=== PATIENT | male | born 1995 | race African-American/Black ===

== ENCOUNTER 2021-01-21 16:05 | Inpatient (IN) | payer OTHER, SELFPAY ==
[2021-01-21] VITALS (7 sets, daily range): BP systolic 95–149; BP diastolic 43–93; PULSE 94–130; RESP 20–22; TEMP 36.6–37.1; O2SAT 98–100; BMI 25.0; BMI 24.2
--- NOTE | ~2021-01-21 | XR_ITS ---
EXAMINATION: XR CHEST CLINICAL INFORMATION: Pneumonia COMPARISON: None TECHNIQUE: Frontal view of the chest was obtained. FINDINGS: No significant abnormality is noted involving the heart, lungs, mediastinum, bony thorax or soft tissues. XR/XR chest 1V IMPRESSION: Unremarkable examination.
[2021-01-21 16:19] LABS: Glucose, Whole Blood 425 mg/dL (60-115)
--- NOTE | 2021-01-21 17:07 | ECG_ITS ---
Test Reason : DKA Blood Pressure : / mmHG Vent. Rate : 108 BPM Atrial Rate : 108 BPM P-R Int : 132 ms QRS Dur : 082 ms QT Int : 324 ms P-R-T Axes : 049 049 023 degrees QTc Int : 434 ms Sinus tachycardia Nonspecific ST and T wave abnormality Abnormal ECG No previous ECGs available Referred By: Carlos Nagy Electronically Signed By:WENDY BRAXTON
[2021-01-21] MEDS: ondansetron HCL 4 MG/2 ML VIAL IVPUSH (17:56)
[2021-01-21] MEDS: Insulin Regular, Human 100 UNIT/ML 3 ML VIAL 7 UNIT IVPUSH (17:56)
[2021-01-21] MEDS: 0.9 % Sodium Chloride 1,000 ML 999 ML IV ×2 (17:56→18:35)
[2021-01-21] MEDS: Ketorolac Tromethamine 15 MG/ML VIAL 30 MG IV (17:56)
[2021-01-21 18:01] LABS: MANUAL DIFF FLAG NO
[2021-01-21 18:05] LABS: Basophils Percent Auto 0.1 % (0-2); Hematocrit 50.4 % (42-52); Hemoglobin 17.5 g/dl (14.0-18.0); Imm Gran Abs Auto 0.07 X10*3/uL (0.00-0.03); Imm Gran Pct Auto 0.4 % (0.0-0.4); Lymphocytes Absolute Auto 1.1 X10*3/uL (1.2-4.9); Lymphocytes Percent Auto 6.3 % (20-40); Mean Corpuscular HGB Conc 34.7 g/dl (31.0-36.0); Mean Corpuscular Hemoglobin 29.1 pg (27.0-33.0); Mean Corpuscular Volume 83.7 fL (80-98); Mean Platelet Volume 10.2 fL (9.4-12.4); Monocytes Absolute Auto 1.2 X10*3/uL (0.1-1.2); Monocytes Percent Auto 6.9 % (2-11); Neutrophils Absolute Auto 14.8 X10*3/uL (2.0-8.3); Neutrophils Percent Auto 86.3 % (45-73); Platelet Count 301 X10*3/uL (160-400); Red Blood Count 6.02 X10*6/uL (4.60-5.80); Venous Blood Gas Refer to POC result; White Blood Count 17.1 X10*3/uL (4.8-10.8)
[2021-01-21 18:06] LABS: VBG Base Excess -4.1 mmol/L; VBG HCO3 19 mmol/L (22-26); VBG pCO2 32 mmHg; VBG pH 7.38 (7.32-7.43); VBG pO2 55 mmHg
[2021-01-21 18:12] LABS: Glucose Urine UA >=1000 MG/DL (NEG); Leukocyte Esterase Urine NEG (NEG); Nitrite Urine NEG (NEG); Specific Gravity - Urine >= 1.030 (1.005-1.025); Urine Blood NEG (NEG); Urine Ketones >=80 MG/DL (NEG); Urine Protein NEG (NEG-TRACE)
[2021-01-21 18:14] LABS: Appearance Urine CLEAR; Color Urine YELLOW
[2021-01-21 18:18] LABS: Acetone, serum QL Small (Negative)
[2021-01-21 18:20] LABS: COVID-19 Test Negative (Negative)
[2021-01-21 18:23] LABS: RBC Urine 0-2 /HPF (0); Squamous Epithelial Cell Urine TRACE /LPF; WBC Urine 0 /HPF (0-4)
[2021-01-21 18:24] LABS: Lactic Acid 2.5 mmol/L (0.5-2.0); Lipase 6 U/L (8-78)
[2021-01-21 18:29] LABS: Troponin-I High Sensitivity 5.6 ng/L (<3.5-35.0)
[2021-01-21 18:30] LABS: Ethanol < 10 mg/dL
[2021-01-21 18:33] LABS: Glucose Random 372 mg/dL (60-115)
[2021-01-21 18:33] LABS: Amphetamine Screen Urine Not Detected (Not Detect); Barbiturates, Urine Not Detected (Not Detect); Benzodiazepines Screen Urine Not Detected (Not Detect); Cannabinoid Screen Urine POSITIVE (Not Detect); Cocaine Screen Urine Not Detected (Not Detect); Opiate Screen Urine Not Detected (Not Detect); Phencyclidine Screen Urine Not Detected (Not Detect)
[2021-01-21 18:35] LABS: Alanine Aminotransferase 10 U/L (0-40); Albumin Level 5.2 g/dL (3.5-5.0); Alkaline Phosphatase 89 U/L (39-117); Aspartate Amino Transferase 11 U/L (5-37); Bilirubin Total 1.2 mg/dL (0.0-1.0); Blood Urea Nitrogen 18 mg/dL (9-16); Calcium 10.8 mg/dL (8.4-10.2); Creatinine Clr Calc Pharmacy 61.5; Estimated Glomerular Filt Rate 51; Total Protein 8.4 g/dL (6.5-8.0)
[2021-01-21] MEDS: Insulin Regular/NS 100 UNIT/100 ML PLAST..BAG 7 UNIT IVCONT (18:35)
[2021-01-21 18:45] LABS: Anion Gap 26 (12-20); Carbon Dioxide 20 mmol/L (22-29); Chloride 91 mmol/L (96-108); Sodium 133 mmol/L (135-145)
[2021-01-21 19:01] LABS: Glucose, Whole Blood 278 mg/dL (60-115)
[2021-01-21 19:01] LABS: Glucose, Whole Blood 314 mg/dL (60-115)
--- NOTE | 2021-01-21 19:20 | ED_ITS ---
HPI - General Adult General Chief complaint: Abdominal Pain Stated complaint: vomiting Time Seen by Provider: 01/21/21 16:41 Source: patient Mode of arrival: ambulatory Limitations: no limitations History of Present Illness HPI narrative: 25-year-old male who presents emergency department for evaluation of abdominal pain, nausea and vomiting. Patient states that he became sick yesterday. He states that he has not been able to eat or drink over the past 24 hours. He states that any time he tries to take in anything orally he vomits. He is also complaining of lower abdominal pain. He describes the pain as a intermittent, ?hunger like ? pain. The pain is 7/10 at its worst. The patient states that he had a similar episode approximately 2 weeks prior was admitted to [facility] for diabetic ketoacidosis. The patient states that he takes Humalog 25/75 twice a day he states that he has missed some doses of this medication. He denied fever, chills, chest pain, shortness of breath, cough, d yspnea on exertion, changes bowel movements. He has noted urinary frequency but no dysuria. Related Data Allergies Allergy/AdvReac Type Severity Reaction Status Date / Time passion fruit [PASSION FRUIT] Allergy Unknown UNK Verified 01/21/21 16:13 Review of Systems Review of Systems: Yes all other systems are reviewed and are negative [facility] Past Medical History [facility] Narrative: Past medical history: Diabetes mellitus, DKA. Surgical history: None. Social history: Denies tobacco use. States that he drinks alcohol every other week. He states he does smoke marijuana 2-3 times every other day. Medical History Diabetes Gastroparesis Social History Social History Patient Tobacco Use Status: Never used Tobacco Use of substances other than those prescribed or required for medical reasons: Yes Substance Use Type: Marijuana Advance Directives: No Advance Directives Information Provided: Yes Physical Exam Vital Signs: Vital Signs: Last Vital Signs Temp 98.3 F 01/21/21 18:33 Pulse 94 01/21/21 18:33 Resp 20 01/21/21 18:33 BP 109/55 L 01/21/21 18:33 Pulse Ox 100 01/21/21 18:33 Body Mass Index 24.2 Const: Other: Strong ketotic odor to the patient's breath General: cooperative Nutritional Appearance: thin Orientation/consciousness: oriented to person and oriented to place Limitations: no limitations HENMT: Head: Yes normal to inspection, Yes normocephalic and Yes atraumatic Ears: external ears normal General nose exam: Normal external nose present Face and sinus: Yes normal facial exam Mouth: other (Dry mucosa) Throat: Yes posterior oropharynx normal Eyes: Periorbital: periorbital findings normal Eyelids: Yes eyelids normal Conjunctivae: conjunctivae normal Sclerae: sclerae normal Corneas: corneas normal Pupils: Equal, round and reactive pupils present Direct Ophthalmoscopy: normal light reflex Neck: Neck: Yes full ROM, Yes no lymphadenopathy, Yes no meningeal signs, Yes trachea midline and Yes supple Chest: Chest palpation & inspection: normal inspection of the chest and normal palpation of entire chest wall Resp: Effort & Inspection: able to speak in complete sentences and abnormal respiratory pattern other (Tachypnea) Auscultation: clear to auscultation bilaterally Cardio: Rate: regular rate Rhythm: regular rhythm Heart sounds: S1 normal heart sound present, S2 normal heart sound present and no murmurs GI: Inspection: Yes normal to inspection Palpation (GI): Soft to palpation, Tenderness to palpation present (GI) in the LLQ (Moderate), in the LUQ (Moderate) and suprapubicly (Moderate), no guarding, not rigid and No hepatosplenomegaly present : General: Yes no CVA tenderness Back/Spine/Pelvis: Back: no CVA tenderness Cervical Spine: normal cervical lordosis Thoracic/Lumbar Spine: thoracic and lumbar spine normal to inspection Skin: Lesions: no lesions Rashes: no rashes Wounds: no wounds Neuro: General: oriented to person, oriented to place and no meningeal signs Cranial nerves: Yes CN's II-XII intact bilaterally and Yes Equal, round and reactive pupils present Cognition (Neuro): normal cognition Motor exam (neuro): 5/5 motor strength present throughout Extrem: General: Yes normal to inspection and Yes full ROM Psych: Appearance: well kempt Mental Status: mental status grossly normal Speech and movement: Normal speech and movement present Affect: normal affect Attitude: cooperative Thought process: Normal thought process present Thought content: Normal thought content present Course Course Course Narrative: 25-year-old male with history of diabetes mellitus and DKA 2 weeks prior admitted to [facility] who presents emergency department for evaluation 24 hours of nausea, vomiting and abdominal pain, the patient has also been noncompliant with his insulin regimen. Vital signs reveal a slightly low blood pressure of 109/55 with a map of 73. The patient had a very strong ketotic odor to his breath, did have lower abdominal tenderness otherwise exam was unremarkable. The patient's presentation is consistent with DKA. I ordered a CBC, CMP, acetone, venous blood gas, urinalysis, chest x-ray two view, COVID-19 test. Patient was ordered to get normal saline IV x2 L, regular insul in bolus 7 mg IV and an insulin drip at 7 milligrams/hour. Patient will have q.1 hour point of care glucose. 192: Patient's laboratory [place] [address], low bicarb of 20, elevated glucose of 372 patient's BUN was normal at 18 with an elevated creatinine of 1.67. Venous blood gas revealed a pH of 7.3 H. serum qualitative acetone came back as small. Urinalysis was positive for ketones. Chest x-ray was unremarkable. COVID-19 test was negative. I did discuss the patient's presentation with the covering labor utilization superintendent, Dr. Ventura. He concurred that the patient is in DKA and he did accept the patient into the intensive care unit. After the 2 L normal saline bolus, he recommended that the patient be placed on D5 NS with 20 mEq of potassium at 150 mL/hr. Medical Decision Making Lab Data Result diagrams: 01/21/21 17:49 01/21/21 17:49 Labs: Lab Results 01/21/21 01/21/21 01/21/21 Range/Units 16:12 17:49 17:49 WBC (4.8-10.8) X10*3/uL RBC (4.60-5.80) X10*6/uL Hgb (14.0-18.0) g/dl Hct (42-52) % MCV (80-98) fL MCH (27.0-33.0) pg MCHC (31.0-36.0) g/dl RDW (11.0-16.0) % Plt Count (160-400) X10*3/uL MPV (9.4-12.4) fL Immature Gran % (Auto) (0.0-0.4) % Neut % (Auto) (45-73) % Lymph % (Auto) (20-40) % Barnes % (Auto) (2-11) % Eos % (Auto) (0-4) % Baso % (Auto) (0-2) % Lymph # (Auto) (1.2-4.9) X10*3/uL Barnes # (Auto) (0.1-1.2) X10*3/uL Eos # (Auto) (0.0-0.4) X10*3/uL Baso # (Auto) (0.0-0.2) X10*3/uL Abs Immat Gran (auto) (0.00-0.03) X10*3/uL Absolute Neuts (auto) (2.0-8.3) X10*3/uL Absolute Nucleated RBC (0.0-0.012) X10*3/uL Nucleated RBC % (auto) (0.0-0.2) /100WBC VBG pH (7.32-7.43) VBG pCO2 mmHg VBG pO2 mmHg VBG HCO3 (22-26) mmol/L VBG O2 Saturation % VBG Base Excess mmol/L Sodium (135-145) mmol/L Potassium (3.3-5.1) mmol/L Chloride (96-108) mmol/L Carbon Dioxide (22-29) mmol/L Anion Gap (12-20) BUN (9-16) mg/dL Creatinine (0.5-1.4) mg/dL Estim Creat Clear Calc Estimated GFR POC Glucose 425 H* (60-115) mg/dL Random Glucose (60-115) mg/dL Lactic Acid (0.5-2.0) mmol/L Calcium (8.4-10.2) mg/dL Total Bilirubin (0.0-1.0) mg/dL AST (5-37) U/L ALT (0-40) U/L Alkaline Phosphatase (39-117) U/L Total Creatine Kinase (38-174) U/L Troponin I High Sens 5.6 (<3.5-35.0) ng/L Total Protein (6.5-8.0) g/dL Albumin (3.5-5.0) g/dL Lipase 6 L (8-78) U/L Urine Color Urine Appearance Urine pH (5.0-8.0) Ur Specific [place] (1.005-1.025) Urine Protein (NEG-TRACE) MG/DL Urine Glucose (UA) (NEG) MG/DL Urine Ketones (NEG) MG/DL Urine Blood (NEG) Urine Nitrite (NEG) Ur Leukocyte Esterase (NEG) Urine RBC (0) /HPF Urine WBC (0-4) /HPF Ur Squamous Epith Cells /LPF Urine Bacteria /LPF Urine Opiates Screen (Not Detect) Ur Barbiturates Screen (Not Detect) Ur Phencyclidine Scrn (Not Detect) Ur Amphetamines Screen (Not Detect) U Benzodiazepines Scrn (Not Detect) Urine Cocaine Screen (Not Detect) U Marijuana (THC) Screen (Not Detect) Ethyl Alcohol mg/dL Acetone, Qual Small H (Negative) COVID-19 (EARLINE) (Negative) COVID-19 Clin Com 01/21/21 01/21/21 01/21/21 Range/Units 17:49 17:49 17:49 WBC 17.1 H (4.8-10.8) X10*3/uL RBC 6.02 H (4.60-5.80) X10*6/uL Hgb 17.5 (14.0-18.0) g/dl Hct 50.4 (42-52) % MCV 83.7 (80-98) fL MCH 29.1 (27.0-33.0) pg MCHC 34.7 (31.0-36.0) g/dl RDW 12.0 (11.0-16.0) % Plt Count 301 (160-400) X10*3/uL MPV 10.2 (9.4-12.4) fL Immature Gran % (Auto) 0.4 (0.0-0.4) % Neut % (Auto) 86.3 H (45-73) % Lymph % (Auto) 6.3 L (20-40) % Barnes % (Auto) 6.9 (2-11) % Eos % (Auto) 0.0 (0-4) % Baso % (Auto) 0.1 (0-2) % Lymph # (Auto) 1.1 L (1.2-4.9) X10*3/uL Barnes # (Auto) 1.2 (0.1-1.2) X10*3/uL Eos # (Auto) 0.0 (0.0-0.4) X10*3/uL Baso # (Auto) 0.0 (0.0-0.2) X10*3/uL Abs Immat Gran (auto) 0.07 H (0.00-0.03) X10*3/uL Absolute Neuts (auto) 14.8 H (2.0-8.3) X10*3/uL Absolute Nucleated RBC 0.000 (0.0-0.012) X10*3/uL Nucleated RBC % (auto) 0.0 (0.0-0.2) /100WBC VBG pH (7.32-7.43) VBG pCO2 mmHg VBG pO2 mmHg VBG HCO3 (22-26) mmol/L VBG O2 Saturation % VBG Base Excess mmol/L Sodium 133 L (135-145) mmol/L Potassium 4.0 (3.3-5.1) mmol/L Chloride 91 L (96-108) mmol/L Carbon Dioxide 20 L (22-29) mmol/L Anion Gap 26 H (12-20) BUN 18 H (9-16) mg/dL Creatinine 1.67 H (0.5-1.4) mg/dL Estim Creat Clear Calc 61.5 Estimated GFR 51 POC Glucose (60-115) mg/dL Random Glucose 372 H* (60-115) mg/dL Lactic Acid 2.5 H* (0.5-2.0) mmol/L Calcium 10.8 H (8.4-10.2) mg/dL Total Bilirubin 1.2 H (0.0-1.0) mg/dL AST 11 (5-37) U/L ALT 10 (0-40) U/L Alkaline Phosphatase 89 (39-117) U/L Total Creatine Kinase 82 (38-174) U/L Troponin I High Sens (<3.5-35.0) ng/L Total Protein 8.4 H (6.5-8.0) g/dL Albumin 5.2 H (3.5-5.0) g/dL Lipase (8-78) U/L Urine Color Urine Appearance Urine pH (5.0-8.0) Ur Specific [place] (1.005-1.025) Urine Protein (NEG-TRACE) MG/DL Urine Glucose (UA) (NEG) MG/DL Urine Ketones (NEG) MG/DL Urine Blood (NEG) Urine Nitrite (NEG) Ur Leukocyte Esterase (NEG) Urine RBC (0) /HPF Urine WBC (0-4) /HPF Ur Squamous Epith Cells /LPF Urine Bacteria /LPF Urine Opiates Screen (Not Detect) Ur Barbiturates Screen (Not Detect) Ur Phencyclidine Scrn (Not Detect) Ur Amphetamines Screen (Not Detect) U Benzodiazepines Scrn (Not Detect) Urine Cocaine Screen (Not Detect) U Marijuana (THC) Screen (Not Detect) Ethyl Alcohol mg/dL Acetone, Qual (Negative) COVID-19 (EARLINE) (Negative) COVID-19 Clin Com 01/21/21 01/21/21 01/21/21 Range/Units 17:49 17:50 17:50 WBC (4.8-10.8) X10*3/uL RBC (4.60-5.80) X10*6/uL Hgb (14.0-18.0) g/dl Hct (42-52) % MCV (80-98) fL MCH (27.0-33.0) pg MCHC (31.0-36.0) g/dl RDW (11.0-16.0) % Plt Count (160-400) X10*3/uL MPV (9.4-12.4) fL Immature Gran % (Auto) (0.0-0.4) % Neut % (Auto) (45-73) % Lymph % (Auto) (20-40) % Barnes % (Auto) (2-11) % Eos % (Auto) (0-4) % Baso % (Auto) (0-2) % Lymph # (Auto) (1.2-4.9) X10*3/uL Barnes # (Auto) (0.1-1.2) X10*3/uL Eos # (Auto) (0.0-0.4) X10*3/uL Baso # (Auto) (0.0-0.2) X10*3/uL Abs Immat Gran (auto) (0.00-0.03) X10*3/uL Absolute Neuts (auto) (2.0-8.3) X10*3/uL Absolute Nucleated RBC (0.0-0.012) X10*3/uL Nucleated RBC % (auto) (0.0-0.2) /100WBC VBG pH (7.32-7.43) VBG pCO2 mmHg VBG pO2 mmHg VBG HCO3 (22-26) mmol/L VBG O2 Saturation % VBG Base Excess mmol/L Sodium (135-145) mmol/L Potassium (3.3-5.1) mmol/L Chloride (96-108) mmol/L Carbon Dioxide (22-29) mmol/L Anion Gap (12-20) BUN (9-16) mg/dL Creatinine (0.5-1.4) mg/dL Estim Creat Clear Calc Estimated GFR POC Glucose (60-115) mg/dL Random Glucose (60-115) mg/dL Lactic Acid (0.5-2.0) mmol/L Calcium (8.4-10.2) mg/dL Total Bilirubin (0.0-1.0) mg/dL AST (5-37) U/L ALT (0-40) U/L Alkaline Phosphatase (39-117) U/L Total Creatine Kinase (38-174) U/L Troponin I High Sens (<3.5-35.0) ng/L Total Protein (6.5-8.0) g/dL Albumin (3.5-5.0) g/dL Lipase (8-78) U/L Urine Color YELLOW Urine Appearance CLEAR Urine pH 6.0 (5.0-8.0) Ur Specific [place] >= 1.030 H (1.005-1.025) Urine Protein NEG (NEG-TRACE) MG/DL Urine Glucose (UA) >=1000 H (NEG) MG/DL Urine Ketones >=80 (NEG) MG/DL Urine Blood NEG (NEG) Urine Nitrite NEG (NEG) Ur Leukocyte Esterase NEG (NEG) Urine RBC 0-2 (0) /HPF Urine WBC 0 (0-4) /HPF Ur Squamous Epith Cells TRACE /LPF Urine Bacteria NONE /LPF Urine Opiates Screen (Not Detect) Ur Barbiturates Screen (Not Detect) Ur Phencyclidine Scrn (Not Detect) Ur Amphetamines Screen (Not Detect) U Benzodiazepines Scrn (Not Detect) Urine Cocaine Screen (Not Detect) U Marijuana (THC) Screen (Not Detect) Ethyl Alcohol < 10 mg/dL Acetone, Qual (Negative) COVID-19 (EARLINE) Negative (Negative) COVID-19 Clin Com See Note 01/21/21 01/21/21 01/21/21 Range/Units 17:50 17:59 18:08 WBC (4.8-10.8) X10*3/uL RBC (4.60-5.80) X10*6/uL Hgb (14.0-18.0) g/dl Hct (42-52) % MCV (80-98) fL MCH (27.0-33.0) pg MCHC (31.0-36.0) g/dl RDW (11.0-16.0) % Plt Count (160-400) X10*3/uL MPV (9.4-12.4) fL Immature Gran % (Auto) (0.0-0.4) % Neut % (Auto) (45-73) % Lymph % (Auto) (20-40) % Barnes % (Auto) (2-11) % Eos % (Auto) (0-4) % Baso % (Auto) (0-2) % Lymph # (Auto) (1.2-4.9) X10*3/uL Barnes # (Auto) (0.1-1.2) X10*3/uL Eos # (Auto) (0.0-0.4) X10*3/uL Baso # (Auto) (0.0-0.2) X10*3/uL Abs Immat Gran (auto) (0.00-0.03) X10*3/uL Absolute Neuts (auto) (2.0-8.3) X10*3/uL Absolute Nucleated RBC (0.0-0.012) X10*3/uL Nucleated RBC % (auto) (0.0-0.2) /100WBC VBG pH 7.38 (7.32-7.43) VBG pCO2 32 mmHg VBG pO2 55 mmHg VBG HCO3 19 L (22-26) mmol/L VBG O2 Saturation 85.0 % VBG Base Excess -4.1 mmol/L Sodium (135-145) mmol/L Potassium (3.3-5.1) mmol/L Chloride (96-108) mmol/L Carbon Dioxide (22-29) mmol/L Anion Gap (12-20) BUN (9-16) mg/dL Creatinine (0.5-1.4) mg/dL Estim Creat Clear Calc Estimated GFR POC Glucose 314 H (60-115) mg/dL Random Glucose (60-115) mg/dL Lactic Acid (0.5-2.0) mmol/L Calcium (8.4-10.2) mg/dL Total Bilirubin (0.0-1.0) mg/dL AST (5-37) U/L ALT (0-40) U/L Alkaline Phosphatase (39-117) U/L Total Creatine Kinase (38-174) U/L Troponin I High Sens (<3.5-35.0) ng/L Total Protein (6.5-8.0) g/dL Albumin (3.5-5.0) g/dL Lipase (8-78) U/L Urine Color Urine Appearance Urine pH (5.0-8.0) Ur Specific [place] (1.005-1.025) Urine Protein (NEG-TRACE) MG/DL Urine Glucose (UA) (NEG) MG/DL Urine Ketones (NEG) MG/DL Urine Blood (NEG) Urine Nitrite (NEG) Ur Leukocyte Esterase (NEG) Urine RBC (0) /HPF Urine WBC (0-4) /HPF Ur Squamous Epith Cells /LPF Urine Bacteria /LPF Urine Opiates Screen Not Detected (Not Detect) Ur Barbiturates Screen Not Detected (Not Detect) Ur Phencyclidine Scrn Not Detected (Not Detect) Ur Amphetamines Screen Not Detected (Not Detect) U Benzodiazepines Scrn Not Detected (Not Detect) Urine Cocaine Screen Not Detected (Not Detect) U Marijuana (THC) Screen POSITIVE H (Not Detect) Ethyl Alcohol mg/dL Acetone, Qual (Negative) COVID-19 (EARLINE) (Negative) COVID-19 Clin Com 01/21/21 Range/Units 18:56 WBC (4.8-10.8) X10*3/uL RBC (4.60-5.80) X10*6/uL Hgb (14.0-18.0) g/dl Hct (42-52) % MCV (80-98) fL MCH (27.0-33.0) pg MCHC (31.0-36.0) g/dl RDW (11.0-16.0) % Plt Count (160-400) X10*3/uL MPV (9.4-12.4) fL Immature Gran % (Auto) (0.0-0.4) % Neut % (Auto) (45-73) % Lymph % (Auto) (20-40) % Barnes % (Auto) (2-11) % Eos % (Auto) (0-4) % Baso % (Auto) (0-2) % Lymph # (Auto) (1.2-4.9) X10*3/uL Barnes # (Auto) (0.1-1.2) X10*3/uL Eos # (Auto) (0.0-0.4) X10*3/uL Baso # (Auto) (0.0-0.2) X10*3/uL Abs Immat Gran (auto) (0.00-0.03) X10*3/uL Absolute Neuts (auto) (2.0-8.3) X10*3/uL Absolute Nucleated RBC (0.0-0.012) X10*3/uL Nucleated RBC % (auto) (0.0-0.2) /100WBC VBG pH (7.32-7.43) VBG pCO2 mmHg VBG pO2 mmHg VBG HCO3 (22-26) mmol/L VBG O2 Saturation % VBG Base Excess mmol/L Sodium (135-145) mmol/L Potassium (3.3-5.1) mmol/L Chloride (96-108) mmol/L Carbon Dioxide (22-29) mmol/L Anion Gap (12-20) BUN (9-16) mg/dL Creatinine (0.5-1.4) mg/dL Estim Creat Clear Calc Estimated GFR POC Glucose 278 H (60-115) mg/dL Random Glucose (60-115) mg/dL Lactic Acid (0.5-2.0) mmol/L Calcium (8.4-10.2) mg/dL Total Bilirubin (0.0-1.0) mg/dL AST (5-37) U/L ALT (0-40) U/L Alkaline Phosphatase (39-117) U/L Total Creatine Kinase (38-174) U/L Troponin I High Sens (<3.5-35.0) ng/L Total Protein (6.5-8.0) g/dL Albumin (3.5-5.0) g/dL Lipase (8-78) U/L Urine Color Urine Appearance Urine pH (5.0-8.0) Ur Specific [place] (1.005-1.025) Urine Protein (NEG-TRACE) MG/DL Urine Glucose (UA) (NEG) MG/DL Urine Ketones (NEG) MG/DL Urine Blood (NEG) Urine Nitrite (NEG) Ur Leukocyte Esterase (NEG) Urine RBC (0) /HPF Urine WBC (0-4) /HPF Ur Squamous Epith Cells /LPF Urine Bacteria /LPF Urine Opiates Screen (Not Detect) Ur Barbiturates Screen (Not Detect) Ur Phencyclidine Scrn (Not Detect) Ur Amphetamines Screen (Not Detect) U Benzodiazepines Scrn (Not Detect) Urine Cocaine Screen (Not Detect) U Marijuana (THC) Screen (Not Detect) Ethyl Alcohol mg/dL Acetone, Qual (Negative) COVID-19 (EARLINE) (Negative) COVID-19 Clin Com Critical Care Time Critical Care Time Critical Care Time: Yes Total Critical Care Time: 50 Attestation: Critical Care: The patient was critically ill with a high probability of imminent or life threatening deterioration. I spent greater than 30 minutes of discontinuous time evaluating the patient,delivering critical care at the bedside, discussing and evaluating pertinent data with consultants. Critical care time does not include time spent performing separately billable procedures or teaching. Total time spent performing critical care was 50 minutes.
[2021-01-21] MEDS: KCl 20 mEq in 5 % Dextrose 20 MEQ/1,000 ML IV.SOLN 150 MEQ IVCONT (19:54)
[2021-01-21 20:00] LABS: Reflex Lactate? Lactic Acid Added
--- NOTE | 2021-01-21 20:00 | PM.CCHP ---
History of Present Illness Date of Service: 01/21/21 Chief Complaint: vomiting Patient is a 25-year-old male past medical history type 1 diabetes and gastroparesis who comes in after vomiting x2 days. Patient states he last took his Humalog/NovoLog mix insuiln this morning. He states he has not eaten any food in 24 hours and has just been vomiting. He also admits to diffuse abdominal pain, increased thirst and increased urination. Denies any fevers chills diarrhea. He states he was just hospitalized for DKA at [facility] a few weeks ago. His mother and his aunt are here with him today, his mom states that he is very noncompliant with his medications and his sleep schedule will is always different so he does not take his medications in a timely fashion nor does he give himself insulin when he eats. labs significant for WBC 17.1 likely 2/2 vomiting, pt is not septic, Na 133, K 4, Cl 91, serum bicarb 20, AG 26, BUN 18, Cr 1.67, bg 372 upon arrival to ED, acetone small, vbg hco3 19, marijuana positive, CXR neg, COVID neg Patient will be admitted to the ICU for DKA, mixed metabolic picture of DKA and met alk 2/2 vomiting. Discussed assessment and plan with Dr. Ventura Review of Systems Review of Systems: Yes all other systems are reviewed and are negative [facility] Past Medical History Medical History Diabetes Gastroparesis Social History Social History Household Members: None Housing: Apartment Do you presently have visiting nurse or other home services: No Patient Tobacco Use Status: Never used Tobacco Substance Use Type: Marijuana Advance Directives: Yes Advance Directives on File: Yes Advance Directives Date on File: 01/22/21 service: No Current occupational status: employed Meds Allergies Allergy/AdvReac Type Severity Reaction Status Date / Time passion fruit [PASSION FRUIT] Allergy Unknown UNK Verified 01/21/21 16:13 Active Medications: Current Medications Generic Name Dose Route Start Last Admin Trade Name Freq PRN Reason Stop Dose Admin Insulin Human Regular 100 unit in 100 mls @ 0 mls/hr 01/21/21 17:15 01/21/21 18:35 Myxredlin IVCONT 7 unit/hr .Q0M DESTINY 7 mls/hr Administration Protocol Per Protocol Potassium Chloride/Dextrose 20 meq in 1,000 mls @ 150 mls/hr 01/21/21 19:30 01/21/21 19:54 IVCONT 150 mls/hr .Q6H40M DESTINY Administration Physical Exam Vital Signs: Vital Signs: Last Vital Signs Temp 98.3 F 01/21/21 18:33 Pulse 94 01/21/21 18:33 Resp 20 01/21/21 18:33 BP 109/55 L 01/21/21 18:33 Pulse Ox 100 01/21/21 18:33 Body Mass Index 24.2 Const: General: cooperative, healthy appearing, comfortable, no acute distress, well developed and tired appearing Nutritional Appearance: average body habitus Orientation/consciousness: patient oriented x3 Limitations: no limitations HENMT: Head: Yes normal to inspection Eyes: General: appearance normal, both eyes and all related structures Neck: Neck: Yes normal visual inspection and Yes full ROM Resp: Effort & Inspection: normal respiratory effort and able to speak in complete sentences Auscultation: clear to auscultation bilaterally Cardio: Rate: tachycardic Rhythm: regular rhythm Heart sounds: normal S1 and S2 GI: Inspection: Yes normal to inspection Palpation (GI): Soft to palpation and nontender Skin: General skin exam: no rashes or lesions noted Neuro: General: patient oriented x3 Extrem: General: Yes normal to inspection Results Labs CBC and Chem 7: 01/21/21 17:49 01/22/21 05:11 Labs: Laboratory Results - last 24 hr 01/21/21 01/21/21 01/21/21 16:12 17:49 17:49 MCV MCH MCHC RDW Plt Count MPV Immature Gran % (Auto) Neut % (Auto) Lymph % (Auto) [place] % (Auto) Eos % (Auto) Baso % (Auto) Lymph # (Auto) [place] # (Auto) Eos # (Auto) Baso # (Auto) Abs Immat Gran (auto) Absolute Neuts (auto) Absolute Nucleated RBC Nucleated RBC % (auto) VBG pH VBG pCO2 VBG pO2 VBG HCO3 VBG O2 Saturation VBG Base Excess Anion Gap Estim Creat Clear Calc Estimated GFR POC Glucose 425 H* Random Glucose Lactic Acid Calcium Total Bilirubin AST ALT Alkaline Phosphatase Total Creatine Kinase Troponin I High Sens 5.6 Total Protein Albumin Lipase 6 L Urine Color Urine Appearance Urine pH Ur Specific [place] Urine Protein Urine Glucose (UA) Urine Ketones Urine Blood Urine Nitrite Ur Leukocyte Esterase Urine RBC Urine WBC Ur Squamous Epith Cells Urine Bacteria Urine Opiates Screen Ur Barbiturates Screen Ur Phencyclidine Scrn Ur Amphetamines Screen U Benzodiazepines Scrn Urine Cocaine Screen U Marijuana (THC) Screen Ethyl Alcohol Acetone, Qual Small H COVID-19 (EARLINE) COVID-19 [employer] [facility] 01/21/21 01/21/21 01/21/21 17:49 17:49 17:49 MCV 83.7 MCH 29.1 MCHC 34.7 RDW 12.0 Plt Count 301 MPV 10.2 Immature Gran % (Auto) 0.4 Neut % (Auto) 86.3 H Lymph % (Auto) 6.3 L [place] % (Auto) 6.9 Eos % (Auto) 0.0 Baso % (Auto) 0.1 Lymph # (Auto) 1.1 L [place] # (Auto) 1.2 Eos # (Auto) 0.0 Baso # (Auto) 0.0 Abs Immat Gran (auto) 0.07 H Absolute Neuts (auto) 14.8 H Absolute Nucleated RBC 0.000 Nucleated RBC % (auto) 0.0 VBG pH VBG pCO2 VBG pO2 VBG HCO3 VBG O2 Saturation VBG Base Excess Anion Gap 26 H Estim Creat Clear Calc 61.5 Estimated GFR 51 POC Glucose Random Glucose 372 H* Lactic Acid 2.5 H* Calcium 10.8 H Total Bilirubin 1.2 H AST 11 ALT 10 Alkaline Phosphatase 89 Total Creatine Kinase 82 Troponin I High Sens Total Protein 8.4 H Albumin 5.2 H Lipase Urine Color Urine Appearance Urine pH Ur Specific [place] Urine Protein Urine Glucose (UA) Urine Ketones Urine Blood Urine Nitrite Ur Leukocyte Esterase Urine RBC Urine WBC Ur Squamous Epith Cells Urine Bacteria Urine Opiates Screen Ur Barbiturates Screen Ur Phencyclidine Scrn Ur Amphetamines Screen U Benzodiazepines Scrn Urine Cocaine Screen U Marijuana (THC) Screen Ethyl Alcohol Acetone, Qual COVID-19 (EARLINE) COVID-19 [employer] 01/21/21 01/21/21 01/21/21 17:49 17:50 17:50 MCV MCH MCHC RDW Plt Count MPV Immature Gran % (Auto) Neut % (Auto) Lymph % (Auto) [place] % (Auto) Eos % (Auto) Baso % (Auto) Lymph # (Auto) [place] # (Auto) Eos # (Auto) Baso # (Auto) Abs Immat Gran (auto) Absolute Neuts (auto) Absolute Nucleated RBC Nucleated RBC % (auto) VBG pH VBG pCO2 VBG pO2 VBG HCO3 VBG O2 Saturation VBG Base Excess Anion Gap Estim Creat Clear Calc Estimated GFR POC Glucose Random Glucose Lactic Acid Calcium Total Bilirubin AST ALT Alkaline Phosphatase Total Creatine Kinase Troponin I High Sens Total Protein Albumin Lipase Urine Color YELLOW Urine Appearance CLEAR Urine pH 6.0 Ur Specific [place] >= 1.030 H Urine Protein NEG Urine Glucose (UA) >=1000 H Urine Ketones >=80 Urine Blood NEG Urine Nitrite NEG Ur Leukocyte Esterase NEG Urine RBC 0-2 Urine WBC 0 Ur Squamous Epith Cells TRACE Urine Bacteria NONE Urine Opiates Screen Ur Barbiturates Screen Ur Phencyclidine Scrn Ur Amphetamines Screen U Benzodiazepines Scrn Urine Cocaine Screen U Marijuana (THC) Screen Ethyl Alcohol < 10 Acetone, Qual COVID-19 (EARLINE) Negative COVID-19 Clin Com See Note 01/21/21 01/21/21 01/21/21 17:50 17:59 18:08 MCV MCH MCHC RDW Plt Count MPV Immature Gran % (Auto) Neut % (Auto) Lymph % (Auto) [place] % (Auto) Eos % (Auto) Baso % (Auto) Lymph # (Auto) [place] # (Auto) Eos # (Auto) Baso # (Auto) Abs Immat Gran (auto) Absolute Neuts (auto) Absolute Nucleated RBC Nucleated RBC % (auto) VBG pH 7.38 VBG pCO2 32 VBG pO2 55 VBG HCO3 19 L VBG O2 Saturation 85.0 VBG Base Excess -4.1 Anion Gap Estim Creat Clear Calc Estimated GFR POC Glucose 314 H Random Glucose Lactic Acid Calcium Total Bilirubin AST ALT Alkaline Phosphatase Total Creatine Kinase Troponin I High Sens Total Protein Albumin Lipase Urine Color Urine Appearance Urine pH Ur Specific [place] Urine Protein Urine Glucose (UA) Urine Ketones Urine Blood Urine Nitrite Ur Leukocyte Esterase Urine RBC Urine WBC Ur Squamous Epith Cells Urine Bacteria Urine Opiates Screen Not Detected Ur Barbiturates Screen Not Detected Ur Phencyclidine Scrn Not Detected Ur Amphetamines Screen Not Detected U Benzodiazepines Scrn Not Detected Urine Cocaine Screen Not Detected U Marijuana (THC) Screen POSITIVE H Ethyl Alcohol Acetone, Qual COVID-19 (EARLINE) COVID-19 Clin Com 01/21/21 18:56 MCV MCH MCHC RDW Plt Count MPV Immature Gran % (Auto) Neut % (Auto) Lymph % (Auto) [place] % (Auto) Eos % (Auto) Baso % (Auto) Lymph # (Auto) [place] # (Auto) Eos # (Auto) Baso # (Auto) Abs Immat Gran (auto) Absolute Neuts (auto) Absolute Nucleated RBC Nucleated RBC % (auto) VBG pH VBG pCO2 VBG pO2 VBG HCO3 VBG O2 Saturation VBG Base Excess Anion Gap Estim Creat Clear Calc Estimated GFR POC Glucose 278 H Random Glucose Lactic Acid Calcium Total Bilirubin AST ALT Alkaline Phosphatase Total Creatine Kinase Troponin I High Sens Total Protein Albumin Lipase Urine Color Urine Appearance Urine pH Ur Specific [place] Urine Protein Urine Glucose (UA) Urine Ketones Urine Blood Urine Nitrite Ur Leukocyte Esterase Urine RBC Urine WBC Ur Squamous Epith Cells Urine Bacteria Urine Opiates Screen Ur Barbiturates Screen Ur Phencyclidine Scrn Ur Amphetamines Screen U Benzodiazepines Scrn Urine Cocaine Screen U Marijuana (THC) Screen Ethyl Alcohol Acetone, Qual COVID-19 (EARLINE) COVID-19 Clin Com Imaging Radiologist's Impressions: Impressions Chest X-Ray 01/21/21 17:08 IMPRESSION: Unremarkable examination. Assessment and Plan (1) Diabetic keto-acidosis: Qualifiers: Diabetes mellitus complication detail: without coma Diabetes mellitus type: type 1 Qualified Code(s): E10.10 - Type 1 diabetes mellitus with ketoacidosis without coma Status: Acute Insulin drip, hourly poc, follow metabolic panel until anion gap is closed and rehyrdate with D5NS with 20K at 80/hr (2) Abdominal pain: Qualifiers: Abdominal location: lower abdomen, unspecified Qualified Code(s): R10.30 - Lower abdominal pain, unspecified Status: Acute Likely secondary to DKA, should resolve with fluid resuscitation and metabolic derangement correction (3) Vomiting: Qualifiers: Nausea presence: with nausea Vomiting Intractability: non-intractable Vomiting type: unspecified Qualified Code(s): R11.2 - Nausea with vomiting, unspecified Status: Acute Likely secondary to DKA, should resolve with fluid resuscitation and metabolic derangement correction (4) Metabolic alkalosis: Status: Acute Secondary to vomiting. will correct with correction of vomiting, will rehydrate and follow metabolic panel (5) GISSELLE (acute kidney injury): Status: Acute Likely secondary to dehydration, rehydrate and will follow renal indices
[2021-01-21 20:03] LABS: Glucose, Whole Blood 179 mg/dL (60-115)
[2021-01-21 21:08] LABS: Glucose, Whole Blood 161 mg/dL (60-115)
--- NOTE | 2021-01-21 21:22 | PC.NURSE ---
REPORT GIVEN TO [facility] [facility], DUE FOR TRANSPORT. PT HAS EATEN A BITE OF JELLO AND A FEW BITES OF TURKEY SANDWICH APPROVED BY PA. NO CHANGES IN INSULIN GTT AT THIS TIME, SEE POCS. NO EPISODES OF VOMITING SINCE ARRIVAL TO ED.
--- NOTE | 2021-01-21 21:34 | MHC.CM.PN ---
CM met with pt. Being admitted to ICU with DKA. Pt lives alone, has no services or DME. PCP is P[facility] Olivo. No HCP on file. Reviewed, completed and signed HCP. HCP Cami Howe, mother ([phone]). Pt may benefit from diabetic teaching review. D/C plan is home without services. Mother to provide transportation home. CM to follow for d/c needs.
[2021-01-21 21:58] LABS: ~Lactic Acid-LAB USE ONLY 1.4 mmol/L (0.5-2.0)
[2021-01-21 22:07] LABS: Glucose, Whole Blood 136 mg/dL (60-115)
[2021-01-21] MEDS: Metoclopramide HCl 10 MG/2 ML VIAL 5 MG IVPUSH (22:44)
[2021-01-21] MEDS: LORazepam 2 MG/ML VIAL 1 MG IVPUSH (22:44)
[2021-01-21 22:59] LABS: VBG Base Excess -0.1 mmol/L; VBG HCO3 23 mmol/L (22-26); VBG pCO2 33 mmHg; VBG pH 7.44 (7.32-7.43); VBG pO2 66 mmHg
[2021-01-21 23:08] LABS: Glucose, Whole Blood 144 mg/dL (60-115)
[2021-01-21 23:30] LABS: Anion Gap 14 (12-20); Blood Urea Nitrogen 15 mg/dL (9-16); Calcium 8.7 mg/dL (8.4-10.2); Carbon Dioxide 23 mmol/L (22-29); Chloride 103 mmol/L (96-108); Creatinine Clr Calc Pharmacy 94.3; Estimated Glomerular Filt Rate > 60; Glucose Random 144 mg/dL (60-115); Potassium 3.6 mmol/L (3.3-5.1); Sodium 136 mmol/L (135-145)
[2021-01-21 23:50] LABS: Venous Blood Gas Refer to POC result
[2021-01-22] VITALS (14 sets, daily range): BP systolic 102–146; BP diastolic 51–96; PULSE 77–100; RESP 14–26; TEMP 36–37.1; O2SAT 95–100; BMI 25.2
[2021-01-22 01:09] LABS: Glucose, Whole Blood 121 mg/dL (60-115)
[2021-01-22 02:25] LABS: Anion Gap 12 (12-20); Blood Urea Nitrogen 13 mg/dL (9-16); Calcium 8.6 mg/dL (8.4-10.2); Carbon Dioxide 23 mmol/L (22-29); Chloride 105 mmol/L (96-108); Creatinine Clr Calc Pharmacy 98.8; Estimated Glomerular Filt Rate > 60; Glucose Random 125 mg/dL (60-115); Potassium 3.8 mmol/L (3.3-5.1); Sodium 136 mmol/L (135-145)
[2021-01-22] MEDS: KCl 20 mEq in 5 % Dextrose 20 MEQ/1,000 ML IV.SOLN 150 MEQ IVCONT (02:43)
[2021-01-22 02:51] LABS: Glucose, Whole Blood 141 mg/dL (60-115)
[2021-01-22 05:09] LABS: Glucose, Whole Blood 191 mg/dL (60-115)
[2021-01-22 05:18] LABS: VBG Base Excess -0.1 mmol/L; VBG HCO3 23 mmol/L (22-26); VBG pCO2 33 mmHg; VBG pH 7.44 (7.32-7.43); VBG pO2 57 mmHg
[2021-01-22 05:31] LABS: Venous Blood Gas Refer to POC result
[2021-01-22 06:12] LABS: Calcium 8.5 mg/dL (8.4-10.2); Phosphorus 2.1 mg/dL (2.7-4.5)
[2021-01-22 06:14] LABS: Anion Gap 12 (12-20); Blood Urea Nitrogen 11 mg/dL (9-16); Calcium 8.5 mg/dL (8.4-10.2); Carbon Dioxide 23 mmol/L (22-29); Chloride 104 mmol/L (96-108); Creatinine Clr Calc Pharmacy 101.7; Estimated Glomerular Filt Rate > 60; Glucose Random 176 mg/dL (60-115); Potassium 3.6 mmol/L (3.3-5.1); Sodium 135 mmol/L (135-145)
[2021-01-22 06:15] LABS: Prothrombin Time 11.6 SEC (10.8-13.0)
[2021-01-22] MEDS: Lactated Ringers 1,000 ML 80 ML IVCONT (06:25)
[2021-01-22 07:24] LABS: Glucose, Whole Blood 151 mg/dL (60-115)
--- NOTE | 2021-01-22 07:32 | PM.CCPN ---
Subjective Subjective Date of Service: 01/22/21 Interval History: 25-year-old type 1 diabetic noncompliance with insulin presents with mixed metabolic picture with positive anion gap metabolic acidosis due to ketoacidosis as well as metabolic alkalosis from vomiting and was placed on IV insulin and IV fluid and potassium replacement and current anion gap for the last 3 blood tests closed and within normal value of 12 serum bicarb 23 and electrolyte repleted now able to eat and has been converted to subcutaneous insulin Critical Care Time (minutes): 25 Physical Exam Vital Signs: Vital Signs: Last Vital Signs Temp 98.7 F 01/22/21 04:00 Pulse 93 01/22/21 07:00 Resp 24 H 01/22/21 07:00 BP 136/79 01/22/21 07:00 Pulse Ox 97 01/22/21 07:00 Body Mass Index 25.2 Const: Other: Awake alert oriented neurologically intact No neck vein distension and good bilateral carotid upstrokes and no gallops Abdomen Benign no organomegaly chest clear with no adventitious sounds Skin intact Objective Data Labs CBC & Chem 7: 01/22/21 05:11 01/22/21 05:11 Labs: Laboratory Results - last 24 hr 01/21/21 01/21/21 01/21/21 16:12 17:49 17:49 WBC RBC Hgb Hct MCV MCH MCHC RDW Plt Count MPV Immature Gran % (Auto) Neut % (Auto) Lymph % (Auto) [place] % (Auto) Eos % (Auto) Baso % (Auto) Lymph # (Auto) [place] # (Auto) Eos # (Auto) Baso # (Auto) Abs Immat Gran (auto) Absolute Neuts (auto) Absolute Nucleated RBC Nucleated RBC % (auto) PT INR APTT VBG pH VBG pCO2 VBG pO2 VBG HCO3 VBG O2 Saturation VBG Base Excess Sodium Potassium Chloride Carbon Dioxide Anion Gap BUN Creatinine Estim Creat Clear Calc Estimated GFR POC Glucose 425 H* Random Glucose Lactic Acid Lactic Acid Fup @ 2Hr Calcium Phosphorus Total Bilirubin AST ALT Alkaline Phosphatase Total Creatine Kinase Troponin I High Sens 5.6 Total Protein Albumin Lipase 6 L Urine Color Urine Appearance Urine pH Ur Specific [place] Urine Protein Urine Glucose (UA) Urine Ketones Urine Blood Urine Nitrite Ur Leukocyte Esterase Urine RBC Urine WBC Ur Squamous Epith Cells Urine Bacteria Urine Opiates Screen Ur Barbiturates Screen Ur Phencyclidine Scrn Ur Amphetamines Screen U Benzodiazepines Scrn Urine Cocaine Screen U Marijuana (THC) Screen Ethyl Alcohol Acetone, Qual Small H COVID-19 (EARLINE) COVID-19 Global Filmdemic 01/21/21 01/21/21 01/21/21 17:49 17:49 17:49 WBC 17.1 H RBC 6.02 H Hgb 17.5 Hct 50.4 MCV 83.7 MCH 29.1 MCHC 34.7 RDW 12.0 Plt Count 301 MPV 10.2 Immature Gran % (Auto) 0.4 Neut % (Auto) 86.3 H Lymph % (Auto) 6.3 L [place] % (Auto) 6.9 Eos % (Auto) 0.0 Baso % (Auto) 0.1 Lymph # (Auto) 1.1 L [place] # (Auto) 1.2 Eos # (Auto) 0.0 Baso # (Auto) 0.0 Abs Immat Gran (auto) 0.07 H Absolute Neuts (auto) 14.8 H Absolute Nucleated RBC 0.000 Nucleated RBC % (auto) 0.0 PT INR APTT VBG pH VBG pCO2 VBG pO2 VBG HCO3 VBG O2 Saturation VBG Base Excess Sodium 133 L Potassium 4.0 Chloride 91 L Carbon Dioxide 20 L Anion Gap 26 H BUN 18 H Creatinine 1.67 H Estim Creat Clear Calc 61.5 Estimated GFR 51 POC Glucose Random Glucose 372 H* Lactic Acid 2.5 H* Lactic Acid Fup @ 2Hr Calcium 10.8 H Phosphorus Total Bilirubin 1.2 H AST 11 ALT 10 Alkaline Phosphatase 89 Total Creatine Kinase 82 Troponin I High Sens Total Protein 8.4 H Albumin 5.2 H Lipase Urine Color Urine Appearance Urine pH Ur Specific [place] Urine Protein Urine Glucose (UA) Urine Ketones Urine Blood Urine Nitrite Ur Leukocyte Esterase Urine RBC Urine WBC Ur Squamous Epith Cells Urine Bacteria Urine Opiates Screen Ur Barbiturates Screen Ur Phencyclidine Scrn Ur Amphetamines Screen U Benzodiazepines Scrn Urine Cocaine Screen U Marijuana (THC) Screen Ethyl Alcohol Acetone, Qual COVID-19 (EARLINE) COVID-19 Global Filmdemic 01/21/21 01/21/21 01/21/21 17:49 17:50 17:50 WBC RBC Hgb Hct MCV MCH MCHC RDW Plt Count MPV Immature Gran % (Auto) Neut % (Auto) Lymph % (Auto) [place] % (Auto) Eos % (Auto) Baso % (Auto) Lymph # (Auto) [place] # (Auto) Eos # (Auto) Baso # (Auto) Abs Immat Gran (auto) Absolute Neuts (auto) Absolute Nucleated RBC Nucleated RBC % (auto) PT INR APTT VBG pH VBG pCO2 VBG pO2 VBG HCO3 VBG O2 Saturation VBG Base Excess Sodium Potassium Chloride Carbon Dioxide Anion Gap BUN Creatinine Estim Creat Clear Calc Estimated GFR POC Glucose Random Glucose Lactic Acid Lactic Acid Fup @ 2Hr Calcium Phosphorus Total Bilirubin AST ALT Alkaline Phosphatase Total Creatine Kinase Troponin I High Sens Total Protein Albumin Lipase Urine Color YELLOW Urine Appearance CLEAR Urine pH 6.0 Ur Specific [place] >= 1.030 H Urine Protein NEG Urine Glucose (UA) >=1000 H Urine Ketones >=80 Urine Blood NEG Urine Nitrite NEG Ur Leukocyte Esterase NEG Urine RBC 0-2 Urine WBC 0 Ur Squamous Epith Cells TRACE Urine Bacteria NONE Urine Opiates Screen Ur Barbiturates Screen Ur Phencyclidine Scrn Ur Amphetamines Screen U Benzodiazepines Scrn Urine Cocaine Screen U Marijuana (THC) Screen Ethyl Alcohol < 10 Acetone, Qual COVID-19 (EARLINE) Negative COVID-19 Clin Com See Note 01/21/21 01/21/21 01/21/21 17:50 17:59 18:08 WBC RBC Hgb Hct MCV MCH MCHC RDW Plt Count MPV Immature Gran % (Auto) Neut % (Auto) Lymph % (Auto) [place] % (Auto) Eos % (Auto) Baso % (Auto) Lymph # (Auto) [place] # (Auto) Eos # (Auto) Baso # (Auto) Abs Immat Gran (auto) Absolute Neuts (auto) Absolute Nucleated RBC Nucleated RBC % (auto) PT INR APTT VBG pH 7.38 VBG pCO2 32 VBG pO2 55 VBG HCO3 19 L VBG O2 Saturation 85.0 VBG Base Excess -4.1 Sodium Potassium Chloride Carbon Dioxide Anion Gap BUN Creatinine Estim Creat Clear Calc Estimated GFR POC Glucose 314 H Random Glucose Lactic Acid Lactic Acid Fup @ 2Hr Calcium Phosphorus Total Bilirubin AST ALT Alkaline Phosphatase Total Creatine Kinase Troponin I High Sens Total Protein Albumin Lipase Urine Color Urine Appearance Urine pH Ur Specific [place] Urine Protein Urine Glucose (UA) Urine Ketones Urine Blood Urine Nitrite Ur Leukocyte Esterase Urine RBC Urine WBC Ur Squamous Epith Cells Urine Bacteria Urine Opiates Screen Not Detected Ur Barbiturates Screen Not Detected Ur Phencyclidine Scrn Not Detected Ur Amphetamines Screen Not Detected U Benzodiazepines Scrn Not Detected Urine Cocaine Screen Not Detected U Marijuana (THC) Screen POSITIVE H Ethyl Alcohol Acetone, Qual COVID-19 (EARLINE) COVID-19 Global Filmdemic 01/21/21 01/21/21 01/21/21 18:56 19:58 21:02 WBC RBC Hgb Hct MCV MCH MCHC RDW Plt Count MPV Immature Gran % (Auto) Neut % (Auto) Lymph % (Auto) [place] % (Auto) Eos % (Auto) Baso % (Auto) Lymph # (Auto) [place] # (Auto) Eos # (Auto) Baso # (Auto) Abs Immat Gran (auto) Absolute Neuts (auto) Absolute Nucleated RBC Nucleated RBC % (auto) PT INR APTT VBG pH VBG pCO2 VBG pO2 VBG HCO3 VBG O2 Saturation VBG Base Excess Sodium Potassium Chloride Carbon Dioxide Anion Gap BUN Creatinine Estim Creat Clear Calc Estimated GFR POC Glucose 278 H 179 H 161 H Random Glucose Lactic Acid Lactic Acid Fup @ 2Hr Calcium Phosphorus Total Bilirubin AST ALT Alkaline Phosphatase Total Creatine Kinase Troponin I High Sens Total Protein Albumin Lipase Urine Color Urine Appearance Urine pH Ur Specific [place] Urine Protein Urine Glucose (UA) Urine Ketones Urine Blood Urine Nitrite Ur Leukocyte Esterase Urine RBC Urine WBC Ur Squamous Epith Cells Urine Bacteria Urine Opiates Screen Ur Barbiturates Screen Ur Phencyclidine Scrn Ur Amphetamines Screen U Benzodiazepines Scrn Urine Cocaine Screen U Marijuana (THC) Screen Ethyl Alcohol Acetone, Qual COVID-19 (EARLINE) COVID-19 Global Filmdemic 01/21/21 01/21/21 01/21/21 21:33 22:03 22:52 WBC RBC Hgb Hct MCV MCH MCHC RDW Plt Count MPV Immature Gran % (Auto) Neut % (Auto) Lymph % (Auto) [place] % (Auto) Eos % (Auto) Baso % (Auto) Lymph # (Auto) [place] # (Auto) Eos # (Auto) Baso # (Auto) Abs Immat Gran (auto) Absolute Neuts (auto) Absolute Nucleated RBC Nucleated RBC % (auto) PT INR APTT VBG pH 7.44 H VBG pCO2 33 VBG pO2 66 VBG HCO3 23 VBG O2 Saturation 92.0 VBG Base Excess -0.1 Sodium Potassium Chloride Carbon Dioxide Anion Gap BUN Creatinine Estim Creat Clear Calc Estimated GFR POC Glucose 136 H Random Glucose Lactic Acid Lactic Acid Fup @ 2Hr 1.4 Calcium Phosphorus Total Bilirubin AST ALT Alkaline Phosphatase Total Creatine Kinase Troponin I High Sens Total Protein Albumin Lipase Urine Color Urine Appearance Urine pH Ur Specific [place] Urine Protein Urine Glucose (UA) Urine Ketones Urine Blood Urine Nitrite Ur Leukocyte Esterase Urine RBC Urine WBC Ur Squamous Epith Cells Urine Bacteria Urine Opiates Screen Ur Barbiturates Screen Ur Phencyclidine Scrn Ur Amphetamines Screen U Benzodiazepines Scrn Urine Cocaine Screen U Marijuana (THC) Screen Ethyl Alcohol Acetone, Qual COVID-19 (EARLINE) COVID-19 Global Filmdemic 01/21/21 01/21/21 01/22/21 22:54 23:04 01:05 WBC RBC Hgb Hct MCV MCH MCHC RDW Plt Count MPV Immature Gran % (Auto) Neut % (Auto) Lymph % (Auto) [place] % (Auto) Eos % (Auto) Baso % (Auto) Lymph # (Auto) [place] # (Auto) Eos # (Auto) Baso # (Auto) Abs Immat Gran (auto) Absolute Neuts (auto) Absolute Nucleated RBC Nucleated RBC % (auto) PT INR APTT VBG pH VBG pCO2 VBG pO2 VBG HCO3 VBG O2 Saturation VBG Base Excess Sodium 136 Potassium 3.6 Chloride 103 Carbon Dioxide 23 Anion Gap 14 BUN 15 Creatinine 1.09 Estim Creat Clear Calc 94.3 Estimated GFR > 60 POC Glucose 144 H 121 H Random Glucose 144 H D Lactic Acid Lactic Acid Fup @ 2Hr Calcium 8.7 D Phosphorus Total Bilirubin AST ALT Alkaline Phosphatase Total Creatine Kinase Troponin I High Sens Total Protein Albumin Lipase Urine Color Urine Appearance Urine pH Ur Specific [place] Urine Protein Urine Glucose (UA) Urine Ketones Urine Blood Urine Nitrite Ur Leukocyte Esterase Urine RBC Urine WBC Ur Squamous Epith Cells Urine Bacteria Urine Opiates Screen Ur Barbiturates Screen Ur Phencyclidine Scrn Ur Amphetamines Screen U Benzodiazepines Scrn Urine Cocaine Screen U Marijuana (THC) Screen Ethyl Alcohol Acetone, Qual COVID-19 (EARLINE) COVID-19 Global Filmdemic 01/22/21 01/22/21 01/22/21 01:57 02:46 05:05 WBC RBC Hgb Hct MCV MCH MCHC RDW Plt Count MPV Immature Gran % (Auto) Neut % (Auto) Lymph % (Auto) [place] % (Auto) Eos % (Auto) Baso % (Auto) Lymph # (Auto) [place] # (Auto) Eos # (Auto) Baso # (Auto) Abs Immat Gran (auto) Absolute Neuts (auto) Absolute Nucleated RBC Nucleated RBC % (auto) PT INR APTT VBG pH VBG pCO2 VBG pO2 VBG HCO3 VBG O2 Saturation VBG Base Excess Sodium 136 Potassium 3.8 Chloride 105 Carbon Dioxide 23 Anion Gap 12 BUN 13 Creatinine 1.04 Estim Creat Clear Calc 98.8 Estimated GFR > 60 POC Glucose 141 H 191 H Random Glucose 125 H Lactic Acid Lactic Acid Fup @ 2Hr Calcium 8.6 Phosphorus Total Bilirubin AST ALT Alkaline Phosphatase Total Creatine Kinase Troponin I High Sens Total Protein Albumin Lipase Urine Color Urine Appearance Urine pH Ur Specific [place] Urine Protein Urine Glucose (UA) Urine Ketones Urine Blood Urine Nitrite Ur Leukocyte Esterase Urine RBC Urine WBC Ur Squamous Epith Cells Urine Bacteria Urine Opiates Screen Ur Barbiturates Screen Ur Phencyclidine Scrn Ur Amphetamines Screen U Benzodiazepines Scrn Urine Cocaine Screen U Marijuana (THC) Screen Ethyl Alcohol Acetone, Qual COVID-19 (EARLINE) COVID-19 Clin Com 01/22/21 01/22/21 01/22/21 05:11 05:11 05:11 WBC 11.0 H RBC 5.17 Hgb 14.7 Hct 43.7 MCV 84.5 MCH 28.4 MCHC 33.6 RDW 11.9 Plt Count 245 MPV 10.3 Immature Gran % (Auto) 0.4 Neut % (Auto) 73.7 H Lymph % (Auto) 13.8 L [place] % (Auto) 11.5 H Eos % (Auto) 0.3 Baso % (Auto) 0.3 Lymph # (Auto) 1.5 [place] # (Auto) 1.3 H Eos # (Auto) 0.0 Baso # (Auto) 0.0 Abs Immat Gran (auto) 0.04 H Absolute Neuts (auto) 8.1 Absolute Nucleated RBC 0.000 Nucleated RBC % (auto) 0.0 PT 11.6 INR 1.0 APTT 31.0 VBG pH VBG pCO2 VBG pO2 VBG HCO3 VBG O2 Saturation VBG Base Excess Sodium 135 Potassium 3.6 Chloride 104 Carbon Dioxide 23 Anion Gap 12 BUN 11 Creatinine 1.01 Estim Creat Clear Calc 101.7 Estimated GFR > 60 POC Glucose Random Glucose 176 H D Lactic Acid Lactic Acid Fup @ 2Hr Calcium 8.5 Phosphorus Total Bilirubin AST ALT Alkaline Phosphatase Total Creatine Kinase Troponin I High Sens Total Protein Albumin Lipase Urine Color Urine Appearance Urine pH Ur Specific [place] Urine Protein Urine Glucose (UA) Urine Ketones Urine Blood Urine Nitrite Ur Leukocyte Esterase Urine RBC Urine WBC Ur Squamous Epith Cells Urine Bacteria Urine Opiates Screen Ur Barbiturates Screen Ur Phencyclidine Scrn Ur Amphetamines Screen U Benzodiazepines Scrn Urine Cocaine Screen U Marijuana (THC) Screen Ethyl Alcohol Acetone, Qual COVID-19 (EARLINE) COVID-19 Global Filmdemic 01/22/21 01/22/21 01/22/21 05:11 05:11 07:18 WBC RBC Hgb Hct MCV MCH MCHC RDW Plt Count MPV Immature Gran % (Auto) Neut % (Auto) Lymph % (Auto) [place] % (Auto) Eos % (Auto) Baso % (Auto) Lymph # (Auto) [place] # (Auto) Eos # (Auto) Baso # (Auto) Abs Immat Gran (auto) Absolute Neuts (auto) Absolute Nucleated RBC Nucleated RBC % (auto) PT INR APTT VBG pH 7.44 H VBG pCO2 33 VBG pO2 57 VBG HCO3 23 VBG O2 Saturation 89.0 VBG Base Excess -0.1 Sodium Potassium Chloride Carbon Dioxide Anion Gap BUN Creatinine Estim Creat Clear Calc Estimated GFR POC Glucose 151 H Random Glucose Lactic Acid Lactic Acid Fup @ 2Hr Calcium 8.5 Phosphorus 2.1 L Total Bilirubin AST ALT Alkaline Phosphatase Total Creatine Kinase Troponin I High Sens Total Protein Albumin Lipase Urine Color Urine Appearance Urine pH Ur Specific [place] Urine Protein Urine Glucose (UA) Urine Ketones Urine Blood Urine Nitrite Ur Leukocyte Esterase Urine RBC Urine WBC Ur Squamous Epith Cells Urine Bacteria Urine Opiates Screen Ur Barbiturates Screen Ur Phencyclidine Scrn Ur Amphetamines Screen U Benzodiazepines Scrn Urine Cocaine Screen U Marijuana (THC) Screen Ethyl Alcohol Acetone, Qual COVID-19 (EARLINE) COVID-19 Clin Com Progress Note: A&P Assessment and plan (1) GISSELLE (acute kidney injury): Status: Acute (2) Metabolic alkalosis: Status: Acute (3) Diabetic keto-acidosis: Status: Acute (4) Abdominal pain: Status: Acute (5) Vomiting: Status: Acute Assessment and Plan: Volume and electrolyte repleted with resolution of mixed metabolic acid-base abnormality and currently on subcutaneous insulin and diet and just needs final dosing and possible case management to help with insulin compliance Quality Stroke Does the patient have a stroke diagnosis?: No VTE Prior VTE?: No VTE Risk Level:: Medical - low VTE Device Contraindication: Treatment Not Indicated VTE Drug Contraindication: Treatment Not Indicated
[2021-01-22] MEDS: Insulin Glargine,Hum.rec.anlog 100 UNIT/ML 10 ML VIAL 20 UNIT SUBCUT (08:35)
[2021-01-22 11:16] LABS: Glucose, Whole Blood 249 mg/dL (60-115)
[2021-01-22] MEDS: Insulin Lispro 100 UNIT/ML 3 ML VIAL SUBCUT ×3 (12:13→21:05)
[2021-01-22] MEDS: Famotidine 20 MG TABLET PO (12:14)
[2021-01-22] MEDS: Metoclopramide HCl 10 MG/2 ML VIAL 5 MG IVPUSH (12:53)
[2021-01-22 14:14] LABS: Glucose, Whole Blood 234 mg/dL (60-115)
--- NOTE | 2021-01-22 15:30 | MHC.CLN ---
RE: CONSULT SEE TEACHING RECORD FOR DM TEACHING
[2021-01-22 16:14] LABS: Glucose, Whole Blood 214 mg/dL (60-115)
--- NOTE | 2021-01-22 16:41 | PC.NURSE ---
S/E Afebrile, A&O X4 SR-ST 110's w/ activity PRN angios patent LS clear throughout, on RA Insulin gtt discontinued @ 0625 - switched to Lantus & Humalog SS POC 150-250 C/O consistent 03/17 lower abdominal pain - MD aware - no new orders C/O nausea - x1 episode yellow emises 200cc - IV reglan administered w/ good effect Poor PO intake - >25% breakfast & lunch Educated patient on medication & diet compliance - patient verbalizes understanding Refused Lunchroom Attendant consult No BM Reports multiple voids in Urinal No skin integrity concerns Transferred to M/S status Family updated
[2021-01-22] MEDS: Metoclopramide HCl 5 MG TABLET PO (19:23)
[2021-01-22 20:01] LABS: Glucose, Whole Blood 224 mg/dL (60-115)
[2021-01-23 03:21] VITALS: BP 146/96; PULSE 100; RESP 19; TEMP 36.9; O2SAT 100
[2021-01-23] MEDS: Metoclopramide HCl 5 MG TABLET PO (05:21)
[2021-01-23 07:20] VITALS: BP 131/79; PULSE 75; RESP 18; TEMP 36.7; O2SAT 95
[2021-01-23 07:26] LABS: Glucose, Whole Blood 217 mg/dL (60-115)
[2021-01-23] MEDS: Insulin Lispro 100 UNIT/ML 3 ML VIAL SUBCUT ×2 (07:47→11:50)
[2021-01-23] MEDS: Insulin Glargine,Hum.rec.anlog 100 UNIT/ML 10 ML VIAL 20 UNIT SUBCUT (07:47)
[2021-01-23 08:00] VITALS: BMI 23.8
[2021-01-23 11:25] VITALS: BP 136/93; PULSE 90; RESP 18; TEMP 37.2; O2SAT 97
[2021-01-23 11:31] LABS: Glucose, Whole Blood 181 mg/dL (60-115)
--- NOTE | 2021-01-23 12:09 | PM.DS ---
DS: Providers Provider Date of Service: 01/23/21 Date of admission: 01/21/21 20:14 Primary care physician: Papi Olivo MD DS: Diagnosis Discharge Diagnosis (1) GISSELLE (acute kidney injury): Status: Acute (2) Metabolic alkalosis: Status: Acute (3) Diabetic keto-acidosis: Status: Acute (4) Abdominal pain: Status: Acute (5) Vomiting: Status: Acute DS: Medications Discharge Medications Home Medications: Previous Rx's Medication Instructions Recorded Humalog Mix 75-25(U-100)Insuln 40 unit SUBCUT DAILY 30 Days #0 ml 01/23/21 Humalog Mix 75-25(U-100)Insuln 45 unit SUBCUT QPM 30 Days #0 ml 01/23/21 omeprazole 20 mg PO DAILY #30 cap 01/23/21 DS: Summary Hospital Course Hospital Course: History of presenting illness Chief Complaint: vomiting Patient is a 25-year-old male past medical history type 1 diabetes and gastroparesis who comes in after vomiting x2 days. Patient states he last took his Humalog/NovoLog mix insuiln this morning. He states he has not eaten any food in 24 hours and has just been vomiting. He also admits to diffuse abdominal pain, increased thirst and increased urination. Denies any fevers chills diarrhea. He states he was just hospitalized for DKA at [facility] a few weeks ago. His mother and his aunt are here with him today, his mom states that he is very noncompliant with his medications and his sleep schedule will is always different so he does not take his medications in a timely fashion nor does he give himself insulin when he eats. labs significant for WBC 17.1 likely 2/2 vomiting, pt is not septic, Na 133, K 4, Cl 91, serum bicarb 20, AG 26, BUN 18, Cr 1.67, bg 372 upon arrival to ED, acetone small, vbg hco3 19, marijuana positive, CXR neg, COVID neg Patient will be admitted to the ICU for DKA, mixed metabolic picture of DKA and met alk 2/2 vomiting. Hospital course 25-year-old gentleman with past medical history of type 1 diabetes mellitus, gastroparesis and history of marijuana use Admitted to ICU for DKA, acute renal injury and electrolyte abnormality patient treated with IV fluids, and insulin drip, his electrolytes and blood sugars improved, therefore patient was downgraded to medical floor, for nausea and gastroparesis he was treated with Reglan with good effect since patient is hemodynamically stable he is being discharged home and recommended to have outpatient follow-up with endocrinology as [facility] he has an appointment on 01/27, he missed his appointment this morning since he was in hospital. He is being discharged home on his home medications Humalog 7525 b.i.d. and Prilosec and diabetic diet. Time Spent with Patient Time attestation: Total time spent providing and/or coordinating discharge services: Discharge coordination time: Greater than 30 minutes Quality: Stroke Does the patient have a stroke diagnosis?: No Physical Exam Vital Signs: Vital Signs: Last Vital Signs Temp 98.9 F 01/23/21 11:25 Pulse 90 01/23/21 11:25 Resp 18 01/23/21 11:25 BP 136/93 H 01/23/21 11:25 Pulse Ox 97 01/23/21 11:25 Body Mass Index 23.8 General resting comfortably in no acute distress. Neck supple CVS regular rate rhythm, Respiratory lungs clear to auscultation, no respiratory distress, no wheeze, no rhonchi. Gastrointestinal abdomen soft, nontender, bowel sounds audible, no guarding , no rigidity. Extremities no edema. Neuro nonfocal Skin no rash DS: Data Data Completed and Pending Labs on day of discharge: Laboratory Results - last 24 hr 01/22/21 01/22/21 01/22/21 14:09 16:10 19:55 POC Glucose 234 H 214 H 224 H Magnesium 01/23/21 01/23/21 01/23/21 06:13 07:20 11:25 POC Glucose 217 H 181 H Magnesium 2.0 Discharge Plan Discharge Patient Disposition: Home, Self-Care Discharge Diagnosis: DKA Acute kidney injury Referrals: Papi Olivo MD [Primary Care Provider] - 1 Week Discharge Medications: New omeprazole 20 mg capsule,delayed release(DR/EC) 20 mg PO DAILY Qty: 30 RF: 0 Continued Humalog Mix 75-25(U-100)Insuln 100 unit/mL (75-25) suspension 45 unit subcut QPM 30 Days Qty: 0 RF: 0 Humalog Mix 75-25(U-100)Insuln 100 unit/mL (75-25) suspension 40 unit subcut DAILY 30 Days Qty: 0 RF: 0 Discharge Orders: Discharge Order (Routine); Ordered 01/23/21 Ordered By: Azalea Barney Diet: diabetic diet Activity on Discharge: As tolerated Stand Alone Forms: Patient Portal Discharge page, Work/School Release Care Plan Goals: DKA due to noncompliance with medications strongly recommend to take home insulin and follow diabetic diet and outpatient follow-up with endocrinology at [facility] next week to adjust insulin dosage for better blood sugar control Health Concerns: Take small frequent meals and avoid use of marijuana that can cause cyclic vomiting Plan of Treatment: Outpatient follow-up with primary care physician in 1 week and endocrinology next week Assessment: as above
--- NOTE | 2021-01-23 12:14 | MHC.CM.PN ---
PATIENT IS DISCHARGED HOME WITH NO NEED FOR SERVICES FAMILY TO TRANSPORT.
--- NOTE | 2021-01-23 17:51 | PC.NURSE ---
1100- Pt refused breakfast and lunch due to not liking the hospital food . Pt given insulin per EMAR. Pt offered juice and jayant chris, crackers, and fruit cup. Per patient fruit cup upset his stomach. Able to tolerate crackers. Dr. Barney made aware. Patient said he doesn't feel good due to not eating. Per patient, if discharged will eat no problem . No other complaints at this time.
== END 2021-01-23 12:45 | disposition home or self-care (01) | DRG 420 ==
LOC: HO.ED 19:39 → HO.EDOVER 20:20 → HO.ICU 20:34 → HO.S3 01-22 18:00
PROVIDERS: Admitting Provider Physician Assistant; Emergency Provider Emergency Medicine Emergency Medical Services; PCP Internal Medicine; Visit Provider Physician Assistant
DX: E10.10 Type 1 diabetes mellitus with ketoacidosis without coma (principal); N17.9 Acute kidney failure, unspecified; E87.3 Alkalosis; Z20.822 Contact with and (suspected) exposure to COVID-19; E86.0 Dehydration; Z79.4 Long term (current) use of insulin
CPT/HCPCS: 36415; 71045; 80048; 80053; 80307; 81001; 82009; 82077; 82310; 82550; 82947; 83605; 83690; 83735; 84100; 84484; 85025; 85610; 85730; 87635; 93005; 99284; J1885; J2060; J2405; J2765

== ENCOUNTER 2021-01-23 20:39 | Emergency (ER) | payer OTHER, SELFPAY ==
--- NOTE | ~2021-01-23 | XR_ITS ---
EXAMINATION: XR ABDOMEN KUB CLINICAL INDICATION: Abdominal pain COMPARISON: CT abdomen pelvis dated 02/23/2019 TECHNIQUE: 2 views of the abdomen. FINDINGS: The bowel gas pattern is normal with no evidence of ileus or obstruction. No unusual soft tissue calcifications are noted. The bones are unremarkable. XR/XR KUB IMPRESSION: Unremarkable examination.
[2021-01-23 20:54] VITALS: BP 140/95; PULSE 93; RESP 18; TEMP 36.8; O2SAT 98; BMI 24.2
[2021-01-23 22:45] VITALS: BP 145/91; PULSE 66; RESP 18; O2SAT 100
[2021-01-23 23:14] LABS: Basophils Percent Auto 0.2 % (0-2); Eosinophils Percent Auto 0.2 % (0-4); Hematocrit 46.1 % (42-52); Hemoglobin 15.8 g/dl (14.0-18.0); Imm Gran Abs Auto 0.02 X10*3/uL (0.00-0.03); Imm Gran Pct Auto 0.2 % (0.0-0.4); Lymphocytes Absolute Auto 1.5 X10*3/uL (1.2-4.9); Lymphocytes Percent Auto 17.3 % (20-40); MANUAL DIFF FLAG NO; Mean Corpuscular HGB Conc 34.3 g/dl (31.0-36.0); Mean Corpuscular Volume 84.7 fL (80-98); Mean Platelet Volume 9.5 fL (9.4-12.4); Monocytes Absolute Auto 1.2 X10*3/uL (0.1-1.2); Monocytes Percent Auto 13.6 % (2-11); Neutrophils Absolute Auto 5.9 X10*3/uL (2.0-8.3); Neutrophils Percent Auto 68.5 % (45-73); Platelet Count 237 X10*3/uL (160-400); Red Blood Count 5.44 X10*6/uL (4.60-5.80); White Blood Count 8.6 X10*3/uL (4.8-10.8)
[2021-01-23 23:40] LABS: Lipase 4 U/L (8-78)
[2021-01-23 23:41] LABS: Alanine Aminotransferase 6 U/L (0-40); Albumin Level 4.2 g/dL (3.5-5.0); Alkaline Phosphatase 67 U/L (39-117); Anion Gap 16 (12-20); Aspartate Amino Transferase 11 U/L (5-37); Bilirubin Total 0.7 mg/dL (0.0-1.0); Blood Urea Nitrogen 9 mg/dL (9-16); Calcium 9.4 mg/dL (8.4-10.2); Carbon Dioxide 28 mmol/L (22-29); Chloride 100 mmol/L (96-108); Creatinine Clr Calc Pharmacy 101.7; Estimated Glomerular Filt Rate > 60; Glucose Random 109 mg/dL (60-115); Potassium 3.5 mmol/L (3.3-5.1); Sodium 140 mmol/L (135-145); Total Protein 6.7 g/dL (6.5-8.0)
--- NOTE | 2021-01-24 00:21 | ED_ITS ---
HPI - Abdominal Pain General Chief Complaint: Abdominal Pain Stated Complaint: abdominal pain Time Seen by Provider: 01/24/21 00:21 Source: patient Mode of arrival: ambulatory History of Present Illness HPI narrative: 25-year-old male who presents after having been discharged earlier today and states that he has continued to have nausea and vomiting as well as abdominal discomfort with chills but denies any fevers. Otherwise, he denies any sore throat, cough, urinary pain/burning/frequency and states that his glucose has been well maintained since his discharge. Related Data Previous Rx's Medication Instructions Recorded Humalog Mix 75-25(U-100)Insuln 40 unit SUBCUT DAILY 30 Days #0 ml 01/23/21 Humalog Mix 75-25(U-100)Insuln 45 unit SUBCUT QPM 30 Days #0 ml 01/23/21 omeprazole 20 mg PO DAILY #30 cap 01/23/21 ondansetron HCl [Zofran] 4 mg PO Q8H PRN #4 tab 01/24/21 Allergies Allergy/AdvReac Type Severity Reaction Status Date / Time passion fruit [PASSION FRUIT] Allergy Unknown UNK Verified 01/21/21 16:13 Review of Systems Review of Systems Pertinent positives and negatives as stated in HPI 10 point review of systems is otherwise negative. Physical Exam Vital Signs: Vital Signs: Last Vital Signs Temp 98.2 F 01/23/21 20:54 Pulse 66 01/24/21 02:00 Resp 16 01/24/21 02:00 BP 145/91 H 01/24/21 02:00 Pulse Ox 100 01/23/21 22:45 Body Mass Index 24.2 VITAL SIGNS: Reviewed. GENERAL: Well developed, well nourished, in no acute distress. HEAD: Normocephalic/atraumatic EYES: PERRLA, EOMI OROPHARYNX: no oral lesions noted, posterior pharynx clear NECK: Supple, no adenopathy LUNGS: Normal breath sounds. No adventitious sounds or accessory muscle use. SpO2<100> CARDIOVASCULAR: Regular rate and rhythm without noted murmurs ABDOMEN: Soft, mild tenderness without rebound, non-distended with bowel sounds. NEUROLOGIC: Alert and oriented x 4. Strength and sensation to light touch were grossly intact x 4. Course Course Course Narrative: 25-year-old male with history and clinical presentation consistent with dehydration in abdominal discomfort of unclear etiology but will rule out pancreatitis, UTI. Review of all investigations negative for evidence to suggest DKA, patient was IV fluid resuscitated and provided with antiemetics and on re-evaluation reports significant improvement and feeling better. P.o. challenge was completed with success and patient was discharged home in stable condition with recommendations to follow-up with his PCP. MDM - Abdominal Pain Lab Data Result diagrams: 01/23/21 23:08 01/23/21 23:08 Labs: Lab Results 01/23/21 01/23/21 01/23/21 Range/Units 23:08 23:08 23:08 WBC 8.6 (4.8-10.8) X10*3/uL RBC 5.44 (4.60-5.80) X10*6/uL Hgb 15.8 (14.0-18.0) g/dl Hct 46.1 (42-52) % MCV 84.7 (80-98) fL MCH 29.0 (27.0-33.0) pg MCHC 34.3 (31.0-36.0) g/dl RDW 12.0 (11.0-16.0) % Plt Count 237 (160-400) X10*3/uL MPV 9.5 (9.4-12.4) fL Immature Gran % (Auto) 0.2 (0.0-0.4) % Neut % (Auto) 68.5 (45-73) % Lymph % (Auto) 17.3 L (20-40) % [place] % (Auto) 13.6 H (2-11) % Eos % (Auto) 0.2 (0-4) % Baso % (Auto) 0.2 (0-2) % Lymph # (Auto) 1.5 (1.2-4.9) X10*3/uL [place] # (Auto) 1.2 (0.1-1.2) X10*3/uL Eos # (Auto) 0.0 (0.0-0.4) X10*3/uL Baso # (Auto) 0.0 (0.0-0.2) X10*3/uL Abs Immat Gran (auto) 0.02 (0.00-0.03) X10*3/uL Absolute Neuts (auto) 5.9 (2.0-8.3) X10*3/uL Absolute Nucleated RBC 0.000 (0.0-0.012) X10*3/uL Nucleated RBC % (auto) 0.0 (0.0-0.2) /100WBC Sodium 140 (135-145) mmol/L Potassium 3.5 (3.3-5.1) mmol/L Chloride 100 (96-108) mmol/L Carbon Dioxide 28 (22-29) mmol/L Anion Gap 16 (12-20) BUN 9 (9-16) mg/dL Creatinine 1.01 (0.5-1.4) mg/dL Estim Creat Clear Calc 101.7 Estimated GFR > 60 Random Glucose 109 D (60-115) mg/dL Calcium 9.4 D (8.4-10.2) mg/dL Total Bilirubin 0.7 (0.0-1.0) mg/dL AST 11 (5-37) U/L ALT 6 (0-40) U/L Alkaline Phosphatase 67 D (39-117) U/L Total Protein 6.7 D (6.5-8.0) g/dL Albumin 4.2 (3.5-5.0) g/dL Lipase 4 L (8-78) U/L Acetone, Qual Small H (Negative) Discharge Plan Discharge Clinical Impression: Vomiting, Dehydration Patient Disposition: Home, Self-Care Instructions: Dehydration (ED) Additional Instructions: 1. Please resume all home medications as prescribed. 2. For the next 24 hours please take Zofran (ondansetron) every 8 hours to help you continue to drink plenty of water. 3. Please follow-up with your primary care provider in the next 2-3 days for re- evaluation. Return to the ER for any acute worsening of your symptoms. Prescriptions: New ondansetron HCl [Zofran] 4 mg tablet 4 mg PO Q8H PRN (Reason: nausea and vomiting) Qty: 4 RF: 0 No Action omeprazole 20 mg capsule,delayed release(DR/EC) 20 mg PO DAILY Qty: 30 RF: 0 Humalog Mix 75-25(U-100)Insuln 100 unit/mL (75-25) suspension 45 unit subcut QPM 30 Days Qty: 0 RF: 0 Humalog Mix 75-25(U-100)Insuln 100 unit/mL (75-25) suspension 40 unit subcut DAILY 30 Days Qty: 0 RF: 0 Referrals: Physician,Unknown [Primary Care Provider] - 2 days PMFSH Past Medical History Source: nursing notes reviewed Medical History Diabetes Gastroparesis Social History Social History Household Members: None Housing: Apartment Do you presently have visiting nurse or other home services: No Patient Tobacco Use Status: Never used Tobacco Substance Use Type: Marijuana Advance Directives: Yes Advance Directives on File: Yes Advance Directives Date on File: 01/22/21 service: No Current occupational status: employed
[2021-01-24] MEDS: ondansetron HCL 4 MG/2 ML VIAL IVPUSH (01:18)
[2021-01-24 02:00] VITALS: BP 145/91; PULSE 66; RESP 16
[2021-01-24] MEDS: Ketorolac Tromethamine 15 MG/ML VIAL IVPUSH (02:50)
[2021-01-24] MEDS: Metoclopramide HCl 10 MG/2 ML VIAL IVPUSH (02:50)
[2021-01-24] MEDS: 0.9 % Sodium Chloride 1,000 ML 999 ML IV (02:51)
[2021-01-24] MEDS: diphenhydrAMINE HCL 50 MG/ML VIAL 25 MG IVPUSH (02:51)
[2021-01-24 02:52] LABS: Acetone, serum QL Small (Negative)
--- NOTE | 2021-01-24 02:59 | PC.NURSE ---
PT CONTINUES TO C/O ABD PAIN AND NAUSEA. PT MEDICATED PER EMAR. NS UP AND RUNNING W/O SITE INTACT. WARM BLK TO PT. WILL CONTINUE TO MONITOR PT.
== END 2021-01-24 04:29 | disposition home or self-care (01) ==
PROVIDERS: Emergency Provider Student in an Organized Health Care Education/Training Program
DX: E86.0 Dehydration (principal); R11.10 Vomiting, unspecified; E11.9 Type 2 diabetes mellitus without complications; Z79.4 Long term (current) use of insulin
CPT/HCPCS: 36415; 74018; 80053; 82009; 83690; 85025; 96361; 96374; 96375; 99284; J1200; J1885; J2405; J2765

== ENCOUNTER 2021-04-02 23:49 | Emergency (ER) | payer OTHER, SELFPAY ==
--- NOTE | ~2021-04-02 | XR_ITS ---
EXAMINATION: XR CHEST CLINICAL INFORMATION: Cough COMPARISON: 01/21/2021 TECHNIQUE: Frontal view of the chest was obtained. FINDINGS: The lungs are clear with no focal consolidation. No evidence of pneumothorax, pulmonary edema, or pleural effusions. The cardiomediastinal silhouette is unremarkable. No acute osseous findings. XR/XR chest 1V IMPRESSION: No acute cardiopulmonary findings.
[2021-04-03 00:03] VITALS: BP 157/103; PULSE 97; RESP 16; TEMP 36.3; O2SAT 99; BMI 24.2
--- NOTE | 2021-04-03 00:47 | ED_ITS ---
HPI - Nausea/Vomiting/Diarrhea General Chief complaint: Nausea/Vomiting/Diarrhea Stated complaint: DKA Time Seen by Provider: 04/03/21 00:46 Source: patient Mode of arrival: ambulatory History of Present Illness HPI Narrative: 25-year-old male with history diabetes presents with nausea, vomiting, fatigue in stating that he feels like ?crap?. Patient states that he signed out against medical advice last night after being treated for DKA. He states he has chills but denies any fevers and otherwise denies shortness of breath, chest pain/palpitations, urinary symptoms. Patient states he has not received his COVID-19 vaccination. Related Data Home Medications Medication Instructions Recorded Confirmed insulin lispro protamine-lispro 45 unit SUBCUT BID 04/03/21 04/03/21 100 unit/mL (75-25) subcutaneous susp (Humalog Mix 75-25(U-100)Insuln) Allergies Allergy/AdvReac Type Severity Reaction Status Date / Time passion fruit [PASSION FRUIT] Allergy Unknown UNK Verified 04/03/21 01:19 Review of Systems Review of Systems: Pertinent positives and negatives as stated in HPI 10 point review of systems is otherwise negative. PMFSH Past Medical History Medical History Diabetes Gastroparesis Social History Social History Household Members: None Housing: Apartment Do you presently have visiting nurse or other home services: No Patient Tobacco Use Status: Never used Tobacco Substance Use Type: Marijuana Advance Directives: Yes Advance Directives on File: Yes Advance Directives Date on File: 01/22/21 service: No Current occupational status: employed Physical Exam Vital Signs: Vital Signs: Last Vital Signs Temp 99.3 F 04/03/21 03:17 Pulse 69 04/03/21 03:17 Resp 15 04/03/21 03:17 BP 132/88 04/03/21 03:17 Pulse Ox 100 04/03/21 03:17 Body Mass Index 24.2 VITAL SIGNS: Reviewed. GENERAL: Well developed, well nourished, in no acute distress. HEAD: Normocephalic/atraumatic EYES: PERRLA, EOMI OROPHARYNX: no oral lesions noted, posterior pharynx clear LUNGS: Normal breath sounds, no tachypnea,no adventitious sounds or accessory muscle use. SpO2<100> CARDIOVASCULAR: Regular rate and rhythm without noted murmurs ABDOMEN: Soft, non-tender, non-distended with bowel sounds. SKIN: Inspection of the skin reveals no rashes NEUROLOGIC: Alert and oriented x 4. Course Course Course Narrative: 25-year-old male with history and clinical presentation concerning for possible DKA/HHS on initial evaluation, but point of care was noted to be 78 and then received results of COVID-19 positivity. Review of the remaining investigations are without acute findings to suggest DKA, infection, HHS. Patient is clearly experiencing viral syndrome, however received 3 L of IV fluid and is currently tolerating oral intake. Patient otherwise discharged home with strict instructions to quarantine for the next 14 days. MDM - Nausea/Vomiting/Diarrhea Lab Data Result diagrams: 04/03/21 01:04 04/03/21 01:04 Labs: Lab Results 04/03/21 04/03/21 04/03/21 Range/Units 01:01 01:04 01:04 WBC 8.1 (4.8-10.8) X10*3/uL RBC 5.75 (4.60-5.80) X10*6/uL Hgb 16.7 (14.0-18.0) g/dl Hct 49.2 (42-52) % MCV 85.6 (80-98) fL MCH 29.0 (27.0-33.0) pg MCHC 33.9 (31.0-36.0) g/dl RDW 12.0 (11.0-16.0) % Plt Count 277 (160-400) X10*3/uL MPV 10.0 (9.4-12.4) fL Immature Gran % (Auto) 0.2 (0.0-0.4) % Neut % (Auto) 62.6 (45-73) % Lymph % (Auto) 22.2 (20-40) % [place] % (Auto) 14.4 H (2-11) % Eos % (Auto) 0.2 (0-4) % Baso % (Auto) 0.4 (0-2) % Lymph # (Auto) 1.8 (1.2-4.9) X10*3/uL [place] # (Auto) 1.2 (0.1-1.2) X10*3/uL Eos # (Auto) 0.0 (0.0-0.4) X10*3/uL Baso # (Auto) 0.0 (0.0-0.2) X10*3/uL Abs Immat Gran (auto) 0.02 (0.00-0.03) X10*3/uL Absolute Neuts (auto) 5.1 (2.0-8.3) X10*3/uL Absolute Nucleated RBC 0.000 (0.0-0.012) X10*3/uL Nucleated RBC % (auto) 0.0 (0.0-0.2) /100WBC Sodium 139 (135-145) mmol/L Potassium 3.6 (3.3-5.1) mmol/L Chloride 100 (96-108) mmol/L Carbon Dioxide 28 (22-29) mmol/L Anion Gap 15 (12-20) BUN 10 (9-16) mg/dL Creatinine 1.05 (0.5-1.4) mg/dL Estim Creat Clear Calc 97.8 Estimated GFR > 60 POC Glucose 78 (60-115) mg/dL Random Glucose 74 (60-115) mg/dL Lactic Acid (0.5-2.0) mmol/L Calcium 9.9 (8.4-10.2) mg/dL Magnesium 2.4 (1.6-2.6) mg/dL Total Bilirubin 0.9 (0.0-1.0) mg/dL AST 10 (5-37) U/L ALT 11 (0-40) U/L Alkaline Phosphatase 73 (39-117) U/L Total Protein 7.5 (6.5-8.0) g/dL Albumin 4.6 (3.5-5.0) g/dL Lipase 8 (8-78) U/L Acetone, Qual Negative (Negative) COVID-19 (EARLINE) (Negative) COVID-19 Clin Com 04/03/21 04/03/21 04/03/21 Range/Units 01:04 01:05 03:24 WBC (4.8-10.8) X10*3/uL RBC (4.60-5.80) X10*6/uL Hgb (14.0-18.0) g/dl Hct (42-52) % MCV (80-98) fL MCH (27.0-33.0) pg MCHC (31.0-36.0) g/dl RDW (11.0-16.0) % Plt Count (160-400) X10*3/uL MPV (9.4-12.4) fL Immature Gran % (Auto) (0.0-0.4) % Neut % (Auto) (45-73) % Lymph % (Auto) (20-40) % [place] % (Auto) (2-11) % Eos % (Auto) (0-4) % Baso % (Auto) (0-2) % Lymph # (Auto) (1.2-4.9) X10*3/uL [place] # (Auto) (0.1-1.2) X10*3/uL Eos # (Auto) (0.0-0.4) X10*3/uL Baso # (Auto) (0.0-0.2) X10*3/uL Abs Immat Gran (auto) (0.00-0.03) X10*3/uL Absolute Neuts (auto) (2.0-8.3) X10*3/uL Absolute Nucleated RBC (0.0-0.012) X10*3/uL Nucleated RBC % (auto) (0.0-0.2) /100WBC Sodium (135-145) mmol/L Potassium (3.3-5.1) mmol/L Chloride (96-108) mmol/L Carbon Dioxide (22-29) mmol/L Anion Gap (12-20) BUN (9-16) mg/dL Creatinine (0.5-1.4) mg/dL Estim Creat Clear Calc Estimated GFR POC Glucose 88 (60-115) mg/dL Random Glucose (60-115) mg/dL Lactic Acid 1.1 (0.5-2.0) mmol/L Calcium (8.4-10.2) mg/dL Magnesium (1.6-2.6) mg/dL Total Bilirubin (0.0-1.0) mg/dL AST (5-37) U/L ALT (0-40) U/L Alkaline Phosphatase (39-117) U/L Total Protein (6.5-8.0) g/dL Albumin (3.5-5.0) g/dL Lipase (8-78) U/L Acetone, Qual (Negative) COVID-19 (EARLINE) Positive A (Negative) COVID-19 Clin Com See Note Discharge Plan Discharge Clinical Impression: Diabetes, Lab test positive for detection of COVID-19 virus, Viral syndrome Patient Disposition: Home, Self-Care Instructions: Viral Syndrome (ED), COVID-19 (Coronavirus Disease 2019) (ED) Additional Instructions: 1. Resume all home medications as prescribed. 2. Continue stay well hydrated especially with water. 3. You must remain quarantine for the next 14 days and adhere to all state and Federal guidelines regulating COVID-19 infection. 4. Please follow-up with your primary care provider in the next 1-2 days via telemedicine for re-evaluation further outpatient management. Return to the ER for acute worsening of symptoms. Prescriptions: No Action Humalog Mix 75-25(U-100)Insuln 100 unit/mL (75-25) suspension 45 unit subcut BID RF: 0 Referrals: Papi Olivo MD [Primary Care Provider] - 2 days (COVID-19 positive)
[2021-04-03 00:55] VITALS: TEMP 37.4
[2021-04-03 01:06] LABS: Glucose, Whole Blood 78 mg/dL (60-115)
[2021-04-03] MEDS: ondansetron HCL 4 MG/2 ML VIAL IVPUSH (01:10)
[2021-04-03] MEDS: 0.9 % Sodium Chloride 3,000 ML 999 ML IV (01:11)
[2021-04-03 01:13] LABS: Basophils Percent Auto 0.4 % (0-2); Eosinophils Percent Auto 0.2 % (0-4); Hematocrit 49.2 % (42-52); Hemoglobin 16.7 g/dl (14.0-18.0); Imm Gran Abs Auto 0.02 X10*3/uL (0.00-0.03); Imm Gran Pct Auto 0.2 % (0.0-0.4); Lymphocytes Absolute Auto 1.8 X10*3/uL (1.2-4.9); Lymphocytes Percent Auto 22.2 % (20-40); MANUAL DIFF FLAG NO; Mean Corpuscular HGB Conc 33.9 g/dl (31.0-36.0); Mean Corpuscular Volume 85.6 fL (80-98); Monocytes Absolute Auto 1.2 X10*3/uL (0.1-1.2); Monocytes Percent Auto 14.4 % (2-11); Neutrophils Absolute Auto 5.1 X10*3/uL (2.0-8.3); Neutrophils Percent Auto 62.6 % (45-73); Platelet Count 277 X10*3/uL (160-400); Red Blood Count 5.75 X10*6/uL (4.60-5.80); White Blood Count 8.1 X10*3/uL (4.8-10.8)
[2021-04-03 01:17] VITALS: BP 139/89; PULSE 70; RESP 13; TEMP 37.4; O2SAT 100
[2021-04-03 01:27] LABS: Lactic Acid 1.1 mmol/L (0.5-2.0)
[2021-04-03 01:29] LABS: Acetone, serum QL Negative (Negative)
[2021-04-03 01:34] LABS: COVID-19 Test Positive (Negative); IDNOW Serial# 9DD0AD1C
[2021-04-03 01:38] LABS: Alanine Aminotransferase 11 U/L (0-40); Albumin Level 4.6 g/dL (3.5-5.0); Alkaline Phosphatase 73 U/L (39-117); Anion Gap 15 (12-20); Aspartate Amino Transferase 10 U/L (5-37); Bilirubin Total 0.9 mg/dL (0.0-1.0); Blood Urea Nitrogen 10 mg/dL (9-16); Calcium 9.9 mg/dL (8.4-10.2); Carbon Dioxide 28 mmol/L (22-29); Chloride 100 mmol/L (96-108); Creatinine Clr Calc Pharmacy 97.8; Estimated Glomerular Filt Rate > 60; Glucose Random 74 mg/dL (60-115); Lipase 8 U/L (8-78); Magnesium 2.4 mg/dL (1.6-2.6); Potassium 3.6 mmol/L (3.3-5.1); Sodium 139 mmol/L (135-145); Total Protein 7.5 g/dL (6.5-8.0)
[2021-04-03 03:17] VITALS: BP 132/88; PULSE 69; RESP 15; TEMP 37.4; O2SAT 100
--- NOTE | 2021-04-03 03:28 | PC.NURSE ---
This RN to bedside to assess VS and provide PO challenge to pt. Pt refuses food but is agreeable to juice. Pt reports feeling sweaty, requests his blood glucose be checked. BGL 88 Pt drank 1 apple juice and requests the 2 additional remain at bedside. Pt IVF continue to infuse. Pt requesting pain control for abd pain, Dr Plasencia made aware.
[2021-04-03 03:29] LABS: Glucose, Whole Blood 88 mg/dL (60-115)
[2021-04-03] MEDS: Lidocaine HCl Viscous 2 % 15 ML SOLUTION 10 ML MUCOUS MEM (03:52)
[2021-04-03] MEDS: Magnesium Hydrox/Alum Hydrox 30 ML ORAL.SUSP PO (03:52)
== END 2021-04-03 04:18 | disposition home or self-care (01) ==
PROVIDERS: Emergency Provider Student in an Organized Health Care Education/Training Program; PCP Internal Medicine
DX: U07.1 COVID-19 (principal); R11.2 Nausea with vomiting, unspecified; E11.9 Type 2 diabetes mellitus without complications; F12.90 Cannabis use, unspecified, uncomplicated
CPT/HCPCS: 36415; 71045; 80053; 82009; 82947; 83605; 83690; 83735; 85025; 87040; 87635; 96361; 96374; 99284; J2405

== ENCOUNTER 2021-05-24 11:38 | Emergency (ER) | payer OTHER, SELFPAY ==
[2021-05-24 11:42] VITALS: BP 150/94; PULSE 108; RESP 22; TEMP 36.8; O2SAT 99; BMI 24.2
--- NOTE | 2021-05-24 11:47 | ECG_ITS ---
Test Reason : DKA Blood Pressure : / mmHG Vent. Rate : 072 BPM Atrial Rate : 072 BPM P-R Int : 146 ms QRS Dur : 088 ms QT Int : 392 ms P-R-T Axes : 043 036 028 degrees QTc Int : 429 ms Sinus rhythm with marked sinus arrhythmia Early repolarization Otherwise normal ECG T wave amplitude has increased in Inferior leads Referred By: Lurdes Ortiz Electronically Signed By:BIN OQUENDO MD
--- NOTE | 2021-05-24 11:48 | ED.NAVMDI ---
HPI - Nausea/Vomiting/Diarrhea General Chief complaint: Abdominal Pain Stated complaint: vomiting Time Seen by Provider: 05/24/21 11:47 Source: patient and old records reviewed Mode of arrival: ambulatory Limitations: no limitations History of Present Illness MD elicited complaint: nausea, vomiting and abdominal pain Pertinent past history: cyclical vomiting and other (gastroparesis, DKA) Onset (ago): day(s) (1) Description of vomiting: food contents and watery Associated nausea: Yes Associated abdominal pain: Yes Location of pain: epigastric Pain consistency: constant Severity: moderate Quality: aching Exacerbating factors: eating Relieving factors: none Context: marijuana use and other (gastroparesis, IDDM) Associated symptoms: loss of appetite, malaise, nausea/vomiting and weakness Related Data Home Medications Medication Instructions Recorded Confirmed insulin lispro protamine-lispro 45 unit SUBCUT BID 04/03/21 05/24/21 100 unit/mL (75-25) subcutaneous susp (Humalog Mix 75-25(U-100)Insuln) Previous Rx's Medication Instructions Recorded ondansetron 4 mg disintegrating 4 mg PO Q8H PRN #20 tab 05/24/21 tablet Allergies Allergy/AdvReac Type Severity Reaction Status Date / Time passion fruit [PASSION FRUIT] Allergy Unknown UNK Verified 04/03/21 01:19 Review of Systems Review of Systems: Constitutional : No Weight loss, No Fever, No Chills ENT/Mouth : No sore throat, No Rhinorrhea Eyes: No Swelling, No Redness Cardiovascular : No Chest Pain, No SOB, NoEdema Respiratory : No Cough, No Sputum, No Wheezing Gastrointestinal : Positive Nausea, Positive Vomiting, no Diarrhea, positive abdominal Pain, No Hematochezia, No Melena Genitourinary : No Dysuria, No Urinary Frequency, No Hematuria, No Urgency Musculoskeletal : No joint pain, No Myalgias, No Joint Swelling Skin : No Skin Lesions, No rash Neuro : No Weakness, No Numbness, No Dizziness, No Headache Psych : No Anxiety/Panic, No Depression Heme/Lymph: No Bruising, No Lymphadenopathy Endocrine : No Polyuria, No Polydipsia All other systems reviewed and are negative. Gastrointestinal: Gastrointestinal: Reports nausea PMFSH Past Medical History Attestation statement: The following information was validated with the patient. Medical History Diabetes Gastroparesis Social History Social History Household Members: None Housing: Apartment Do you presently have visiting nurse or other home services: No Alcohol intake: current Alcohol intake frequency: holidays/special occasions only Patient Tobacco Use Status: Never used Tobacco Use of substances other than those prescribed or required for medical reasons: Yes Substance Use Type: Marijuana Advance Directives: Yes Advance Directives on File: Yes Advance Directives Date on File: 01/22/21 service: No Current occupational status: employed Physical Exam Vital Signs: Vital Signs: Last Vital Signs Temp 98.3 F 05/24/21 15:00 Pulse 73 05/24/21 15:00 Resp 18 05/24/21 15:00 BP 104/64 05/24/21 15:00 Pulse Ox 99 05/24/21 15:00 Body Mass Index 24.2 Appearance: Alert. Oriented X3. No acute distress. Eyes: Pupils equal, round and reactive to light. ENT: Pharynx mildly dry MM Neck: Normal inspection. Neck supple. CVS: Normal heart rate and rhythm. Pulses normal. Respiratory: No respiratory distress. Breath sounds normal. Abdomen: Soft and non-tender. Skin: Skin warm and dry. Normal skin color. Normal skin turgor. Extremities: No lower extremity edema. No calf ttp Neuro: Oriented X 3. No motor deficit. No sensory deficit. Course Course Course Narrative: mild gap HCO3 normal - will correct in ED. recheck BMP in 1 hour AG from lactic acidosis, normal HC03, neg acetone gap cleared feels better wants to tolerate PO able to tolerate PO fluids feels so much better MDM - Nausea/Vomiting/Diarrhea MDM Narrative Medical decision making narrative: 25 yo male with hx of IDDM, gastroparesis here with one day of vomiting and abdominal pain feels like DKA last took his insulin last night. BS 405 on ED arrival. At this time labs, IVF, insulin, DKA workup. Suspect gastroparesis vs DKA. Dispo per results and findings. Lab Data Result diagrams: 05/24/21 12:06 05/24/21 14:56 Labs: Lab Results 05/24/21 05/24/21 05/24/21 Range/Units 11:50 12:06 12:06 WBC 13.0 H (4.8-10.8) X10*3/uL RBC 5.73 (4.60-5.80) X10*6/uL Hgb 16.6 (14.0-18.0) g/dl Hct 48.0 (42-52) % MCV 83.8 (80-98) fL MCH 29.0 (27.0-33.0) pg MCHC 34.6 (31.0-36.0) g/dl RDW 12.0 (11.0-16.0) % Plt Count 250 (160-400) X10*3/uL MPV 10.3 (9.4-12.4) fL Immature Gran % (Auto) 0.4 (0.0-0.4) % Neut % (Auto) 80.6 H (45-73) % Lymph % (Auto) 10.3 L (20-40) % [place] % (Auto) 8.5 (2-11) % Eos % (Auto) 0.0 (0-4) % Baso % (Auto) 0.2 (0-2) % Lymph # (Auto) 1.3 (1.2-4.9) X10*3/uL [place] # (Auto) 1.1 (0.1-1.2) X10*3/uL Eos # (Auto) 0.0 (0.0-0.4) X10*3/uL Baso # (Auto) 0.0 (0.0-0.2) X10*3/uL Abs Immat Gran (auto) 0.05 H (0.00-0.03) X10*3/uL Absolute Neuts (auto) 10.5 H (2.0-8.3) X10*3/uL Absolute Nucleated RBC 0.000 (0.0-0.012) X10*3/uL Nucleated RBC % (auto) 0.0 (0.0-0.2) /100WBC VBG pH (7.32-7.43) VBG pCO2 mmHg VBG pO2 mmHg VBG HCO3 (22-26) mmol/L VBG O2 Saturation % VBG Base Excess mmol/L Sodium (135-145) mmol/L Potassium (3.3-5.1) mmol/L Chloride (96-108) mmol/L Carbon Dioxide (22-29) mmol/L Anion Gap (12-20) BUN (9-16) mg/dL Creatinine (0.5-1.4) mg/dL Estim Creat Clear Calc Estimated GFR POC Glucose 403 H* (60-115) mg/dL Random Glucose (60-115) mg/dL Lactic Acid 2.2 H* (0.5-2.0) mmol/L Lactic Acid Fup @ 2Hr (0.5-2.0) mmol/L Calcium (8.4-10.2) mg/dL Magnesium (1.6-2.6) mg/dL Total Bilirubin (0.0-1.0) mg/dL Direct Bilirubin (0.0-0.5) mg/dL AST (5-37) U/L ALT (0-40) U/L Alkaline Phosphatase (39-117) U/L Total Protein (6.5-8.0) g/dL Albumin (3.5-5.0) g/dL Lipase (8-78) U/L Acetone, Qual (Negative) COVID-19 (EARLINE) (Negative) COVID-19 Clin Com 05/24/21 05/24/21 05/24/21 Range/Units 12:06 12:08 12:10 WBC (4.8-10.8) X10*3/uL RBC (4.60-5.80) X10*6/uL Hgb (14.0-18.0) g/dl Hct (42-52) % MCV (80-98) fL MCH (27.0-33.0) pg MCHC (31.0-36.0) g/dl RDW (11.0-16.0) % Plt Count (160-400) X10*3/uL MPV (9.4-12.4) fL Immature Gran % (Auto) (0.0-0.4) % Neut % (Auto) (45-73) % Lymph % (Auto) (20-40) % [place] % (Auto) (2-11) % Eos % (Auto) (0-4) % Baso % (Auto) (0-2) % Lymph # (Auto) (1.2-4.9) X10*3/uL [place] # (Auto) (0.1-1.2) X10*3/uL Eos # (Auto) (0.0-0.4) X10*3/uL Baso # (Auto) (0.0-0.2) X10*3/uL Abs Immat Gran (auto) (0.00-0.03) X10*3/uL Absolute Neuts (auto) (2.0-8.3) X10*3/uL Absolute Nucleated RBC (0.0-0.012) X10*3/uL Nucleated RBC % (auto) (0.0-0.2) /100WBC VBG pH 7.39 (7.32-7.43) VBG pCO2 39 mmHg VBG pO2 48 mmHg VBG HCO3 24 (22-26) mmol/L VBG O2 Saturation 75.0 % VBG Base Excess -0.3 mmol/L Sodium 133 L (135-145) mmol/L Potassium 4.3 (3.3-5.1) mmol/L Chloride 91 L (96-108) mmol/L Carbon Dioxide 25 (22-29) mmol/L Anion Gap 21 H (12-20) BUN 20 H D (9-16) mg/dL Creatinine 1.28 (0.5-1.4) mg/dL Estim Creat Clear Calc 80.3 Estimated GFR > 60 POC Glucose (60-115) mg/dL Random Glucose 424 H* (60-115) mg/dL Lactic Acid (0.5-2.0) mmol/L Lactic Acid Fup @ 2Hr (0.5-2.0) mmol/L Calcium 10.2 (8.4-10.2) mg/dL Magnesium 2.1 (1.6-2.6) mg/dL Total Bilirubin 0.6 (0.0-1.0) mg/dL Direct Bilirubin 0.3 (0.0-0.5) mg/dL AST 14 (5-37) U/L ALT 19 (0-40) U/L Alkaline Phosphatase 79 (39-117) U/L Total Protein 7.7 (6.5-8.0) g/dL Albumin 4.6 (3.5-5.0) g/dL Lipase 10 (8-78) U/L Acetone, Qual Negative (Negative) COVID-19 (EARLINE) Negative (Negative) COVID-19 Clin Com See Note 05/24/21 05/24/21 05/24/21 Range/Units 13:42 14:56 14:56 WBC (4.8-10.8) X10*3/uL RBC (4.60-5.80) X10*6/uL Hgb (14.0-18.0) g/dl Hct (42-52) % MCV (80-98) fL MCH (27.0-33.0) pg MCHC (31.0-36.0) g/dl RDW (11.0-16.0) % Plt Count (160-400) X10*3/uL MPV (9.4-12.4) fL Immature Gran % (Auto) (0.0-0.4) % Neut % (Auto) (45-73) % Lymph % (Auto) (20-40) % [place] % (Auto) (2-11) % Eos % (Auto) (0-4) % Baso % (Auto) (0-2) % Lymph # (Auto) (1.2-4.9) X10*3/uL [place] # (Auto) (0.1-1.2) X10*3/uL Eos # (Auto) (0.0-0.4) X10*3/uL Baso # (Auto) (0.0-0.2) X10*3/uL Abs Immat Gran (auto) (0.00-0.03) X10*3/uL Absolute Neuts (auto) (2.0-8.3) X10*3/uL Absolute Nucleated RBC (0.0-0.012) X10*3/uL Nucleated RBC % (auto) (0.0-0.2) /100WBC VBG pH (7.32-7.43) VBG pCO2 mmHg VBG pO2 mmHg VBG HCO3 (22-26) mmol/L VBG O2 Saturation % VBG Base Excess mmol/L Sodium 134 L (135-145) mmol/L Potassium 4.4 (3.3-5.1) mmol/L Chloride 99 (96-108) mmol/L Carbon Dioxide 25 (22-29) mmol/L Anion Gap 14 (12-20) BUN 18 H (9-16) mg/dL Creatinine 0.95 (0.5-1.4) mg/dL Estim Creat Clear Calc 108.1 Estimated GFR > 60 POC Glucose 355 H* (60-115) mg/dL Random Glucose 316 H (60-115) mg/dL Lactic Acid (0.5-2.0) mmol/L Lactic Acid Fup @ 2Hr 1.5 (0.5-2.0) mmol/L Calcium 9.2 D (8.4-10.2) mg/dL Magnesium (1.6-2.6) mg/dL Total Bilirubin (0.0-1.0) mg/dL Direct Bilirubin (0.0-0.5) mg/dL AST (5-37) U/L ALT (0-40) U/L Alkaline Phosphatase (39-117) U/L Total Protein (6.5-8.0) g/dL Albumin (3.5-5.0) g/dL Lipase (8-78) U/L Acetone, Qual (Negative) COVID-19 (EARLINE) (Negative) COVID-19 Clin Com ECG Data Attestation: I personally reviewed and interpreted this ECG as follows: ECG interpretation date: 05/24/21 ECG interpretation time: 12:00 Interpretation: Rate: 72 Rhythm: NSR [place]: normal Normal P waves. Normal TATE. Normal QRS complex. ST T wave : artifact but no PUNEET qTC: normal prior studies: no acute ischemia The study has been interpreted contemporaneously by me. . Critical Care Time Critical Care Time Critical Care Time: Yes Total Critical Care Time: 60 Attestation: 3L of IVF, repeat lab tests, IV insulin I attest to this time spent taking care of the patient Discharge Plan Discharge Clinical Impression: Acute hyperglycemia, Acidosis, lactic, Acute dehydration Vomiting Qualifiers: Vomiting type: unspecified Vomiting Intractability: non-intractable Nausea presence: with nausea Qualified Code(s): R11.2 - Nausea with vomiting, unspecified Patient Disposition: Home, Self-Care Instructions: Dehydration (ED), Acute Nausea and Vomiting (ED), Diabetic Hyperglycemia (ED) Additional Instructions: return to ED for any worsening symptoms or concerns Prescriptions: New ondansetron 4 mg tablet,disintegrating 4 mg PO Q8H PRN (Reason: nausea and vomiting) Qty: 20 RF: 0 No Action Humalog Mix 75-25(U-100)Insuln 100 unit/mL (75-25) suspension 45 unit subcut BID RF: 0 Stand Alone Forms: Work/School Release
[2021-05-24 12:00] VITALS: BP 122/70; PULSE 64; RESP 18; O2SAT 98
[2021-05-24 12:05] LABS: Glucose, Whole Blood 403 mg/dL (60-115)
[2021-05-24] MEDS: Lactated Ringers 1,000 ML 999 ML IV (12:06)
--- NOTE | 2021-05-24 12:11 | PHA.MEDREC ---
Pharmacy Consult ? Medication Reconciliation Pharmacy has completed the medication reconciliation.
[2021-05-24 12:13] LABS: Basophils Percent Auto 0.2 % (0-2); Hemoglobin 16.6 g/dl (14.0-18.0); Imm Gran Abs Auto 0.05 X10*3/uL (0.00-0.03); Imm Gran Pct Auto 0.4 % (0.0-0.4); Lymphocytes Absolute Auto 1.3 X10*3/uL (1.2-4.9); Lymphocytes Percent Auto 10.3 % (20-40); MANUAL DIFF FLAG NO; Mean Corpuscular HGB Conc 34.6 g/dl (31.0-36.0); Mean Corpuscular Volume 83.8 fL (80-98); Mean Platelet Volume 10.3 fL (9.4-12.4); Monocytes Absolute Auto 1.1 X10*3/uL (0.1-1.2); Monocytes Percent Auto 8.5 % (2-11); Neutrophils Absolute Auto 10.5 X10*3/uL (2.0-8.3); Neutrophils Percent Auto 80.6 % (45-73); Platelet Count 250 X10*3/uL (160-400); Red Blood Count 5.73 X10*6/uL (4.60-5.80)
[2021-05-24 12:14] LABS: Venous Blood Gas Refer to POC result
[2021-05-24 12:15] LABS: VBG Base Excess -0.3 mmol/L; VBG HCO3 24 mmol/L (22-26); VBG pCO2 39 mmHg; VBG pH 7.39 (7.32-7.43); VBG pO2 48 mmHg
[2021-05-24] MEDS: diphenhydrAMINE HCL 50 MG/ML VIAL 25 MG IVPUSH (12:18)
[2021-05-24] MEDS: Insulin Regular, Human 100 UNIT/ML 3 ML VIAL 10 UNIT IVPUSH (12:18)
[2021-05-24] MEDS: Metoclopramide HCl 10 MG/2 ML VIAL IVPUSH (12:18)
[2021-05-24 12:23] VITALS: BMI 24.2
[2021-05-24 12:31] LABS: Lactic Acid 2.2 mmol/L (0.5-2.0)
[2021-05-24 12:32] LABS: COVID-19 Test Negative (Negative)
[2021-05-24 12:39] LABS: Acetone, serum QL Negative (Negative); Alanine Aminotransferase 19 U/L (0-40); Albumin Level 4.6 g/dL (3.5-5.0); Alkaline Phosphatase 79 U/L (39-117); Anion Gap 21 (12-20); Aspartate Amino Transferase 14 U/L (5-37); Bilirubin Direct 0.3 mg/dL (0.0-0.5); Bilirubin Total 0.6 mg/dL (0.0-1.0); Blood Urea Nitrogen 20 mg/dL (9-16); Calcium 10.2 mg/dL (8.4-10.2); Carbon Dioxide 25 mmol/L (22-29); Chloride 91 mmol/L (96-108); Creatinine Clr Calc Pharmacy 80.3; Estimated Glomerular Filt Rate > 60; Glucose Random 424 mg/dL (60-115); Lipase 10 U/L (8-78); Magnesium 2.1 mg/dL (1.6-2.6); Potassium 4.3 mmol/L (3.3-5.1); Sodium 133 mmol/L (135-145); Total Protein 7.7 g/dL (6.5-8.0)
[2021-05-24] MEDS: 0.9 % Sodium Chloride 1,000 ML 999 ML IV ×2 (12:46→15:08)
[2021-05-24 13:46] LABS: Glucose, Whole Blood 355 mg/dL (60-115)
[2021-05-24 14:10] LABS: Reflex Lactate? Lactic Acid Added
[2021-05-24] MEDS: Insulin Regular, Human 100 UNIT/ML 3 ML VIAL IVPUSH (14:15)
[2021-05-24 15:00] VITALS: BP 104/64; PULSE 73; RESP 18; TEMP 36.8; O2SAT 99
--- NOTE | 2021-05-24 15:11 | PC.NURSE ---
care assumed for pt, pt resting in bed- aox3 speaking in full clear sentences. pt aware of plan of care- 1L ns hung. awaiting random glucose result.
[2021-05-24 15:14] LABS: ~Lactic Acid-LAB USE ONLY 1.5 mmol/L (0.5-2.0)
[2021-05-24 15:25] LABS: Anion Gap 14 (12-20); Blood Urea Nitrogen 18 mg/dL (9-16); Calcium 9.2 mg/dL (8.4-10.2); Carbon Dioxide 25 mmol/L (22-29); Chloride 99 mmol/L (96-108); Creatinine Clr Calc Pharmacy 108.1; Estimated Glomerular Filt Rate > 60; Glucose Random 316 mg/dL (60-115); Potassium 4.4 mmol/L (3.3-5.1); Sodium 134 mmol/L (135-145)
== END 2021-05-24 16:46 | disposition home or self-care (01) ==
PROVIDERS: Emergency Provider Emergency Medicine; PCP Internal Medicine
DX: E87.2 Acidosis (principal); E86.0 Dehydration; E11.65 Type 2 diabetes mellitus with hyperglycemia; R11.2 Nausea with vomiting, unspecified; Z79.4 Long term (current) use of insulin; Z20.822 Contact with and (suspected) exposure to COVID-19
CPT/HCPCS: 36415; 80048; 80076; 82009; 82803; 82947; 83605; 83690; 83735; 85025; 87635; 93005; 96361; 96374; 96375; 96376; 99285; 99291; J1200; J2765

== ENCOUNTER 2021-06-19 23:06 | Emergency (ER) | payer OTHER, SELFPAY ==
[2021-06-19 23:19] VITALS: BP 151/109; PULSE 104; RESP 18; TEMP 36.4; O2SAT 98; BMI 24.2
--- NOTE | 2021-06-19 23:29 | ED.NAVMDI ---
HPI - Nausea/Vomiting/Diarrhea General Chief complaint: Nausea/Vomiting/Diarrhea Stated complaint: Vomiting Time Seen by Provider: 06/19/21 23:22 Source: patient Mode of arrival: ambulatory Limitations: no limitations History of Present Illness HPI Narrative: 26-year-old male with a history of type 1 diabetes diagnosed at the age of 17, history of gastroparesis, history of recurrent DKA who presents to the ER with nausea and vomiting that started about 1 hour ago. He reports 4 episodes of nonbloody vomiting of food contents. He reports this morning he started not feeling well with excessive fatigue and stayed in bed all day. He also reports epigastric abdominal pain that is constant and started 1 hour ago as well. He reports compliance with his insulin and last took his 75-25 mix at 21:00 this evening. Last sugar was in the 200s. He is concerned he is DKA. MD elicited complaint: nausea, vomiting and abdominal pain Pertinent past history: other (diabetes, DKA) Onset (ago): hour(s) (1) Description of vomiting: food contents and watery Associated nausea: Yes Associated abdominal pain: Yes Location of pain: epigastric Pain consistency: constant Severity: moderate Quality: aching and dull Exacerbating factors: none Relieving factors: none Associated symptoms: loss of appetite, nausea/vomiting and anxiety Related Data Home Medications Medication Instructions Recorded Confirmed insulin lispro protamine-lispro 45 unit SUBCUT BID 04/03/21 05/24/21 100 unit/mL (75-25) subcutaneous susp (Humalog Mix 75-25(U-100)Insuln) Previous Rx's Medication Instructions Recorded ondansetron 4 mg disintegrating 4 mg PO Q8H PRN #20 tab 05/24/21 tablet metoclopramide HCl 10 mg tablet 5 mg PO AC #10 tab 06/20/21 (Reglan) Allergies Allergy/AdvReac Type Severity Reaction Status Date / Time passion fruit [PASSION FRUIT] Allergy Unknown UNK Verified 04/03/21 01:19 Review of Systems Review of Systems: Constitutional: No Fever, No Chills ENT/Mouth: No sore throat, No Rhinorrhea, No Swallowing Difficulty Cardiovascular: No Chest Pain, No SOB Respiratory: No Cough, No Sputum, No Wheezing, No dyspnea Gastrointestinal: + Nausea, + Vomiting, No Diarrhea, + abdominal Pain, No Hematochezia, No Melena Genitourinary: No Dysuria, No Urinary Frequency, No Hematuria Musculoskeletal: No joint pain, No Myalgias Skin: No Skin Lesions, No rash Neuro: No Weakness, No Numbness, No Dizziness, No Headache Psych: + Anxiety/Panic, No Depression Heme/Lymph: No Bruising, No Lymphadenopathy Endocrine: No Polyuria, No Polydipsia Gastrointestinal: Gastrointestinal: Reports nausea PMFSH Past Medical History Medical History Diabetes Gastroparesis Social History Social History Household Members: None Housing: Apartment Do you presently have visiting nurse or other home services: No Alcohol intake: current Alcohol intake frequency: holidays/special occasions only Patient Tobacco Use Status: Never used Tobacco Substance Use Type: Marijuana Advance Directives: Yes Advance Directives on File: Yes Advance Directives Date on File: 01/22/21 service: No Current occupational status: employed Physical Exam Vital Signs: Vital Signs: Last Vital Signs Temp 97.6 F 06/19/21 23:19 Pulse 104 H 06/19/21 23:19 Resp 18 06/19/21 23:19 BP 151/109 H 06/19/21 23:19 Pulse Ox 98 06/19/21 23:19 Body Mass Index 24.2 Appearance: Alert. Oriented X3. No acute distress. No diaphoresis Eyes: Pupils equal, round and reactive to light. ENT: Pharynx normal. Neck: Normal inspection. Neck supple. CVS: Normal heart rate and rhythm. Pulses normal. Respiratory: No respiratory distress. Breath sounds normal. No hyperventilation. Abdomen: Soft with mild epigastric tenderness. No rebound or guarding. Hyperactive BS x4 Skin: Skin warm and dry. Normal skin color. Normal skin turgor. No rashes. Extremities: No lower extremity edema. Neuro: Oriented X 3. No motor deficit. No sensory deficit. Course Course Course Narrative: 26-year-old male with a history of type 1 diabetes history, gastroparesis andrecurrent DKA presenting to the ER with 1 hour of nausea, vomiting, or abdominal pain. He reports compliance with his insulin. No signs or symptoms of infection. He appears well on arrival. Sugars in the 200s. Doubt DKA. This is most likely a flare of his gastroparesis. Will treat with IV fluids and Reglan. Will check labs to rule out euglycemic DKA although this is less likely. Reevaluation(s) Reevaluation #1: Labs are reassuring. No anion gap. Glucose is 240. No evidence of DKA at this time. He was given Reglan and IV fluids and is feeling much better. He is stable for discharge home. He will follow up with his nuclear control operator at [facility] next week. He has been on insulin pump in the past and would like to really explore that. MDM - Nausea/Vomiting/Diarrhea Lab Data Result diagrams: 06/19/21 23:34 06/19/21 23:34 Labs: Lab Results 06/19/21 06/19/21 06/19/21 Range/Units 23:29 23:34 23:34 WBC 7.2 (4.8-10.8) X10*3/uL RBC 5.36 (4.60-5.80) X10*6/uL Hgb 15.7 (14.0-18.0) g/dl Hct 45.0 (42.0-52.0) % MCV 84.0 (80.0-98.0) fL MCH 29.3 (27.0-33.0) pg MCHC 34.9 (31.0-36.0) g/dl RDW 12.0 (11.0-16.0) % Plt Count 233 (160-400) X10*3/uL MPV 10.1 (9.4-12.4) fL Immature Gran % (Auto) 0.1 (0.0-0.4) % Neut % (Auto) 60.8 (45-73) % Lymph % (Auto) 27.8 (20-40) % [place] % (Auto) 9.9 (2-11) % Eos % (Auto) 1.1 (0-4) % Baso % (Auto) 0.3 (0-2) % Lymph # (Auto) 2.0 (1.2-4.9) X10*3/uL [place] # (Auto) 0.7 (0.1-1.2) X10*3/uL Eos # (Auto) 0.1 (0.0-0.4) X10*3/uL Baso # (Auto) 0.0 (0.0-0.2) X10*3/uL Abs Immat Gran (auto) 0.01 (0.00-0.03) X10*3/uL Absolute Neuts (auto) 4.3 (2.0-8.3) x10*3/uL Absolute Nucleated RBC 0.000 (0.0-0.012) X10*3/uL Nucleated RBC % (auto) 0.0 (0.0-0.2) /100WBC VBG pH (7.32-7.43) VBG pCO2 mmHg VBG pO2 mmHg VBG HCO3 (22-26) mmol/L VBG O2 Saturation % VBG Base Excess mmol/L Sodium 138 (135-145) mmol/L Potassium 3.4 D (3.3-5.1) mmol/L Chloride 99 (96-108) mmol/L Carbon Dioxide 30 H (22-29) mmol/L Anion Gap 12 (12-20) BUN 13 (9-16) mg/dL Creatinine 1.38 (0.5-1.4) mg/dL Estim Creat Clear Calc 73.8 Estimated GFR > 60 POC Glucose 272 H (60-115) mg/dL Random Glucose 240 H (60-115) mg/dL Calcium 10.0 D (8.4-10.2) mg/dL Magnesium 1.9 (1.6-2.6) mg/dL Total Bilirubin 0.3 (0.0-1.0) mg/dL Direct Bilirubin 0.2 (0.0-0.5) mg/dL AST 12 (5-37) U/L ALT 15 (0-40) U/L Alkaline Phosphatase 66 (39-117) U/L Total Protein 7.0 (6.5-8.0) g/dL Albumin 4.3 (3.5-5.0) g/dL Lipase 29 (8-78) U/L Ethyl Alcohol mg/dL Acetone, Qual (Negative) COVID-19 (EARLINE) (Negative) COVID-19 Clin Com 06/19/21 06/19/21 06/19/21 Range/Units 23:34 23:34 23:34 WBC (4.8-10.8) X10*3/uL RBC (4.60-5.80) X10*6/uL Hgb (14.0-18.0) g/dl Hct (42.0-52.0) % MCV (80.0-98.0) fL MCH (27.0-33.0) pg MCHC (31.0-36.0) g/dl RDW (11.0-16.0) % Plt Count (160-400) X10*3/uL MPV (9.4-12.4) fL Immature Gran % (Auto) (0.0-0.4) % Neut % (Auto) (45-73) % Lymph % (Auto) (20-40) % [place] % (Auto) (2-11) % Eos % (Auto) (0-4) % Baso % (Auto) (0-2) % Lymph # (Auto) (1.2-4.9) X10*3/uL [place] # (Auto) (0.1-1.2) X10*3/uL Eos # (Auto) (0.0-0.4) X10*3/uL Baso # (Auto) (0.0-0.2) X10*3/uL Abs Immat Gran (auto) (0.00-0.03) X10*3/uL Absolute Neuts (auto) (2.0-8.3) x10*3/uL Absolute Nucleated RBC (0.0-0.012) X10*3/uL Nucleated RBC % (auto) (0.0-0.2) /100WBC VBG pH (7.32-7.43) VBG pCO2 mmHg VBG pO2 mmHg VBG HCO3 (22-26) mmol/L VBG O2 Saturation % VBG Base Excess mmol/L Sodium (135-145) mmol/L Potassium (3.3-5.1) mmol/L Chloride (96-108) mmol/L Carbon Dioxide (22-29) mmol/L Anion Gap (12-20) BUN (9-16) mg/dL Creatinine (0.5-1.4) mg/dL Estim Creat Clear Calc Estimated GFR POC Glucose (60-115) mg/dL Random Glucose (60-115) mg/dL Calcium (8.4-10.2) mg/dL Magnesium (1.6-2.6) mg/dL Total Bilirubin (0.0-1.0) mg/dL Direct Bilirubin (0.0-0.5) mg/dL AST (5-37) U/L ALT (0-40) U/L Alkaline Phosphatase (39-117) U/L Total Protein (6.5-8.0) g/dL Albumin (3.5-5.0) g/dL Lipase (8-78) U/L Ethyl Alcohol < 10 mg/dL Acetone, Qual Negative (Negative) COVID-19 (EARLINE) Negative (Negative) COVID-19 Clin Com See Note 06/19/21 Range/Units 23:36 WBC (4.8-10.8) X10*3/uL RBC (4.60-5.80) X10*6/uL Hgb (14.0-18.0) g/dl Hct (42.0-52.0) % MCV (80.0-98.0) fL MCH (27.0-33.0) pg MCHC (31.0-36.0) g/dl RDW (11.0-16.0) % Plt Count (160-400) X10*3/uL MPV (9.4-12.4) fL Immature Gran % (Auto) (0.0-0.4) % Neut % (Auto) (45-73) % Lymph % (Auto) (20-40) % [place] % (Auto) (2-11) % Eos % (Auto) (0-4) % Baso % (Auto) (0-2) % Lymph # (Auto) (1.2-4.9) X10*3/uL [place] # (Auto) (0.1-1.2) X10*3/uL Eos # (Auto) (0.0-0.4) X10*3/uL Baso # (Auto) (0.0-0.2) X10*3/uL Abs Immat Gran (auto) (0.00-0.03) X10*3/uL Absolute Neuts (auto) (2.0-8.3) x10*3/uL Absolute Nucleated RBC (0.0-0.012) X10*3/uL Nucleated RBC % (auto) (0.0-0.2) /100WBC VBG pH 7.44 H (7.32-7.43) VBG pCO2 46 mmHg VBG pO2 48 mmHg VBG HCO3 32 H (22-26) mmol/L VBG O2 Saturation 74.0 % VBG Base Excess 6.7 mmol/L Sodium (135-145) mmol/L Potassium (3.3-5.1) mmol/L Chloride (96-108) mmol/L Carbon Dioxide (22-29) mmol/L Anion Gap (12-20) BUN (9-16) mg/dL Creatinine (0.5-1.4) mg/dL Estim Creat Clear Calc Estimated GFR POC Glucose (60-115) mg/dL Random Glucose (60-115) mg/dL Calcium (8.4-10.2) mg/dL Magnesium (1.6-2.6) mg/dL Total Bilirubin (0.0-1.0) mg/dL Direct Bilirubin (0.0-0.5) mg/dL AST (5-37) U/L ALT (0-40) U/L Alkaline Phosphatase (39-117) U/L Total Protein (6.5-8.0) g/dL Albumin (3.5-5.0) g/dL Lipase (8-78) U/L Ethyl Alcohol mg/dL Acetone, Qual (Negative) COVID-19 (EARLINE) (Negative) COVID-19 Clin Com Critical Care Time Critical Care Time Critical Care Time: No Discharge Plan Discharge Clinical Impression: Gastroparesis Patient Disposition: Home, Self-Care Instructions: Diabetic Gastroparesis (DC) Additional Instructions: Your labs today were unremarkable, no evidence of DKA. Recommend trial oral Reglan 30 minutes before your meals. This will help with her gastroparesis and prevent nausea and vomiting. This was sent to your pharmacy. Follow-up with your nuclear control operator next week. If you develop new or worsening symptoms call 911 or come back to the ER for further evaluation. Prescriptions: New metoclopramide HCl [Reglan] 10 mg tablet 5 mg PO AC Qty: 10 RF: 0 No Action Humalog Mix 75-25(U-100)Insuln 100 unit/mL (75-25) suspension 45 unit subcut BID RF: 0 ondansetron 4 mg tablet,disintegrating 4 mg PO Q8H PRN (Reason: nausea and vomiting) Qty: 20 RF: 0
[2021-06-19 23:40] LABS: Glucose, Whole Blood 272 mg/dL (60-115)
[2021-06-19 23:42] LABS: VBG Base Excess 6.7 mmol/L; VBG HCO3 32 mmol/L (22-26); VBG pCO2 46 mmHg; VBG pH 7.44 (7.32-7.43); VBG pO2 48 mmHg
[2021-06-19 23:43] LABS: MANUAL DIFF FLAG NO
[2021-06-19 23:43] LABS: Venous Blood Gas Refer to POC result
[2021-06-19 23:46] LABS: Basophils Percent Auto 0.3 % (0-2); Eosinophils Absolute Auto 0.1 X10*3/uL (0.0-0.4); Eosinophils Percent Auto 1.1 % (0-4); Hemoglobin 15.7 g/dl (14.0-18.0); Imm Gran Abs Auto 0.01 X10*3/uL (0.00-0.03); Imm Gran Pct Auto 0.1 % (0.0-0.4); Lymphocytes Percent Auto 27.8 % (20-40); Mean Corpuscular HGB Conc 34.9 g/dl (31.0-36.0); Mean Corpuscular Hemoglobin 29.3 pg (27.0-33.0); Mean Platelet Volume 10.1 fL (9.4-12.4); Monocytes Absolute Auto 0.7 X10*3/uL (0.1-1.2); Monocytes Percent Auto 9.9 % (2-11); Neutrophils Absolute Auto 4.3 x10*3/uL (2.0-8.3); Neutrophils Percent Auto 60.8 % (45-73); Platelet Count 233 X10*3/uL (160-400); Red Blood Count 5.36 X10*6/uL (4.60-5.80); White Blood Count 7.2 X10*3/uL (4.8-10.8)
[2021-06-19] MEDS: Metoclopramide HCl 10 MG/2 ML VIAL IVPUSH (23:49)
[2021-06-19] MEDS: 0.9 % Sodium Chloride 1,000 ML 999 ML IVCONT (23:50)
[2021-06-19 23:52] LABS: Acetone, serum QL Negative (Negative)
[2021-06-19 23:57] LABS: Ethanol < 10 mg/dL
[2021-06-20] LABS: Alanine Aminotransferase 15 U/L (0-40); Albumin Level 4.3 g/dL (3.5-5.0); Alkaline Phosphatase 66 U/L (39-117); Anion Gap 12 (12-20); Aspartate Amino Transferase 12 U/L (5-37); Bilirubin Direct 0.2 mg/dL (0.0-0.5); Bilirubin Total 0.3 mg/dL (0.0-1.0); Blood Urea Nitrogen 13 mg/dL (9-16); COVID-19 Test Negative (Negative); Carbon Dioxide 30 mmol/L (22-29); Chloride 99 mmol/L (96-108); Creatinine Clr Calc Pharmacy 73.8; Estimated Glomerular Filt Rate > 60; Glucose Random 240 mg/dL (60-115); IDNOW Serial# 9DD0AD1C; Lipase 29 U/L (8-78); Magnesium 1.9 mg/dL (1.6-2.6); Potassium 3.4 mmol/L (3.3-5.1); Sodium 138 mmol/L (135-145)
[2021-06-20 00:30] VITALS: PULSE 16
--- NOTE | 2021-06-20 00:32 | PC.NURSE ---
pt a&o, no sob or chest pain, medicated per oct. reviewed discharge instructions.
== END 2021-06-20 00:45 | disposition home or self-care (01) ==
PROVIDERS: Physician Assistant; Emergency Provider Internal Medicine
DX: E10.43 Type 1 diabetes mellitus with diabetic autonomic (poly)neuropathy (principal); K31.84 Gastroparesis; Z20.822 Contact with and (suspected) exposure to COVID-19
CPT/HCPCS: 36415; 80048; 80076; 82009; 82077; 82803; 82947; 83690; 83735; 85025; 87635; 96361; 96374; 99284; J2765

== ENCOUNTER 2021-06-22 12:29 | Inpatient (IN) | payer OTHER, SELFPAY ==
--- NOTE | 2021-06-22 | ECG_ITS ---
Test Reason : ABDOMINAL PAIN Blood Pressure : / mmHG Vent. Rate : 102 BPM Atrial Rate : 102 BPM P-R Int : 122 ms QRS Dur : 076 ms QT Int : 304 ms P-R-T Axes : 033 037 007 degrees QTc Int : 396 ms Sinus tachycardia Nonspecific T wave abnormality Inferior leads Abnormal ECG When compared with ECG of 24-MAY-2021 11:59, Nonspecific T wave abnormality, worse in Inferior leads Referred By: Nikolai Flood Electronically Signed By:BIN OQUENDO MD
--- NOTE | ~2021-06-22 | XR_ITS ---
EXAMINATION: XR ABDOMEN KUB CLINICAL INDICATION: Abdominal pain COMPARISON: KUB 01/24/2021 TECHNIQUE: AP view of the abdomen. FINDINGS: There is scattered stool and gas in the colon without distention. No radiopaque renal calculi or edema gallstone seen. No organomegaly. No gross bony abnormality. XR/XR KUB IMPRESSION: Unremarkable abdomen exam. No change from 01/24/2021
[2021-06-22 13:43] VITALS: BP 153/98; PULSE 118; RESP 18; TEMP 37.2; O2SAT 99; BMI 24.2
[2021-06-22 13:53] LABS: Glucose, Whole Blood 343 mg/dL (60-115)
--- NOTE | 2021-06-22 16:47 | ED_ITS ---
HPI - Abdominal Pain General Chief Complaint: Abdominal Pain Stated Complaint: abd pain Time Seen by Provider: 06/22/21 16:38 Source: patient and old records reviewed History of Present Illness HPI narrative: Patient with a history of insulin-dependent diabetes as well as gastroparesis and episodes of diabetic ketoacidosis, presents with abdominal pain and vomiting which has been ongoing since approximately a week ago. He was seen here 4 days ago and at that time treated with IV fluids and IV antiemetics. His lab work showed no evidence of DKA. He was discharged home but states he never really felt better. He states he has continued to vomit ever since then. He occasionally can keep some liquids down but no p.o. solids. His blood glucose at home has been running between 2 and 300. He complains of generalized abdominal pain. Nonradiating. Similar to prior episodes of diabetic ketoacidosis as well as gastroparesis. No diarrhea. No alleviating or exacerbating factors He did not take insulin today as he has not had anything to eat. He cannot think of any specific causative factors. He did eat some pork loin that his father in law made, and states someone else got sick from it. He is unsure if that was the trigger. There are no other changes. Related Data Home Medications Medication Instructions Recorded Confirmed insulin lispro protamine-lispro 45 unit SUBCUT BID 04/03/21 05/24/21 100 unit/mL (75-25) subcutaneous susp (Humalog Mix 75-25(U-100)Insuln) Previous Rx's Medication Instructions Recorded ondansetron 4 mg disintegrating 4 mg PO Q8H PRN #20 tab 05/24/21 tablet metoclopramide HCl 10 mg tablet 5 mg PO AC #10 tab 06/20/21 (Reglan) Allergies Allergy/AdvReac Type Severity Reaction Status Date / Time passion fruit [PASSION FRUIT] Allergy Unknown UNK Verified 06/22/21 13:43 Review of Systems Comments: No fevers or chills Comments: No chest pain Comments: No cough or shortness of breath Comments: Generalized abdominal pain and intractable vomiting. No diarrhea Comments: No rash Comments: Insulin-dependent diabetes with recent hyperglycemia Physical Exam Vital Signs: Vital Signs: Last Vital Signs Temp 98.9 F 06/22/21 13:43 Pulse 118 H 06/22/21 13:43 Resp 18 06/22/21 13:43 BP 153/98 H 06/22/21 13:43 Pulse Ox 99 06/22/21 13:43 Body Mass Index 24.2 Const: Other: Awake and alert. Rubbing his abdomen. Appears uncomfortable Resp: Other: Clear and equal bilaterally without wheezes rales or rhonchi Cardio: Other: Regular rhythm without murmurs rubs or gallops. Mildly tachycardic at rest GI: Other: Soft. Nondistended. Diffuse mild tenderness without guarding or rebound. Normal bowel sounds Skin: Other: Warm pink and dry Neuro: Other: No focal neuro deficits Course Course Course Narrative: Intractable vomiting Gastroparesis Diabetic ketoacidosis Less likely cannabinoid hyperemesis syndrome. Dehydration Pancreatitis IV fluids IV insulin IV Reglan MDM - Abdominal Pain Lab Data Result diagrams: 06/22/21 16:55 06/22/21 16:55 Labs: Lab Results 06/22/21 06/22/21 06/22/21 Range/Units 13:49 16:55 16:55 WBC 15.5 H (4.8-10.8) X10*3/uL RBC 5.98 H (4.60-5.80) X10*6/uL Hgb 17.2 (14.0-18.0) g/dl Hct 51.7 (42.0-52.0) % MCV 86.5 (80.0-98.0) fL MCH 28.8 (27.0-33.0) pg MCHC 33.3 (31.0-36.0) g/dl RDW 12.1 (11.0-16.0) % Plt Count 312 D (160-400) X10*3/uL MPV 10.3 (9.4-12.4) fL Immature Gran % (Auto) 0.5 H (0.0-0.4) % Neut % (Auto) 82.3 H (45-73) % Lymph % (Auto) 8.1 L (20-40) % [place] % (Auto) 8.8 (2-11) % Eos % (Auto) 0.1 (0-4) % Baso % (Auto) 0.2 (0-2) % Lymph # (Auto) 1.3 (1.2-4.9) X10*3/uL [place] # (Auto) 1.4 H (0.1-1.2) X10*3/uL Eos # (Auto) 0.0 (0.0-0.4) X10*3/uL Baso # (Auto) 0.0 (0.0-0.2) X10*3/uL Abs Immat Gran (auto) 0.07 H (0.00-0.03) X10*3/uL Absolute Neuts (auto) 12.8 H (2.0-8.3) x10*3/uL Absolute Nucleated RBC 0.000 (0.0-0.012) X10*3/uL Nucleated RBC % (auto) 0.0 (0.0-0.2) /100WBC Sodium 132 L (135-145) mmol/L Potassium 4.9 D (3.3-5.1) mmol/L Chloride 99 (96-108) mmol/L Carbon Dioxide 8 L* D (22-29) mmol/L Anion Gap 30 H (12-20) BUN 15 (9-16) mg/dL Creatinine 1.53 H (0.5-1.4) mg/dL Estim Creat Clear Calc 66.6 Estimated GFR 56 POC Glucose 343 H (60-115) mg/dL Random Glucose 396 H* (60-115) mg/dL Lactic Acid (0.5-2.0) mmol/L Calcium 9.4 (8.4-10.2) mg/dL Total Bilirubin 1.0 (0.0-1.0) mg/dL AST 17 D (5-37) U/L ALT 15 (0-40) U/L Alkaline Phosphatase 84 D (39-117) U/L Total Protein 7.9 (6.5-8.0) g/dL Albumin 4.6 (3.5-5.0) g/dL Lipase 13 (8-78) U/L Acetone, Qual Small H (Negative) 06/22/21 06/22/21 06/22/21 Range/Units 16:55 17:06 17:54 WBC (4.8-10.8) X10*3/uL RBC (4.60-5.80) X10*6/uL Hgb (14.0-18.0) g/dl Hct (42.0-52.0) % MCV (80.0-98.0) fL MCH (27.0-33.0) pg MCHC (31.0-36.0) g/dl RDW (11.0-16.0) % Plt Count (160-400) X10*3/uL MPV (9.4-12.4) fL Immature Gran % (Auto) (0.0-0.4) % Neut % (Auto) (45-73) % Lymph % (Auto) (20-40) % [place] % (Auto) (2-11) % Eos % (Auto) (0-4) % Baso % (Auto) (0-2) % Lymph # (Auto) (1.2-4.9) X10*3/uL [place] # (Auto) (0.1-1.2) X10*3/uL Eos # (Auto) (0.0-0.4) X10*3/uL Baso # (Auto) (0.0-0.2) X10*3/uL Abs Immat Gran (auto) (0.00-0.03) X10*3/uL Absolute Neuts (auto) (2.0-8.3) x10*3/uL Absolute Nucleated RBC (0.0-0.012) X10*3/uL Nucleated RBC % (auto) (0.0-0.2) /100WBC Sodium (135-145) mmol/L Potassium (3.3-5.1) mmol/L Chloride (96-108) mmol/L Carbon Dioxide (22-29) mmol/L Anion Gap (12-20) BUN (9-16) mg/dL Creatinine (0.5-1.4) mg/dL Estim Creat Clear Calc Estimated GFR POC Glucose 356 H* 276 H (60-115) mg/dL Random Glucose (60-115) mg/dL Lactic Acid 3.0 H* (0.5-2.0) mmol/L Calcium (8.4-10.2) mg/dL Total Bilirubin (0.0-1.0) mg/dL AST (5-37) U/L ALT (0-40) U/L Alkaline Phosphatase (39-117) U/L Total Protein (6.5-8.0) g/dL Albumin (3.5-5.0) g/dL Lipase (8-78) U/L Acetone, Qual (Negative) Critical Care Time Critical Care Time Critical Care Time: Yes Total Critical Care Time: 50 Attestation: Critical care time secondary to diabetic ketoacidosis requiring aggressive IV resuscitation. Total of 50 minutes outside of separately billable procedures. Discharge Plan Discharge Prescriptions: No Action Humalog Mix 75-25(U-100)Insuln 100 unit/mL (75-25) suspension 45 unit subcut BID RF: 0 metoclopramide HCl [Reglan] 10 mg tablet 5 mg PO AC Qty: 10 RF: 0 ondansetron 4 mg tablet,disintegrating 4 mg PO Q8H PRN (Reason: nausea and vomiting) Qty: 20 RF: 0 PMFSH Past Medical History Medical History Diabetes Gastroparesis Social History Social History Household Members: None Housing: Apartment Do you presently have visiting nurse or other home services: No Alcohol intake: current Alcohol intake frequency: does not drink Patient Tobacco Use Status: Never used Tobacco Substance Use Type: Marijuana Advance Directives: Yes Advance Directives on File: Yes Advance Directives Date on File: 01/22/21 service: No Current occupational status: employed
[2021-06-22 17:05] LABS: MANUAL DIFF FLAG NO
[2021-06-22 17:07] LABS: Basophils Percent Auto 0.2 % (0-2); Eosinophils Percent Auto 0.1 % (0-4); Hematocrit 51.7 % (42.0-52.0); Hemoglobin 17.2 g/dl (14.0-18.0); Imm Gran Abs Auto 0.07 X10*3/uL (0.00-0.03); Imm Gran Pct Auto 0.5 % (0.0-0.4); Lymphocytes Absolute Auto 1.3 X10*3/uL (1.2-4.9); Lymphocytes Percent Auto 8.1 % (20-40); Mean Corpuscular HGB Conc 33.3 g/dl (31.0-36.0); Mean Corpuscular Hemoglobin 28.8 pg (27.0-33.0); Mean Corpuscular Volume 86.5 fL (80.0-98.0); Mean Platelet Volume 10.3 fL (9.4-12.4); Monocytes Absolute Auto 1.4 X10*3/uL (0.1-1.2); Monocytes Percent Auto 8.8 % (2-11); Neutrophils Absolute Auto 12.8 x10*3/uL (2.0-8.3); Neutrophils Percent Auto 82.3 % (45-73); Platelet Count 312 X10*3/uL (160-400); Red Blood Count 5.98 X10*6/uL (4.60-5.80); Red Cell Distribution Width 12.1 % (11.0-16.0); White Blood Count 15.5 X10*3/uL (4.8-10.8)
[2021-06-22] MEDS: Metoclopramide HCl 10 MG/2 ML VIAL IVPUSH (17:08)
[2021-06-22] MEDS: 0.9 % Sodium Chloride 1,000 ML 999 ML IV ×2 (17:08→18:05)
[2021-06-22 17:10] LABS: Glucose, Whole Blood 356 mg/dL (60-115)
[2021-06-22] MEDS: Insulin Regular, Human 100 UNIT/ML 3 ML VIAL 10 UNIT IVPUSH (17:11)
[2021-06-22 17:42] LABS: Alanine Aminotransferase 15 U/L (0-40); Albumin Level 4.6 g/dL (3.5-5.0); Alkaline Phosphatase 84 U/L (39-117); Anion Gap 30 (12-20); Aspartate Amino Transferase 17 U/L (5-37); Blood Urea Nitrogen 15 mg/dL (9-16); Calcium 9.4 mg/dL (8.4-10.2); Carbon Dioxide 8 mmol/L (22-29); Chloride 99 mmol/L (96-108); Creatinine Clr Calc Pharmacy 66.6; Estimated Glomerular Filt Rate 56; Glucose Random 396 mg/dL (60-115); Lipase 13 U/L (8-78); Potassium 4.9 mmol/L (3.3-5.1); Sodium 132 mmol/L (135-145); Total Protein 7.9 g/dL (6.5-8.0)
[2021-06-22 18:00] VITALS: PULSE 100; RESP 18
[2021-06-22 18:01] LABS: Glucose, Whole Blood 276 mg/dL (60-115)
[2021-06-22 18:32] LABS: Acetone, serum QL Small (Negative)
[2021-06-22] MEDS: Insulin Regular, Human 100 UNIT/ML 3 ML VIAL IVPUSH (18:32)
[2021-06-22 19:03] LABS: Reflex Lactate? Lactic Acid Added
[2021-06-22 19:30] LABS: Glucose, Whole Blood 208 mg/dL (60-115)
[2021-06-22] MEDS: Dextrose 5 % and Lactated Ring 1,000 ML 150 ML IVCONT (19:43)
[2021-06-22 20:10] VITALS: BP 151/93; PULSE 96; RESP 18; TEMP 36.7; O2SAT 98
[2021-06-22] MEDS: Insulin Regular/NS 100 UNIT/100 ML PLAST..BAG IVCONT (20:12)
[2021-06-22 20:13] LABS: ~Lactic Acid-LAB USE ONLY 2.1 mmol/L (0.5-2.0)
--- NOTE | 2021-06-22 20:14 | PM.CCHP ---
History of Present Illness Date of Service: 06/22/21 Attending physician on admission: Elmer Kuhn Chief Complaint: Vomiting Patient is a 26-year-old male past medical history type 1 diabetes and gastroparesis who comes in after vomiting x 4days.? He does admit to smoking marijuana and drinking heavily on his birthday celebrations. Denies any fevers chills diarrhea.? He reports compliance with Humalog/NovoLog mix insulin, but due to nausea and vomiting has not been able to eat much food in last couple of days.? Labs significant for WBC 15.5,?serum sodium 132, CO2 8, and anion gap 30, BUN 15, creatinine 1.53 and glucose 396. Lactic acid 3 In the ED he received a total of 15 of IV insulin, 2 L normal saline bolus, and Reglan. ?And later started on insulin drip He will be admitted into the ICU for management of DKA required insulin drip Review of Systems Review of Systems: PER [facility] Past Medical History Medical History Diabetes Gastroparesis Social History Social History Household Members: None Housing: Apartment Do you presently have visiting nurse or other home services: No Alcohol intake: current Alcohol intake frequency: does not drink Patient Tobacco Use Status: Never used Tobacco Substance Use Type: Marijuana Advance Directives: Yes Advance Directives on File: Yes Advance Directives Date on File: 01/22/21 service: No Current occupational status: employed Meds Allergies Allergy/AdvReac Type Severity Reaction Status Date / Time passion fruit [PASSION FRUIT] Allergy Unknown UNK Verified 06/22/21 13:43 Active Medications: Current Medications Enoxaparin Sodium (Enoxaparin Sodium 40 Mg/0.4 Ml Syringe) 40 mg SUBCUT Q24H DESTINY Insulin Human Regular (Myxredlin) 100 unit in 100 mls @ 0 mls/hr IVCONT .Q0M DESTINY; Protocol Dextrose/Lactated Ringer's (D5lr) 1,000 mls @ 150 mls/hr IVCONT .Q6H40M DESTINY Last Admin: 06/22/21 19:43 Dose: 150 mls/hr Documented by: Ondansetron HCl (Ondansetron Hcl 4 Mg/2 Ml Vial) 4 mg IVPUSH Q8H PRN PRN Reason: Nausea Home Medications Medication Instructions Recorded Confirmed Last Taken Type insulin lispro protamine-lispro 45 unit SUBCUT BID 04/03/21 05/24/21 05/24/21 History 100 unit/mL (75-25) subcutaneous susp (Humalog Mix 75-25(U-100)Insuln) Physical Exam Vital Signs: Vital Signs: Last Vital Signs Temp 98.1 F 06/22/21 20:10 Pulse 96 06/22/21 20:10 Resp 18 06/22/21 20:10 BP 151/93 H 06/22/21 20:10 Pulse Ox 98 06/22/21 20:10 Body Mass Index 24.2 Cardiac: Regular rate and rhythm, Normal peripheral perfusion, No edema.??Normal cap refill Respiratory:? Lungs are clear to auscultation, respirations are non-labored.?? Gastrointestinal:? Soft, Nontender, Non distended, Normal bowel sounds.?? Back:? Nontender, Normal range of motion, Normal alignment.?? Musculoskeletal:? Normal ROM, normal strength, no tenderness, no swelling, no deformity.?? Neurological:? Alert and oriented to person, place, time, and situation, No focal neurological deficit observed.?? Lymphatics:? No lymphadenopathy.? Psychiatric:?Cooperative, appropriate mood & affect, normal judgment.?? Results Labs CBC and Chem 7: 06/22/21 16:55 06/22/21 16:55 Labs: Laboratory Results - last 24 hr 06/22/21 06/22/21 06/22/21 13:49 16:55 16:55 MCV 86.5 MCH 28.8 MCHC 33.3 RDW 12.1 Plt Count 312 D MPV 10.3 Immature Gran % (Auto) 0.5 H Neut % (Auto) 82.3 H Lymph % (Auto) 8.1 L [place] % (Auto) 8.8 Eos % (Auto) 0.1 Baso % (Auto) 0.2 Lymph # (Auto) 1.3 [place] # (Auto) 1.4 H Eos # (Auto) 0.0 Baso # (Auto) 0.0 Abs Immat Gran (auto) 0.07 H Absolute Neuts (auto) 12.8 H Absolute Nucleated RBC 0.000 Nucleated RBC % (auto) 0.0 Anion Gap 30 H Estim Creat Clear Calc 66.6 Estimated GFR 56 POC Glucose 343 H Random Glucose 396 H* Lactic Acid Lactic Acid Fup @ 2Hr Calcium 9.4 Total Bilirubin 1.0 AST 17 D ALT 15 Alkaline Phosphatase 84 D Total Protein 7.9 Albumin 4.6 Lipase 13 Acetone, Qual Small H 06/22/21 06/22/21 06/22/21 16:55 17:06 17:54 MCV MCH MCHC RDW Plt Count MPV Immature Gran % (Auto) Neut % (Auto) Lymph % (Auto) [place] % (Auto) Eos % (Auto) Baso % (Auto) Lymph # (Auto) [place] # (Auto) Eos # (Auto) Baso # (Auto) Abs Immat Gran (auto) Absolute Neuts (auto) Absolute Nucleated RBC Nucleated RBC % (auto) Anion Gap Estim Creat Clear Calc Estimated GFR POC Glucose 356 H* 276 H Random Glucose Lactic Acid 3.0 H* Lactic Acid Fup @ 2Hr Calcium Total Bilirubin AST ALT Alkaline Phosphatase Total Protein Albumin Lipase Acetone, Qual 06/22/21 06/22/21 19:26 19:48 MCV MCH MCHC RDW Plt Count MPV Immature Gran % (Auto) Neut % (Auto) Lymph % (Auto) [place] % (Auto) Eos % (Auto) Baso % (Auto) Lymph # (Auto) [place] # (Auto) Eos # (Auto) Baso # (Auto) Abs Immat Gran (auto) Absolute Neuts (auto) Absolute Nucleated RBC Nucleated RBC % (auto) Anion Gap Estim Creat Clear Calc Estimated GFR POC Glucose 208 H Random Glucose Lactic Acid Lactic Acid Fup @ 2Hr 2.1 H* Calcium Total Bilirubin AST ALT Alkaline Phosphatase Total Protein Albumin Lipase Acetone, Qual Assessment and Plan (1) Diabetic keto-acidosis: Qualifiers: Diabetes mellitus complication detail: without coma Diabetes mellitus type: type 1 Qualified Code(s): E10.10 - Type 1 diabetes mellitus with ketoacidosis without coma Status: Acute Neuro:? no acute issues?? Cardiac:? Elevated lactic: ?This is likely due to dehydration due to DKA/vomiting.? No evidence of severe sepsis Pulmonary:? no acute issues?? Renal:? GISSELLE- ? most likely related to hypoperfusion, nonoliguric.? Continue IV fluid.? Continue to check renal induces and urine output GI:?? nausea and vomiting from? gastroparesis. ?Patient does admit to using marijuana, that he abstains from ?the streets?, this is likely the cause of the nausea and vomiting. Continue Zofran p.r.n.,? Endo:??? type 1 diabetes /diabetic ketoacidosis-? likely cause due to Street use marijuana and heavily drinking.? continue insulin drip until her gap is close. Follow DKA protocol? ID: leukocytosis- no evidence for infection, this is likely cause due to several days of vomiting.? Continue to trend CBC Heme/Onc:? No acute issues. Psych:? No acute issues. Miscellaneous:? No acute issues.? Prophylaxis:? Lovenox, no GI prophylaxis Diet: ? NPO? with sips of water ice chips Critical care time: 60x minutes of critical care time? CODE: FULL Case discussed with attending Dr. Kuhn ? (2) GISSELLE (acute kidney injury): Status: Resolved (3) Gastroparesis: Status: Inactive (4) Leukocytosis: Status: Acute
[2021-06-22 20:59] LABS: Glucose, Whole Blood 262 mg/dL (60-115)
--- NOTE | 2021-06-22 21:10 | PC.NURSE ---
POC 262 per protocol increase insulin rate by 2 units/hr--increased from 2units to 4units/ hour this nurse verified with ICU provider about increased rate, rate increase ok per provider
--- NOTE | 2021-06-22 21:25 | PC.NURSE ---
nurse to nurse report given to Johanna MARQUEZ
[2021-06-22 21:51] LABS: COVID-19 Test Negative (Negative); IDNOW Serial# 9DD0AD1C
[2021-06-22 21:52] LABS: Reflex Lactate? 2 Y
[2021-06-22 22:00] VITALS: BP 139/96; PULSE 101; RESP 17; TEMP 37.5; O2SAT 100
[2021-06-22 22:16] LABS: Glucose, Whole Blood 248 mg/dL (60-115)
--- NOTE | 2021-06-22 22:27 | PC.NURSE ---
Addendum entered by Adrian Antunez RN 06/23/21 06:30: 30 unit subq lantus given @ 0628. Addendum entered by Adrian Antunez RN 06/23/21 06:12: Titrated drip per protocol & per Nikolai Amaya [employer] - Vitals stable. Patient c/o trouble sleeping - Nikolai REYES ordered PRN trazadone - given @ 2257 with good affect. Patient had one episode of vomiting - clear emesis - 100ml - PRN zofran given with good affect @ 0414. Labs redrawn x2, gap closed. Lantus ordered to be given now and plan to stop drip in one hour after lantus admin. Original Note: Received from ER at approx 2210 via stretcher to 262. Patient calm cooperative. Blood sugar done & labs when arrival to floor. Patient reports daily marijuana use & recently celebrating his birthday & drinking on occasions, but not daily. Patient reports taking insulin at home, but not always being compliant with checking blood sugar levels at home. Insulin drip running at 4 unit/hr from ER.
[2021-06-22 22:34] LABS: Venous Blood Gas Refer to POC result
[2021-06-22 22:37] LABS: VBG Base Excess -7.5 mmol/L; VBG HCO3 16 mmol/L (22-26); VBG pCO2 28 mmHg; VBG pH 7.35 (7.32-7.43); VBG pO2 54 mmHg
[2021-06-22 22:49] LABS: ~Lactic Acid-LAB USE ONLY 1.2 mmol/L (0.5-2.0)
[2021-06-22] MEDS: Enoxaparin Sodium 40 MG/0.4 ML SYRINGE SUBCUT (22:53)
[2021-06-22 22:57] LABS: Anion Gap 14 (12-20); Blood Urea Nitrogen 11 mg/dL (9-16); Calcium 8.5 mg/dL (8.4-10.2); Carbon Dioxide 18 mmol/L (22-29); Chloride 107 mmol/L (96-108); Creatinine Clr Calc Pharmacy 86.3; Estimated Glomerular Filt Rate > 60; Glucose Random 252 mg/dL (60-115); Potassium 3.8 mmol/L (3.3-5.1); Sodium 135 mmol/L (135-145)
[2021-06-22] MEDS: traZODone HCL 25 MG HALFTAB PO (22:57)
[2021-06-22 23:00] VITALS: BP 133/84; PULSE 121; RESP 18; O2SAT 99
[2021-06-22 23:10] LABS: Glucose, Whole Blood 192 mg/dL (60-115)
[2021-06-22 23:58] VITALS: BP 133/84; PULSE 99; RESP 19; TEMP 37.3; O2SAT 98
[2021-06-23] VITALS (14 sets, daily range): BP systolic 110–146; BP diastolic 54–103; PULSE 66–101; RESP 10–23; TEMP 36.3–37.1; O2SAT 95–99; BMI 23.6
[2021-06-23 00:04] LABS: Glucose, Whole Blood 151 mg/dL (60-115)
[2021-06-23 01:56] LABS: Glucose, Whole Blood 90 mg/dL (60-115)
[2021-06-23] MEDS: Dextrose 5 % and Lactated Ring 1,000 ML 150 ML IVCONT (02:33)
[2021-06-23 04:03] LABS: Glucose, Whole Blood 87 mg/dL (60-115)
[2021-06-23] MEDS: ondansetron HCL 4 MG/2 ML VIAL IVPUSH ×2 (04:14→20:24)
[2021-06-23 05:35] LABS: MANUAL DIFF FLAG NO
[2021-06-23 05:37] LABS: VBG Base Excess -4.1 mmol/L; VBG HCO3 18 mmol/L (22-26); VBG pCO2 28 mmHg; VBG pH 7.42 (7.32-7.43); VBG pO2 77 mmHg
[2021-06-23 05:50] LABS: Basophils Percent Auto 0.2 % (0-2); Eosinophils Percent Auto 0.2 % (0-4); Hematocrit 39.7 % (42.0-52.0); Hemoglobin 13.8 g/dl (14.0-18.0); Imm Gran Abs Auto 0.03 X10*3/uL (0.00-0.03); Imm Gran Pct Auto 0.3 % (0.0-0.4); Lymphocytes Absolute Auto 1.3 X10*3/uL (1.2-4.9); Lymphocytes Percent Auto 13.4 % (20-40); Mean Corpuscular HGB Conc 34.8 g/dl (31.0-36.0); Mean Corpuscular Hemoglobin 29.1 pg (27.0-33.0); Mean Corpuscular Volume 83.6 fL (80.0-98.0); Mean Platelet Volume 9.7 fL (9.4-12.4); Monocytes Absolute Auto 1.3 X10*3/uL (0.1-1.2); Monocytes Percent Auto 13.2 % (2-11); Neutrophils Absolute Auto 7.2 x10*3/uL (2.0-8.3); Neutrophils Percent Auto 72.7 % (45-73); Platelet Count 241 X10*3/uL (160-400); Red Blood Count 4.75 X10*6/uL (4.60-5.80); Red Cell Distribution Width 11.9 % (11.0-16.0); White Blood Count 9.9 X10*3/uL (4.8-10.8)
[2021-06-23 06:01] LABS: Alanine Aminotransferase 9 U/L (0-40); Albumin Level 3.4 g/dL (3.5-5.0); Alkaline Phosphatase 54 U/L (39-117); Anion Gap 6 (12-20); Aspartate Amino Transferase 7 U/L (5-37); Bilirubin Total 0.6 mg/dL (0.0-1.0); Blood Urea Nitrogen 8 mg/dL (9-16); Calcium 8.2 mg/dL (8.4-10.2); Carbon Dioxide 23 mmol/L (22-29); Chloride 109 mmol/L (96-108); Creatinine Clr Calc Pharmacy 117.1; Estimated Glomerular Filt Rate > 60; Glucose Random 99 mg/dL (60-115); Magnesium 2.1 mg/dL (1.6-2.6); Phosphorus 1.1 mg/dL (2.7-4.5); Potassium 3.3 mmol/L (3.3-5.1); Sodium 135 mmol/L (135-145); Total Protein 5.4 g/dL (6.5-8.0)
[2021-06-23] MEDS: Insulin Glargine,Hum.rec.anlog 100 UNIT/ML 10 ML VIAL 30 UNIT SUBCUT ×2 (06:28→11:03)
[2021-06-23 07:01] LABS: Venous Blood Gas Refer to POC result
[2021-06-23 07:30] LABS: Glucose, Whole Blood 116 mg/dL (60-115)
[2021-06-23] MEDS: Potassium Phosphate 30 MMOL in 0.9 % Sodium Chloride 500 ML 85 MMOL IV (08:46)
[2021-06-23 10:19] LABS: Anion Gap 13 (12-20); Blood Urea Nitrogen 7 mg/dL (9-16); Calcium 8.1 mg/dL (8.4-10.2); Carbon Dioxide 21 mmol/L (22-29); Chloride 106 mmol/L (96-108); Creatinine Clr Calc Pharmacy 100.8; Estimated Glomerular Filt Rate > 60; Glucose Random 185 mg/dL (60-115); Potassium 3.7 mmol/L (3.3-5.1); Sodium 136 mmol/L (135-145)
--- NOTE | 2021-06-23 10:29 | MHC.CM.PN ---
Met with pt to discuss d/c planning: pt states he is independent with care needs, works and has no service needs: Discussed DM management to avoid further episodes of DKA : pt states he has been a diabetic for a long time and understands management. Pt will call family for transportation. HCP declined
--- NOTE | 2021-06-23 10:56 | P.PNCC_ITS ---
Subjective Subjective Date of Service: 06/23/21 Interval History: 26-year-old gentleman with underlying type 1 diabetes mellitus and gastroparesis admitted on 06/22/2021 with abdominal discomfort and diabetic ketoacidosis on the background of worsening gastroparesis symptoms for the last week. Patient has been started on insulin drip and admitted to intensive care unit. Overnight titrated off insulin drip. Abdominal discomfort resolved. Critical Care Time (minutes): 0 Physical Exam Vital Signs: Vital Signs: Last Vital Signs Temp 97.8 F 06/23/21 08:00 Pulse 101 H 06/23/21 10:00 Resp 17 06/23/21 10:00 BP 135/89 06/23/21 10:00 Pulse Ox 99 06/23/21 10:00 Body Mass Index 23.6 Const: General: no acute distress, alert and awake Eyes: Sclerae: sclerae normal EOM: EOMs intact bilaterally Neck: Neck: Yes no lymphadenopathy, Yes trachea midline and Yes supple Resp: Effort & Inspection: normal respiratory effort and no respiratory distress Auscultation: clear to auscultation bilaterally Cardio: Rate: regular rate Rhythm: regular rhythm Heart sounds: no gallops, no murmurs and no rubs GI: Palpation (GI): Soft to palpation and Other GI palpation findings present ( Nontender) Auscultation: normal bowel sounds Extrem: General: Yes no pedal edema, No clubbing and No cyanosis Objective Data Labs CBC & Chem 7: 06/23/21 05:28 06/23/21 09:58 Labs: Laboratory Results - last 24 hr 06/22/21 06/22/21 06/22/21 13:49 16:55 16:55 WBC 15.5 H RBC 5.98 H Hgb 17.2 Hct 51.7 MCV 86.5 MCH 28.8 MCHC 33.3 RDW 12.1 Plt Count 312 D MPV 10.3 Immature Gran % (Auto) 0.5 H Neut % (Auto) 82.3 H Lymph % (Auto) 8.1 L [place] % (Auto) 8.8 Eos % (Auto) 0.1 Baso % (Auto) 0.2 Lymph # (Auto) 1.3 [place] # (Auto) 1.4 H Eos # (Auto) 0.0 Baso # (Auto) 0.0 Abs Immat Gran (auto) 0.07 H Absolute Neuts (auto) 12.8 H Absolute Nucleated RBC 0.000 Nucleated RBC % (auto) 0.0 VBG pH VBG pCO2 VBG pO2 VBG HCO3 VBG O2 Saturation VBG Base Excess Sodium 132 L Potassium 4.9 D Chloride 99 Carbon Dioxide 8 L* D Anion Gap 30 H BUN 15 Creatinine 1.53 H Estim Creat Clear Calc 66.6 Estimated GFR 56 POC Glucose 343 H Random Glucose 396 H* Lactic Acid Lactic Acid Fup @ 2Hr Lactic Acid Fup @ 4Hr Calcium 9.4 Phosphorus Magnesium Total Bilirubin 1.0 AST 17 D ALT 15 Alkaline Phosphatase 84 D Total Protein 7.9 Albumin 4.6 Lipase 13 Acetone, Qual Small H COVID-19 (EARLINE) COVID-[employer] 06/22/21 06/22/21 06/22/21 16:55 17:06 17:54 WBC RBC Hgb Hct MCV MCH MCHC RDW Plt Count MPV Immature Gran % (Auto) Neut % (Auto) Lymph % (Auto) [place] % (Auto) Eos % (Auto) Baso % (Auto) Lymph # (Auto) [place] # (Auto) Eos # (Auto) Baso # (Auto) Abs Immat Gran (auto) Absolute Neuts (auto) Absolute Nucleated RBC Nucleated RBC % (auto) VBG pH VBG pCO2 VBG pO2 VBG HCO3 VBG O2 Saturation VBG Base Excess Sodium Potassium Chloride Carbon Dioxide Anion Gap BUN Creatinine Estim Creat Clear Calc Estimated GFR POC Glucose 356 H* 276 H Random Glucose Lactic Acid 3.0 H* Lactic Acid Fup @ 2Hr Lactic Acid Fup @ 4Hr Calcium Phosphorus Magnesium Total Bilirubin AST ALT Alkaline Phosphatase Total Protein Albumin Lipase Acetone, Qual COVID-19 (EARLINE) COVID[employer] 06/22/21 06/22/21 06/22/21 19:26 19:48 20:55 WBC RBC Hgb Hct MCV MCH MCHC RDW Plt Count MPV Immature Gran % (Auto) Neut % (Auto) Lymph % (Auto) [place] % (Auto) Eos % (Auto) Baso % (Auto) Lymph # (Auto) [place] # (Auto) Eos # (Auto) Baso # (Auto) Abs Immat Gran (auto) Absolute Neuts (auto) Absolute Nucleated RBC Nucleated RBC % (auto) VBG pH VBG pCO2 VBG pO2 VBG HCO3 VBG O2 Saturation VBG Base Excess Sodium Potassium Chloride Carbon Dioxide Anion Gap BUN Creatinine Estim Creat Clear Calc Estimated GFR POC Glucose 208 H 262 H Random Glucose Lactic Acid Lactic Acid Fup @ 2Hr 2.1 H* Lactic Acid Fup @ 4Hr Calcium Phosphorus Magnesium Total Bilirubin AST ALT Alkaline Phosphatase Total Protein Albumin Lipase Acetone, Qual COVID-19 (EARLINE) COVID-[employer] 06/22/21 06/22/21 06/22/21 21:30 22:11 22:27 WBC RBC Hgb Hct MCV MCH MCHC RDW Plt Count MPV Immature Gran % (Auto) Neut % (Auto) Lymph % (Auto) [place] % (Auto) Eos % (Auto) Baso % (Auto) Lymph # (Auto) [place] # (Auto) Eos # (Auto) Baso # (Auto) Abs Immat Gran (auto) Absolute Neuts (auto) Absolute Nucleated RBC Nucleated RBC % (auto) VBG pH VBG pCO2 VBG pO2 VBG HCO3 VBG O2 Saturation VBG Base Excess Sodium 135 Potassium 3.8 D Chloride 107 Carbon Dioxide 18 L Anion Gap 14 BUN 11 Creatinine 1.18 Estim Creat Clear Calc 86.3 Estimated GFR > 60 POC Glucose 248 H Random Glucose 252 H D Lactic Acid Lactic Acid Fup @ 2Hr Lactic Acid Fup @ 4Hr Calcium 8.5 D Phosphorus Magnesium Total Bilirubin AST ALT Alkaline Phosphatase Total Protein Albumin Lipase Acetone, Qual COVID-19 (EARLINE) Negative COVID-19 [employer] See Note 06/22/21 06/22/21 06/22/21 22:27 22:30 23:07 WBC RBC Hgb Hct MCV MCH MCHC RDW Plt Count MPV Immature Gran % (Auto) Neut % (Auto) Lymph % (Auto) [place] % (Auto) Eos % (Auto) Baso % (Auto) Lymph # (Auto) [place] # (Auto) Eos # (Auto) Baso # (Auto) Abs Immat Gran (auto) Absolute Neuts (auto) Absolute Nucleated RBC Nucleated RBC % (auto) VBG pH 7.35 VBG pCO2 28 VBG pO2 54 VBG HCO3 16 L VBG O2 Saturation 83.0 VBG Base Excess -7.5 Sodium Potassium Chloride Carbon Dioxide Anion Gap BUN Creatinine Estim Creat Clear Calc Estimated GFR POC Glucose 192 H Random Glucose Lactic Acid Lactic Acid Fup @ 2Hr Lactic Acid Fup @ 4Hr 1.2 Calcium Phosphorus Magnesium Total Bilirubin AST ALT Alkaline Phosphatase Total Protein Albumin Lipase Acetone, Qual COVID-19 (EARLINE) COVID-19 [employer] 06/23/21 06/23/21 06/23/21 00:00 01:51 03:58 WBC RBC Hgb Hct MCV MCH MCHC RDW Plt Count MPV Immature Gran % (Auto) Neut % (Auto) Lymph % (Auto) [place] % (Auto) Eos % (Auto) Baso % (Auto) Lymph # (Auto) [place] # (Auto) Eos # (Auto) Baso # (Auto) Abs Immat Gran (auto) Absolute Neuts (auto) Absolute Nucleated RBC Nucleated RBC % (auto) VBG pH VBG pCO2 VBG pO2 VBG HCO3 VBG O2 Saturation VBG Base Excess Sodium Potassium Chloride Carbon Dioxide Anion Gap BUN Creatinine Estim Creat Clear Calc Estimated GFR POC Glucose 151 H 90 87 Random Glucose Lactic Acid Lactic Acid Fup @ 2Hr Lactic Acid Fup @ 4Hr Calcium Phosphorus Magnesium Total Bilirubin AST ALT Alkaline Phosphatase Total Protein Albumin Lipase Acetone, Qual COVID-19 (EARLINE) COVID-19 [employer] 06/23/21 06/23/21 06/23/21 05:28 05:28 05:31 WBC 9.9 RBC 4.75 D Hgb 13.8 L Hct 39.7 L D MCV 83.6 MCH 29.1 MCHC 34.8 RDW 11.9 Plt Count 241 MPV 9.7 Immature Gran % (Auto) 0.3 Neut % (Auto) 72.7 Lymph % (Auto) 13.4 L [place] % (Auto) 13.2 H Eos % (Auto) 0.2 Baso % (Auto) 0.2 Lymph # (Auto) 1.3 [place] # (Auto) 1.3 H Eos # (Auto) 0.0 Baso # (Auto) 0.0 Abs Immat Gran (auto) 0.03 Absolute Neuts (auto) 7.2 Absolute Nucleated RBC 0.000 Nucleated RBC % (auto) 0.0 VBG pH 7.42 VBG pCO2 28 VBG pO2 77 VBG HCO3 18 L VBG O2 Saturation 95.0 VBG Base Excess -4.1 Sodium 135 Potassium 3.3 Chloride 109 H Carbon Dioxide 23 Anion Gap 6 L BUN 8 L Creatinine 0.87 Estim Creat Clear Calc 117.1 Estimated GFR > 60 POC Glucose Random Glucose 99 D Lactic Acid Lactic Acid Fup @ 2Hr Lactic Acid Fup @ 4Hr Calcium 8.2 L Phosphorus 1.1 L Magnesium 2.1 Total Bilirubin 0.6 AST 7 D ALT 9 Alkaline Phosphatase 54 D Total Protein 5.4 L D Albumin 3.4 L D Lipase Acetone, Qual COVID-19 (EARLINE) COVID-19 [employer] 06/23/21 06/23/21 07:27 09:58 WBC RBC Hgb Hct MCV MCH MCHC RDW Plt Count MPV Immature Gran % (Auto) Neut % (Auto) Lymph % (Auto) [place] % (Auto) Eos % (Auto) Baso % (Auto) Lymph # (Auto) [place] # (Auto) Eos # (Auto) Baso # (Auto) Abs Immat Gran (auto) Absolute Neuts (auto) Absolute Nucleated RBC Nucleated RBC % (auto) VBG pH VBG pCO2 VBG pO2 VBG HCO3 VBG O2 Saturation VBG Base Excess Sodium 136 Potassium 3.7 Chloride 106 Carbon Dioxide 21 L Anion Gap 13 BUN 7 L Creatinine 1.01 Estim Creat Clear Calc 100.8 Estimated GFR > 60 POC Glucose 116 H Random Glucose 185 H D Lactic Acid Lactic Acid Fup @ 2Hr Lactic Acid Fup @ 4Hr Calcium 8.1 L Phosphorus Magnesium Total Bilirubin AST ALT Alkaline Phosphatase Total Protein Albumin Lipase Acetone, Qual COVID-19 (EARLINE) COVID-19 Clin Com Progress Note: A&P Assessment and plan (1) Diabetic keto-acidosis: Status: Acute (2) Gastroparesis: Status: Acute Assessment and Plan: Assessment: 26-year-old gentleman with underlying gastroparesis and type 1 diabetes mellitus admitted with diabetic ketoacidosis. Plan: Neuro: No acute issues. Cardiac: No acute issues. Pulmonary: No acute issues. Renal: Acute renal failure secondary to diabetic ketoacidosis, resolved. Continue to monitor renal indices and urine output. Endo: Diabetic ketoacidosis on the background of gastroparesis with poor p.o. intake and suboptimal insulin use, treated with insulin drip, now titrated off insulin drip. Continue with subcutaneous insulin. GI: No acute issues. Chronic gastroparesis. ID: No acute issues Heme/Onc: No acute issues. Psych: No acute issues. Miscellaneous: No acute issues. Prophylaxis: Heparin Diet: Diabetic Quality Stroke Does the patient have a stroke diagnosis?: No VTE Prior VTE?: No VTE Risk Level:: Medical - low VTE Device Contraindication: Treatment Not Indicated VTE Drug Contraindication: N/A - Med Ordered
[2021-06-23 11:26] LABS: Glucose, Whole Blood 194 mg/dL (60-115)
[2021-06-23] MEDS: Insulin Lispro 100 UNIT/ML 3 ML VIAL SUBCUT ×2 (11:45→17:16)
[2021-06-23 17:05] LABS: Glucose, Whole Blood 193 mg/dL (60-115)
[2021-06-23 19:31] LABS: Anion Gap 10 (12-20); Blood Urea Nitrogen 6 mg/dL (9-16); Calcium 8.6 mg/dL (8.4-10.2); Carbon Dioxide 25 mmol/L (22-29); Chloride 103 mmol/L (96-108); Estimated Glomerular Filt Rate > 60; Glucose Random 149 mg/dL (60-115); Potassium 3.4 mmol/L (3.3-5.1); Sodium 135 mmol/L (135-145)
[2021-06-23] MEDS: Metoclopramide HCl 5 MG TABLET PO (20:12)
[2021-06-23] MEDS: Enoxaparin Sodium 40 MG/0.4 ML SYRINGE SUBCUT (20:13)
[2021-06-23] MEDS: traZODone HCL 25 MG HALFTAB PO (20:13)
[2021-06-23 20:51] LABS: Glucose, Whole Blood 142 mg/dL (60-115)
[2021-06-24] VITALS (7 sets, daily range): BP systolic 118–158; BP diastolic 71–96; PULSE 64–80; RESP 17–18; TEMP 36.2–37.1; O2SAT 98–100
[2021-06-24] MEDS: Ketorolac Tromethamine 15 MG/ML VIAL IVPUSH (00:30)
--- NOTE | 2021-06-24 00:58 | MHC.PIE ---
P: Pt c/o unrelieved abd pain 05/17 at 0993. I: Dr. Pepper was paged and ordered Toradol 15 mg IV at 1008 E: Pt tried taking warm shower with some relief ,Toradol 15 mg IV given, will cont to ff up.
[2021-06-24 06:05] LABS: MANUAL DIFF FLAG NO
[2021-06-24 06:09] LABS: Basophils Percent Auto 0.2 % (0-2); Eosinophils Percent Auto 0.5 % (0-4); Hematocrit 40.7 % (42.0-52.0); Hemoglobin 13.9 g/dl (14.0-18.0); Imm Gran Abs Auto 0.01 X10*3/uL (0.00-0.03); Imm Gran Pct Auto 0.2 % (0.0-0.4); Lymphocytes Absolute Auto 1.8 X10*3/uL (1.2-4.9); Lymphocytes Percent Auto 27.9 % (20-40); Mean Corpuscular HGB Conc 34.2 g/dl (31.0-36.0); Mean Corpuscular Hemoglobin 28.6 pg (27.0-33.0); Mean Corpuscular Volume 83.7 fL (80.0-98.0); Mean Platelet Volume 9.8 fL (9.4-12.4); Monocytes Percent Auto 15.5 % (2-11); Neutrophils Absolute Auto 3.6 x10*3/uL (2.0-8.3); Neutrophils Percent Auto 55.7 % (45-73); Platelet Count 231 X10*3/uL (160-400); Red Blood Count 4.86 X10*6/uL (4.60-5.80); White Blood Count 6.5 X10*3/uL (4.8-10.8)
[2021-06-24 06:27] LABS: Anion Gap 10 (12-20); Blood Urea Nitrogen 6 mg/dL (9-16); Calcium 8.4 mg/dL (8.4-10.2); Carbon Dioxide 26 mmol/L (22-29); Chloride 105 mmol/L (96-108); Creatinine Clr Calc Pharmacy 121.3; Estimated Glomerular Filt Rate > 60; Glucose Random 91 mg/dL (60-115); Phosphorus 2.8 mg/dL (2.7-4.5); Potassium 3.3 mmol/L (3.3-5.1); Sodium 138 mmol/L (135-145)
--- NOTE | 2021-06-24 07:54 | PM.DS ---
DS: Providers Provider Date of Service: 06/25/21 Date of admission: 06/22/21 19:24 Date of discharge: 06/25/21 Primary care physician: Papi Olivo MD DS: Diagnosis Discharge Diagnosis (1) Diabetic keto-acidosis: Status: Acute (2) Gastroparesis: Status: Acute DS: Summary Hospital Course Hospital Course: Date of service and date of discharge is 06/25/21. 26-year-old male past medical history type 1 diabetes and gastroparesis who comes in after vomiting x 4days.? He does admit to smoking marijuana and drinking heavily on his birthday celebrations. Denies any fevers chills diarrhea.? He reports compliance with Humalog/NovoLog mix insulin, but due to nausea and vomiting has not been able to eat much food in last couple of days.? Labs significant for WBC 15.5,?serum sodium 132, CO2 8, and anion gap 30, BUN 15, creatinine 1.53 and glucose 396. Lactic acid 3 In the ED he received a total of 15 of IV insulin, 2 L normal saline bolus, and Reglan. ?And later started on insulin drip He will be admitted into the ICU for management of DKA required insulin drip. Hospital course: Patient came with diabetic ketoacidosis, probably related to poor oral intake over the past week, treated with IV insulin in ICU, hydration,also received metoclopramide- currently seems to be improved, switched to his home insulin regimen upon discharge. Probably has abdominal discomfort initially was thought to be due to gastroparesis but due to persistent pain patient was seen by GI-patient had Egd-found to have erosive esophagitis/duodenal ulcer,Biopsy sent by GI. Patient is to follow up with GI out patiently for above. Patient was advised to avoid aspirin/NSAIDs, and blood thinners. Also encouraged to avoid fried and fast food. 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 Above management discussed with the patient in detail length he understand and in agreement with the above plan, time spent 50 minutes and 50% time spent on counseling. Significant findings: As above. Procedures performed: None. Treatment and response: As above. Complications: None. Time Spent with Patient Time attestation: Total time spent providing and/or coordinating discharge services: Discharge coordination time: Greater than 30 minutes Quality: Stroke Does the patient have a stroke diagnosis?: No Physical Exam Vital Signs: Vital Signs: Last Vital Signs Temp 97.1 F 06/24/21 04:00 Pulse 76 06/24/21 04:00 Resp 18 06/24/21 04:00 BP 122/76 06/24/21 04:00 Pulse Ox 98 06/24/21 04:00 Body Mass Index 23.6 Physical exam: Appearance: Alert.? Oriented X3.? not in distress.? Eyes: Pupils equal, round and reactive to light.? Sclera nonicteric.? ENT: Pharynx normal.? Moist mucous membranes. cvs: rrr, [id number] , no murmur res: clear to auscultation ,no rhonchii or wheezing abd: no rebound or guarding ,nt, bs present. ext pulses present , no cyanosis ,Gait well balanced well coordinated. neuro: axo3 , nonfocal. DS: Data Data Completed and Pending Labs on day of discharge: Laboratory Results - last 24 hr 06/23/21 06/23/21 06/23/21 09:58 11:23 17:01 WBC RBC Hgb Hct MCV MCH MCHC RDW Plt Count MPV Immature Gran % (Auto) Neut % (Auto) Lymph % (Auto) [place] % (Auto) Eos % (Auto) Baso % (Auto) Lymph # (Auto) [place] # (Auto) Eos # (Auto) Baso # (Auto) Abs Immat Gran (auto) Absolute Neuts (auto) Absolute Nucleated RBC Nucleated RBC % (auto) Sodium 136 Potassium 3.7 Chloride 106 Carbon Dioxide 21 L Anion Gap 13 BUN 7 L Creatinine 1.01 Estim Creat Clear Calc 100.8 Estimated GFR > 60 POC Glucose 194 H 193 H Random Glucose 185 H D Calcium 8.1 L Phosphorus Magnesium 06/23/21 06/23/21 06/24/21 19:08 19:41 05:59 WBC 6.5 RBC 4.86 Hgb 13.9 L Hct 40.7 L MCV 83.7 MCH 28.6 MCHC 34.2 RDW 12.0 Plt Count 231 MPV 9.8 Immature Gran % (Auto) 0.2 Neut % (Auto) 55.7 Lymph % (Auto) 27.9 [place] % (Auto) 15.5 H Eos % (Auto) 0.5 Baso % (Auto) 0.2 Lymph # (Auto) 1.8 [place] # (Auto) 1.0 Eos # (Auto) 0.0 Baso # (Auto) 0.0 Abs Immat Gran (auto) 0.01 Absolute Neuts (auto) 3.6 Absolute Nucleated RBC 0.000 Nucleated RBC % (auto) 0.0 Sodium 135 Potassium 3.4 Chloride 103 Carbon Dioxide 25 Anion Gap 10 L BUN 6 L Creatinine 0.97 Estim Creat Clear Calc 105.0 Estimated GFR > 60 POC Glucose 142 H Random Glucose 149 H Calcium 8.6 D Phosphorus Magnesium 06/24/21 05:59 WBC RBC Hgb Hct MCV MCH MCHC RDW Plt Count MPV Immature Gran % (Auto) Neut % (Auto) Lymph % (Auto) [place] % (Auto) Eos % (Auto) Baso % (Auto) Lymph # (Auto) [place] # (Auto) Eos # (Auto) Baso # (Auto) Abs Immat Gran (auto) Absolute Neuts (auto) Absolute Nucleated RBC Nucleated RBC % (auto) Sodium 138 Potassium 3.3 Chloride 105 Carbon Dioxide 26 Anion Gap 10 L BUN 6 L Creatinine 0.84 Estim Creat Clear Calc 121.3 Estimated GFR > 60 POC Glucose Random Glucose 91 D Calcium 8.4 Phosphorus 2.8 Magnesium 2.0 Discharge Plan Discharge Patient Disposition: Home, Self-Care Discharge Diagnosis: dm ketoacidosis , gasteroparesis Referrals: Papi Olivo MD [Primary Care Provider] - 1 Week Jatin Dick [Physician] - 1 Week (Follow-up outpatient.) Discharge Medications: New omeprazole 40 mg capsule,delayed release(DR/EC) 40 mg PO BID Qty: 60 RF: 0 metoclopramide HCl 5 mg Tablet 5 mg PO BID PRN (Reason: nausea) Qty: 10 RF: 0 Continued Humalog Mix 75-25(U-100)Insuln 100 unit/mL (75-25) suspension 45 unit subcut BID RF: 0 Discharge Orders: Discharge Order (Routine); Ordered 06/25/21 Ordered By: Davy Carlisle Diet: advance to usual diet and diabetic diet Activity on Discharge: As tolerated Stand Alone Forms: Patient Portal Discharge page Care Plan Goals: Patient came with diabetic ketoacidosis, probably related to poor oral intake over the past week, with IV insulin in ICU, also received metoclopramide- currently seems to be improved, switched to his home regimen. Probably has abdominal discomfort initially was thought to be due to gastroparesis but due to persistent pain patient was seen by GI-patient had Egd-found to have erosive esophagitis/duodenal ulcer,Biopsy sent by GI. Patient is to follow up with GI out patiently for above. Patient was advised to avoid aspirin/NSAIDs, and blood thinners. Also encouraged to avoid fried and fast food. 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 Health Concerns: As above. Plan of Treatment: As above. Assessment: As above.
[2021-06-24 08:52] LABS: Glucose, Whole Blood 89 mg/dL (60-115)
[2021-06-24] MEDS: ondansetron HCL 4 MG/2 ML VIAL IVPUSH (09:10)
[2021-06-24] MEDS: Potassium Chloride Packet 20 MEQ PACKET PO (09:11)
--- NOTE | 2021-06-24 09:28 | MHC.CM.PN ---
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
[2021-06-24] MEDS: Metoclopramide HCl 10 MG/2 ML VIAL IVPUSH (10:13)
[2021-06-24] MEDS: Omeprazole 20 MG CAPSULE.DR PO (10:13)
[2021-06-24] MEDS: Ketorolac Tromethamine 15 MG/ML VIAL 30 MG IVPUSH (10:13)
[2021-06-24 12:13] LABS: Glucose, Whole Blood 118 mg/dL (60-115)
--- NOTE | 2021-06-24 14:46 | HO.PM.IMPN ---
Subjective Subjective Date of Service: 06/24/21 Interval History: Diabetic ketoacidosis, gastroparesis, poor oral intake Review of Systems Patient says that he has some abdominal discomfort Denies any nausea or vomiting or fever chills Denies any chest pain or shortness of breath Does not know when he had last bowel movement Physical Exam Vital Signs: Vital Signs: Last Vital Signs Temp 98.2 F 06/24/21 11:38 Pulse 77 06/24/21 11:38 Resp 18 06/24/21 11:38 BP 118/72 06/24/21 11:38 Pulse Ox 98 06/24/21 11:38 Body Mass Index 23.6 Appearance: not in distress.? Eyes: Pupils equal, round and reactive to light.? Sclera nonicteric.? ENT: Pharynx normal.? cvs: rrr, [id number] , no murmur res: clear to auscultation ,no rhonchii or wheezing abd: no rebound or guarding ,abd pain bs present. ext pulses present , no cyanosis ,Gait well balanced well coordinated. neuro: axo3 , nonfocal. Objective Data Active Medications Enoxaparin Sodium (Enoxaparin Sodium 40 Mg/0.4 Ml Syringe) 40 mg SUBCUT Q24H [facility] Last Admin: 06/23/21 20:13 Dose: 40 mg Documented by: ANGELINA Insulin Glargine (Insulin Glargine,Hum.Rec.Anlog 100 Unit/Ml 10 Ml Vial) 50 unit SUBCUT DAILY [facility] Last Admin: 06/24/21 09:14 Dose: Not Given Documented by: SUBHA Non-Admin Reason: Nausea Insulin Human Lispro (Insulin Lispro 100 Unit/Ml 3 Ml Vial) 0 unit SUBCUT QIDACHS [facility]; Protocol Last Admin: 06/24/21 11:59 Dose: Not Given Documented by: SUBHA Non-Admin Reason: No Insulin Coverage Metoclopramide HCl (Metoclopramide Hcl 5 Mg Tablet) 5 mg PO TIDAC [facility] Last Admin: 06/24/21 09:07 Dose: Not Given Documented by: SUBHA Non-Admin Reason: Patient Refused Omeprazole (Omeprazole 20 Mg Renee.) 20 mg PO BID@0630,1630 [facility] Last Admin: 06/24/21 10:13 Dose: 20 mg Documented by: SUBHA Ondansetron HCl (Ondansetron Hcl 4 Mg/2 Ml Vial) 4 mg IVPUSH Q8H PRN PRN Reason: Nausea Last Admin: 06/24/21 09:10 Dose: 4 mg Documented by: SUBHA Trazodone HCl (Trazodone Hcl 25 Mg Halftab) 25 mg PO BEDTIME DESTINY Last Admin: 06/23/21 22:17 Dose: Not Given Documented by: ANGELINA Non-Admin Reason: Duplicate Order Labs CBC & Chem 7: 06/24/21 05:59 06/24/21 05:59 Labs: Laboratory Results - last 24 hr 06/23/21 06/23/21 06/23/21 17:01 19:08 19:41 MCV MCH MCHC RDW Plt Count MPV Immature Gran % (Auto) Neut % (Auto) Lymph % (Auto) [place] % (Auto) Eos % (Auto) Baso % (Auto) Lymph # (Auto) [place] # (Auto) Eos # (Auto) Baso # (Auto) Abs Immat Gran (auto) Absolute Neuts (auto) Absolute Nucleated RBC Nucleated RBC % (auto) Anion Gap 10 L Estim Creat Clear Calc 105.0 Estimated GFR > 60 POC Glucose 193 H 142 H Random Glucose 149 H Calcium 8.6 D Phosphorus Magnesium 06/24/21 06/24/21 06/24/21 05:59 05:59 08:45 MCV 83.7 MCH 28.6 MCHC 34.2 RDW 12.0 Plt Count 231 MPV 9.8 Immature Gran % (Auto) 0.2 Neut % (Auto) 55.7 Lymph % (Auto) 27.9 [place] % (Auto) 15.5 H Eos % (Auto) 0.5 Baso % (Auto) 0.2 Lymph # (Auto) 1.8 [place] # (Auto) 1.0 Eos # (Auto) 0.0 Baso # (Auto) 0.0 Abs Immat Gran (auto) 0.01 Absolute Neuts (auto) 3.6 Absolute Nucleated RBC 0.000 Nucleated RBC % (auto) 0.0 Anion Gap 10 L Estim Creat Clear Calc 121.3 Estimated GFR > 60 POC Glucose 89 Random Glucose 91 D Calcium 8.4 Phosphorus 2.8 Magnesium 2.0 11/17/21 11:37 MCV MCH MCHC RDW Plt Count MPV Immature Gran % (Auto) Neut % (Auto) Lymph % (Auto) [place] % (Auto) Eos % (Auto) Baso % (Auto) Lymph # (Auto) [place] # (Auto) Eos # (Auto) Baso # (Auto) Abs Immat Gran (auto) Absolute Neuts (auto) Absolute Nucleated RBC Nucleated RBC % (auto) Anion Gap Estim Creat Clear Calc Estimated GFR POC Glucose 118 H Random Glucose Calcium Phosphorus Magnesium Assessment and Plan (1) Gastroparesis: Status: Acute (2) Diabetic keto-acidosis: Status: Acute Assessment and Plan: 25-year-old gentleman with past medical history of type 1 diabetes mellitus, gastroparesis and history of marijuana use Admitted to ICU for DKA, acute renal injury and electrolyte abnormality patient treated with IV fluids, and insulin drip, his electrolytes and blood sugars improved, therefore patient was downgraded to medical floor. 1. dm : Fingersticks seems improving Continue current insulin regimen Encouraged to p.o. intake 2. Gastroparesis: Probably has abdominal discomfort due to gastroparesis In addition he keep taking shower so question if had use of marijuana might be contributing Ppi, Reglan, KUB negative GI evaluation added- mayneed egd. npo past midnight dvt prohpplayx: patient is walking , hold lovenox Quality Stroke Does the patient have a stroke diagnosis?: No VTE Prior VTE?: No VTE Risk Level:: Medical - low VTE Device Contraindication: Treatment Not Indicated VTE Drug Contraindication: N/A - Med Ordered
--- NOTE | 2021-06-24 15:39 | MHC.SHP ---
Pre-Procedural Eval Section A Date of Service: 06/24/21 The patient is an INPATIENT: Yes Changes since office visit: No Cold of Flu in the past 2 weeks, No New Medical Problems, No Changes in Medication and No Patient answered all questions The History & Physical has been completed within 30 days and I have reviewed it.: Yes Section B Chief Complaint: DKA Allergies: Allergies Allergy/AdvReac Type Severity Reaction Status Date / Time passion fruit [PASSION FRUIT] Allergy Unknown UNK Verified 06/22/21 13:43 Plan I have reviewed the history and physical and performed a pertinent physical examination on my patient. No changes have occurred unless specified.
--- NOTE | 2021-06-24 15:40 | PM.EVENT ---
Event Note Date of Service: 06/24/21 Event Note: GI consult dictated Abd pain with n/v in setting of ibuprofen, alcohol and marijuana use. Has not had provious studies to establish gastroparesis by his report. Plan for egd tomorrow to eval for UGI causes for sx (PUD, gastritis, esophagitis, etc). He is aware of risks and benefits and agrees to proceed.
[2021-06-24 15:53] LABS: Glucose, Whole Blood 147 mg/dL (60-115)
[2021-06-24] MEDS: polyethylene glycoL 3350 17 GM POWD.PACK PO (16:03)
[2021-06-24] MEDS: Pantoprazole Sodium 40 MG/10 ML VIAL IVPUSH (16:04)
[2021-06-24] MEDS: Docusate Sodium 100 MG CAPSULE PO (16:04)
[2021-06-24] MEDS: traMADoL HCL 50 MG TABLET 25 MG PO (18:42)
[2021-06-24 19:54] LABS: Glucose, Whole Blood 151 mg/dL (60-115)
[2021-06-24] MEDS: Insulin Lispro 100 UNIT/ML 3 ML VIAL SUBCUT (21:07)
[2021-06-25] VITALS (7 sets, daily range): BP systolic 100–146; BP diastolic 57–91; PULSE 55–71; RESP 16–18; TEMP 36.4–37.4; O2SAT 98–99
--- NOTE | 2021-06-25 03:04 | CONS_ITS ---
DATE OF SERVICE: 06/24/2021 REFERRING PHYSICIAN: Dr. Carlisle REASON FOR CONSULTATION: Nausea, vomiting, and abdominal pain. HISTORY OF PRESENT ILLNESS: The patient is a 26-year-old man with a history of diabetes mellitus who was admitted to the hospital on June 22 after presenting to the emergency room with a 4-day history of vomiting. He has a history of diabetes and has had DKA in the past and reports nausea, vomiting, and generalized abdominal pain for several days prior to admission. The quality of the pain is sharp and generalized. He is unsure if he has vomited blood, stating the material he brought up was junky. He has not had any melena. Oral intake has been poor for the several days prior to admission. Additionally, he reports using 800 mg of ibuprofen on a daily basis for several days prior to admission and drinking alcohol approximately 1 pint per day for several days during a birthday celebration on June 15. He was initially admitted to the intensive care unit and given IV insulin. Subsequently, he has been transferred to the floor, but still complains of generalized abdominal pain. He states he has had no vomiting today, but has not been able to tolerate oral intake. He denies a prior history of peptic ulcer disease. He has had evaluation with ultrasound, but denies undergoing endoscopy or having had a gastric emptying test done. He does get occasional reflux, but does not take anything except [id number] antacids on a p.r.n. basis at home. PAST MEDICAL HISTORY: Diabetes mellitus. CURRENT MEDICATIONS: Current medication list is reviewed in the chart. ALLERGIES: THERE ARE NO REPORTED DRUG ALLERGIES. FAMILY HISTORY: This is negative for upper GI tract malignancy. SOCIAL HISTORY: He does use marijuana on a daily basis and has been taking showers frequently during the hospitalization according to nursing. He denies tobacco and other substance use. Alcohol use is as above. REVIEW OF SYSTEMS: SKIN: No pruritus. HEENT: Negative. CARDIOPULMONARY: No shortness of breath or chest pain. GASTROINTESTINAL: As above. GENITOURINARY: Negative. NEUROPSYCHIATRIC: Negative. PHYSICAL EXAMINATION: GENERAL: Shows a pleasant male. VITAL SIGNS: Reviewed in the electronic medical record and are stable. He is afebrile. SKIN: Anicteric. HEENT: Shows no scleral icterus. NECK: Without lymphadenopathy or thyromegaly. LUNGS: Clear. HEART: Shows a regular rate and rhythm. S1, S2. No murmur. ABDOMEN: Soft without focal masses or tenderness. Bowel sounds are present. No organomegaly is noted. EXTREMITIES: Without edema. LABORATORY DATA: Reviewed. White blood cell count is 6.5. Hematocrit has been stable since admission after dropping from 51 to 39 following hydration. There has been no reported melena. Chemistries have shown a normal liver profile. A KUB done earlier today was an unremarkable examination. IMPRESSION: Abdominal pain with nausea and vomiting in the setting of diabetes, alcohol and ibuprofen usage as well as regular marijuana usage. We discussed the differential diagnosis today for his symptoms, which includes peptic ulcer disease, gastritis, esophagitis, and vomiting related to marijuana use. He does not have well-established diagnosis of gastroparesis by testing standards and we discussed this today. I did recommend further evaluation with upper endoscopy for ruling out other upper GI causes for his symptoms as above. He understands risks and benefits and agrees to proceed. Depending on these results, he may need further evaluation with a gastric emptying study. Thanks for asking me to see him. I will follow him in the hospital with you. MD DAWIT Alexander/DEBORAH / [phone]
[2021-06-25] MEDS: Pantoprazole Sodium 40 MG/10 ML VIAL IVPUSH (05:48)
[2021-06-25 07:54] LABS: Glucose, Whole Blood 64 mg/dL (60-115)
[2021-06-25] MEDS: traMADoL HCL 50 MG TABLET 25 MG PO (08:42)
[2021-06-25] MEDS: Docusate Sodium 100 MG CAPSULE PO (08:43)
[2021-06-25] MEDS: Dextrose 5 % and 0.9 % NaCl 1,000 ML 80 ML IVCONT (08:51)
[2021-06-25 09:35] LABS: Glucose, Whole Blood 93 mg/dL (60-115)
[2021-06-25 11:24] LABS: Glucose, Whole Blood 115 mg/dL (60-115)
--- NOTE | 2021-06-25 12:26 | PM.EVENT ---
Event Note Date of Service: 06/25/21 Event Note: EGD erosive esophagitis duodenitis with shallow post wall ulcer in duodenal bulb with clean base antral biopsies obtained for h pylori. advance diet no nsaids/etoh ppi f/u bx results
--- NOTE | 2021-06-25 12:29 | PM.OP ---
Brief Operative Note Date of Service: 06/25/21 Pre-op diagnosis: n/v, abd pain Procedure: erosive esophagitis, duodenal ulcer Surgeon: Hammad Scanlon Anesthesia: MAC Was an Supervisor Personnel Clerks used for this Procedure?: No Estimated blood loss (mL): 2 Pathology: other (antral bxs) Condition: stable Disposition: PACU
--- NOTE | 2021-06-25 12:37 | PC.NURSE ---
DELONTE BY BEDSIDE
--- NOTE | 2021-06-25 12:49 | P.CONAN_ITS ---
[facility] Active Problems Active Problems: All Active Problems (Updated 06/23/21 @ 10:57 by Elmer Kuhn MD) Gastroparesis (Acute) Leukocytosis (Acute) Diabetic keto-acidosis (Acute) Past Medical History Medical History Diabetes Gastroparesis Surgical History History of Problems with Anesthesia: No Social History Social History Household Members: None Housing: Apartment Do you presently have visiting nurse or other home services: No Alcohol intake: current Alcohol intake frequency: does not drink Patient Tobacco Use Status: Never used Tobacco Substance Use Type: Marijuana Advance Directives Date on File: 01/22/21 service: No Current occupational status: employed Meds Allergies Allergy/AdvReac Type Severity Reaction Status Date / Time passion fruit [PASSION FRUIT] Allergy Unknown UNK Verified 06/22/21 13:43 Active Medications: Current Medications Docusate Sodium (Docusate Sodium 100 Mg Capsule) 100 mg PO BID [facility] Last Admin: 06/25/21 08:43 Dose: 100 mg Documented by: Enoxaparin Sodium (Enoxaparin Sodium 40 Mg/0.4 Ml Syringe) 40 mg SUBCUT Q24H [facility] Last Admin: 06/23/21 20:13 Dose: 40 mg Documented by: Dextrose/Sodium Chloride (D5ns) 1,000 mls @ 80 mls/hr IVCONT .[id number] [facility] Last Admin: 06/25/21 08:51 Dose: 80 mls/hr Documented by: Insulin Glargine (Insulin Glargine,Hum.Rec.Anlog 100 Unit/Ml 10 Ml Vial) 25 unit SUBCUT DAILY [facility] Last Admin: 06/25/21 10:03 Dose: Not Given Documented by: Insulin Human Lispro (Insulin Lispro 100 Unit/Ml 3 Ml Vial) 0 unit SUBCUT QIDACHS [facility]; Protocol Last Admin: 06/25/21 11:51 Dose: Not Given Documented by: Metoclopramide HCl (Metoclopramide Hcl 10 Mg/2 Ml Vial) 10 mg IVPUSH Q6H PRN PRN Reason: gastroparesis Omeprazole (Omeprazole 40 Mg Capsule.Dr) 40 mg PO DAILY@0630 [facility] Ondansetron HCl (Ondansetron Hcl 4 Mg/2 Ml Vial) 4 mg IVPUSH Q8H PRN PRN Reason: Nausea Last Admin: 06/24/21 09:10 Dose: 4 mg Documented by: Polyethylene Glycol (Polyethylene Glycol 3350 17 Gm Powd.Pack) 17 gm PO DAILY [facility] Last Admin: 06/25/21 08:43 Dose: Not Given Documented by: Tramadol HCl (Tramadol Hcl 50 Mg Tablet) 25 mg PO Q6H PRN PRN Reason: abd pain Last Admin: 06/25/21 08:42 Dose: 25 mg Documented by: Trazodone HCl (Trazodone Hcl 25 Mg Halftab) 25 mg PO BEDTIME [facility] Last Admin: 06/24/21 21:09 Dose: Not Given Documented by: Home Medications Medication Instructions Recorded Confirmed Last Taken Type insulin lispro protamine-lispro 45 unit SUBCUT BID 04/03/21 06/22/21 05/24/21 History 100 unit/mL (75-25) subcutaneous susp (Humalog Mix 75-25(U-100)Insuln) Exam Exam Date and Time: June 25, 2021 1249 Height,Weight and Vital Signs: Height 5 ft 6 in Weight 66.3 kg Last Vital Signs Temp 98.1 F 06/25/21 12:39 Pulse 60 06/25/21 12:39 Resp 16 06/25/21 12:39 BP 126/78 06/25/21 12:39 Pulse Ox 99 06/25/21 12:39 Pertinent Lab Results Pertinent Lab Results: Laboratory Tests 06/22/21 06/22/21 06/22/21 13:49 16:55 16:55 WBC 15.5 H RBC 5.98 H Hgb 17.2 Hct 51.7 MCV 86.5 MCH 28.8 MCHC 33.3 RDW 12.1 Plt Count 312 D MPV 10.3 Immature Gran % (Auto) 0.5 H Neut % (Auto) 82.3 H Lymph % (Auto) 8.1 L [place] % (Auto) 8.8 Eos % (Auto) 0.1 Baso % (Auto) 0.2 Lymph # (Auto) 1.3 [place] # (Auto) 1.4 H Eos # (Auto) 0.0 Baso # (Auto) 0.0 Abs Immat Gran (auto) 0.07 H Absolute Neuts (auto) 12.8 H Absolute Nucleated RBC 0.000 Nucleated RBC % (auto) 0.0 VBG pH VBG pCO2 VBG pO2 VBG HCO3 VBG O2 Saturation VBG Base Excess Sodium 132 L Potassium 4.9 D Chloride 99 Carbon Dioxide 8 L* D Anion Gap 30 H BUN 15 Creatinine 1.53 H Estim Creat Clear Calc 66.6 Estimated GFR 56 POC Glucose 343 H Random Glucose 396 H* Lactic Acid Lactic Acid Fup @ 2Hr Lactic Acid Fup @ 4Hr Calcium 9.4 Phosphorus Magnesium Total Bilirubin 1.0 AST 17 D ALT 15 Alkaline Phosphatase 84 D Total Protein 7.9 Albumin 4.6 Lipase 13 Acetone, Qual Small H COVID-19 (EARLINE) COVIDCelladon19 [place] 06/22/21 06/22/21 06/22/21 16:55 17:06 17:54 WBC RBC Hgb Hct MCV MCH MCHC RDW Plt Count MPV Immature Gran % (Auto) Neut % (Auto) Lymph % (Auto) [place] % (Auto) Eos % (Auto) Baso % (Auto) Lymph # (Auto) [place] # (Auto) Eos # (Auto) Baso # (Auto) Abs Immat Gran (auto) Absolute Neuts (auto) Absolute Nucleated RBC Nucleated RBC % (auto) VBG pH VBG pCO2 VBG pO2 VBG HCO3 VBG O2 Saturation VBG Base Excess Sodium Potassium Chloride Carbon Dioxide Anion Gap BUN Creatinine Estim Creat Clear Calc Estimated GFR POC Glucose 356 H* 276 H Random Glucose Lactic Acid 3.0 H* Lactic Acid Fup @ 2Hr Lactic Acid Fup @ 4Hr Calcium Phosphorus Magnesium Total Bilirubin AST ALT Alkaline Phosphatase Total Protein Albumin Lipase Acetone, Qual COVID-19 (EARLINE) COVIDBooktrack 06/22/21 06/22/21 06/22/21 19:26 19:48 20:55 WBC RBC Hgb Hct MCV MCH MCHC RDW Plt Count MPV Immature Gran % (Auto) Neut % (Auto) Lymph % (Auto) [place] % (Auto) Eos % (Auto) Baso % (Auto) Lymph # (Auto) [place] # (Auto) Eos # (Auto) Baso # (Auto) Abs Immat Gran (auto) Absolute Neuts (auto) Absolute Nucleated RBC Nucleated RBC % (auto) VBG pH VBG pCO2 VBG pO2 VBG HCO3 VBG O2 Saturation VBG Base Excess Sodium Potassium Chloride Carbon Dioxide Anion Gap BUN Creatinine Estim Creat Clear Calc Estimated GFR POC Glucose 208 H 262 H Random Glucose Lactic Acid Lactic Acid Fup @ 2Hr 2.1 H* Lactic Acid Fup @ 4Hr Calcium Phosphorus Magnesium Total Bilirubin AST ALT Alkaline Phosphatase Total Protein Albumin Lipase Acetone, Qual COVID-19 (EARLINE) [place] 06/22/21 06/22/21 06/22/21 21:30 22:11 22:27 WBC RBC Hgb Hct MCV MCH MCHC RDW Plt Count MPV Immature Gran % (Auto) Neut % (Auto) Lymph % (Auto) [place] % (Auto) Eos % (Auto) Baso % (Auto) Lymph # (Auto) [place] # (Auto) Eos # (Auto) Baso # (Auto) Abs Immat Gran (auto) Absolute Neuts (auto) Absolute Nucleated RBC Nucleated RBC % (auto) VBG pH VBG pCO2 VBG pO2 VBG HCO3 VBG O2 Saturation VBG Base Excess Sodium 135 Potassium 3.8 D Chloride 107 Carbon Dioxide 18 L Anion Gap 14 BUN 11 Creatinine 1.18 Estim Creat Clear Calc 86.3 Estimated GFR > 60 POC Glucose 248 H Random Glucose 252 H D Lactic Acid Lactic Acid Fup @ 2Hr Lactic Acid Fup @ 4Hr Calcium 8.5 D Phosphorus Magnesium Total Bilirubin AST ALT Alkaline Phosphatase Total Protein Albumin Lipase Acetone, Qual COVID-19 (EARLINE) Negative Rewarding ReturnIDBooktrack See Note 06/22/21 06/22/21 06/22/21 22:27 22:30 23:07 WBC RBC Hgb Hct MCV MCH MCHC RDW Plt Count MPV Immature Gran % (Auto) Neut % (Auto) Lymph % (Auto) [place] % (Auto) Eos % (Auto) Baso % (Auto) Lymph # (Auto) [place] # (Auto) Eos # (Auto) Baso # (Auto) Abs Immat Gran (auto) Absolute Neuts (auto) Absolute Nucleated RBC Nucleated RBC % (auto) VBG pH 7.35 VBG pCO2 28 VBG pO2 54 VBG HCO3 16 L VBG O2 Saturation 83.0 VBG Base Excess -7.5 Sodium Potassium Chloride Carbon Dioxide Anion Gap BUN Creatinine Estim Creat Clear Calc Estimated GFR POC Glucose 192 H Random Glucose Lactic Acid Lactic Acid Fup @ 2Hr Lactic Acid Fup @ 4Hr 1.2 Calcium Phosphorus Magnesium Total Bilirubin AST ALT Alkaline Phosphatase Total Protein Albumin Lipase Acetone, Qual COVID-19 (EARLINE) COVID-19 [place] 06/23/21 06/23/21 06/23/21 00:00 01:51 03:58 WBC RBC Hgb Hct MCV MCH MCHC RDW Plt Count MPV Immature Gran % (Auto) Neut % (Auto) Lymph % (Auto) [place] % (Auto) Eos % (Auto) Baso % (Auto) Lymph # (Auto) [place] # (Auto) Eos # (Auto) Baso # (Auto) Abs Immat Gran (auto) Absolute Neuts (auto) Absolute Nucleated RBC Nucleated RBC % (auto) VBG pH VBG pCO2 VBG pO2 VBG HCO3 VBG O2 Saturation VBG Base Excess Sodium Potassium Chloride Carbon Dioxide Anion Gap BUN Creatinine Estim Creat Clear Calc Estimated GFR POC Glucose 151 H 90 87 Random Glucose Lactic Acid Lactic Acid Fup @ 2Hr Lactic Acid Fup @ 4Hr Calcium Phosphorus Magnesium Total Bilirubin AST ALT Alkaline Phosphatase Total Protein Albumin Lipase Acetone, Qual COVID-19 (EARLINE) COVID-19 [place] 06/23/21 06/23/21 06/23/21 05:28 05:28 05:31 WBC 9.9 RBC 4.75 D Hgb 13.8 L Hct 39.7 L D MCV 83.6 MCH 29.1 MCHC 34.8 RDW 11.9 Plt Count 241 MPV 9.7 Immature Gran % (Auto) 0.3 Neut % (Auto) 72.7 Lymph % (Auto) 13.4 L [place] % (Auto) 13.2 H Eos % (Auto) 0.2 Baso % (Auto) 0.2 Lymph # (Auto) 1.3 [place] # (Auto) 1.3 H Eos # (Auto) 0.0 Baso # (Auto) 0.0 Abs Immat Gran (auto) 0.03 Absolute Neuts (auto) 7.2 Absolute Nucleated RBC 0.000 Nucleated RBC % (auto) 0.0 VBG pH 7.42 VBG pCO2 28 VBG pO2 77 VBG HCO3 18 L VBG O2 Saturation 95.0 VBG Base Excess -4.1 Sodium 135 Potassium 3.3 Chloride 109 H Carbon Dioxide 23 Anion Gap 6 L BUN 8 L Creatinine 0.87 Estim Creat Clear Calc 117.1 Estimated GFR > 60 POC Glucose Random Glucose 99 D Lactic Acid Lactic Acid Fup @ 2Hr Lactic Acid Fup @ 4Hr Calcium 8.2 L Phosphorus 1.1 L Magnesium 2.1 Total Bilirubin 0.6 AST 7 D ALT 9 Alkaline Phosphatase 54 D Total Protein 5.4 L D Albumin 3.4 L D Lipase Acetone, Qual COVID-19 (EARLINE) COVID-19 [place] 06/23/21 06/23/21 06/23/21 07:27 09:58 11:23 WBC RBC Hgb Hct MCV MCH MCHC RDW Plt Count MPV Immature Gran % (Auto) Neut % (Auto) Lymph % (Auto) [place] % (Auto) Eos % (Auto) Baso % (Auto) Lymph # (Auto) [place] # (Auto) Eos # (Auto) Baso # (Auto) Abs Immat Gran (auto) Absolute Neuts (auto) Absolute Nucleated RBC Nucleated RBC % (auto) VBG pH VBG pCO2 VBG pO2 VBG HCO3 VBG O2 Saturation VBG Base Excess Sodium 136 Potassium 3.7 Chloride 106 Carbon Dioxide 21 L Anion Gap 13 BUN 7 L Creatinine 1.01 Estim Creat Clear Calc 100.8 Estimated GFR > 60 POC Glucose 116 H 194 H Random Glucose 185 H D Lactic Acid Lactic Acid Fup @ 2Hr Lactic Acid Fup @ 4Hr Calcium 8.1 L Phosphorus Magnesium Total Bilirubin AST ALT Alkaline Phosphatase Total Protein Albumin Lipase Acetone, Qual COVID-19 (EARLINE) COVID-19 [place] 06/23/21 06/23/21 06/23/21 17:01 19:08 19:41 WBC RBC Hgb Hct MCV MCH MCHC RDW Plt Count MPV Immature Gran % (Auto) Neut % (Auto) Lymph % (Auto) [place] % (Auto) Eos % (Auto) Baso % (Auto) Lymph # (Auto) [place] # (Auto) Eos # (Auto) Baso # (Auto) Abs Immat Gran (auto) Absolute Neuts (auto) Absolute Nucleated RBC Nucleated RBC % (auto) VBG pH VBG pCO2 VBG pO2 VBG HCO3 VBG O2 Saturation VBG Base Excess Sodium 135 Potassium 3.4 Chloride 103 Carbon Dioxide 25 Anion Gap 10 L BUN 6 L Creatinine 0.97 Estim Creat Clear Calc 105.0 Estimated GFR > 60 POC Glucose 193 H 142 H Random Glucose 149 H Lactic Acid Lactic Acid Fup @ 2Hr Lactic Acid Fup @ 4Hr Calcium 8.6 D Phosphorus Magnesium Total Bilirubin AST ALT Alkaline Phosphatase Total Protein Albumin Lipase Acetone, Qual COVID-19 (EARLINE) COVID-19 [place] 06/24/21 06/24/21 06/24/21 05:59 05:59 08:45 WBC 6.5 RBC 4.86 Hgb 13.9 L Hct 40.7 L MCV 83.7 MCH 28.6 MCHC 34.2 RDW 12.0 Plt Count 231 MPV 9.8 Immature Gran % (Auto) 0.2 Neut % (Auto) 55.7 Lymph % (Auto) 27.9 [place] % (Auto) 15.5 H Eos % (Auto) 0.5 Baso % (Auto) 0.2 Lymph # (Auto) 1.8 [place] # (Auto) 1.0 Eos # (Auto) 0.0 Baso # (Auto) 0.0 Abs Immat Gran (auto) 0.01 Absolute Neuts (auto) 3.6 Absolute Nucleated RBC 0.000 Nucleated RBC % (auto) 0.0 VBG pH VBG pCO2 VBG pO2 VBG HCO3 VBG O2 Saturation VBG Base Excess Sodium 138 Potassium 3.3 Chloride 105 Carbon Dioxide 26 Anion Gap 10 L BUN 6 L Creatinine 0.84 Estim Creat Clear Calc 121.3 Estimated GFR > 60 POC Glucose 89 Random Glucose 91 D Lactic Acid Lactic Acid Fup @ 2Hr Lactic Acid Fup @ 4Hr Calcium 8.4 Phosphorus 2.8 Magnesium 2.0 Total Bilirubin AST ALT Alkaline Phosphatase Total Protein Albumin Lipase Acetone, Qual COVID-19 (EARLINE) COVID-19 [place] 06/24/21 06/24/21 06/24/21 11:37 15:44 19:50 WBC RBC Hgb Hct MCV MCH MCHC RDW Plt Count MPV Immature Gran % (Auto) Neut % (Auto) Lymph % (Auto) [place] % (Auto) Eos % (Auto) Baso % (Auto) Lymph # (Auto) [place] # (Auto) Eos # (Auto) Baso # (Auto) Abs Immat Gran (auto) Absolute Neuts (auto) Absolute Nucleated RBC Nucleated RBC % (auto) VBG pH VBG pCO2 VBG pO2 VBG HCO3 VBG O2 Saturation VBG Base Excess Sodium Potassium Chloride Carbon Dioxide Anion Gap BUN Creatinine Estim Creat Clear Calc Estimated GFR POC Glucose 118 H 147 H 151 H Random Glucose Lactic Acid Lactic Acid Fup @ 2Hr Lactic Acid Fup @ 4Hr Calcium Phosphorus Magnesium Total Bilirubin AST ALT Alkaline Phosphatase Total Protein Albumin Lipase Acetone, Qual COVID-19 (EARLINE) COVID-19 Clin Com 06/25/21 06/25/21 06/25/21 07:38 09:29 11:19 WBC RBC Hgb Hct MCV MCH MCHC RDW Plt Count MPV Immature Gran % (Auto) Neut % (Auto) Lymph % (Auto) [place] % (Auto) Eos % (Auto) Baso % (Auto) Lymph # (Auto) [place] # (Auto) Eos # (Auto) Baso # (Auto) Abs Immat Gran (auto) Absolute Neuts (auto) Absolute Nucleated RBC Nucleated RBC % (auto) VBG pH VBG pCO2 VBG pO2 VBG HCO3 VBG O2 Saturation VBG Base Excess Sodium Potassium Chloride Carbon Dioxide Anion Gap BUN Creatinine Estim Creat Clear Calc Estimated GFR POC Glucose 64 93 115 Random Glucose Lactic Acid Lactic Acid Fup @ 2Hr Lactic Acid Fup @ 4Hr Calcium Phosphorus Magnesium Total Bilirubin AST ALT Alkaline Phosphatase Total Protein Albumin Lipase Acetone, Qual COVID-19 (EARLINE) COVID-19 Clin Com Airway Mallampati Class: II TM Dist: >3cm Neck ROM: Full Loose/Missing/Broken Teeth: No Heart: RRR Lungs: CTA Assessment and Plan Assessment Anesthesia Assessment: Anesthesia Plan Discussed and Chart Reviewed Final Anesthetic Review History of Problems with Anesthesia: No NPO: Yes ASA Class: III Final Preanesthetic Review: Meds/Allgs Chart Reviewed, Consent Obtained/Reviewed and Anes Risks/Benef Reviewed Patient Risk: Intermediate Procedure Risk: Intermediate Anesthetic Plan Anesthetic Plan: MAC: Disposition: Standard PACU
--- NOTE | 2021-06-25 12:54 | PC.NURSE ---
RECALLED FLOOR TO GIVE NURSE TO NURSE. AWAITING CALL BACK
--- NOTE | 2021-06-25 13:06 | P.PNIM_ITS ---
Subjective Subjective Date of Service: 06/25/21 Interval History: Erosive esophagitis, duodenal ulcer. Review of Systems Abdominal improving this morning Still has nausea Denies any fever chills or shortness of breath or chest pain. Physical Exam Vital Signs: Vital Signs: Last Vital Signs Temp 98.1 F 06/25/21 12:39 Pulse 60 06/25/21 12:39 Resp 16 06/25/21 12:39 BP 126/78 06/25/21 12:39 Pulse Ox 99 06/25/21 12:39 Body Mass Index 23.6 Appearance:? not in distress.? Eyes: Pupils equal, round and reactive to light.? Sclera nonicteric.? ENT: Pharynx normal.? cvs: rrr, [id number] , no murmur res: clear to auscultation ,no rhonchii or wheezing abd: no rebound or guarding ,abd pain?in epigastric area, bs present. ext pulses present , no cyanosis ,Gait well balanced well coordinated. neuro: axo3 , nonfocal. Objective Data Active Medications Docusate Sodium (Docusate Sodium 100 Mg Capsule) 100 mg PO BID [facility] Last Admin: 06/25/21 08:43 Dose: 100 mg Documented by: LUCRECIA Enoxaparin Sodium (Enoxaparin Sodium 40 Mg/0.4 Ml Syringe) 40 mg SUBCUT Q24H [facility] Last Admin: 06/23/21 20:13 Dose: 40 mg Documented by: CASTILM Dextrose/Sodium Chloride (D5ns) 1,000 mls @ 80 mls/hr IVCONT .[id number] [facility] Last Admin: 06/25/21 08:51 Dose: 80 mls/hr Documented by: LUCRECIA Insulin Glargine (Insulin Glargine,Hum.Rec.Anlog 100 Unit/Ml 10 Ml Vial) 25 unit SUBCUT DAILY [facility] Last Admin: 06/25/21 10:03 Dose: Not Given Documented by: LUCRECIA Non-Admin Reason: NPO Insulin Human Lispro (Insulin Lispro 100 Unit/Ml 3 Ml Vial) 0 unit SUBCUT QIDACHS [facility]; Protocol Last Admin: 06/25/21 11:51 Dose: Not Given Documented by: LUCRECIA Non-Admin Reason: No Insulin Coverage Metoclopramide HCl (Metoclopramide Hcl 10 Mg/2 Ml Vial) 10 mg IVPUSH Q6H PRN PRN Reason: gastroparesis Omeprazole (Omeprazole 40 Mg Capsule.Dr) 40 mg PO DAILY@0630 [facility] Ondansetron HCl (Ondansetron Hcl 4 Mg/2 Ml Vial) 4 mg IVPUSH Q8H PRN PRN Reason: Nausea Last Admin: 06/24/21 09:10 Dose: 4 mg Documented by: SUBHA Polyethylene Glycol (Polyethylene Glycol 3350 17 Gm Powd.Pack) 17 gm PO DAILY [facility] Last Admin: 06/25/21 08:43 Dose: Not Given Documented by: LUCRECIA Non-Admin Reason: Patient Refused Tramadol HCl (Tramadol Hcl 50 Mg Tablet) 25 mg PO Q6H PRN PRN Reason: abd pain Last Admin: 06/25/21 08:42 Dose: 25 mg Documented by: LUCRECIA Trazodone HCl (Trazodone Hcl 25 Mg Halftab) 25 mg PO BEDTIME [facility] Last Admin: 06/24/21 21:09 Dose: Not Given Documented by: JOSE Non-Admin Reason: Patient Refused Labs CBC & Chem 7: 06/24/21 05:59 06/24/21 05:59 Labs: Laboratory Results - last 24 hr 06/24/21 06/24/21 06/25/21 15:44 19:50 07:38 POC Glucose 147 H 151 H 64 06/25/21 06/25/21 09:29 11:19 POC Glucose 93 115 Assessment and Plan (1) Gastroparesis: Status: Acute (2) Leukocytosis: Status: Acute (3) Diabetic keto-acidosis: Status: Acute Assessment and Plan: 25-year-old gentleman with past medical history of type 1 diabetes mellitus, gastroparesis and history of marijuana use Admitted to ICU for DKA, acute renal injury and electrolyte abnormality patient treated with IV fluids, and insulin drip, his electrolytes and blood sugars improved, therefore patient was downgraded to medical floor. 1. dm :? Fingersticks seems improving Continue current insulin regimen Encouraged to p.o. intake 2. Gastroparesis:? Probably has abdominal discomfort due to gastroparesis In addition he keep taking shower so question if had use of marijuana might be contributing Ppi, Reglan, KUB negative GI evaluation-patient has Egd-found to have erosive esophagitis/duodenal ulcer. Biopsy sent Will start care liquid diet see if he tolerates. dvt prohpplayx: patient is walking , hold lovenox Quality Stroke Does the patient have a stroke diagnosis?: No VTE Prior VTE?: No VTE Risk Level:: Medical - low VTE Device Contraindication: Treatment Not Indicated VTE Drug Contraindication: N/A - Med Ordered
--- NOTE | 2021-06-25 22:41 | OP_ITS ---
SURGEON: Hammad Scanlon MD INDICATIONS: Abdominal pain, nausea, and vomiting. PREOPERATIVE DIAGNOSIS: POSTOPERATIVE DIAGNOSIS: PROCEDURE PERFORMED: Upper endoscopy with biopsy. ESTIMATED BLOOD LOSS: COMPLICATIONS: ANESTHESIA: ASSISTANTS: SPECIMENS: MEDICATIONS: Monitored anesthesia care. DESCRIPTION OF PROCEDURE: History and physical performed. The risks and benefits of the procedure were explained to the patient. Informed consent was obtained. The patient was placed in the left lateral decubitus position. The Olympus video gastroscope was introduced into the esophagus, stomach, and duodenum. Examination was performed. The scope was removed. He tolerated the procedure well and was taken to recovery area in stable condition. FINDINGS: Esophagus: There was erosive esophagitis over the last 10 cm with linear ulceration, but no bleeding. Stomach: The stomach showed no evidence of masses or ulcers. There was some erythema in the fundus consistent with gastritis. Biopsies were obtained from the antrum. Duodenum: Duodenitis was present with 8 x 15 mm superficial ulcer on the posterior aspect of the duodenal bulb with no stigmata of recent hemorrhage. The second portion was normal. IMPRESSION: 1. Erosive esophagitis. 2. Duodenitis with duodenal ulcer. RECOMMENDATIONS: 1. No NSAIDs or aspirin. 2. Avoid alcohol. 3. Follow up the biopsy results. 4. Continue proton pump inhibitor and advance diet. MD DAWIT Alexander/DEBORAH / [id number]
== END 2021-06-25 14:50 | disposition home or self-care (01) | DRG 241 ==
LOC: HO.ED 18:37 → HO.EDOVER 19:31 → HO.ICU 20:01 → HO.S3 06-23 15:16
PROVIDERS: Internal Medicine Gastroenterology; Internal Medicine Pulmonary Disease; Admitting Provider Registered Nurse Community Health; Emergency Provider Emergency Medicine; PCP Internal Medicine; Visit Provider Internal Medicine
PROC: 0DJ08ZZ Inspection of Upper Intestinal Tract, Via Natural or Artificial Opening Endoscopic (ICD-10-PCS; CPT 43235; principal; 2021-06-25 12:00)
DX: K26.9 Duodenal ulcer, unspecified as acute or chronic, without hemorrhage or perforation (principal); E10.10 Type 1 diabetes mellitus with ketoacidosis without coma; N17.9 Acute kidney failure, unspecified; K22.10 Ulcer of esophagus without bleeding; D72.829 Elevated white blood cell count, unspecified; K29.80 Duodenitis without bleeding; Z20.822 Contact with and (suspected) exposure to COVID-19; Z79.4 Long term (current) use of insulin; Z23 Encounter for immunization; Z79.899 Other long term (current) drug therapy
CPT/HCPCS: 36415; 74018; 80048; 80053; 82009; 82803; 82947; 83605; 83690; 83735; 84100; 85025; 87635; 88305; 88342; 90686; 93005; 96361; 96365; 96375; 96376; 99285; 99291; J1650; J1885; J2405; J2765

== ENCOUNTER 2021-07-16 13:18 | Inpatient (IN) | payer OTHER, SELFPAY ==
[2021-07-16 14:36] VITALS: BP 131/76; PULSE 122; RESP 16; TEMP 36.9; O2SAT 99; BMI 24.2
[2021-07-16 14:57] LABS: MANUAL DIFF FLAG NO
[2021-07-16 14:57] LABS: Glucose, Whole Blood 456 mg/dL (60-115)
[2021-07-16 15:00] LABS: Basophils Percent Auto 0.1 % (0-2); Hemoglobin 16.3 g/dl (14.0-18.0); Imm Gran Pct Auto 0.7 % (0.0-0.4); Lymphocytes Absolute Auto 1.5 X10*3/uL (1.2-4.9); Lymphocytes Percent Auto 9.7 % (20-40); Mean Corpuscular HGB Conc 33.3 g/dl (31.0-36.0); Mean Corpuscular Hemoglobin 28.6 pg (27.0-33.0); Mean Corpuscular Volume 86.1 fL (80.0-98.0); Mean Platelet Volume 10.2 fL (9.4-12.4); Monocytes Absolute Auto 1.4 X10*3/uL (0.1-1.2); Monocytes Percent Auto 9.5 % (2-11); Neutrophils Absolute Auto 12.1 x10*3/uL (2.0-8.3); Platelet Count 321 X10*3/uL (160-400); Red Blood Count 5.69 X10*6/uL (4.60-5.80); Red Cell Distribution Width 12.8 % (11.0-16.0); White Blood Count 15.1 X10*3/uL (4.8-10.8)
[2021-07-16 15:18] LABS: Alanine Aminotransferase 13 U/L (0-40); Albumin Level 4.9 g/dL (3.5-5.0); Alkaline Phosphatase 76 U/L (39-117); Anion Gap 28 (12-20); Aspartate Amino Transferase 11 U/L (5-37); Blood Urea Nitrogen 22 mg/dL (9-16); Calcium 10.6 mg/dL (8.4-10.2); Carbon Dioxide 18 mmol/L (22-29); Chloride 91 mmol/L (96-108); Creatinine Clr Calc Pharmacy 63.6; Estimated Glomerular Filt Rate 53; Glucose Random 500 mg/dL (60-115); Potassium 5.3 mmol/L (3.3-5.1); Sodium 132 mmol/L (135-145); Total Protein 8.1 g/dL (6.5-8.0)
--- NOTE | 2021-07-16 15:32 | ED_ITS ---
HPI - General Adult General Chief complaint: General Medical Stated complaint: vomiting Time Seen by Provider: 07/16/21 15:15 Source: patient Mode of arrival: ambulatory History of Present Illness HPI narrative: 26-year-old male with a PMHx type 1 DM, gastroparesis, recurrent DKA, presenting to the ED complaining of increased generalized weakness/fatigue, chills, body aches, nausea, vomiting, and elevated glucose at home in the 200's. Denies taking insulin today. Reports inability to tolerate p.o. x a couple days. Reports abdominal cramping, mild chest discomfort, intermittent SOB. Denies fever, chills, cough, CP, pedal edema, recent travel Onset (ago): day(s) Related Data Home Medications Medication Instructions Recorded Confirmed insulin NPH-regular 70-30 U-100 50 unit SUBCUT BID 07/16/21 07/16/21 insulin 100 unit/mL subcutaneous pen (Novolin 70-30 FlexPen U-100 Insulin) Previous Rx's Medication Instructions Recorded metoclopramide HCl 5 mg tablet 5 mg PO BID PRN #10 tab 06/24/21 Allergies Allergy/AdvReac Type Severity Reaction Status Date / Time passion fruit [PASSION FRUIT] Allergy Unknown UNK Verified 06/22/21 13:43 Review of Systems Review of Systems: Constitutional: No Fever, + Chills, + Fatigue, + Malaise ENT/Mouth: No Ear Pain, No Nasal Congestion, No Sinus Pain, No Hoarseness, No sore throat Eyes: No Eye Pain, No Swelling, No Redness, No Foreign Body, No Discharge, No Vision Changes Cardiovascular: + Chest Pain, + SOB, No Orthopnea, No Edema, No Palpitations Respiratory: No Cough, No Dyspnea Gastrointestinal: + Nausea, + Vomiting, No Diarrhea, No Constipation, + Abdominal cramping Genitourinary: No Dysuria, No Urinary Frequency, No Hematuria, No Flank Pain, No Urinary Flow Changes Musculoskeletal: No joint pain, No Myalgias, No Joint Swelling Skin: No Skin Lesions, No rash Neuro: + Weakness, No Numbness, No Paresthesias, No Loss of Consciousness, No Dizziness, No Headache Yes all other systems are reviewed and are negative [facility] Past Medical History Attestation statement: The following information was validated with the patient. Medical History Diabetes Diabetic keto-acidosis Gastroparesis Leukocytosis Social History Social History Household Members: None Housing: Apartment Do you presently have visiting nurse or other home services: No Alcohol intake: current Alcohol intake frequency: does not drink Patient Tobacco Use Status: Never used Tobacco Substance Use Type: Marijuana Advance Directives: Yes Advance Directives on File: Yes Advance Directives Date on File: 01/22/21 service: No Current occupational status: employed Physical Exam Vital Signs: Vital Signs: Last Vital Signs Temp 98.4 F 07/16/21 14:36 Pulse 122 H 07/16/21 14:36 Resp 16 07/16/21 14:36 BP 131/76 07/16/21 14:36 Pulse Ox 99 07/16/21 14:36 BMI result Body Mass Index 24.2 Const: General: cooperative and no acute distress Orientation/cons ciousness: patient oriented x3 Limitations: no limitations HENMT: Head: Yes normal to inspection and Yes atraumatic Ears: hearing grossly normal bilaterally General nose exam: Normal external nose present Face and sinus: Yes normal facial exam Eyes: General: appearance normal, both eyes and all related structures EOM: EOMs intact bilaterally Neck: Neck: Yes normal visual inspection and Yes no meningeal signs Resp: Effort & Inspection: normal respiratory effort Auscultation: clear to auscultation bilaterally, no rales, no rhonchi and no wheezes Cardio: Rate: regular rate and tachycardic Heart sounds: S1 normal heart sound present and S2 normal heart sound present GI: Inspection: Yes normal to inspection Palpation (GI): Soft to palpation, nontender, no guarding and not rigid : General: Yes no CVA tenderness Back/Spine/Pelvis: Back: no CVA tenderness Skin: Rashes: no rashes Wounds: no wounds Neuro: General: patient oriented x3 and no meningeal signs Gait exam (Neuro): Normal gait present Extrem: General: Yes normal to inspection and Yes no pedal edema Course Course Course Narrative: -2600--noted leukocytosis of 15.1, Sodium 132 (Corrected for hyperglycemia 142), potassium elevated at 5.3, GISSELLE with creatinine 1.6/BUN 22 > consistent with dehydration/nausea/vomiting -glucose 500 with an anion gap of 28 > likely from lactic acidois/DKA > acetone/VBG pending -acetone negative, Lactic acidosis 3.0 (low concern for sepsis or infectious etiology) > repeat POC 368. Additional 5 units IV insulin ordered. Will repeat BMP -1745--repeat POC 251 -1757--repeat BMP with resolved GISSELLE and closed AG, potassium 3.6 -1800-- ED care transferred to [facility] Cecy pending repeat lactic, Additional repeat 1 hour BMP, p.o. challenge, and Dispo per results Medical Decision Making MDM Narrative Medical decision making narrative: 26-year-old male with a PMHx type 1 DM, gastroparesis, recurrent DKA, presenting to the ED complaining of increased generalized weakness/fatigue, chills, body aches, nausea, vomiting, and elevated glucose at home in the 200's. On exam tachycardic, actively vomiting during exam, lungs CTA, abdomen soft-nontender. Concern for DKA/hyperglycemia vs gastroparesis vs metabolic abnormalities including dehydration. Rule out infectious etiology. Low concern for appendicitis/diverticulitis or pancreatitis Plan: EKG, labs, UA, IVF, IV insulin, COVID-19 testing, re-evaluate Medical Records Medical records reviewed: Yes I reviewed the patient's medical records. Lab Data Lab results reviewed: Yes I reviewed the patient's lab results. Result diagrams: 07/16/21 14:52 07/16/21 17:24 Labs: Lab Results 07/16/21 07/16/21 07/16/21 Range/Units 14:45 14:52 14:52 WBC 15.1 H (4.8-10.8) X10*3/uL RBC 5.69 (4.60-5.80) X10*6/uL Hgb 16.3 (14.0-18.0) g/dl Hct 49.0 D (42.0-52.0) % MCV 86.1 (80.0-98.0) fL MCH 28.6 (27.0-33.0) pg MCHC 33.3 (31.0-36.0) g/dl RDW 12.8 (11.0-16.0) % Plt Count 321 D (160-400) X10*3/uL MPV 10.2 (9.4-12.4) fL Immature Gran % (Auto) 0.7 H (0.0-0.4) % Neut % (Auto) 80.0 H (45-73) % Lymph % (Auto) 9.7 L (20-40) % [place] % (Auto) 9.5 (2-11) % Eos % (Auto) 0.0 (0-4) % Baso % (Auto) 0.1 (0-2) % Lymph # (Auto) 1.5 (1.2-4.9) X10*3/uL [place] # (Auto) 1.4 H (0.1-1.2) X10*3/uL Eos # (Auto) 0.0 (0.0-0.4) X10*3/uL Baso # (Auto) 0.0 (0.0-0.2) X10*3/uL Abs Immat Gran (auto) 0.10 H (0.00-0.03) X10*3/uL Absolute Neuts (auto) 12.1 H (2.0-8.3) x10*3/uL Absolute Nucleated RBC 0.000 (0.0-0.012) X10*3/uL Nucleated RBC % (auto) 0.0 (0.0-0.2) /100WBC VBG pH (7.32-7.43) VBG pCO2 mmHg VBG pO2 mmHg VBG HCO3 (22-26) mmol/L VBG O2 Saturation % VBG Base Excess mmol/L Sodium 132 L (135-145) mmol/L Potassium 5.3 H D (3.3-5.1) mmol/L Chloride 91 L (96-108) mmol/L Carbon Dioxide 18 L (22-29) mmol/L Anion Gap 28 H (12-20) BUN 22 H (9-16) mg/dL Creatinine 1.60 H (0.5-1.4) mg/dL Estim Creat Clear Calc 63.6 Estimated GFR 53 POC Glucose 456 H* (60-115) mg/dL Random Glucose 500 H* (60-115) mg/dL Lactic Acid (0.5-2.0) mmol/L Calcium 10.6 H D (8.4-10.2) mg/dL Total Bilirubin 1.0 (0.0-1.0) mg/dL AST 11 D (5-37) U/L ALT 13 (0-40) U/L Alkaline Phosphatase 76 D (39-117) U/L Total Protein 8.1 H D (6.5-8.0) g/dL Albumin 4.9 D (3.5-5.0) g/dL Lipase 16 (8-78) U/L Acetone, Qual Negative (Negative) Influenza Type A (PCR) (Negative) Influenza Type B (PCR) (Negative) RSV RNA Qual (PCR) (Negative) SARS-CoV-2 RNA (RT-PCR) (Negative) 07/16/21 07/16/21 07/16/21 Range/Units 14:52 15:48 15:54 WBC (4.8-10.8) X10*3/uL RBC (4.60-5.80) X10*6/uL Hgb (14.0-18.0) g/dl Hct (42.0-52.0) % MCV (80.0-98.0) fL MCH (27.0-33.0) pg MCHC (31.0-36.0) g/dl RDW (11.0-16.0) % Plt Count (160-400) X10*3/uL MPV (9.4-12.4) fL Immature Gran % (Auto) (0.0-0.4) % Neut % (Auto) (45-73) % Lymph % (Auto) (20-40) % [place] % (Auto) (2-11) % Eos % (Auto) (0-4) % Baso % (Auto) (0-2) % Lymph # (Auto) (1.2-4.9) X10*3/uL [place] # (Auto) (0.1-1.2) X10*3/uL Eos # (Auto) (0.0-0.4) X10*3/uL Baso # (Auto) (0.0-0.2) X10*3/uL Abs Immat Gran (auto) (0.00-0.03) X10*3/uL Absolute Neuts (auto) (2.0-8.3) x10*3/uL Absolute Nucleated RBC (0.0-0.012) X10*3/uL Nucleated RBC % (auto) (0.0-0.2) /100WBC VBG pH 7.32 (7.32-7.43) VBG pCO2 31 mmHg VBG pO2 71 mmHg VBG HCO3 16 L (22-26) mmol/L VBG O2 Saturation 89.0 % VBG Base Excess -7.9 mmol/L Sodium (135-145) mmol/L Potassium (3.3-5.1) mmol/L Chloride (96-108) mmol/L Carbon Dioxide (22-29) mmol/L Anion Gap (12-20) BUN (9-16) mg/dL Creatinine (0.5-1.4) mg/dL Estim Creat Clear Calc Estimated GFR POC Glucose (60-115) mg/dL Random Glucose (60-115) mg/dL Lactic Acid 3.0 H* (0.5-2.0) mmol/L Calcium (8.4-10.2) mg/dL Total Bilirubin (0.0-1.0) mg/dL AST (5-37) U/L ALT (0-40) U/L Alkaline Phosphatase (39-117) U/L Total Protein (6.5-8.0) g/dL Albumin (3.5-5.0) g/dL Lipase (8-78) U/L Acetone, Qual (Negative) Influenza Type A (PCR) NEGATIVE (Negative) Influenza Type B (PCR) NEGATIVE (Negative) RSV RNA Qual (PCR) NEGATIVE (Negative) SARS-CoV-2 RNA (RT-PCR) NEGATIVE (Negative) 07/16/21 07/16/21 07/16/21 Range/Units 16:30 17:24 17:44 WBC (4.8-10.8) X10*3/uL RBC (4.60-5.80) X10*6/uL Hgb (14.0-18.0) g/dl Hct (42.0-52.0) % MCV (80.0-98.0) fL MCH (27.0-33.0) pg MCHC (31.0-36.0) g/dl RDW (11.0-16.0) % Plt Count (160-400) X10*3/uL MPV (9.4-12.4) fL Immature Gran % (Auto) (0.0-0.4) % Neut % (Auto) (45-73) % Lymph % (Auto) (20-40) % [place] % (Auto) (2-11) % Eos % (Auto) (0-4) % Baso % (Auto) (0-2) % Lymph # (Auto) (1.2-4.9) X10*3/uL [place] # (Auto) (0.1-1.2) X10*3/uL Eos # (Auto) (0.0-0.4) X10*3/uL Baso # (Auto) (0.0-0.2) X10*3/uL Abs Immat Gran (auto) (0.00-0.03) X10*3/uL Absolute Neuts (auto) (2.0-8.3) x10*3/uL Absolute Nucleated RBC (0.0-0.012) X10*3/uL Nucleated RBC % (auto) (0.0-0.2) /100WBC VBG pH (7.32-7.43) VBG pCO2 mmHg VBG pO2 mmHg VBG HCO3 (22-26) mmol/L VBG O2 Saturation % VBG Base Excess mmol/L Sodium 137 (135-145) mmol/L Potassium 3.6 D (3.3-5.1) mmol/L Chloride 103 (96-108) mmol/L Carbon Dioxide 21 L (22-29) mmol/L Anion Gap 17 (12-20) BUN 20 H (9-16) mg/dL Creatinine 1.23 (0.5-1.4) mg/dL Estim Creat Clear Calc 82.8 Estimated GFR > 60 POC Glucose 368 H* 251 H (60-115) mg/dL Random Glucose 298 H D (60-115) mg/dL Lactic Acid (0.5-2.0) mmol/L Calcium 8.8 D (8.4-10.2) mg/dL Total Bilirubin (0.0-1.0) mg/dL AST (5-37) U/L ALT (0-40) U/L Alkaline Phosphatase (39-117) U/L Total Protein (6.5-8.0) g/dL Albumin (3.5-5.0) g/dL Lipase (8-78) U/L Acetone, Qual (Negative) Influenza Type A (PCR) (Negative) Influenza Type B (PCR) (Negative) RSV RNA Qual (PCR) (Negative) SARS-CoV-2 RNA (RT-PCR) (Negative) ECG Data Attestation: I personally reviewed and interpreted this ECG as follows: Interpretation: EKG sinus tachycardia at a rate of 105. CT interval 142. QTC 465. Nonischemic/no STEMI Discharge Plan Discharge Clinical Impression: Hyperglycemia, Dehydration, GISSELLE (acute kidney injury) Instructions: Dehydration (ED), Acute Kidney Injury (DC), Diabetic H yperglycemia (ED) Additional Instructions: Your glucose was very elevated today, you need to be monitoring more closely and compliant with your insulin Follow a diabetic diet Please stay hydrated If you are unable to eat or drink, have persistent nausea/vomiting Please return to the emergency department If your glucose is running high and or low please return to the emergency department You need to follow-up with your doctor Prescriptions: No Action metoclopramide HCl 5 mg Tablet 5 mg PO BID PRN (Reason: nausea) Qty: 10 RF: 0 Novolin 70-30 FlexPen U-100 100 unit/mL (70-30) Insulin Pen 50 unit SUBCUT BID RF: 0 Referrals: Papi Olivo MD [Primary Care Provider] - 2 days
[2021-07-16 15:47] LABS: Influenza A PCR NEGATIVE (Negative); Influenza B PCR NEGATIVE (Negative); Resp Syncy Virus RNA Qual PCR NEGATIVE (Negative); SARS COV2 PCR INHOUSE NEGATIVE (Negative)
[2021-07-16 15:48] LABS: Acetone, serum QL Negative (Negative)
[2021-07-16] MEDS: Insulin Regular, Human 100 UNIT/ML 3 ML VIAL 10 UNIT IVPUSH (15:50)
[2021-07-16] MEDS: 0.9 % Sodium Chloride 1,000 ML 999 ML IVCONT ×3 (15:52→18:49)
[2021-07-16 15:55] LABS: Lipase 16 U/L (8-78)
[2021-07-16] MEDS: ondansetron HCL 4 MG/2 ML VIAL IVPUSH (15:55)
[2021-07-16 16:00] LABS: Venous Blood Gas Refer to POC result
[2021-07-16 16:01] LABS: VBG Base Excess -7.9 mmol/L; VBG HCO3 16 mmol/L (22-26); VBG pCO2 31 mmHg; VBG pH 7.32 (7.32-7.43); VBG pO2 71 mmHg
--- NOTE | 2021-07-16 16:04 | PHA.MEDREC ---
med rec complete, no issues Pharmacy Consult ? Medication Reconciliation Pharmacy has completed the medication reconciliation.
[2021-07-16 16:33] LABS: Glucose, Whole Blood 368 mg/dL (60-115)
--- NOTE | 2021-07-16 16:49 | ECG_ITS ---
Test Reason : GENERAL Blood Pressure : / mmHG Vent. Rate : 105 BPM Atrial Rate : 105 BPM P-R Int : 142 ms QRS Dur : 074 ms QT Int : 352 ms P-R-T Axes : 038 034 037 degrees QTc Int : 465 ms Sinus tachycardia Otherwise normal ECG When compared with ECG of 22-JUN-2021 20:03, QT has lengthened Referred By: Melisa Ball Electronically Signed By:Roberto Agee
[2021-07-16] MEDS: Insulin Regular, Human 100 UNIT/ML 3 ML VIAL IVPUSH (16:58)
[2021-07-16] MEDS: Lactated Ringers 1,000 ML 999 ML IV (17:02)
[2021-07-16 17:48] LABS: Glucose, Whole Blood 251 mg/dL (60-115)
[2021-07-16 17:52] LABS: Anion Gap 17 (12-20); Blood Urea Nitrogen 20 mg/dL (9-16); Calcium 8.8 mg/dL (8.4-10.2); Carbon Dioxide 21 mmol/L (22-29); Chloride 103 mmol/L (96-108); Creatinine Clr Calc Pharmacy 82.8; Estimated Glomerular Filt Rate > 60; Glucose Random 298 mg/dL (60-115); Potassium 3.6 mmol/L (3.3-5.1); Sodium 137 mmol/L (135-145)
[2021-07-16 17:57] LABS: Reflex Lactate? Lactic Acid Added
[2021-07-16 18:13] LABS: Lactic Acid 3.2 mmol/L (0.5-2.0)
[2021-07-16 19:03] LABS: Anion Gap 18 (12-20); Blood Urea Nitrogen 18 mg/dL (9-16); Calcium 9.1 mg/dL (8.4-10.2); Carbon Dioxide 20 mmol/L (22-29); Chloride 102 mmol/L (96-108); Creatinine Clr Calc Pharmacy 88.6; Estimated Glomerular Filt Rate > 60; Glucose Random 274 mg/dL (60-115); Potassium 4.2 mmol/L (3.3-5.1); Sodium 136 mmol/L (135-145)
[2021-07-16] MEDS: Insulin Glargine,Hum.rec.anlog 100 UNIT/ML 10 ML VIAL 20 UNIT SUBCUT (19:35)
[2021-07-16 19:38] VITALS: BP 139/88; PULSE 116; RESP 18; TEMP 37; O2SAT 98
[2021-07-16 19:44] LABS: Glucose, Whole Blood 256 mg/dL (60-115)
--- NOTE | 2021-07-16 19:54 | P.HPHOSP_ITS ---
History of Present Illness Date of Service: 07/16/21 Chief Complaint: generalized weakness 26-year-old male with a past medical history of diabetes, gastroparesis, recent history of EGD revealing gastritis, esophagitis, duodenal ulcer; presented to the hospital today with a chief complaint of generalized weakness /body aches/chills. Denies any chest pain or palpitations. Denies any fever cough sputum production. Denies any urinary symptoms. Review of all other systems is negative except mentioned above ER course: Per ER team patient on presentation noted to have elevated anion gap and hyperglycemia on the labs consistent with DKA. Patient was given regular insulin IV push x2; also received IV fluids. With improvement in anion gap and POC glucose on the follow-up; COVID-19 was negative. Patient was also given Lantus 20 units in the ER. Admitted for further management. [facility] Medical History Diabetes Diabetic keto-acidosis Gastroparesis Leukocytosis Pertinent family history: reviewed Social History Household Members: None Housing: Apartment Do you presently have visiting nurse or other home services: No Alcohol intake: current Alcohol intake frequency: does not drink Patient Tobacco Use Status: Never used Tobacco Substance Use Type: Marijuana Advance Directives: Yes Advance Directives on File: Yes Advance Directives Date on File: 01/22/21 service: No Current occupational status: employed Meds Allergies Allergy/AdvReac Type Severity Reaction Status Date / Time passion fruit [PASSION FRUIT] Allergy Unknown UNK Verified 06/22/21 13:43 Active Medications: Current Medications Pharmacy Consult (Consult Rx Perform Med Rec) 1 each MISCELLANE ONCE PRN PRN Reason: Consult order Home Medications Medication Instructions Recorded Confirmed Last Taken Type insulin NPH-regular 70-30 U-100 50 unit SUBCUT BID 07/16/21 07/16/21 Unknown History insulin 100 unit/mL subcutaneous pen (Novolin 70-30 FlexPen U-100 Insulin) Physical Exam Vital Signs and Narrative: Vital Signs: Last Vital Signs Temp 98.6 F 07/16/21 19:38 Pulse 116 H 07/16/21 19:38 Resp 18 07/16/21 19:38 BP 139/88 07/16/21 19:38 Pulse Ox 98 07/16/21 19:38 BMI result Body Mass Index 24.2 Gen: Appears be in no acute distress HEENT: NCAT, Moist mucosa. Pulmonary: Vesicular breath sounds, fair air entry CVS: Normal S1-S2 Abdomen: BS+, Soft, Nontender Extremities: Warm well perfused Neuro: Alert and awake. Results Labs CBC and Chem 7: 07/16/21 14:52 07/16/21 18:45 Labs: Laboratory Results - last 24 hr 07/16/21 07/16/21 07/16/21 14:45 14:52 14:52 MCV 86.1 MCH 28.6 MCHC 33.3 RDW 12.8 Plt Count 321 D MPV 10.2 Immature Gran % (Auto) 0.7 H Neut % (Auto) 80.0 H Lymph % (Auto) 9.7 L [place] % (Auto) 9.5 Eos % (Auto) 0.0 Baso % (Auto) 0.1 Lymph # (Auto) 1.5 [place] # (Auto) 1.4 H Eos # (Auto) 0.0 Baso # (Auto) 0.0 Abs Immat Gran (auto) 0.10 H Absolute Neuts (auto) 12.1 H Absolute Nucleated RBC 0.000 Nucleated RBC % (auto) 0.0 VBG pH VBG pCO2 VBG pO2 VBG HCO3 VBG O2 Saturation VBG Base Excess Anion Gap 28 H Estim Creat Clear Calc 63.6 Estimated GFR 53 POC Glucose 456 H* Random Glucose 500 H* Lactic Acid Calcium 10.6 H D Total Bilirubin 1.0 AST 11 D ALT 13 Alkaline Phosphatase 76 D Total Protein 8.1 H D Albumin 4.9 D Lipase 16 Acetone, Qual Negative Influenza Type A (PCR) Influenza Type B (PCR) RSV RNA Qual (PCR) SARS-CoV-2 RNA (RT-PCR) 07/16/21 07/16/21 07/16/21 14:52 15:48 15:54 MCV MCH MCHC RDW Plt Count MPV Immature Gran % (Auto) Neut % (Auto) Lymph % (Auto) [place] % (Auto) Eos % (Auto) Baso % (Auto) Lymph # (Auto) [place] # (Auto) Eos # (Auto) Baso # (Auto) Abs Immat Gran (auto) Absolute Neuts (auto) Absolute Nucleated RBC Nucleated RBC % (auto) VBG pH 7.32 VBG pCO2 31 VBG pO2 71 VBG HCO3 16 L VBG O2 Saturation 89.0 VBG Base Excess -7.9 Anion Gap Estim Creat Clear Calc Estimated GFR POC Glucose Random Glucose Lactic Acid 3.0 H* Calcium Total Bilirubin AST ALT Alkaline Phosphatase Total Protein Albumin Lipase Acetone, Qual Influenza Type A (PCR) NEGATIVE Influenza Type B (PCR) NEGATIVE RSV RNA Qual (PCR) NEGATIVE SARS-CoV-2 RNA (RT-PCR) NEGATIVE 07/16/21 07/16/21 07/16/21 16:30 17:24 17:44 MCV MCH MCHC RDW Plt Count MPV Immature Gran % (Auto) Neut % (Auto) Lymph % (Auto) [place] % (Auto) Eos % (Auto) Baso % (Auto) Lymph # (Auto) [place] # (Auto) Eos # (Auto) Baso # (Auto) Abs Immat Gran (auto) Absolute Neuts (auto) Absolute Nucleated RBC Nucleated RBC % (auto) VBG pH VBG pCO2 VBG pO2 VBG HCO3 VBG O2 Saturation VBG Base Excess Anion Gap 17 Estim Creat Clear Calc 82.8 Estimated GFR > 60 POC Glucose 368 H* 251 H Random Glucose 298 H D Lactic Acid Calcium 8.8 D Total Bilirubin AST ALT Alkaline Phosphatase Total Protein Albumin Lipase Acetone, Qual Influenza Type A (PCR) Influenza Type B (PCR) RSV RNA Qual (PCR) SARS-CoV-2 RNA (RT-PCR) 07/16/21 07/16/21 07/16/21 17:49 18:45 19:33 MCV MCH MCHC RDW Plt Count MPV Immature Gran % (Auto) Neut % (Auto) Lymph % (Auto) [place] % (Auto) Eos % (Auto) Baso % (Auto) Lymph # (Auto) [place] # (Auto) Eos # (Auto) Baso # (Auto) Abs Immat Gran (auto) Absolute Neuts (auto) Absolute Nucleated RBC Nucleated RBC % (auto) VBG pH VBG pCO2 VBG pO2 VBG HCO3 VBG O2 Saturation VBG Base Excess Anion Gap 18 Estim Creat Clear Calc 88.6 Estimated GFR > 60 POC Glucose 256 H Random Glucose 274 H Lactic Acid 3.2 H* Calcium 9.1 Total Bilirubin AST ALT Alkaline Phosphatase Total Protein Albumin Lipase Acetone, Qual Influenza Type A (PCR) Influenza Type B (PCR) RSV RNA Qual (PCR) SARS-CoV-2 RNA (RT-PCR) Assessment and Plan (1) Gastroparesis: Status: Acute 26-year-old male with a past medical history of diabetes, gastroparesis, recent history of EGD revealing gastritis, esophagitis, duodenal ulcer; presented to the hospital today with a chief complaint of generalized weakness /body aches/chills. DKA: Resolved. Diabetes with hyperglycemia: Patient was the NPH at home. Denies being noncompliant. Will keep the patient on Lantus 20 units b.i.d. and insulin sliding scale. Monitor fingerstick glucose and adjust as needed. GISSELLE: Resolved Denies body aches/ chills: No obvious signs of infection. COVID-19 negative. Follow fever curve. History of esophagitis/ gastritis / Duodenal ulcer: Patient denies any difficulty swallowing. Supportive care. continue home medications. DVT prophylaxis: SCD boots Code status: Full code Quality Stroke Does the patient have a stroke diagnosis?: No VTE Prior VTE?: No VTE Risk Level:: Medical - low VTE Device Contraindication: N/A - Device Ordered VTE Drug Contraindication: Treatment Not Indicated
[2021-07-16 19:56] LABS: Reflex Lactate? Lactic Acid Added
[2021-07-16 20:27] LABS: Appearance Urine CLEAR; Color Urine YELLOW; Glucose Urine UA 500 MG/DL (NEG); Leukocyte Esterase Urine NEG (NEG); Nitrite Urine NEG (NEG); PH 5.5 (5.0-8.0); Specific Gravity - Urine 1.025 (1.005-1.025); Urine Blood NEG (NEG); Urine Ketones >=80 MG/DL (NEG); Urine Protein NEG (NEG-TRACE)
[2021-07-16 20:41] LABS: ~Lactic Acid-LAB USE ONLY 1.6 mmol/L (0.5-2.0)
[2021-07-16 21:00] LABS: Glucose, Whole Blood 248 mg/dL (60-115)
--- NOTE | 2021-07-16 21:13 | MHC.CM.PN ---
CM met with admitted patient with bed assignment pending. A&Ox3. No IMM necessary. HCP on file. HCP/mother Cami Howe ([phone]). Fully vaccinated with Pfizer. 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 Lives alone. Uses DM testing supplies. No services. D/C plan is home without services. Family to provide transportation home. CM to follow for D/C needs.
[2021-07-16] MEDS: Insulin Lispro 100 UNIT/ML 3 ML VIAL SUBCUT (21:20)
[2021-07-16 21:23] VITALS: BP 136/87; PULSE 115; RESP 20; O2SAT 98
[2021-07-17 00:30] VITALS: BP 135/85; PULSE 101; RESP 18; TEMP 37.3; O2SAT 97
[2021-07-17 00:35] LABS: Glucose, Whole Blood 181 mg/dL (60-115)
[2021-07-17 03:37] VITALS: BP 121/64; PULSE 127; RESP 18; TEMP 37.3; O2SAT 97
[2021-07-17 03:44] LABS: Glucose, Whole Blood 224 mg/dL (60-115)
--- NOTE | 2021-07-17 03:57 | PC.NURSE ---
Patient woke up and rang call light requesting RN. Patient requested to have his blood sugar taken and said I feel like it's low , endorsed feeling shaky and nauseous. Dr. Frye paged and is aware of situation, currently awaiting orders to be placed. In meantime, patient is requesting to take a shower, stating the charge nurse said I could . Given that patient is currently tachycardic at 127 bpm and is feeling unwell, patient was informed that he could have a shower later during the day when symptoms have resolved.
--- NOTE | 2021-07-17 04:34 | PC.NURSE ---
took patient to the pod to take a shower.
--- NOTE | 2021-07-17 04:34 | PC.NURSE ---
Pt persistently requesting shower, asking staff member who is family member. Pt brought to shower with unrelated staff member to assist pt and ensure pt safety. Will administer IV fluids upon return to room.
[2021-07-17] MEDS: 0.9 % Sodium Chloride 1,000 ML 75 ML IVCONT (05:11)
[2021-07-17 06:43] LABS: MANUAL DIFF FLAG NO
[2021-07-17 06:45] LABS: Basophils Percent Auto 0.2 % (0-2); Eosinophils Percent Auto 0.1 % (0-4); Hemoglobin 14.2 g/dl (14.0-18.0); Imm Gran Abs Auto 0.04 X10*3/uL (0.00-0.03); Imm Gran Pct Auto 0.3 % (0.0-0.4); Lymphocytes Absolute Auto 1.4 X10*3/uL (1.2-4.9); Lymphocytes Percent Auto 11.3 % (20-40); Mean Corpuscular HGB Conc 33.8 g/dl (31.0-36.0); Mean Corpuscular Volume 85.9 fL (80.0-98.0); Mean Platelet Volume 9.6 fL (9.4-12.4); Monocytes Absolute Auto 1.4 X10*3/uL (0.1-1.2); Monocytes Percent Auto 10.9 % (2-11); Neutrophils Absolute Auto 9.7 x10*3/uL (2.0-8.3); Neutrophils Percent Auto 77.2 % (45-73); Platelet Count 241 X10*3/uL (160-400); Red Blood Count 4.89 X10*6/uL (4.60-5.80); Red Cell Distribution Width 12.6 % (11.0-16.0); White Blood Count 12.5 X10*3/uL (4.8-10.8)
[2021-07-17 07:09] LABS: Anion Gap 17 (12-20); Blood Urea Nitrogen 13 mg/dL (9-16); Calcium 8.9 mg/dL (8.4-10.2); Carbon Dioxide 19 mmol/L (22-29); Chloride 102 mmol/L (96-108); Creatinine Clr Calc Pharmacy 95.2; Estimated Glomerular Filt Rate > 60; Glucose Random 263 mg/dL (60-115); Potassium 4.3 mmol/L (3.3-5.1); Sodium 134 mmol/L (135-145)
[2021-07-17 07:28] VITALS: BP 144/87; PULSE 103; RESP 18; O2SAT 97
[2021-07-17 07:34] LABS: Glucose, Whole Blood 241 mg/dL (60-115)
[2021-07-17] MEDS: Insulin Lispro 100 UNIT/ML 3 ML VIAL SUBCUT (07:36)
--- NOTE | 2021-07-17 12:38 | P.DS_ITS ---
DS: Providers Provider Date of Service: 07/17/21 Date of admission: 07/16/21 19:52 Primary care physician: Papi Olivo MD DS: Diagnosis Discharge Diagnosis (1) Gastroparesis: DS: Summary Hospital Course Hospital Course: Chief Complaint:? generalized weakness ?26-year-old male with a past medical history of diabetes, gastroparesis, recent history of EGD revealing gastritis, esophagitis, duodenal ulcer; presented to the hospital today with a chief complaint of generalized weakness /body aches/chills. Denies any chest pain or palpitations.? Denies any fever cough sputum production.? Denies any urinary symptoms.? Review of all other systems is negative except mentioned above ER course: Per ER team patient on presentation noted to have elevated anion gap and hyperglycemia on the labs consistent with DKA.? Patient was given regular insulin IV push x2; also received IV fluids.? With improvement in anion gap and POC glucose on the follow-up; COVID-19 was negative.? Patient was also given Lantus 20 units in the ER.? Admitted for further management. Hospital course: Patient was admitted and treated with IVF and insulin and Anion gap has closed, patient is feeling better. Unfortunately he states that he doesn't want to eat hospital food. He is advised to take his medication including insulin, check sugars as recommended. Time Spent with Patient Time attestation: Total time spent providing and/or coordinating discharge services: Discharge coordination time: Greater than 30 minutes Quality: Stroke Does the patient have a stroke diagnosis?: No Physical Exam Verdana 4l Vital Signs: Verdana 4d Verdana 4d Vital Signs: Verdana 4d Verdana 4Bd Last Vital Signs Verdana 4d Road Design Engineer New 4d Road Design Engineer New 4d Temp 99.1 F 07/17/21 03:37 Road Design Engineer New 4d Pulse 103 H 07/17/21 07:28 Road Design Engineer New 4d Resp 18 07/17/21 07:28 BP 144/87 H 07/17/21 07:28 Pulse Ox 97 07/17/21 07:28 BMI result Body Mass Index 24.2 DS: Data Data Completed and Pending Completed studies during hospitalization [Text1]: Procedures Excision of Stomach, Pylorus, Via Natural or Artificial Opening Endoscopic, Diagnostic (06/22/21) Labs on day of discharge: Laboratory Results - last 24 hr 07/16/21 07/16/21 07/16/21 14:45 14:52 14:52 WBC 15.1 H RBC 5.69 Hgb 16.3 Hct 49.0 D MCV 86.1 MCH 28.6 MCHC 33.3 RDW 12.8 Plt Count 321 D MPV 10.2 Immature Gran % (Auto) 0.7 H Neut % (Auto) 80.0 H Lymph % (Auto) 9.7 L Island % (Auto) 9.5 Eos % (Auto) 0.0 Baso % (Auto) 0.1 Lymph # (Auto) 1.5 Island # (Auto) 1.4 H Eos # (Auto) 0.0 Baso # (Auto) 0.0 Abs Immat Gran (auto) 0.10 H Absolute Neuts (auto) 12.1 H Absolute Nucleated RBC 0.000 Nucleated RBC % (auto) 0.0 VBG pH VBG pCO2 VBG pO2 VBG HCO3 VBG O2 Saturation VBG Base Excess Sodium 132 L Potassium 5.3 H D Chloride 91 L Carbon Dioxide 18 L Anion Gap 28 H BUN 22 H Creatinine 1.60 H Estim Creat Clear Calc 63.6 Estimated GFR 53 POC Glucose 456 H* Random Glucose 500 H* Lactic Acid Lactic Acid Fup @ 2Hr Calcium 10.6 H D Total Bilirubin 1.0 AST 11 D ALT 13 Alkaline Phosphatase 76 D Total Protein 8.1 H D Albumin 4.9 D Lipase 16 Urine Color Urine Appearance Urine pH Ur Specific [place] Urine Protein Urine Glucose (UA) Urine Ketones Urine Blood Urine Nitrite Ur Leukocyte Esterase Acetone, Qual Negative Influenza Type A (PCR) Influenza Type B (PCR) RSV RNA Qual (PCR) SARS-CoV-2 RNA (RT-PCR) 07/16/21 07/16/21 07/16/21 14:52 15:48 15:54 WBC RBC Hgb Hct MCV MCH MCHC RDW Plt Count MPV Immature Gran % (Auto) Neut % (Auto) Lymph % (Auto) Island % (Auto) Eos % (Auto) Baso % (Auto) Lymph # (Auto) Island # (Auto) Eos # (Auto) Baso # (Auto) Abs Immat Gran (auto) Absolute Neuts (auto) Absolute Nucleated RBC Nucleated RBC % (auto) VBG pH 7.32 VBG pCO2 31 VBG pO2 71 VBG HCO3 16 L VBG O2 Saturation 89.0 VBG Base Excess -7.9 Sodium Potassium Chloride Carbon Dioxide Anion Gap BUN Creatinine Estim Creat Clear Calc Estimated GFR POC Glucose Random Glucose Lactic Acid 3.0 H* Lactic Acid Fup @ 2Hr Calcium Total Bilirubin AST ALT Alkaline Phosphatase Total Protein Albumin Lipase Urine Color Urine Appearance Urine pH Ur Specific [place] Urine Protein Urine Glucose (UA) Urine Ketones Urine Blood Urine Nitrite Ur Leukocyte Esterase Acetone, Qual Influenza Type A (PCR) NEGATIVE Influenza Type B (PCR) NEGATIVE RSV RNA Qual (PCR) NEGATIVE SARS-CoV-2 RNA (RT-PCR) NEGATIVE 07/16/21 07/16/21 07/16/21 16:30 17:24 17:44 WBC RBC Hgb Hct MCV MCH MCHC RDW Plt Count MPV Immature Gran % (Auto) Neut % (Auto) Lymph % (Auto) Island % (Auto) Eos % (Auto) Baso % (Auto) Lymph # (Auto) Island # (Auto) Eos # (Auto) Baso # (Auto) Abs Immat Gran (auto) Absolute Neuts (auto) Absolute Nucleated RBC Nucleated RBC % (auto) VBG pH VBG pCO2 VBG pO2 VBG HCO3 VBG O2 Saturation VBG Base Excess Sodium 137 Potassium 3.6 D Chloride 103 Carbon Dioxide 21 L Anion Gap 17 BUN 20 H Creatinine 1.23 Estim Creat Clear Calc 82.8 Estimated GFR > 60 POC Glucose 368 H* 251 H Random Glucose 298 H D Lactic Acid Lactic Acid Fup @ 2Hr Calcium 8.8 D Total Bilirubin AST ALT Alkaline Phosphatase Total Protein Albumin Lipase Urine Color Urine Appearance Urine pH Ur Specific [place] Urine Protein Urine Glucose (UA) Urine Ketones Urine Blood Urine Nitrite Ur Leukocyte Esterase Acetone, Qual Influenza Type A (PCR) Influenza Type B (PCR) RSV RNA Qual (PCR) SARS-CoV-2 RNA (RT-PCR) 07/16/21 07/16/21 07/16/21 17:49 18:45 19:33 WBC RBC Hgb Hct MCV MCH MCHC RDW Plt Count MPV Immature Gran % (Auto) Neut % (Auto) Lymph % (Auto) Island % (Auto) Eos % (Auto) Baso % (Auto) Lymph # (Auto) Island # (Auto) Eos # (Auto) Baso # (Auto) Abs Immat Gran (auto) Absolute Neuts (auto) Absolute Nucleated RBC Nucleated RBC % (auto) VBG pH VBG pCO2 VBG pO2 VBG HCO3 VBG O2 Saturation VBG Base Excess Sodium 136 Potassium 4.2 Chloride 102 Carbon Dioxide 20 L Anion Gap 18 BUN 18 H Creatinine 1.15 Estim Creat Clear Calc 88.6 Estimated GFR > 60 POC Glucose 256 H Random Glucose 274 H Lactic Acid 3.2 H* Lactic Acid Fup @ 2Hr Calcium 9.1 Total Bilirubin AST ALT Alkaline Phosphatase Total Protein Albumin Lipase Urine Color Urine Appearance Urine pH Ur Specific [place] Urine Protein Urine Glucose (UA) Urine Ketones Urine Blood Urine Nitrite Ur Leukocyte Esterase Acetone, Qual Influenza Type A (PCR) Influenza Type B (PCR) RSV RNA Qual (PCR) SARS-CoV-2 RNA (RT-PCR) 07/16/21 07/16/21 07/16/21 20:17 20:20 20:56 WBC RBC Hgb Hct MCV MCH MCHC RDW Plt Count MPV Immature Gran % (Auto) Neut % (Auto) Lymph % (Auto) Island % (Auto) Eos % (Auto) Baso % (Auto) Lymph # (Auto) Island # (Auto) Eos # (Auto) Baso # (Auto) Abs Immat Gran (auto) Absolute Neuts (auto) Absolute Nucleated RBC Nucleated RBC % (auto) VBG pH VBG pCO2 VBG pO2 VBG HCO3 VBG O2 Saturation VBG Base Excess Sodium Potassium Chloride Carbon Dioxide Anion Gap BUN Creatinine Estim Creat Clear Calc Estimated GFR POC Glucose 248 H Random Glucose Lactic Acid Lactic Acid Fup @ 2Hr 1.6 Calcium Total Bilirubin AST ALT Alkaline Phosphatase Total Protein Albumin Lipase Urine Color YELLOW Urine Appearance CLEAR Urine pH 5.5 Ur Specific [place] 1.025 Urine Protein NEG Urine Glucose (UA) 500 H Urine Ketones >=80 Urine Blood NEG Urine Nitrite NEG Ur Leukocyte Esterase NEG Acetone, Qual Influenza Type A (PCR) Influenza Type B (PCR) RSV RNA Qual (PCR) SARS-CoV-2 RNA (RT-PCR) 07/17/21 07/17/21 07/17/21 00:29 03:36 06:34 WBC 12.5 H RBC 4.89 Hgb 14.2 Hct 42.0 MCV 85.9 MCH 29.0 MCHC 33.8 RDW 12.6 Plt Count 241 MPV 9.6 Immature Gran % (Auto) 0.3 Neut % (Auto) 77.2 H Lymph % (Auto) 11.3 L Island % (Auto) 10.9 Eos % (Auto) 0.1 Baso % (Auto) 0.2 Lymph # (Auto) 1.4 Island # (Auto) 1.4 H Eos # (Auto) 0.0 Baso # (Auto) 0.0 Abs Immat Gran (auto) 0.04 H Absolute Neuts (auto) 9.7 H Absolute Nucleated RBC 0.000 Nucleated RBC % (auto) 0.0 VBG pH VBG pCO2 VBG pO2 VBG HCO3 VBG O2 Saturation VBG Base Excess Sodium Potassium Chloride Carbon Dioxide Anion Gap BUN Creatinine Estim Creat Clear Calc Estimated GFR POC Glucose 181 H 224 H Random Glucose Lactic Acid Lactic Acid Fup @ 2Hr Calcium Total Bilirubin AST ALT Alkaline Phosphatase Total Protein Albumin Lipase Urine Color Urine Appearance Urine pH Ur Specific [place] Urine Protein Urine Glucose (UA) Urine Ketones Urine Blood Urine Nitrite Ur Leukocyte Esterase Acetone, Qual Influenza Type A (PCR) Influenza Type B (PCR) RSV RNA Qual (PCR) SARS-CoV-2 RNA (RT-PCR) 07/17/21 07/17/21 06:34 07:31 WBC RBC Hgb Hct MCV MCH MCHC RDW Plt Count MPV Immature Gran % (Auto) Neut % (Auto) Lymph % (Auto) Island % (Auto) Eos % (Auto) Baso % (Auto) Lymph # (Auto) Island # (Auto) Eos # (Auto) Baso # (Auto) Abs Immat Gran (auto) Absolute Neuts (auto) Absolute Nucleated RBC Nucleated RBC % (auto) VBG pH VBG pCO2 VBG pO2 VBG HCO3 VBG O2 Saturation VBG Base Excess Sodium 134 L Potassium 4.3 Chloride 102 Carbon Dioxide 19 L Anion Gap 17 BUN 13 Creatinine 1.07 Estim Creat Clear Calc 95.2 Estimated GFR > 60 POC Glucose 241 H Random Glucose 263 H Lactic Acid Lactic Acid Fup @ 2Hr Calcium 8.9 Total Bilirubin AST ALT Alkaline Phosphatase Total Protein Albumin Lipase Urine Color Urine Appearance Urine pH Ur Specific [place] Urine Protein Urine Glucose (UA) Urine Ketones Urine Blood Urine Nitrite Ur Leukocyte Esterase Acetone, Qual Influenza Type A (PCR) Influenza Type B (PCR) RSV RNA Qual (PCR) SARS-CoV-2 RNA (RT-PCR) Discharge Plan Discharge Anticipated Discharge Date/Time: 07/17/21 13:37 Patient Disposition: Home, Self-Care Discharge Diagnosis: DKA Referrals: Papi Olivo MD [Primary Care Provider] - 2 days Discharge Medications: New ondansetron 4 mg tablet,disintegrating 4 mg PO Q8H PRN (Reason: nausea and vomiting) 4 Days Qty: 20 0RF Changed Novolin 70-30 FlexPen U-100 100 unit/mL (70-30) Insulin Pen 55 unit SUBCUT BID Qty: 0 0RF No Action omeprazole 20 mg Capsule,Delayed Release(Dr/Ec) 20 mg PO DAILY@0630 0RF metoclopramide HCl [Reglan] 10 mg tablet 10 mg PO Q6H PRN (Reason: nausea and vomiting) Qty: 10 0RF Discharge Orders: Discharge Order (Routine); Ordered 07/17/21 Ordered By: Clyde Escalera Diet: advance to usual diet and diabetic diet Activity on Discharge: As tolerated Stand Alone Forms: Patient Portal Discharge page, Work/School Release Activity Restrictions/Additional Instructions: Your glucose was very elevated today, you need to be monitoring more closely and compliant with your insulin Follow a diabetic diet Please stay hydrated If you are unable to eat or drink, have persistent nausea/vomiting Please return to the emergency department If your glucose is running high and or low please return to the emergency department You need to follow-up with your doctor Care Plan Goals: Prevent rehospitalization Health Concerns: Diabetes, DKA with frequent hospitalization Plan of Treatment: Continue taking insulin as recommended and follow up with [facility] endocrinology--insulin is being increased by 5 units twice a day Assessment: See above Discharge Date/Time: 07/17/21 14:53
[2021-07-17] MEDS: Acetaminophen 325 MG TABLET 650 MG PO (14:48)
[2021-07-17 18:21] LABS: Glucose, Whole Blood 199 mg/dL (60-115)
== END 2021-07-17 14:53 | disposition home or self-care (01) | DRG 48 ==
LOC: HO.ED 19:27 → HO.EDOVER 20:01
PROVIDERS: Physician Assistant; Admitting Provider Hospitalist; Emergency Provider Emergency Medicine; PCP Internal Medicine; Visit Provider Internal Medicine
DX: E10.43 Type 1 diabetes mellitus with diabetic autonomic (poly)neuropathy (principal); N17.9 Acute kidney failure, unspecified; E87.2 Acidosis; K31.84 Gastroparesis; E10.10 Type 1 diabetes mellitus with ketoacidosis without coma; E86.0 Dehydration; Z20.822 Contact with and (suspected) exposure to COVID-19; Z79.4 Long term (current) use of insulin; Z79.899 Other long term (current) drug therapy
CPT/HCPCS: 0241U; 36415; 80048; 80053; 81003; 82009; 82803; 82947; 83605; 83690; 85025; 93005; 99219; 99285; J2405

== ENCOUNTER 2021-08-14 14:41 | Emergency (ER) | payer OTHER, SELFPAY ==
--- NOTE | ~2021-08-14 | XR_ITS ---
EXAMINATION: XR CHEST CLINICAL INFORMATION: Shortness of breath COMPARISON: Previous chest x-ray March 2021 TECHNIQUE: Frontal view of the chest was obtained. FINDINGS: No significant abnormality is noted involving the heart, lungs, mediastinum, bony thorax or soft tissues. XR/XR chest 1V IMPRESSION: Unremarkable examination.
[2021-08-14 14:51] VITALS: BP 156/112; PULSE 91; O2SAT 100
[2021-08-14 14:53] VITALS: BP 144/78; PULSE 81; RESP 18; TEMP 36.6; O2SAT 97; BMI 24.2
--- NOTE | 2021-08-14 15:04 | ECG_ITS ---
Test Reason : Abd Pain Blood Pressure : / mmHG Vent. Rate : 066 BPM Atrial Rate : 066 BPM P-R Int : 148 ms QRS Dur : 090 ms QT Int : 400 ms P-R-T Axes : 035 024 019 degrees QTc Int : 419 ms Sinus rhythm with marked sinus arrhythmia Otherwise normal ECG When compared with ECG of 16-JUL-2021 17:36, Vent. rate has decreased BY 39 BPM Referred By: Melisa Ball Electronically Signed By:YANI HERNANDEZ MD
--- NOTE | 2021-08-14 15:11 | ED.ABDPAIN ---
HPI - Abdominal Pain General Chief Complaint: Abdominal Pain Stated Complaint: abd pain/vomiting Time Seen by Provider: 08/14/21 14:44 Source: patient and EMS Mode of arrival: EMS History of Present Illness HPI narrative: 26-year-old male with a PMHx type 1 DM, gastroparesis, recurrent DKA, presenting to the ED complaining of chills, diffuse abdominal discomfort, nausea, and vomiting since yesterday. Reports symptoms similar to prior DKA. Admits glucose has been greater than 300 at home, with inability to tolerate p.o. since yesterday. Also reports mild SOB. Denies fever, CP, diarrhea, dysuria/hematuria, cough Reports marijuana use, denies other illicit drugs or EtOH MD elicited complaint: abdominal pain Onset (ago): day(s) Related Data Home Medications Medication Instructions Recorded Confirmed omeprazole 20 mg capsule,delayed 20 mg PO DAILY@0630 08/14/21 08/14/21 release Previous Rx's Medication Instructions Recorded insulin NPH-regular 70-30 U-100 55 unit (0.55 mL) SUBCUT BID #0 ml 07/17/21 insulin 100 unit/mL subcutaneous pen (Novolin 70-30 FlexPen U-100 Insulin) ondansetron 4 mg disintegrating 4 mg PO Q8H PRN 4 Days #20 tab 07/17/21 tablet metoclopramide HCl 10 mg tablet 10 mg PO Q6H PRN #10 tab 08/14/21 (Reglan) Allergies Allergy/AdvReac Type Severity Reaction Status Date / Time passion fruit [PASSION FRUIT] Allergy Unknown UNK Verified 06/22/21 13:43 Review of Systems Review of Systems Constitutional: No Fever, + Chills, No Fatigue, No Malaise ENT/Mouth:No Ear Pain, No Nasal Congestion, No sore throat, No Rhinorrhea Eyes: No Eye Pain, No Swelling, No Vision Changes Cardiovascular: No Chest Pain, No SOB, No Edema, No Palpitations Respiratory: No Cough, No Dyspnea Gastrointestinal: + Nausea, + Vomiting, No Diarrhea, No Constipation, + Abdominal pain Genitourinary: No Dysuria, No Urinary Frequency, No Hematuria, No Flank Pain, No Urinary Flow Changes Musculoskeletal: No joint pain, No Myalgias Skin: No Skin Lesions, No rash Neuro: No Weakness, No Numbness, No Dizziness, No Headache Yes all other systems are reviewed and are negative Physical Exam Vital Signs: Vital Signs: Last Vital Signs Temp 98 F 08/14/21 14:53 Pulse 76 08/14/21 18:21 Resp 16 08/14/21 18:21 BP 147/99 H 08/14/21 18:21 Pulse Ox 99 08/14/21 18:21 BMI result Body Mass Index 24.2 Const: General: cooperative and no acute distress Orientation/consciousness: patient oriented x3 Limitations: no limitations HENMT: Head: Yes normal to inspection and Yes atraumatic Ears: hearing grossly normal bilaterally General nose exam: Normal external nose present Face and sinus: Yes normal facial exam Eyes: General: appearance normal, both eyes and all related structures EOM: EOMs intact bilaterally Neck: Neck: Yes normal visual inspection and Yes no meningeal signs Resp: Effort & Inspection: normal respiratory effort Auscultation: clear to auscultation bilaterally, no rales, no rhonchi and no wheezes Cardio: Rate: regular rate Heart sounds: S1 normal heart sound present and S2 normal heart sound present GI: Inspection: Yes normal to inspection Palpation (GI): Soft to palpation, nontender, no guarding and not rigid : General: Yes no CVA tenderness Back/Spine/Pelvis: Back: no CVA tenderness Skin: Rashes: no rashes Wounds: no wounds Neuro: General: patient oriented x3 and no meningeal signs Gait exam (Neuro): Normal gait present Extrem: General: Yes normal to inspection Course Course Course Narrative: -1600-- no leukocytosis, sodium 133 >corrected for hyperglycemia 136, glucose 299, no anion gap, lactic acidosis of 2.2 likely from dehydration/ gastroparesis, no evidence of DKA or severe sepsis at this time XR chest 1V IMPRESSION: Unremarkable examination. -1710-- labs discussed. Will PO challenge. Patient has had no episodes of emesis since ED arrival -175--repeat POC -1911--repeat lactic acid 1.4. Patient tolerating p.o. in the ED without nausea or vomiting. Discussed worrisome signs and symptoms and strict return precautions & reccommended avoidance of marijuana as likely contributes to symptoms and stressed importance of pushing p.o. fluids. Patient verbalized understanding feel safe for discharge home with this time MDM - Abdominal Pain MDM Narrative Medical decision making narrative: 26-year-old male with a PMHx type 1 DM, gastroparesis, recurrent DKA, presenting to the ED complaining of chills, diffuse abdominal discomfort, nausea, and vomiting since yesterday. on exam vital signs stable, NAD, nontoxic, abdomen soft/ nontender. Concern for hyperglycemia/DKA vs gastroparesis vs dehydration. Rule out metabolic and infectious etiology. Low concern for appendicitis/diverticulitis or pancreatitis at this time Plan: EKG, labs, UA, CXR, IVF, Sx Tx, re-evaluate Differential Diagnosis Differential diagnosis: Likely abdominal pain, gastroenteritis and gastritis Medical Records Attestation: I reviewed the patient's medical records. Lab Data Attestation: I reviewed the patient's lab results. Result diagrams: 08/14/21 15:24 08/14/21 15:24 Labs: Lab Results 08/14/21 08/14/21 08/14/21 Range/Units 15:24 15:24 15:24 WBC 8.5 (4.8-10.8) X10*3/uL RBC 5.67 (4.60-5.80) X10*6/uL Hgb 16.4 (14.0-18.0) g/dl Hct 48.4 (42.0-52.0) % MCV 85.4 (80.0-98.0) fL MCH 28.9 (27.0-33.0) pg MCHC 33.9 (31.0-36.0) g/dl RDW 12.8 (11.0-16.0) % Plt Count 262 (160-400) X10*3/uL MPV 9.9 (9.4-12.4) fL Immature Gran % (Auto) 0.2 (0.0-0.4) % Neut % (Auto) 73.8 H (45-73) % Lymph % (Auto) 15.5 L (20-40) % [place] % (Auto) 9.9 (2-11) % Eos % (Auto) 0.4 (0-4) % Baso % (Auto) 0.2 (0-2) % Lymph # (Auto) 1.3 (1.2-4.9) X10*3/uL [place] # (Auto) 0.8 (0.1-1.2) X10*3/uL Eos # (Auto) 0.0 (0.0-0.4) X10*3/uL Baso # (Auto) 0.0 (0.0-0.2) X10*3/uL Abs Immat Gran (auto) 0.02 (0.00-0.03) X10*3/uL Absolute Neuts (auto) 6.3 (2.0-8.3) x10*3/uL Absolute Nucleated RBC 0.000 (0.0-0.012) X10*3/uL Nucleated RBC % (auto) 0.0 (0.0-0.2) /100WBC VBG pH (7.32-7.43) VBG pCO2 mmHg VBG pO2 mmHg VBG HCO3 (22-26) mmol/L VBG O2 Saturation % VBG Base Excess mmol/L Sodium 133 L (135-145) mmol/L Potassium 4.0 (3.3-5.1) mmol/L Chloride 94 L (96-108) mmol/L Carbon Dioxide 29 (22-29) mmol/L Anion Gap 14 (12-20) BUN 17 H (9-16) mg/dL Creatinine 1.27 (0.5-1.4) mg/dL Estim Creat Clear Calc 80.2 Estimated GFR > 60 POC Glucose (60-115) mg/dL Random Glucose 299 H (60-115) mg/dL Lactic Acid 2.2 H* (0.5-2.0) mmol/L Lactic Acid F/U @ 2Hr (0.5-2.0) mmol/L Calcium 10.0 D (8.4-10.2) mg/dL Magnesium 2.1 (1.6-2.6) mg/dL Total Bilirubin 0.6 (0.0-1.0) mg/dL Direct Bilirubin 0.2 (0.0-0.5) mg/dL AST 13 (5-37) U/L ALT 10 (0-40) U/L Alkaline Phosphatase 60 D (39-117) U/L Total Protein 7.1 (6.5-8.0) g/dL Albumin 4.2 (3.5-5.0) g/dL Lipase 17 (8-78) U/L Acetone, Qual Negative (Negative) COVID-19 (EARLINE) (Negative) COVID-19 Clin Com 08/14/21 08/14/21 08/14/21 Range/Units 15:24 15:30 15:38 WBC (4.8-10.8) X10*3/uL RBC (4.60-5.80) X10*6/uL Hgb (14.0-18.0) g/dl Hct (42.0-52.0) % MCV (80.0-98.0) fL MCH (27.0-33.0) pg MCHC (31.0-36.0) g/dl RDW (11.0-16.0) % Plt Count (160-400) X10*3/uL MPV (9.4-12.4) fL Immature Gran % (Auto) (0.0-0.4) % Neut % (Auto) (45-73) % Lymph % (Auto) (20-40) % [place] % (Auto) (2-11) % Eos % (Auto) (0-4) % Baso % (Auto) (0-2) % Lymph # (Auto) (1.2-4.9) X10*3/uL [place] # (Auto) (0.1-1.2) X10*3/uL Eos # (Auto) (0.0-0.4) X10*3/uL Baso # (Auto) (0.0-0.2) X10*3/uL Abs Immat Gran (auto) (0.00-0.03) X10*3/uL Absolute Neuts (auto) (2.0-8.3) x10*3/uL Absolute Nucleated RBC (0.0-0.012) X10*3/uL Nucleated RBC % (auto) (0.0-0.2) /100WBC VBG pH 7.41 (7.32-7.43) VBG pCO2 48 mmHg VBG pO2 37 mmHg VBG HCO3 31 H (22-26) mmol/L VBG O2 Saturation 54.0 % VBG Base Excess 5.4 mmol/L Sodium (135-145) mmol/L Potassium (3.3-5.1) mmol/L Chloride (96-108) mmol/L Carbon Dioxide (22-29) mmol/L Anion Gap (12-20) BUN (9-16) mg/dL Creatinine (0.5-1.4) mg/dL Estim Creat Clear Calc Estimated GFR POC Glucose 241 H (60-115) mg/dL Random Glucose (60-115) mg/dL Lactic Acid (0.5-2.0) mmol/L Lactic Acid F/U @ 2Hr (0.5-2.0) mmol/L Calcium (8.4-10.2) mg/dL Magnesium (1.6-2.6) mg/dL Total Bilirubin (0.0-1.0) mg/dL Direct Bilirubin (0.0-0.5) mg/dL AST (5-37) U/L ALT (0-40) U/L Alkaline Phosphatase (39-117) U/L Total Protein (6.5-8.0) g/dL Albumin (3.5-5.0) g/dL Lipase (8-78) U/L Acetone, Qual (Negative) COVID-19 (EARLINE) Negative (Negative) COVID-19 Clin Com See Note 08/14/21 08/14/21 Range/Units 17:54 18:19 WBC (4.8-10.8) X10*3/uL RBC (4.60-5.80) X10*6/uL Hgb (14.0-18.0) g/dl Hct (42.0-52.0) % MCV (80.0-98.0) fL MCH (27.0-33.0) pg MCHC (31.0-36.0) g/dl RDW (11.0-16.0) % Plt Count (160-400) X10*3/uL MPV (9.4-12.4) fL Immature Gran % (Auto) (0.0-0.4) % Neut % (Auto) (45-73) % Lymph % (Auto) (20-40) % [place] % (Auto) (2-11) % Eos % (Auto) (0-4) % Baso % (Auto) (0-2) % Lymph # (Auto) (1.2-4.9) X10*3/uL [place] # (Auto) (0.1-1.2) X10*3/uL Eos # (Auto) (0.0-0.4) X10*3/uL Baso # (Auto) (0.0-0.2) X10*3/uL Abs Immat Gran (auto) (0.00-0.03) X10*3/uL Absolute Neuts (auto) (2.0-8.3) x10*3/uL Absolute Nucleated RBC (0.0-0.012) X10*3/uL Nucleated RBC % (auto) (0.0-0.2) /100WBC VBG pH (7.32-7.43) VBG pCO2 mmHg VBG pO2 mmHg VBG HCO3 (22-26) mmol/L VBG O2 Saturation % VBG Base Excess mmol/L Sodium (135-145) mmol/L Potassium (3.3-5.1) mmol/L Chloride (96-108) mmol/L Carbon Dioxide (22-29) mmol/L Anion Gap (12-20) BUN (9-16) mg/dL Creatinine (0.5-1.4) mg/dL Estim Creat Clear Calc Estimated GFR POC Glucose 90 (60-115) mg/dL Random Glucose (60-115) mg/dL Lactic Acid (0.5-2.0) mmol/L Lactic Acid F/U @ 2Hr 1.4 (0.5-2.0) mmol/L Calcium (8.4-10.2) mg/dL Magnesium (1.6-2.6) mg/dL Total Bilirubin (0.0-1.0) mg/dL Direct Bilirubin (0.0-0.5) mg/dL AST (5-37) U/L ALT (0-40) U/L Alkaline Phosphatase (39-117) U/L Total Protein (6.5-8.0) g/dL Albumin (3.5-5.0) g/dL Lipase (8-78) U/L Acetone, Qual (Negative) COVID-19 (EARLINE) (Negative) COVID-19 Clin Com ECG Data Attestation: I personally reviewed and interpreted this ECG as follows: ECG interpretation date: 08/14/21 ECG interpretation time: 04:07 Interpretation: EKG sinus rhythm with sinus arrhythmia at a rate of 66. Pr interval 148. QTC 419. No STEMI Discharge Plan Discharge Clinical Impression: Diabetic gastroparesis Patient Disposition: Home, Self-Care Instructions: Gastroparesis (ED) Additional Instructions: Your blood work and chest x-ray were reassuring today in the emergency department It is important that you are monitoring her glucose as well as pushing oral fluids If you are unable to eat or drink, persistent nausea/vomiting, persistent abdominal pain, or developed fever please return to the ED immediately Please follow-up with her doctor in 2 days Reglan as an antinausea medication, take as needed Prescriptions: New metoclopramide HCl [Reglan] 10 mg tablet 10 mg PO Q6H PRN (Reason: nausea and vomiting) Qty: 10 RF: 0 No Action Novolin 70-30 FlexPen U-100 100 unit/mL (70-30) Insulin Pen 55 unit SUBCUT BID Qty: 0 RF: 0 ondansetron 4 mg tablet,disintegrating 4 mg PO Q8H PRN (Reason: nausea and vomiting) 4 Days Qty: 20 RF: 0 omeprazole 20 mg Capsule,Delayed Release(Dr/Ec) 20 mg PO DAILY@0630 RF: 0 Referrals: Papi Olivo MD [Primary Care Provider] - 2 days [facility] Past Medical History Attestation statement: The following information was validated with the patient. Medical History Diabetes Diabetic keto-acidosis Gastroparesis Leukocytosis Social History Social History Household Members: None Housing: Apartment Do you presently have visiting nurse or other home services: No Alcohol intake: current Alcohol intake frequency: holidays/special occasions only Patient Tobacco Use Status: Never used Tobacco Substance Use Type: Marijuana Advance Directives: Yes Advance Directives on File: Yes Advance Directives Date on File: 01/22/21 service: No Current occupational status: employed
[2021-08-14] MEDS: 0.9 % Sodium Chloride 1,000 ML 999 ML IV ×2 (15:28→16:39)
[2021-08-14] MEDS: ondansetron HCL 4 MG/2 ML VIAL IVPUSH (15:29)
[2021-08-14] MEDS: Famotidine/PF 20 MG/2 ML VIAL IVPUSH (15:29)
--- NOTE | 2021-08-14 15:31 | PC.NURSE ---
medicated as ordered, refused maalox,
[2021-08-14 15:32] LABS: MANUAL DIFF FLAG NO
[2021-08-14 15:33] LABS: Basophils Percent Auto 0.2 % (0-2); Eosinophils Percent Auto 0.4 % (0-4); Hematocrit 48.4 % (42.0-52.0); Hemoglobin 16.4 g/dl (14.0-18.0); Imm Gran Abs Auto 0.02 X10*3/uL (0.00-0.03); Imm Gran Pct Auto 0.2 % (0.0-0.4); Lymphocytes Absolute Auto 1.3 X10*3/uL (1.2-4.9); Lymphocytes Percent Auto 15.5 % (20-40); Mean Corpuscular HGB Conc 33.9 g/dl (31.0-36.0); Mean Corpuscular Hemoglobin 28.9 pg (27.0-33.0); Mean Corpuscular Volume 85.4 fL (80.0-98.0); Mean Platelet Volume 9.9 fL (9.4-12.4); Monocytes Absolute Auto 0.8 X10*3/uL (0.1-1.2); Monocytes Percent Auto 9.9 % (2-11); Neutrophils Absolute Auto 6.3 x10*3/uL (2.0-8.3); Neutrophils Percent Auto 73.8 % (45-73); Platelet Count 262 X10*3/uL (160-400); Red Blood Count 5.67 X10*6/uL (4.60-5.80); Red Cell Distribution Width 12.8 % (11.0-16.0); White Blood Count 8.5 X10*3/uL (4.8-10.8)
[2021-08-14 15:36] LABS: VBG Base Excess 5.4 mmol/L; VBG HCO3 31 mmol/L (22-26); VBG pCO2 48 mmHg; VBG pH 7.41 (7.32-7.43); VBG pO2 37 mmHg
[2021-08-14 15:38] LABS: Venous Blood Gas Refer to POC result
[2021-08-14 15:43] LABS: Glucose, Whole Blood 241 mg/dL (60-115)
--- NOTE | 2021-08-14 15:45 | PHA.MEDREC ---
Pharmacy Consult ? Medication Reconciliation Pharmacy has completed the medication reconciliation. Spoke with patient in ED.
[2021-08-14 15:52] LABS: Alanine Aminotransferase 10 U/L (0-40); Albumin Level 4.2 g/dL (3.5-5.0); Alkaline Phosphatase 60 U/L (39-117); Anion Gap 14 (12-20); Aspartate Amino Transferase 13 U/L (5-37); Bilirubin Direct 0.2 mg/dL (0.0-0.5); Bilirubin Total 0.6 mg/dL (0.0-1.0); Blood Urea Nitrogen 17 mg/dL (9-16); Carbon Dioxide 29 mmol/L (22-29); Chloride 94 mmol/L (96-108); Creatinine Clr Calc Pharmacy 80.2; Estimated Glomerular Filt Rate > 60; Glucose Random 299 mg/dL (60-115); Lipase 17 U/L (8-78); Magnesium 2.1 mg/dL (1.6-2.6); Sodium 133 mmol/L (135-145); Total Protein 7.1 g/dL (6.5-8.0)
[2021-08-14 15:53] LABS: Lactic Acid 2.2 mmol/L (0.5-2.0)
[2021-08-14 16:03] LABS: COVID-19 Test Negative (Negative)
[2021-08-14] MEDS: Insulin Regular, Human 100 UNIT/ML 3 ML VIAL IVPUSH (16:41)
[2021-08-14 16:45] VITALS: PULSE 66; RESP 19; O2SAT 97
--- NOTE | 2021-08-14 16:47 | PC.NURSE ---
pt states abd pain improved but still present, medicated as ordered w 2nd ns bolus and insulin
[2021-08-14 17:20] LABS: Acetone, serum QL Negative (Negative)
[2021-08-14 17:30] LABS: Reflex Lactate? Lactic Acid Added
[2021-08-14 17:59] LABS: Glucose, Whole Blood 90 mg/dL (60-115)
[2021-08-14] MEDS: diphenhydrAMINE HCL 50 MG/ML VIAL 25 MG IVPUSH (18:20)
[2021-08-14 18:21] VITALS: BP 147/99; PULSE 76; RESP 16; O2SAT 99
[2021-08-14 18:39] LABS: ~Lactic Acid-LAB USE ONLY 1.4 mmol/L (0.5-2.0)
== END 2021-08-14 19:57 | disposition home or self-care (01) ==
PROVIDERS: Physician Assistant; Emergency Provider Emergency Medicine; PCP Internal Medicine
DX: E10.43 Type 1 diabetes mellitus with diabetic autonomic (poly)neuropathy (principal); K31.84 Gastroparesis; Z20.822 Contact with and (suspected) exposure to COVID-19; R10.9 Unspecified abdominal pain; E10.9 Type 1 diabetes mellitus without complications; F12.90 Cannabis use, unspecified, uncomplicated; Z79.4 Long term (current) use of insulin
CPT/HCPCS: 36415; 71045; 80048; 80076; 82009; 82803; 82947; 83605; 83690; 83735; 85025; 87635; 93005; 96361; 96374; 96375; 99284; J1200; J2405

== ENCOUNTER 2021-09-14 10:56 | Emergency (ER) | payer OTHER, SELFPAY ==
[2021-09-14 11:04] VITALS: BP 134/86; PULSE 108; RESP 18; TEMP 36.8; O2SAT 100; BMI 24.2
[2021-09-14] MEDS: 0.9 % Sodium Chloride 1,000 ML 999 ML IV ×2 (11:33→14:35)
[2021-09-14 11:36] LABS: MANUAL DIFF FLAG NO
[2021-09-14 11:38] LABS: Basophils Percent Auto 0.2 % (0-2); Hematocrit 46.1 % (42.0-52.0); Hemoglobin 15.4 g/dl (14.0-18.0); Imm Gran Abs Auto 0.06 X10*3/uL (0.00-0.03); Imm Gran Pct Auto 0.5 % (0.0-0.4); Lymphocytes Absolute Auto 0.9 X10*3/uL (1.2-4.9); Lymphocytes Percent Auto 7.6 % (20-40); Mean Corpuscular HGB Conc 33.4 g/dl (31.0-36.0); Mean Corpuscular Hemoglobin 28.8 pg (27.0-33.0); Mean Corpuscular Volume 86.3 fL (80.0-98.0); Mean Platelet Volume 10.3 fL (9.4-12.4); Monocytes Percent Auto 7.7 % (2-11); Neutrophils Absolute Auto 10.3 x10*3/uL (2.0-8.3); Platelet Count 272 X10*3/uL (160-400); Red Blood Count 5.34 X10*6/uL (4.60-5.80); Red Cell Distribution Width 12.5 % (11.0-16.0); White Blood Count 12.3 X10*3/uL (4.8-10.8)
[2021-09-14 11:46] LABS: VBG Base Excess 5.1 mmol/L; VBG HCO3 31 mmol/L (22-26); VBG pCO2 50 mmHg; VBG pO2 41 mmHg
[2021-09-14 11:47] LABS: Venous Blood Gas Refer to POC result
[2021-09-14 11:53] LABS: COVID-19 Test Negative (Negative)
[2021-09-14 11:58] LABS: Lactic Acid 3.4 mmol/L (0.5-2.0)
--- NOTE | 2021-09-14 11:58 | ED.NAVMDI ---
HPI - Nausea/Vomiting/Diarrhea General Chief complaint: Nausea/Vomiting/Diarrhea Stated complaint: vomiting Time Seen by Provider: 09/14/21 11:16 Source: patient Mode of arrival: ambulatory History of Present Illness HPI Narrative: 26-year-old male with a PMHx type 1 DM, gastroparesis, recurrent DKA, presenting to the ED complaining of nausea & vomiting since yesterday with inability to tolerate p.o. Reports glucometer reading HI at home. Reports mild SOB chronically/unchanged. Also reports red bumps noted to suprapubic area with testicular discomfort s/p unprotected intercourse with more than 1 partner. Admits to taking 60U Novolin 2.5hrs [employer]. Denies hematuria/dysuria or penile discharge. Denies fever, chills, cough, abdominal pain MD elicited complaint: nausea and vomiting Onset (ago): day(s) Related Data Home Medications Medication Instructions Recorded Confirmed omeprazole 20 mg capsule,delayed 20 mg PO DAILY@0630 08/14/21 08/14/21 release Previous Rx's Medication Instructions Recorded insulin NPH-regular 70-30 U-100 55 unit (0.55 mL) SUBCUT BID #0 ml 07/17/21 insulin 100 unit/mL subcutaneous pen (Novolin 70-30 FlexPen U-100 Insulin) ondansetron 4 mg disintegrating 4 mg PO Q8H PRN 4 Days #20 tab 07/17/21 tablet metoclopramide HCl 10 mg tablet 10 mg PO Q6H PRN #10 tab 08/14/21 (Reglan) Allergies Allergy/AdvReac Type Severity Reaction Status Date / Time passion fruit [PASSION FRUIT] Allergy Unknown UNK Verified 09/14/21 11:08 Review of Systems Review of Systems: Constitutional: No Fever, No Chills, o Fatigue, No Malaise ENT/Mouth: No Ear Pain, No Nasal Congestion, No Sinus Pain, No sore throat, No Rhinorrhea, No Swallowing Difficulty Eyes: No Eye Pain, No Swelling, No Redness Cardiovascular: No Chest Pain, + SOB, No Dyspnea on Exertion, No Orthopnea, No Edema, No Palpitations Respiratory: No Cough, No Sputum, No Dyspnea Gastrointestinal: + Nausea, + Vomiting, No Diarrhea, No Constipation, No Abdominal pain Genitourinary: No Dysuria, No Urinary Frequency, No Hematuria, No Urgency, No Flank Pain Musculoskeletal: No joint pain, No Myalgias, No Joint Swelling Skin: No Skin Lesions, No rash Neuro: No Weakness, No Loss of Consciousness, No Dizziness, No Headache Endocrine: +poydipsia Yes all other systems are reviewed and are negative [facility] Past Medical History Attestation statement: The following information was validated with the patient. Medical History Diabetes Diabetic keto-acidosis Esophageal ulcer Gastroparesis Leukocytosis Social History Social History Household Members: None Housing: Apartment Do you presently have visiting nurse or other home services: No Alcohol intake: current Alcohol intake frequency: holidays/special occasions only Patient Tobacco Use Status: Never used Tobacco Substance Use Type: Marijuana Advance Directives: Yes Advance Directives on File: Yes Advance Directives Date on File: 01/22/21 service: No Current occupational status: employed Physical Exam Vital Signs: Vital Signs: Last Vital Signs Temp 98.3 F 09/14/21 17:52 Pulse 102 H 09/14/21 17:52 Resp 18 09/14/21 17:52 BP 116/60 09/14/21 17:52 Pulse Ox 97 09/14/21 17:52 BMI result Body Mass Index 24.2 Const: General: cooperative, healthy appearing and no acute distress Orientation/consciousness: patient oriented x3 Limitations: no limitations HENMT: Head: Yes normal to inspection Ears: hearing grossly normal bilaterally General nose exam: Normal external nose present Face and sinus: Yes normal facial exam Eyes: General: appearance normal, both eyes and all related structures EOM: EOMs intact bilaterally Neck: Neck: Yes normal visual inspection and Yes no meningeal signs Resp: Effort & Inspection: normal respiratory effort Auscultation: clear to auscultation bilaterally Cardio: Rate: regular rate Heart sounds: S1 normal heart sound present and S2 normal heart sound present GI: Inspection: Yes normal to inspection Palpation (GI): Soft to palpation, nontender, no guarding and not rigid : Male General Exam: Yes normal external exam and No Genital lesions present Penis: normal penis, uncircumcised and No Genital lesions present Scrotum: scrotum normal Testes: Testes normal Skin: Rashes: no rashes Wounds: no wounds Neuro: General: patient oriented x3 and no meningeal signs Gait exam (Neuro): Normal gait present Extrem: General: Yes normal to inspection Course Course Course Narrative: -1218-- mild leukocytosis of 12.3. Likely reactive from nausea/vomiting. Low concern for severe sepsis -sodium 126 > corrected for hyperglycemia 135, glucose 667, no Anion gap. Mild GISSELLE with creatinine 1.48 & Lactic acidosis 3.4 (suspected from dehydration/nausea/vomiting rather than severe sepsis) -1319--acetone negative. DKA less likely Patient was given dose of IM Rocephin and p.o. doxycycline in the ED for prophylactic treatment of GC/chlamydia -repeat POC 407 after IVF, 10U IV insulin given, Repeat POC 187 > then 97 > patient tolerating PO apple juice and crackers -1437--repeat lactic 5.2 > suspected specimen hemolyzed, will obtain additional repeat -1500--repeat BMP normalized. GC/chlamydia negative, patient will not need prescription for Doxycycline -1650--repeat POC 45 > patient tolerating p.o. Jell-O/sandwiches now, will continue to monitor -Repeat POC 109 -1813-- additional repeat POC 102. Patient is safe for discharge at this time. Results discussed with patient including worrisome signs and symptoms and strict return precautions and needed close follow-up with PCP. He verbalized understanding and feel safe for discharge home MDM - Nausea/Vomiting/Diarrhea MDM Narrative Medical decision making narrative: 26-year-old male with a PMHx type 1 DM, gastroparesis, recurrent DKA, presenting to the ED complaining of nausea & vomiting since yesterday with inability to tolerate p.o. On exam mildly tachycardic, NAD/nontoxic, abdomen soft-nontender. exam WNL. Concern for DKA vs gastroparesis/dehydration. Concern for STI. Exam not consistent with testicular torsion/epididymitis or orchitis. Low concern for appendicitis/diverticulitis Plan: Labs, UA, STI testing, IVF, re-evaluate Patient agreeable for STI prophylactic treatment Low concern for severe sepsis. Tachycardia likely from dehydration Medical Records Attestation: I reviewed the patient's medical records. Lab Data Attestation: I reviewed the patient's lab results. Result diagrams: 09/14/21 11:31 09/14/21 14:08 Labs: Lab Results 09/14/21 09/14/21 09/14/21 Range/Units 11:31 11:31 11:31 WBC 12.3 H (4.8-10.8) X10*3/uL RBC 5.34 (4.60-5.80) X10*6/uL Hgb 15.4 (14.0-18.0) g/dl Hct 46.1 (42.0-52.0) % MCV 86.3 (80.0-98.0) fL MCH 28.8 (27.0-33.0) pg MCHC 33.4 (31.0-36.0) g/dl RDW 12.5 (11.0-16.0) % Plt Count 272 (160-400) X10*3/uL MPV 10.3 (9.4-12.4) fL Immature Gran % (Auto) 0.5 H (0.0-0.4) % Neut % (Auto) 84.0 H (45-73) % Lymph % (Auto) 7.6 L (20-40) % [place] % (Auto) 7.7 (2-11) % Eos % (Auto) 0.0 (0-4) % Baso % (Auto) 0.2 (0-2) % Lymph # (Auto) 0.9 L (1.2-4.9) X10*3/uL [place] # (Auto) 1.0 (0.1-1.2) X10*3/uL Eos # (Auto) 0.0 (0.0-0.4) X10*3/uL Baso # (Auto) 0.0 (0.0-0.2) X10*3/uL Abs Immat Gran (auto) 0.06 H (0.00-0.03) X10*3/uL Absolute Neuts (auto) 10.3 H (2.0-8.3) x10*3/uL Absolute Nucleated RBC 0.000 (0.0-0.012) X10*3/uL Nucleated RBC % (auto) 0.0 (0.0-0.2) /100WBC VBG pH (7.32-7.43) VBG pCO2 mmHg VBG pO2 mmHg VBG HCO3 (22-26) mmol/L VBG O2 Saturation % VBG Base Excess mmol/L Sodium (135-145) mmol/L Potassium (3.3-5.1) mmol/L Chloride (96-108) mmol/L Carbon Dioxide (22-29) mmol/L Anion Gap (12-20) BUN (9-16) mg/dL Creatinine (0.5-1.4) mg/dL Estim Creat Clear Calc Estimated GFR POC Glucose (60-115) mg/dL Random Glucose (60-115) mg/dL Lactic Acid 3.4 H* (0.5-2.0) mmol/L Lactic Acid F/U @ 2Hr (0.5-2.0) mmol/L Lactic Acid F/U @ 4Hr (0.5-2.0) mmol/L Calcium (8.4-10.2) mg/dL Magnesium (1.6-2.6) mg/dL Total Bilirubin (0.0-1.0) mg/dL Direct Bilirubin (0.0-0.5) mg/dL AST (5-37) U/L ALT (0-40) U/L Alkaline Phosphatase (39-117) U/L Total Protein (6.5-8.0) g/dL Albumin (3.5-5.0) g/dL Lipase (8-78) U/L Urine Color Urine Appearance Urine pH (5.0-8.0) Ur Specific [place] (1.005-1.025) Urine Protein (NEG-TRACE) MG/DL Urine Glucose (UA) (NEG) MG/DL Urine Ketones (NEG) MG/DL Urine Blood (NEG) Urine Nitrite (NEG) Ur Leukocyte Esterase (NEG) Urine RBC (0) /HPF Urine WBC (0-4) /HPF Ur Squamous Epith Cells /LPF Urine Bacteria /LPF Acetone, Qual (Negative) Chlam trachomat DNA PCR (Not Detect.) COVID-19 (EARLINE) Negative (Negative) COVID-19 Clin Com See Note N.gonorrhoeae DNA (PCR) (Not Detect.) 09/14/21 09/14/21 09/14/21 Range/Units 11:36 11:50 12:02 WBC (4.8-10.8) X10*3/uL RBC (4.60-5.80) X10*6/uL Hgb (14.0-18.0) g/dl Hct (42.0-52.0) % MCV (80.0-98.0) fL MCH (27.0-33.0) pg MCHC (31.0-36.0) g/dl RDW (11.0-16.0) % Plt Count (160-400) X10*3/uL MPV (9.4-12.4) fL Immature Gran % (Auto) (0.0-0.4) % Neut % (Auto) (45-73) % Lymph % (Auto) (20-40) % [place] % (Auto) (2-11) % Eos % (Auto) (0-4) % Baso % (Auto) (0-2) % Lymph # (Auto) (1.2-4.9) X10*3/uL [place] # (Auto) (0.1-1.2) X10*3/uL Eos # (Auto) (0.0-0.4) X10*3/uL Baso # (Auto) (0.0-0.2) X10*3/uL Abs Immat Gran (auto) (0.00-0.03) X10*3/uL Absolute Neuts (auto) (2.0-8.3) x10*3/uL Absolute Nucleated RBC (0.0-0.012) X10*3/uL Nucleated RBC % (auto) (0.0-0.2) /100WBC VBG pH 7.40 (7.32-7.43) VBG pCO2 50 mmHg VBG pO2 41 mmHg VBG HCO3 31 H (22-26) mmol/L VBG O2 Saturation 61.0 % VBG Base Excess 5.1 mmol/L Sodium 126 L (135-145) mmol/L Potassium 4.1 (3.3-5.1) mmol/L Chloride 85 L (96-108) mmol/L Carbon Dioxide 29 (22-29) mmol/L Anion Gap 16 (12-20) BUN 16 (9-16) mg/dL Creatinine 1.48 H (0.5-1.4) mg/dL Estim Creat Clear Calc 68.8 Estimated GFR 58 POC Glucose (60-115) mg/dL Random Glucose 667 H* (60-115) mg/dL Lactic Acid (0.5-2.0) mmol/L Lactic Acid F/U @ 2Hr (0.5-2.0) mmol/L Lactic Acid F/U @ 4Hr (0.5-2.0) mmol/L Calcium 9.9 (8.4-10.2) mg/dL Magnesium 1.6 (1.6-2.6) mg/dL Total Bilirubin 1.0 (0.0-1.0) mg/dL Direct Bilirubin 0.3 (0.0-0.5) mg/dL AST 13 (5-37) U/L ALT 16 (0-40) U/L Alkaline Phosphatase 60 (39-117) U/L Total Protein 7.2 (6.5-8.0) g/dL Albumin 4.3 (3.5-5.0) g/dL Lipase 11 (8-78) U/L Urine Color COLORLESS Urine Appearance CLEAR Urine pH 6.0 (5.0-8.0) Ur Specific [place] <= 1.005 (1.005-1.025) Urine Protein NEG (NEG-TRACE) MG/DL Urine Glucose (UA) >=1000 H (NEG) MG/DL Urine Ketones 15 (NEG) MG/DL Urine Blood NEG (NEG) Urine Nitrite NEG (NEG) Ur Leukocyte Esterase NEG (NEG) Urine RBC 0-2 (0) /HPF Urine WBC 0 (0-4) /HPF Ur Squamous Epith Cells TRACE /LPF Urine Bacteria NONE /LPF Acetone, Qual Negative (Negative) Chlam trachomat DNA PCR (Not Detect.) COVID-19 (EARLINE) (Negative) COVID-19 Clin Com N.gonorrhoeae DNA (PCR) (Not Detect.) 09/14/21 09/14/21 09/14/21 Range/Units 12:02 12:58 13:49 WBC (4.8-10.8) X10*3/uL RBC (4.60-5.80) X10*6/uL Hgb (14.0-18.0) g/dl Hct (42.0-52.0) % MCV (80.0-98.0) fL MCH (27.0-33.0) pg MCHC (31.0-36.0) g/dl RDW (11.0-16.0) % Plt Count (160-400) X10*3/uL MPV (9.4-12.4) fL Immature Gran % (Auto) (0.0-0.4) % Neut % (Auto) (45-73) % Lymph % (Auto) (20-40) % [place] % (Auto) (2-11) % Eos % (Auto) (0-4) % Baso % (Auto) (0-2) % Lymph # (Auto) (1.2-4.9) X10*3/uL [place] # (Auto) (0.1-1.2) X10*3/uL Eos # (Auto) (0.0-0.4) X10*3/uL Baso # (Auto) (0.0-0.2) X10*3/uL Abs Immat Gran (auto) (0.00-0.03) X10*3/uL Absolute Neuts (auto) (2.0-8.3) x10*3/uL Absolute Nucleated RBC (0.0-0.012) X10*3/uL Nucleated RBC % (auto) (0.0-0.2) /100WBC VBG pH (7.32-7.43) VBG pCO2 mmHg VBG pO2 mmHg VBG HCO3 (22-26) mmol/L VBG O2 Saturation % VBG Base Excess mmol/L Sodium (135-145) mmol/L Potassium (3.3-5.1) mmol/L Chloride (96-108) mmol/L Carbon Dioxide (22-29) mmol/L Anion Gap (12-20) BUN (9-16) mg/dL Creatinine (0.5-1.4) mg/dL Estim Creat Clear Calc Estimated GFR POC Glucose 407 H* 187 H (60-115) mg/dL Random Glucose (60-115) mg/dL Lactic Acid (0.5-2.0) mmol/L Lactic Acid F/U @ 2Hr (0.5-2.0) mmol/L Lactic Acid F/U @ 4Hr (0.5-2.0) mmol/L Calcium (8.4-10.2) mg/dL Magnesium (1.6-2.6) mg/dL Total Bilirubin (0.0-1.0) mg/dL Direct Bilirubin (0.0-0.5) mg/dL AST (5-37) U/L ALT (0-40) U/L Alkaline Phosphatase (39-117) U/L Total Protein (6.5-8.0) g/dL Albumin (3.5-5.0) g/dL Lipase (8-78) U/L Urine Color Urine Appearance Urine pH (5.0-8.0) Ur Specific [place] (1.005-1.025) Urine Protein (NEG-TRACE) MG/DL Urine Glucose (UA) (NEG) MG/DL Urine Ketones (NEG) MG/DL Urine Blood (NEG) Urine Nitrite (NEG) Ur Leukocyte Esterase (NEG) Urine RBC (0) /HPF Urine WBC (0-4) /HPF Ur Squamous Epith Cells /LPF Urine Bacteria /LPF Acetone, Qual (Negative) Chlam trachomat DNA PCR NOT DETECTED (Not Detect.) COVID-19 (EARLINE) (Negative) COVID-19 Clin Com N.gonorrhoeae DNA (PCR) NOT DETECTED (Not Detect.) 09/14/21 09/14/21 09/14/21 Range/Units 14:08 14:08 14:23 WBC (4.8-10.8) X10*3/uL RBC (4.60-5.80) X10*6/uL Hgb (14.0-18.0) g/dl Hct (42.0-52.0) % MCV (80.0-98.0) fL MCH (27.0-33.0) pg MCHC (31.0-36.0) g/dl RDW (11.0-16.0) % Plt Count (160-400) X10*3/uL MPV (9.4-12.4) fL Immature Gran % (Auto) (0.0-0.4) % Neut % (Auto) (45-73) % Lymph % (Auto) (20-40) % [place] % (Auto) (2-11) % Eos % (Auto) (0-4) % Baso % (Auto) (0-2) % Lymph # (Auto) (1.2-4.9) X10*3/uL [place] # (Auto) (0.1-1.2) X10*3/uL Eos # (Auto) (0.0-0.4) X10*3/uL Baso # (Auto) (0.0-0.2) X10*3/uL Abs Immat Gran (auto) (0.00-0.03) X10*3/uL Absolute Neuts (auto) (2.0-8.3) x10*3/uL Absolute Nucleated RBC (0.0-0.012) X10*3/uL Nucleated RBC % (auto) (0.0-0.2) /100WBC VBG pH (7.32-7.43) VBG pCO2 mmHg VBG pO2 mmHg VBG HCO3 (22-26) mmol/L VBG O2 Saturation % VBG Base Excess mmol/L Sodium 135 (135-145) mmol/L Potassium 3.4 (3.3-5.1) mmol/L Chloride 96 (96-108) mmol/L Carbon Dioxide 27 (22-29) mmol/L Anion Gap 15 (12-20) BUN 15 (9-16) mg/dL Creatinine 1.08 (0.5-1.4) mg/dL Estim Creat Clear Calc 94.3 Estimated GFR > 60 POC Glucose 97 (60-115) mg/dL Random Glucose 127 H D (60-115) mg/dL Lactic Acid (0.5-2.0) mmol/L Lactic Acid F/U @ 2Hr 5.2 H* (0.5-2.0) mmol/L Lactic Acid F/U @ 4Hr (0.5-2.0) mmol/L Calcium 9.6 (8.4-10.2) mg/dL Magnesium (1.6-2.6) mg/dL Total Bilirubin (0.0-1.0) mg/dL Direct Bilirubin (0.0-0.5) mg/dL AST (5-37) U/L ALT (0-40) U/L Alkaline Phosphatase (39-117) U/L Total Protein (6.5-8.0) g/dL Albumin (3.5-5.0) g/dL Lipase (8-78) U/L Urine Color Urine Appearance Urine pH (5.0-8.0) Ur Specific [place] (1.005-1.025) Urine Protein (NEG-TRACE) MG/DL Urine Glucose (UA) (NEG) MG/DL Urine Ketones (NEG) MG/DL Urine Blood (NEG) Urine Nitrite (NEG) Ur Leukocyte Esterase (NEG) Urine RBC (0) /HPF Urine WBC (0-4) /HPF Ur Squamous Epith Cells /LPF Urine Bacteria /LPF Acetone, Qual (Negative) Chlam trachomat DNA PCR (Not Detect.) COVID-19 (EARLINE) (Negative) COVID-19 Clin Com N.gonorrhoeae DNA (PCR) (Not Detect.) 09/14/21 09/14/21 09/14/21 Range/Units 16:11 16:41 17:21 WBC (4.8-10.8) X10*3/uL RBC (4.60-5.80) X10*6/uL Hgb (14.0-18.0) g/dl Hct (42.0-52.0) % MCV (80.0-98.0) fL MCH (27.0-33.0) pg MCHC (31.0-36.0) g/dl RDW (11.0-16.0) % Plt Count (160-400) X10*3/uL MPV (9.4-12.4) fL Immature Gran % (Auto) (0.0-0.4) % Neut % (Auto) (45-73) % Lymph % (Auto) (20-40) % [place] % (Auto) (2-11) % Eos % (Auto) (0-4) % Baso % (Auto) (0-2) % Lymph # (Auto) (1.2-4.9) X10*3/uL [place] # (Auto) (0.1-1.2) X10*3/uL Eos # (Auto) (0.0-0.4) X10*3/uL Baso # (Auto) (0.0-0.2) X10*3/uL Abs Immat Gran (auto) (0.00-0.03) X10*3/uL Absolute Neuts (auto) (2.0-8.3) x10*3/uL Absolute Nucleated RBC (0.0-0.012) X10*3/uL Nucleated RBC % (auto) (0.0-0.2) /100WBC VBG pH (7.32-7.43) VBG pCO2 mmHg VBG pO2 mmHg VBG HCO3 (22-26) mmol/L VBG O2 Saturation % VBG Base Excess mmol/L Sodium (135-145) mmol/L Potassium (3.3-5.1) mmol/L Chloride (96-108) mmol/L Carbon Dioxide (22-29) mmol/L Anion Gap (12-20) BUN (9-16) mg/dL Creatinine (0.5-1.4) mg/dL Estim Creat Clear Calc Estimated GFR POC Glucose 45 L* 109 (60-115) mg/dL Random Glucose (60-115) mg/dL Lactic Acid (0.5-2.0) mmol/L Lactic Acid F/U @ 2Hr (0.5-2.0) mmol/L Lactic Acid F/U @ 4Hr 1.7 (0.5-2.0) mmol/L Calcium (8.4-10.2) mg/dL Magnesium (1.6-2.6) mg/dL Total Bilirubin (0.0-1.0) mg/dL Direct Bilirubin (0.0-0.5) mg/dL AST (5-37) U/L ALT (0-40) U/L Alkaline Phosphatase (39-117) U/L Total Protein (6.5-8.0) g/dL Albumin (3.5-5.0) g/dL Lipase (8-78) U/L Urine Color Urine Appearance Urine pH (5.0-8.0) Ur Specific [place] (1.005-1.025) Urine Protein (NEG-TRACE) MG/DL Urine Glucose (UA) (NEG) MG/DL Urine Ketones (NEG) MG/DL Urine Blood (NEG) Urine Nitrite (NEG) Ur Leukocyte Esterase (NEG) Urine RBC (0) /HPF Urine WBC (0-4) /HPF Ur Squamous Epith Cells /LPF Urine Bacteria /LPF Acetone, Qual (Negative) Chlam trachomat DNA PCR (Not Detect.) COVID-19 (EARLINE) (Negative) COVID-19 Clin Com N.gonorrhoeae DNA (PCR) (Not Detect.) 09/14/21 Range/Units 17:54 WBC (4.8-10.8) X10*3/uL RBC (4.60-5.80) X10*6/uL Hgb (14.0-18.0) g/dl Hct (42.0-52.0) % MCV (80.0-98.0) fL MCH (27.0-33.0) pg MCHC (31.0-36.0) g/dl RDW (11.0-16.0) % Plt Count (160-400) X10*3/uL MPV (9.4-12.4) fL Immature Gran % (Auto) (0.0-0.4) % Neut % (Auto) (45-73) % Lymph % (Auto) (20-40) % [place] % (Auto) (2-11) % Eos % (Auto) (0-4) % Baso % (Auto) (0-2) % Lymph # (Auto) (1.2-4.9) X10*3/uL [place] # (Auto) (0.1-1.2) X10*3/uL Eos # (Auto) (0.0-0.4) X10*3/uL Baso # (Auto) (0.0-0.2) X10*3/uL Abs Immat Gran (auto) (0.00-0.03) X10*3/uL Absolute Neuts (auto) (2.0-8.3) x10*3/uL Absolute Nucleated RBC (0.0-0.012) X10*3/uL Nucleated RBC % (auto) (0.0-0.2) /100WBC VBG pH (7.32-7.43) VBG pCO2 mmHg VBG pO2 mmHg VBG HCO3 (22-26) mmol/L VBG O2 Saturation % VBG Base Excess mmol/L Sodium (135-145) mmol/L Potassium (3.3-5.1) mmol/L Chloride (96-108) mmol/L Carbon Dioxide (22-29) mmol/L Anion Gap (12-20) BUN (9-16) mg/dL Creatinine (0.5-1.4) mg/dL Estim Creat Clear Calc Estimated GFR POC Glucose 102 (60-115) mg/dL Random Glucose (60-115) mg/dL Lactic Acid (0.5-2.0) mmol/L Lactic Acid F/U @ 2Hr (0.5-2.0) mmol/L Lactic Acid F/U @ 4Hr (0.5-2.0) mmol/L Calcium (8.4-10.2) mg/dL Magnesium (1.6-2.6) mg/dL Total Bilirubin (0.0-1.0) mg/dL Direct Bilirubin (0.0-0.5) mg/dL AST (5-37) U/L ALT (0-40) U/L Alkaline Phosphatase (39-117) U/L Total Protein (6.5-8.0) g/dL Albumin (3.5-5.0) g/dL Lipase (8-78) U/L Urine Color Urine Appearance Urine pH (5.0-8.0) Ur Specific [place] (1.005-1.025) Urine Protein (NEG-TRACE) MG/DL Urine Glucose (UA) (NEG) MG/DL Urine Ketones (NEG) MG/DL Urine Blood (NEG) Urine Nitrite (NEG) Ur Leukocyte Esterase (NEG) Urine RBC (0) /HPF Urine WBC (0-4) /HPF Ur Squamous Epith Cells /LPF Urine Bacteria /LPF Acetone, Qual (Negative) Chlam trachomat DNA PCR (Not Detect.) COVID-19 (EARLINE) (Negative) COVID-19 Clin Com N.gonorrhoeae DNA (PCR) (Not Detect.) Discharge Plan Discharge Clinical Impression: Acute hyperglycemia Patient Disposition: Home, Self-Care Instructions: Diabetic Hyperglycemia (ED) Additional Instructions: Your glucose is very elevated today in the emergency department. Subsequently became very low after additional insulin was given to you in combination with your home insulin. Your blood work was otherwise reassuring after fluids and your glucose being corrected. You tested negative for gonorrhea and chlamydia If your symptoms persist or worsen, you develop lightheadedness/dizziness, increased thirst/urination please return to the emergency department Please monitor your sugar very closely. Prescriptions: No Action Novolin 70-30 FlexPen U-100 100 unit/mL (70-30) Insulin Pen 55 unit SUBCUT BID Qty: 0 0RF ondansetron 4 mg tablet,disintegrating 4 mg PO Q8H PRN (Reason: nausea and vomiting) 4 Days Qty: 20 0RF omeprazole 20 mg Capsule,Delayed Release(Dr/Ec) 20 mg PO DAILY@0630 0RF metoclopramide HCl [Reglan] 10 mg tablet 10 mg PO Q6H PRN (Reason: nausea and vomiting) Qty: 10 0RF Referrals: Papi Olivo MD [Primary Care Provider] - 2 days
[2021-09-14 12:12] LABS: Appearance Urine CLEAR; Glucose Urine UA >=1000 MG/DL (NEG); Leukocyte Esterase Urine NEG (NEG); Nitrite Urine NEG (NEG); Specific Gravity - Urine <= 1.005 (1.005-1.025); Urine Blood NEG (NEG); Urine Ketones 15 MG/DL (NEG); Urine Protein NEG (NEG-TRACE)
[2021-09-14 12:15] LABS: Color Urine COLORLESS
[2021-09-14 12:16] LABS: Alanine Aminotransferase 16 U/L (0-40); Albumin Level 4.3 g/dL (3.5-5.0); Alkaline Phosphatase 60 U/L (39-117); Anion Gap 16 (12-20); Aspartate Amino Transferase 13 U/L (5-37); Bilirubin Direct 0.3 mg/dL (0.0-0.5); Blood Urea Nitrogen 16 mg/dL (9-16); Calcium 9.9 mg/dL (8.4-10.2); Carbon Dioxide 29 mmol/L (22-29); Chloride 85 mmol/L (96-108); Creatinine Clr Calc Pharmacy 68.8; Estimated Glomerular Filt Rate 58; Glucose Random 667 mg/dL (60-115); Lipase 11 U/L (8-78); Magnesium 1.6 mg/dL (1.6-2.6); Potassium 4.1 mmol/L (3.3-5.1); Sodium 126 mmol/L (135-145); Total Protein 7.2 g/dL (6.5-8.0)
[2021-09-14] MEDS: Lactated Ringers 1,000 ML 999 ML IV (12:18)
[2021-09-14 12:22] LABS: RBC Urine 0-2 /HPF (0); Squamous Epithelial Cell Urine TRACE /LPF; WBC Urine 0 /HPF (0-4)
[2021-09-14] MEDS: Insulin Regular, Human 100 UNIT/ML 3 ML VIAL 10 UNIT IVPUSH (12:55)
[2021-09-14 13:04] LABS: Glucose, Whole Blood 407 mg/dL (60-115)
[2021-09-14 13:06] LABS: Acetone, serum QL Negative (Negative)
[2021-09-14 13:37] LABS: Reflex Lactate? Lactic Acid Added
[2021-09-14 13:53] LABS: Glucose, Whole Blood 187 mg/dL (60-115)
[2021-09-14 14:24] LABS: CT PCR NOT DETECTED (Not Detect.); NG PCR NOT DETECTED (Not Detect.)
[2021-09-14 14:27] LABS: Glucose, Whole Blood 97 mg/dL (60-115)
[2021-09-14] MEDS: cefTRIAXone sodium 500 MG, Lidocaine HCl 1 % MPF 1 ML IM (14:29)
[2021-09-14 14:30] LABS: ~Lactic Acid-LAB USE ONLY 5.2 mmol/L (0.5-2.0)
[2021-09-14 14:38] VITALS: BP 114/69; PULSE 113; RESP 19; TEMP 36.6; O2SAT 99
[2021-09-14 14:46] LABS: Anion Gap 15 (12-20); Blood Urea Nitrogen 15 mg/dL (9-16); Calcium 9.6 mg/dL (8.4-10.2); Carbon Dioxide 27 mmol/L (22-29); Chloride 96 mmol/L (96-108); Creatinine Clr Calc Pharmacy 94.3; Estimated Glomerular Filt Rate > 60; Potassium 3.4 mmol/L (3.3-5.1); Sodium 135 mmol/L (135-145)
[2021-09-14 14:53] LABS: Glucose Random 127 mg/dL (60-115)
[2021-09-14 16:11] LABS: Reflex Lactate? 2 Y
[2021-09-14 16:46] LABS: Glucose, Whole Blood 45 mg/dL (60-115)
[2021-09-14 17:11] LABS: ~Lactic Acid-LAB USE ONLY 1.7 mmol/L (0.5-2.0)
[2021-09-14 17:25] LABS: Glucose, Whole Blood 109 mg/dL (60-115)
[2021-09-14 17:52] VITALS: BP 116/60; PULSE 102; RESP 18; TEMP 36.8; O2SAT 97
[2021-09-14 18:00] LABS: Glucose, Whole Blood 102 mg/dL (60-115)
== END 2021-09-14 18:22 | disposition home or self-care (01) ==
PROVIDERS: Physician Assistant; Emergency Provider Emergency Medicine; PCP Internal Medicine
DX: E10.65 Type 1 diabetes mellitus with hyperglycemia (principal); R11.2 Nausea with vomiting, unspecified; Z20.2 Contact with and (suspected) exposure to infections with a predominantly sexual mode of transmission; Z20.822 Contact with and (suspected) exposure to COVID-19; F12.90 Cannabis use, unspecified, uncomplicated; Z79.4 Long term (current) use of insulin
CPT/HCPCS: 36415; 80048; 80076; 81001; 82009; 82803; 82947; 83605; 83690; 83735; 85025; 87491; 87591; 87635; 96361; 96374; 96375; 99284; J0696

== ENCOUNTER 2021-09-17 14:37 | Emergency (ER) | payer OTHER, SELFPAY | END 2021-09-17 15:50 | disposition left against medical advice (07) | PROVIDERS: Emergency Provider Emergency Medicine; PCP Internal Medicine | DX: E86.0 Dehydration (principal) ==

== ENCOUNTER 2021-09-18 06:58 | Day surgery (SDC) | payer OTHER, SELFPAY ==
--- NOTE | 2021-09-17 13:18 | HO.ANESPROP2 ---
Documented by User: Smita Gaines NP 09/17/21 13:19 HPI - Anesthesia Eval Consult details Narrative: 26yo M for Upper Endoscopy [facility] Past Medical History Medical History Diabetes Diabetic keto-acidosis Esophageal ulcer Gastroparesis Leukocytosis Surgical History History of Problems with Anesthesia: No Social History Social History Household Members: None Housing: Apartment Do you presently have visiting nurse or other home services: No Alcohol intake: current Alcohol intake frequency: holidays/special occasions only Patient Tobacco Use Status: Never used Tobacco Substance Use Type: Marijuana Substance Use Frequency: Occasionally Advance Directives: Yes Advance Directives on File: Yes Advance Directives Date on File: 01/22/21 service: No Current occupational status: employed Meds Allergies Allergy/AdvReac Type Severity Reaction Status Date / Time passion fruit [PASSION FRUIT] Allergy Unknown UNK Verified 09/14/21 11:08 Home Medications Medication Instructions Recorded Confirmed Last Taken Type omeprazole 20 mg capsule,delayed 20 mg PO DAILY@0630 08/14/21 08/14/21 08/14/21 History release Exam Exam Date and Time: September 17, 2021 1318 Pertinent Lab Results Pertinent Lab Results: Laboratory Tests 09/14/21 09/14/21 11:31 14:08 WBC 12.3 H Hgb 15.4 Hct 46.1 Plt Count 272 Sodium 135 Potassium 3.4 Chloride 96 Carbon Dioxide 27 BUN 15 Creatinine 1.08 Assessment and Plan Assessment Anesthesia Assessment: Chart Reviewed Final Anesthetic Review History of Problems with Anesthesia: No Documented by User: Jude Milligan 09/18/21 09:26 [facility] Past Medical History Medical History Diabetes Diabetic keto-acidosis Esophageal ulcer Gastroparesis Leukocytosis Family History Family history of problems with anesthesia: No Social History Social History Household Members: None Housing: Apartment Do you presently have visiting nurse or other home services: No Alcohol intake: current Alcohol intake frequency: holidays/special occasions only Patient Tobacco Use Status: Never used Tobacco Substance Use Type: Marijuana Substance Use Frequency: Occasionally Advance Directives: Yes Advance Directives on File: Yes Advance Directives Date on File: 01/22/21 service: No Current occupational status: employed Meds Allergies Allergy/AdvReac Type Severity Reaction Status Date / Time passion fruit [PASSION FRUIT] Allergy Unknown UNK Verified 09/14/21 11:08 Home Medications Medication Instructions Recorded Confirmed Last Taken Type omeprazole 20 mg capsule,delayed 20 mg PO DAILY@0630 08/14/21 08/14/21 08/14/21 History release Exam Airway Mallampati Class: III TM Dist: >3cm Neck ROM: Full Loose/Missing/Broken Teeth: Yes (Upper right chipped , missing ) Heart: rrr Lungs: bl breath sounds Assessment and Plan Assessment Anesthesia Assessment: Anesthesia Plan Discussed Final Anesthetic Review Family History of Problems with Anesthesia: No NPO: Yes ASA Class: II Final Preanesthetic Review: Meds/Allgs Chart Reviewed, Consent Obtained/Reviewed and Anes Risks/Benef Reviewed Patient Risk: Intermediate Procedure Risk: Intermediate Anesthetic Plan Anesthetic Plan: MAC: Disposition: Standard PACU
[2021-09-18 07:11] VITALS: BP 146/98; PULSE 76; RESP 15; TEMP 36.6; O2SAT 100; BMI 24.2
[2021-09-18 07:21] LABS: Glucose, Whole Blood 142 mg/dL (60-115)
--- NOTE | 2021-09-18 08:00 | MHC.SHP ---
Pre-Procedural Eval Section A Date of Service: 09/18/21 Section B Chief Complaint: esophagitis Details of Present Illness: Ef/u erosive esophagitis and duodenal ulcer Relevant Family History (Specify if Yes): No Relevant Social History: None (see H&P) Present Medications: see Short Stay Collaborative assessment Medical History: No relevant PMH History of Previous Operations: No relevant previous surgery Allergies: Allergies Allergy/AdvReac Type Severity Reaction Status Date / Time passion fruit [PASSION FRUIT] Allergy Unknown UNK Verified 09/14/21 11:08 Review of Systems Sugical H&P ROS: Negative: Constitution, Cardiovascular, Respiratory, Neurological, Psychiatric, Hem-Onc, Allergic/Immunologic, Gastrointestinal, Genitourinary, Musculoskeletal, Integumentary, Endocrine and Eyes/Ears/Nose/Throat Exam Surgical H&P Exam: Normal: HEENT, Normal: Heart, Normal: Lungs, Normal: Extremities, Normal: Abdomen, Normal: Skin and Normal: Neurological Plan I have reviewed the history and physical and performed a pertinent physical examination on my patient. No changes have occurred unless specified.
--- NOTE | 2021-09-18 08:19 | P.BOP_ITS ---
Brief Operative Note Date of Service: 09/18/21 Pre-op diagnosis: erosive esophagitis Post-op diagnosis: same (esophagitis,gastritis) Procedure: egd Surgeon: Hammad Scanlon Anesthesia: MAC Was an Human Relations Teacher used for this Procedure?: No Estimated blood loss (mL): 5 Pathology: other (seel list) Condition: stable Disposition: PACU
[2021-09-18 08:20] VITALS: BP 107/63; PULSE 77; RESP 16; TEMP 36.6; O2SAT 99
[2021-09-18 08:35] VITALS: BP 114/76; PULSE 62; RESP 16; TEMP 36.6; O2SAT 99
--- NOTE | 2021-09-18 09:32 | OP_ITS ---
SURGEON: Hammad Scanlon MD INDICATIONS: Erosive esophagitis and peptic ulcer disease. PREOPERATIVE DIAGNOSIS: POSTOPERATIVE DIAGNOSIS: PROCEDURE PERFORMED: Upper endoscopy with biopsy. ESTIMATED BLOOD LOSS: COMPLICATIONS: ANESTHESIA: Monitored anesthesia care. ASSISTANTS: SPECIMENS: DESCRIPTION OF PROCEDURE: History and physical were performed. The risks and benefits of the procedure were explained to the patient. Informed consent was obtained. The patient was placed in the left lateral decubitus position. The Olympus video gastroscope was introduced into the esophagus, stomach, and duodenum. Examination was performed and the scope was removed. He tolerated the procedure well and was returned to the recovery area in stable condition. FINDINGS: Esophagus: The esophagus showed distal esophagitis with some focal areas of ulceration measuring approximately 5-6 mm just above the EG junction. This was improved from his previous endoscopy in June. Biopsies were obtained from the EG junction. Stomach: The stomach showed no evidence of masses, ulcers, or polyps. There was gastritis mainly in the fundus below the EG junction with erythema, but no ulceration. Biopsies were obtained from the fundus and antrum. Duodenum: The bulb and second portion were normal. The previously noted gastric ulcer was healed. IMPRESSION: 1. Esophagitis. 2. Gastritis. RECOMMENDATION: 1. Follow up the biopsy results. 2. Overall, this endoscopy shows significant improvement from his previous endoscopy. He may benefit from an increased dose of omeprazole pending the results of his biopsies. MD DAWIT Alexander/DEBORAH / [id number]
== END 2021-09-18 09:20 | disposition home or self-care (01) ==
PROVIDERS: PCP Internal Medicine; Visit Provider Internal Medicine Gastroenterology
PROC: 0DJ08ZZ Inspection of Upper Intestinal Tract, Via Natural or Artificial Opening Endoscopic (ICD-10-PCS; CPT 43235; principal; 2021-09-18 08:10)
DX: K20.80 Other esophagitis without bleeding (principal); K29.50 Unspecified chronic gastritis without bleeding; K22.10 Ulcer of esophagus without bleeding; E11.10 Type 2 diabetes mellitus with ketoacidosis without coma; Z79.4 Long term (current) use of insulin; Z79.899 Other long term (current) drug therapy; Z79.1 Long term (current) use of non-steroidal anti-inflammatories (NSAID); F12.90 Cannabis use, unspecified, uncomplicated; F10.10 Alcohol abuse, uncomplicated
CPT/HCPCS: 43239; 82947; 88305; 88312; 88342

== ENCOUNTER 2021-10-14 10:38 | Emergency (ER) | payer OTHER, SELFPAY ==
[2021-10-14 10:41] VITALS: BP 139/88; PULSE 99; RESP 19; TEMP 36.6; O2SAT 99; BMI 24.2
--- NOTE | 2021-10-14 10:53 | ED_ITS ---
HPI - General Adult General Chief complaint: General Medical Stated complaint: dehydration Time Seen by Provider: 10/14/21 10:48 Source: patient Mode of arrival: ambulatory Limitations: no limitations History of Present Illness HPI narrative: Patient comes to the emergency room complaining of feeling dehydrated. Patient states he has been vomiting for 3 days. Patient states that before he started vomiting, he was binge drinking. Patient denies diarrhea, no significant abdominal pain other than epigastric burning. Related Data Home Medications Medication Instructions Recorded Confirmed omeprazole 20 mg capsule,delayed 20 mg PO DAILY@0630 08/14/21 08/14/21 release Previous Rx's Medication Instructions Recorded insulin NPH-regular 70-30 U-100 55 unit (0.55 mL) SUBCUT BID #0 ml 07/17/21 insulin 100 unit/mL subcutaneous pen (Novolin 70-30 FlexPen U-100 Insulin) ondansetron 4 mg disintegrating 4 mg PO Q8H PRN 4 Days #20 tab 07/17/21 tablet ondansetron HCl 4 mg tablet 4 mg PO Q6H PRN #10 tab 10/14/21 Allergies Allergy/AdvReac Type Severity Reaction Status Date / Time passion fruit [PASSION FRUIT] Allergy Unknown UNK Verified 09/14/21 11:08 Review of Systems Review of Systems: Constitutional : No Weight loss, No Fever, No Chills, No Night Sweats, No Fatigue, No Malaise ENT/Mouth : No Hearing loss, No Ear Pain, No Nasal Congestion, No Sinus Pain, No Hoarseness, No sore throat, No Rhinorrhea, No Swallowing Difficulty Eyes: No Eye Pain, No Swelling, No Redness, No Foreign Body, No Discharge, No Vision Changes Cardiovascular : No Chest Pain, No SOB, No Dyspnea on Exertion, No Orthopnea, No Edema, No Palpitations Respiratory : No Cough, No Sputum, No Wheezing, No Smoke Exposure, No Dyspnea Gastrointestinal : Complaining of nausea and vomiting for 3 days, No Diarrhea, No Constipation, No abdominal Pain, complaining of epigastric burning. No Hematochezia, No Melena Genitourinary : no irregular bleeding, No Dysuria, No Urinary Frequency, No Hematuria, No Urinary Incontinence, No Urgency, No Flank Pain, No Urinary Flow Changes, No Hesitancy Musculoskeletal : No joint pain, No Myalgias, No Joint Swelling Skin : No Skin Lesions, No rash Neuro : No Weakness, No Numbness, No Paresthesias, No Loss of Consciousness, No Dizziness, No Headache Psych : No Anxiety/Panic, No Depression, No SI/HI/AH/VH, No Social Issues, Heme/Lymph: No Bruising, No Bleeding,No Lymphadenopathy Endocrine : No Polyuria, No Polydipsia, No Temperature Intolerance PMFSH Past Medical History Medical History Diabetes Diabetic keto-acidosis Esophageal ulcer Gastroparesis Leukocytosis Social History Social History Household Members: None Housing: Apartment Do you presently have visiting nurse or other home services: No Alcohol intake: current Alcohol intake frequency: holidays/special occasions only Patient Tobacco Use Status: Never used Tobacco Substance Use Type: Marijuana Advance Directives: Yes Advance Directives on File: Yes Advance Directives Date on File: 01/22/21 service: No Current occupational status: employed Physical Exam ED Vital Signs: Vital Signs - 24 hr 10/14/21 10:41 10/14/21 13:45 10/14/21 14:42 Temperature 98 F 99.0 F 98.0 F Pulse Rate 99 95 95 Respiratory Rate 19 12 14 Blood Pressure 139/88 135/97 H 128/70 Pulse Oximetry 99 99 98 BMI result Body Mass Index 24.2 Const Other: Appearance: Alert. Oriented X3. No acute distress. Well-appearing Eyes: Pupils equal, round and reactive to light. ENT: Pharynx normal. Neck: Normal inspection. Neck supple. No lymph nodes noted. No crepitus CVS: Normal heart rate and rhythm. Pulses normal. Normal S1 and S2 Respiratory: No respiratory distress. Breath sounds normal. No Wheezing. No rales Abdomen: Soft and nontender. No rigidity. No distention. Skin: Skin warm and dry. Normal skin color. Normal skin turgor. Extremities: No lower extremity edema. No Lacerations. No Rash Neuro: Oriented X 3. No motor deficit. No sensory deficit. Moving all extermities. No slurred speech. Course Course Course Narrative: Patient is being giving IV fluids, famotidine and Zofran IV. Labs pending, patient has history of DKA. Patient has not been checking his glucose in the last few days Patient's last were repeated, anion gap is closed now, blood sugar is 171 Medical Decision Making Lab Data Result diagrams: 10/14/21 11:02 10/14/21 14:13 Labs: Lab Results 10/14/21 10/14/21 10/14/21 Range/Units 11:02 11:02 12:20 WBC 10.3 (4.8-10.8) X10*3/uL RBC 5.61 (4.60-5.80) X10*6/uL Hgb 16.2 (14.0-18.0) g/dl Hct 48.6 (42.0-52.0) % MCV 86.6 (80.0-98.0) fL MCH 28.9 (27.0-33.0) pg MCHC 33.3 (31.0-36.0) g/dl RDW 12.1 (11.0-16.0) % Plt Count 287 (160-400) X10*3/uL MPV 10.0 (9.4-12.4) fL Immature Gran % (Auto) 0.4 (0.0-0.4) % Neut % (Auto) 74.8 H (45-73) % Lymph % (Auto) 14.5 L (20-40) % [place] % (Auto) 10.0 (2-11) % Eos % (Auto) 0.1 (0-4) % Baso % (Auto) 0.2 (0-2) % Lymph # (Auto) 1.5 (1.2-4.9) X10*3/uL [place] # (Auto) 1.0 (0.1-1.2) X10*3/uL Eos # (Auto) 0.0 (0.0-0.4) X10*3/uL Baso # (Auto) 0.0 (0.0-0.2) X10*3/uL Abs Immat Gran (auto) 0.04 H (0.00-0.03) X10*3/uL Absolute Neuts (auto) 7.7 (2.0-8.3) x10*3/uL Absolute Nucleated RBC 0.000 (0.0-0.012) X10*3/uL Nucleated RBC % (auto) 0.0 (0.0-0.2) /100WBC Sodium 130 L (135-145) mmol/L Potassium 4.1 D (3.3-5.1) mmol/L Chloride 89 L (96-108) mmol/L Carbon Dioxide 23 (22-29) mmol/L Anion Gap 22 H (12-20) BUN 15 (9-16) mg/dL Creatinine 1.33 (0.5-1.4) mg/dL Estim Creat Clear Calc 76.6 Estimated GFR > 60 POC Glucose 296 H (60-115) mg/dL Random Glucose 335 H D (60-115) mg/dL Calcium 9.7 (8.4-10.2) mg/dL Total Bilirubin 1.2 H (0.0-1.0) mg/dL Direct Bilirubin 0.4 (0.0-0.5) mg/dL AST 12 (5-37) U/L ALT 12 (0-40) U/L Alkaline Phosphatase 75 D (39-117) U/L Total Protein 7.7 (6.5-8.0) g/dL Albumin 4.6 (3.5-5.0) g/dL Lipase 8 (8-78) U/L Acetone, Qual Small H (Negative) 10/14/21 10/14/21 Range/Units 13:38 14:13 WBC (4.8-10.8) X10*3/uL RBC (4.60-5.80) X10*6/uL Hgb (14.0-18.0) g/dl Hct (42.0-52.0) % MCV (80.0-98.0) fL MCH (27.0-33.0) pg MCHC (31.0-36.0) g/dl RDW (11.0-16.0) % Plt Count (160-400) X10*3/uL MPV (9.4-12.4) fL Immature Gran % (Auto) (0.0-0.4) % Neut % (Auto) (45-73) % Lymph % (Auto) (20-40) % [place] % (Auto) (2-11) % Eos % (Auto) (0-4) % Baso % (Auto) (0-2) % Lymph # (Auto) (1.2-4.9) X10*3/uL [place] # (Auto) (0.1-1.2) X10*3/uL Eos # (Auto) (0.0-0.4) X10*3/uL Baso # (Auto) (0.0-0.2) X10*3/uL Abs Immat Gran (auto) (0.00-0.03) X10*3/uL Absolute Neuts (auto) (2.0-8.3) x10*3/uL Absolute Nucleated RBC (0.0-0.012) X10*3/uL Nucleated RBC % (auto) (0.0-0.2) /100WBC Sodium 134 L (135-145) mmol/L Potassium 4.0 (3.3-5.1) mmol/L Chloride 100 (96-108) mmol/L Carbon Dioxide 26 (22-29) mmol/L Anion Gap 12 (12-20) BUN 13 (9-16) mg/dL Creatinine 0.91 (0.5-1.4) mg/dL Estim Creat Clear Calc 111.9 Estimated GFR > 60 POC Glucose 179 H (60-115) mg/dL Random Glucose 171 H D (60-115) mg/dL Calcium (8.4-10.2) mg/dL Total Bilirubin (0.0-1.0) mg/dL Direct Bilirubin (0.0-0.5) mg/dL AST (5-37) U/L ALT (0-40) U/L Alkaline Phosphatase (39-117) U/L Total Protein (6.5-8.0) g/dL Albumin (3.5-5.0) g/dL Lipase (8-78) U/L Acetone, Qual (Negative) Discharge Plan Discharge Clinical Impression: Vomiting Patient Disposition: Home, Self-Care Instructions: Acute Nausea and Vomiting (ED) Additional Instructions: Please follow-up with your primary care physician tomorrow. If you have any worsening or new symptoms, please return to the emergency room or call 911 Prescriptions: New ondansetron HCl 4 mg tablet 4 mg PO Q6H PRN (Reason: nausea and vomiting) Qty: 10 0RF No Action Novolin 70-30 FlexPen U-100 100 unit/mL (70-30) Insulin Pen 55 unit SUBCUT BID Qty: 0 0RF ondansetron 4 mg tablet,disintegrating 4 mg PO Q8H PRN (Reason: nausea and vomiting) 4 Days Qty: 20 0RF omeprazole 20 mg Capsule,Delayed Release(Dr/Ec) 20 mg PO DAILY@0630 0RF
[2021-10-14] MEDS: Famotidine/PF 20 MG/2 ML VIAL IVPUSH (11:03)
[2021-10-14] MEDS: ondansetron HCL 4 MG/2 ML VIAL IVPUSH (11:03)
[2021-10-14 11:09] LABS: MANUAL DIFF FLAG NO
[2021-10-14] MEDS: 0.9 % Sodium Chloride 1,000 ML 999 ML IVCONT ×2 (11:09→12:28)
[2021-10-14 11:12] LABS: Basophils Percent Auto 0.2 % (0-2); Eosinophils Percent Auto 0.1 % (0-4); Hematocrit 48.6 % (42.0-52.0); Hemoglobin 16.2 g/dl (14.0-18.0); Imm Gran Abs Auto 0.04 X10*3/uL (0.00-0.03); Imm Gran Pct Auto 0.4 % (0.0-0.4); Lymphocytes Absolute Auto 1.5 X10*3/uL (1.2-4.9); Lymphocytes Percent Auto 14.5 % (20-40); Mean Corpuscular HGB Conc 33.3 g/dl (31.0-36.0); Mean Corpuscular Hemoglobin 28.9 pg (27.0-33.0); Mean Corpuscular Volume 86.6 fL (80.0-98.0); Neutrophils Absolute Auto 7.7 x10*3/uL (2.0-8.3); Neutrophils Percent Auto 74.8 % (45-73); Platelet Count 287 X10*3/uL (160-400); Red Blood Count 5.61 X10*6/uL (4.60-5.80); Red Cell Distribution Width 12.1 % (11.0-16.0); White Blood Count 10.3 X10*3/uL (4.8-10.8)
[2021-10-14 11:28] LABS: Alanine Aminotransferase 12 U/L (0-40); Albumin Level 4.6 g/dL (3.5-5.0); Alkaline Phosphatase 75 U/L (39-117); Anion Gap 22 (12-20); Aspartate Amino Transferase 12 U/L (5-37); Bilirubin Direct 0.4 mg/dL (0.0-0.5); Bilirubin Total 1.2 mg/dL (0.0-1.0); Blood Urea Nitrogen 15 mg/dL (9-16); Calcium 9.7 mg/dL (8.4-10.2); Carbon Dioxide 23 mmol/L (22-29); Chloride 89 mmol/L (96-108); Creatinine Clr Calc Pharmacy 76.6; Estimated Glomerular Filt Rate > 60; Glucose Random 335 mg/dL (60-115); Lipase 8 U/L (8-78); Potassium 4.1 mmol/L (3.3-5.1); Sodium 130 mmol/L (135-145); Total Protein 7.7 g/dL (6.5-8.0)
[2021-10-14 12:25] LABS: Glucose, Whole Blood 296 mg/dL (60-115)
[2021-10-14] MEDS: Insulin Regular, Human 100 UNIT/ML 3 ML VIAL 10 UNIT IVPUSH (12:27)
[2021-10-14 13:17] LABS: Acetone, serum QL Small (Negative)
[2021-10-14 13:42] LABS: Glucose, Whole Blood 179 mg/dL (60-115)
[2021-10-14 13:45] VITALS: BP 135/97; PULSE 95; RESP 12; TEMP 37.2; O2SAT 99
[2021-10-14 14:40] LABS: Anion Gap 12 (12-20); Blood Urea Nitrogen 13 mg/dL (9-16); Carbon Dioxide 26 mmol/L (22-29); Chloride 100 mmol/L (96-108); Creatinine Clr Calc Pharmacy 111.9; Estimated Glomerular Filt Rate > 60; Glucose Random 171 mg/dL (60-115); Sodium 134 mmol/L (135-145)
[2021-10-14 14:42] VITALS: BP 128/70; PULSE 95; RESP 14; TEMP 36.7; O2SAT 98
[2021-10-14 14:50] LABS: Calcium 8.4 mg/dL (8.4-10.2)
== END 2021-10-14 15:42 | disposition home or self-care (01) ==
PROVIDERS: Emergency Provider Emergency Medicine; PCP Internal Medicine
DX: R11.10 Vomiting, unspecified (principal); E86.0 Dehydration; Z79.899 Other long term (current) drug therapy
CPT/HCPCS: 36415; 80048; 80076; 82009; 82947; 83690; 85025; 96361; 96374; 96375; 99284; J2405

== ENCOUNTER 2021-10-21 20:49 | Emergency (ER) | payer OTHER, SELFPAY ==
[2021-10-21 21:10] VITALS: BP 149/107; PULSE 88; RESP 20; TEMP 36.7; O2SAT 100; BMI 24.3
[2021-10-21 21:36] LABS: Glucose, Whole Blood 269 mg/dL (60-115)
[2021-10-21 21:50] LABS: MANUAL DIFF FLAG NO
[2021-10-21 21:52] LABS: Basophils Percent Auto 0.3 % (0-2); Hemoglobin 16.6 g/dl (14.0-18.0); Imm Gran Abs Auto 0.05 X10*3/uL (0.00-0.03); Imm Gran Pct Auto 0.3 % (0.0-0.4); Lymphocytes Absolute Auto 1.1 X10*3/uL (1.2-4.9); Lymphocytes Percent Auto 6.8 % (20-40); Mean Corpuscular HGB Conc 33.2 g/dl (31.0-36.0); Mean Corpuscular Hemoglobin 28.8 pg (27.0-33.0); Mean Corpuscular Volume 86.7 fL (80.0-98.0); Mean Platelet Volume 10.1 fL (9.4-12.4); Monocytes Absolute Auto 0.7 X10*3/uL (0.1-1.2); Monocytes Percent Auto 4.6 % (2-11); Neutrophils Absolute Auto 13.6 x10*3/uL (2.0-8.3); Platelet Count 317 X10*3/uL (160-400); Red Blood Count 5.77 X10*6/uL (4.60-5.80); Red Cell Distribution Width 12.7 % (11.0-16.0); White Blood Count 15.5 X10*3/uL (4.8-10.8)
[2021-10-21 22:17] LABS: Alanine Aminotransferase 13 U/L (0-40); Albumin Level 4.6 g/dL (3.5-5.0); Alkaline Phosphatase 66 U/L (39-117); Anion Gap 20 (12-20); Aspartate Amino Transferase 15 U/L (5-37); Bilirubin Total 0.4 mg/dL (0.0-1.0); Blood Urea Nitrogen 14 mg/dL (9-16); Carbon Dioxide 24 mmol/L (22-29); Chloride 92 mmol/L (96-108); Creatinine Clr Calc Pharmacy 82.8; Estimated Glomerular Filt Rate > 60; Glucose Random 296 mg/dL (60-115); Potassium 5.4 mmol/L (3.3-5.1); Sodium 131 mmol/L (135-145); Total Protein 7.6 g/dL (6.5-8.0)
[2021-10-21 23:42] LABS: Lipase 16 U/L (8-78)
--- NOTE | 2021-10-21 23:54 | ED.NAVMDI ---
HPI - Nausea/Vomiting/Diarrhea General Chief complaint: Nausea/Vomiting/Diarrhea Stated complaint: vomiting diabetic Time Seen by Provider: 10/21/21 21:03 Source: patient Mode of arrival: ambulatory Limitations: no limitations History of Present Illness HPI Narrative: This is a 26-year-old male PMHx type 1 DM, gastroparesis, recurrent DKA, presenting to the ED complaining of chills, diffuse abdominal discomfort, nausea, and vomiting since this afternoon. Reports symptoms similar to prior DKA.? Admits glucose has been higher than usual at home, with inability to tolerate p.o. since this morning. Tells me he feels ?dehydrated MD elicited complaint: nausea, vomiting and abdominal pain Onset (ago): day(s) (1) Associated nausea: Yes Associated abdominal pain: Yes Location of pain: diffuse Radiation: diffuse Pain consistency: constant Severity: moderate Exacerbating factors: none Relieving factors: none Associated symptoms: nausea/vomiting Related Data Home Medications Medication Instructions Recorded Confirmed omeprazole 20 mg capsule,delayed 20 mg PO DAILY@0630 08/14/21 08/14/21 release Previous Rx's Medication Instructions Recorded insulin NPH-regular 70-30 U-100 55 unit (0.55 mL) SUBCUT BID #0 ml 07/17/21 insulin 100 unit/mL subcutaneous pen (Novolin 70-30 FlexPen U-100 Insulin) ondansetron 4 mg disintegrating 4 mg PO Q8H PRN 4 Days #20 tab 07/17/21 tablet ondansetron HCl 4 mg tablet 4 mg PO Q6H PRN #10 tab 10/14/21 Allergies Allergy/AdvReac Type Severity Reaction Status Date / Time passion fruit [PASSION FRUIT] Allergy Unknown UNK Verified 09/14/21 11:08 Review of Systems Review of Systems: Constitutional : No Weight loss, No Fever, No Chills, No Fatigue, No Malaise ENT/Mouth : No sore throat, No Rhinorrhea Eyes: No Eye Pain, No Swelling, No Redness Cardiovascular : No Chest Pain, No SOB, No Dyspnea on Exertion, No Orthopnea, No Edema, No Palpitations Respiratory : No Cough, No Sputum, No Wheezing Gastrointestinal : + Nausea, + Vomiting, No Diarrhea, No Constipation, + abdominal Pain, No Hematochezia, No Melena Genitourinary : No Dysuria, No Urinary Frequency, No Hematuria, Musculoskeletal : No joint pain, No Myalgias, No Joint Swelling Skin : No Skin Lesions, No rash Neuro : No Weakness, No Numbness, No Dizziness, No Headache Psych : No Anxiety/Panic, No Depression All other systems reviewed and are negative Yes all other systems are reviewed and are negative Gastrointestinal: Gastrointestinal: Reports nausea PMFSH Past Medical History Attestation statement: The following information was validated with the patient. Source: old records reviewed and nursing notes reviewed Medical History Diabetes Diabetic keto-acidosis Esophageal ulcer Gastroparesis Leukocytosis Social History Social History Household Members: None Housing: Apartment Do you presently have visiting nurse or other home services: No Alcohol intake: current Alcohol intake frequency: holidays/special occasions only Patient Tobacco Use Status: Never used Tobacco Substance Use Type: Marijuana Advance Directives: Yes Advance Directives on File: Yes Advance Directives Date on File: 01/22/21 service: No Current occupational status: employed Physical Exam Vital Signs: Vital Signs: Last Vital Signs Temp 99.1 F 10/22/21 00:09 Pulse 96 10/22/21 02:11 Resp 20 10/22/21 02:11 BP 146/85 H 10/22/21 02:11 Pulse Ox 96 10/22/21 02:11 BMI result Body Mass Index 24.3 VSS Appearance: Alert.? Oriented X3.? No acute distress.? Head: Normocephalic, atraumatic, no step-offs or deformities Eyes: Pupils equal, round and reactive to light.? ENT: Pharynx normal.? Neck: Normal inspection.? Neck supple.? CVS: Normal heart rate and rhythm.? Pulses normal.? Respiratory: No respiratory distress.? Breath sounds normal.? Abdomen: Soft and + abdomen diffusely tender..? Skin: Skin warm and dry.? Normal skin color.? Normal skin turgor.? Extremities: No lower extremity edema.? No calf ttp. 5/5 strength to bilateral upper and lower extremities Back: No midline tenderness, no C-spine tenderness, full range of motion, no CVA tenderness bilaterally Neuro: Oriented X 3.? No motor deficit.? No sensory deficit. CN 2-12 intact Course Reevaluation(s) Reevaluation #1: CBC with slight leukocytosis likely secondary to nausea/vomiting. Patient's sodiums noted to be slightly on the lower side, potassium elevated will give Lokelma. Patient's glucose elevated he is being hydrated. Calcium elevated likely secondary to dehydration. Acetone negative. VBG appears to be at patient's baseline, no acute signs of DKA at this time. Time: 00:49 Reevaluation #2: Patient tells me a little bit more about his story. He asked me if this could be cause partially by depression. He tells me that he has been having depressive episodes over the past 2 weeks. Increasing in nature he tells me he had 1 this morning and likely why his not eating. He tells me what triggered it is thinking about his dad's that occurred 2 years ago. He tells me he has never talked to anybody about his depression. And he is interested in speaking to somebody today. Denies SI and HI. Will do a p.o. challenge. Time: 01:45 Reevaluation #3: Sign out given to pending improvement and N consult. Time: 02:20 MDM - Nausea/Vomiting/Diarrhea MDM Narrative Medical decision making narrative: 2355 26 yo m PMHx type 1 DM, gastroparesis, recurrent DKA, presenting to the ED complaining of chills, diffuse abdominal discomfort, nausea, and vomiting since this afternoon. Reports higher sugars than usual at home. Physical examination significant for dry mucous membranes and a diffusely tender abdomen. Plan at this time is to obtain basic labs, VBG, acetone, fluids. Will rule out DKA. Unlikely appendicitis or cholecystitis. Medical Records Attestation: I reviewed the patient's medical records. Lab Data Attestation: I reviewed the patient's lab results. Result diagrams: 10/21/21 21:46 10/21/21 21:46 Labs: Lab Results 10/21/21 10/21/21 10/21/21 Range/Units 21:10 21:46 21:46 WBC 15.5 H (4.8-10.8) X10*3/uL RBC 5.77 (4.60-5.80) X10*6/uL Hgb 16.6 (14.0-18.0) g/dl Hct 50.0 (42.0-52.0) % MCV 86.7 (80.0-98.0) fL MCH 28.8 (27.0-33.0) pg MCHC 33.2 (31.0-36.0) g/dl RDW 12.7 (11.0-16.0) % Plt Count 317 (160-400) X10*3/uL MPV 10.1 (9.4-12.4) fL Immature Gran % (Auto) 0.3 (0.0-0.4) % Neut % (Auto) 88.0 H (45-73) % Lymph % (Auto) 6.8 L (20-40) % [place] % (Auto) 4.6 (2-11) % Eos % (Auto) 0.0 (0-4) % Baso % (Auto) 0.3 (0-2) % Lymph # (Auto) 1.1 L (1.2-4.9) X10*3/uL [place] # (Auto) 0.7 (0.1-1.2) X10*3/uL Eos # (Auto) 0.0 (0.0-0.4) X10*3/uL Baso # (Auto) 0.0 (0.0-0.2) X10*3/uL Abs Immat Gran (auto) 0.05 H (0.00-0.03) X10*3/uL Absolute Neuts (auto) 13.6 H (2.0-8.3) x10*3/uL Absolute Nucleated RBC 0.000 (0.0-0.012) X10*3/uL Nucleated RBC % (auto) 0.0 (0.0-0.2) /100WBC VBG pH (7.32-7.43) VBG pCO2 mmHg VBG pO2 mmHg VBG HCO3 (22-26) mmol/L VBG O2 Saturation % VBG Base Excess mmol/L Sodium 131 L (135-145) mmol/L Potassium 5.4 H D (3.3-5.1) mmol/L Chloride 92 L (96-108) mmol/L Carbon Dioxide 24 (22-29) mmol/L Anion Gap 20 (12-20) BUN 14 (9-16) mg/dL Creatinine 1.23 (0.5-1.4) mg/dL Estim Creat Clear Calc 82.8 Estimated GFR > 60 POC Glucose 269 H (60-115) mg/dL Random Glucose 296 H D (60-115) mg/dL Calcium 11.0 H D (8.4-10.2) mg/dL Total Bilirubin 0.4 (0.0-1.0) mg/dL AST 15 (5-37) U/L ALT 13 (0-40) U/L Alkaline Phosphatase 66 (39-117) U/L Total Protein 7.6 (6.5-8.0) g/dL Albumin 4.6 (3.5-5.0) g/dL Lipase 16 (8-78) U/L Acetone, Qual (Negative) 10/21/21 10/22/21 10/22/21 Range/Units 21:46 00:11 00:16 WBC (4.8-10.8) X10*3/uL RBC (4.60-5.80) X10*6/uL Hgb (14.0-18.0) g/dl Hct (42.0-52.0) % MCV (80.0-98.0) fL MCH (27.0-33.0) pg MCHC (31.0-36.0) g/dl RDW (11.0-16.0) % Plt Count (160-400) X10*3/uL MPV (9.4-12.4) fL Immature Gran % (Auto) (0.0-0.4) % Neut % (Auto) (45-73) % Lymph % (Auto) (20-40) % [place] % (Auto) (2-11) % Eos % (Auto) (0-4) % Baso % (Auto) (0-2) % Lymph # (Auto) (1.2-4.9) X10*3/uL [place] # (Auto) (0.1-1.2) X10*3/uL Eos # (Auto) (0.0-0.4) X10*3/uL Baso # (Auto) (0.0-0.2) X10*3/uL Abs Immat Gran (auto) (0.00-0.03) X10*3/uL Absolute Neuts (auto) (2.0-8.3) x10*3/uL Absolute Nucleated RBC (0.0-0.012) X10*3/uL Nucleated RBC % (auto) (0.0-0.2) /100WBC VBG pH 7.39 (7.32-7.43) VBG pCO2 44 mmHg VBG pO2 40 mmHg VBG HCO3 27 H (22-26) mmol/L VBG O2 Saturation 60.0 % VBG Base Excess 2.0 mmol/L Sodium (135-145) mmol/L Potassium (3.3-5.1) mmol/L Chloride (96-108) mmol/L Carbon Dioxide (22-29) mmol/L Anion Gap (12-20) BUN (9-16) mg/dL Creatinine (0.5-1.4) mg/dL Estim Creat Clear Calc Estimated GFR POC Glucose 316 H (60-115) mg/dL Random Glucose (60-115) mg/dL Calcium (8.4-10.2) mg/dL Total Bilirubin (0.0-1.0) mg/dL AST (5-37) U/L ALT (0-40) U/L Alkaline Phosphatase (39-117) U/L Total Protein (6.5-8.0) g/dL Albumin (3.5-5.0) g/dL Lipase (8-78) U/L Acetone, Qual Negative (Negative) Critical Care Time Critical Care Time Critical Care Time: No Discharge Plan Discharge Clinical Impression: Nausea & vomiting, Abdominal pain, Depression Patient Disposition: Still a Patient Prescriptions: No Action Novolin 70-30 FlexPen U-100 100 unit/mL (70-30) Insulin Pen 55 unit SUBCUT BID Qty: 0 0RF ondansetron 4 mg tablet,disintegrating 4 mg PO Q8H PRN (Reason: nausea and vomiting) 4 Days Qty: 20 0RF omeprazole 20 mg Capsule,Delayed Release(Dr/Ec) 20 mg PO DAILY@0630 0RF ondansetron HCl 4 mg tablet 4 mg PO Q6H PRN (Reason: nausea and vomiting) Qty: 10 0RF
[2021-10-22 00:02] LABS: Acetone, serum QL Negative (Negative)
[2021-10-22 00:09] VITALS: BP 164/107; PULSE 98; RESP 12; TEMP 37.3; O2SAT 95
[2021-10-22] MEDS: 0.9 % Sodium Chloride 1,000 ML 999 ML IV ×2 (00:15→01:13)
--- NOTE | 2021-10-22 00:16 | PC.NURSE ---
Pt a&o, no sob or chest pain, pt is vomiting at this time. Provider is aware. Iv placed and medicated per Mar.
[2021-10-22 00:19] LABS: VBG HCO3 27 mmol/L (22-26); VBG pCO2 44 mmHg; VBG pH 7.39 (7.32-7.43); VBG pO2 40 mmHg
[2021-10-22] MEDS: ondansetron HCL 4 MG/2 ML VIAL IVPUSH (00:20)
[2021-10-22 00:21] LABS: Glucose, Whole Blood 316 mg/dL (60-115)
[2021-10-22 00:23] LABS: Venous Blood Gas Refer to POC result
--- NOTE | 2021-10-22 00:49 | ECG_ITS ---
Test Reason : WEAK Blood Pressure : / mmHG Vent. Rate : 092 BPM Atrial Rate : 092 BPM P-R Int : 138 ms QRS Dur : 076 ms QT Int : 360 ms P-R-T Axes : 039 027 017 degrees QTc Int : 445 ms Normal sinus rhythm Normal ECG When compared with ECG of 14-AUG-2021 16:07, No significant change was found Referred By: Priya Barclay Electronically Signed By:WENDY BRAXTON
[2021-10-22] MEDS: Sodium Zirconium Cyclosilicate 10 GM POWD.PACK PO (01:12)
[2021-10-22 02:11] VITALS: BP 146/85; PULSE 96; RESP 20; O2SAT 96
--- NOTE | 2021-10-22 03:55 | PC.NURSE ---
pt is currently sleeping with no sign of distress. N/V resolved at this time. Will continue to monitor.
[2021-10-22 04:21] VITALS: BP 126/65; PULSE 86; RESP 20; O2SAT 97
== END 2021-10-22 04:40 | disposition home or self-care (01) ==
PROVIDERS: Physician Assistant; Emergency Provider Internal Medicine; PCP Internal Medicine
DX: R11.2 Nausea with vomiting, unspecified (principal); R10.9 Unspecified abdominal pain; F33.1 Major depressive disorder, recurrent, moderate; Z79.899 Other long term (current) drug therapy
CPT/HCPCS: 36415; 80053; 82009; 82803; 82947; 83690; 85025; 93005; 96361; 96374; 99284; J2405

== ENCOUNTER 2021-12-26 12:26 | Emergency (ER) | payer OTHER, SELFPAY ==
[2021-12-26 13:10] VITALS: BP 143/100; PULSE 103; RESP 18; TEMP 36.6; O2SAT 100; BMI 25.8
[2021-12-26 13:20] LABS: Glucose, Whole Blood 369 mg/dL (60-115)
[2021-12-26 14:24] LABS: MANUAL DIFF FLAG NO
[2021-12-26 14:26] LABS: Basophils Percent Auto 0.1 % (0-2); Hematocrit 47.5 % (42.0-52.0); Hemoglobin 16.3 g/dl (14.0-18.0); Imm Gran Abs Auto 0.04 X10*3/uL (0.00-0.03); Imm Gran Pct Auto 0.3 % (0.0-0.4); Lymphocytes Absolute Auto 1.6 X10*3/uL (1.2-4.9); Lymphocytes Percent Auto 10.5 % (20-40); Mean Corpuscular HGB Conc 34.3 g/dl (31.0-36.0); Mean Corpuscular Hemoglobin 28.8 pg (27.0-33.0); Mean Corpuscular Volume 83.9 fL (80.0-98.0); Mean Platelet Volume 9.7 fL (9.4-12.4); Monocytes Absolute Auto 1.5 X10*3/uL (0.1-1.2); Monocytes Percent Auto 9.8 % (2-11); Neutrophils Absolute Auto 11.7 x10*3/uL (2.0-8.3); Neutrophils Percent Auto 79.3 % (45-73); Platelet Count 313 X10*3/uL (160-400); Red Blood Count 5.66 X10*6/uL (4.60-5.80); Red Cell Distribution Width 11.9 % (11.0-16.0); White Blood Count 14.7 X10*3/uL (4.8-10.8)
[2021-12-26 14:46] LABS: Alanine Aminotransferase 15 U/L (0-40); Albumin Level 4.6 g/dL (3.5-5.0); Alkaline Phosphatase 79 U/L (39-117); Anion Gap 21 (12-20); Aspartate Amino Transferase 12 U/L (5-37); Bilirubin Direct 0.4 mg/dL (0.0-0.5); Bilirubin Total 1.1 mg/dL (0.0-1.0); Blood Urea Nitrogen 20 mg/dL (9-16); Calcium 9.7 mg/dL (8.4-10.2); Carbon Dioxide 20 mmol/L (22-29); Chloride 91 mmol/L (96-108); Creatinine Clr Calc Pharmacy 71.7; Estimated Glomerular Filt Rate > 60; Glucose Random 381 mg/dL (60-115); Lipase 11 U/L (8-78); Potassium 5.3 mmol/L (3.3-5.1); Sodium 127 mmol/L (135-145); Total Protein 7.9 g/dL (6.5-8.0)
--- NOTE | 2021-12-26 15:30 | ED.GENADULT ---
HPI - General Adult General Chief complaint: Nausea/Vomiting/Diarrhea Stated complaint: dehydration/vomiting Time Seen by Provider: 12/26/21 13:17 Source: patient Mode of arrival: ambulatory Limitations: no limitations History of Present Illness HPI narrative: Patient is a 26 year old male presenting to the emergency department today with nausea, vomiting, and feeling dehydrated. Patient states that he has a history of diabetes and knows that his sugar will be high. Patient states that he has been in DKA before and knows that this isn't it. Patient states that he has been increasingly more anxious over the last few days and that often causes him to get nauseous and throw up. Patient denies any dizziness, lightheadedness, abdominal pain, fever, chills, blurry vision, double vision, loss of vision, chest pain, difficulty breathing, shortness of breath, back pain, night sweats, pain with urination, increased urinary frequency, increased urinary urgency, blood in his urine or stool, syncope or a near syncopal episode, recent trauma or falls, bowel incontinence, bladder incontinence, bowel retention, bladder retention, or any other complaints at this time. Onset (ago): day(s) Severity: mild Severity scale (1-10): 3 Relieving factors: none Exacerbating factors: none Associated symptoms: nausea/vomiting Treatments prior to arrival: none Related Data Home Medications Medication Instructions Recorded Confirmed omeprazole 20 mg capsule,delayed 20 mg PO DAILY@0630 08/14/21 08/14/21 release Previous Rx's Medication Instructions Recorded insulin NPH-regular 70-30 U-100 55 unit (0.55 mL) SUBCUT BID #0 ml 07/17/21 insulin 100 unit/mL subcutaneous pen (Novolin 70-30 FlexPen U-100 Insulin) ondansetron 4 mg disintegrating 4 mg PO Q8H PRN 4 Days #20 tab 07/17/21 tablet ondansetron HCl 4 mg tablet 4 mg PO Q6H PRN #10 tab 10/14/21 lorazepam 1 mg tablet (Ativan) 1 mg PO BID PRN #20 tab 10/22/21 metoclopramide HCl 10 mg tablet 10 mg PO Q6H PRN #60 tab 10/22/21 (Reglan) ondansetron 4 mg disintegrating 4 mg PO Q8H 3 Days #9 tab 12/26/21 tablet Allergies Allergy/AdvReac Type Severity Reaction Status Date / Time passion fruit [PASSION FRUIT] Allergy Unknown UNK Verified 12/26/21 13:10 Review of Systems Constitutional: Constitutional: Reports no additional constitutional complaints, Denies chills, Denies fever(s) and Denies night sweats Eyes: Eyes: Reports no additional eye complaints, Denies blurry vision, Denies change in vision, Denies diplopia, Denies eye discharge, Denies loss of vision and Denies eye pain ENT: Denies dizziness Cardiovascular: Cardiovascular: Reports no additional cardiovascular complaints, Denies chest pain, Denies lightheadedness, Denies Loss of Consciousness and Denies dyspnea Respiratory: Respiratory: Reports no additional respiratory complaints and Denies dyspnea Gastrointestinal: Gastrointestinal: Reports no additional gastrointestinal complaints, Denies abdominal pain, Denies melena, Denies hematochezia, Denies change in bowel habits, Denies change in stool character, Reports nausea and Reports vomiting Genitourinary: Genitourinary: Reports no additional male genitourinary complaints, Denies hematuria, Denies oliguria, Denies difficulty urinating, Denies dysuria, Denies urinary frequency, Denies urinary hesitancy, Denies urinary incontinence and Denies urinary urgency Musculoskeletal: Musculoskeletal: Reports no additional musculoskeletal complaints, Denies numbness and Denies tingling Neurologic: Denies dizziness, Denies loss of vision, Denies numbness and Denies tingling Psychiatric: Psychiatric: Reports no additional psychiatric complaints Endocrine: Endocrine: Reports no additional endocrine complaints Hematologic/Lymphatic: Hematologic/Lymphatic: Reports no additional hematologic/lymphatic complaints Allergic/Immunologic: Allergic/Immunologic: Reports no additional allergic/immunologic complaints [facility] Past Medical History Attestation statement: The following information was validated with the patient. Source: old records reviewed Medical History Diabetes Diabetic keto-acidosis Esophageal ulcer Gastroparesis Leukocytosis Social History Social History Household Members: None Housing: Apartment Do you presently have visiting nurse or other home services: No Alcohol intake: current Alcohol intake frequency: does not drink Patient Tobacco Use Status: Never used Tobacco Substance Use Type: Marijuana Advance Directives: Yes Advance Directives on File: Yes Advance Directives Date on File: 01/22/21 service: No Current occupational status: employed Physical Exam ED Vital Signs: Vital Signs - 24 hr 12/26/21 13:10 Temperature 97.9 F Pulse Rate 103 H Respiratory Rate 18 Blood Pressure 143/100 H Pulse Oximetry 100 BMI result Body Mass Index 25.8 Const General: cooperative, no acute distress, alert and awake Nutritional Appearance: well nourished Orientation/consciousness: patient oriented x3 Limitations: no limitations HENMT Head: Yes normal to inspection and Yes atraumatic Ears: hearing grossly normal bilaterally and external ears normal General nose exam: Normal external nose present, no nasal discharge noted and no epistaxis Face and sinus: Yes normal facial exam, No abrasion and No laceration Mouth: Normal oral and palatal mucosa present, no drooling and no muffled voice Eyes General: appearance normal, both eyes and all related structures Periorbital: periorbital findings normal Eyelids: Yes eyelids normal Conjunctivae: conjunctivae normal Pupils: Equal, round and reactive pupils present EOM: EOMs intact bilaterally Neck Neck: Yes normal visual inspection, Yes full ROM and Yes no lymphadenopathy Chest Chest palpation & inspection: normal inspection of the chest Resp Effort & Inspection: normal respiratory effort and able to speak in complete sentences Auscultation: clear to auscultation bilaterally Cardio Rate: regular rate Rhythm: regular rhythm GI Inspection: Yes normal to inspection Palpation (GI): Soft to palpation, not firm, nontender and no guarding Neuro General: patient oriented x3 and moves all extremities Cranial nerves: Yes Equal, round and reactive pupils present Cognition (Neuro): normal cognition Motor exam (neuro): 5/5 motor strength present throughout Sensory Exam: Normal double simultaneous stimulation for sensation Coordination: [id number] test normal Extrem General: Yes normal to inspection, Yes full ROM and Yes capillary refill normal Psych Appearance: grossly normal Mental Status: mental status grossly normal Affect: normal affect Attitude: cooperative Thought process: Normal thought process present Thought content: Normal thought content present Insight: Good insight present (Psych) Medical Decision Making MDM Narrative Medical decision making narrative: Patient is a 26 year old male presenting to the emergency department today with nausea and vomiting. Patient's physical exam was unremarkable. Patient's blood work showed an elevated glucose at 381. Patient's sodium is 127 however, adjusted, it is 131 which is consistent with the patient's baseline. I explained my physical exam findings as well as all test results to the patient. I answered all questions asked by the patient. Patient received IV Zofran and fluids which he stated helped his symptoms significantly. I stressed the importance of the patient taking his medication as prescribed. I stressed the importance of the patient following up with his primary care provider. I stressed the importance of the patient returning to the emergency department immediately if his symptoms were to worsen or if he were to develop any dizziness, shortness of breath, difficulty breathing, chest pain, blurry vision, loss of vision, nausea, vomiting, abdominal pain, fever, chills, back pain, or any other complaints. Patient verbalized agreement and understanding with this treatment plan and discharge. Differential Diagnosis Differential Diagnosis: dehydration, nausea, vomiting Medical Records Medical records reviewed: Yes I reviewed the patient's medical records. Lab Data Lab results reviewed: Yes I reviewed the patient's lab results. Result diagrams: 12/26/21 14:20 12/26/21 14:20 Labs: Lab Results 12/26/21 12/26/21 12/26/21 Range/Units 13:14 14:20 14:20 WBC 14.7 H (4.8-10.8) X10*3/uL RBC 5.66 (4.60-5.80) X10*6/uL Hgb 16.3 (14.0-18.0) g/dl Hct 47.5 (42.0-52.0) % MCV 83.9 (80.0-98.0) fL MCH 28.8 (27.0-33.0) pg MCHC 34.3 (31.0-36.0) g/dl RDW 11.9 (11.0-16.0) % Plt Count 313 (160-400) X10*3/uL MPV 9.7 (9.4-12.4) fL Immature Gran % (Auto) 0.3 (0.0-0.4) % Neut % (Auto) 79.3 H (45-73) % Lymph % (Auto) 10.5 L (20-40) % Clare % (Auto) 9.8 (2-11) % Eos % (Auto) 0.0 (0-4) % Baso % (Auto) 0.1 (0-2) % Lymph # (Auto) 1.6 (1.2-4.9) X10*3/uL Clare # (Auto) 1.5 H (0.1-1.2) X10*3/uL Eos # (Auto) 0.0 (0.0-0.4) X10*3/uL Baso # (Auto) 0.0 (0.0-0.2) X10*3/uL Abs Immat Gran (auto) 0.04 H (0.00-0.03) X10*3/uL Absolute Neuts (auto) 11.7 H (2.0-8.3) x10*3/uL Absolute Nucleated RBC 0.000 (0.0-0.012) X10*3/uL Nucleated RBC % (auto) 0.0 (0.0-0.2) /100WBC Sodium 127 L (135-145) mmol/L Potassium 5.3 H (3.3-5.1) mmol/L Chloride 91 L (96-108) mmol/L Carbon Dioxide 20 L (22-29) mmol/L Anion Gap 21 H (12-20) BUN 20 H (9-16) mg/dL Creatinine 1.42 H (0.5-1.4) mg/dL Estim Creat Clear Calc 71.7 Estimated GFR > 60 POC Glucose 369 H* (60-115) mg/dL Random Glucose 381 H* (60-115) mg/dL Calcium 9.7 D (8.4-10.2) mg/dL Total Bilirubin 1.1 H (0.0-1.0) mg/dL Direct Bilirubin 0.4 (0.0-0.5) mg/dL AST 12 (5-37) U/L ALT 15 (0-40) U/L Alkaline Phosphatase 79 (39-117) U/L Total Protein 7.9 (6.5-8.0) g/dL Albumin 4.6 (3.5-5.0) g/dL Lipase 11 (8-78) U/L Discharge Plan Discharge Clinical Impression: Nausea & vomiting Patient Disposition: Home, Self-Care Instructions: Acute Nausea and Vomiting (ED) Additional Instructions: Follow up with your primary care provider. Return to the emergency department immediately if your symptoms worsen or if you develop any dizziness, shortness of breath, difficulty breathing, chest pain, blurry vision, loss of vision, nausea, vomiting, abdominal pain, fever, chills, back pain, or any other complaints. Prescriptions: New ondansetron 4 mg tablet,disintegrating 4 mg PO Q8H 3 Days Qty: 9 0RF No Action Novolin 70-30 FlexPen U-100 100 unit/mL (70-30) Insulin Pen 55 unit SUBCUT BID Qty: 0 0RF ondansetron 4 mg tablet,disintegrating 4 mg PO Q8H PRN (Reason: nausea and vomiting) 4 Days Qty: 20 0RF omeprazole 20 mg Capsule,Delayed Release(Dr/Ec) 20 mg PO DAILY@0630 0RF ondansetron HCl 4 mg tablet 4 mg PO Q6H PRN (Reason: nausea and vomiting) Qty: 10 0RF metoclopramide HCl [Reglan] 10 mg tablet 10 mg PO Q6H PRN (Reason: nausea and vomiting) Qty: 60 0RF Rx Instructions: Take it half an hour before you have any meals lorazepam [Ativan] 1 mg tablet 1 mg PO BID PRN (Reason: anxiety) Qty: 20 0RF Referrals: [facility] [place] [facility] Group] [facility] [place] [facility]] [facility] [place] [facility] [Provider Group] Stand Alone Forms: Work/School Release Print Language: Croatian
[2021-12-26] MEDS: 0.9 % Sodium Chloride 1,000 ML 999 ML IVCONT (16:13)
[2021-12-26] MEDS: ondansetron HCL 4 MG/2 ML VIAL IVPUSH (16:13)
[2021-12-26 22:42] LABS: Appearance Urine CLEAR; Color Urine YELLOW; Glucose Urine UA >=1000 MG/DL (NEG); Leukocyte Esterase Urine NEG (NEG); Nitrite Urine NEG (NEG); PH 5.5 (5.0-8.0); Specific Gravity - Urine >= 1.030 (1.005-1.025); UACC Culture Trigger NO; Urine Blood TRACE (NEG); Urine Ketones >=80 MG/DL (NEG); Urine Protein TRACE MG/DL (NEG-TRACE)
[2021-12-26 22:56] LABS: Squamous Epithelial Cell Urine TRACE /LPF; WBC Urine 0-2 /HPF (0-4)
== END 2021-12-26 22:42 | disposition home or self-care (01) ==
PROVIDERS: Emergency Provider Internal Medicine
DX: E86.0 Dehydration (principal); R11.2 Nausea with vomiting, unspecified; Z79.899 Other long term (current) drug therapy
CPT/HCPCS: 36415; 80048; 80076; 81001; 82947; 83690; 85025; 96361; 96374; 99284; J2405

== ENCOUNTER 2021-12-28 10:49 | Inpatient (IN) | payer OTHER, SELFPAY ==
[2021-12-28 11:04] VITALS: BP 147/103; PULSE 116; RESP 18; TEMP 37; O2SAT 98; BMI 25.8
[2021-12-28 11:14] LABS: MANUAL DIFF FLAG NO
[2021-12-28 11:16] LABS: Basophils Percent Auto 0.2 % (0-2); Hematocrit 48.4 % (42.0-52.0); Hemoglobin 16.3 g/dl (14.0-18.0); Imm Gran Abs Auto 0.04 X10*3/uL (0.00-0.03); Imm Gran Pct Auto 0.3 % (0.0-0.4); Lymphocytes Absolute Auto 1.5 X10*3/uL (1.2-4.9); Lymphocytes Percent Auto 12.5 % (20-40); Mean Corpuscular HGB Conc 33.7 g/dl (31.0-36.0); Mean Corpuscular Hemoglobin 28.4 pg (27.0-33.0); Mean Corpuscular Volume 84.5 fL (80.0-98.0); Mean Platelet Volume 9.6 fL (9.4-12.4); Monocytes Absolute Auto 1.3 X10*3/uL (0.1-1.2); Monocytes Percent Auto 10.5 % (2-11); Neutrophils Absolute Auto 9.3 x10*3/uL (2.0-8.3); Neutrophils Percent Auto 76.5 % (45-73); Platelet Count 336 X10*3/uL (160-400); Red Blood Count 5.73 X10*6/uL (4.60-5.80); Red Cell Distribution Width 11.9 % (11.0-16.0); White Blood Count 12.2 X10*3/uL (4.8-10.8)
[2021-12-28 11:32] LABS: Anion Gap 27 (12-20); Blood Urea Nitrogen 20 mg/dL (9-16); Calcium 9.2 mg/dL (8.4-10.2); Carbon Dioxide 10 mmol/L (22-29); Chloride 96 mmol/L (96-108); Creatinine Clr Calc Pharmacy 66.6; Estimated Glomerular Filt Rate 56; Glucose Random 331 mg/dL (60-115); Potassium 4.6 mmol/L (3.3-5.1); Sodium 128 mmol/L (135-145)
[2021-12-28 11:52] VITALS: BP 160/104; PULSE 100; RESP 19; TEMP 36.9; O2SAT 100
--- NOTE | 2021-12-28 11:57 | PC.NURSE ---
assumed care of this pt and he stated that he is a diabetic and hasnt eaten in 5 days and hasnt taken any insulin. no energy and very tired all the time.
--- NOTE | 2021-12-28 12:08 | ECG_ITS ---
Test Reason : NAUSEA/VOMITTING Blood Pressure : / mmHG Vent. Rate : 103 BPM Atrial Rate : 103 BPM P-R Int : 128 ms QRS Dur : 078 ms QT Int : 324 ms P-R-T Axes : 049 058 023 degrees QTc Int : 424 ms Sinus tachycardia Nonspecific T wave abnormality Abnormal ECG When compared with ECG of 22-OCT-2021 00:50, Nonspecific T wave abnormality, worse in Inferior leads Referred By: Moshe Worthy Electronically Signed By:Roberto Agee
[2021-12-28 12:23] LABS: Acetone, serum QL Moderate (Negative)
[2021-12-28 12:34] LABS: INTERNATIONAL NORM RATIO 0.9 (0.9-1.1); Prothrombin Time 10.6 SEC (9.9-13.0)
[2021-12-28 12:37] LABS: Partial Thromboplastin Time 30.3 SEC (24.1-38.0)
[2021-12-28 12:39] LABS: Venous Blood Gas Refer to POC result
[2021-12-28 12:40] LABS: VBG Base Excess -10.2 mmol/L; VBG HCO3 16 mmol/L (22-26); VBG pCO2 37 mmHg; VBG pH 7.23 (7.32-7.43); VBG pO2 42 mmHg
[2021-12-28] MEDS: Insulin Regular, Human 100 UNIT/ML 3 ML VIAL 10 UNIT IVPUSH (12:40)
[2021-12-28 12:46] LABS: Troponin-I High Sensitivity 5.3 ng/L (<3.5-35.0)
[2021-12-28 13:40] LABS: Lipase 14 U/L (8-78)
[2021-12-28 13:51] LABS: Glucose, Whole Blood 173 mg/dL (60-115)
[2021-12-28] MEDS: Dextrose 5 % and 0.45 % NaCl 1,000 ML 150 ML IVCONT (14:16)
[2021-12-28] MEDS: 0.9 % Sodium Chloride 1,000 ML 999 ML IV ×3 (14:17→16:51)
[2021-12-28] MEDS: Morphine Sulfate 4 MG/ML CARTRIDGE IVPUSH (14:26)
--- NOTE | 2021-12-28 14:42 | ED.GENADULT ---
HPI - General Adult General Chief complaint: Nausea/Vomiting/Diarrhea Stated complaint: dehydration, vomitting Time Seen by Provider: 12/28/21 12:00 Source: patient Mode of arrival: ambulatory Limitations: no limitations History of Present Illness HPI narrative: 46-year-old male presents to ED for feeling weak and dehydrated. Patient states history of diabetes and not able to take his insulin. Patient states no fever chills, dysuria, hematuria. Flank pain, fever, or chills. Patient admits his glucose has been elevated with some abdominal discomfort. Patient was seen his Tuesday but then discharged. Related Data Home Medications Medication Instructions Recorded Confirmed insulin lispro 100 unit/mL 100 - 120 unit SUBCUT DAILY 12/28/21 12/28/21 subcutaneous solution sertraline 25 mg tablet 1 tab PO DAILY 12/28/21 12/28/21 Previous Rx's Medication Instructions Recorded ondansetron HCl 4 mg tablet 4 mg PO Q6H PRN #10 tab 10/14/21 Allergies Allergy/AdvReac Type Severity Reaction Status Date / Time passion fruit [PASSION FRUIT] Allergy Unknown UNK Verified 12/26/21 13:10 Review of Systems Review of Systems: Nausea, vomiting, elevated glucose, abdominal discomfort Yes all other systems are reviewed and are negative [facility] Past Medical History Medical History (Updated 12/28/21 @ 16:41 by ROSAURA Garg) Diabetes Diabetic keto-acidosis Esophageal ulcer Gastroparesis Leukocytosis Social History Social History Household Members: None Housing: Apartment Do you presently have visiting nurse or other home services: No Alcohol intake: current Alcohol intake frequency: holidays/special occasions only Alcohol type: beer Patient Tobacco Use Status: Never used Tobacco Substance Use Type: Marijuana Substance Use Frequency: Daily Last Used Substance: Weeks (ago) Any prior treatment program specific to substance use: No Advance Directives: Yes Advance Directives on File: Yes Advance Directives Date on File: 01/22/21 service: No Current occupational status: employed Physical Exam ED Vital Signs: Vital Signs - 24 hr 12/28/21 11:04 12/28/21 11:52 Temperature 98.6 F 98.5 F Pulse Rate 116 H 100 Respiratory Rate 18 19 Blood Pressure 147/103 H 160/104 H Pulse Oximetry 98 100 BMI result Body Mass Index 25.8 Const General: cooperative, healthy appearing, comfortable, no acute distress, well developed, alert, awake and Physically active Orientation/consciousness: patient oriented x3 [facility] Head: Yes normal to inspection, Yes No palpable skull fracture present, Yes normocephalic, Yes atraumatic and No abrasion Eyes General: appearance normal, both eyes and all related structures Neck Neck: Yes normal visual inspection, Yes full ROM, Yes no lymphadenopathy, Yes no meningeal signs, Yes trachea midline, Yes supple, No anterior neck swelling and No tender Chest Chest palpation & inspection: normal inspection of the chest and normal palpation of entire chest wall Resp Effort & Inspection: normal respiratory effort and able to speak in complete sentences Auscultation: clear to auscultation bilaterally Cardio Jugular venous distension: no JVD GI Inspection: Yes normal to inspection and No abdominal wall ecchymosis Palpation (GI): Soft to palpation, not firm, nontender, no guarding and not rigid General: No CVA tenderness and Yes no CVA tenderness Back/Spine/Pelvis Back: no CVA tenderness, No CVA tenderness and No back tenderness Skin General skin exam: no rashes or lesions noted and elasticity normal Neuro General: patient oriented x3, gait normal, no meningeal signs and CN's II-XI intact bilaterally Cranial nerves: Yes CN's II-XII intact bilaterally Extrem General: Yes normal to inspection and Yes full ROM Psych Appearance: grossly normal, well kempt and not disheveled Course Course Course Narrative: will order labs and fluids. Reevaluation(s) Reevaluation #1: Patient is in DKA. 10 units of IV insulin and normal saline fluids was ordered. VBG pH 7.2. Bicarb 16. Patient placed on insulin drip. Patient discussed with Dr. Morrison who accepted patient into ICU. He recommends patient being on D5 LR. patient admitted to ICU. EKG negative STEMI. Time: 15:04 Medical Decision Making MDM Narrative Medical decision making narrative: DKA Lab Data Result diagrams: 12/28/21 11:10 12/28/21 11:10 Labs: Lab Results 12/28/21 12/28/21 12/28/21 Range/Units 11:10 11:10 12:23 WBC 12.2 H (4.8-10.8) X10*3/uL RBC 5.73 (4.60-5.80) X10*6/uL Hgb 16.3 (14.0-18.0) g/dl Hct 48.4 (42.0-52.0) % MCV 84.5 (80.0-98.0) fL MCH 28.4 (27.0-33.0) pg MCHC 33.7 (31.0-36.0) g/dl RDW 11.9 (11.0-16.0) % Plt Count 336 (160-400) X10*3/uL MPV 9.6 (9.4-12.4) fL Immature Gran % (Auto) 0.3 (0.0-0.4) % Neut % (Auto) 76.5 H (45-73) % Lymph % (Auto) 12.5 L (20-40) % Harding % (Auto) 10.5 (2-11) % Eos % (Auto) 0.0 (0-4) % Baso % (Auto) 0.2 (0-2) % Lymph # (Auto) 1.5 (1.2-4.9) X10*3/uL Harding # (Auto) 1.3 H (0.1-1.2) X10*3/uL Eos # (Auto) 0.0 (0.0-0.4) X10*3/uL Baso # (Auto) 0.0 (0.0-0.2) X10*3/uL Abs Immat Gran (auto) 0.04 H (0.00-0.03) X10*3/uL Absolute Neuts (auto) 9.3 H (2.0-8.3) x10*3/uL Absolute Nucleated RBC 0.000 (0.0-0.012) X10*3/uL Nucleated RBC % (auto) 0.0 (0.0-0.2) /100WBC PT 10.6 (9.9-13.0) SEC INR 0.9 (0.9-1.1) APTT 30.3 (24.1-38.0) SEC VBG pH (7.32-7.43) VBG pCO2 mmHg VBG pO2 mmHg VBG HCO3 (22-26) mmol/L VBG O2 Saturation % VBG Base Excess mmol/L Sodium 128 L (135-145) mmol/L Potassium 4.6 (3.3-5.1) mmol/L Chloride 96 (96-108) mmol/L Carbon Dioxide 10 L* D (22-29) mmol/L Anion Gap 27 H (12-20) BUN 20 H (9-16) mg/dL Creatinine 1.53 H (0.5-1.4) mg/dL Estim Creat Clear Calc 66.6 Estimated GFR 56 POC Glucose (60-115) mg/dL Random Glucose 331 H (60-115) mg/dL Calcium 9.2 (8.4-10.2) mg/dL Troponin I High Sens (<3.5-35.0) ng/L Lipase 14 (8-78) U/L Acetone, Qual Moderate H (Negative) COVID-19 (EARLINE) (Negative) COVID-19 Clin Com 12/28/21 12/28/21 12/28/21 Range/Units 12:23 12:31 13:48 WBC (4.8-10.8) X10*3/uL RBC (4.60-5.80) X10*6/uL Hgb (14.0-18.0) g/dl Hct (42.0-52.0) % MCV (80.0-98.0) fL MCH (27.0-33.0) pg MCHC (31.0-36.0) g/dl RDW (11.0-16.0) % Plt Count (160-400) X10*3/uL MPV (9.4-12.4) fL Immature Gran % (Auto) (0.0-0.4) % Neut % (Auto) (45-73) % Lymph % (Auto) (20-40) % Harding % (Auto) (2-11) % Eos % (Auto) (0-4) % Baso % (Auto) (0-2) % Lymph # (Auto) (1.2-4.9) X10*3/uL Harding # (Auto) (0.1-1.2) X10*3/uL Eos # (Auto) (0.0-0.4) X10*3/uL Baso # (Auto) (0.0-0.2) X10*3/uL Abs Immat Gran (auto) (0.00-0.03) X10*3/uL Absolute Neuts (auto) (2.0-8.3) x10*3/uL Absolute Nucleated RBC (0.0-0.012) X10*3/uL Nucleated RBC % (auto) (0.0-0.2) /100WBC PT (9.9-13.0) SEC INR (0.9-1.1) APTT (24.1-38.0) SEC VBG pH 7.23 L (7.32-7.43) VBG pCO2 37 mmHg VBG pO2 42 mmHg VBG HCO3 16 L (22-26) mmol/L VBG O2 Saturation 61.0 % VBG Base Excess -10.2 mmol/L Sodium (135-145) mmol/L Potassium (3.3-5.1) mmol/L Chloride (96-108) mmol/L Carbon Dioxide (22-29) mmol/L Anion Gap (12-20) BUN (9-16) mg/dL Creatinine (0.5-1.4) mg/dL Estim Creat Clear Calc Estimated GFR POC Glucose 173 H (60-115) mg/dL Random Glucose (60-115) mg/dL Calcium (8.4-10.2) mg/dL Troponin I High Sens 5.3 (<3.5-35.0) ng/L Lipase (8-78) U/L Acetone, Qual (Negative) COVID-19 (EARLINE) (Negative) COVID-19 Clin Com 12/28/21 12/28/21 Range/Units 15:54 16:05 WBC (4.8-10.8) X10*3/uL RBC (4.60-5.80) X10*6/uL Hgb (14.0-18.0) g/dl Hct (42.0-52.0) % MCV (80.0-98.0) fL MCH (27.0-33.0) pg MCHC (31.0-36.0) g/dl RDW (11.0-16.0) % Plt Count (160-400) X10*3/uL MPV (9.4-12.4) fL Immature Gran % (Auto) (0.0-0.4) % Neut % (Auto) (45-73) % Lymph % (Auto) (20-40) % Harding % (Auto) (2-11) % Eos % (Auto) (0-4) % Baso % (Auto) (0-2) % Lymph # (Auto) (1.2-4.9) X10*3/uL Harding # (Auto) (0.1-1.2) X10*3/uL Eos # (Auto) (0.0-0.4) X10*3/uL Baso # (Auto) (0.0-0.2) X10*3/uL Abs Immat Gran (auto) (0.00-0.03) X10*3/uL Absolute Neuts (auto) (2.0-8.3) x10*3/uL Absolute Nucleated RBC (0.0-0.012) X10*3/uL Nucleated RBC % (auto) (0.0-0.2) /100WBC PT (9.9-13.0) SEC INR (0.9-1.1) APTT (24.1-38.0) SEC VBG pH (7.32-7.43) VBG pCO2 mmHg VBG pO2 mmHg VBG HCO3 (22-26) mmol/L VBG O2 Saturation % VBG Base Excess mmol/L Sodium (135-145) mmol/L Potassium (3.3-5.1) mmol/L Chloride (96-108) mmol/L Carbon Dioxide (22-29) mmol/L Anion Gap (12-20) BUN (9-16) mg/dL Creatinine (0.5-1.4) mg/dL Estim Creat Clear Calc Estimated GFR POC Glucose 230 H (60-115) mg/dL Random Glucose (60-115) mg/dL Calcium (8.4-10.2) mg/dL Troponin I High Sens (<3.5-35.0) ng/L Lipase (8-78) U/L Acetone, Qual (Negative) COVID-19 (EARLINE) Negative (Negative) COVID-19 Clin Com See Note ECG Data Interpretation: Sinus tachycardia. Ventricular rate 103. Pr interval 128. Care at 70. QTC Critical Care Time Critical Care Time Critical Care Time: Yes Total Critical Care Time: 60 Attestation: DKA. Fluids ordered. Insulin drip ordered. Case accepted by ICU doctor. Discharge Plan Discharge Clinical Impression: Diabetic keto-acidosis Patient Disposition: Admitted As Inpatient
[2021-12-28] MEDS: Insulin Regular/NS 100 UNIT/100 ML PLAST..BAG 7 UNIT IVCONT (14:49)
[2021-12-28] MEDS: Dextrose 5 % and Lactated Ring 1,000 ML 150 ML IVCONT ×2 (15:41→21:54)
[2021-12-28 15:59] LABS: Glucose, Whole Blood 230 mg/dL (60-115)
--- NOTE | 2021-12-28 16:17 | P.HPCC_ITS ---
History of Present Illness Date of Service: 12/28/21 Chief Complaint: nausea and vomiting 26-year-old gentleman with underlying diabetes mellitus and poor compliance with insulin regimen admitted on 12/28/2021 with complaints of nausea and vomiting secondary to diabetic ketoacidosis. On ER evaluation patient was noted to have metabolic acidosis secondary to diabetic ketoacidosis, he has been started on IV insulin drip and IV fluids and admitted to intensive care unit. Review of Systems Constitutional: Constitutional: Denies daytime sleepiness, Denies excessive sweating, Denies fatigue, Denies fever(s), Denies lethargy, Denies malaise, Denies night sweats, Denies snoring and Denies weight loss Eyes: Eyes: Denies blurry vision and Denies itchy eyes ENT: Denies nasal congestion, Denies post nasal drip, Denies sinus pain, Denies sinus pressure and Denies other ( Thrush) Cardiovascular: Cardiovascular: Denies chest pain, Denies pedal edema, Denies dyspnea, Denies orthopnea and Denies paroxysmal nocturnal dyspnea Respiratory: Respiratory: Denies cough, Denies hemoptysis, Denies excessive phlegm production, Denies dyspnea, Denies snoring and Denies wheezing Gastrointestinal: Gastrointestinal: Denies abdominal pain, Denies heartburn, Reports nausea, Reports vomiting and Reports other ( Abdominal discomfort) Musculoskeletal: Musculoskeletal: Denies myalgias, Denies arthralgias and Denies joint swelling Integumentary/Breasts: Skin/Breast: Denies rash Neurologic: Denies memory loss and Denies seizure-like activity Psychiatric: Psychiatric: Denies abnormal sleep pattern, Denies anxiety and Denies memory loss Endocrine: Endocrine: Denies excessive sweating, Denies fatigue and Denies heat intolerance Hematologic/Lymphatic: Hematologic/Lymphatic: Denies easy bruising Allergic/Immunologic: Allergic/Immunologic: Denies itchy eyes, Denies seasonal rhinorrhea and Denies wheezing PMFSH Past Medical History Medical History (Updated 12/28/21 @ 16:20 by Elmer Kuhn MD) Diabetes Diabetic keto-acidosis Esophageal ulcer Gastroparesis Leukocytosis Social History Social History Household Members: None Housing: Apartment Do you presently have visiting nurse or other home services: No Alcohol intake: current Alcohol intake frequency: holidays/special occasions only Alcohol type: beer Patient Tobacco Use Status: Never used Tobacco Substance Use Type: Marijuana Substance Use Frequency: Daily Last Used Substance: Weeks (ago) Any prior treatment program specific to substance use: No Advance Directives: Yes Advance Directives on File: Yes Advance Directives Date on File: 01/22/21 service: No Current occupational status: employed Meds Allergies Allergy/AdvReac Type Severity Reaction Status Date / Time passion fruit [PASSION FRUIT] Allergy Unknown UNK Verified 12/26/21 13:10 Active Medications: Current Medications Dextrose (Dextrose 50 % 25 Gm/50 Ml Syringe) 25 gm IVPUSH Q30M PRN PRN Reason: BG < 70 Heparin Sodium (Porcine) (Heparin Sodium,Porcine 5,000 Unit/Ml Vial) 5,000 unit SUBCUT Q8H DESTINY Insulin Human Regular (Myxredlin) 100 unit in 100 mls @ 7 mls/hr IVCONT .[id number] [facility]; Protocol Last Admin: 12/28/21 14:49 Dose: 7 unit/hr, 7 mls/hr Documented by: Dextrose/Lactated Ringer's ([email or web address]) 1,000 mls @ 150 mls/hr IVCONT .[id number] [facility] Last Admin: 12/28/21 15:41 Dose: 150 mls/hr Documented by: Home Medications Medication Instructions Recorded Confirmed Last Taken Type insulin lispro 100 unit/mL 100 - 120 unit SUBCUT DAILY 12/28/21 Unknown History subcutaneous solution sertraline 25 mg tablet 1 tab PO DAILY 12/28/21 Unknown History Physical Exam Vital Signs: Vital Signs: Last Vital Signs Temp 98.5 F 12/28/21 11:52 Pulse 100 12/28/21 11:52 Resp 19 12/28/21 11:52 BP 160/104 H 12/28/21 11:52 Pulse Ox 100 12/28/21 11:52 BMI result Body Mass Index 25.8 Const: General: no acute distress and alert Nutritional Appearance: not obese Orientation/consciousness: Other orientation findings ( oriented) HEENT: Head: Yes atraumatic Mouth: no other ( thrush) Throat: No postnasal drainage Eyes: General: appearance normal, both eyes and all related structures Sclerae: sclerae normal EOM: EOMs intact bilaterally Neck: Neck: Yes supple Lymphatic: no lymphadenopathy noted Resp: Effort & Inspection: normal respiratory effort and no use of accessory muscles Auscultation: clear to auscultation bilaterally Cardio: Rate: tachycardic Rhythm: regular rhythm Heart sounds: no gallops, no murmurs and no rubs GI: Palpation (GI): Soft to palpation and Other GI palpation findings present ( nontender) Skin: General skin exam: other ( warm) Rashes: no rashes Extrem: General: No clubbing, No cyanosis and No edema Results Labs CBC and Chem 7: 12/28/21 11:10 12/28/21 11:10 Labs: Laboratory Results - last 24 hr 12/28/21 12/28/21 12/28/21 11:10 11:10 12:23 MCV 84.5 MCH 28.4 MCHC 33.7 RDW 11.9 Plt Count 336 MPV 9.6 Immature Gran % (Auto) 0.3 Neut % (Auto) 76.5 H Lymph % (Auto) 12.5 L Davis % (Auto) 10.5 Eos % (Auto) 0.0 Baso % (Auto) 0.2 Lymph # (Auto) 1.5 Davis # (Auto) 1.3 H Eos # (Auto) 0.0 Baso # (Auto) 0.0 Abs Immat Gran (auto) 0.04 H Absolute Neuts (auto) 9.3 H Absolute Nucleated RBC 0.000 Nucleated RBC % (auto) 0.0 PT 10.6 INR 0.9 APTT 30.3 VBG pH VBG pCO2 VBG pO2 VBG HCO3 VBG O2 Saturation VBG Base Excess Anion Gap 27 H Estim Creat Clear Calc 66.6 Estimated GFR 56 POC Glucose Random Glucose 331 H Calcium 9.2 Troponin I High Sens Lipase 14 Acetone, Qual Moderate H 12/28/21 12/28/21 12/28/21 12:23 12:31 13:48 MCV MCH MCHC RDW Plt Count MPV Immature Gran % (Auto) Neut % (Auto) Lymph % (Auto) Davis % (Auto) Eos % (Auto) Baso % (Auto) Lymph # (Auto) Davis # (Auto) Eos # (Auto) Baso # (Auto) Abs Immat Gran (auto) Absolute Neuts (auto) Absolute Nucleated RBC Nucleated RBC % (auto) PT INR APTT VBG pH 7.23 L VBG pCO2 37 VBG pO2 42 VBG HCO3 16 L VBG O2 Saturation 61.0 VBG Base Excess -10.2 Anion Gap Estim Creat Clear Calc Estimated GFR POC Glucose 173 H Random Glucose Calcium Troponin I High Sens 5.3 Lipase Acetone, Qual 12/28/21 15:54 MCV MCH MCHC RDW Plt Count MPV Immature Gran % (Auto) Neut % (Auto) Lymph % (Auto) Davis % (Auto) Eos % (Auto) Baso % (Auto) Lymph # (Auto) Davis # (Auto) Eos # (Auto) Baso # (Auto) Abs Immat Gran (auto) Absolute Neuts (auto) Absolute Nucleated RBC Nucleated RBC % (auto) PT INR APTT VBG pH VBG pCO2 VBG pO2 VBG HCO3 VBG O2 Saturation VBG Base Excess Anion Gap Estim Creat Clear Calc Estimated GFR POC Glucose 230 H Random Glucose Calcium Troponin I High Sens Lipase Acetone, Qual Assessment and Plan (1) Diabetic keto-acidosis: Qualifiers: Diabetes mellitus complication detail: without coma Diabetes mellitus type: type 1 Qualified Code(s): E10.10 - Type 1 diabetes mellitus with ket oacidosis without coma Status: Acute (2) Acute renal failure: Status: Acute Plan Assessment: 26-year-old gentleman with underlying history of diabetes mellitus and poor compliance with insulin regimen admitted with diabetic ketoacidosis now requiring insulin drip. Plan: Neuro: No acute issues. Cardiac: No acute issues. Pulmonary: No acute issues. Renal: Acute renal failure, likely secondary to diabetic ketoacidosis. Non oliguric. Continue with IV fluid support. Continue to monitor renal indices and urine output. Endo: Diabetic ketoacidosis secondary to poor compliance with outpatient insulin regimen. Continue to titrate off insulin drip as tolerated. GI: No acute issues. ID: No acute issues Heme/Onc: No acute issues. Psych: No acute issues. Miscellaneous: No acute issues. Prophylaxis: Heparin Diet: NPO
--- NOTE | 2021-12-28 16:21 | PHA.MEDREC ---
Pharmacy Consult ? Medication Reconciliation Pharmacy has completed the medication reconciliation. Patient just picked up sertraline yesterday but has not started it yet, states that he does not know how much lispro he takes but it has been 5-7 days since. Thanks Dilan
[2021-12-28 16:29] LABS: COVID-19 Test Negative (Negative); IDNOW Serial# 16C4AD1C
[2021-12-28] MEDS: Famotidine/PF 20 MG/2 ML VIAL IVPUSH (16:55)
[2021-12-28] MEDS: Heparin Sodium,Porcine 5,000 UNIT/ML VIAL 5000 UNIT SUBCUT ×2 (16:55→23:19)
[2021-12-28 16:59] LABS: Glucose, Whole Blood 199 mg/dL (60-115)
[2021-12-28 17:27] LABS: Anion Gap 18 (12-20); Blood Urea Nitrogen 16 mg/dL (9-16); Calcium 7.6 mg/dL (8.4-10.2); Carbon Dioxide 11 mmol/L (22-29); Chloride 108 mmol/L (96-108); Creatinine Clr Calc Pharmacy 88.6; Estimated Glomerular Filt Rate > 60; Glucose Random 221 mg/dL (60-115); Potassium 4.3 mmol/L (3.3-5.1); Sodium 133 mmol/L (135-145)
[2021-12-28 17:34] VITALS: BP 153/91; PULSE 93; RESP 16; TEMP 37; O2SAT 100
[2021-12-28 17:58] LABS: Glucose, Whole Blood 132 mg/dL (60-115)
--- NOTE | 2021-12-28 19:21 | PC.NURSE ---
Dixon MARQUEZ just check POCT BS and was 61. Insulin drip discontinued.
[2021-12-28 19:35] VITALS: BP 147/88; PULSE 91; RESP 13; TEMP 36.8; O2SAT 99
[2021-12-28] MEDS: Dextrose 50 % 25 GM/50 ML SYRINGE IVPUSH (19:40)
--- NOTE | 2021-12-28 19:53 | PC.NURSE ---
Report called to Angie MARQUEZ
[2021-12-28 20:30] VITALS: BP 131/79; PULSE 93; RESP 22; TEMP 37.1
[2021-12-28 21:01] VITALS: BMI 25.7
[2021-12-28 21:12] LABS: Glucose, Whole Blood 213 mg/dL (60-115)
[2021-12-28 22:00] VITALS: PULSE 95; TEMP 36.7
[2021-12-28 22:08] LABS: Glucose, Whole Blood 203 mg/dL (60-115)
[2021-12-28 22:25] LABS: Anion Gap 13 (12-20); Blood Urea Nitrogen 11 mg/dL (9-16); Calcium 7.4 mg/dL (8.4-10.2); Carbon Dioxide 16 mmol/L (22-29); Chloride 107 mmol/L (96-108); Creatinine Clr Calc Pharmacy 108.4; Estimated Glomerular Filt Rate > 60; Glucose Random 241 mg/dL (60-115); Potassium 3.7 mmol/L (3.3-5.1); Sodium 132 mmol/L (135-145)
[2021-12-28] MEDS: Potassium Chloride Packet 20 MEQ PACKET 40 MEQ PO (23:19)
[2021-12-28 23:28] LABS: Glucose, Whole Blood 131 mg/dL (60-115)
[2021-12-29] VITALS (7 sets, daily range): BP systolic 118–145; BP diastolic 55–93; PULSE 79–99; RESP 16–20; TEMP 36.1–37.1; O2SAT 98–100; BMI 25.7
[2021-12-29 00:24] LABS: Glucose, Whole Blood 89 mg/dL (60-115)
[2021-12-29] MEDS: Dextrose 50 % 25 GM/50 ML SYRINGE IVPUSH (00:28)
[2021-12-29 01:20] LABS: Glucose, Whole Blood 178 mg/dL (60-115)
[2021-12-29 02:12] LABS: Glucose, Whole Blood 215 mg/dL (60-115)
[2021-12-29 03:10] LABS: Glucose, Whole Blood 251 mg/dL (60-115)
[2021-12-29] MEDS: Dextrose 5 % and Lactated Ring 1,000 ML 150 ML IVCONT (03:14)
[2021-12-29 04:17] LABS: Glucose, Whole Blood 242 mg/dL (60-115)
[2021-12-29] MEDS: Morphine Sulfate 2 MG/ML CARTRIDGE 1 MG IVPUSH (04:54)
[2021-12-29 04:57] LABS: Appearance Urine CLEAR; Color Urine YELLOW; Glucose Urine UA 500 MG/DL (NEG); Leukocyte Esterase Urine NEG (NEG); Nitrite Urine NEG (NEG); Urine Blood NEG (NEG); Urine Ketones 40 MG/DL (NEG); Urine Protein NEG (NEG-TRACE)
[2021-12-29 05:13] LABS: Glucose, Whole Blood 226 mg/dL (60-115)
[2021-12-29 05:14] LABS: Amphetamine Screen Urine Not Detected (Not Detect); Barbiturates, Urine Not Detected (Not Detect); Benzodiazepines Screen Urine Not Detected (Not Detect); Cannabinoid Screen Urine POSITIVE (Not Detect); Cocaine Screen Urine Not Detected (Not Detect); Fentanyl, urine Not Detected (Not Detect); Opiate Screen Urine POSITIVE (Not Detect); Phencyclidine Screen Urine Not Detected (Not Detect)
[2021-12-29 05:21] LABS: Glucose, Whole Blood 61 mg/dL (60-115)
[2021-12-29 05:21] LABS: Glucose, Whole Blood 193 mg/dL (60-115)
[2021-12-29 05:21] LABS: Glucose, Whole Blood 87 mg/dL (60-115)
[2021-12-29 05:47] LABS: VBG Base Excess -2.4 mmol/L; VBG HCO3 21 mmol/L (22-26); VBG pCO2 32 mmHg; VBG pH 7.41 (7.32-7.43); VBG pO2 78 mmHg
[2021-12-29 05:48] LABS: Venous Blood Gas Refer to POC result
[2021-12-29 05:56] LABS: MANUAL DIFF FLAG NO
[2021-12-29 06:00] LABS: Glucose, Whole Blood 225 mg/dL (60-115)
[2021-12-29 06:02] LABS: Basophils Percent Auto 0.1 % (0-2); Eosinophils Percent Auto 0.3 % (0-4); Hemoglobin 13.2 g/dl (14.0-18.0); Imm Gran Abs Auto 0.02 X10*3/uL (0.00-0.03); Imm Gran Pct Auto 0.3 % (0.0-0.4); Lymphocytes Absolute Auto 1.2 X10*3/uL (1.2-4.9); Lymphocytes Percent Auto 16.3 % (20-40); Mean Corpuscular HGB Conc 34.7 g/dl (31.0-36.0); Mean Corpuscular Hemoglobin 28.6 pg (27.0-33.0); Mean Corpuscular Volume 82.4 fL (80.0-98.0); Mean Platelet Volume 9.9 fL (9.4-12.4); Monocytes Percent Auto 13.4 % (2-11); Neutrophils Absolute Auto 4.9 x10*3/uL (2.0-8.3); Neutrophils Percent Auto 69.6 % (45-73); Platelet Count 242 X10*3/uL (160-400); Red Blood Count 4.61 X10*6/uL (4.60-5.80); Red Cell Distribution Width 11.6 % (11.0-16.0); White Blood Count 7.1 X10*3/uL (4.8-10.8)
--- NOTE | 2021-12-29 06:27 | PC.NURSE ---
PT ARRIVED ON THE UNIT AT 8:30P ESCORTED BY ER NURSE. HE IS A/O X 4; NO SIGN OR SYMPTOM OF HYPER/HYPO GLYCEMIA UPON ARRIVAL. INSULIN DRIP NOT CURRENTLY RUNNING. PATIENT DENIED FURTHER NAUSEA BUT ENDORSED WEAKNESS. POC 213; INSULIN DRIP INITIATED AT 4U/HR AND TRACKED ON FLOW SHEET. DOSES TITRATED PER ORDERS FROM AMY CHAN. PATIENT REPORTED ONE EPISODE OF ABDOMINAL PAIN 02/14; WAS MEDICATED FOR IT WITH RELIEF VERBALIZED. PATIENT WAS ABLE TO EAT A LIGHT SNACK; NO BM AT THIS TIME WITH GOOD URINE OUT. U TOX POSITIVE FOR OPIATES AND MARIHUANA.
[2021-12-29 06:32] LABS: Alanine Aminotransferase 9 U/L (0-40); Alkaline Phosphatase 51 U/L (39-117); Anion Gap 9 (12-20); Aspartate Amino Transferase 16 U/L (5-37); Bilirubin Total 0.5 mg/dL (0.0-1.0); Blood Urea Nitrogen 7 mg/dL (9-16); Calcium 7.9 mg/dL (8.4-10.2); Carbon Dioxide 21 mmol/L (22-29); Chloride 106 mmol/L (96-108); Creatinine Clr Calc Pharmacy 111.9; Estimated Glomerular Filt Rate > 60; Glucose Random 250 mg/dL (60-115); Magnesium 1.9 mg/dL (1.6-2.6); Phosphorus 0.9 mg/dL (2.7-4.5); Potassium 4.4 mmol/L (3.3-5.1); Sodium 132 mmol/L (135-145); Total Protein 5.4 g/dL (6.5-8.0)
[2021-12-29] MEDS: Potassium Phosphate/NS 15 MMOL/250 ML PLAST..BAG 62.5 MMOL IV (06:46)
[2021-12-29 07:09] LABS: Glucose, Whole Blood 199 mg/dL (60-115)
[2021-12-29 08:06] LABS: Glucose, Whole Blood 189 mg/dL (60-115)
[2021-12-29] MEDS: Heparin Sodium,Porcine 5,000 UNIT/ML VIAL 5000 UNIT SUBCUT ×3 (08:15→23:45)
[2021-12-29] MEDS: Insulin Glargine,Hum.rec.anlog 100 UNIT/ML 10 ML VIAL 60 UNIT SUBCUT (08:15)
--- NOTE | 2021-12-29 09:42 | P.CDIC_ITS ---
CDI Concurrent Query Documentation Clarification: PHYSICIAN'S DOCUMENTATION REQUEST Date of Query: 12/29/21 0943 Patient Name: Rodrigo Howe Admit Date: 12/28/21 Dear Doctor, A review of the medical record indicates additional documentation may be needed. Please review below and update the documentation accordingly. Clinical Indicators: Is there a diagnosis that correlates with these lab findings: Risk Factors/Clinical Indicators/Treatments LABS: potassium 128 L potassium replenished Patient vomiting, nausea, diarrhea, dehydrated. Please indicate in your progress notes if you are in agreement that the above diagnosis is valid for this patient: Hypokalemia or other etiology of lab findings * Yes, [ ] is a valid diagnosis for this patient * No, [ ] is a not a valid diagnosis for this patient * Other (please specify) * Unable to determine Use of terms such as suspected, likely, concern for, or probable (associated with a specific diagnosis that is being evaluated, monitored, or treated as if it exists) are acceptable and can be coded in the inpatient setting, when documented at the time of discharge. Thank you, Steffanie Shin [facility], CDIS Extension:[phone] Please use your independent medical judgment in providing your response. THIS QUERY IS PART OF THE PERMANENT MEDICAL RECORD Provider Response: Other (Hypokalemia) Other Diagnosis: Hypokalemia
[2021-12-29 11:17] LABS: Glucose, Whole Blood 158 mg/dL (60-115)
--- NOTE | 2021-12-29 11:52 | P.PNCC_ITS ---
Subjective Subjective Date of Service: 12/29/21 Interval History: 26-year-old gentleman with underlying diabetes mellitus and poor compliance with insulin regimen admitted on 12/28/2021 with complaints of nausea and vomiting secondary to diabetic ketoacidosis. On ER evaluation patient was noted to have metabolic acidosis secondary to diabetic ketoacidosis, he has been started on IV insulin drip and IV fluids and admitted to intensive care unit. No events overnight. Titrated off insulin drip. Critical Care Time (minutes): 0 Physical Exam Vital Signs: Vital Signs: Last Vital Signs Temp 98.7 F 12/29/21 08:00 Pulse 79 12/29/21 08:00 Resp 16 12/29/21 08:00 BP 125/74 12/29/21 08:00 Pulse Ox 98 12/29/21 08:00 BMI result Body Mass Index 25.7 Const: General: no acute distress, alert and awake Eyes: Sclerae: sclerae normal EOM: EOMs intact bilaterally Neck: Neck: Yes no lymphadenopathy, Yes trachea midline and Yes supple Resp: Effort & Inspection: normal respiratory effort and no respiratory distress Auscultation: clear to auscultation bilaterally Cardio: Rate: regular rate Rhythm: regular rhythm Heart sounds: no gallops, no murmurs and no rubs GI: Palpation (GI): Soft to palpation and Other GI palpation findings present ( Nontender) Auscultation: normal bowel sounds Extrem: General: Yes no pedal edema, No clubbing and No cyanosis Objective Data Labs CBC & Chem 7: 12/29/21 05:36 12/29/21 05:36 Labs: Laboratory Results - last 24 hr 12/28/21 12/28/21 12/28/21 11:10 12:23 12:23 WBC RBC Hgb Hct MCV MCH MCHC RDW Plt Count MPV Immature Gran % (Auto) Neut % (Auto) Lymph % (Auto) [place] % (Auto) Eos % (Auto) Baso % (Auto) Lymph # (Auto) [place] # (Auto) Eos # (Auto) Baso # (Auto) Abs Immat Gran (auto) Absolute Neuts (auto) Absolute Nucleated RBC Nucleated RBC % (auto) PT 10.6 INR 0.9 APTT 30.3 VBG pH VBG pCO2 VBG pO2 VBG HCO3 VBG O2 Saturation VBG Base Excess Sodium Potassium Chloride Carbon Dioxide Anion Gap BUN Creatinine Estim Creat Clear Calc Estimated GFR POC Glucose Random Glucose Calcium Phosphorus Magnesium Total Bilirubin AST ALT Alkaline Phosphatase Troponin I High Sens 5.3 Total Protein Albumin Lipase 14 Urine Color Urine Appearance Urine pH Ur Specific [place] Urine Protein Urine Glucose (UA) Urine Ketones Urine Blood Urine Nitrite Ur Leukocyte Esterase Urine Opiates Screen Urine Fentanyl Screen Ur Barbiturates Screen Ur Phencyclidine Scrn Ur Amphetamines Screen U Benzodiazepines Scrn Urine Cocaine Screen U Marijuana (THC) Screen Acetone, Qual Moderate H COVID-19 (EARLINE) COVID-19 Local Labs 12/28/21 12/28/21 12/28/21 12:31 13:48 15:54 WBC RBC Hgb Hct MCV MCH MCHC RDW Plt Count MPV Immature Gran % (Auto) Neut % (Auto) Lymph % (Auto) [place] % (Auto) Eos % (Auto) Baso % (Auto) Lymph # (Auto) [place] # (Auto) Eos # (Auto) Baso # (Auto) Abs Immat Gran (auto) Absolute Neuts (auto) Absolute Nucleated RBC Nucleated RBC % (auto) PT INR APTT VBG pH 7.23 L VBG pCO2 37 VBG pO2 42 VBG HCO3 16 L VBG O2 Saturation 61.0 VBG Base Excess -10.2 Sodium Potassium Chloride Carbon Dioxide Anion Gap BUN Creatinine Estim Creat Clear Calc Estimated GFR POC Glucose 173 H 230 H Random Glucose Calcium Phosphorus Magnesium Total Bilirubin AST ALT Alkaline Phosphatase Troponin I High Sens Total Protein Albumin Lipase Urine Color Urine Appearance Urine pH Ur Specific [place] Urine Protein Urine Glucose (UA) Urine Ketones Urine Blood Urine Nitrite Ur Leukocyte Esterase Urine Opiates Screen Urine Fentanyl Screen Ur Barbiturates Screen Ur Phencyclidine Scrn Ur Amphetamines Screen U Benzodiazepines Scrn Urine Cocaine Screen U Marijuana (THC) Screen Acetone, Qual COVID-19 (EARLINE) COVID-FIMBex 12/28/21 12/28/21 12/28/21 16:05 16:44 16:53 WBC RBC Hgb Hct MCV MCH MCHC RDW Plt Count MPV Immature Gran % (Auto) Neut % (Auto) Lymph % (Auto) [place] % (Auto) Eos % (Auto) Baso % (Auto) Lymph # (Auto) [place] # (Auto) Eos # (Auto) Baso # (Auto) Abs Immat Gran (auto) Absolute Neuts (auto) Absolute Nucleated RBC Nucleated RBC % (auto) PT INR APTT VBG pH VBG pCO2 VBG pO2 VBG HCO3 VBG O2 Saturation VBG Base Excess Sodium 133 L Potassium 4.3 Chloride 108 Carbon Dioxide 11 L Anion Gap 18 BUN 16 Creatinine 1.15 Estim Creat Clear Calc 88.6 Estimated GFR > 60 POC Glucose 199 H Random Glucose 221 H Calcium 7.6 L D Phosphorus Magnesium Total Bilirubin AST ALT Alkaline Phosphatase Troponin I High Sens Total Protein Albumin Lipase Urine Color Urine Appearance Urine pH Ur Specific [place] Urine Protein Urine Glucose (UA) Urine Ketones Urine Blood Urine Nitrite Ur Leukocyte Esterase Urine Opiates Screen Urine Fentanyl Screen Ur Barbiturates Screen Ur Phencyclidine Scrn Ur Amphetamines Screen U Benzodiazepines Scrn Urine Cocaine Screen U Marijuana (THC) Screen Acetone, Qual COVID-19 (EARLINE) Negative COVID-19 Local Labs See Note 12/28/21 12/28/21 12/28/21 17:53 18:49 19:19 WBC RBC Hgb Hct MCV MCH MCHC RDW Plt Count MPV Immature Gran % (Auto) Neut % (Auto) Lymph % (Auto) [place] % (Auto) Eos % (Auto) Baso % (Auto) Lymph # (Auto) [place] # (Auto) Eos # (Auto) Baso # (Auto) Abs Immat Gran (auto) Absolute Neuts (auto) Absolute Nucleated RBC Nucleated RBC % (auto) PT INR APTT VBG pH VBG pCO2 VBG pO2 VBG HCO3 VBG O2 Saturation VBG Base Excess Sodium Potassium Chloride Carbon Dioxide Anion Gap BUN Creatinine Estim Creat Clear Calc Estimated GFR POC Glucose 132 H 87 61 Random Glucose Calcium Phosphorus Magnesium Total Bilirubin AST ALT Alkaline Phosphatase Troponin I High Sens Total Protein Albumin Lipase Urine Color Urine Appearance Urine pH Ur Specific [place] Urine Protein Urine Glucose (UA) Urine Ketones Urine Blood Urine Nitrite Ur Leukocyte Esterase Urine Opiates Screen Urine Fentanyl Screen Ur Barbiturates Screen Ur Phencyclidine Scrn Ur Amphetamines Screen U Benzodiazepines Scrn Urine Cocaine Screen U Marijuana (THC) Screen Acetone, Qual COVID-19 (EARLINE) COVID-19 Local Labs 12/28/21 12/28/21 12/28/21 20:08 21:09 22:03 WBC RBC Hgb Hct MCV MCH MCHC RDW Plt Count MPV Immature Gran % (Auto) Neut % (Auto) Lymph % (Auto) [place] % (Auto) Eos % (Auto) Baso % (Auto) Lymph # (Auto) [place] # (Auto) Eos # (Auto) Baso # (Auto) Abs Immat Gran (auto) Absolute Neuts (auto) Absolute Nucleated RBC Nucleated RBC % (auto) PT INR APTT VBG pH VBG pCO2 VBG pO2 VBG HCO3 VBG O2 Saturation VBG Base Excess Sodium 132 L Potassium 3.7 Chloride 107 Carbon Dioxide 16 L Anion Gap 13 BUN 11 Creatinine 0.94 Estim Creat Clear Calc 108.4 Estimated GFR > 60 POC Glucose 193 H 213 H Random Glucose 241 H Calcium 7.4 L Phosphorus Magnesium Total Bilirubin AST ALT Alkaline Phosphatase Troponin I High Sens Total Protein Albumin Lipase Urine Color Urine Appearance Urine pH Ur Specific [place] Urine Protein Urine Glucose (UA) Urine Ketones Urine Blood Urine Nitrite Ur Leukocyte Esterase Urine Opiates Screen Urine Fentanyl Screen Ur Barbiturates Screen Ur Phencyclidine Scrn Ur Amphetamines Screen U Benzodiazepines Scrn Urine Cocaine Screen U Marijuana (THC) Screen Acetone, Qual COVID-19 (EARLINE) COVID-19 [employer] [facility] 12/28/21 12/28/21 12/29/21 22:04 23:22 00:20 WBC RBC Hgb Hct MCV MCH MCHC RDW Plt Count MPV Immature Gran % (Auto) Neut % (Auto) Lymph % (Auto) [place] % (Auto) Eos % (Auto) Baso % (Auto) Lymph # (Auto) [place] # (Auto) Eos # (Auto) Baso # (Auto) Abs Immat Gran (auto) Absolute Neuts (auto) Absolute Nucleated RBC Nucleated RBC % (auto) PT INR APTT VBG pH VBG pCO2 VBG pO2 VBG HCO3 VBG O2 Saturation VBG Base Excess Sodium Potassium Chloride Carbon Dioxide Anion Gap BUN Creatinine Estim Creat Clear Calc Estimated GFR POC Glucose 203 H 131 H 89 Random Glucose Calcium Phosphorus Magnesium Total Bilirubin AST ALT Alkaline Phosphatase Troponin I High Sens Total Protein Albumin Lipase Urine Color Urine Appearance Urine pH Ur Specific [place] Urine Protein Urine Glucose (UA) Urine Ketones Urine Blood Urine Nitrite Ur Leukocyte Esterase Urine Opiates Screen Urine Fentanyl Screen Ur Barbiturates Screen Ur Phencyclidine Scrn Ur Amphetamines Screen U Benzodiazepines Scrn Urine Cocaine Screen U Marijuana (THC) Screen Acetone, Qual COVID-19 (EARLINE) COVID-19 [employer] 12/29/21 12/29/21 12/29/21 01:15 02:00 02:00 WBC RBC Hgb Hct MCV MCH MCHC RDW Plt Count MPV Immature Gran % (Auto) Neut % (Auto) Lymph % (Auto) [place] % (Auto) Eos % (Auto) Baso % (Auto) Lymph # (Auto) [place] # (Auto) Eos # (Auto) Baso # (Auto) Abs Immat Gran (auto) Absolute Neuts (auto) Absolute Nucleated RBC Nucleated RBC % (auto) PT INR APTT VBG pH VBG pCO2 VBG pO2 VBG HCO3 VBG O2 Saturation VBG Base Excess Sodium Potassium Chloride Carbon Dioxide Anion Gap BUN Creatinine Estim Creat Clear Calc Estimated GFR POC Glucose 178 H Random Glucose Calcium Phosphorus Magnesium Total Bilirubin AST ALT Alkaline Phosphatase Troponin I High Sens Total Protein Albumin Lipase Urine Color YELLOW Urine Appearance CLEAR Urine pH 6.0 Ur Specific [place] 1.020 Urine Protein NEG Urine Glucose (UA) 500 H Urine Ketones 40 Urine Blood NEG Urine Nitrite NEG Ur Leukocyte Esterase NEG Urine Opiates Screen POSITIVE H Urine Fentanyl Screen Not Detected Ur Barbiturates Screen Not Detected Ur Phencyclidine Scrn Not Detected Ur Amphetamines Screen Not Detected U Benzodiazepines Scrn Not Detected Urine Cocaine Screen Not Detected U Marijuana (THC) Screen POSITIVE H Acetone, Qual COVID-19 (EARLINE) COVID-19 Clin Com 12/29/21 12/29/21 12/29/21 02:07 03:04 04:08 WBC RBC Hgb Hct MCV MCH MCHC RDW Plt Count MPV Immature Gran % (Auto) Neut % (Auto) Lymph % (Auto) [place] % (Auto) Eos % (Auto) Baso % (Auto) Lymph # (Auto) [place] # (Auto) Eos # (Auto) Baso # (Auto) Abs Immat Gran (auto) Absolute Neuts (auto) Absolute Nucleated RBC Nucleated RBC % (auto) PT INR APTT VBG pH VBG pCO2 VBG pO2 VBG HCO3 VBG O2 Saturation VBG Base Excess Sodium Potassium Chloride Carbon Dioxide Anion Gap BUN Creatinine Estim Creat Clear Calc Estimated GFR POC Glucose 215 H 251 H 242 H Random Glucose Calcium Phosphorus Magnesium Total Bilirubin AST ALT Alkaline Phosphatase Troponin I High Sens Total Protein Albumin Lipase Urine Color Urine Appearance Urine pH Ur Specific [place] Urine Protein Urine Glucose (UA) Urine Ketones Urine Blood Urine Nitrite Ur Leukocyte Esterase Urine Opiates Screen Urine Fentanyl Screen Ur Barbiturates Screen Ur Phencyclidine Scrn Ur Amphetamines Screen U Benzodiazepines Scrn Urine Cocaine Screen U Marijuana (THC) Screen Acetone, Qual COVID-19 (EARLINE) COVID-19 [employer] 12/29/21 12/29/21 12/29/21 05:08 05:36 05:36 WBC 7.1 RBC 4.61 Hgb 13.2 L Hct 38.0 L D MCV 82.4 MCH 28.6 MCHC 34.7 RDW 11.6 Plt Count 242 D MPV 9.9 Immature Gran % (Auto) 0.3 Neut % (Auto) 69.6 Lymph % (Auto) 16.3 L [place] % (Auto) 13.4 H Eos % (Auto) 0.3 Baso % (Auto) 0.1 Lymph # (Auto) 1.2 [place] # (Auto) 1.0 Eos # (Auto) 0.0 Baso # (Auto) 0.0 Abs Immat Gran (auto) 0.02 Absolute Neuts (auto) 4.9 Absolute Nucleated RBC 0.000 Nucleated RBC % (auto) 0.0 PT INR APTT VBG pH VBG pCO2 VBG pO2 VBG HCO3 VBG O2 Saturation VBG Base Excess Sodium 132 L Potassium 4.4 Chloride 106 Carbon Dioxide 21 L Anion Gap 9 L BUN 7 L Creatinine 0.91 Estim Creat Clear Calc 111.9 Estimated GFR > 60 POC Glucose 226 H Random Glucose 250 H Calcium 7.9 L D Phosphorus 0.9 L* Magnesium 1.9 Total Bilirubin 0.5 AST 16 ALT 9 Alkaline Phosphatase 51 D Troponin I High Sens Total Protein 5.4 L D Albumin 3.0 L D Lipase Urine Color Urine Appearance Urine pH Ur Specific [place] Urine Protein Urine Glucose (UA) Urine Ketones Urine Blood Urine Nitrite Ur Leukocyte Esterase Urine Opiates Screen Urine Fentanyl Screen Ur Barbiturates Screen Ur Phencyclidine Scrn Ur Amphetamines Screen U Benzodiazepines Scrn Urine Cocaine Screen U Marijuana (THC) Screen Acetone, Qual COVID-19 (EARLINE) COVID-19 Clin Com 12/29/21 12/29/21 12/29/21 05:39 05:56 07:05 WBC RBC Hgb Hct MCV MCH MCHC RDW Plt Count MPV Immature Gran % (Auto) Neut % (Auto) Lymph % (Auto) [place] % (Auto) Eos % (Auto) Baso % (Auto) Lymph # (Auto) [place] # (Auto) Eos # (Auto) Baso # (Auto) Abs Immat Gran (auto) Absolute Neuts (auto) Absolute Nucleated RBC Nucleated RBC % (auto) PT INR APTT VBG pH 7.41 VBG pCO2 32 VBG pO2 78 VBG HCO3 21 L VBG O2 Saturation 96.0 VBG Base Excess -2.4 Sodium Potassium Chloride Carbon Dioxide Anion Gap BUN Creatinine Estim Creat Clear Calc Estimated GFR POC Glucose 225 H 199 H Random Glucose Calcium Phosphorus Magnesium Total Bilirubin AST ALT Alkaline Phosphatase Troponin I High Sens Total Protein Albumin Lipase Urine Color Urine Appearance Urine pH Ur Specific [place] Urine Protein Urine Glucose (UA) Urine Ketones Urine Blood Urine Nitrite Ur Leukocyte Esterase Urine Opiates Screen Urine Fentanyl Screen Ur Barbiturates Screen Ur Phencyclidine Scrn Ur Amphetamines Screen U Benzodiazepines Scrn Urine Cocaine Screen U Marijuana (THC) Screen Acetone, Qual COVID-19 (EARLINE) COVID-19 Local Labs 12/29/21 12/29/21 08:03 11:13 WBC RBC Hgb Hct MCV MCH MCHC RDW Plt Count MPV Immature Gran % (Auto) Neut % (Auto) Lymph % (Auto) [place] % (Auto) Eos % (Auto) Baso % (Auto) Lymph # (Auto) [place] # (Auto) Eos # (Auto) Baso # (Auto) Abs Immat Gran (auto) Absolute Neuts (auto) Absolute Nucleated RBC Nucleated RBC % (auto) PT INR APTT VBG pH VBG pCO2 VBG pO2 VBG HCO3 VBG O2 Saturation VBG Base Excess Sodium Potassium Chloride Carbon Dioxide Anion Gap BUN Creatinine Estim Creat Clear Calc Estimated GFR POC Glucose 189 H 158 H Random Glucose Calcium Phosphorus Magnesium Total Bilirubin AST ALT Alkaline Phosphatase Troponin I High Sens Total Protein Albumin Lipase Urine Color Urine Appearance Urine pH Ur Specific [place] Urine Protein Urine Glucose (UA) Urine Ketones Urine Blood Urine Nitrite Ur Leukocyte Esterase Urine Opiates Screen Urine Fentanyl Screen Ur Barbiturates Screen Ur Phencyclidine Scrn Ur Amphetamines Screen U Benzodiazepines Scrn Urine Cocaine Screen U Marijuana (THC) Screen Acetone, Qual COVID-19 (EARLINE) COVID-19 Local Labs Progress Note: A&P Assessment and plan (1) Acute renal failure: Status: Acute (2) Diabetic keto-acidosis: Status: Acute Plan Assessment: 26-year-old gentleman with underlying history of diabetes mellitus and poor compliance with insulin regimen admitted with diabetic ketoacidosis now requiring insulin drip. Plan: Neuro: No acute issues. Cardiac: No acute issues. Pulmonary: No acute issues. Renal: Acute renal failure, likely secondary to diabetic ketoacidosis, resolved Non oliguric. Continue to monitor renal indices and urine output. Endo: Diabetic ketoacidosis secondary to poor compliance with outpatient insulin regimen, resolved. Titrated off insulin drip. Continue on subcutaneous insulin protocol. GI: No acute issues. ID: No acute issues Heme/Onc: No acute issues. Psych: No acute issues. Miscellaneous: No acute issues. Prophylaxis: Heparin Diet: Diabetic Quality Stroke Does the patient have a stroke diagnosis?: No VTE Prior VTE?: No VTE Risk Level:: Medical - moderate - high VTE Device Contraindication: Treatment Not Indicated VTE Drug Contraindication: N/A - Med Ordered
[2021-12-29] MEDS: Insulin Lispro 100 UNIT/ML 3 ML VIAL SUBCUT (12:07)
[2021-12-29 13:06] LABS: Anion Gap 11 (12-20); Blood Urea Nitrogen 5 mg/dL (9-16); Calcium 8.4 mg/dL (8.4-10.2); Carbon Dioxide 25 mmol/L (22-29); Chloride 104 mmol/L (96-108); Creatinine Clr Calc Pharmacy 124.2; Estimated Glomerular Filt Rate > 60; Glucose Random 155 mg/dL (60-115); Potassium 3.5 mmol/L (3.3-5.1); Sodium 136 mmol/L (135-145)
--- NOTE | 2021-12-29 13:08 | MHC.CM.PN ---
PATIENT IS FULLY INDEPENDENT WITH ALL ADLS. NO DME OR [facility] SERVICES HCP IS ON FILE AND VERIFIED. MOM/HCP IS IN ROOM AND CONVERSATION WAS HAD WITH PATIENT'S PERMISSION. PATIENT EXPECTS TO DC HOME WITH NO SERVICES. MOM WILL TRANSPORT.
--- NOTE | 2021-12-29 15:04 | PM.EVENT ---
Event Note Date of Service: 12/29/21 Event Note: 26-year-old gentleman with underlying diabetes mellitus and poor compliance with insulin regimen admitted on 12/28/2021 with complaints of nausea and vomiting secondary to diabetic ketoacidosis.? On ER evaluation patient was noted to have metabolic acidosis secondary to diabetic ketoacidosis, he has been started on IV insulin drip and IV fluids and admitted to intensive care unit. Tx from ICU DKA noncompliant Off insulin drip continue SS, ADA diet lantus GISSELLE secondary to DKA resolved Hyponatremia secondary to DKA, volume depletion resolved
[2021-12-29 16:47] LABS: Glucose, Whole Blood 90 mg/dL (60-115)
[2021-12-29 20:17] LABS: Glucose, Whole Blood 77 mg/dL (60-115)
[2021-12-30 03:11] VITALS: BP 142/66; PULSE 68; RESP 20; TEMP 37.2; O2SAT 98
[2021-12-30 03:18] LABS: Glucose, Whole Blood 155 mg/dL (60-115)
[2021-12-30 06:18] LABS: MANUAL DIFF FLAG NO
[2021-12-30 06:41] LABS: Basophils Percent Auto 0.3 % (0-2); Eosinophils Absolute Auto 0.1 X10*3/uL (0.0-0.4); Eosinophils Percent Auto 1.1 % (0-4); Hematocrit 38.9 % (42.0-52.0); Hemoglobin 13.5 g/dl (14.0-18.0); Imm Gran Abs Auto 0.01 X10*3/uL (0.00-0.03); Imm Gran Pct Auto 0.2 % (0.0-0.4); Lymphocytes Absolute Auto 2.3 X10*3/uL (1.2-4.9); Lymphocytes Percent Auto 35.4 % (20-40); Mean Corpuscular HGB Conc 34.7 g/dl (31.0-36.0); Mean Corpuscular Hemoglobin 28.6 pg (27.0-33.0); Mean Corpuscular Volume 82.4 fL (80.0-98.0); Mean Platelet Volume 9.7 fL (9.4-12.4); Monocytes Percent Auto 15.6 % (2-11); Neutrophils Absolute Auto 3.1 x10*3/uL (2.0-8.3); Neutrophils Percent Auto 47.4 % (45-73); Platelet Count 255 X10*3/uL (160-400); Red Blood Count 4.72 X10*6/uL (4.60-5.80); Red Cell Distribution Width 11.7 % (11.0-16.0); White Blood Count 6.4 X10*3/uL (4.8-10.8)
[2021-12-30 06:43] LABS: Anion Gap 7 (12-20); Blood Urea Nitrogen 5 mg/dL (9-16); Calcium 8.6 mg/dL (8.4-10.2); Carbon Dioxide 30 mmol/L (22-29); Chloride 104 mmol/L (96-108); Creatinine Clr Calc Pharmacy 135.8; Estimated Glomerular Filt Rate > 60; Glucose Random 75 mg/dL (60-115); Phosphorus 2.8 mg/dL (2.7-4.5); Sodium 138 mmol/L (135-145)
[2021-12-30 07:18] VITALS: BP 125/73; PULSE 78; RESP 17; TEMP 36.9; O2SAT 100
[2021-12-30 07:37] LABS: Glucose, Whole Blood 65 mg/dL (60-115)
[2021-12-30] MEDS: Heparin Sodium,Porcine 5,000 UNIT/ML VIAL 5000 UNIT SUBCUT (10:44)
[2021-12-30 11:23] LABS: Glucose, Whole Blood 188 mg/dL (60-115)
[2021-12-30 11:44] VITALS: BP 149/86; PULSE 72; RESP 20; TEMP 36.7; O2SAT 100
[2021-12-30] MEDS: Potassium Chloride Packet 20 MEQ PACKET 40 MEQ PO ×2 (12:20→15:05)
[2021-12-30] MEDS: Insulin Lispro 100 UNIT/ML 3 ML VIAL SUBCUT (12:20)
--- NOTE | 2021-12-30 14:50 | P.DS_ITS ---
DS: Providers Provider Date of Service: 12/30/21 Date of admission: 12/28/21 16:14 Primary care physician: Papi Olivo MD DS: Diagnosis Discharge Diagnosis (1) Diabetic keto-acidosis: Status: Acute (2) Acute renal failure: Status: Acute DS: Summary Hospital Course Hospital Course: HPI ?26-year-old gentleman with underlying diabetes mellitus and poor compliance with insulin regimen admitted on 12/28/2021 with complaints of nausea and vomiting secondary to diabetic ketoacidosis.? On ER evaluation patient was noted to have metabolic acidosis secondary to diabetic ketoacidosis, he has been started on IV insulin drip and IV fluids and admitted to intensive care unit. Hospital Course: patient was admitted to ICU for DKA + GISSELLE. He was treated with IVF and insulin gtt. Once resolved, he was trasnsitioned to subcut. insulin (basal+bolus in the hospital was used). His electrolytes including hypoK and hypophos were repleted as needed. Cause for DKA was due to non-compliance with his insulin (pt reported he had not taken it for 5 days). He is in the process of transitioning to an insulin pump -- but will be using 70/30 in the mean time 60 units BID. Furthermore, he endorses depression (but no SI) and anxiety as the cause of his non-compliance. He reports he has recently been prescribed (in the last week or so) sertraline and will be starting that upon discharge. He declined any further resources for his mental health while in the hospital. Time Spent with Patient Time attestation: Total time spent providing and/or coordinating discharge services: Discharge coordination time: Greater than 30 minutes Quality: Safe Use of Opioids Does Pt have an Active Cancer Diagnosis on the Problem List?: No Quality: Stroke Does the patient have a stroke diagnosis?: No Physical Exam Vital Signs: Vital Signs: Last Vital Signs Temp 98.1 F 12/30/21 11:44 Pulse 72 12/30/21 11:44 Resp 20 12/30/21 11:44 BP 149/86 H 12/30/21 11:44 Pulse Ox 100 12/30/21 11:44 BMI result Body Mass Index 25.7 Const: Other: General - no acute distress, appears comfortable Cardiovascular - regular rate and rhythm, S1-S2 Lungs - normal respiratory effort, clear to auscultation bilaterally, no wheezing Abdomen - soft, nontender, no rebound or guarding Extremities - no edema bilaterally Neuro - awake and alert, no focal deficits DS: Data Data Completed and Pending Completed studies during hospitalization [Text1]: Procedures Excision of Stomach, Pylorus, Via Natural or Artificial Opening Endoscopic, Diagnostic (06/22/21) Labs on day of discharge: Laboratory Results - last 24 hr 12/29/21 12/29/21 12/30/21 16:43 20:13 03:14 WBC RBC Hgb Hct MCV MCH MCHC RDW Plt Count MPV Immature Gran % (Auto) Neut % (Auto) Lymph % (Auto) [place] % (Auto) Eos % (Auto) Baso % (Auto) Lymph # (Auto) [place] # (Auto) Eos # (Auto) Baso # (Auto) Abs Immat Gran (auto) Absolute Neuts (auto) Absolute Nucleated RBC Nucleated RBC % (auto) Sodium Potassium Chloride Carbon Dioxide Anion Gap BUN Creatinine Estim Creat Clear Calc Estimated GFR POC Glucose 90 77 155 H Random Glucose Calcium Phosphorus Magnesium 12/30/21 12/30/21 12/30/21 06:13 06:13 07:33 WBC 6.4 RBC 4.72 Hgb 13.5 L Hct 38.9 L MCV 82.4 MCH 28.6 MCHC 34.7 RDW 11.7 Plt Count 255 MPV 9.7 Immature Gran % (Auto) 0.2 Neut % (Auto) 47.4 Lymph % (Auto) 35.4 [place] % (Auto) 15.6 H Eos % (Auto) 1.1 Baso % (Auto) 0.3 Lymph # (Auto) 2.3 [place] # (Auto) 1.0 Eos # (Auto) 0.1 Baso # (Auto) 0.0 Abs Immat Gran (auto) 0.01 Absolute Neuts (auto) 3.1 Absolute Nucleated RBC 0.000 Nucleated RBC % (auto) 0.0 Sodium 138 Potassium 3.0 L Chloride 104 Carbon Dioxide 30 H Anion Gap 7 L BUN 5 L Creatinine 0.75 Estim Creat Clear Calc 135.8 Estimated GFR > 60 POC Glucose 65 Random Glucose 75 D Calcium 8.6 Phosphorus 2.8 Magnesium 2.0 12/30/21 11:10 WBC RBC Hgb Hct MCV MCH MCHC RDW Plt Count MPV Immature Gran % (Auto) Neut % (Auto) Lymph % (Auto) [place] % (Auto) Eos % (Auto) Baso % (Auto) Lymph # (Auto) [place] # (Auto) Eos # (Auto) Baso # (Auto) Abs Immat Gran (auto) Absolute Neuts (auto) Absolute Nucleated RBC Nucleated RBC % (auto) Sodium Potassium Chloride Carbon Dioxide Anion Gap BUN Creatinine Estim Creat Clear Calc Estimated GFR POC Glucose 188 H Random Glucose Calcium Phosphorus Magnesium Discharge Plan Discharge Patient Disposition: Home, Self-Care Discharge Diagnosis: DKA, GISSELLE Referrals: Papi Olivo MD [Primary Care Provider] - 1 Week Discharge Medications: Continued ondansetron HCl 4 mg tablet 4 mg PO Q6H PRN (Reason: nausea and vomiting) Qty: 10 0RF sertraline 25 mg tablet 1 tab PO DAILY 0RF Novolin 70-30 FlexPen U-100 100 unit/mL (70-30) insulin pen 60 unit subcut BID 0RF Discontinued insulin lispro 100 unit/mL solution 100 - 120 unit subcut DAILY 0RF Rx Instructions: via pump Discharge Orders: Discharge Order (Routine); Ordered 12/30/21 Ordered By: Derek Gonzalez Diet: diabetic diet Activity on Discharge: As tolerated Stand Alone Forms: Patient Portal Discharge page Care Plan Goals: To stay healthy and out of the hospital. Health Concerns: DKA Plan of Treatment: Take your 70/30 insulin as you have been prescribed. Follow up with your diabetes doctors. Assessment: see d/c summary
--- NOTE | 2021-12-30 14:56 | MHC.CM.PN ---
Patient has been medically cleared for dc to home today, self care.
== END 2021-12-30 15:23 | disposition home or self-care (01) | DRG 420 ==
LOC: HO.ED 12:17 → HO.EDOVER 16:33 → HO.ICU 20:38 → HO.IMC 12-29 14:10
PROVIDERS: Nurse Practitioner Acute Care; Physician Assistant; Admitting Provider Internal Medicine Pulmonary Disease; Emergency Provider Emergency Medicine; PCP Internal Medicine; Visit Provider Family Medicine
DX: E10.10 Type 1 diabetes mellitus with ketoacidosis without coma (principal); N17.9 Acute kidney failure, unspecified; E87.6 Hypokalemia; E86.0 Dehydration; Z20.822 Contact with and (suspected) exposure to COVID-19; Z91.14 Patient's other noncompliance with medication regimen; Z79.4 Long term (current) use of insulin; Z79.899 Other long term (current) drug therapy
CPT/HCPCS: 36415; 80048; 80053; 80307; 81003; 82009; 82803; 82947; 83690; 83735; 84100; 84484; 85025; 85610; 85730; 87635; 93005; 96361; 96365; 96375; 99285; 99291; J2270

== ENCOUNTER 2022-01-17 08:44 | Emergency (ER) | payer OTHER, SELFPAY ==
[2022-01-17 09:01] VITALS: BP 166/98; PULSE 115; RESP 18; TEMP 37.2; O2SAT 97; BMI 26.6
[2022-01-17 09:11] LABS: Glucose, Whole Blood 523 mg/dL (60-115)
--- NOTE | 2022-01-17 09:22 | ED_ITS ---
HPI - Nausea/Vomiting/Diarrhea General Chief complaint: Nausea/Vomiting/Diarrhea Stated complaint: ?dehydration Time Seen by Provider: 01/17/22 09:20 Source: patient Mode of arrival: ambulatory Limitations: no limitations History of Present Illness HPI Narrative: 26-year-old gentleman with underlying insulin-dependent diabetes seemingly with poor compliance with insulin regimen, patient was invited into awaiting 2 days ago thought that he ate a bad food causing nausea and vomiting and nonbloody watery diarrhea for the past 2 days. Patient had similar symptoms when he gets DKA, no other sick contact. Abdominal pain only with vomiting and diarrhea. No fever or chills. Related Data Home Medications Medication Instructions Recorded Confirmed sertraline 25 mg tablet 1 tab PO DAILY 12/28/21 12/28/21 insulin NPH-regular 70-30 U-100 60 unit subcut BID 12/30/21 12/30/21 insulin 100 unit/mL subcutaneous pen (Novolin 70-30 FlexPen U-100 Insulin) Previous Rx's Medication Instructions Recorded ondansetron HCl 4 mg tablet 4 mg PO Q6H PRN nausea and 10/14/21 vomiting #10 tabs Allergies Allergy/AdvReac Type Severity Reaction Status Date / Time passion fruit [PASSION FRUIT] Allergy Unknown UNK Verified 12/26/21 13:10 Review of Systems Review of Systems: All other systems are reviewed and are negative Constitutional: Reports as per HPI and Reports no additional constitutional complaints Eyes: Reports as per HPI and Reports no additional eye complaints Reports system reviewed and no additional complaints, except as documented Cardiovascular: Reports as per HPI and Reports no additional cardiovascular complaints Respiratory: Reports as per HPI and Reports no additional respiratory complaints Gastrointestinal: Reports as per HPI and Reports no additional gastrointestinal complaints Genitourinary: Reports no additional female genitourinary complaints Musculoskeletal: Reports no additional musculoskeletal complaints Skin/Breast: Reports system reviewed and no additional complaints, except as docu Psychiatric: Reports no additional psychiatric complaints Endocrine: Reports no additional endocrine complaints Hematologic/Lymphatic: Reports no additional hematologic/lymphatic complaints Allergic/Immunologic: Reports no additional allergic/immunologic complaints Reports system reviewed and no additional complaints, except as documented and Reports Abnormal speech present [facility] Past Medical History Medical History Diabetes Diabetic keto-acidosis Esophageal ulcer Gastroparesis Leukocytosis Social History Social History Household Members: None Housing: Apartment Do you presently have visiting nurse or other home services: No Alcohol intake: current Alcohol intake frequency: holidays/special occasions only Alcohol type: beer Patient Tobacco Use Status: Never used Tobacco Substance Use Type: Marijuana Advance Directives: Yes Advance Directives on File: Yes Advance Directives Date on File: 01/22/21 service: No Current occupational status: employed Physical Exam Vital Signs: Vital Signs: Last Vital Signs Temp 97.8 F 01/17/22 10:54 Pulse 116 H 01/17/22 12:18 Resp 18 01/17/22 12:18 BP 109/40 L 01/17/22 12:18 Pulse Ox 112 H 01/17/22 12:18 O2 Del Method 01/17/22 12:18 BMI result Body Mass Index 26.6 Vital signs have been reviewed as appeared to be correct. Blood pressure normal. Heart rate elevated. Respiration rate normal. Temperature normal. Oxygen saturation normal. Appearance: Alert. Oriented X3. No acute distress. Head: Normal external exam. Normocephalic. Atraumatic. No K[place] signs noted. No raccoon eyes noted Eyes: PERRLA. EOMI. Conjunctiva and sclera normal. Eyelids normal. ENT: TM's Normal. Pharynx normal. Uvula midline. Dry mucous membranes. No trismus noted. No drooling noted. No muffled voice noted. Neck: Normal inspection. Neck supple. FROM. No adenopathy. Thyroid Normal. No meningeal signs. No neck mass noted. CVS: Normal heart rate and rhythm. Heart sound normal. No murmurs noted. Pulses normal throughout. Respiratory: No respiratory distress. Painless inspiration. Breath sounds normal. No wheezes/rales/rhonchi noted. Chest nontender. No accessory muscle usage noted or decreased air movement noted. Abdomen: Soft and nontender. Bowel sounds normal in all 4 quadrants. No distention noted. No organomegaly noted. No visible injury noted. Back: No CVA tenderness. Full range of motion noted. Skin: Skin warm and dry. Normal skin color. Normal skin turgor. No rashes/lesions/lacerations noted. Extremities: No lower extremity edema. Extremities exhibit normal range of motion. Extremities nontender. Neuro: Oriented X 3. Cranial nerve exam: II-XII are grossly intact No motor deficit. No sensory deficit. Reflexes normal. Course Course Course Narrative: 26-year-old male with history of insulin-dependent diabetes who apparently not compliant with insulin, patient in the process to get insulin pump insertion via PCP, patient was at [employer] 2 days ago without taking insulin came in and hyperglycemia and DKA, patient received insulin drip in the ED and IV fluids, patient now is in no DKA just hyperglycemic, patient will not be discharged home, patient is awake, alert, oriented x3 very familiar with diabetes complication aware that hyperglycemia can be a life-threatening condition and may lead to or severe complication that compromise his lifestyle, patient still refused to be admitted to the hospital, patient will sign against medical advise after verbalized full understanding of my instruction. Patient was instructed to return if needed to the ED and comply with his insulin therapy. MDM - Nausea/Vomiting/Diarrhea Lab Data Attestation: I reviewed the patient's lab results. Result diagrams: 01/17/22 09:18 01/17/22 13:32 Labs: Lab Results 01/17/22 01/17/22 01/17/22 Range/Units 09:07 09:13 09:18 WBC 14.1 H (4.8-10.8) X10*3/uL RBC 5.43 (4.60-5.80) X10*6/uL Hgb 15.6 (14.0-18.0) g/dl Hct 47.1 D (42.0-52.0) % MCV 86.7 (80.0-98.0) fL MCH 28.7 (27.0-33.0) pg MCHC 33.1 (31.0-36.0) g/dl RDW 13.0 (11.0-16.0) % Plt Count 327 D (160-400) X10*3/uL MPV 9.4 (9.4-12.4) fL Immature Gran % (Auto) 0.4 (0.0-0.4) % Neut % (Auto) 86.9 H (45-73) % Lymph % (Auto) 7.7 L (20-40) % Turner % (Auto) 4.8 (2-11) % Eos % (Auto) 0.0 (0-4) % Baso % (Auto) 0.2 (0-2) % Lymph # (Auto) 1.1 L (1.2-4.9) X10*3/uL Turner # (Auto) 0.7 (0.1-1.2) X10*3/uL Eos # (Auto) 0.0 (0.0-0.4) X10*3/uL Baso # (Auto) 0.0 (0.0-0.2) X10*3/uL Abs Immat Gran (auto) 0.05 H (0.00-0.03) X10*3/uL Absolute Neuts (auto) 12.2 H (2.0-8.3) x10*3/uL Absolute Nucleated RBC 0.000 (0.0-0.012) X10*3/uL Nucleated RBC % (auto) 0.0 (0.0-0.2) /100WBC Sodium (135-145) mmol/L Potassium (3.3-5.1) mmol/L Chloride (96-108) mmol/L Carbon Dioxide (22-29) mmol/L Anion Gap (12-20) BUN (9-16) mg/dL Creatinine (0.5-1.4) mg/dL Estim Creat Clear Calc Estimated GFR POC Glucose 523 H* 468 H* (60-115) mg/dL Random Glucose (60-115) mg/dL Calcium (8.4-10.2) mg/dL Magnesium (1.6-2.6) mg/dL COVID-19 (EARLINE) (Negative) COVID-19 Clin Com S. pyogenes GrpA MARCUS (Negative) 01/17/22 01/17/22 01/17/22 Range/Units 09:18 09:18 10:41 WBC (4.8-10.8) X10*3/uL RBC (4.60-5.80) X10*6/uL Hgb (14.0-18.0) g/dl Hct (42.0-52.0) % MCV (80.0-98.0) fL MCH (27.0-33.0) pg MCHC (31.0-36.0) g/dl RDW (11.0-16.0) % Plt Count (160-400) X10*3/uL MPV (9.4-12.4) fL Immature Gran % (Auto) (0.0-0.4) % Neut % (Auto) (45-73) % Lymph % (Auto) (20-40) % Turner % (Auto) (2-11) % Eos % (Auto) (0-4) % Baso % (Auto) (0-2) % Lymph # (Auto) (1.2-4.9) X10*3/uL Turner # (Auto) (0.1-1.2) X10*3/uL Eos # (Auto) (0.0-0.4) X10*3/uL Baso # (Auto) (0.0-0.2) X10*3/uL Abs Immat Gran (auto) (0.00-0.03) X10*3/uL Absolute Neuts (auto) (2.0-8.3) x10*3/uL Absolute Nucleated RBC (0.0-0.012) X10*3/uL Nucleated RBC % (auto) (0.0-0.2) /100WBC Sodium 135 (135-145) mmol/L Potassium 4.6 D (3.3-5.1) mmol/L Chloride 90 L (96-108) mmol/L Carbon Dioxide 19 L (22-29) mmol/L Anion Gap 31 H (12-20) BUN 16 D (9-16) mg/dL Creatinine 1.46 H (0.5-1.4) mg/dL Estim Creat Clear Calc 69.7 Estimated GFR 59 POC Glucose 334 H (60-115) mg/dL Random Glucose 554 H* (60-115) mg/dL Calcium 10.4 H D (8.4-10.2) mg/dL Magnesium 2.0 (1.6-2.6) mg/dL COVID-19 (EARLINE) Negative (Negative) COVID-19 Clin Com See Note S. pyogenes GrpA MARCUS (Negative) 01/17/22 01/17/22 01/17/22 Range/Units 11:33 12:30 13:32 WBC (4.8-10.8) X10*3/uL RBC (4.60-5.80) X10*6/uL Hgb (14.0-18.0) g/dl Hct (42.0-52.0) % MCV (80.0-98.0) fL MCH (27.0-33.0) pg MCHC (31.0-36.0) g/dl RDW (11.0-16.0) % Plt Count (160-400) X10*3/uL MPV (9.4-12.4) fL Immature Gran % (Auto) (0.0-0.4) % Neut % (Auto) (45-73) % Lymph % (Auto) (20-40) % Turner % (Auto) (2-11) % Eos % (Auto) (0-4) % Baso % (Auto) (0-2) % Lymph # (Auto) (1.2-4.9) X10*3/uL Turner # (Auto) (0.1-1.2) X10*3/uL Eos # (Auto) (0.0-0.4) X10*3/uL Baso # (Auto) (0.0-0.2) X10*3/uL Abs Immat Gran (auto) (0.00-0.03) X10*3/uL Absolute Neuts (auto) (2.0-8.3) x10*3/uL Absolute Nucleated RBC (0.0-0.012) X10*3/uL Nucleated RBC % (auto) (0.0-0.2) /100WBC Sodium 134 L (135-145) mmol/L Potassium 4.3 (3.3-5.1) mmol/L Chloride 96 (96-108) mmol/L Carbon Dioxide 25 (22-29) mmol/L Anion Gap 17 (12-20) BUN 17 H (9-16) mg/dL Creatinine 1.12 (0.5-1.4) mg/dL Estim Creat Clear Calc 90.9 Estimated GFR > 60 POC Glucose 451 H* 366 H* (60-115) mg/dL Random Glucose 364 H* (60-115) mg/dL Calcium 9.5 D (8.4-10.2) mg/dL Magnesium (1.6-2.6) mg/dL COVID-19 (EARLINE) (Negative) COVID-19 Clin Com S. pyogenes GrpA MARCUS (Negative) 01/17/22 Range/Units 13:45 WBC (4.8-10.8) X10*3/uL RBC (4.60-5.80) X10*6/uL Hgb (14.0-18.0) g/dl Hct (42.0-52.0) % MCV (80.0-98.0) fL MCH (27.0-33.0) pg MCHC (31.0-36.0) g/dl RDW (11.0-16.0) % Plt Count (160-400) X10*3/uL MPV (9.4-12.4) fL Immature Gran % (Auto) (0.0-0.4) % Neut % (Auto) (45-73) % Lymph % (Auto) (20-40) % Turner % (Auto) (2-11) % Eos % (Auto) (0-4) % Baso % (Auto) (0-2) % Lymph # (Auto) (1.2-4.9) X10*3/uL Turner # (Auto) (0.1-1.2) X10*3/uL Eos # (Auto) (0.0-0.4) X10*3/uL Baso # (Auto) (0.0-0.2) X10*3/uL Abs Immat Gran (auto) (0.00-0.03) X10*3/uL Absolute Neuts (auto) (2.0-8.3) x10*3/uL Absolute Nucleated RBC (0.0-0.012) X10*3/uL Nucleated RBC % (auto) (0.0-0.2) /100WBC Sodium (135-145) mmol/L Potassium (3.3-5.1) mmol/L Chloride (96-108) mmol/L Carbon Dioxide (22-29) mmol/L Anion Gap (12-20) BUN (9-16) mg/dL Creatinine (0.5-1.4) mg/dL Estim Creat Clear Calc Estimated GFR POC Glucose (60-115) mg/dL Random Glucose (60-115) mg/dL Calcium (8.4-10.2) mg/dL Magnesium (1.6-2.6) mg/dL COVID-19 (EARLINE) (Negative) COVID-19 Clin Com S. pyogenes GrpA MARCUS Negative (Negative) Discharge Plan Discharge Clinical Impression: Hyperglycemia, Gastroenteritis Patient Disposition: Left Against Medical Advice Instructions: Diabetic Hyperglycemia (ED) Prescriptions: No Action ondansetron HCl 4 mg tablet 4 mg PO Q6H PRN (Reason: nausea and vomiting) Qty: 10 0RF sertraline 25 mg tablet 1 tab PO DAILY Novolin 70-30 FlexPen U-100 100 unit/mL (70-30) insulin pen 60 unit subcut BID Referrals: Papi Olivo MD [Primary Care Provider] - Stand Alone Forms: Against Medical Advice
[2022-01-17 09:23] LABS: MANUAL DIFF FLAG NO
[2022-01-17 09:25] LABS: Basophils Percent Auto 0.2 % (0-2); Hematocrit 47.1 % (42.0-52.0); Hemoglobin 15.6 g/dl (14.0-18.0); Imm Gran Abs Auto 0.05 X10*3/uL (0.00-0.03); Imm Gran Pct Auto 0.4 % (0.0-0.4); Lymphocytes Absolute Auto 1.1 X10*3/uL (1.2-4.9); Lymphocytes Percent Auto 7.7 % (20-40); Mean Corpuscular HGB Conc 33.1 g/dl (31.0-36.0); Mean Corpuscular Hemoglobin 28.7 pg (27.0-33.0); Mean Corpuscular Volume 86.7 fL (80.0-98.0); Mean Platelet Volume 9.4 fL (9.4-12.4); Monocytes Absolute Auto 0.7 X10*3/uL (0.1-1.2); Monocytes Percent Auto 4.8 % (2-11); Neutrophils Absolute Auto 12.2 x10*3/uL (2.0-8.3); Neutrophils Percent Auto 86.9 % (45-73); Platelet Count 327 X10*3/uL (160-400); Red Blood Count 5.43 X10*6/uL (4.60-5.80); White Blood Count 14.1 X10*3/uL (4.8-10.8)
[2022-01-17 09:25] LABS: Glucose, Whole Blood 468 mg/dL (60-115)
[2022-01-17] MEDS: Magnesium Hydrox/Alum Hydrox 30 ML ORAL.SUSP PO (09:38)
[2022-01-17] MEDS: ondansetron HCL 4 MG/2 ML VIAL IVPUSH (09:38)
[2022-01-17] MEDS: 0.9 % Sodium Chloride 1,000 ML 999 ML IV (09:38)
[2022-01-17] MEDS: Famotidine/PF 20 MG/2 ML VIAL IVPUSH (09:39)
[2022-01-17] MEDS: Insulin Regular, Human 100 UNIT/ML 3 ML VIAL 10 UNIT IVPUSH (09:39)
[2022-01-17 09:40] LABS: Anion Gap 31 (12-20); Blood Urea Nitrogen 16 mg/dL (9-16); Calcium 10.4 mg/dL (8.4-10.2); Carbon Dioxide 19 mmol/L (22-29); Chloride 90 mmol/L (96-108); Creatinine Clr Calc Pharmacy 69.7; Estimated Glomerular Filt Rate 59; Glucose Random 554 mg/dL (60-115); Potassium 4.6 mmol/L (3.3-5.1); Sodium 135 mmol/L (135-145)
[2022-01-17 09:43] LABS: COVID-19 Test Negative (Negative); IDNOW Serial# 16C4AD1C
[2022-01-17 10:45] LABS: Glucose, Whole Blood 334 mg/dL (60-115)
[2022-01-17 10:54] VITALS: BP 152/90; PULSE 108; TEMP 36.6; O2SAT 100
[2022-01-17 11:39] LABS: Glucose, Whole Blood 451 mg/dL (60-115)
[2022-01-17] MEDS: Insulin Regular/NS 100 UNIT/100 ML PLAST..BAG IVCONT (11:44)
[2022-01-17 12:18] VITALS: BP 109/40; PULSE 116; RESP 18; O2SAT 112
[2022-01-17 12:39] LABS: Glucose, Whole Blood 366 mg/dL (60-115)
[2022-01-17 14:03] LABS: Strep A Nucleic Acid Negative (Negative)
[2022-01-17 14:05] LABS: Anion Gap 17 (12-20); Blood Urea Nitrogen 17 mg/dL (9-16); Calcium 9.5 mg/dL (8.4-10.2); Carbon Dioxide 25 mmol/L (22-29); Chloride 96 mmol/L (96-108); Creatinine Clr Calc Pharmacy 90.9; Estimated Glomerular Filt Rate > 60; Glucose Random 364 mg/dL (60-115); Potassium 4.3 mmol/L (3.3-5.1); Sodium 134 mmol/L (135-145)
[2022-01-17] MEDS: Ibuprofen 600 MG TABLET PO (14:17)
--- NOTE | 2022-01-17 14:44 | PC.NURSE ---
Pt to [facility]a
[2022-01-17 16:02] LABS: Glucose, Whole Blood 320 mg/dL (60-115)
[2022-01-17 16:02] LABS: Glucose, Whole Blood 253 mg/dL (60-115)
== END 2022-01-17 15:40 | disposition left against medical advice (07) ==
PROVIDERS: Emergency Provider Emergency Medicine; PCP Internal Medicine
DX: K52.9 Noninfective gastroenteritis and colitis, unspecified (principal); E11.65 Type 2 diabetes mellitus with hyperglycemia; Z91.14 Patient's other noncompliance with medication regimen; Z20.822 Contact with and (suspected) exposure to COVID-19
CPT/HCPCS: 36415; 80048; 82947; 83735; 85025; 87635; 87651; 96361; 96365; 96366; 96375; 99284; 99285; J2405

== ENCOUNTER 2022-01-18 14:23 | Emergency (ER) | payer OTHER, SELFPAY ==
--- NOTE | 2022-01-18 | ECG_ITS ---
Test Reason : TACHY Blood Pressure : / mmHG Vent. Rate : 115 BPM Atrial Rate : 115 BPM P-R Int : 126 ms QRS Dur : 072 ms QT Int : 308 ms P-R-T Axes : 060 052 019 degrees QTc Int : 426 ms Sinus tachycardia Otherwise normal ECG When compared with ECG of 28-DEC-2021 13:25, Nonspecific T wave abnormality no longer evident in Anterior leads Referred By: Generic ED Physician Electronically Signed By:Roberto Agee
[2022-01-18 14:51] VITALS: BP 145/89; PULSE 122; RESP 18; TEMP 37.2; O2SAT 98; BMI 26.6
[2022-01-18 14:58] LABS: MANUAL DIFF FLAG NO
[2022-01-18 14:59] LABS: Basophils Percent Auto 0.1 % (0-2); Hemoglobin 15.5 g/dl (14.0-18.0); Imm Gran Abs Auto 0.06 X10*3/uL (0.00-0.03); Imm Gran Pct Auto 0.4 % (0.0-0.4); Lymphocytes Percent Auto 7.4 % (20-40); Mean Corpuscular Hemoglobin 28.4 pg (27.0-33.0); Mean Corpuscular Volume 86.2 fL (80.0-98.0); Mean Platelet Volume 9.5 fL (9.4-12.4); Monocytes Absolute Auto 0.9 X10*3/uL (0.1-1.2); Monocytes Percent Auto 6.5 % (2-11); Neutrophils Absolute Auto 11.7 x10*3/uL (2.0-8.3); Neutrophils Percent Auto 85.6 % (45-73); Platelet Count 343 X10*3/uL (160-400); Red Blood Count 5.45 X10*6/uL (4.60-5.80); Red Cell Distribution Width 12.7 % (11.0-16.0); White Blood Count 13.7 X10*3/uL (4.8-10.8)
[2022-01-18 15:17] LABS: Anion Gap 25 (12-20); Blood Urea Nitrogen 17 mg/dL (9-16); Calcium 9.6 mg/dL (8.4-10.2); Carbon Dioxide 21 mmol/L (22-29); Chloride 90 mmol/L (96-108); Creatinine Clr Calc Pharmacy 84.9; Estimated Glomerular Filt Rate > 60; Glucose Random 396 mg/dL (60-115); Potassium 5.3 mmol/L (3.3-5.1); Sodium 131 mmol/L (135-145)
[2022-01-18 16:43] LABS: Glucose, Whole Blood 376 mg/dL (60-115)
== END 2022-01-18 21:57 | disposition left against medical advice (07) ==
PROVIDERS: Emergency Provider Emergency Medicine
DX: E11.10 Type 2 diabetes mellitus with ketoacidosis without coma (principal)
CPT/HCPCS: 36415; 80048; 82947; 85025; 93005; 99282; 99283

== ENCOUNTER 2022-01-19 06:40 | Emergency (ER) | payer OTHER, SELFPAY ==
[2022-01-19 06:47] VITALS: BP 149/98; PULSE 115; RESP 18; TEMP 37; O2SAT 98; BMI 23.5
--- NOTE | 2022-01-19 06:55 | ED.NAVMDI ---
HPI - Nausea/Vomiting/Diarrhea General Chief complaint: General Medical Stated complaint: Weakness/Vomiting/Dka? Time Seen by Provider: 01/19/22 06:52 Source: patient and old records reviewed Mode of arrival: ambulatory Limitations: no limitations History of Present Illness HPI Narrative: 26 yo male with hx of DM not very compliant reports he went to a wedding 5 days a go and drank one drink of hard alcohol and since then has had vomiting and unable to eat. He is here asking for morphine for his stomach pain because he is in DKA with BS of 322 at home. He smokes THC frequently - last smoked 1 week ago. He reports he is in DKA all the time. MD elicited complaint: nausea, vomiting and abdominal pain Pertinent past history: other (poorly controlled DM) Onset (ago): day(s) (5) Description of vomiting: food contents and watery Associated nausea: Yes Associated abdominal pain: Yes Location of pain: epigastric Pain consistency: constant Severity: severe Quality: stabbing Exacerbating factors: eating Relieving factors: none Context: marijuana use and other ( it's my DKA ) Associated symptoms: loss of appetite, malaise and nausea/vomiting Treatment prior to arrival: other (no treatments prior to arrival) Related Data Home Medications Medication Instructions Recorded Confirmed sertraline 25 mg tablet 1 tab PO DAILY 12/28/21 12/28/21 insulin NPH-regular 70-30 U-100 60 unit subcut BID 12/30/21 12/30/21 insulin 100 unit/mL subcutaneous pen (Novolin 70-30 FlexPen U-100 Insulin) Previous Rx's Medication Instructions Recorded ondansetron HCl 4 mg tablet 4 mg PO Q6H PRN nausea and 10/14/21 vomiting #10 tabs metoclopramide HCl 10 mg tablet 10 mg PO Q6H PRN nausea and 01/19/22 (Reglan) vomiting #20 tabs Allergies Allergy/AdvReac Type Severity Reaction Status Date / Time passion fruit [PASSION FRUIT] Allergy Unknown UNK Verified 01/18/22 14:51 Review of Systems Review of Systems: Constitutional : No Weight loss, No Fever, No Chills ENT/Mouth : No sore throat, No Rhinorrhea Eyes: No Swelling, No Redness Cardiovascular : No Chest Pain, No SOB, NoEdema Respiratory : No Cough, No Sputum, No Wheezing Gastrointestinal : Positive Nausea, Positive Vomiting, no Diarrhea, positive abdominal Pain, No Hematochezia, No Melena Genitourinary : No Dysuria, No Urinary Frequency, No Hematuria, No Urgency Musculoskeletal : No joint pain, No Myalgias, No Joint Swelling Skin : No Skin Lesions, No rash Neuro : No Weakness, No Numbness, No Dizziness, No Headache Psych : No Anxiety/Panic, No Depression Heme/Lymph: No Bruising, No Lymphadenopathy Endocrine : No Polyuria, No Polydipsia, pos hyperglycemia All other systems reviewed and are negative. Gastrointestinal: Gastrointestinal: Reports nausea PMFSH Past Medical History Attestation statement: The following information was validated with the patient. Medical History Diabetes Diabetic keto-acidosis Esophageal ulcer Gastroparesis Leukocytosis Social History Social History Household Members: None Housing: Apartment Do you presently have visiting nurse or other home services: No Alcohol intake: current Alcohol intake frequency: holidays/special occasions only Alcohol type: beer Patient Tobacco Use Status: Never used Tobacco Substance Use Type: Marijuana Advance Directives: Yes Advance Directives on File: Yes Advance Directives Date on File: 01/22/21 service: No Current occupational status: employed Physical Exam Vital Signs: Vital Signs: Last Vital Signs Temp 98.6 F 01/19/22 06:47 Pulse 118 H 01/19/22 08:03 Resp 20 01/19/22 08:03 BP 119/62 01/19/22 08:03 Pulse Ox 97 01/19/22 08:03 O2 Del Method 01/19/22 08:03 BMI result Body Mass Index 23.5 Appearance: Alert. Oriented X3. No acute distress. Eyes: Pupils equal, round and reactive to light. ENT: Pharynx mildly dry MM Neck: Normal inspection. Neck supple. CVS: Normal heart rate and rhythm. Pulses normal. Respiratory: No respiratory distress. Breath sounds normal. Abdomen: Soft and not distended moderate ttp in epigastric area no rebound Skin: Skin warm and dry. Normal skin color. Normal skin turgor. Extremities: No lower extremity edema. Neuro: Oriented X 3. No motor deficit. No sensory deficit. Course Course Course Narrative: very mild decrease in HCO3 and small rise in AG - very mild DKA - will hydrate and give insulin and recheck after IVF gap and BS resolved no further DKA no vomiting, feels stable for DC, asking for food MDM - Nausea/Vomiting/Diarrhea MDM Narrative Medical decision making narrative: 26 yo male with hx of IDDM bouts of DKA due to non compliance reports 5 days of pain and vomiting after ETOH use at a wedding. At this time will obtain labs, hydrate, IV insulin, supportive medications - we did discuss not drinking alcohol as well as stopping THC use. Patient verbalizes understanding. Lab Data Result diagrams: 01/19/22 07:27 01/19/22 09:32 Labs: Lab Results 01/19/22 01/19/22 01/19/22 Range/Units 07:19 07:27 07:27 WBC 10.9 H (4.8-10.8) X10*3/uL RBC 5.24 (4.60-5.80) X10*6/uL Hgb 15.1 (14.0-18.0) g/dl Hct 45.1 (42.0-52.0) % MCV 86.1 (80.0-98.0) fL MCH 28.8 (27.0-33.0) pg MCHC 33.5 (31.0-36.0) g/dl RDW 12.7 (11.0-16.0) % Plt Count 294 (160-400) X10*3/uL MPV 9.5 (9.4-12.4) fL Immature Gran % (Auto) 0.3 (0.0-0.4) % Neut % (Auto) 75.1 H (45-73) % Lymph % (Auto) 11.3 L (20-40) % [place] % (Auto) 13.1 H (2-11) % Eos % (Auto) 0.1 (0-4) % Baso % (Auto) 0.1 (0-2) % Lymph # (Auto) 1.2 (1.2-4.9) X10*3/uL [place] # (Auto) 1.4 H (0.1-1.2) X10*3/uL Eos # (Auto) 0.0 (0.0-0.4) X10*3/uL Baso # (Auto) 0.0 (0.0-0.2) X10*3/uL Abs Immat Gran (auto) 0.03 (0.00-0.03) X10*3/uL Absolute Neuts (auto) 8.2 (2.0-8.3) x10*3/uL Absolute Nucleated RBC 0.000 (0.0-0.012) X10*3/uL Nucleated RBC % (auto) 0.0 (0.0-0.2) /100WBC VBG pH (7.32-7.43) VBG pCO2 mmHg VBG pO2 mmHg VBG HCO3 (22-26) mmol/L VBG O2 Saturation % VBG Base Excess mmol/L Sodium 129 L (135-145) mmol/L Potassium 4.3 (3.3-5.1) mmol/L Chloride 91 L (96-108) mmol/L Carbon Dioxide 21 L (22-29) mmol/L Anion Gap 21 H (12-20) BUN 21 H (9-16) mg/dL Creatinine 1.40 (0.5-1.4) mg/dL Estim Creat Clear Calc 72.7 Estimated GFR > 60 POC Glucose 316 H (60-115) mg/dL Random Glucose 342 H (60-115) mg/dL Lactic Acid (0.5-2.0) mmol/L Calcium 8.9 D (8.4-10.2) mg/dL Magnesium 2.4 (1.6-2.6) mg/dL Total Bilirubin 0.5 (0.0-1.0) mg/dL Direct Bilirubin 0.2 (0.0-0.5) mg/dL AST 11 (5-37) U/L ALT 12 (0-40) U/L Alkaline Phosphatase 99 D (39-117) U/L Total Protein 7.1 D (6.5-8.0) g/dL Albumin 4.1 D (3.5-5.0) g/dL Lipase 11 (8-78) U/L Acetone, Qual Moderate H (Negative) COVID-19 (EARLINE) (Negative) COVID-19 Clin Com 01/19/22 01/19/22 01/19/22 Range/Units 07:27 07:27 07:34 WBC (4.8-10.8) X10*3/uL RBC (4.60-5.80) X10*6/uL Hgb (14.0-18.0) g/dl Hct (42.0-52.0) % MCV (80.0-98.0) fL MCH (27.0-33.0) pg MCHC (31.0-36.0) g/dl RDW (11.0-16.0) % Plt Count (160-400) X10*3/uL MPV (9.4-12.4) fL Immature Gran % (Auto) (0.0-0.4) % Neut % (Auto) (45-73) % Lymph % (Auto) (20-40) % [place] % (Auto) (2-11) % Eos % (Auto) (0-4) % Baso % (Auto) (0-2) % Lymph # (Auto) (1.2-4.9) X10*3/uL [place] # (Auto) (0.1-1.2) X10*3/uL Eos # (Auto) (0.0-0.4) X10*3/uL Baso # (Auto) (0.0-0.2) X10*3/uL Abs Immat Gran (auto) (0.00-0.03) X10*3/uL Absolute Neuts (auto) (2.0-8.3) x10*3/uL Absolute Nucleated RBC (0.0-0.012) X10*3/uL Nucleated RBC % (auto) (0.0-0.2) /100WBC VBG pH 7.35 (7.32-7.43) VBG pCO2 32 mmHg VBG pO2 50 mmHg VBG HCO3 18 L (22-26) mmol/L VBG O2 Saturation 76.0 % VBG Base Excess -6.0 mmol/L Sodium (135-145) mmol/L Potassium (3.3-5.1) mmol/L Chloride (96-108) mmol/L Carbon Dioxide (22-29) mmol/L Anion Gap (12-20) BUN (9-16) mg/dL Creatinine (0.5-1.4) mg/dL Estim Creat Clear Calc Estimated GFR POC Glucose (60-115) mg/dL Random Glucose (60-115) mg/dL Lactic Acid 1.1 (0.5-2.0) mmol/L Calcium (8.4-10.2) mg/dL Magnesium (1.6-2.6) mg/dL Total Bilirubin (0.0-1.0) mg/dL Direct Bilirubin (0.0-0.5) mg/dL AST (5-37) U/L ALT (0-40) U/L Alkaline Phosphatase (39-117) U/L Total Protein (6.5-8.0) g/dL Albumin (3.5-5.0) g/dL Lipase (8-78) U/L Acetone, Qual (Negative) COVID-19 (EALRINE) Negative (Negative) COVID-19 Clin Com See Note 01/19/22 01/19/22 Range/Units 08:19 09:32 WBC (4.8-10.8) X10*3/uL RBC (4.60-5.80) X10*6/uL Hgb (14.0-18.0) g/dl Hct (42.0-52.0) % MCV (80.0-98.0) fL MCH (27.0-33.0) pg MCHC (31.0-36.0) g/dl RDW (11.0-16.0) % Plt Count (160-400) X10*3/uL MPV (9.4-12.4) fL Immature Gran % (Auto) (0.0-0.4) % Neut % (Auto) (45-73) % Lymph % (Auto) (20-40) % [place] % (Auto) (2-11) % Eos % (Auto) (0-4) % Baso % (Auto) (0-2) % Lymph # (Auto) (1.2-4.9) X10*3/uL [place] # (Auto) (0.1-1.2) X10*3/uL Eos # (Auto) (0.0-0.4) X10*3/uL Baso # (Auto) (0.0-0.2) X10*3/uL Abs Immat Gran (auto) (0.00-0.03) X10*3/uL Absolute Neuts (auto) (2.0-8.3) x10*3/uL Absolute Nucleated RBC (0.0-0.012) X10*3/uL Nucleated RBC % (auto) (0.0-0.2) /100WBC VBG pH (7.32-7.43) VBG pCO2 mmHg VBG pO2 mmHg VBG HCO3 (22-26) mmol/L VBG O2 Saturation % VBG Base Excess mmol/L Sodium 132 L (135-145) mmol/L Potassium 4.2 (3.3-5.1) mmol/L Chloride 100 (96-108) mmol/L Carbon Dioxide 20 L (22-29) mmol/L Anion Gap 16 (12-20) BUN 18 H (9-16) mg/dL Creatinine 1.09 (0.5-1.4) mg/dL Estim Creat Clear Calc 93.4 Estimated GFR > 60 POC Glucose 179 H (60-115) mg/dL Random Glucose 124 H D (60-115) mg/dL Lactic Acid (0.5-2.0) mmol/L Calcium 8.6 (8.4-10.2) mg/dL Magnesium (1.6-2.6) mg/dL Total Bilirubin (0.0-1.0) mg/dL Direct Bilirubin (0.0-0.5) mg/dL AST (5-37) U/L ALT (0-40) U/L Alkaline Phosphatase (39-117) U/L Total Protein (6.5-8.0) g/dL Albumin (3.5-5.0) g/dL Lipase (8-78) U/L Acetone, Qual (Negative) COVID-19 (EARLINE) (Negative) COVID-19 Clin Com Critical Care Time Critical Care Time Critical Care Time: Yes Total Critical Care Time: 35 Attestation: 2L of IVF, repeat BS, IV insulin I attest to this time spent taking care of the patient Discharge Plan Discharge Clinical Impression: Vomiting Qualifiers: Vomiting type: unspecified Nausea presence: with nausea Qualified Code(s): R11.2 - Nausea with vomiting, unspecified Diabetic keto-acidosis Qualifiers: Diabetes mellitus type: type 1 Diabetes mellitus complication detail: without coma Qualified Code(s): E10.10 - Type 1 diabetes mellitus with ketoacidosis without coma Patient Disposition: Home, Self-Care Instructions: Acute Nausea and Vomiting (ED), Diabetic Hyperglycemia (ED) Additional Instructions: return to ED for any worsening symptoms or concerns please take your insulin as prescribed, avoid alcohol and marijuana as triggers Prescriptions: New metoclopramide HCl [Reglan] 10 mg tablet 10 mg PO Q6H PRN (Reason: nausea and vomiting) Qty: 20 0RF No Action ondansetron HCl 4 mg tablet 4 mg PO Q6H PRN (Reason: nausea and vomiting) Qty: 10 0RF sertraline 25 mg tablet 1 tab PO DAILY Novolin 70-30 FlexPen U-100 100 unit/mL (70-30) insulin pen 60 unit subcut BID
[2022-01-19 07:22] LABS: Glucose, Whole Blood 316 mg/dL (60-115)
[2022-01-19] MEDS: Morphine Sulfate 4 MG/ML CARTRIDGE IVPUSH (07:28)
[2022-01-19] MEDS: diphenhydrAMINE HCL 50 MG/ML VIAL 25 MG IVPUSH (07:28)
[2022-01-19] MEDS: Metoclopramide HCl 10 MG/2 ML VIAL IVPUSH (07:28)
[2022-01-19 07:33] LABS: MANUAL DIFF FLAG NO
[2022-01-19] MEDS: Insulin Regular, Human 100 UNIT/ML 3 ML VIAL IVPUSH (07:34)
[2022-01-19 07:35] LABS: Basophils Percent Auto 0.1 % (0-2); Eosinophils Percent Auto 0.1 % (0-4); Hematocrit 45.1 % (42.0-52.0); Hemoglobin 15.1 g/dl (14.0-18.0); Imm Gran Abs Auto 0.03 X10*3/uL (0.00-0.03); Imm Gran Pct Auto 0.3 % (0.0-0.4); Lymphocytes Absolute Auto 1.2 X10*3/uL (1.2-4.9); Lymphocytes Percent Auto 11.3 % (20-40); Mean Corpuscular HGB Conc 33.5 g/dl (31.0-36.0); Mean Corpuscular Hemoglobin 28.8 pg (27.0-33.0); Mean Corpuscular Volume 86.1 fL (80.0-98.0); Mean Platelet Volume 9.5 fL (9.4-12.4); Monocytes Absolute Auto 1.4 X10*3/uL (0.1-1.2); Monocytes Percent Auto 13.1 % (2-11); Neutrophils Absolute Auto 8.2 x10*3/uL (2.0-8.3); Neutrophils Percent Auto 75.1 % (45-73); Platelet Count 294 X10*3/uL (160-400); Red Blood Count 5.24 X10*6/uL (4.60-5.80); Red Cell Distribution Width 12.7 % (11.0-16.0); White Blood Count 10.9 X10*3/uL (4.8-10.8)
[2022-01-19 07:38] LABS: VBG HCO3 18 mmol/L (22-26); VBG pCO2 32 mmHg; VBG pH 7.35 (7.32-7.43); VBG pO2 50 mmHg
[2022-01-19] MEDS: Lactated Ringers 1,000 ML 999 ML IV ×2 (07:38)
[2022-01-19 07:40] LABS: Venous Blood Gas Refer to POC result
--- NOTE | 2022-01-19 07:43 | PC.NURSE ---
Pt is A&Ox4, no signs of distress, N/V at this time. Pt states he has had N/V x 5 days and thinks he is in DKA, BG 330, 5 units IV insulin given. Pt has not vomited in my presence. Medicated as per [facility] orders. Abd soft, non tender, +BS. Call wyatt within reach, will continue to monitor.
[2022-01-19 07:47] LABS: Lactic Acid 1.1 mmol/L (0.5-2.0)
[2022-01-19 07:55] LABS: Alanine Aminotransferase 12 U/L (0-40); Albumin Level 4.1 g/dL (3.5-5.0); Alkaline Phosphatase 99 U/L (39-117); Anion Gap 21 (12-20); Aspartate Amino Transferase 11 U/L (5-37); Bilirubin Direct 0.2 mg/dL (0.0-0.5); Bilirubin Total 0.5 mg/dL (0.0-1.0); Blood Urea Nitrogen 21 mg/dL (9-16); Calcium 8.9 mg/dL (8.4-10.2); Carbon Dioxide 21 mmol/L (22-29); Chloride 91 mmol/L (96-108); Creatinine Clr Calc Pharmacy 72.7; Estimated Glomerular Filt Rate > 60; Glucose Random 342 mg/dL (60-115); Lipase 11 U/L (8-78); Magnesium 2.4 mg/dL (1.6-2.6); Potassium 4.3 mmol/L (3.3-5.1); Sodium 129 mmol/L (135-145); Total Protein 7.1 g/dL (6.5-8.0)
[2022-01-19 07:58] LABS: COVID-19 Test Negative (Negative); IDNOW Serial# 16C4AD1C
[2022-01-19 08:03] VITALS: BP 119/62; PULSE 118; RESP 20; O2SAT 97
[2022-01-19 08:22] LABS: Glucose, Whole Blood 179 mg/dL (60-115)
[2022-01-19 08:22] LABS: Acetone, serum QL Moderate (Negative)
[2022-01-19 09:55] LABS: Anion Gap 16 (12-20); Blood Urea Nitrogen 18 mg/dL (9-16); Calcium 8.6 mg/dL (8.4-10.2); Carbon Dioxide 20 mmol/L (22-29); Chloride 100 mmol/L (96-108); Creatinine Clr Calc Pharmacy 93.4; Estimated Glomerular Filt Rate > 60; Glucose Random 124 mg/dL (60-115); Potassium 4.2 mmol/L (3.3-5.1); Sodium 132 mmol/L (135-145)
== END 2022-01-19 10:46 | disposition home or self-care (01) ==
PROVIDERS: Emergency Provider Emergency Medicine; PCP Internal Medicine
DX: E10.10 Type 1 diabetes mellitus with ketoacidosis without coma (principal); R11.2 Nausea with vomiting, unspecified; R53.1 Weakness; Z20.822 Contact with and (suspected) exposure to COVID-19; Z79.4 Long term (current) use of insulin
CPT/HCPCS: 36415; 80048; 80076; 82009; 82803; 82947; 83605; 83690; 83735; 85025; 87635; 96374; 96375; 99284; J1200; J2270; J2765

== ENCOUNTER 2022-01-20 22:00 | Emergency (ER) | payer OTHER, SELFPAY ==
[2022-01-20 22:23] VITALS: BP 146/99; PULSE 93; RESP 18; TEMP 36.1; O2SAT 100; BMI 26.6
--- NOTE | 2022-01-21 00:03 | ED.ABDPAIN ---
HPI - Abdominal Pain General Chief Complaint: Abdominal Pain Stated Complaint: ?dehydration vs DKA Time Seen by Provider: 01/20/22 23:51 Source: patient Mode of arrival: ambulatory Limitations: no limitations History of Present Illness HPI narrative: Patient comes to emergency room complaining of ?dehydration versus DKA . Patient states that he has not had good p.o. intake for last 5 days, complaining of epigastric/mid abdominal pain for 5 days. Patient was seen here yesterday, he was diagnosed with mild DKA, discharged home. Patient states that he has been diagnosed with gastric ulcers in the past, patient started taking pantoprazole yesterday. Patient denies. Chills, no vomiting, no diarrhea Related Data Home Medications Medication Instructions Recorded Confirmed sertraline 25 mg tablet 1 tab PO DAILY 12/28/21 12/28/21 insulin NPH-regular 70-30 U-100 60 unit subcut BID 12/30/21 12/30/21 insulin 100 unit/mL subcutaneous pen (Novolin 70-30 FlexPen U-100 Insulin) Previous Rx's Medication Instructions Recorded ondansetron HCl 4 mg tablet 4 mg PO Q6H PRN nausea and 10/14/21 vomiting #10 tabs metoclopramide HCl 10 mg tablet 10 mg PO Q6H PRN nausea and 01/19/22 (Reglan) vomiting #20 tabs Allergies Allergy/AdvReac Type Severity Reaction Status Date / Time passion fruit [PASSION FRUIT] Allergy Unknown UNK Verified 01/18/22 14:51 Review of Systems Review of Systems Constitutional : No Weight loss, No Fever, No Chills, No Night Sweats, No Fatigue, No Malaise ENT/Mouth : No Hearing loss, No Ear Pain, No Nasal Congestion, No Sinus Pain, No Hoarseness, No sore throat, No Rhinorrhea, No Swallowing Difficulty Eyes: No Eye Pain, No Swelling, No Redness, No Foreign Body, No Discharge, No Vision Changes Cardiovascular : No Chest Pain, No SOB, No Dyspnea on Exertion, No Orthopnea, No Edema, No Palpitations Respiratory : No Cough, No Sputum, No Wheezing, No Smoke Exposure, No Dyspnea Gastrointestinal : Complaining of epigastric pain, no vomiting diarrhea. Genitourinary : no irregular bleeding, No Dysuria, No Urinary Frequency, No Hematuria, No Urinary Incontinence, No Urgency, No Flank Pain, No Urinary Flow Changes, No Hesitancy Musculoskeletal : No joint pain, No Myalgias, No Joint Swelling Skin : No Skin Lesions, No rash Neuro : No Weakness, No Numbness, No Paresthesias, No Loss of Consciousness, No Dizziness, No Headache Psych : No Anxiety/Panic, No Depression, No SI/HI/AH/VH, No Social Issues, Heme/Lymph: No Bruising, No Bleeding,No Lymphadenopathy Endocrine : No Polyuria, No Polydipsia, No Temperature Intolerance [facility] Past Medical History Medical History Diabetes Diabetic keto-acidosis Esophageal ulcer Gastroparesis Leukocytosis Social History Social History Household Members: None Housing: Apartment Do you presently have visiting nurse or other home services: No Alcohol intake: never Patient Tobacco Use Status: Never used Tobacco Use of substances other than those prescribed or required for medical reasons: Unknown Substance Use Type: Marijuana Advance Directives: Yes Advance Directives on File: Yes Advance Directives Date on File: 01/22/21 service: No Current occupational status: employed Physical Exam ED Vital Signs: Vital Signs - 24 hr 01/20/22 22:23 01/21/22 00:46 Temperature 96.9 F 98.5 F Pulse Rate 93 94 Respiratory Rate 18 18 Blood Pressure 146/99 H 155/96 H Pulse Oximetry 100 100 Oxygen Delivery Method Room Air Room Air BMI result Body Mass Index 26.6 Const Other: Appearance: Alert. Oriented X3. No acute distress. Well-appearing Eyes: Pupils equal, round and reactive to light. ENT: Pharynx normal. Neck: Normal inspection. Neck supple. No lymph nodes noted. No crepitus CVS: Normal heart rate and rhythm. Pulses normal. Normal S1 and S2 Respiratory: No respiratory distress. Breath sounds normal. No Wheezing. No rales Abdomen: Soft and nontender. No rigidity. No distention. Skin: Skin warm and dry. Normal skin color. Normal skin turgor. Extremities: No lower extremity edema. No Lacerations. No Rash Neuro: Oriented X 3. No motor deficit. No sensory deficit. Moving all extremities. No slurred speech. CN 2 through 12 grossly intact Psych: calm, cooperative, normal affect Course Course Course Narrative: Patient receiving IV fluids, all the labs pending. For the burning epigastric pain, patient receiving a GI cocktail Patient states he feels better. The only thing pending his urine. Patient states that he cannot urinate. Bladder scan shows 500 cc of urine. Patient states that he refuses a straight cath. I discussed with the patient that he will likely need endoscopy. Patient to continue taking the GI treatment that he started yesterday. MDM - Abdominal Pain Lab Data Result diagrams: 01/21/22 00:11 01/21/22 00:11 Labs: Lab Results 01/21/22 01/21/22 01/21/22 Range/Units 00:11 00:11 00:11 WBC 7.1 (4.8-10.8) X10*3/uL RBC 4.59 L (4.60-5.80) X10*6/uL Hgb 13.1 L (14.0-18.0) g/dl Hct 39.0 L (42.0-52.0) % MCV 85.0 (80.0-98.0) fL MCH 28.5 (27.0-33.0) pg MCHC 33.6 (31.0-36.0) g/dl RDW 12.3 (11.0-16.0) % Plt Count 275 (160-400) X10*3/uL MPV 9.3 L (9.4-12.4) fL Immature Gran % (Auto) 0.6 H (0.0-0.4) % Neut % (Auto) 58.4 (45-73) % Lymph % (Auto) 24.4 (20-40) % [place] % (Auto) 16.0 H (2-11) % Eos % (Auto) 0.3 (0-4) % Baso % (Auto) 0.3 (0-2) % Lymph # (Auto) 1.7 (1.2-4.9) X10*3/uL [place] # (Auto) 1.1 (0.1-1.2) X10*3/uL Eos # (Auto) 0.0 (0.0-0.4) X10*3/uL Baso # (Auto) 0.0 (0.0-0.2) X10*3/uL Abs Immat Gran (auto) 0.04 H (0.00-0.03) X10*3/uL Absolute Neuts (auto) 4.1 (2.0-8.3) x10*3/uL Absolute Nucleated RBC 0.000 (0.0-0.012) X10*3/uL Nucleated RBC % (auto) 0.0 (0.0-0.2) /100WBC Sodium 131 L (135-145) mmol/L Potassium 4.1 (3.3-5.1) mmol/L Chloride 94 L (96-108) mmol/L Carbon Dioxide 28 (22-29) mmol/L Anion Gap 13 (12-20) BUN 9 (9-16) mg/dL Creatinine 1.01 (0.5-1.4) mg/dL Estim Creat Clear Calc 100.8 Estimated GFR > 60 Random Glucose 272 H D (60-115) mg/dL Calcium 8.6 (8.4-10.2) mg/dL Total Bilirubin 0.4 (0.0-1.0) mg/dL Direct Bilirubin 0.2 (0.0-0.5) mg/dL AST 9 (5-37) U/L ALT 9 (0-40) U/L Alkaline Phosphatase 80 (39-117) U/L Total Protein 6.4 L (6.5-8.0) g/dL Albumin 3.8 (3.5-5.0) g/dL Acetone, Qual Small H (Negative) Discharge Plan Discharge Clinical Impression: Gastritis Patient Disposition: Home, Self-Care Instructions: Gastritis (ED), Diet for Stomach Ulcers and Gastritis (ED) Additional Instructions: Please follow-up with your primary care physician tomorrow. If you have any worsening or new symptoms, please return to the emergency room or call 911 Prescriptions: No Action ondansetron HCl 4 mg tablet 4 mg PO Q6H PRN (Reason: nausea and vomiting) Qty: 10 0RF sertraline 25 mg tablet 1 tab PO DAILY Novolin 70-30 FlexPen U-100 100 unit/mL (70-30) insulin pen 60 unit subcut BID metoclopramide HCl [Reglan] 10 mg tablet 10 mg PO Q6H PRN (Reason: nausea and vomiting) Qty: 20 0RF Referrals: Hammad Scanlon [Physician] - 2 days
[2022-01-21 00:15] LABS: MANUAL DIFF FLAG NO
--- NOTE | 2022-01-21 00:20 | PC.NURSE ---
pt educated on need for urine sample x2. Urine cup placed at bedside and call wyatt within reach
[2022-01-21 00:23] LABS: Basophils Percent Auto 0.3 % (0-2); Eosinophils Percent Auto 0.3 % (0-4); Hemoglobin 13.1 g/dl (14.0-18.0); Imm Gran Abs Auto 0.04 X10*3/uL (0.00-0.03); Imm Gran Pct Auto 0.6 % (0.0-0.4); Lymphocytes Absolute Auto 1.7 X10*3/uL (1.2-4.9); Lymphocytes Percent Auto 24.4 % (20-40); Mean Corpuscular HGB Conc 33.6 g/dl (31.0-36.0); Mean Corpuscular Hemoglobin 28.5 pg (27.0-33.0); Mean Platelet Volume 9.3 fL (9.4-12.4); Monocytes Absolute Auto 1.1 X10*3/uL (0.1-1.2); Neutrophils Absolute Auto 4.1 x10*3/uL (2.0-8.3); Neutrophils Percent Auto 58.4 % (45-73); Platelet Count 275 X10*3/uL (160-400); Red Blood Count 4.59 X10*6/uL (4.60-5.80); Red Cell Distribution Width 12.3 % (11.0-16.0); White Blood Count 7.1 X10*3/uL (4.8-10.8)
[2022-01-21] MEDS: ondansetron HCL 4 MG/2 ML VIAL IVPUSH (00:29)
[2022-01-21] MEDS: Lidocaine HCl Viscous 2 % 15 ML SOLUTION MUCOUS MEM (00:30)
[2022-01-21] MEDS: Magnesium Hydrox/Alum Hydrox 30 ML ORAL.SUSP PO (00:30)
[2022-01-21] MEDS: 0.9 % Sodium Chloride 1,000 ML 999 ML IVCONT (00:30)
[2022-01-21 00:33] LABS: Acetone, serum QL Small (Negative); Alanine Aminotransferase 9 U/L (0-40); Albumin Level 3.8 g/dL (3.5-5.0); Alkaline Phosphatase 80 U/L (39-117); Anion Gap 13 (12-20); Aspartate Amino Transferase 9 U/L (5-37); Bilirubin Direct 0.2 mg/dL (0.0-0.5); Bilirubin Total 0.4 mg/dL (0.0-1.0); Blood Urea Nitrogen 9 mg/dL (9-16); Calcium 8.6 mg/dL (8.4-10.2); Carbon Dioxide 28 mmol/L (22-29); Chloride 94 mmol/L (96-108); Creatinine Clr Calc Pharmacy 100.8; Estimated Glomerular Filt Rate > 60; Glucose Random 272 mg/dL (60-115); Potassium 4.1 mmol/L (3.3-5.1); Sodium 131 mmol/L (135-145); Total Protein 6.4 g/dL (6.5-8.0)
--- NOTE | 2022-01-21 00:37 | PC.NURSE ---
22 gauge IV placed right hand. Medicated per Oct.
[2022-01-21 00:46] VITALS: BP 155/96; PULSE 94; RESP 18; TEMP 36.9; O2SAT 100
[2022-01-21] MEDS: Acetaminophen 325 MG TABLET 650 MG PO (01:06)
--- NOTE | 2022-01-21 02:13 | PC.NURSE ---
pt ambulated with steady gait to bathroom, states unable to void at this time. unable to obtain urine sample. RN aware
--- NOTE | 2022-01-21 02:19 | PC.NURSE ---
Pt bladder scanned per RN, bladder scan showed >590mL of urine in bladder. RN aware
--- NOTE | 2022-01-21 03:00 | PC.NURSE ---
pt attempted to urinate again with no success.RN aware
--- NOTE | 2022-01-21 03:29 | PC.NURSE ---
Provider made aware that pt can not void. Pt is refusing Barney at this time. Dr. Cuevas is aware.
== END 2022-01-21 03:41 | disposition home or self-care (01) ==
PROVIDERS: Emergency Provider Emergency Medicine; PCP Internal Medicine
DX: K29.70 Gastritis, unspecified, without bleeding (principal); R39.198 Other difficulties with micturition; E11.9 Type 2 diabetes mellitus without complications; Z87.19 Personal history of other diseases of the digestive system
CPT/HCPCS: 36415; 51798; 80053; 82009; 82248; 85025; 96361; 96374; 99284; J2405

== ENCOUNTER 2022-03-15 10:59 | Inpatient (IN) | payer OTHER, SELFPAY ==
[2022-03-15 11:07] VITALS: BP 148/86; PULSE 110; RESP 16; TEMP 36.6; O2SAT 97; BMI 26.6
[2022-03-15 11:19] LABS: Glucose, Whole Blood > 600 mg/dL (60-115)
[2022-03-15 11:28] LABS: MANUAL DIFF FLAG NO
[2022-03-15 11:33] LABS: Basophils Percent Auto 0.1 % (0-2); Hematocrit 43.5 % (42.0-52.0); Hemoglobin 14.6 g/dl (14.0-18.0); Imm Gran Abs Auto 0.05 X10*3/uL (0.00-0.03); Imm Gran Pct Auto 0.4 % (0.0-0.4); Lymphocytes Absolute Auto 0.6 X10*3/uL (1.2-4.9); Lymphocytes Percent Auto 5.5 % (20-40); Mean Corpuscular HGB Conc 33.6 g/dl (31.0-36.0); Mean Corpuscular Hemoglobin 28.9 pg (27.0-33.0); Mean Platelet Volume 10.3 fL (9.4-12.4); Monocytes Absolute Auto 0.5 X10*3/uL (0.1-1.2); Monocytes Percent Auto 4.6 % (2-11); Neutrophils Absolute Auto 10.5 x10*3/uL (2.0-8.3); Neutrophils Percent Auto 89.4 % (45-73); Platelet Count 264 X10*3/uL (160-400); Red Blood Count 5.06 X10*6/uL (4.60-5.80); Red Cell Distribution Width 12.8 % (11.0-16.0); White Blood Count 11.7 X10*3/uL (4.8-10.8)
[2022-03-15 11:59] LABS: Acetone, serum QL Small (Negative)
[2022-03-15 12:03] LABS: Alanine Aminotransferase 10 U/L (0-40); Albumin Level 4.6 g/dL (3.5-5.0); Alkaline Phosphatase 75 U/L (39-117); Anion Gap 22 (12-20); Aspartate Amino Transferase 10 U/L (5-37); Bilirubin Total 0.9 mg/dL (0.0-1.0); Blood Urea Nitrogen 15 mg/dL (9-16); Calcium 9.5 mg/dL (8.4-10.2); Carbon Dioxide 21 mmol/L (22-29); Chloride 86 mmol/L (96-108); Creatinine Clr Calc Pharmacy 68.3; Estimated Glomerular Filt Rate 57; Ethanol < 10 mg/dL; Glucose Random 677 mg/dL (60-115); Potassium 5.4 mmol/L (3.3-5.1); Sodium 124 mmol/L (135-145); Total Protein 7.3 g/dL (6.5-8.0)
[2022-03-15 14:22] LABS: Lipase 11 U/L (8-78); Magnesium 1.8 mg/dL (1.6-2.6)
[2022-03-15 14:29] LABS: Venous Blood Gas Refer to POC result
[2022-03-15 14:30] LABS: VBG Base Excess 0.6 mmol/L; VBG HCO3 23 mmol/L (22-26); VBG pCO2 31 mmHg; VBG pH 7.46 (7.32-7.43); VBG pO2 109 mmHg
--- NOTE | 2022-03-15 14:35 | ED_ITS ---
HPI - General Adult General Chief complaint: General Medical Stated complaint: DKA? Dehydration Time Seen by Provider: 03/15/22 13:56 Source: patient Mode of arrival: ambulatory History of Present Illness HPI narrative: 26-year-old male with a past medical history of diabetes, gastroparesis, recurrent DKA, presenting to the ED complaining of nausea, vomiting, and abdominal cramping since last night. States has been unable to tolerate p.o.. Reports glucometer was reading high at home. Also reports polydipsia. Denies fever, chills, cough, chest pain, shortness of breath, diarrhea, dysuria/hematuria. Reports compliance with his Insulin Onset (ago): hour(s) Related Data Home Medications Medication Instructions Recorded Confirmed sertraline 25 mg tablet 25 mg PO DAILY 12/28/21 03/15/22 insulin NPH-regular 70-30 U-100 55 unit subcut BIDAC 03/15/22 03/15/22 insulin 100 unit/mL subcutaneous pen (Novolin 70-30 FlexPen U-100 Insulin) insulin lispro 100 unit/mL See Rx Instructions .Route .COMPLEX 03/15/22 03/15/22 subcutaneous solution pantoprazole 40 mg tablet,delayed 1 tab PO DAILY 03/15/22 03/15/22 release Allergies Allergy/AdvReac Type Severity Reaction Status Date / Time passion fruit [PASSION FRUIT] Allergy Unknown UNK Verified 03/15/22 11:10 Review of Systems Review of Systems: Constitutional:No Fever, No Chills, No Fatigue, No Malaise ENT/Mouth: No Hearing loss, No Ear Pain, No Nasal Congestion, No sore throat, No Rhinorrhea, No Swallowing Difficulty Eyes: No Eye Pain, No Swelling, No Redness,No Vision Changes Cardiovascular: No Chest Pain, No SOB, No Dyspnea on Exertion, No Orthopnea, No Edema, No Palpitations Respiratory: No Cough, No Sputum, No Dyspnea Gastrointestinal: + Nausea, + Vomiting, No Diarrhea, No Constipation, + Abdominal Cramping Genitourinary: No irregular bleeding, No Dysuria, No Urinary Frequency, No Hematuria, No Urinary Incontinence/retention, No Flank Pain Musculoskeletal: No joint pain, No Myalgias, No Joint Swelling Skin: No Skin Lesions, No rash Neuro: No Weakness, No Numbness, No Paresthesias, No Dizziness, No Headache Yes all other systems are reviewed and are negative Constitutional: Constitutional: Reports as per [facility] Past Medical History Attestation statement: The following information was validated with the patient. Medical History Diabetes Diabetic keto-acidosis Esophageal ulcer Gastroparesis Leukocytosis Social History Social History Household Members: None Housing: Apartment Do you presently have visiting nurse or other home services: No Alcohol intake: never Patient Tobacco Use Status: Never used Tobacco Substance Use Type: Marijuana Advance Directives: Yes Advance Directives on File: Yes Advance Directives Date on File: 01/22/21 service: No Current occupational status: employed Physical Exam ED Vital Signs: Vital Signs - 24 hr 03/15/22 11:07 03/15/22 15:01 Temperature 97.8 F Pulse Rate 110 H 109 H Respiratory Rate 16 16 Blood Pressure 148/86 H 129/80 Pulse Oximetry 97 100 Oxygen Delivery Method Room Air Room Air BMI result Body Mass Index 26.6 Const General: cooperative, healthy appearing and no acute distress Orientation/consciousness: patient oriented x3 Limitations: no limitations HENMT Head: Yes normal to inspection and Yes atraumatic Ears: hearing grossly normal bilaterally General nose exam: Normal external nose present Face and sinus: Yes normal facial exam Eyes General: appearance normal, both eyes and all related structures EOM: EOMs intact bilaterally Neck Neck: Yes normal visual inspection and Yes no meningeal signs Resp Effort & Inspection: normal respiratory effort and no respiratory distress Auscultation: clear to auscultation bilaterally Cardio Rate: regular rate Heart sounds: S1 normal heart sound present and S2 normal heart sound present GI Inspection: Yes normal to inspection Palpation (GI): Soft to palpation, nontender, no guarding and not rigid General: Yes no CVA tenderness Back/Spine/Pelvis Back: no CVA tenderness Skin Rashes: no rashes Wounds: no wounds Neuro General: patient oriented x3, tone normal and no meningeal signs Gait exam (Neuro): Normal gait present Extrem General: Yes normal to inspection Course Course Course Narrative: -mild leukocytosis of 11.7. Hyponatremic to 124 > corrected for hyperglycemia is 133. Hyperkalemic to 5.4. Anion gap of 22. GISSELLE of 1.49. > low suspicion for severe sepsis, lab abnormalities from DKA. Lactic acid negative. Acetone positive -1527--repeat POC after 1/2 L of LR 373 > insulin drip has not yet been started, canceled will give 5U IV insulin -1653--repeat point of care 255. Plan to admit for further management. Repeat BMP ordered > 1800--patient expressing desires to be discharged if blood work improved. BMP currently pending. ED care transferred to [facility] pending repeat labs and re- evaluation, still recommend admission Medical Decision Making [facility] Narrative Medical decision making narrative: 26-year-old male with a past medical history of diabetes, gastroparesis, recurrent DKA, presenting to the ED complaining of nausea, vomiting, and abdominal cramping since last night. On exam tachycardic likely from dehydration, abdomen soft and nontender, nontoxic appearing. Concern for hyperglycemia vs DKA vs cyclical vomiting and dehydration. Rule out metabolic abnormalities. Lower suspicion for appendicitis/diverticulitis or cholecystitis/lithiasis Plan: EKG, labs, UA, IVF, IV insulin, anticipated admission Medical Records Medical records reviewed: Yes I reviewed the patient's medical records. Lab Data Lab results reviewed: Yes I reviewed the patient's lab results. Result diagrams: 03/15/22 11:24 03/15/22 11:24 Labs: Lab Results 03/15/22 03/15/22 03/15/22 Range/Units 11:13 11:24 11:24 WBC 11.7 H (4.8-10.8) X10*3/uL RBC 5.06 (4.60-5.80) X10*6/uL Hgb 14.6 (14.0-18.0) g/dl Hct 43.5 (42.0-52.0) % MCV 86.0 (80.0-98.0) fL MCH 28.9 (27.0-33.0) pg MCHC 33.6 (31.0-36.0) g/dl RDW 12.8 (11.0-16.0) % Plt Count 264 (160-400) X10*3/uL MPV 10.3 (9.4-12.4) fL Immature Gran % (Auto) 0.4 (0.0-0.4) % Neut % (Auto) 89.4 H (45-73) % Lymph % (Auto) 5.5 L (20-40) % [place] % (Auto) 4.6 (2-11) % Eos % (Auto) 0.0 (0-4) % Baso % (Auto) 0.1 (0-2) % Lymph # (Auto) 0.6 L (1.2-4.9) X10*3/uL [place] # (Auto) 0.5 (0.1-1.2) X10*3/uL Eos # (Auto) 0.0 (0.0-0.4) X10*3/uL Baso # (Auto) 0.0 (0.0-0.2) X10*3/uL Abs Immat Gran (auto) 0.05 H (0.00-0.03) X10*3/uL Absolute Neuts (auto) 10.5 H (2.0-8.3) x10*3/uL Absolute Nucleated RBC 0.000 (0.0-0.012) X10*3/uL Nucleated RBC % (auto) 0.0 (0.0-0.2) /100WBC VBG pH VBG pCO2 VBG pO2 VBG HCO3 VBG O2 Saturation VBG Base Excess Sodium 124 L (135-145) mmol/L Potassium 5.4 H D (3.3-5.1) mmol/L Chloride 86 L (96-108) mmol/L Carbon Dioxide 21 L (22-29) mmol/L Anion Gap 22 H (12-20) BUN 15 D (9-16) mg/dL Creatinine 1.49 H (0.5-1.4) mg/dL Estim Creat Clear Calc 68.3 Estimated GFR 57 POC Glucose > 600 H* (60-115) mg/dL Random Glucose 677 H* (60-115) mg/dL Lactic Acid (0.5-2.0) mmol/L Calcium 9.5 D (8.4-10.2) mg/dL Magnesium 1.8 (1.6-2.6) mg/dL Total Bilirubin 0.9 (0.0-1.0) mg/dL AST 10 (5-37) U/L ALT 10 (0-40) U/L Alkaline Phosphatase 75 (39-117) U/L Total Protein 7.3 (6.5-8.0) g/dL Albumin 4.6 D (3.5-5.0) g/dL Lipase 11 (8-78) U/L Ethyl Alcohol < 10 mg/dL Acetone, Qual Small H (Negative) 03/15/22 03/15/22 03/15/22 Range/Units 14:19 14:21 14:25 WBC (4.8-10.8) X10*3/uL RBC (4.60-5.80) X10*6/uL Hgb (14.0-18.0) g/dl Hct (42.0-52.0) % MCV (80.0-98.0) fL MCH (27.0-33.0) pg MCHC (31.0-36.0) g/dl RDW (11.0-16.0) % Plt Count (160-400) X10*3/uL MPV (9.4-12.4) fL Immature Gran % (Auto) (0.0-0.4) % Neut % (Auto) (45-73) % Lymph % (Auto) (20-40) % [place] % (Auto) (2-11) % Eos % (Auto) (0-4) % Baso % (Auto) (0-2) % Lymph # (Auto) (1.2-4.9) X10*3/uL [place] # (Auto) (0.1-1.2) X10*3/uL Eos # (Auto) (0.0-0.4) X10*3/uL Baso # (Auto) (0.0-0.2) X10*3/uL Abs Immat Gran (auto) (0.00-0.03) X10*3/uL Absolute Neuts (auto) (2.0-8.3) x10*3/uL Absolute Nucleated RBC (0.0-0.012) X10*3/uL Nucleated RBC % (auto) (0.0-0.2) /100WBC VBG pH Cancelled 7.46 H VBG pCO2 Cancelled 31 VBG pO2 Cancelled 109 VBG HCO3 Cancelled 23 VBG O2 Saturation Cancelled 99.0 VBG Base Excess Cancelled 0.6 Sodium (135-145) mmol/L Potassium (3.3-5.1) mmol/L Chloride (96-108) mmol/L Carbon Dioxide (22-29) mmol/L Anion Gap (12-20) BUN (9-16) mg/dL Creatinine (0.5-1.4) mg/dL Estim Creat Clear Calc Estimated GFR POC Glucose (60-115) mg/dL Random Glucose (60-115) mg/dL Lactic Acid 1.6 (0.5-2.0) mmol/L Calcium (8.4-10.2) mg/dL Magnesium (1.6-2.6) mg/dL Total Bilirubin (0.0-1.0) mg/dL AST (5-37) U/L ALT (0-40) U/L Alkaline Phosphatase (39-117) U/L Total Protein (6.5-8.0) g/dL Albumin (3.5-5.0) g/dL Lipase (8-78) U/L Ethyl Alcohol mg/dL Acetone, Qual (Negative) 03/15/22 03/15/22 Range/Units 15:23 16:50 WBC (4.8-10.8) X10*3/uL RBC (4.60-5.80) X10*6/uL Hgb (14.0-18.0) g/dl Hct (42.0-52.0) % MCV (80.0-98.0) fL MCH (27.0-33.0) pg MCHC (31.0-36.0) g/dl RDW (11.0-16.0) % Plt Count (160-400) X10*3/uL MPV (9.4-12.4) fL Immature Gran % (Auto) (0.0-0.4) % Neut % (Auto) (45-73) % Lymph % (Auto) (20-40) % [place] % (Auto) (2-11) % Eos % (Auto) (0-4) % Baso % (Auto) (0-2) % Lymph # (Auto) (1.2-4.9) X10*3/uL [place] # (Auto) (0.1-1.2) X10*3/uL Eos # (Auto) (0.0-0.4) X10*3/uL Baso # (Auto) (0.0-0.2) X10*3/uL Abs Immat Gran (auto) (0.00-0.03) X10*3/uL Absolute Neuts (auto) (2.0-8.3) x10*3/uL Absolute Nucleated RBC (0.0-0.012) X10*3/uL Nucleated RBC % (auto) (0.0-0.2) /100WBC VBG pH VBG pCO2 VBG pO2 VBG HCO3 VBG O2 Saturation VBG Base Excess Sodium (135-145) mmol/L Potassium (3.3-5.1) mmol/L Chloride (96-108) mmol/L Carbon Dioxide (22-29) mmol/L Anion Gap (12-20) BUN (9-16) mg/dL Creatinine (0.5-1.4) mg/dL Estim Creat Clear Calc Estimated GFR POC Glucose 373 H* 252 H (60-115) mg/dL Random Glucose (60-115) mg/dL Lactic Acid (0.5-2.0) mmol/L Calcium (8.4-10.2) mg/dL Magnesium (1.6-2.6) mg/dL Total Bilirubin (0.0-1.0) mg/dL AST (5-37) U/L ALT (0-40) U/L Alkaline Phosphatase (39-117) U/L Total Protein (6.5-8.0) g/dL Albumin (3.5-5.0) g/dL Lipase (8-78) U/L Ethyl Alcohol mg/dL Acetone, Qual (Negative) Critical Care Time Critical Care Time Critical Care Time: Yes Total Critical Care Time: 40 Attestation: I have personally provided critical care time exclusive of time spent on separately billable procedures. Time includes review of lab data, radiology results, discussion with consultants, and monitoring for potential decompensatio n. Intervention performed as documented. Discharge Plan Discharge Clinical Impression: DKA (diabetic ketoacidosis) Patient Disposition: Admitted As Inpatient
[2022-03-15 14:36] LABS: Lactic Acid 1.6 mmol/L (0.5-2.0)
[2022-03-15] MEDS: Lactated Ringers 1,000 ML 999 ML IV ×2 (15:00→16:13)
[2022-03-15 15:01] VITALS: BP 129/80; PULSE 109; RESP 16; O2SAT 100
--- NOTE | 2022-03-15 15:38 | ECG_ITS ---
Test Reason : DKA Blood Pressure : / mmHG Vent. Rate : 095 BPM Atrial Rate : 095 BPM P-R Int : 142 ms QRS Dur : 086 ms QT Int : 332 ms P-R-T Axes : 031 033 028 degrees QTc Int : 417 ms Normal sinus rhythm with sinus arrhythmia Nonspecific T wave abnormality Borderline ECG When compared with ECG of 18-JAN-2022 15:00, T wave amplitude decreased anterior leads Referred By: Melisa Humphreys Electronically Signed By:WENDY BRAXTON
[2022-03-15] MEDS: Insulin Regular, Human 100 UNIT/ML 3 ML VIAL IVPUSH (15:45)
[2022-03-15 15:50] LABS: Glucose, Whole Blood 373 mg/dL (60-115)
[2022-03-15] MEDS: ondansetron HCL 4 MG/2 ML VIAL IVPUSH (16:12)
[2022-03-15 16:54] LABS: Glucose, Whole Blood 252 mg/dL (60-115)
[2022-03-15 18:19] LABS: Anion Gap 17 (12-20); Blood Urea Nitrogen 14 mg/dL (9-16); Calcium 9.8 mg/dL (8.4-10.2); Carbon Dioxide 26 mmol/L (22-29); Chloride 95 mmol/L (96-108); Estimated Glomerular Filt Rate > 60; Glucose Random 252 mg/dL (60-115); Potassium 3.7 mmol/L (3.3-5.1); Sodium 134 mmol/L (135-145)
--- NOTE | 2022-03-15 18:43 | P.HPHOSP_ITS ---
History of Present Illness Date of Service: 03/15/22 Attending physician on admission: Azalea Barney Chief Complaint: Nausea vomiting and abdominal 26-year-old gentleman with past medical history significant for insulin- dependent diabetes mellitus, gastroparesis, recurrent DKA due to noncompliance presented to [facility] with symptoms of nausea vomiting abdominal pain of greater than 24 hour duration patient has been drinking large quantities of Gatorade and other juices since was unable to keep solids down he also complained of polydipsia his glucometer read high blood sugars at home therefore came to the emergency room he denied associated fever chills, cough, shortness of breath, no urinary symptoms of urgency or frequency, in the emergency room patient noted to have an elevated blood sugar 677, sodium of 124 corrected sodium 133, potassium of 5.4 and anion gap 22 and creatinine of 1.49 patient treated in the emergency room with IV fluids, 5 units of IV insulin repeat blood sugars improved to 255 repeat BMP showed gap closed, WBC showed mild leukocytosis 11.7 ABGs revealed pH 7.46, patient now being admitted for close monitoring and treatment of DKA, and acute kidney injury Review of Systems Review of Systems: General no headache no dizziness no fever chills. CVS no chest pain, no palpitation. Respiratory no cough no sob. Gastrointestinal no nausea no vomiting, no abdominal pain Skin no rash Yes all other systems are reviewed and are negative [facility] Medical History Diabetes Diabetic keto-acidosis Esophageal ulcer Gastroparesis Leukocytosis Pertinent family history: Father is diseased due to stroke and is complication at 865 also had diabetes, mother alive has borderline diabetes Social History Household Members: None Housing: Apartment Do you presently have visiting nurse or other home services: No Alcohol intake: never Patient Tobacco Use Status: Never used Tobacco Substance Use Type: Marijuana Advance Directives: Yes Advance Directives on File: Yes Advance Directives Date on File: 01/22/21 service: No Current occupational status: employed Meds Allergies Allergy/AdvReac Type Severity Reaction Status Date / Time passion fruit [PASSION FRUIT] Allergy Unknown UNK Verified 03/15/22 11:10 Active Medications: Current Medications Acetaminophen (Acetaminophen 325 Mg Tablet) 650 mg PO Q6H PRN PRN Reason: Pain, Mild (Pain Scale 1-3) Insulin Human Lispro (Insulin Lispro 100 Unit/Ml 3 Ml Vial) 0 unit SUBCUT QIDACHS [facility]; Protocol Melatonin (Melatonin 3 Mg Tablet) 3 mg PO BEDTIME PRN PRN Reason: Insomnia Omeprazole (Omeprazole 20 Mg Capsule.Dr) 20 mg PO DAILY@0630 [facility] Ondansetron HCl (Ondansetron Hcl 4 Mg/2 Ml Vial) 4 mg IVPUSH Q8H PRN PRN Reason: Nausea and Vomiting Pharmacy Consult (Consult Rx Perform Med Rec) 1 each MISCELLANE ONCE PRN PRN Reason: Consult order Sertraline HCl (Sertraline Hcl 25 Mg Tablet) 25 mg PO DAILY [facility] Sertraline HCl (Sertraline Hcl 25 Mg Tablet) 25 mg PO DAILY [facility] Sodium Chloride (0.9 % Sodium Chloride Flush 3 Ml Syringe) 3 ml IVFLUSH QSHIFT [facility] Home Medications Medication Instructions Recorded Confirmed Last Taken Type sertraline 25 mg tablet 25 mg PO DAILY 12/28/21 03/15/22 Unknown History insulin NPH-regular 70-30 U-100 55 unit subcut BIDAC 03/15/22 03/15/22 Unknown History insulin 100 unit/mL subcutaneous pen (Novolin 70-30 FlexPen U-100 Insulin) insulin lispro 100 unit/mL See Rx Instructions .Route .COMPLEX 03/15/22 03/15/22 Unknown History subcutaneous solution pantoprazole 40 mg tablet,delayed 1 tab PO DAILY 03/15/22 03/15/22 Unknown History release Physical Exam Vital Signs and Narrative: Vital Signs: Last Vital Signs Temp 97.8 F 03/15/22 11:07 Pulse 109 H 03/15/22 15:01 Resp 16 03/15/22 15:01 BP 129/80 03/15/22 15:01 Pulse Ox 100 03/15/22 15:01 O2 Del Method 03/15/22 15:01 BMI result Body Mass Index 26.6 Const: Other: General awake alert times, resting comfortably in no acute distress. HEENT PERRLA Neck supple no JVD. CVS regular rate rhythm, Respiratory lungs clear to auscultation, no respiratory distress, no wheeze, no rhonchi. Gastrointestinal abdomen soft, nontender, bowel sounds audible, no guarding , no rigidity. Extremities no edema. Neuro nonfocal Skin no rash Psych appropriate affect Results Labs CBC and Chem 7: 03/15/22 11:24 03/15/22 17:54 Labs: Laboratory Results - last 24 hr 03/15/22 03/15/22 03/15/22 11:13 11:24 11:24 MCV 86.0 MCH 28.9 MCHC 33.6 RDW 12.8 Plt Count 264 MPV 10.3 Immature Gran % (Auto) 0.4 Neut % (Auto) 89.4 H Lymph % (Auto) 5.5 L [place] % (Auto) 4.6 Eos % (Auto) 0.0 Baso % (Auto) 0.1 Lymph # (Auto) 0.6 L [place] # (Auto) 0.5 Eos # (Auto) 0.0 Baso # (Auto) 0.0 Abs Immat Gran (auto) 0.05 H Absolute Neuts (auto) 10.5 H Absolute Nucleated RBC 0.000 Nucleated RBC % (auto) 0.0 VBG pH VBG pCO2 VBG pO2 VBG HCO3 VBG O2 Saturation VBG Base Excess Anion Gap 22 H Estim Creat Clear Calc 68.3 Estimated GFR 57 POC Glucose > 600 H* Random Glucose 677 H* Lactic Acid Calcium 9.5 D Magnesium 1.8 Total Bilirubin 0.9 AST 10 ALT 10 Alkaline Phosphatase 75 Total Protein 7.3 Albumin 4.6 D Lipase 11 Ethyl Alcohol < 10 Acetone, Qual Small H 03/15/22 03/15/22 03/15/22 14:19 14:21 14:25 MCV MCH MCHC RDW Plt Count MPV Immature Gran % (Auto) Neut % (Auto) Lymph % (Auto) [place] % (Auto) Eos % (Auto) Baso % (Auto) Lymph # (Auto) [place] # (Auto) Eos # (Auto) Baso # (Auto) Abs Immat Gran (auto) Absolute Neuts (auto) Absolute Nucleated RBC Nucleated RBC % (auto) VBG pH Cancelled 7.46 H VBG pCO2 Cancelled 31 VBG pO2 Cancelled 109 VBG HCO3 Cancelled 23 VBG O2 Saturation Cancelled 99.0 VBG Base Excess Cancelled 0.6 Anion Gap Estim Creat Clear Calc Estimated GFR POC Glucose Random Glucose Lactic Acid 1.6 Calcium Magnesium Total Bilirubin AST ALT Alkaline Phosphatase Total Protein Albumin Lipase Ethyl Alcohol Acetone, Qual 03/15/22 03/15/2203/15/22 15:23 16:50 17:54 MCV MCH MCHC RDW Plt Count MPV Immature Gran % (Auto) Neut % (Auto) Lymph % (Auto) [place] % (Auto) Eos % (Auto) Baso % (Auto) Lymph # (Auto) [place] # (Auto) Eos # (Auto) Baso # (Auto) Abs Immat Gran (auto) Absolute Neuts (auto) Absolute Nucleated RBC Nucleated RBC % (auto) VBG pH VBG pCO2 VBG pO2 VBG HCO3 VBG O2 Saturation VBG Base Excess Anion Gap 17 Estim Creat Clear Calc 105.0 Estimated GFR > 60 POC Glucose 373 H* 252 H Random Glucose 252 H D Lactic Acid Calcium 9.8 Magnesium Total Bilirubin AST ALT Alkaline Phosphatase Total Protein Albumin Lipase Ethyl Alcohol Acetone, Qual Assessment and Plan (1) DKA (diabetic ketoacidosis): Status: Acute (2) Acute kidney injury: Status: Acute Plan 26-year-old gentleman with underlying history of diabetes mellitus and poor compliance on insulin NPH 70/30, 60 units b.i.d. presented to [facility] with complaints of nausea, vomiting and abdominal pain diagnosed to have diabetic ketoacidosis treated in the emergency room with IV fluids IV insulin and now being admitted for continued monitoring and treatment. DKA History of Type 1 diabetes mellitus Treated with IV fluids and IV insulin blood sugars improved to 250, gap closed, will place on insulin sliding scale, point of care q.i.d./AC, diabetic diet and Lantus equal and to 70/30, Strongly recommend compliance with home medication Abdominal pain, nausea and vomiting improving continue antiemetic,ivf strongly recommend to abstain from marijuana since that can contribute to upper GI sym ptoms GISSELLE Due to above treated with IV fluids creatinine improved continue IV fluids, follow BMP History of depression Continue Zoloft DVT prophylaxis low risk Code status full code in my clinical judgment patient will need two night inpatient stay due to DKA requiring insulin treatment , and IV fluid Quality Stroke Does the patient have a stroke diagnosis?: No VTE Prior VTE?: No VTE Risk Level:: Medical - low VTE Device Contraindication: Treatment Not Indicated VTE Drug Contraindication: Treatment Not Indicated
[2022-03-15] MEDS: 0.9 % Sodium Chloride 1,000 ML 125 ML IVCONT (21:00)
[2022-03-15 21:50] LABS: Glucose, Whole Blood 162 mg/dL (60-115)
[2022-03-15 21:52] VITALS: BP 139/86; PULSE 112; RESP 16; TEMP 35.9; O2SAT 97
[2022-03-15] MEDS: 0.9 % Sodium Chloride Flush 3 ML SYRINGE IVFLUSH (22:13)
[2022-03-15] MEDS: Insulin Glargine,Hum.rec.anlog 100 UNIT/ML 10 ML VIAL 20 UNIT SUBCUT (22:13)
[2022-03-15] MEDS: Insulin Lispro 100 UNIT/ML 3 ML VIAL SUBCUT (22:13)
[2022-03-15 23:06] VITALS: BP 134/88; PULSE 81; RESP 16; TEMP 36.3; O2SAT 99
[2022-03-15] MEDS: oxyCODONE HCl Immed Release 5 MG TABLET PO (23:11)
[2022-03-16 01:23] LABS: COVID-19 Test Negative (Negative); IDNOW Serial# 9DB6401D
[2022-03-16 03:40] VITALS: BP 104/57; PULSE 73; RESP 16; TEMP 36.3; O2SAT 98
[2022-03-16] MEDS: 0.9 % Sodium Chloride 1,000 ML 125 ML IVCONT (05:29)
[2022-03-16] MEDS: Omeprazole 20 MG CAPSULE.DR PO (05:30)
[2022-03-16 07:09] VITALS: BP 128/78; PULSE 77; RESP 18; TEMP 36.3; O2SAT 99
[2022-03-16 07:38] LABS: Glucose, Whole Blood 62 mg/dL (60-115)
[2022-03-16] MEDS: Sertraline HCL 25 MG TABLET PO (07:56)
[2022-03-16 09:51] LABS: Anion Gap 16 (12-20); Blood Urea Nitrogen 10 mg/dL (9-16); Calcium 8.7 mg/dL (8.4-10.2); Carbon Dioxide 25 mmol/L (22-29); Chloride 102 mmol/L (96-108); Creatinine Clr Calc Pharmacy 117.1; Estimated Glomerular Filt Rate > 60; Glucose Random 112 mg/dL (60-115); Potassium 3.6 mmol/L (3.3-5.1); Sodium 139 mmol/L (135-145)
--- NOTE | 2022-03-16 10:00 | MHC.CM.PN ---
CM ATTEMPTED TO MEET W/PT HOWEVER PT CURRENTLY SHOWERING, CM TO REVISIT.
[2022-03-16] MEDS: oxyCODONE HCl Immed Release 5 MG TABLET PO (10:59)
[2022-03-16 11:08] LABS: Glucose, Whole Blood 120 mg/dL (60-115)
--- NOTE | 2022-03-16 13:15 | MHC.CLN ---
RE: CONSULT ADDED GLUCERNA BID PER PT'S REQUEST FOR NUTRITION SUPPLEMENT MONITOR BS AND PO INTAKE CLOSELY
--- NOTE | 2022-03-16 13:44 | P.PNIM_ITS ---
Subjective Subjective Date of Service: 03/16/22 Interval History: DKA, abdominal pain Review of Systems Still has abdominal pain, nauseated Denies any fever or chills Physical Exam Vital Signs: Vital Signs: Last Vital Signs Temp 97.4 F 03/16/22 07:09 Pulse 77 03/16/22 07:09 Resp 18 03/16/22 07:09 BP 128/78 03/16/22 07:09 Pulse Ox 99 03/16/22 07:09 O2 Del Method 03/16/22 07:09 BMI result Body Mass Index 26.6 General awake alert times, resting comfortably in no acute distress.? CVS? regular rate rhythm,s1s2 heard Respiratory lungs clear to auscultation, no respiratory distress, no wheeze, no rhonchi. Gastrointestinal abdomen soft, epigastric discomfort, bowel sounds audible, no guarding , no rigidity. Extremities no edema. Neuro nonfocal Skin no rash Psych appropriate affect Objective Data Active Medications Acetaminophen (Acetaminophen 325 Mg Tablet) 650 mg PO Q6H PRN PRN Reason: Pain, Mild (Pain Scale 1-3) Dextrose (Dextrose 50 % 25 Gm/50 Ml Syringe) 25 gm IVPUSH Q15M PRN; Protocol PRN Reason: per Hypoglycemia Standing Ord. Glucose (Glucose Gel 15 Gm Gel..Gram.) 15 gm PO Q15M PRN; Protocol PRN Reason: per Hypoglycemia Standing Ord. Insulin Glargine (Insulin Glargine,Hum.Rec.Anlog 100 Unit/Ml 10 Ml Vial) 20 unit SUBCUT BID [facility] Last Admin: 03/15/22 22:13 Dose: 20 unit Documented By: JOSELITO Insulin Human Lispro (Insulin Lispro 100 Unit/Ml 3 Ml Vial) 0 unit SUBCUT QIDACHS [facility]; Protocol Last Admin: 03/16/22 11:07 Dose: Not Given Documented By: SUBHA Non-Admin Reason: No Insulin Coverage Melatonin (Melatonin 3 Mg Tablet) 3 mg PO BEDTIME PRN PRN Reason: Insomnia Omeprazole (Omeprazole 20 Mg Capsule.) 20 mg PO DAILY@0630 [facility] Last Admin: 03/16/22 05:30 Dose: 20 mg Documented By: JOSELITO Ondansetron HCl (Ondansetron Hcl 4 Mg/2 Ml Vial) 4 mg IVPUSH Q8H PRN PRN Reason: Nausea and Vomiting Pharmacy Consult (Consult Rx Perform Med Rec) 1 each MISCELLANE ONCE PRN PRN Reason: Consult order Sertraline HCl (Sertraline Hcl 25 Mg Tablet) 25 mg PO DAILY [facility] Last Admin: 03/16/22 07:56 Dose: 25 mg Documented By: SUBHA Sodium Chloride (0.9 % Sodium Chloride Flush 3 Ml Syringe) 3 ml IVFLUSH QSHIFT [facility] Last Admin: 03/16/22 07:56 Dose: Not Given Documented By: SUBHA Non-Admin Reason: IV Running Labs CBC & Chem 7: 03/15/22 11:24 03/16/22 08:56 Labs: Laboratory Results - last 24 hr 03/15/22 03/15/22 03/15/22 11:13 11:24 14:19 VBG pH Cancelled VBG pCO2 Cancelled VBG pO2 Cancelled VBG HCO3 Cancelled VBG O2 Saturation Cancelled VBG Base Excess Cancelled Anion Gap Estim Creat Clear Calc Estimated GFR POC Glucose > 600 H* Random Glucose Lactic Acid Calcium Magnesium 1.8 Lipase 11 COVID-19 (EARLINE) COVIDAviacomm 03/15/22 03/15/22 03/15/22 14:21 14:25 15:23 VBG pH 7.46 H VBG pCO2 31 VBG pO2 109 VBG HCO3 23 VBG O2 Saturation 99.0 VBG Base Excess 0.6 Anion Gap Estim Creat Clear Calc Estimated GFR POC Glucose 373 H* Random Glucose Lactic Acid 1.6 Calcium Magnesium Lipase COVID-19 (EARLINE) COVIDAviacomm 03/15/22 03/15/22 03/15/22 16:50 17:54 21:46 VBG pH VBG pCO2 VBG pO2 VBG HCO3 VBG O2 Saturation VBG Base Excess Anion Gap 17 Estim Creat Clear Calc 105.0 Estimated GFR > 60 POC Glucose 252 H 162 H Random Glucose 252 H D Lactic Acid Calcium 9.8 Magnesium Lipase COVID-19 (EARLINE) [facility]viac[facility] 03/16/22 03/16/22 03/16/22 00:55 07:05 08:56 VBG pH VBG pCO2 VBG pO2 VBG HCO3 VBG O2 Saturation VBG Base Excess Anion Gap 16 Estim Creat Clear Calc 117.1 Estimated GFR > 60 POC Glucose 62 Random Glucose 112 D Lactic Acid Calcium 8.7 D Magnesium Lipase COVID-19 (EARLINE) Negative COVID-19 Clin Com See Note 03/16/22 11:04 VBG pH VBG pCO2 VBG pO2 VBG HCO3 VBG O2 Saturation VBG Base Excess Anion Gap Estim Creat Clear Calc Estimated GFR POC Glucose 120 H Random Glucose Lactic Acid Calcium Magnesium Lipase COVID-19 (EARLINE) COVID-19 Clin Com Assessment and Plan (1) DKA (diabetic ketoacidosis): Status: Acute (2) Abdominal pain: Status: Acute Plan 26-year-old gentleman with underlying history of diabetes mellitus and poor compliance on insulin NPH 70/30, 60 units b.i.d. presented to [facility] with complaints of nausea, vomiting and abdominal pain diagnosed to have diabetic ketoacidosis treated in the emergency room with IV fluids IV insulin and now being admitted for continued monitoring and treatment. DKA: fs flactuatin(60-120) History of Type 1 diabetes mellitus Treated with IV fluids and IV insulin blood sugars improved to 250, gap closed, will place on insulin sliding scale, point of care q.i.d./AC, diabetic diet and hold Lantus , continue fs with sliding scale , if fingersticks improve further we will introduce back Lantus Strongly recommend compliance with home medication Abdominal pain, nausea and vomiting improving continue antiemetic,ivf strongly recommend to abstain from marijuana since that can contribute to upper GI symptoms GISSELLE Due to above treated with IV fluids creatinine improved. History of depression Continue Zoloft DVT prophylaxis low risk Code status full code inpatient need : diabetes is fluctuating fingersticks, abdominal pain. Quality Stroke Does the patient have a stroke diagnosis?: No VTE Prior VTE?: No VTE Risk Level:: Medical - low VTE Device Contraindication: Treatment Not Indicated VTE Drug Contraindication: Treatment Not Indicated
[2022-03-16 15:12] VITALS: BP 148/75; PULSE 62; RESP 20; TEMP 36.1; O2SAT 97
--- NOTE | 2022-03-16 15:49 | MHC.CM.PN ---
EMR REVIEWED, PT ADMITTED W/ABD PAIN/NV, PT FOUND TO BE IN KETOACIDOSIS, CM MET W/PT AND PT'S MOTHER WAS AT BEDSIDE, PT REPORTS HE LIVES ALONE IN AN APT, PT WORKS AT [employer], PT REPORTS HE USES DIABETIC SUPPLIES HIS ONLY DME AND HAS NO HOME SERVICES, PT VERIFIES MODERNA X2, PCP ON FILE IS CORRECT AND PROVIDED W/EDUCATION ON HCP'S HOWEVER DECLINES TO COMPLETE AT THIS TIME. PT WILL NOTIFY CM IF HE CHANGES HIS MIND. D/C PLAN: HOME NO SERVICES W/FAMILY FOR TRANSPORT.
[2022-03-16 16:08] LABS: Glucose, Whole Blood 179 mg/dL (60-115)
[2022-03-16] MEDS: Insulin Lispro 100 UNIT/ML 3 ML VIAL SUBCUT ×2 (17:06→20:04)
[2022-03-16] MEDS: 0.9 % Sodium Chloride Flush 3 ML SYRINGE IVFLUSH (17:09)
[2022-03-16 19:18] VITALS: BP 126/76; PULSE 95; RESP 20; TEMP 36.8; O2SAT 99
[2022-03-16 19:47] LABS: Glucose, Whole Blood 161 mg/dL (60-115)
[2022-03-16] MEDS: Acetaminophen 325 MG TABLET 650 MG PO (20:11)
[2022-03-16 23:20] VITALS: BP 135/70; PULSE 78; RESP 17; TEMP 36.7; O2SAT 98
[2022-03-17] MEDS: 0.9 % Sodium Chloride Flush 3 ML SYRINGE IVFLUSH ×2 (00:56→10:11)
[2022-03-17 03:38] VITALS: BP 145/81; PULSE 92; RESP 16; TEMP 36.9; O2SAT 98
[2022-03-17 07:28] LABS: Glucose, Whole Blood 287 mg/dL (60-115)
[2022-03-17 07:33] VITALS: BP 143/83; PULSE 80; RESP 16; TEMP 36.8; O2SAT 99
[2022-03-17] MEDS: ondansetron HCL 4 MG/2 ML VIAL IVPUSH (10:11)
[2022-03-17 11:14] LABS: Glucose, Whole Blood 265 mg/dL (60-115)
[2022-03-17 11:16] VITALS: BP 145/93; PULSE 90; RESP 17; TEMP 36.8; O2SAT 98
--- NOTE | 2022-03-17 11:46 | P.DS_ITS ---
DS: Providers Provider Date of Service: 03/17/22 Date of admission: 03/15/22 18:39 Date of discharge: 03/17/22 Primary care physician: Papi Olivo MD DS: Diagnosis Discharge Diagnosis (1) DKA (diabetic ketoacidosis): Status: Acute (2) Abdominal pain: Status: Acute DS: Summary Hospital Course Hospital Course: 26-year-old gentleman with underlying history of diabetes mellitus and poor compliance on insulin NPH 70/30, 60 units b.i.d. presented to [facility] with complaints of nausea, vomiting and abdominal pain diagnosed to have diabetic ketoacidosis treated in the emergency room with IV fluids IV insulin and now being admitted for continued monitoring and treatment. Hospital course: Patient was admitted DKA: Started on IV insulin and fluids seems to be improved, gap is closed-fingersticks are also improving ,patient is eating also. Patient admitted for DKA(diabetic ketoacidosis)-treated with insulin IV fluid seems to be improved. Advised to monitor fingersticks at home and continue home insulin regimen, strongly advised for diabetic education and diet. Follow-up with PCP in 1 week. Above management discussed with the patient in detail length he understand and in agreement with the above plan, time spent 50 minutes and 50% time spent on counseling. Significant findings: As above. Procedures performed: None. Treatment and response: As above. Complications: None. Time Spent with Patient Time attestation: Total time spent providing and/or coordinating discharge services: Discharge coordination time: Greater than 30 minutes Quality: Safe Use of Opioids Does Pt have an Active Cancer Diagnosis on the Problem List?: No Quality: Stroke Does the patient have a stroke diagnosis?: No Physical Exam Vital Signs: Vital Signs: Last Vital Signs Temp 98.2 F 03/17/22 11:16 Pulse 90 03/17/22 11:16 Resp 17 03/17/22 11:16 BP 145/93 H 03/17/22 11:16 Pulse Ox 98 03/17/22 11:16 O2 Del Method 03/17/22 11:16 BMI result Body Mass Index 26.6 General awake alert times, resting comfortably in no acute distress.? CVS? regular rate rhythm,s1s2 heard Respiratory lungs clear to auscultation, no respiratory distress, no wheeze, no rhonchi. Gastrointestinal abdomen soft, nd , bowel sounds audible, no guarding , no rigidity. Extremities no edema. Neuro nonfocal Skin no rash Psych appropriate affect DS: Data Data Completed and Pending Completed studies during hospitalization [Text1]: Procedures Excision of Stomach, Pylorus, Via Natural or Artificial Opening Endoscopic, Diagnostic (06/22/21) Labs on day of discharge: Laboratory Results - last 24 hr 03/16/22 03/16/22 03/17/22 15:15 19:23 07:22 POC Glucose 179 H 161 H 287 H 03/17/22 11:00 POC Glucose 265 H 03/15/22 03/15/22 03/15/22 ? 11:13 11:24 14:19 VBG pH ? ? ?Cancelled VBG pCO2 ? ? ?Cancelled VBG pO2 ? ? ?Cancelled VBG HCO3 ? ? ?Cancelled VBG O2 Saturation ? ? ?Cancelled D VBG Base Excess ? ? ?Cancelled Anion Gap ? ? ? Estim Creat Clear Calc ? ? ? Estimated GFR ? ? ? POC Glucose ?> 600 H* ? ? Random Glucose ? ? ? Lactic Acid ? ? ? Calcium ? ? ? Magnesium ? ?1.8 ? Lipase ? ?11 ? COVID-19 (EARLINE) ? ? ? COVID-19 Clin Com ? 03/15/22 03/15/22 03/15/22 ? 14:21 14:25B 15:23 VBG pH ? ?7.46 H ? VBG pCO2 ? ?31 ? VBG pO2 ? ?109 ? VBG HCO3 ? ?23 ? VBG O2 Saturation ? ?99.0 ? VBG Base Excess ? ?0.6 ? Anion Gap ? ? ? Estim Creat Clear Calc ? ? ? Estimated GFR ? ? ? POC Glucose ? ? ?373 H* Random Glucose ? ? ? Lactic Acid ?1.6 ? ? Calcium ? ? ? Magnesium ? ? ? Lipase ? ? ? COVID-19 (EARLINE) ? ? ? COVID-19 Clin Com ? 03/15/22 03/15/22 03/15/22 ? 16:50 17:54 21:46 VBG pH ? ? ? VBG pCO2 ? ? ? VBG pO2 ? ? ? VBG HCO3 ? ? ? VBG O2 Saturation ? ? ? VBG Base Excess ? ? ? Anion Gap ? ?17 ? Estim Creat Clear Calc ?B ?105.0 ? Estimated GFR ? ?> 60 ? POC Glucose ?252 H ? ?162 H Random Glucose ? ?252 H D ? Lactic Acid ? ? ? Calcium ? ?9.8 ? Magnesium ? ? ? Lipase ? ? ? COVID-19 (EARLINE) ? ? ? COVID-19 Clin Com ? ?B ? ? 03/16/22 03/16/22 03/16/22 ? 00:55 07:05 08:56 VBG pH ? ? ? VBG pCO2 ? ? ? VBG pO2 ? ? ? VBG HCO3 ? ? ? VBG O2 Saturation ? ? ? VBG Base Excess ? ? ? Anion Gap ? ? ?16 Estim Creat Clear Calc ? ? ?117.1 Estimated GFR ? ? ?> 60 POC Glucose ? ?62 ? Random Glucose ? ? ?112? D Lactic Acid ? ? ? Calcium ? ? ?8.7? D Magnesium ? ? ? Lipase ? ? ? COVID-19 (EARLINE) ?Negative ? ? COVID-19 Clin Com ?See Note ? ? ? 03/16/22 ? 11:04 VBG pH ? VBG pCO2 ? VBG pO2 ? VBG HCO3 ? VBG O2 Saturation ? VBG Base Excess ? Anion Gap ? Estim Creat Clear Calc ? Estimated GFR ? POC Glucose ?120 H Random Glucose ? Lactic Acid ? Calcium ? Magnesium ? Lipase ? COVID-19 (EARLINE) ? COVID-19 Clin Com ? Discharge Plan Discharge Patient Disposition: Home, Self-Care Discharge Diagnosis: DKA Referrals: Papi Olivo MD [Primary Care Provider] - 1 Week Discharge Medications: Continued sertraline 25 mg tablet 25 mg PO DAILY pantoprazole 40 mg tablet,delayed release (DR/EC) 1 tab PO DAILY insulin lispro 100 unit/mL solution See Rx Instructions .ROUTE .COMPLEX Rx Instructions: to be used per insulin pump 110 to 120 units per day Novolin 70-30 FlexPen U-100 100 unit/mL (70-30) insulin pen 55 unit subcut BIDAC Discharge Orders: Discharge Order (Routine); Ordered 03/17/22 Ordered By: Davy Carlisle Diet: Advance to usual diet Activity on Discharge: As tolerated Stand Alone Forms: Patient Portal Discharge page Care Plan Goals: Patient admitted for DKA(diabetic ketoacidosis)-treated with insulin IV fluid seems to be improved. Advised to monitor fingersticks at home and continue home insulin regimen, venancio read advised for diabetic education and diet. Follow-up with PCP in 1 week. Health Concerns: monitor fingersticks at home Strongly advised diabetic diet and home regimen compliance. If new abdominal pain or nausea or vomiting or fever or any new symptoms please go to the nearest emergency room for further evaluation. Plan of Treatment: As above. Assessment: As above. Patient Instructions: Diabetic Ketoacidosis (DC), Diabetic Ketoacidosis (GEN)
== END 2022-03-17 13:35 | disposition home or self-care (01) | DRG 420 ==
LOC: HO.ED 17:27 → HO.EDOVER 19:16 → HO.S3 19:26
PROVIDERS: Physician Assistant; Admitting Provider Hospitalist; Emergency Provider Emergency Medicine; PCP Internal Medicine; Visit Provider Internal Medicine
DX: E11.10 Type 2 diabetes mellitus with ketoacidosis without coma (principal); N17.9 Acute kidney failure, unspecified; F32.A Depression, unspecified; E86.0 Dehydration; E87.5 Hyperkalemia; Z20.822 Contact with and (suspected) exposure to COVID-19; Z91.19 Patient's noncompliance with other medical treatment and regimen; Z79.4 Long term (current) use of insulin; Z79.899 Other long term (current) drug therapy
CPT/HCPCS: 36415; 80048; 80053; 82009; 82077; 82803; 82947; 83605; 83690; 83735; 85025; 87635; 93005; 96361; 96374; 96375; 99285; J2405

== ENCOUNTER 2022-04-04 12:32 | Emergency (ER) | payer OTHER, SELFPAY ==
[2022-04-04 12:37] VITALS: BP 151/114; PULSE 93; RESP 18; TEMP 37.1; O2SAT 98; BMI 25.8
[2022-04-04 13:08] LABS: Glucose, Whole Blood 168 mg/dL (60-115)
--- NOTE | 2022-04-04 13:16 | ED.GENADULT ---
HPI - General Adult General Chief complaint: Abdominal Pain Stated complaint: Dehydrated/Vomiting (diabetic) Time Seen by Provider: 04/04/22 13:15 Source: patient Mode of arrival: ambulatory Limitations: no limitations History of Present Illness HPI narrative: 26-year-old male with past medical history of diabetes, diabetic gastroparesis, recurrent DKA presented to the emergency room for 3 days of nausea and vomiting with abdominal cramps for the past 3 days. Patient had similar symptoms in the past several times which was related to diabetic gastroparesis. Patient is compliant with his medication, declined any recent travel, no sick contacts, no recent use of antibiotic. Related Data Home Medications Medication Instructions Recorded Confirmed sertraline 25 mg tablet 25 mg PO DAILY 12/28/21 03/15/22 insulin NPH-regular 70-30 U-100 55 unit subcut BIDAC 03/15/22 03/15/22 insulin 100 unit/mL subcutaneous pen (Novolin 70-30 FlexPen U-100 Insulin) insulin lispro 100 unit/mL See Rx Instructions .Route .COMPLEX 03/15/22 03/15/22 subcutaneous solution pantoprazole 40 mg tablet,delayed 1 tab PO DAILY 03/15/22 03/15/22 release Allergies Allergy/AdvReac Type Severity Reaction Status Date / Time passion fruit [PASSION FRUIT] Allergy Unknown UNK Verified 03/15/22 11:10 Review of Systems Review of Systems: All other systems are reviewed and are negative Constitutional: Reports as per HPI and Reports no additional constitutional complaints Eyes: Reports as per HPI and Reports no additional eye complaints Reports system reviewed and no additional complaints, except as documented Cardiovascular: Reports as per HPI and Reports no additional cardiovascular complaints Respiratory: Reports as per HPI and Reports no additional respiratory complaints Gastrointestinal: Reports as per HPI and Reports no additional gastrointestinal complaints Genitourinary: Reports no additional female genitourinary complaints Musculoskeletal: Reports no additional musculoskeletal complaints Skin/Breast: Reports system reviewed and no additional complaints, except as docu Psychiatric: Reports no additional psychiatric complaints Endocrine: Reports no additional endocrine complaints Hematologic/Lymphatic: Reports no additional hematologic/lymphatic complaints Allergic/Immunologic: Reports no additional allergic/immunologic complaints Reports system reviewed and no additional complaints, except as documented and Reports Abnormal speech present [facility] Past Medical History Medical History Diabetes Diabetic keto-acidosis Esophageal ulcer Gastroparesis Leukocytosis Social History Social History Household Members: None Housing: Apartment Do you presently have visiting nurse or other home services: No Alcohol intake: never Patient Tobacco Use Status: Never used Tobacco Substance Use Type: Marijuana Advance Directives: Yes Advance Directives on File: Yes Advance Directives Date on File: 01/22/21 service: No Current occupational status: employed Physical Exam ED Vital Signs: Vital Signs - 24 hr 04/04/22 12:37 04/04/22 15:17 Temperature 98.7 F 98.3 F Pulse Rate 93 63 Respiratory Rate 18 16 Blood Pressure 151/114 H 146/97 H Pulse Oximetry 98 100 Oxygen Delivery Method Room Air Room Air BMI result Body Mass Index 25.8 Vital signs have been reviewed as appeared to be correct. Blood pressure normal. Heart rate normal. Respiration rate normal. Temperature normal. Oxygen saturation normal. Appearance: Alert. Oriented X3. No acute distress. Head: Normal external exam. Normocephalic. Atraumatic. No [place] signs noted. No raccoon eyes noted Eyes: PERRLA. EOMI. Conjunctiva and sclera normal. Eyelids normal. ENT: TM's Normal. Pharynx normal. Uvula midline. Moist mucous membranes. No trismus noted. No drooling noted. No muffled voice noted. Neck: Normal inspection. Neck supple. FROM. No adenopathy. Thyroid Normal. No meningeal signs. No neck mass noted. CVS: Normal heart rate and rhythm. Heart sound normal. No murmurs noted. Pulses normal throughout. Respiratory: No respiratory distress. Painless inspiration. Breath sounds normal. No wheezes/rales/rhonchi noted. Chest nontender. No accessory muscle usage noted or decreased air movement noted. Abdomen: Soft and nontender. Bowel sounds normal in all 4 quadrants. No distention noted. No organomegaly noted. No visible injury noted. Back: No CVA tenderness. Full range of motion noted. Skin: Skin warm and dry. Normal skin color. Normal skin turgor. No rashes/lesions/lacerations noted. Extremities: No lower extremity edema. Extremities exhibit normal range of motion. Extremities nontender. Neuro: Oriented X 3. Cranial nerve exam: II-XII are grossly intact No motor deficit. No sensory deficit. Reflexes normal. Course Course Course Narrative: 26-year-old male with type 1 diabetes insulin-dependent multiple history of DKA, diabetic gastroparesis came in for vomiting unable to tolerate p.o. intake, labs and physical exam revealing no DKA, patient feels better and able to tolerate p.o. intake now, nausea and vomiting. Repeat abdominal exam show no pain or tenderness, no guarding, no rebound tenderness. Medical Decision Making Medical Records Medical records reviewed: Yes I reviewed the patient's medical records. Lab Data Lab results reviewed: Yes I reviewed the patient's lab results. Result diagrams: 04/04/22 13:37 04/04/22 13:37 Labs: Lab Results 04/04/22 04/04/22 04/04/22 Range/Units 13:03 13:37 13:37 WBC 6.9 (4.8-10.8) X10*3/uL RBC 5.19 (4.60-5.80) X10*6/uL Hgb 15.2 (14.0-18.0) g/dl Hct 44.0 (42.0-52.0) % MCV 84.8 (80.0-98.0) fL MCH 29.3 (27.0-33.0) pg MCHC 34.5 (31.0-36.0) g/dl RDW 12.2 (11.0-16.0) % Plt Count 304 (160-400) X10*3/uL MPV 9.7 (9.4-12.4) fL Immature Gran % (Auto) 0.3 (0.0-0.4) % Neut % (Auto) 68.5 (45-73) % Lymph % (Auto) 18.9 L (20-40) % [place] % (Auto) 11.6 H (2-11) % Eos % (Auto) 0.3 (0-4) % Baso % (Auto) 0.4 (0-2) % Lymph # (Auto) 1.3 (1.2-4.9) X10*3/uL [place] # (Auto) 0.8 (0.1-1.2) X10*3/uL Eos # (Auto) 0.0 (0.0-0.4) X10*3/uL Baso # (Auto) 0.0 (0.0-0.2) X10*3/uL Abs Immat Gran (auto) 0.02 (0.00-0.03) X10*3/uL Absolute Neuts (auto) 4.7 (2.0-8.3) x10*3/uL Absolute Nucleated RBC 0.000 (0.0-0.012) X10*3/uL Nucleated RBC % (auto) 0.0 (0.0-0.2) /100WBC Sodium 136 (135-145) mmol/L Potassium 3.7 (3.3-5.1) mmol/L Chloride 95 L (96-108) mmol/L Carbon Dioxide 31 H (22-29) mmol/L Anion Gap 14 (12-20) BUN 9 (9-16) mg/dL Creatinine 1.03 (0.5-1.4) mg/dL Estim Creat Clear Calc 98.9 Estimated GFR > 60 POC Glucose 168 H (60-115) mg/dL Random Glucose 167 H D (60-115) mg/dL Calcium 9.1 (8.4-10.2) mg/dL Total Bilirubin 0.5 (0.0-1.0) mg/dL Direct Bilirubin 0.2 (0.0-0.5) mg/dL AST 11 (5-37) U/L ALT 8 (0-40) U/L Alkaline Phosphatase 65 (39-117) U/L Total Protein 6.7 (6.5-8.0) g/dL Albumin 4.0 (3.5-5.0) g/dL Lipase 11 (8-78) U/L Acetone, Qual Negative (Negative) Discharge Plan Discharge Clinical Impression: Diabetic gastroparesis, Intractable vomiting Patient Disposition: Home, Self-Care Instructions: Gastroparesis (ED) Prescriptions: No Action sertraline 25 mg tablet 25 mg PO DAILY pantoprazole 40 mg tablet,delayed release (DR/EC) 1 tab PO DAILY insulin lispro 100 unit/mL solution See Rx Instructions .ROUTE .COMPLEX Rx Instructions: to be used per insulin pump 110 to 120 units per day Novolin 70-30 FlexPen U-100 100 unit/mL (70-30) insulin pen 55 unit subcut BIDAC Referrals: Papi Olivo MD [Primary Care Provider] -
[2022-04-04] MEDS: Magnesium Hydrox/Alum Hydrox 30 ML ORAL.SUSP PO (13:40)
[2022-04-04] MEDS: 0.9 % Sodium Chloride 1,000 ML 999 ML IV (13:40)
[2022-04-04 13:41] LABS: MANUAL DIFF FLAG NO
[2022-04-04] MEDS: Famotidine/PF 20 MG/2 ML VIAL IVPUSH (13:41)
[2022-04-04] MEDS: ondansetron HCL 4 MG/2 ML VIAL IVPUSH (13:41)
[2022-04-04 13:43] LABS: Basophils Percent Auto 0.4 % (0-2); Eosinophils Percent Auto 0.3 % (0-4); Hemoglobin 15.2 g/dl (14.0-18.0); Imm Gran Abs Auto 0.02 X10*3/uL (0.00-0.03); Imm Gran Pct Auto 0.3 % (0.0-0.4); Lymphocytes Absolute Auto 1.3 X10*3/uL (1.2-4.9); Lymphocytes Percent Auto 18.9 % (20-40); Mean Corpuscular HGB Conc 34.5 g/dl (31.0-36.0); Mean Corpuscular Hemoglobin 29.3 pg (27.0-33.0); Mean Corpuscular Volume 84.8 fL (80.0-98.0); Mean Platelet Volume 9.7 fL (9.4-12.4); Monocytes Absolute Auto 0.8 X10*3/uL (0.1-1.2); Monocytes Percent Auto 11.6 % (2-11); Neutrophils Absolute Auto 4.7 x10*3/uL (2.0-8.3); Neutrophils Percent Auto 68.5 % (45-73); Platelet Count 304 X10*3/uL (160-400); Red Blood Count 5.19 X10*6/uL (4.60-5.80); Red Cell Distribution Width 12.2 % (11.0-16.0); White Blood Count 6.9 X10*3/uL (4.8-10.8)
[2022-04-04 13:59] LABS: Alanine Aminotransferase 8 U/L (0-40); Alkaline Phosphatase 65 U/L (39-117); Anion Gap 14 (12-20); Aspartate Amino Transferase 11 U/L (5-37); Bilirubin Direct 0.2 mg/dL (0.0-0.5); Bilirubin Total 0.5 mg/dL (0.0-1.0); Blood Urea Nitrogen 9 mg/dL (9-16); Calcium 9.1 mg/dL (8.4-10.2); Carbon Dioxide 31 mmol/L (22-29); Chloride 95 mmol/L (96-108); Creatinine Clr Calc Pharmacy 98.9; Estimated Glomerular Filt Rate > 60; Glucose Random 167 mg/dL (60-115); Lipase 11 U/L (8-78); Potassium 3.7 mmol/L (3.3-5.1); Sodium 136 mmol/L (135-145); Total Protein 6.7 g/dL (6.5-8.0)
[2022-04-04 14:11] LABS: Acetone, serum QL Negative (Negative)
[2022-04-04 15:17] VITALS: BP 146/97; PULSE 63; RESP 16; TEMP 36.8; O2SAT 100
[2022-04-04] MEDS: Lidocaine HCl Viscous 2 % 15 ML SOLUTION MUCOUS MEM (16:17)
[2022-04-04] MEDS: Magnesium Hydrox/Alum Hydrox 30 ML ORAL.SUSP 15 ML PO (16:17)
[2022-04-04 16:21] VITALS: BP 148/106; PULSE 92; RESP 20; O2SAT 92
== END 2022-04-04 16:28 | disposition home or self-care (01) ==
PROVIDERS: Emergency Provider Emergency Medicine; PCP Internal Medicine
DX: K31.84 Gastroparesis (principal); E11.43 Type 2 diabetes mellitus with diabetic autonomic (poly)neuropathy; R10.9 Unspecified abdominal pain; E86.0 Dehydration; Z79.4 Long term (current) use of insulin; Z79.899 Other long term (current) drug therapy
CPT/HCPCS: 36415; 80048; 80076; 82009; 82947; 83690; 85025; 96374; 96375; 99284; J2405

== ENCOUNTER 2022-04-12 19:47 | Emergency (ER) | payer OTHER, SELFPAY ==
[2022-04-12 19:52] VITALS: BP 154/101; PULSE 87; RESP 16; TEMP 36.8; O2SAT 97; BMI 25.8
[2022-04-12 20:11] LABS: Glucose, Whole Blood 393 mg/dL (60-115)
[2022-04-12 20:12] LABS: MANUAL DIFF FLAG NO
[2022-04-12 20:15] LABS: Basophils Percent Auto 0.3 % (0-2); Eosinophils Percent Auto 0.3 % (0-4); Hematocrit 44.7 % (42.0-52.0); Hemoglobin 14.9 g/dl (14.0-18.0); Imm Gran Abs Auto 0.02 X10*3/uL (0.00-0.03); Imm Gran Pct Auto 0.2 % (0.0-0.4); Lymphocytes Absolute Auto 1.4 X10*3/uL (1.2-4.9); Lymphocytes Percent Auto 15.7 % (20-40); Mean Corpuscular HGB Conc 33.3 g/dl (31.0-36.0); Mean Corpuscular Hemoglobin 28.7 pg (27.0-33.0); Mean Corpuscular Volume 86.1 fL (80.0-98.0); Mean Platelet Volume 10.1 fL (9.4-12.4); Monocytes Absolute Auto 0.9 X10*3/uL (0.1-1.2); Monocytes Percent Auto 10.2 % (2-11); Neutrophils Absolute Auto 6.6 x10*3/uL (2.0-8.3); Neutrophils Percent Auto 73.3 % (45-73); Platelet Count 276 X10*3/uL (160-400); Red Blood Count 5.19 X10*6/uL (4.60-5.80); Red Cell Distribution Width 12.6 % (11.0-16.0); White Blood Count 8.9 X10*3/uL (4.8-10.8)
[2022-04-12 20:17] LABS: VBG Base Excess 2.3 mmol/L; VBG HCO3 25 mmol/L (22-26); VBG pCO2 34 mmHg; VBG pH 7.47 (7.32-7.43); VBG pO2 66 mmHg
[2022-04-12 20:17] LABS: Venous Blood Gas Refer to POC result
[2022-04-12 20:24] LABS: Acetone, serum QL Negative (Negative)
[2022-04-12 20:39] LABS: Alanine Aminotransferase 12 U/L (0-40); Albumin Level 4.4 g/dL (3.5-5.0); Alkaline Phosphatase 66 U/L (39-117); Anion Gap 18 (12-20); Aspartate Amino Transferase 13 U/L (5-37); Bilirubin Total 0.7 mg/dL (0.0-1.0); Blood Urea Nitrogen 11 mg/dL (9-16); Calcium 10.5 mg/dL (8.4-10.2); Carbon Dioxide 26 mmol/L (22-29); Chloride 92 mmol/L (96-108); Creatinine Clr Calc Pharmacy 83.5; Estimated Glomerular Filt Rate > 60; Glucose Random 447 mg/dL (60-115); Magnesium 1.7 mg/dL (1.6-2.6); Sodium 131 mmol/L (135-145); Total Protein 7.4 g/dL (6.5-8.0)
--- NOTE | 2022-04-12 20:49 | ED_ITS ---
HPI - General Adult General Chief complaint: General Medical Stated complaint: dehydration Time Seen by Provider: 04/12/22 19:57 Source: patient Mode of arrival: ambulatory Limitations: no limitations History of Present Illness HPI narrative: Patient able diabetic smokes marijuana comes here for 1 day of vomiting with feeling weak and epigastric pain patient vomited about 4 times unable to hold down any liquids no fever or chills patient had similar episodes in the past Related Data Home Medications Medication Instructions Recorded Confirmed sertraline 25 mg tablet 25 mg PO DAILY 12/28/21 03/15/22 insulin NPH-regular 70-30 U-100 55 unit subcut BIDAC 03/15/22 03/15/22 insulin 100 unit/mL subcutaneous pen (Novolin 70-30 FlexPen U-100 Insulin) insulin lispro 100 unit/mL See Rx Instructions .Route .COMPLEX 03/15/22 03/15/22 subcutaneous solution pantoprazole 40 mg tablet,delayed 1 tab PO DAILY 03/15/22 03/15/22 release Previous Rx's Medication Instructions Recorded prochlorperazine maleate 10 mg 10 mg PO Q6H PRN nausea and 04/13/22 tablet (Compazine) vomiting #30 tabs Allergies Allergy/AdvReac Type Severity Reaction Status Date / Time passion fruit [PASSION FRUIT] Allergy Unknown UNK Verified 04/12/22 19:52 Review of Systems Review of Systems: Yes all other systems are reviewed and are negative PMFSH Past Medical History Medical History Diabetes Diabetic keto-acidosis Esophageal ulcer Gastroparesis Leukocytosis Social History Social History Household Members: None Housing: Apartment Do you presently have visiting nurse or other home services: No Alcohol intake: never Patient Tobacco Use Status: Never used Tobacco Use of substances other than those prescribed or required for medical reasons: Yes Substance Use Type: Marijuana Substance Use Frequency: Daily Advance Directives: Yes Advance Directives on File: Yes Advance Directives Date on File: 01/22/21 service: No Current occupational status: employed Physical Exam ED Vital Signs: Vital Signs - 24 hr 04/12/22 19:52 04/12/22 21:26 04/12/22 23:53 Temperature 98.2 F 98.6 F 98.7 F Pulse Rate 87 92 91 Respiratory Rate 16 18 18 Blood Pressure 154/101 H 151/103 H 127/71 Pulse Oximetry 97 98 97 Oxygen Delivery Method Room Air Room Air Room Air BMI result Body Mass Index 25.8 Appearance: Alert. Oriented X3. No acute distress. Eyes: nopallor/icterus ENT: Pharynx normal. Oral Mucosa dry Neck: Normal inspection. Neck supple. CVS: Normal heart rate and rhythm. Pulses normal. Respiratory: No respiratory distress. Equal air entry bilateral, no wheezing/rales/rhonchi Abdomen: Soft mild epigastric tenderness Bowel sounds are present, no mass palpable, no CVA tenderness Skin: Skin warm and dry. Normal skin color. Normal skin turgor. Extremities: No lower extremity edema. No calf tenderness Neuro: Oriented X 3. No motor deficit. No sensory deficit.No cerebellar signs , cranial nerves II-XII intact Medical Decision Making MDM Narrative Medical decision making narrative: 0100Patient type 1 diabetic with gastroparesis with recurrent hospitalization fo r dehydration secondary to vomiting and DKA at this time patient does not have DKA received 2 L of fluid taking p.o. fluids now was given IV Zofran and chlorpromazine. Patient's blood sugar improved after insulin will discharge patient home Lab Data Lab results reviewed: Yes I reviewed the patient's lab results. Result diagrams: 04/12/22 20:07 04/12/22 20:07 Labs: Lab Results 04/12/22 04/12/22 04/12/22 Range/Units 20:07 20:07 20:07 WBC 8.9 (4.8-10.8) X10*3/uL RBC 5.19 (4.60-5.80) X10*6/uL Hgb 14.9 (14.0-18.0) g/dl Hct 44.7 (42.0-52.0) % MCV 86.1 (80.0-98.0) fL MCH 28.7 (27.0-33.0) pg MCHC 33.3 (31.0-36.0) g/dl RDW 12.6 (11.0-16.0) % Plt Count 276 (160-400) X10*3/uL MPV 10.1 (9.4-12.4) fL Immature Gran % (Auto) 0.2 (0.0-0.4) % Neut % (Auto) 73.3 H (45-73) % Lymph % (Auto) 15.7 L (20-40) % [place] % (Auto) 10.2 (2-11) % Eos % (Auto) 0.3 (0-4) % Baso % (Auto) 0.3 (0-2) % Lymph # (Auto) 1.4 (1.2-4.9) X10*3/uL [place] # (Auto) 0.9 (0.1-1.2) X10*3/uL Eos # (Auto) 0.0 (0.0-0.4) X10*3/uL Baso # (Auto) 0.0 (0.0-0.2) X10*3/uL Abs Immat Gran (auto) 0.02 (0.00-0.03) X10*3/uL Absolute Neuts (auto) 6.6 (2.0-8.3) x10*3/uL Absolute Nucleated RBC 0.000 (0.0-0.012) X10*3/uL Nucleated RBC % (auto) 0.0 (0.0-0.2) /100WBC VBG pH (7.32-7.43) VBG pCO2 mmHg VBG pO2 mmHg VBG HCO3 (22-26) mmol/L VBG O2 Saturation % VBG Base Excess mmol/L Sodium 131 L (135-145) mmol/L Potassium 5.0 D (3.3-5.1) mmol/L Chloride 92 L (96-108) mmol/L Carbon Dioxide 26 (22-29) mmol/L Anion Gap 18 (12-20) BUN 11 (9-16) mg/dL Creatinine 1.22 (0.5-1.4) mg/dL Estim Creat Clear Calc 83.5 Estimated GFR > 60 POC Glucose 393 H* (60-115) mg/dL Random Glucose 447 H* (60-115) mg/dL Calcium 10.5 H D (8.4-10.2) mg/dL Magnesium 1.7 (1.6-2.6) mg/dL Total Bilirubin 0.7 (0.0-1.0) mg/dL AST 13 (5-37) U/L ALT 12 (0-40) U/L Alkaline Phosphatase 66 (39-117) U/L Total Protein 7.4 (6.5-8.0) g/dL Albumin 4.4 (3.5-5.0) g/dL Acetone, Qual Negative (Negative) 04/12/22 04/12/22 04/12/22 Range/Units 20:11 21:43 23:29 WBC (4.8-10.8) X10*3/uL RBC (4.60-5.80) X10*6/uL Hgb (14.0-18.0) g/dl Hct (42.0-52.0) % MCV (80.0-98.0) fL MCH (27.0-33.0) pg MCHC (31.0-36.0) g/dl RDW (11.0-16.0) % Plt Count (160-400) X10*3/uL MPV (9.4-12.4) fL Immature Gran % (Auto) (0.0-0.4) % Neut % (Auto) (45-73) % Lymph % (Auto) (20-40) % [place] % (Auto) (2-11) % Eos % (Auto) (0-4) % Baso % (Auto) (0-2) % Lymph # (Auto) (1.2-4.9) X10*3/uL [place] # (Auto) (0.1-1.2) X10*3/uL Eos # (Auto) (0.0-0.4) X10*3/uL Baso # (Auto) (0.0-0.2) X10*3/uL Abs Immat Gran (auto) (0.00-0.03) X10*3/uL Absolute Neuts (auto) (2.0-8.3) x10*3/uL Absolute Nucleated RBC (0.0-0.012) X10*3/uL Nucleated RBC % (auto) (0.0-0.2) /100WBC VBG pH 7.47 H (7.32-7.43) VBG pCO2 34 mmHg VBG pO2 66 mmHg VBG HCO3 25 (22-26) mmol/L VBG O2 Saturation 92.0 % VBG Base Excess 2.3 mmol/L Sodium (135-145) mmol/L Potassium (3.3-5.1) mmol/L Chloride (96-108) mmol/L Carbon Dioxide (22-29) mmol/L Anion Gap (12-20) BUN (9-16) mg/dL Creatinine (0.5-1.4) mg/dL Estim Creat Clear Calc Estimated GFR POC Glucose 364 H* 248 H (60-115) mg/dL Random Glucose (60-115) mg/dL Calcium (8.4-10.2) mg/dL Magnesium (1.6-2.6) mg/dL Total Bilirubin (0.0-1.0) mg/dL AST (5-37) U/L ALT (0-40) U/L Alkaline Phosphatase (39-117) U/L Total Protein (6.5-8.0) g/dL Albumin (3.5-5.0) g/dL Acetone, Qual (Negative) Discharge Plan Discharge Clinical Impression: Diabetic gastroparesis Patient Disposition: Home, Self-Care Instructions: Diabetic Gastroparesis (DC) Additional Instructions: Drink plenty of fluids Do not smoke cannabis and it may be contributing to increased vomiting Prochlorperazine every 6 hour as needed for nausea/vomiting 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
[2022-04-12 21:26] VITALS: BP 151/103; PULSE 92; RESP 18; TEMP 37; O2SAT 98
--- NOTE | 2022-04-12 21:33 | ECG_ITS ---
Test Reason : DYSRYTHMIA Blood Pressure : / mmHG Vent. Rate : 066 BPM Atrial Rate : 077 BPM P-R Int : 142 ms QRS Dur : 078 ms QT Int : 390 ms P-R-T Axes : 040 019 031 degrees QTc Int : 408 ms Sinus rhythm with marked sinus arrhythmia Otherwise normal ECG When compared with ECG of 15-MAR-2022 21:12, ST elevation now present in Anterior leads Nonspecific T wave abnormality no longer evident in Inferior leads Nonspecific T wave abnormality no longer evident in Anterolateral leads Referred By: Khoi Macdonald Electronically Signed By:AMARIS VARGAS
--- NOTE | 2022-04-12 21:35 | PC.NURSE ---
This RN noted pt.'s HR to drop to 37 on athletic monitor with an appx. two second long pause noted. MD Vinay notified and EKG order in
[2022-04-12 21:46] LABS: Glucose, Whole Blood 364 mg/dL (60-115)
[2022-04-12] MEDS: 0.9 % Sodium Chloride 1,000 ML 999 ML IV ×2 (21:48→22:33)
[2022-04-12] MEDS: Insulin Lispro 100 UNIT/ML 3 ML VIAL 10 UNIT SUBCUT (21:50)
[2022-04-12] MEDS: ondansetron HCL 4 MG/2 ML VIAL IVPUSH (21:50)
[2022-04-12 23:33] LABS: Glucose, Whole Blood 248 mg/dL (60-115)
--- NOTE | 2022-04-12 23:33 | PC.NURSE ---
Rechecked POC prior to giving 12U insulin ordered by MD Vinay. Informed Vinay that POC recheck was 248 - wondering if he still wanted me to go ahead and give the one-time order of 12U. Per MD Vinay, do not administer the 12U.
--- NOTE | 2022-04-12 23:36 | PC.NURSE ---
Per MD Vinay, this RN to inform pt. that he's being discharged. When this RN entered pt.'s room, pt. immediately started vomiting in moderate amounts. MD Vinay notified
[2022-04-12 23:53] VITALS: BP 127/71; PULSE 91; RESP 18; TEMP 37.1; O2SAT 97
[2022-04-13] MEDS: Prochlorperazine Edisylate 10 MG/2 ML VIAL IVPUSH (00:25)
[2022-04-13 01:19] VITALS: BP 147/87; PULSE 126; RESP 20; TEMP 37.9; O2SAT 98
--- NOTE | 2022-04-13 01:24 | PC.NURSE ---
This RN went to discharge pt. when pt. noted to be febrile and tachycardic on set of VS taken immediately to discharge. MD Vinay notified and d/c deferred at this time. COVID swab ordered.
[2022-04-13 01:40] VITALS: BP 144/88; PULSE 92; RESP 21; TEMP 36.9
[2022-04-13] MEDS: Acetaminophen 325 MG TABLET 650 MG PO (01:43)
[2022-04-13 01:48] LABS: COVID-19 Test Negative (Negative); IDNOW Serial# 55D5AD1C
[2022-04-13 01:51] LABS: Appearance Urine Clear; Color Urine Yellow; Glucose Urine UA >=1000 mg/dL (Negative); Leukocyte Esterase Urine Negative (Negative); Nitrite Urine Negative (Negative); PH 7.5 (5.0-9.0); Specific Gravity - Urine >= 1.030 (1.005-1.025); Urine Blood Negative (Negative); Urine Ketones 40 mg/dL (Negative); Urine Protein Trace mg/dL (Neg-Trace)
[2022-04-13 01:56] LABS: Bacteria Urine None Seen (None Seen); Hyaline Casts Urine 0-2 /LPF (0-2); RBC Urine 0-2 /HPF (0-2); Squamous Epithelial Cell Urine 0-2 /HPF (0-2); WBC Urine 0-5 /HPF (0-5)
--- NOTE | 2022-04-13 01:58 | ECG_ITS ---
Test Reason : Tachycardia Blood Pressure : / mmHG Vent. Rate : 093 BPM Atrial Rate : 093 BPM P-R Int : 148 ms QRS Dur : 110 ms QT Int : 354 ms P-R-T Axes : 046 036 041 degrees QTc Int : 440 ms Poor data quality, interpretation may be adversely affected Normal sinus rhythm with sinus arrhythmia Normal ECG When compared with ECG of 12-APR-2022 21:28, ST no longer elevated in Anterior leads Referred By: Khoi Macdonald Electronically Signed By:AMARIS VARGAS
--- NOTE | 2022-04-13 01:58 | PC.NURSE ---
Per MD Vinay - keeping pt. until morning for fluids and continuing to monitor sporadic tachycardia to 130s
--- NOTE | 2022-04-13 02:00 | PC.NURSE ---
Pt.'s girlfriend, Elsie, leaving for the night and wants to leave her contact phone number in pt.'s chart - [phone]
[2022-04-13] MEDS: Ketorolac Tromethamine 30 MG/ML VIAL IVPUSH (02:13)
[2022-04-13] MEDS: 0.9 % Sodium Chloride 1,000 ML 999 ML IV (02:15)
[2022-04-13 03:08] VITALS: BP 127/62; PULSE 105; RESP 18; O2SAT 98
[2022-04-13 04:01] LABS: Amphetamine Screen Urine Not Detected (Not Detect); Barbiturates, Urine Not Detected (Not Detect); Benzodiazepines Screen Urine Not Detected (Not Detect); Cannabinoid Screen Urine POSITIVE (Not Detect); Cocaine Screen Urine Not Detected (Not Detect); Fentanyl, urine Not Detected (Not Detect); Opiate Screen Urine Not Detected (Not Detect); Phencyclidine Screen Urine Not Detected (Not Detect)
[2022-04-13 05:05] VITALS: PULSE 135; O2SAT 98
[2022-04-13 05:32] LABS: D Dimer High Sensitivity < 150 NG/ML
[2022-04-13 05:42] VITALS: BP 149/107; PULSE 90; RESP 18; O2SAT 97
[2022-04-13 06:43] VITALS: BP 132/58; PULSE 95; RESP 16; TEMP 36.7; O2SAT 99
[2022-04-13 06:45] LABS: Glucose, Whole Blood 248 mg/dL (60-115)
== END 2022-04-13 06:56 | disposition home or self-care (01) ==
PROVIDERS: Internal Medicine; Physician Assistant; Emergency Provider Student in an Organized Health Care Education/Training Program; PCP Internal Medicine
DX: E10.43 Type 1 diabetes mellitus with diabetic autonomic (poly)neuropathy (principal); K31.84 Gastroparesis; R53.1 Weakness; R00.0 Tachycardia, unspecified; R50.9 Fever, unspecified; Z20.822 Contact with and (suspected) exposure to COVID-19; F12.90 Cannabis use, unspecified, uncomplicated; Z79.899 Other long term (current) drug therapy; Z79.4 Long term (current) use of insulin
CPT/HCPCS: 36415; 80053; 80307; 81001; 82009; 82803; 82947; 83735; 85025; 85379; 87635; 93005; 96361; 96374; 96375; 99285; J1885; J2405

== ENCOUNTER 2022-04-30 13:54 | Observation (INO) | payer OTHER, SELFPAY ==
[2022-04-30 14:02] VITALS: BP 148/99; PULSE 98; RESP 18; TEMP 36.6; O2SAT 100; BMI 25.8
[2022-04-30 14:10] LABS: Glucose, Whole Blood 309 mg/dL (60-115)
[2022-04-30 14:37] LABS: MANUAL DIFF FLAG NO
[2022-04-30 14:44] LABS: Basophils Percent Auto 0.2 % (0-2); Hematocrit 46.7 % (42.0-52.0); Imm Gran Abs Auto 0.04 X10*3/uL (0.00-0.03); Imm Gran Pct Auto 0.3 % (0.0-0.4); Lymphocytes Absolute Auto 1.3 X10*3/uL (1.2-4.9); Lymphocytes Percent Auto 9.9 % (20-40); Mean Corpuscular HGB Conc 34.3 g/dl (31.0-36.0); Mean Corpuscular Hemoglobin 28.9 pg (27.0-33.0); Mean Corpuscular Volume 84.3 fL (80.0-98.0); Mean Platelet Volume 9.6 fL (9.4-12.4); Monocytes Percent Auto 7.2 % (2-11); Neutrophils Absolute Auto 10.9 x10*3/uL (2.0-8.3); Neutrophils Percent Auto 82.4 % (45-73); Platelet Count 329 X10*3/uL (160-400); Red Blood Count 5.54 X10*6/uL (4.60-5.80); Red Cell Distribution Width 12.2 % (11.0-16.0); White Blood Count 13.3 X10*3/uL (4.8-10.8)
[2022-04-30 14:59] LABS: Alanine Aminotransferase 12 U/L (0-40); Albumin Level 4.7 g/dL (3.5-5.0); Alkaline Phosphatase 75 U/L (39-117); Aspartate Amino Transferase 12 U/L (5-37); Bilirubin Direct 0.3 mg/dL (0.0-0.5); Bilirubin Total 0.8 mg/dL (0.0-1.0); Blood Urea Nitrogen 17 mg/dL (9-16); Calcium 10.3 mg/dL (8.4-10.2); Creatinine Clr Calc Pharmacy 76.6; Estimated Glomerular Filt Rate > 60; Glucose Random 339 mg/dL (60-115); Lipase 10 U/L (8-78); Total Protein 7.8 g/dL (6.5-8.0)
[2022-04-30 15:01] LABS: Acetone, serum QL Small (Negative)
[2022-04-30 15:07] LABS: Anion Gap 24 (12-20); Carbon Dioxide 23 mmol/L (22-29); Chloride 90 mmol/L (96-108); Sodium 132 mmol/L (135-145)
--- NOTE | 2022-04-30 18:21 | ED.NAVMDI ---
HPI - Nausea/Vomiting/Diarrhea General Chief complaint: Recheck/Abnormal Lab/Rx Stated complaint: possible DKA Time Seen by Provider: 04/30/22 16:57 Source: patient Mode of arrival: ambulatory Limitations: no limitations History of Present Illness HPI Narrative: 26-year-old diabetic with diabetic gastroparesis marijuana hyperemesis and cyclic vomiting presents emergency department after vomiting for the past 2 days. Patient is requesting blank upon arrival patient denies any fevers or chills he denies any diarrhea. He does smoke marijuana daily still states he has been told that cannabis hyperemesis very debilitating treatment stop smoking continues to smoke marijuana and is frequently visitor here to the ER for elevated blood sugars and vomiting. MD elicited complaint: nausea and vomiting Pertinent past history: anorexia, bulimia and cyclical vomiting Related Data Home Medications Medication Instructions Recorded Confirmed sertraline 25 mg tablet 25 mg PO DAILY 12/28/21 04/30/22 insulin lispro 100 unit/mL See Rx Instructions .Route .COMPLEX 03/15/22 04/30/22 subcutaneous solution pantoprazole 40 mg tablet,delayed 1 tab PO DAILY 03/15/22 04/30/22 release insulin lispro protamine-lispro 50 unit subcut DAILY 04/30/22 04/30/22 100 unit/mL (75-25) subcutaneous pen insulin lispro protamine-lispro 60 unit subcut DAILY@1800 04/30/22 04/30/22 100 unit/mL (75-25) subcutaneous pen Previous Rx's Medication Instructions Recorded prochlorperazine maleate 10 mg 10 mg PO Q6H PRN nausea and 04/13/22 tablet (Compazine) vomiting #30 tabs Allergies Allergy/AdvReac Type Severity Reaction Status Date / Time passion fruit [PASSION FRUIT] Allergy Unknown UNK Verified 04/12/22 19:52 Review of Systems Review of Systems: Review of systems: General: Patient denies any fever chills recent illness or falls Musculoskeletal: Denies back pain or body aches or other injuries HEENT: denies headache, runny nose, ear pain Respiratory: denies shortness of breath, cough Cardiovascular: no chest pain or palpitations : denies dysuria, frequency Abdomen: nausea vomiting denies abdominal pain Extremities: no swelling, no pain Skin: no diaphoresis Yes all other systems are reviewed and are negative PMFSH Past Medical History Medical History Diabetes Diabetic keto-acidosis Esophageal ulcer Gastroparesis Leukocytosis Social History Social History Household Members: None Housing: Apartment Do you presently have visiting nurse or other home services: No Alcohol intake: never Patient Tobacco Use Status: Never used Tobacco Substance Use Type: Marijuana Advance Directives: Yes Advance Directives on File: Yes Advance Directives Date on File: 01/22/21 service: No Current occupational status: employed Physical Exam Vital Signs: Vital Signs: Last Vital Signs Temp 98.6 F 04/30/22 20:00 Pulse 89 04/30/22 20:00 Resp 18 04/30/22 20:00 BP 128/75 04/30/22 20:00 Pulse Ox 98 04/30/22 20:00 O2 Del Method 04/30/22 20:00 BMI result Body Mass Index 25.8 General: Well-appearing well-nourished in no signs of distress HEENT: Normocephalic atraumatic Neck: No signs of JVD, no masses no tenderness or lymphadenopathy Cardiovascular: Regular rate and rhythm Respiratory: Clear to auscultation bilaterally Abdomen: Soft nontender no masses rectal exam performed guiac negative 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 Extremities: Normal pedal pulses no signs of edema Skin: Dry warm no rashes Back: No tenderness full ROM MDM - Nausea/Vomiting/Diarrhea MDM Narrative Medical decision making narrative: Patient looks well at this time I will give him droperidol Benadryl fluids and started insulin drip saving get his anion gap closed. Patient had his blood sugar go close to 200 and d5 half normal was started. [facility] does not allow droperidol so patient was given morphine and fluids. We will continue with fluids and drip and check a bmp. BMP shows the gap has closed from 19 to 15 I will consult the ICU. [address] Pereyra from the ICU who will review the labs and have his TAE see the patient. 2019 Seen by ICU Tae who stated 19 is a normal anion gap and that the patient is improving and safe for the floor. I will stop the insulin drip and contact the hospitalist for admission. I spoke again with the patient who states he is feeling better still with his chronic abdominal pain. Seen by hospitalist who will admit the patient. Differential Diagnosis Differential diagnosis: Likely food poisoning, drug-induced nausea and vomiting and dehydration Medical Records Attestation: I reviewed the patient's medical records. Medical records narrative: signs of dka and dehydration. Lab Data Attestation: I reviewed the patient's lab results. Result diagrams: 04/30/22 14:33 04/30/22 19:17 Labs: Lab Results 04/30/22 04/30/22 04/30/22 Range/Units 14:06 14:33 14:33 WBC 13.3 H (4.8-10.8) X10*3/uL RBC 5.54 (4.60-5.80) X10*6/uL Hgb 16.0 (14.0-18.0) g/dl Hct 46.7 (42.0-52.0) % MCV 84.3 (80.0-98.0) fL MCH 28.9 (27.0-33.0) pg MCHC 34.3 (31.0-36.0) g/dl RDW 12.2 (11.0-16.0) % Plt Count 329 (160-400) X10*3/uL MPV 9.6 (9.4-12.4) fL Immature Gran % (Auto) 0.3 (0.0-0.4) % Neut % (Auto) 82.4 H (45-73) % Lymph % (Auto) 9.9 L (20-40) % [place] % (Auto) 7.2 (2-11) % Eos % (Auto) 0.0 (0-4) % Baso % (Auto) 0.2 (0-2) % Lymph # (Auto) 1.3 (1.2-4.9) X10*3/uL [place] # (Auto) 1.0 (0.1-1.2) X10*3/uL Eos # (Auto) 0.0 (0.0-0.4) X10*3/uL Baso # (Auto) 0.0 (0.0-0.2) X10*3/uL Abs Immat Gran (auto) 0.04 H (0.00-0.03) X10*3/uL Absolute Neuts (auto) 10.9 H (2.0-8.3) x10*3/uL Absolute Nucleated RBC 0.000 (0.0-0.012) X10*3/uL Nucleated RBC % (auto) 0.0 (0.0-0.2) /100WBC VBG pH (7.32-7.43) VBG pCO2 mmHg VBG pO2 mmHg VBG HCO3 (22-26) mmol/L VBG O2 Saturation % VBG Base Excess mmol/L Sodium 132 L (135-145) mmol/L Potassium 5.0 (3.3-5.1) mmol/L Chloride 90 L (96-108) mmol/L Carbon Dioxide 23 (22-29) mmol/L Anion Gap 24 H (12-20) BUN 17 H D (9-16) mg/dL Creatinine 1.33 (0.5-1.4) mg/dL Estim Creat Clear Calc 76.6 Estimated GFR > 60 POC Glucose 309 H (60-115) mg/dL Random Glucose 339 H (60-115) mg/dL Calcium 10.3 H (8.4-10.2) mg/dL Total Bilirubin 0.8 (0.0-1.0) mg/dL Direct Bilirubin 0.3 (0.0-0.5) mg/dL AST 12 (5-37) U/L ALT 12 (0-40) U/L Alkaline Phosphatase 75 (39-117) U/L Total Protein 7.8 (6.5-8.0) g/dL Albumin 4.7 (3.5-5.0) g/dL Lipase 10 (8-78) U/L Acetone, Qual Small H (Negative) COVID-19 (EARLINE) (Negative) COVID-19 Clin Com 04/30/22 04/30/22 04/30/22 Range/Units 18:32 18:51 18:54 WBC (4.8-10.8) X10*3/uL RBC (4.60-5.80) X10*6/uL Hgb (14.0-18.0) g/dl Hct (42.0-52.0) % MCV (80.0-98.0) fL MCH (27.0-33.0) pg MCHC (31.0-36.0) g/dl RDW (11.0-16.0) % Plt Count (160-400) X10*3/uL MPV (9.4-12.4) fL Immature Gran % (Auto) (0.0-0.4) % Neut % (Auto) (45-73) % Lymph % (Auto) (20-40) % [place] % (Auto) (2-11) % Eos % (Auto) (0-4) % Baso % (Auto) (0-2) % Lymph # (Auto) (1.2-4.9) X10*3/uL [place] # (Auto) (0.1-1.2) X10*3/uL Eos # (Auto) (0.0-0.4) X10*3/uL Baso # (Auto) (0.0-0.2) X10*3/uL Abs Immat Gran (auto) (0.00-0.03) X10*3/uL Absolute Neuts (auto) (2.0-8.3) x10*3/uL Absolute Nucleated RBC (0.0-0.012) X10*3/uL Nucleated RBC % (auto) (0.0-0.2) /100WBC VBG pH 7.37 (7.32-7.43) VBG pCO2 44 mmHg VBG pO2 38 mmHg VBG HCO3 26 (22-26) mmol/L VBG O2 Saturation 54.0 % VBG Base Excess 0.5 mmol/L Sodium (135-145) mmol/L Potassium (3.3-5.1) mmol/L Chloride (96-108) mmol/L Carbon Dioxide (22-29) mmol/L Anion Gap (12-20) BUN (9-16) mg/dL Creatinine (0.5-1.4) mg/dL Estim Creat Clear Calc Estimated GFR POC Glucose 230 H (60-115) mg/dL Random Glucose (60-115) mg/dL Calcium (8.4-10.2) mg/dL Total Bilirubin (0.0-1.0) mg/dL Direct Bilirubin (0.0-0.5) mg/dL AST (5-37) U/L ALT (0-40) U/L Alkaline Phosphatase (39-117) U/L Total Protein (6.5-8.0) g/dL Albumin (3.5-5.0) g/dL Lipase (8-78) U/L Acetone, Qual (Negative) COVID-19 (EARLINE) Negative (Negative) COVID-19 Clin Com See Note 04/30/22 04/30/22 Range/Units 19:17 20:02 WBC (4.8-10.8) X10*3/uL RBC (4.60-5.80) X10*6/uL Hgb (14.0-18.0) g/dl Hct (42.0-52.0) % MCV (80.0-98.0) fL MCH (27.0-33.0) pg MCHC (31.0-36.0) g/dl RDW (11.0-16.0) % Plt Count (160-400) X10*3/uL MPV (9.4-12.4) fL Immature Gran % (Auto) (0.0-0.4) % Neut % (Auto) (45-73) % Lymph % (Auto) (20-40) % [place] % (Auto) (2-11) % Eos % (Auto) (0-4) % Baso % (Auto) (0-2) % Lymph # (Auto) (1.2-4.9) X10*3/uL [place] # (Auto) (0.1-1.2) X10*3/uL Eos # (Auto) (0.0-0.4) X10*3/uL Baso # (Auto) (0.0-0.2) X10*3/uL Abs Immat Gran (auto) (0.00-0.03) X10*3/uL Absolute Neuts (auto) (2.0-8.3) x10*3/uL Absolute Nucleated RBC (0.0-0.012) X10*3/uL Nucleated RBC % (auto) (0.0-0.2) /100WBC VBG pH (7.32-7.43) VBG pCO2 mmHg VBG pO2 mmHg VBG HCO3 (22-26) mmol/L VBG O2 Saturation % VBG Base Excess mmol/L Sodium 134 L (135-145) mmol/L Potassium 4.0 (3.3-5.1) mmol/L Chloride 96 (96-108) mmol/L Carbon Dioxide 23 (22-29) mmol/L Anion Gap 19 (12-20) BUN 16 (9-16) mg/dL Creatinine 1.07 (0.5-1.4) mg/dL Estim Creat Clear Calc 95.2 Estimated GFR > 60 POC Glucose 149 H (60-115) mg/dL Random Glucose 229 H (60-115) mg/dL Calcium 9.2 D (8.4-10.2) mg/dL Total Bilirubin (0.0-1.0) mg/dL Direct Bilirubin (0.0-0.5) mg/dL AST (5-37) U/L ALT (0-40) U/L Alkaline Phosphatase (39-117) U/L Total Protein (6.5-8.0) g/dL Albumin (3.5-5.0) g/dL Lipase (8-78) U/L Acetone, Qual (Negative) COVID-19 (EARLINE) (Negative) COVID-19 Clin Com Critical Care Time Critical Care Time Critical Care Time: Yes Total Critical Care Time: 60 Attestation: Found to be in DKA in the waiting room started on fluids, insulin drip and continued to have persistent anion gap. Discharge Plan Discharge Clinical Impression: DKA (diabetic ketoacidosis), Persistent hyperactive cannabis intoxication delirium, Cyclical vomiting, Diabetic gastroparesis Patient Disposition: Admitted As Inpatient
[2022-04-30 18:37] LABS: Venous Blood Gas Refer to POC result
[2022-04-30 18:39] LABS: VBG Base Excess 0.5 mmol/L; VBG HCO3 26 mmol/L (22-26); VBG pCO2 44 mmHg; VBG pH 7.37 (7.32-7.43); VBG pO2 38 mmHg
[2022-04-30] MEDS: Lactated Ringers 1,000 ML 999 ML IV (18:41)
[2022-04-30] MEDS: 0.9 % Sodium Chloride 1,000 ML 999 ML IV (18:41)
[2022-04-30] MEDS: Famotidine/PF 20 MG/2 ML VIAL IVPUSH (18:53)
[2022-04-30 18:54] VITALS: RESP 17
[2022-04-30] MEDS: Morphine Sulfate 4 MG/ML CARTRIDGE IVPUSH (18:54)
[2022-04-30] MEDS: Insulin Regular/NS 100 UNIT/100 ML PLAST..BAG 7 UNIT IVCONT (18:57)
[2022-04-30 18:58] LABS: Glucose, Whole Blood 230 mg/dL (60-115)
[2022-04-30 19:11] LABS: COVID-19 Test Negative (Negative); IDNOW Serial# 16C4AD1C
[2022-04-30] MEDS: Dextrose 5 % and 0.45 % NaCl 1,000 ML 150 ML IVCONT (19:22)
[2022-04-30 19:39] LABS: Anion Gap 19 (12-20); Blood Urea Nitrogen 16 mg/dL (9-16); Calcium 9.2 mg/dL (8.4-10.2); Carbon Dioxide 23 mmol/L (22-29); Chloride 96 mmol/L (96-108); Creatinine Clr Calc Pharmacy 95.2; Estimated Glomerular Filt Rate > 60; Glucose Random 229 mg/dL (60-115); Sodium 134 mmol/L (135-145)
[2022-04-30] MEDS: ondansetron HCL 4 MG/2 ML VIAL IVPUSH (19:59)
[2022-04-30 20:00] VITALS: BP 128/75; PULSE 89; RESP 18; TEMP 37; O2SAT 98
[2022-04-30 20:12] LABS: Glucose, Whole Blood 149 mg/dL (60-115)
--- NOTE | 2022-04-30 20:35 | PHA.MEDREC ---
Pharmacy Consult ? Medication Reconciliation Pharmacy has completed the medication reconciliation.
--- NOTE | 2022-04-30 21:13 | P.HPHOSP_ITS ---
History of Present Illness Date of Service: 04/30/22 Chief Complaint: nausea vomiting hyperglycemia 26-year-old male with past medical history of diabetes presents from home with complaints of nausea vomiting, feeling dehydrated. He reports that his feet started tingling, he has had multiple episode of vomiting, for past 2 days. He has generalized abdominal pain, chills, and hyperglycemia on checking his glu cose at home. He reports that he is supposed to be taking 60 mg of Lantus twice a day based on a recent change to his insulin regimen but he only takes it once a day at bedtime. He reports difficulty with compliance. He denies any chest pain, no shortness of breath, no recent cough, no fever, no diarrhea or constipation, no urinary symptoms and no lower extremity edema, no numbness tingling. On arrival to the ED patient hemodynamically stable with no significant abnormal vitals Labs are significant for 13.3, hemoglobin of 16, sodium of 132, anion gap of 24, BUN of 17, creatinine of 1.33, glucose of 309, positive acetone. Patient was started on insulin drip for multiple hours in the ED with anion closing x2. Patient currently on IV fluids. Review of Systems Review of Systems: Yes all other systems are reviewed and are negative PMFSH Medical History Diabetes Diabetic keto-acidosis Esophageal ulcer Gastroparesis Leukocytosis Family History Other No family history of coronary artery disease Surgical History No pertinent past surgical history Social History Household Members: None Housing: Apartment Do you presently have visiting nurse or other home services: No Alcohol intake: never Patient Tobacco Use Status: Never used Tobacco Substance Use Type: Marijuana Advance Directives: Yes Advance Directives on File: Yes Advance Directives Date on File: 01/22/21 service: No Current occupational status: employed Meds Allergies Allergy/AdvReac Type Severity Reaction Status Date / Time passion fruit [PASSION FRUIT] Allergy Unknown UNK Verified 04/12/22 19:52 Active Medications: Current Medications Dextrose (Dextrose 50 % 25 Gm/50 Ml Syringe) 25 gm IVPUSH Q30M PRN PRN Reason: BG < 70 Pharmacy Consult (Consult Rx Perform Med Rec) 1 each MISCELLANE ONCE PRN PRN Reason: Consult order Home Medications Medication Instructions Recorded Confirmed Last Taken Type sertraline 25 mg tablet 25 mg PO DAILY 12/28/21 04/30/22 Unknown History insulin lispro 100 unit/mL See Rx Instructions .Route .COMPLEX 03/15/22 04/30/22 Unknown History subcutaneous solution pantoprazole 40 mg tablet,delayed 1 tab PO DAILY 03/15/22 04/30/22 Unknown History release insulin lispro protamine-lispro 50 unit subcut DAILY 04/30/22 04/30/22 Unknown History 100 unit/mL (75-25) subcutaneous pen insulin lispro protamine-lispro 60 unit subcut DAILY@1800 04/30/22 04/30/22 Unknown History 100 unit/mL (75-25) subcutaneous pen Physical Exam Vital Signs and Narrative: Vital Signs: Last Vital Signs Temp 98.6 F 04/30/22 20:00 Pulse 89 04/30/22 20:00 Resp 18 04/30/22 20:00 BP 128/75 04/30/22 20:00 Pulse Ox 98 04/30/22 20:00 O2 Del Method 04/30/22 20:00 BMI result Body Mass Index 25.8 Const: Other: patient was talking to mostly from under the blanket General: cooperative and no acute distress Orientation/consciousness: patient oriented x3 Eyes: General: appearance normal, both eyes and all related structures Resp: Effort & Inspection: normal respiratory effort Auscultation: clear to auscultation bilaterally Cardio: Rate: regular rate Rhythm: regular rhythm GI: Palpation (GI): Soft to palpation Auscultation: normal bowel sounds Skin: General skin exam: no rashes or lesions noted Neuro: General: patient oriented x3 Cognition (Neuro): normal cognition Extrem: General: Yes normal to inspection and Yes no pedal edema Results Labs CBC and Chem 7: 04/30/22 14:33 04/30/22 21:33 Labs: Laboratory Results - last 24 hr 04/30/22 04/30/22 04/30/22 14:06 14:33 14:33 MCV 84.3 MCH 28.9 MCHC 34.3 RDW 12.2 Plt Count 329 MPV 9.6 Immature Gran % (Auto) 0.3 Neut % (Auto) 82.4 H Lymph % (Auto) 9.9 L [place] % (Auto) 7.2 Eos % (Auto) 0.0 Baso % (Auto) 0.2 Lymph # (Auto) 1.3 [place] # (Auto) 1.0 Eos # (Auto) 0.0 Baso # (Auto) 0.0 Abs Immat Gran (auto) 0.04 H Absolute Neuts (auto) 10.9 H Absolute Nucleated RBC 0.000 Nucleated RBC % (auto) 0.0 VBG pH VBG pCO2 VBG pO2 VBG HCO3 VBG O2 Saturation VBG Base Excess Anion Gap 24 H Estim Creat Clear Calc 76.6 Estimated GFR > 60 POC Glucose 309 H Random Glucose 339 H Calcium 10.3 H Total Bilirubin 0.8 Direct Bilirubin 0.3 AST 12 ALT 12 Alkaline Phosphatase 75 Total Protein 7.8 Albumin 4.7 Lipase 10 Acetone, Qual Small H COVID-19 (EARLINE) COVID-TroopSwap 04/30/22 04/30/22 04/30/22 18:32 18:51 18:54 MCV MCH MCHC RDW Plt Count MPV Immature Gran % (Auto) Neut % (Auto) Lymph % (Auto) [place] % (Auto) Eos % (Auto) Baso % (Auto) Lymph # (Auto) [place] # (Auto) Eos # (Auto) Baso # (Auto) Abs Immat Gran (auto) Absolute Neuts (auto) Absolute Nucleated RBC Nucleated RBC % (auto) VBG pH 7.37 VBG pCO2 44 VBG pO2 38 VBG HCO3 26 VBG O2 Saturation 54.0 VBG Base Excess 0.5 Anion Gap Estim Creat Clear Calc Estimated GFR POC Glucose 230 H Random Glucose Calcium Total Bilirubin Direct Bilirubin AST ALT Alkaline Phosphatase Total Protein Albumin Lipase Acetone, Qual COVID-19 (EARLINE) Negative COVID-19 [facility] Com See Note 04/30/22 04/30/22 19:17 20:02 MCV MCH MCHC RDW Plt Count MPV Immature Gran % (Auto) Neut % (Auto) Lymph % (Auto) [place] % (Auto) Eos % (Auto) Baso % (Auto) Lymph # (Auto) [place] # (Auto) Eos # (Auto) Baso # (Auto) Abs Immat Gran (auto) Absolute Neuts (auto) Absolute Nucleated RBC Nucleated RBC % (auto) VBG pH VBG pCO2 VBG pO2 VBG HCO3 VBG O2 Saturation VBG Base Excess Anion Gap 19 Estim Creat Clear Calc 95.2 Estimated GFR > 60 POC Glucose 149 H Random Glucose 229 H Calcium 9.2 D Total Bilirubin Direct Bilirubin AST ALT Alkaline Phosphatase Total Protein Albumin Lipase Acetone, Qual COVID-19 (EARLINE) COVID-19 Clin Com Assessment and Plan (1) DKA (diabetic ketoacidosis): Qualifiers: Diabetes mellitus type: type 2 Diabetes mellitus complication detail: without coma Qualified Code(s): E11.10 - Type 2 diabetes mellitus with ketoacidosis without coma Status: Acute (2) Acute kidney injury: Status: Acute (3) Diabetic gastroparesis: Status: Acute (4) Noncompliance with medication regimen: Status: Acute Plan 26-year-old male with past medical history of diabetes presents to the hospital in DKA # DKA - secondary to medication noncompliance, patient is supposed to be on 60 units of Lantus b.i.d. but only takes it at bedtime. He has type 2 diabetes - will continue IV fluids, resume his home insulin at 6 units b.i.d., received the 1st dose at bedtime - I had an extensive discussion with him regarding his medication regimen and compliance, and also stated that he should be seen by his financial quantitative analyst and find a solution to help him be more compliant with his insulin - patient seems to understand and agree - continue low-dose sliding scale insulin, diabetic diet, and point of care q.i.d. a.c. HS # GISSELLE - secondary to dehydration [ continue IV fluids - follow BMP # diabetic gastroparesis - likely etiology of abdominal pain nausea or vomiting - IV hydration, antiemetics, glucose control DVT prophylaxis: Lovenox Quality Stroke Does the patient have a stroke diagnosis?: No VTE Prior VTE?: No VTE Risk Level:: Medical - low VTE Device Contraindication: Treatment Not Indicated VTE Drug Contraindication: Treatment Not Indicated
[2022-04-30 21:59] LABS: Anion Gap 15 (12-20); Blood Urea Nitrogen 14 mg/dL (9-16); Calcium 8.6 mg/dL (8.4-10.2); Carbon Dioxide 23 mmol/L (22-29); Chloride 100 mmol/L (96-108); Creatinine Clr Calc Pharmacy 122.7; Estimated Glomerular Filt Rate > 60; Glucose Random 116 mg/dL (60-115); Sodium 134 mmol/L (135-145)
[2022-04-30 22:18] LABS: Glucose, Whole Blood 117 mg/dL (60-115)
[2022-04-30] MEDS: Insulin Glargine,Hum.rec.anlog 100 UNIT/ML 10 ML VIAL 60 UNIT SUBCUT (23:16)
[2022-04-30] MEDS: 0.9 % Sodium Chloride Flush 3 ML SYRINGE IVFLUSH (23:17)
[2022-04-30 23:19] LABS: Glucose, Whole Blood 121 mg/dL (60-115)
[2022-05-01] MEDS: Lactated Ringers 1,000 ML 100 ML IVCONT (03:49)
[2022-05-01 05:13] VITALS: BP 123/80; PULSE 94; RESP 16; TEMP 36.8; O2SAT 99
[2022-05-01 06:04] LABS: Glucose, Whole Blood 99 mg/dL (60-115)
[2022-05-01 07:02] LABS: Glucose, Whole Blood 60 mg/dL (60-115)
--- NOTE | 2022-05-01 07:12 | PC.NURSE ---
Called floor to give report. waiting for a call back
--- NOTE | 2022-05-01 07:39 | PC.NURSE ---
report given to med/veterinary surgery technologist
[2022-05-01 08:30] LABS: Glucose, Whole Blood 91 mg/dL (60-115)
[2022-05-01 11:11] LABS: MANUAL DIFF FLAG NO
[2022-05-01] MEDS: 0.9 % Sodium Chloride Flush 3 ML SYRINGE IVFLUSH ×3 (11:15→23:43)
[2022-05-01 11:19] LABS: Basophils Percent Auto 0.2 % (0-2); Eosinophils Percent Auto 0.3 % (0-4); Hematocrit 43.4 % (42.0-52.0); Hemoglobin 14.9 g/dl (14.0-18.0); Imm Gran Abs Auto 0.03 X10*3/uL (0.00-0.03); Imm Gran Pct Auto 0.3 % (0.0-0.4); Lymphocytes Absolute Auto 1.9 X10*3/uL (1.2-4.9); Mean Corpuscular HGB Conc 34.3 g/dl (31.0-36.0); Mean Corpuscular Hemoglobin 28.7 pg (27.0-33.0); Mean Corpuscular Volume 83.6 fL (80.0-98.0); Mean Platelet Volume 9.3 fL (9.4-12.4); Monocytes Absolute Auto 1.2 X10*3/uL (0.1-1.2); Monocytes Percent Auto 11.9 % (2-11); Neutrophils Absolute Auto 6.7 x10*3/uL (2.0-8.3); Neutrophils Percent Auto 68.3 % (45-73); Platelet Count 272 X10*3/uL (160-400); Red Blood Count 5.19 X10*6/uL (4.60-5.80); Red Cell Distribution Width 12.1 % (11.0-16.0); White Blood Count 9.9 X10*3/uL (4.8-10.8)
[2022-05-01 11:25] VITALS: BP 141/83; PULSE 75; RESP 16; TEMP 36.8; O2SAT 97
[2022-05-01 11:35] LABS: Glucose, Whole Blood 41 mg/dL (60-115)
[2022-05-01 11:42] LABS: Anion Gap 15 (12-20); Blood Urea Nitrogen 10 mg/dL (9-16); Carbon Dioxide 24 mmol/L (22-29); Chloride 100 mmol/L (96-108); Creatinine Clr Calc Pharmacy 114.4; Estimated Glomerular Filt Rate > 60; Glucose Random 45 mg/dL (60-115); Potassium 3.2 mmol/L (3.3-5.1); Sodium 136 mmol/L (135-145)
--- NOTE | 2022-05-01 12:23 | P.PNIM_ITS ---
Subjective Subjective Date of Service: 05/01/22 Interval History: the patient was seen and evaluated this morning Laying in bed, feels comfortable as nausea and vomiting improved Reported event of hypoglycemia in 40s No reported other overnight events. Systemic review: No fever, chills or weakness No chest pain, palpitation No shortness of breath or coughing No abdominal pain, nausea or vomiting No urinary symptoms No any rash or wounds Physical Exam Vital Signs: Vital Signs: Last Vital Signs Temp 98.3 F 05/01/22 11:25 Pulse 75 05/01/22 11:25 Resp 16 05/01/22 11:25 BP 141/83 H 05/01/22 11:25 Pulse Ox 97 05/01/22 11:25 O2 Del Method 05/01/22 11:25 BMI result Body Mass Index 25.8 Const: Other: Constitutional : Alert, oriented, not in distress Neck : Normal inspection, Supple Cardiovascular : RRR, no JVP, no lower extremity edema Respiratory : fair bilateral air entry, no crackles, wheezes or rhonchi Gastrointestinal: soft, lax, Normal bowel sounds, Non tender Skin : Warm, Dry Neurological : Alert & oriented x3, No focal deficit Objective Data Active Medications Acetaminophen (Acetaminophen 325 Mg Tablet) 650 mg PO Q6H PRN PRN Reason: Pain, Mild (Pain Scale 1-3) Dextrose (Dextrose 50 % 25 Gm/50 Ml Syringe) 25 gm IVPUSH Q30M PRN PRN Reason: BG < 70 Dextrose (Dextrose 50 % 25 Gm/50 Ml Syringe) 25 gm IVPUSH Q15M PRN; Protocol PRN Reason: per Hypoglycemia Standing Ord. Docusate Sodium (Docusate Sodium 100 Mg Capsule) 100 mg PO DAILY PRN PRN Reason: Constipation Glucose (Glucose Gel 15 Gm Gel..Gram.) 15 gm PO Q15M PRN; Protocol PRN Reason: per Hypoglycemia Standing Ord. Lactated Ringer's (Lr) 1,000 mls @ 100 mls/hr IVCONT .Q10H ON LICENSE OF [facility] Stop: 05/01/22 16:00 Last Admin: 05/01/22 03:49 Dose: 100 mls/hr Documented By: DALLAS Insulin Human Lispro (Insulin Lispro 100 Unit/Ml 3 Ml Vial) 0 unit SUBCUT QIDACHS ON LICENSE OF [facility]; Protocol Last Admin: 05/01/22 07:06 Dose: Not Given Documented By: EULOGIO Non-Admin Reason: POC 60 Omeprazole (Omeprazole 20 Mg Capsule.Dr) 20 mg PO DAILY ON LICENSE OF [facility] Last Admin: 05/01/22 11:15 Dose: Not Given Documented By: SUBHA Non-Admin Reason: Patient Refused Ondansetron HCl (Ondansetron Hcl 4 Mg/2 Ml Vial) 4 mg IVPUSH Q8H PRN PRN Reason: Nausea and Vomiting Pharmacy Consult (Consult Rx Perform Med Rec) 1 each MISCELLANE ONCE PRN PRN Reason: Consult order Sertraline HCl (Sertraline Hcl 25 Mg Tablet) 25 mg PO DAILY ON LICENSE OF [facility] Last Admin: 05/01/22 11:15 Dose: Not Given Documented By: SUBHA Non-Admin Reason: Patient Refused Sodium Chloride (0.9 % Sodium Chloride Flush 3 Ml Syringe) 3 ml IVFLUSH QSHIFT ON LICENSE OF [facility] Last Admin: 05/01/22 11:15 Dose: 3 ml Documented By: SUBHA Labs CBC & Chem 7: 05/01/22 11:01 05/01/22 11:01 Labs: Laboratory Results - last 24 hr 04/30/22 04/30/22 04/30/22 14:06 14:33 14:33 MCV 84.3 MCH 28.9 MCHC 34.3 RDW 12.2 Plt Count 329 MPV 9.6 Immature Gran % (Auto) 0.3 Neut % (Auto) 82.4 H Lymph % (Auto) 9.9 L [place] % (Auto) 7.2 Eos % (Auto) 0.0 Baso % (Auto) 0.2 Lymph # (Auto) 1.3 [place] # (Auto) 1.0 Eos # (Auto) 0.0 Baso # (Auto) 0.0 Abs Immat Gran (auto) 0.04 H Absolute Neuts (auto) 10.9 H Absolute Nucleated RBC 0.000 Nucleated RBC % (auto) 0.0 VBG pH VBG pCO2 VBG pO2 VBG HCO3 VBG O2 Saturation VBG Base Excess Anion Gap 24 H Estim Creat Clear Calc 76.6 Estimated GFR > 60 POC Glucose 309 H Random Glucose 339 H Calcium 10.3 H Total Bilirubin 0.8 Direct Bilirubin 0.3 AST 12 ALT 12 Alkaline Phosphatase 75 Total Protein 7.8 Albumin 4.7 Lipase 10 Acetone, Qual Small H COVID-19 (EARLINE) COVID-19 Clin Com 04/30/22 04/30/22 04/30/22 18:32 18:51 18:54 MCV MCH MCHC RDW Plt Count MPV Immature Gran % (Auto) Neut % (Auto) Lymph % (Auto) [place] % (Auto) Eos % (Auto) Baso % (Auto) Lymph # (Auto) [place] # (Auto) Eos # (Auto) Baso # (Auto) Abs Immat Gran (auto) Absolute Neuts (auto) Absolute Nucleated RBC Nucleated RBC % (auto) VBG pH 7.37 VBG pCO2 44 VBG pO2 38 VBG HCO3 26 VBG O2 Saturation 54.0 VBG Base Excess 0.5 Anion Gap Estim Creat Clear Calc Estimated GFR POC Glucose 230 H Random Glucose Calcium Total Bilirubin Direct Bilirubin AST ALT Alkaline Phosphatase Total Protein Albumin Lipase Acetone, Qual COVID-19 (EARLINE) Negative COVID-19 Clin Com See Note 04/30/22 04/30/22 04/30/22 19:17 20:02 20:59 MCV MCH MCHC RDW Plt Count MPV Immature Gran % (Auto) Neut % (Auto) Lymph % (Auto) [place] % (Auto) Eos % (Auto) Baso % (Auto) Lymph # (Auto) [place] # (Auto) Eos # (Auto) Baso # (Auto) Abs Immat Gran (auto) Absolute Neuts (auto) Absolute Nucleated RBC Nucleated RBC % (auto) VBG pH VBG pCO2 VBG pO2 VBG HCO3 VBG O2 Saturation VBG Base Excess Anion Gap 19 Estim Creat Clear Calc 95.2 Estimated GFR > 60 POC Glucose 149 H 99 Random Glucose 229 H Calcium 9.2 D Total Bilirubin Direct Bilirubin AST ALT Alkaline Phosphatase Total Protein Albumin Lipase Acetone, Qual COVID-19 (EARLINE) COVID-19 Clin Com 04/30/22 04/30/22 04/30/22 21:33 21:58 23:14 MCV MCH MCHC RDW Plt Count MPV Immature Gran % (Auto) Neut % (Auto) Lymph % (Auto) [place] % (Auto) Eos % (Auto) Baso % (Auto) Lymph # (Auto) [place] # (Auto) Eos # (Auto) Baso # (Auto) Abs Immat Gran (auto) Absolute Neuts (auto) Absolute Nucleated RBC Nucleated RBC % (auto) VBG pH VBG pCO2 VBG pO2 VBG HCO3 VBG O2 Saturation VBG Base Excess Anion Gap 15 Estim Creat Clear Calc 122.7 Estimated GFR > 60 POC Glucose 117 H 121 H Random Glucose 116 H D Calcium 8.6 D Total Bilirubin Direct Bilirubin AST ALT Alkaline Phosphatase Total Protein Albumin Lipase Acetone, Qual COVID-19 (EARLINE) COVID-19 Project Dance 05/01/22 05/01/22 05/01/22 06:57 08:25 11:01 MCV 83.6 MCH 28.7 MCHC 34.3 RDW 12.1 Plt Count 272 MPV 9.3 L Immature Gran % (Auto) 0.3 Neut % (Auto) 68.3 Lymph % (Auto) 19.0 L [place] % (Auto) 11.9 H Eos % (Auto) 0.3 Baso % (Auto) 0.2 Lymph # (Auto) 1.9 [place] # (Auto) 1.2 Eos # (Auto) 0.0 Baso # (Auto) 0.0 Abs Immat Gran (auto) 0.03 Absolute Neuts (auto) 6.7 Absolute Nucleated RBC 0.000 Nucleated RBC % (auto) 0.0 VBG pH VBG pCO2 VBG pO2 VBG HCO3 VBG O2 Saturation VBG Base Excess Anion Gap Estim Creat Clear Calc Estimated GFR POC Glucose 60 91 Random Glucose Calcium Total Bilirubin Direct Bilirubin AST ALT Alkaline Phosphatase Total Protein Albumin Lipase Acetone, Qual COVID-19 (EARLINE) COVID-19 Project Dance 05/01/22 05/01/22 11:01 11:28 MCV MCH MCHC RDW Plt Count MPV Immature Gran % (Auto) Neut % (Auto) Lymph % (Auto) [place] % (Auto) Eos % (Auto) Baso % (Auto) Lymph # (Auto) [place] # (Auto) Eos # (Auto) Baso # (Auto) Abs Immat Gran (auto) Absolute Neuts (auto) Absolute Nucleated RBC Nucleated RBC % (auto) VBG pH VBG pCO2 VBG pO2 VBG HCO3 VBG O2 Saturation VBG Base Excess Anion Gap 15 Estim Creat Clear Calc 114.4 Estimated GFR > 60 POC Glucose 41 L* Random Glucose 45 L* Calcium 9.0 Total Bilirubin Direct Bilirubin AST ALT Alkaline Phosphatase Total Protein Albumin Lipase Acetone, Qual COVID-19 (EARLINE) COVID-19 Project Dance Assessment and Plan (1) Noncompliance with medication regimen: Status: Acute (2) Cyclical vomiting: Status: Acute (3) Acute kidney injury: Status: Acute Plan 26-year-old male with past medical history of diabetes presents to the hospital in DKA # DKA in type 2 diabetes mellitus on insulin secondary to medication noncompliance supposed to be on 60 units of Lantus b.i.d. but only takes it at bedtime To DC IV fluids Received a dose of Lantus 60 units # episode of hypoglycemia Had a reading of 41, was awake, no symptoms of hypoglycemia attack as he was eating To repeat and give D25 p.r.n. Continue with SSI for now, if blood sugar increased to give 30 units of Lantus at bedtime He is planning to see his attractions associate after discharge with thoughts about getting his insulin pump if possible He understands for the short-term you will need to be compliant with his medication and using insulin as prescribed, he agrees continue low-dose sliding scale insulin, diabetic diet POC # GISSELLE secondary to dehydration, resolving To DC IV fluids follow BMP # nausea and vomiting Question cyclic vomiting syndrome, gastroparesis as etiology Continue IV hydration, antiemetics, glucose control # Hypokalemia K of 3.2, to give replacement follow BMP DVT prophylaxis: Lovenox Quality Stroke Does the patient have a stroke diagnosis?: No VTE Prior VTE?: No VTE Risk Level:: Medical - low VTE Device Contraindication: Treatment Not Indicated VTE Drug Contraindication: Treatment Not Indicated
[2022-05-01 12:30] LABS: Glucose, Whole Blood 56 mg/dL (60-115)
[2022-05-01] MEDS: Dextrose 50 % 25 GM/50 ML SYRINGE IVPUSH (12:30)
[2022-05-01 12:55] LABS: Glucose, Whole Blood 187 mg/dL (60-115)
--- NOTE | 2022-05-01 13:04 | MHC.CM.PN ---
EMR REVIEWED, PT ADMITTED W/DKA, CM MET W/PT WHO REPORTS HE LIVES ALONE, INDEP W/ALL CARE, DENIES USE OF DME EXCEPT DIABETIC SUPPLIES AND HAS NO HOME SERVICES, PT VERIFIES PCP IS AT [facility] HOWEVER REPORTS HIS NAME IS DR. Abbott AND PRONOUNCES NAME MACEY, JOCE UNABLE TO VERIFY AT THIS TIME, MODERNA X2 AND HCP ON FILE FROM PRRVIOUS VISIT. D.C PLAN: HOME SELF CARE W/FAMILY FOR TRANSPORT
[2022-05-01 15:44] VITALS: BP 125/85; PULSE 90; RESP 18; TEMP 36.1; O2SAT 100
[2022-05-01 15:52] LABS: Glucose, Whole Blood 160 mg/dL (60-115)
--- NOTE | 2022-05-01 16:54 | PC.NURSE ---
P BS 160,previous BS 45,insulin due per scale I Dr. Chin notified E insulin to be administered per scale,patient is eating dinner
[2022-05-01] MEDS: Insulin Lispro 100 UNIT/ML 3 ML VIAL SUBCUT ×2 (17:01→20:35)
[2022-05-01] MEDS: Sertraline HCL 25 MG TABLET PO (17:01)
--- NOTE | 2022-05-01 17:09 | PC.NURSE ---
K level 3.2 at 1101,Dr. Chin made aware
[2022-05-01] MEDS: Potassium Chloride Packet 20 MEQ PACKET 40 MEQ PO (18:14)
[2022-05-01 19:06] VITALS: BP 130/90; PULSE 89; RESP 18; TEMP 36.5; O2SAT 100
[2022-05-01 20:06] LABS: Glucose, Whole Blood 197 mg/dL (60-115)
[2022-05-01] MEDS: Insulin Glargine,Hum.rec.anlog 100 UNIT/ML 10 ML VIAL 30 UNIT SUBCUT (20:36)
[2022-05-01 23:37] VITALS: BP 149/99; PULSE 91; RESP 18
[2022-05-01] MEDS: Morphine Sulfate 2 MG/ML CARTRIDGE IVPUSH (23:42)
[2022-05-02 03:40] VITALS: BP 118/72; PULSE 80; RESP 16; TEMP 37.2; O2SAT 100
[2022-05-02 07:05] LABS: Anion Gap 15 (12-20); Blood Urea Nitrogen 8 mg/dL (9-16); Calcium 9.1 mg/dL (8.4-10.2); Carbon Dioxide 26 mmol/L (22-29); Chloride 102 mmol/L (96-108); Creatinine Clr Calc Pharmacy 127.3; Estimated Glomerular Filt Rate > 60; Potassium 3.9 mmol/L (3.3-5.1); Sodium 139 mmol/L (135-145)
[2022-05-02 07:29] LABS: Glucose Random 37 mg/dL (60-115)
[2022-05-02 07:30] VITALS: BP 129/80; PULSE 86; RESP 18; TEMP 36.8; O2SAT 97
[2022-05-02] MEDS: Dextrose 50 % 25 GM/50 ML SYRINGE IVPUSH (07:30)
[2022-05-02] MEDS: 0.9 % Sodium Chloride Flush 3 ML SYRINGE IVFLUSH (07:35)
[2022-05-02 08:11] LABS: Glucose, Whole Blood 144 mg/dL (60-115)
[2022-05-02 09:28] LABS: Estimated Average Glucose 229 mg/dL; Hemoglobin A1c % 9.6 %
--- NOTE | 2022-05-02 09:45 | PM.DS ---
DS: Providers Provider Date of Service: 05/02/22 Date of admission: 04/30/22 21:09 Primary care physician: Unknown Physician DS: Diagnosis Discharge Diagnosis (1) Noncompliance with medication regimen: Status: Acute (2) Cyclical vomiting: Status: Acute (3) Acute kidney injury: Status: Acute (4) DKA (diabetic ketoacidosis): Status: Acute (5) Hypoglycemia associated with type 2 diabetes mellitus: Status: Acute (6) Hypokalemia: Status: Acute DS: Summary Hospital Course Hospital Course: Admission note HPI ?26-year-old male with past medical history of diabetes presents from home with complaints of nausea vomiting, feeling dehydrated.? He reports that his feet started tingling, he has had multiple episode of vomiting, for past 2 days.? He has generalized abdominal pain, chills, and hyperglycemia on checking his glucose at home.? He reports that he is supposed to be taking 60 mg of Lantus twice a day based on a recent change to his insulin regimen but he only takes it once a day at bedtime.? He reports difficulty with compliance.? He denies any chest pain, no shortness of breath, no recent cough, no fever, no diarrhea or constipation, no urinary symptoms and no lower extremity edema, no? numbness tingling. On arrival to the ED patient hemodynamically stable with no significant abnormal vitals Labs are significant for? 13.3, hemoglobin of 16, sodium of 132, anion gap of 24, BUN of 17, creatinine of 1.33, glucose of 309, positive acetone.? Patient was started on insulin drip for multiple hours in the ED with anion closing x2.? Patient currently on IV fluids. Hospital course The patient was admitted to the hospital for treatment of hyperglycemia secondary to DKA for noncompliance with medications. He was treated with IV insulin and IV fluids with closure of the anion gap. Started on 60 of Lantus with episode of hypoglycemia reported. Received 30 units at bedtime. He takes mixed insulin at home of 50 and 60 units but he is a oozing at once a day only. Nausea and vomiting at time of presentation resolved as the patient start tolerate diet well. HbA1c of 9.4. Discussed about the need to be adherent to his medications. Noted to have acute kidney injury at time of presentation with 3 which resolved with usage of IV fluids. Hypokalemia which was replaced and corrected. Continue your insulin therapy as prescribed to follow-up with Endocrinology for placement of insulin pump Monitor your blood sugar up to 4 times daily for 1 week and report your readings to your civil structural engineer next visit. Time Spent with Patient Time attestation: Total time spent providing and/or coordinating discharge services: Discharge coordination time: Less than 30 minutes Quality: Safe Use of Opioids Does Pt have an Active Cancer Diagnosis on the Problem List?: No Quality: Stroke Does the patient have a stroke diagnosis?: No Physical Exam Vital Signs: Vital Signs: Last Vital Signs Temp 98.2 F 05/02/22 07:30 Pulse 86 05/02/22 07:30 Resp 18 05/02/22 07:30 BP 129/80 05/02/22 07:30 Pulse Ox 97 05/02/22 07:30 O2 Del Method 05/02/22 07:30 BMI result Body Mass Index 25.8 Const: Other: Constitutional : Alert, oriented, not in distress Neck : Normal inspection, Supple Cardiovascular : RRR, no JVP, no lower extremity edema Respiratory : fair bilateral air entry, no crackles, wheezes or rhonchi Gastrointestinal: soft, lax, Normal bowel sounds, Non tender Skin : Warm, Dry Neurological : Alert & oriented x3, No focal deficit DS: Data Data Completed and Pending Completed studies during hospitalization [Text1]: Procedures Excision of Stomach, Pylorus, Via Natural or Artificial Opening Endoscopic, Diagnostic (06/22/21) Labs on day of discharge: Laboratory Results - last 24 hr 05/01/22 05/01/22 05/01/22 11:01 11:01 11:28 WBC 9.9 RBC 5.19 Hgb 14.9 Hct 43.4 MCV 83.6 MCH 28.7 MCHC 34.3 RDW 12.1 Plt Count 272 MPV 9.3 L Immature Gran % (Auto) 0.3 Neut % (Auto) 68.3 Lymph % (Auto) 19.0 L [place] % (Auto) 11.9 H Eos % (Auto) 0.3 Baso % (Auto) 0.2 Lymph # (Auto) 1.9 [place] # (Auto) 1.2 Eos # (Auto) 0.0 Baso # (Auto) 0.0 Abs Immat Gran (auto) 0.03 Absolute Neuts (auto) 6.7 Absolute Nucleated RBC 0.000 Nucleated RBC % (auto) 0.0 Sodium 136 Potassium 3.2 L Chloride 100 Carbon Dioxide 24 Anion Gap 15 BUN 10 Creatinine 0.89 Estim Creat Clear Calc 114.4 Estimated GFR > 60 POC Glucose 41 L* Random Glucose 45 L* Estimat Average Glucose Hemoglobin A1c % Calcium 9.0 05/01/22 05/01/22 05/01/22 12:27 12:51 15:29 WBC RBC Hgb Hct MCV MCH MCHC RDW Plt Count MPV Immature Gran % (Auto) Neut % (Auto) Lymph % (Auto) [place] % (Auto) Eos % (Auto) Baso % (Auto) Lymph # (Auto) [place] # (Auto) Eos # (Auto) Baso # (Auto) Abs Immat Gran (auto) Absolute Neuts (auto) Absolute Nucleated RBC Nucleated RBC % (auto) Sodium Potassium Chloride Carbon Dioxide Anion Gap BUN Creatinine Estim Creat Clear Calc Estimated GFR POC Glucose 56 L* 187 H 160 H Random Glucose Estimat Average Glucose Hemoglobin A1c % Calcium 05/01/22 05/02/22 05/02/22 19:09 05:26 05:26 WBC RBC Hgb Hct MCV MCH MCHC RDW Plt Count MPV Immature Gran % (Auto) Neut % (Auto) Lymph % (Auto) [place] % (Auto) Eos % (Auto) Baso % (Auto) Lymph # (Auto) [place] # (Auto) Eos # (Auto) Baso # (Auto) Abs Immat Gran (auto) Absolute Neuts (auto) Absolute Nucleated RBC Nucleated RBC % (auto) Sodium 139 Potassium 3.9 D Chloride 102 Carbon Dioxide 26 Anion Gap 15 BUN 8 L Creatinine 0.80 Estim Creat Clear Calc 127.3 Estimated GFR > 60 POC Glucose 197 H Random Glucose 37 L* Estimat Average Glucose 229 Hemoglobin A1c % 9.6 Calcium 9.1 05/02/22 08:08 WBC RBC Hgb Hct MCV MCH MCHC RDW Plt Count MPV Immature Gran % (Auto) Neut % (Auto) Lymph % (Auto) [place] % (Auto) Eos % (Auto) Baso % (Auto) Lymph # (Auto) [place] # (Auto) Eos # (Auto) Baso # (Auto) Abs Immat Gran (auto) Absolute Neuts (auto) Absolute Nucleated RBC Nucleated RBC % (auto) Sodium Potassium Chloride Carbon Dioxide Anion Gap BUN Creatinine Estim Creat Clear Calc Estimated GFR POC Glucose 144 H Random Glucose Estimat Average Glucose Hemoglobin A1c % Calcium Discharge Plan Discharge Patient Disposition: Home, Self-Care Discharge Diagnosis: Diabetic ketoacidosis Referrals: Physician,Tala J [Primary Care Provider] - 1 Week Discharge Medications: Continued sertraline 25 mg tablet 25 mg PO DAILY pantoprazole 40 mg tablet,delayed release (DR/EC) 1 tab PO DAILY insulin lispro 100 unit/mL solution See Rx Instructions .ROUTE .COMPLEX Rx Instructions: to be used per insulin pump 110 to 120 units per day prochlorperazine maleate [Compazine] 10 mg tablet 10 mg PO Q6H PRN (Reason: nausea and vomiting) Qty: 30 0RF insulin lispro protamin-lispro 100 unit/mL (75-25) insulin pen 50 unit subcut DAILY insulin lispro protamin-lispro 100 unit/mL (75-25) insulin pen 60 unit subcut DAILY@1800 Discharge Orders: Discharge Order (Routine); Ordered 05/02/22 Ordered By: Rocio Chin Diet: Diabetic diet Activity on Discharge: As tolerated Stand Alone Forms: Patient Portal Discharge page Care Plan Goals: Read below Health Concerns: Read below Plan of Treatment: Read below Assessment: You were admitted to the hospital for treatment of evaluated blood sugar readings and acidosis. Responded well to IV fluid and insulin treatment. Your kidney function improved back to normal as was noted to have kidney injury at time of presentation. Continue your insulin therapy as prescribed to follow-up with Endocrinology for placement of insulin pump Monitor your blood sugar up to 4 times daily for 1 week and report your readings to your civil structural engineer next visit.
[2022-05-02] MEDS: Omeprazole 20 MG CAPSULE.DR PO (10:23)
[2022-05-02] MEDS: Sertraline HCL 25 MG TABLET PO (10:30)
--- NOTE | 2022-05-02 11:07 | MHC.CM.PN ---
PT MEDICALLY CLEARED FOR D/C HOME SELF CARE, PT TO ARRANGE TRANSPORT
== END 2022-05-02 12:54 | disposition home or self-care (01) ==
LOC: HO.ED 20:38 → HO.EDOVER 21:17 → HO.S3 05-01 07:09
PROVIDERS: Physician Assistant; Admitting Provider Internal Medicine; Emergency Provider Student in an Organized Health Care Education/Training Program; PCP Internal Medicine; Visit Provider Student in an Organized Health Care Education/Training Program
DX: R11.15 Cyclical vomiting syndrome unrelated to migraine (principal); F12.921 Cannabis use, unspecified with intoxication delirium; E87.6 Hypokalemia; E11.649 Type 2 diabetes mellitus with hypoglycemia without coma; E11.43 Type 2 diabetes mellitus with diabetic autonomic (poly)neuropathy; Z91.14 Patient's other noncompliance with medication regimen; K31.84 Gastroparesis; N17.9 Acute kidney failure, unspecified; E11.10 Type 2 diabetes mellitus with ketoacidosis without coma; Z20.822 Contact with and (suspected) exposure to COVID-19; Z79.899 Other long term (current) drug therapy; Z79.4 Long term (current) use of insulin
CPT/HCPCS: 36415; 80048; 80053; 82009; 82248; 82803; 82947; 83036; 83690; 85025; 87635; 96365; 96366; 96375; 96376; 99218; 99285; J2270; J2405

== ENCOUNTER 2022-05-10 12:29 | Emergency (ER) | payer OTHER, SELFPAY ==
--- NOTE | ~2022-05-10 | CT_ITS ---
EXAMINATION: CT ABDOMEN AND PELVIS WITH CONTRAST CLINICAL INFORMATION: Epigastric pain COMPARISON: CT abdomen pelvis 02/23/2019 TECHNIQUE: Multidetector volumetric images were obtained from the superior aspect of the liver through the pubic symphysis following administration 85 mL of Omnipaque 350 intravenous contrast. Sagittal and coronal reformatted images were obtained on the technologist's workstation. Oral contrast: No This CT examination was performed using dose optimization techniques as appropriate, variously including the following: *Automated exposure control *Adjustment of mA and/or kV according to patient size (this includes techniques or standardized protocols for targeted exams where dose is matched to indication/reason for exam; i.e. extremities or head) *Use of iterative reconstruction technique DLP: 409 mGy-cm FINDINGS: LUNG BASES: Unremarkable. ABDOMINAL AND PELVIC WALL: Unremarkable. LIVER AND BILIARY TREE: Focal fat along the falciform ligament.. GALLBLADDER: Unremarkable. PANCREAS: Unremarkable. SPLEEN: Unremarkable. ADRENAL GLANDS: Unremarkable. KIDNEYS AND URETERS: Unremarkable. GASTROINTESTINAL TRACT: Large and small bowel are unremarkable. No findings to suggest appendicitis. VASCULAR: Unremarkable. LYMPH NODES/PERITONEUM: No lymphadenopathy. FREE FLUID: None. BLADDER: Bladder is significantly distended. PELVIC VISCERA: Unremarkable. OSSEOUS STRUCTURES: Unremarkable. CT/CT abdomen pelvis w IV con IMPRESSION: Urinary bladder is significantly distended, otherwise no findings to explain symptoms of abdominal pain.
[2022-05-10 12:47] VITALS: BP 164/108; PULSE 87; RESP 18; TEMP 37.1; O2SAT 100; BMI 25.8
[2022-05-10 12:58] LABS: Glucose, Whole Blood 550 mg/dL (60-115)
[2022-05-10 16:53] LABS: Glucose, Whole Blood 342 mg/dL (60-115)
[2022-05-10 21:28] LABS: MANUAL DIFF FLAG NO
[2022-05-10 21:30] LABS: Basophils Percent Auto 0.4 % (0-2); Eosinophils Percent Auto 0.2 % (0-4); Hematocrit 47.6 % (42.0-52.0); Hemoglobin 16.7 g/dl (14.0-18.0); Imm Gran Abs Auto 0.01 X10*3/uL (0.00-0.03); Imm Gran Pct Auto 0.1 % (0.0-0.4); Lymphocytes Absolute Auto 2.1 X10*3/uL (1.2-4.9); Lymphocytes Percent Auto 25.1 % (20-40); Mean Corpuscular HGB Conc 35.1 g/dl (31.0-36.0); Mean Corpuscular Hemoglobin 28.7 pg (27.0-33.0); Mean Corpuscular Volume 81.8 fL (80.0-98.0); Mean Platelet Volume 9.4 fL (9.4-12.4); Monocytes Absolute Auto 0.9 X10*3/uL (0.1-1.2); Monocytes Percent Auto 10.4 % (2-11); Neutrophils Absolute Auto 5.3 x10*3/uL (2.0-8.3); Neutrophils Percent Auto 63.8 % (45-73); Platelet Count 334 X10*3/uL (160-400); Red Blood Count 5.82 X10*6/uL (4.60-5.80); Red Cell Distribution Width 11.9 % (11.0-16.0); White Blood Count 8.3 X10*3/uL (4.8-10.8)
[2022-05-10 21:34] LABS: VBG Base Excess -2.9 mmol/L; VBG HCO3 22 mmol/L (22-26); VBG pCO2 39 mmHg; VBG pH 7.36 (7.32-7.43); VBG pO2 40 mmHg
[2022-05-10 21:35] LABS: Venous Blood Gas Refer to POC result
[2022-05-10 21:47] LABS: Alanine Aminotransferase 9 U/L (0-40); Albumin Level 4.9 g/dL (3.5-5.0); Alkaline Phosphatase 77 U/L (39-117); Anion Gap 24 (12-20); Aspartate Amino Transferase 10 U/L (5-37); Bilirubin Direct 0.2 mg/dL (0.0-0.5); Bilirubin Total 0.7 mg/dL (0.0-1.0); Blood Urea Nitrogen 11 mg/dL (9-16); Calcium 10.3 mg/dL (8.4-10.2); Carbon Dioxide 21 mmol/L (22-29); Chloride 90 mmol/L (96-108); Creatinine Clr Calc Pharmacy 84.9; Estimated Glomerular Filt Rate > 60; Glucose Random 302 mg/dL (60-115); Potassium 4.4 mmol/L (3.3-5.1); Sodium 131 mmol/L (135-145); Total Protein 7.9 g/dL (6.5-8.0)
[2022-05-10 22:07] LABS: Acetone, serum QL Moderate (Negative)
[2022-05-10 22:49] VITALS: BP 153/95; PULSE 96; RESP 17; TEMP 37; O2SAT 100
[2022-05-10 22:53] LABS: Glucose, Whole Blood 304 mg/dL (60-115)
--- OUTSIDE RECORDS SUMMARY | 2022-05-10 22:54 | XMS_ITS | Continuity of Care Document ---
:1995 Author Organization [facility] Address [address] [place] [address]- Care Team Providers Name Role Phone Papi Olivo MD Primary Care Physician Encounter [facility] Date(s): 02/01/22 - 03/03/22 [facility] [address] [place] [id number] Allergies, Adverse Reactions, Alerts No Known Allergies Immunizations Given and Recorded Vaccine Date Status Refusal Reason SARS-CoV-2 (COVID-19) mRNA BNT-162b2 vac 06/05/21 Recorde d SARS-CoV-2 (COVID-19) mRNA BNT-162b2 vac 05/15/21 Recorde d Medications BD INSULIN SYRINGES 1/2 ML 31 G X 6 MM BD INSULIN SYRINGES 1/2 ML 31 G X 6 MM, See Instructions, # 100 each, Refills 5, Tot. Refills 5, Maintenance, USE TO INJECT INSULIN 2x DAILY Dx E10.9, 09/01/20 10:51:00 EST, Compound, 167.64, cm, 01/22/19 11:10:00 EDT, Height, 56.5, kg, 02/23/19 19... Start Date: 09/01/20 Status: OrderedBD Ultra-Fine 33G Lancets See Instructions, # 200 each, Refills 5, Tot. Refills 5, Maintenance, use as directed for Type 1 Diabetes Mellitus, 01/22/19 10:33:48 EDT, Compound Start Date: 01/22/19 Stop Date: 07/21/19 Status: OrderedFREESTYLE OLIVIA 14 DAY READER FREESTYLE OLIVIA 14 DAY READER, See Instructions, # 1 Unknown, 0 Refills, USE DIRECTED FOR TYPE 2 DIABETES MELLITUS, 167, cm, 07/07/21 11:21:00 EST, Height, 67.2, kg, 04/01/21 18:45:00 EDT, Dry Weight Start Date: 02/04/22 Status: OrderedFreestyle Olivia Monitor See Instructions, # 1 each, Refills 0, Tot. Refills 0, Maintenance, use as directed for Type 2 Diabetes Mellitus, 09/01/20 15:49:00 EST, Supply, 167.64, cm, 01/22/19 11:10:00 EDT, Height, 56.5, kg, 02/23/19 19:35:00 EDT, Dry Weight Start Date: 09/01/20 Stop Date: 10/01/20 Status: OrderedFreestyle Olivia Sensor See Instructions, # 2 each, Refills 5, Tot. Refills 5, Maintenance, Change every 14 days for BG monitoring for Type 2 Diabetes Mellitus (E11.9), 01/04/22 11:20:00 EDT, 14 day sensor., Supply, 167, cm, 07/07/21 11:21:00 EST, Height, 67.2, kg, 04/01/21... Start Date: 01/04/22 Stop Date: 07/03/22 Status: OrderedFreestyle Lite Test Strips See Instructions, # 100 each, Refills 11, Tot. Refills 11, Maintenance, test SMBG 3 times daily. T1DM/E10.9, 05/02/18 14:15:55 EDT, Compound Start Date: 05/02/18 Stop Date: 04/27/19 Status: OrderedFreestyle Lite Test Strips See Instructions, # 200 each, Tot. Refills 5, Maintenance, use as directed for Type 1 Diabetes Mellitus, 01/22/19 10:34:20 EDT, Compound Start Date: 01/22/19 Stop Date: 02/21/19 Status: OrderedHumaLOG Mix 75/25 subcutaneous suspension See Instructions, 40 units before breakfast and 45 units before dinner, E11.65, # 30 mL, 5 Refills, Maintenance, 10/27/20 16:51:00 EDT, Suspension, [id number], dup script, original was sent on 09/01/20., 40 units before breakfast and 45 units b... Start Date: 10/27/20 Status: Orderedinsulin lispro 100 units/mL injectable solution See Instructions, to be used via insulin pump TDD 110-120 daily, # 15 mL, 4 Refills, Maintenance, 11/09/21 13:41:00 EDT, [id number], Partial fill upon patient request if the prescription is fora schedule II opioid drug., 167, cm, 07/07/21 11:... Start Date: 11/09/21 Status: OrderedNovoLIN 70/30 FlexPen subcutaneous suspension 55 units, Subcutaneous Infusion, 2 times a day with meals, Please take 55 units twice a day with meals. E10.6, # 45 mL, 3 Refills, Maintenance, 07/07/21 11:45:00 EST, [id number], Partial fill upon patient request if the prescription is for... Start Date: 07/07/21 Status: OrderedPen [place], 31 G x 8 mm BD Ultra Fine III See Instructions, # 200 each, Refills 6, Tot. 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 father had T1DM Social History Social History Type Response Smoking Status Tobacco user in household: N o; Current some day smoker entered on: 03/11/16 Sex
--- OUTSIDE RECORDS SUMMARY | 2022-05-10 22:54 | XMS_ITS | Continuity of Care Document ---
:1996 Author Organization [facility] Address [address] [place] [phone]- Care Team Providers Name Role Phone Pallavi AGUSTIN, Papi Primary Care Physician [place] [facility] [place] 12[place]09/19 [facility] [address] [place] [id number]- [facility] Attending Physician: Monserrat Quispe MD Admitting Physician: Monserrat Quispe MD Allergies, Adverse Reactions, Alerts Substance Reaction Severity Status NKA Active Medications BD INSULIN SYRINGES 1/2 ML 31 G X 6 MM BD INSULIN SYRINGES 1/2 ML 31 G X 6 MM, See Instructions, # 100 each, Refills 5, Tot. Refills 5, Maintenance, USE TO INJECT INSULIN 2x DAILY Dx E10.9, 05/02/18 14:15:17 EDT, Compound Start Date: 05/02/18 Status: OrderedBD Ultra-Fine 33G Lancets See Instructions, # 200 each, Refills 5, Tot. Refills 5, Maintenance, use as directed for Type 1 Diabetes Mellitus, 01/22/19 10:33:48 EDT, Compound Start Date: 01/22/19 Stop Date: 07/21/19 Status: OrderedBD Ultra-Fine Insulin Syringe 0.5cc 31G 6mm BD Ultra-Fine Insulin Syringe 0.5cc 31G 6mm, See Instructions, # 150 each, Refills 5, Tot. Refills 5, Maintenance, use with insulin 4x daily, E10.9, 06/09/16 12:49:21, Compound Start Date: 06/09/16 Status: Orderedergocalciferol 41488 iu oral capsule 1 capsule = 50,000 International_Units, By Mouth, Every week, # 5 capsule, 0 Refills, Maintenance, 12/17/14 23:41:02, 1 capsule By Mouth Every week Start Date: 12/17/14 Status: OrderedFreestyle loree [place] Freestyle loree [place], See Instructions, # 1 units, Refills 1, Tot. Refills 1, Maintenance, Use to read loree sensor 5 times daily. Used to test BG 5 times daily. For T2 DM/E10, 11/25/17 13:06:20 EDT,Compound Start Date: 11/25/17 Status: OrderedFreestyle loree sensors Freestyle loree sensors, See Instructions, # 3 each, Refills 11, Tot. Refills 11, Maintenance, Used to measure blood glucose continuously. Change sensor every 10 days. For T2 DM/E10., 11/25/17 13:06:16EDT, Compound Start Date: 11/25/17 Status: OrderedFreestyle Lite Lancets See Instructions, # 200 each, Refills 5, Tot. Refills 5, Maintenance, use as directed for Type 1 Diabetes Mellitus, 2-3 times a day, 08/14/12 15:18:39 Start Date: 08/14/12 Stop Date: 02/10/13 Status: OrderedFreestyle Lite Monitor See Instructions, # 1 each, Refills 5, Tot. Refills 5, Maintenance, use as directed for Type 1 Diabetes Mellitus, 04/24/14 16:23:16, Compound Start Date: 04/24/14 Stop Date: 05/24/14 Status: OrderedFreestyle Lite Monitor See Instructions, # 1 each, Refills 0, Tot. Refills 0, Maintenance, use up to 4 times daily as directed for Type 2 Diabetes Mellitus (E11.9)., 11/06/18 11:13:17 EDT, Compound Start Date: 11/06/18 Stop Date: 12/06/18 Status: OrderedFreestyle Lite Test Strips See Instructions, [...] Start Date: 01/22/19 Stop Date: 02/21/19 Status: OrderedFreestyle precision gege-test strips Freestyle precision gege-test strips, See Instructions, # 50 each, Refills 11, Tot. Refills 11, Maintenance, Used to test blood glucose 2 times daily. For T2 DM/E10., 11/25/17 13:06:11 EDT, Compound Start Date: 11/25/17 Status: OrderedGlucagon Emergency Kit See Instructions, # 1 kit, Maintenance, Use as instructed to treat severe low blood sugar reaction, dx E11.65, 12/31/15 12:54:50, Compound Start Date: 12/31/15 Status: OrderedGlucerna Glucerna, See Instructions, # 60 can, Refills 4, Tot. Refills 4, Maintenance, 2 cans daily for signficant weight loss. T2DM/E11.9 and R63.4, 01/10/18 10:53:44 EDT, Compound Start Date: 01/10/18 Status: OrderedHumaLOG Mix 75/25 subcutaneous suspension See Instructions, 35 units before breakfast and 45 units before dinner, # 3 mL, 5 Refills, Maintenance, 01/22/19 11:47:35 EDT, Suspension, 35 units before breakfast and 45 units before dinner Start Date: 01/22/19 Status: OrderedInsulin Syringe, BD Ultra-Fine 0.3 cc 31 G x 8 mm (5/16in) See Instructions, # 100 each, Refills 5, Tot. Refills 5, Maintenance, use as directed for Type 1 Diabetes Mellitus, 01/22/19 10:33:21 EDT, Compound Start Date: 01/22/19 Stop Date: 07/21/19 Status: OrderedPen [place], 31 G x 5 mm BD Ultra Fine III See Instructions, # 100 each, Refills 5, Tot. Refills 5, Maintenance, use to inject insulin 2 times daily. for T2DM/E11, 11/25/17 11:56:04 EDT, Compound Start Date: 11/25/17 Stop Date: 05/24/18 Status: OrderedViactiv Soft Calcium Chews Calcium with Vitamin D and K oral tablet, chewable See Instructions, take 2 daily; please give chocolate flavor, # 1 box, 6 Refills, Maintenance, 04/11/14 17:30:00, take 2 daily; please give chocolate flavor Start Date: 04/11/14 Status: OrderedZofran 4 mg oral tablet 1 tablet = 4 mg, By Mouth, Every 8 hours, PRN as needed for nausea/vomiting, # 10 tablet, 0 Refills,Maintenance, 02/21/19 19:19:41 EDT, Tablet Start Date: 02/21/19 Stop Date: 02/24/19 Status: Ordered Problem List Condition Effective Dates Status Health Status Informant Obesity(Confirmed) Active Type 2 diabetes mellitus(Confirmed) Active Vitamin D deficiency(Confirmed) Active Social History Social History Type Response Smoking Status Tobacco user in household: N o; Current some day smoker entered on: 03/11/16 Sex
--- OUTSIDE RECORDS SUMMARY | 2022-05-10 22:54 | XMS_ITS | Continuity of Care Document ---
:1996 Author Organization [facility] Address [address] [place] [address]- Care Team Providers Name Role Phone Papi Olivo MD Primary Care Physician [place] [facility] [place] Date(s): 08/03/21 - 09/03/[address] [id number] Attending Physician: Leah Ash MD Admitting Physician: Leah Ash MD Referring Physician: Papi Olivo MD Allergies, Adverse Reactions, Alerts No Known Allergies Medications BD INSULIN SYRINGES 1/2 ML 31 [...] Start Date: 01/22/19 Stop Date: 07/21/19 Status: OrderedFreestyle [place] Monitor See Instructions, # 1 each, Refills 0, Tot. Refills 0, Maintenance, use as directed for Type 2 Diabetes Mellitus, 09/01/20 15:49:00 EST, Supply, 167.64, cm, 01/22/19 11:10:00 EDT, Height, 56.5, kg, 02/23/19 19:35:00 EDT, Dry Weight Start Date: 09/01/20 Stop Date: 10/01/20 Status: OrderedFreestyle [place] Sensor See Instructions, for 30 days, # 2 each, Refills 5, Tot. Refills 5, Hard Stop 01/04/22 11:20:00 EDT,Change every 14 days for BG monitoring for Type 2 Diabetes Mellitus (E11.9), 07/08/21 11:20:00 EST, 14 day sensor., Supply, 167, cm, 07/07/21 11:21:00... Start Date: 07/08/21 Stop Date: 01/04/22 Status: OrderedFreestyle [place] Sensor See Instructions, # [...] 5 Refills, Maintenance, 10/27/20 16:51:00 EDT, Suspension, [facility]/pharmacy #[id number], dup script, original was sent on 09/01/20., 40 units before breakfast and 45 units b... Start Date: 10/27/20 Status: OrderedNovoLIN 70/30 FlexPen subcutaneous suspension 55 units, Subcutaneous Infusion, 2 times a day with meals, Please take 55 units twice a day with meals. E10.6, # 45 mL, 3 Refills, Maintenance, 07/07/21 11:45:00 EST, [facility]/pharmacy #[id number], Partial fill upon patient request if the prescription is for... Start Date: 07/07/21 Status: OrderedPen [place], 31 G x 8 mm BD Ultra Fine III See Instructions, # 200 each, Refills 6, Tot. Refills 6, Maintenance, Please use to inject insulin 2times per day E10.6, 01/22/22 14:05:00 EDT, Supply, 167, cm, 07/07/21 11:21:00 EST, Height, 67.2, kg, 04/01/21 18:45:00 EDT, Dry Weight Start Date: 01/22/22 Stop Date: 08/20/22 Status: OrderedPen [place], 31 G x 8 mm BD Ultra Fine III See Instructions, for 30 days, # 150 each, Refills 11, Tot. Refills 11, Hard Stop 01/22/22 14:05:00 EDT, use as 4 times daily as directed with insulin pens for Type 2 Diabetes Mellitus (E11.9), 01/27/21 14:05:00 EDT, Supply, 167.64, cm, 01/27/21 12:55... Start Date: 01/27/21 Stop Date: 01/22/22 Status: Ordered Problem List Condition Effective Dates [...]
--- OUTSIDE RECORDS SUMMARY | 2022-05-10 22:54 | XMS_ITS | Continuity of Care Document ---
:1996 Author Organization [facility] Address [address] [place] [address]- Care Team Providers Name Role Phone Pallavi AGUSTIN, Papi Primary Care Physician [place] [facility] [place] 05[place]15/20 [facility] [address] [place] [id number]- [facility] Allergies, Adverse Reactions, Alerts Substance Reaction Severity [...] 12:49:21, Compound Start Date: 06/09/16 Status: Orderedergocalciferol 68491 iu oral capsule 1 capsule = 50,000 International_Units, By Mouth, Every week, # 5 capsule, 0 Refills, Maintenance, 12/17/14 23:41:02, 1 capsule By Mouth Every week Start Date: 12/17/14 Status: OrderedFreestyle loree [place] Freestyle loree [place], See Instructions, # 1 units, Refills 1, [...] before breakfast and 45 units before dinner, E11.65 PT MUST MAKE/KEEP F/UAPPT FOR FURTHER REFILLS, # 30 mL, 1 Refills, Maintenance, 04/15/20 14:36:00 EDT, Suspension, [facility]/pharmacy #[id number], 35 units before breakfast and 45 uni... Start Date: 04/15/20 Status: OrderedInsulin Syringe, BD Ultra-Fine 0.3 cc 31 G x 8 mm (5/16in) See Instructions, # 100 each, Refills 5, Tot. Refills 5, Maintenance, use as directed for Type 1 Diabetes Mellitus, 01/22/19 10:33:21 EDT, Compound Start Date: 01/22/19 Stop Date: 07/21/19 Status: OrderedPen [place], 31 G x 5 mm BD Ultra [...]
--- OUTSIDE RECORDS SUMMARY | 2022-05-10 22:54 | XMS_ITS | Continuity of Care Document ---
:1996 Author Organization [facility] Address [address] [place] [address]- Care Team Providers Name Role Phone Pallavi AGUSTIN, Papi Primary Care Physician Encounter [facility] [place] Date(s): 11/09/19 - 11/19/19 [facility] [address] [place] [address] [facility] Attending Physician: Gloria Loja Admitting Physician: AdmGloria kilgore Referring Physician: AdmtrGloria Allergies, Adverse Reactions, Alerts Substance Reaction Severity [...] 12:49:21, Compound Start Date: 06/09/16 Status: Orderedergocalciferol 14703 iu oral capsule 1 capsule = 50,000 International_Units, By Mouth, Every week, # 5 capsule, 0 Refills, Maintenance, 12/17/14 23:41:02, 1 capsule By Mouth Every week Start Date: 12/17/14 Status: OrderedFreestyle loree [place] Freestyle loree [place], See Instructions, # 1 units, Refills 1, [...] 0.3 cc 31 G x 8 mm (/16in) See Instructions, # 100 each, Refills 5, Tot. Refills 5, Maintenance, use as directed for Type 1 Diabetes Mellitus, 01/22/19 10:33:21 EDT, Compound Start Date: 01/22/19 Stop Date: 07/21/19 Status: OrderedPen [place], 31 G x 5 mm BD Ultra [...]
--- OUTSIDE RECORDS SUMMARY | 2022-05-10 22:54 | XMS_ITS | Continuity of Care Document ---
:1996 Author Organization [facility] Address [address] [place] [address]- Care Team Providers Name Role Phone Pallavi AGUSTIN, Papi Primary Care Physician Encounter [facility] [place] Date(s): 06/26/21 - 07/26/21 [facility] [address] [place] [address] [id number] Allergies, Adverse Reactions, Alerts Substance Reaction Severity [...] 10/01/20 Status: OrderedFreestyle Olivia Sensor See Instructions, for 30 days, # [...] 5 Refills, Maintenance, 10/27/20 16:51:00 EDT, Suspension, [facility]/pharmacy #[id number], dup script, original was sent on [...] is for... Start Date: 07/07/21 Status: OrderedPen [place], 31 G x 8 mm BD Ultra Fine III See Instructions, # 200 each, Refills 6, Tot. Refills 6, Maintenance, Please use to inject insulin 2times per day E10.6, 01/22/22 14:05:00 EDT, Supply, 167, cm, 07/07/21 11:21:00 EST, Height, 67.2, kg, 04/01/21 18:45:00 EDT, Dry Weight Start Date: 01/22/22 Stop Date: 08/20/22 Status: OrderedPen [place], 31 G x 8 mm BD Ultra [...]
--- OUTSIDE RECORDS SUMMARY | 2022-05-10 22:54 | XMS_ITS | Continuity of Care Document ---
:1996 Author Organization [facility] Address [address] [place] [address]- Care Team Providers Name Role Phone Papi Olivo MD Primary Care Physician [place] [facility] [id number] Date(s): 06/19/20 - 07/31/20 [facility] [address] [place] [id number] Attending Physician: Leah Ash MD Admitting Physician: Leah Ash MD Referring Physician: Papi Olivo MD Allergies, Adverse Reactions, Alerts Substance Reaction [...] 12:49:21, Compound Start Date: 06/09/16 Status: Orderedergocalciferol 53325 iu oral capsule 1 capsule = 50,000 International_Units, By Mouth, Every week, # 5 capsule, 0 Refills, Maintenance, 12/17/14 23:41:02, 1 capsule By Mouth Every week Start Date: 12/17/14 Status: OrderedFreestyle loree [place] Freestyle loree [place], See Instructions, # 1 units, Refills 1, [...] 1 Refills, Maintenance, 04/15/20 14:36:00 EDT, Suspension, [facility]/pharmacy #[id number], 35 units before breakfast and 45 uni... Start Date: 04/15/20 Status: OrderedInsulin Syringe, BD Ultra-Fine 0.3 cc 31 G x 8 mm (5/16in) See Instructions, # 100 each, Refills 5, Tot. Refills 5, Maintenance, use as directed for Type 1 Diabetes Mellitus, 01/22/19 10:33:21 EDT, Compound Start Date: 01/22/19 Stop Date: 07/21/19 Status: OrderedPen [place], 31 G x 5 mm BD Ultra [...]
--- OUTSIDE RECORDS SUMMARY | 2022-05-10 22:54 | XMS_ITS | Continuity of Care Document ---
:1996 Author Organization [facility] Address [address] [place] [address]- Care Team Providers Name Role Phone Papi Olivo MD Primary Care Physician [place] [facility] [place] 03/12/21 - 05/07/21 [facility] [address] [place] [id number] Attending Physician: Christian Jacobo NP Admitting Physician: Donnell REYES, Christian Geiger Referring Physician: Papi Olivo MD Allergies, Adverse [...] Sensor See Instructions, # 2 each, Refills 11, Tot. Refills 11, Maintenance, Change every 14 days for BG monitoring for Type 2 Diabetes Mellitus (E11.9), 01/27/21 13:50:00 EDT, 14 day sensor., Supply, 167.64,cm, 01/27/21 12:55:00 EDT, Height, 56.5, kg, 02/05... Start Date: 01/27/21 Stop Date: 01/22/22 Status: OrderedFreestyle Lite Test Strips See Instructions, [...] 5 Refills, Maintenance, 10/27/20 16:51:00 EDT, Suspension, [facility]/pharmacy #[id number], dup script, original was sent on 09/01/20., 40 units before breakfast and 45 units b... Start Date: 10/27/20 Status: OrderedPen [place], 31 G x 8 mm BD Ultra Fine III See Instructions, # 150 each, Refills 11, Tot. Refills 11, Maintenance, use as 4 times daily as directed with insulin pens for Type 2 Diabetes Mellitus (E11.9), 01/27/21 14:05:00 EDT, Supply, 167.64, cm, 01/27/21 12:55:00 EDT, Height, 56.5, kg, 02/23/... Start Date: 01/27/21 Stop Date: 01/22/22 Status: [...]
--- OUTSIDE RECORDS SUMMARY | 2022-05-10 22:54 | XMS_ITS | Continuity of Care Document ---
:1996 Author Organization [facility] Address [address] [place] [address]- Care Team Providers Name Role Phone Papi Olivo MD Primary Care Physician Encounter [facility] [place] Date(s): 08/18/21 - 09/17/[address] [id number] Attending Physician: Gloria Loja Admitting Physician: AdmtrGloria Referring Physician: Admtr, Ar8 Allergies, Adverse Reactions, Alerts No Known Allergies [...] Dry Weight Start Date: 09/01/20 Stop Date: 2/24/21 Status: OrderedFreestyle Olivia Sensor See Instructions, for [...] 5 Refills, Maintenance, 10/27/20 16:51:00 EDT, Suspension, [facility]/pharmacy #[id number], dup script, original was sent on 09/01/20., 40 units before breakfast and 45 units b... Start Date: 10/27/20 Status: OrderedNovoLIN 70/30 FlexPen subcutaneous suspension 55 units, Subcutaneous Infusion, 2 times a day with meals, Please take 55 units twice a day with meals. E10.6, # 45 mL, 3 Refills, Maintenance, 07/07/21 11:45:00 EST, [facility]/pharmacy #[id number], Partial fill upon patient request if the prescription is for... Start Date: 07/07/21 Status: OrderedPen [place], 31 G x 8 mm BD Ultra Fine III See Instructions, # 200 each, Refills 6, Tot. Refills 6, Maintenance, Please use to inject insulin 2times per day E10.6, 01/22/22 14:05:00 EDT, Supply, 167, cm, 07/07/21 11:21:00 EST, Height, 67.2, kg, 04/01/21 18:45:00 EDT, Dry Weight Start Date: 01/22/22 Stop Date: 08/20/22 Status: OrderedPen [place], 31 G x 8 mm BD Ultra [...]
--- OUTSIDE RECORDS SUMMARY | 2022-05-10 22:54 | XMS_ITS | Continuity of Care Document ---
:1996 Author Organization [facility] Address [address] [place] [address]- Care Team Providers Name Role Phone Pallavi AGUSTIN, Papi Primary Care Physician Encounter [facility] Date(s): 03/31/21 - 04/01/[address] [id number] Discharge Disposition: A-D/C AMA Attending Physician: Kenney Brown DO Admitting Physician: Renzo Garcia DO Referring Physician: Checo Ventura MD Allergies, Adverse Reactions, Alerts Substance Reaction [...] 5 Refills, Maintenance, 10/27/20 16:51:00 EDT, Suspension, [facility]/pharmacy #[id number], dup script, original was sent on 09/01/20., 40 units before breakfast and 45 units b... Start Date: 10/27/20 Status: OrderedPen [place], 31 G x 8 mm BD Ultra Fine III See Instructions, # 150 each, Refills 11, Tot. Refills 11, Maintenance, use as 4 times daily as directed with insulin pens for Type 2 Diabetes Mellitus (E11.9), 01/27/21 14:05:00 EDT, Supply, 167.64, cm, 01/27/21 12:55:00 EDT, Height, 56.5, kg, 02/23/... 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 father had T1DM Results Radiology Reports Exam Date Time Procedure Performing Provider Status 03/31/21 10:11 PM Chest 2 Views Frontal and Lat Steph Badillo e; Auth (Verified) Notes:(Chest 2 Views Frontal and Lat) Reason For Exam: Shortness of Breath, Fever;Other:RESULT: Chest 2 Views Frontal and Lat Chest 2 Views Frontal and Lat Hx of Present Illness: pt reports weakness, diarrhea, vomiting, shortness of breath and abd pain forthe last 2 days. pt denies any fevers at home. pt denies any dysuria. pt reports reduced po intake. pt is not coid vaccinated, pt denies any recent sick contacts.; Reason: Other:; Shortness of Breath, Fever; Clinical Question(s): Pneumonia COMPARISON: Multiple priors, most recent 01/21/2019. FINDINGS: LINES AND TUBES: None. LUNGS AND PLEURA: Clear lungs. Normal pulmonary vascularity. No pleural effusion. No pneumothorax. HEART, MEDIASTINUM AND WILVER: Heart is normal in size. Normal upper mediastinal and hilar contour. BONES AND SOFT TISSUES: No acute abnormality. IMPRESSION: No acute abnormality. WSN: [id number] Ordering Physician: Checo Ventura Dictated By: Brandon Singletary MD Dictated Date/Time: 04/01/21 9:19 am Reviewed By: Brandon Singletary MD Signed By: Brandon Singletary MD Signed Date/Time: 04/01/21 9:19 am Transcribed By: ALCIRA Transcribed Date/Time: 04/01/21 9:18 am Vital Signs Most recent to oldest 1 2 3 [Reference Range]: Height 167 cm 167 cm 167 cm (04/01/21 6:39 PM) (04/01/21 4:32 PM) (04/01/21 10: 43 AM) Weight 67.2 kg 67.2 kg 66 kg (04/01/21 6:39 PM) (04/01/21 4:00 PM) (04/01/21 10: 43 AM) Oxygen Saturation [94-100 99 % 99 % 100 % %] (04/01/21 6:39 PM) (04/01/21 4:32 PM) (04/01/21 10: 43 AM) Pulse Rate [55-90 bpm] 64 bpm 64 bpm 81 bpm (04/01/21 6:39 PM) (04/01/21 4:32 PM) (04/01/21 10: 43 AM) Body Mass Index 24.1 23.67 23.67 [18.5-24.99] (04/01/21 6:39 PM) (04/01/21 10:43 AM) (04/01/21 6: 45 AM) Blood Pressure 138/90 mm Hg 138/90 mm Hg 144/101 mm Hg [90-138/55-84 mm Hg] (04/01/21 6:39 PM) (04/01/21 4:32 PM) *H* (04/01/21 10:43 A M) Respiratory Rate [16-30 16 br/min 16 br/min 13 br/mi n br/min] (04/01/21 6:39 PM) (04/01/21 4:32 PM) *L* (04/01/21 10:43 A M) Temperature [96.8-100.4 97.8 DegF 97.8 DegF 98.3 Deg F DegF] (04/01/21 6:39 PM) (04/01/21 4:32 PM) (04/01/21 6:4 5 AM) Liters per Minute 0 L/min (04/01/21 4:32 PM) Mode of Delivery (Oxygen) Room air Room air Room a ir (04/01/21 6:39 PM) (04/01/21 4:32 PM) (04/01/21 10: 43 AM) Blood pressure sites Arm, left Arm, right Arm, left (04/01/21 6:39 PM) (04/01/21 4:32 PM) (04/01/21 10: 43 AM) Temperature Route Oral Temporal Oral (04/01/21 6:39 PM) (04/01/21 4:32 PM) (04/01/21 6:4 5 AM) Dry Weight 67.2 kg 67.2 kg 66 kg (04/01/21 6:39 PM) (04/01/21 4:00 PM) (04/01/21 10: 43 AM) Weight Obtained Via Standing scale (04/01/21 6:39 PM) Dry Weight Obtained Via Patient/family stated (04/01/21 6:39 PM) Social History Social History Type Response Smoking Status Tobacco user in household: N o; Current some day smoker entered on: 03/11/16 Sex
--- OUTSIDE RECORDS SUMMARY | 2022-05-10 22:54 | XMS_ITS | Continuity of Care Document ---
:1996 Author Organization [facility] Address [address] [place] [id number]- Care Team Providers Name Role Phone Papi Olivo MD Primary Care Physician Encounter [facility] [place] Date(s): 01/24/20 - 02/28/20 [facility] [address] [place] [address] [facility] Attending Physician: Monserrat Quispe MD Admitting Physician: Monserrat Quispe MD Referring Physician: Papi Olivo MD Allergies, [...] 12:49:21, Compound Start Date: 06/09/16 Status: Orderedergocalciferol 39262 iu oral capsule 1 capsule = 50,000 International_Units, By Mouth, Every week, # 5 capsule, 0 Refills, Maintenance, 12/17/14 23:41:02, 1 capsule By Mouth Every week Start Date: 12/17/14 Status: OrderedFreestyle loree [place] Freestyle loree [place], See Instructions, # 1 units, Refills 1, [...] Date: 01/22/19 Stop Date: 07/21/19 Status: OrderedPen [place], 31 G x 5 mm BD Ultra Fine III See Instructions, # 100 each, Refills 5, Tot. Refills 5, Maintenance, use to inject insulin 2 times daily. for T2DM/E11, 11/25/17 11:56:04 EDT, Compound Start Date: 11/25/17 Stop Date: 10/17/18 Status: OrderedViactiv Soft Calcium Chews Calcium with [...]
--- OUTSIDE RECORDS SUMMARY | 2022-05-10 22:54 | XMS_ITS | Continuity of Care Document ---
:1996 Author Organization [facility] Endocrinology and D darryl Address [address] [place] [address]- Care Team Providers Name Role Phone Pallavi AGUSTIN, Papi Primary Care Physician Encounter [facility] [place] Date(s): 05/27/20 - 07/19/20 [facility] Endocr[facility]ology and Diabetes [address] [place] [id number] Attending Physician: Leah Ash MD Admitting Physician: Leah Ash MD Allergies, Adverse Reactions, Alerts Substance Reaction [...] 12:49:21, Compound Start Date: 06/09/16 Status: Orderedergocalciferol 38584 iu oral capsule 1 capsule = 50,000 International_Units, By Mouth, Every week, # 5 capsule, 0 Refills, Maintenance, 12/17/14 23:41:02, 1 capsule By Mouth Every week Start Date: 12/17/14 Status: OrderedFreestyle loree [place] Freestyle loree [place], See Instructions, # 1 units, Refills 1, [...] 1 Refills, Maintenance, 04/15/20 14:36:00 EDT, Suspension, [id number], 35 units before breakfast and 45 uni... Start Date: 04/15/20 Status: OrderedInsulin Syringe, BD Ultra-Fine 0.3 cc 31 G x 8 mm (5/16in) See Instructions, # 100 each, Refills 5, Tot. Refills 5, Maintenance, use as directed for Type 1 Diabetes Mellitus, 01/22/19 10:33:21 EDT, Compound Start Date: 01/22/19 Stop Date: 07/21/19 Status: OrderedPen [place], 31 G x 5 mm BD Ultra [...]
--- OUTSIDE RECORDS SUMMARY | 2022-05-10 22:54 | XMS_ITS | Continuity of Care Document ---
:1996 Author Organization [facility] Endocrinology and D darryl Address [address] [place] [address]- Care Team Providers Name Role Phone Papi Olivo MD Primary Care Physician Encounter [facility] [place] Date(s): 09/01/20 - 10/01/20 [facility] Endocrinology and Diabetes [address] [place] [id number] Attending Physician: Admtr, Gloria Admitting Physician: Admtr, Ar8 Referring Physician: Admtr, Ar8 Allergies, Adverse Reactions, Alerts Substance Reaction Severity [...] Start Date: 01/22/19 Stop Date: 07/21/19 Status: Orderedergocalciferol 70268 iu oral capsule 1 capsule = 50,000 International_Units, By Mouth, Every week, # 5 capsule, 0 Refills, Maintenance, 12/17/14 23:41:02, 1 capsule By Mouth Every week Start Date: 12/17/14 Status: OrderedFreestyle [place] Monitor See Instructions, # 1 each, Refills 0, Tot. Refills 0, Maintenance, use as directed for Type 2 Diabetes Mellitus, 09/01/20 15:49:00 EST, Supply, 167.64, cm, 01/22/19 11:10:00 EDT, Height, 56.5, kg, 02/23/19 19:35:00 EDT, Dry Weight Start Date: 09/01/20 Stop Date: 10/01/20 Status: OrderedFreestyle [place] Sensor See Instructions, # 2 each, Refills 6, Tot. Refills 6, Maintenance, use as directed for Type 2 Diabetes Mellitus, 09/01/20 15:49:00 EST, 14 day sensor., Supply, 167.64, cm, 01/22/19 11:10:00 EDT, Height, 56.5, kg, 02/23/19 19:35:00 EDT, Dry Weight Start Date: 09/01/20 Stop Date: 03/30/21 Status: OrderedFreestyle Lite Test Strips See Instructions, [...] Start Date: 01/22/19 Stop Date: 02/21/19 Status: OrderedGlucerna Glucerna, See Instructions, # 60 can, Refills 4, Tot. Refills 4, Maintenance, 2 cans daily for signficant weight loss. T2DM/E11.9 and R63.4, 01/10/18 10:53:44 EDT, Compound Start Date: 01/10/18 Status: OrderedHumaLOG Mix 75/25 subcutaneous suspension See Instructions, 40 units before breakfast and 45 units before dinner, E11.65, # 30 mL, 6 Refills, Maintenance, 09/01/20 10:50:00 EST, [facility], [id number], 40 units before breakfast and 45 units before dinner, E11.65, 167.64, cm, 06/17/19... Start Date: 09/01/20 Status: OrderedZofran 4 mg oral tablet 1 [...]
--- OUTSIDE RECORDS SUMMARY | 2022-05-10 22:55 | XMS_ITS | Continuity of Care Document ---
:1996 Author Organization [facility] Endocrinology and D darryl Address [address] [place] [address]- Care Team Providers Name Role Phone Papi Olivo MD Primary Care Physician Encounter [place] Date(s): 03/17/22 - 04/16/22 [facility] Endocrinology and Diabetes [address] [place] [id number] Allergies, Adverse Reactions, Alerts No Known Allergies [...] Stop Date: 02/21/19 Status: OrderedHumaLOG Mix 75/25 KwikPen subcutaneous suspension See Instructions, please take 50 units in am and 60 units in pm before meals E11.9, # 30 mL, 6 Refills, Maintenance, 03/25/22 8:12:00 EDT, [facility]/pharmacy #[id number], Partial fill upon patient request if the prescription is for a schedule II opioid drug.,... Start Date: 03/25/22 Status: OrderedHumaLOG Mix 75/25 subcutaneous suspension See [...] cm, 07/07/21 11:... Start Date: 11/09/21 Status: OrderedPen [place], 31 G x 5 mm BD Ultra Fine III See Instructions, # 300 each, Refills 2, Tot. Refills 2, Maintenance, use as directed for Type 2 Diabetes Mellitus to 2 injections per day, 03/25/22 8:14:00 EDT, Supply, 167, cm, 03/25/22 7:56:00 EDT, Height, 67.2, kg, 04/01/21 18:45:00 EDT, Dry Weight Start Date: 03/25/22 Stop Date: 12/20/22 Status: OrderedPen [place], 31 G x 8 mm BD Ultra Fine III See Instructions, # 200 each, Refills 6, Tot. Refills 6, Maintenance, Please use to inject insulin 2times per day E10.6, 01/22/22 14:05:00 EDT, Supply, 167, cm, 07/07/21 11:21:00 EST, Height, 67.2, kg, 04/01/21 18:45:00 EDT, Dry Weight Start Date: 01/22/22 Stop Date: 08/20/22 Status: OrderedViagra 50 mg oral tablet 1 tablet = 50 mg, By Mouth, Daily, 1 hour before sexual activity, # 5 tablet, 3 Refills, Maintenance, 03/25/22 8:16:00 EDT, Tablet, [id number], [facility], 167, cm, 03/25/22 7:56:00 EDT, Height, 67.2, kg, 04/01/21 18:45:00 EDT,... 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 father had T1DM Social History Social History Type Response Smoking Status Tobacco user in household: N o; Current some day smoker entered on: 03/11/16 Sex Care Team PersonnelName: Papi Olivo MD Address: [address] [place] [address]
--- OUTSIDE RECORDS SUMMARY | 2022-05-10 22:55 | XMS_ITS | Continuity of Care Document ---
:1996 Author Organization [facility] Endocrinology and D darryl Address [address] [place] [address]- Care Team Providers Name Role Phone Papi Olivo MD Primary Care Physician [place] [facility] [place] - 02/07/21 [facility] Endocrinology and Diabetes [address] [place] [id number] Allergies, Adverse Reactions, Alerts Substance Reaction Severity [...] for 30 days, # 2 each, Refills 6, Tot. Refills 6, Hard Stop 03/30/21 15:49:00 EDT,use as directed for Type 2 Diabetes Mellitus, 09/01/20 15:49:00 EST, 14 day sensor., Supply, 167.64,cm, 01/22/19 11:10:00 EDT, Height, 56.5, kg, 02/05... Start Date: 09/01/20 Stop Date: 03/30/21 Status: OrderedFreestyle [place] Sensor See Instructions, # [...] 5 Refills, Maintenance, 10/27/20 16:51:00 EDT, Suspension, [facility]/pharm[facility] #[id number], dup script, original was sent on 09/01/20., 40 units before breakfast and 45 units b... Start Date: 10/27/20 Status: OrderedLantus Solostar Pen 100 units/mL subcutaneous solution = 42 units, Subcutaneous Injection, Daily at bedtime, # 30 mL, 11 Refills, Maintenance, 01/27/21 13:51:00 EDT, Solution, [id number], Partial fill upon patient request if the prescription is fora schedule II opioid drug., 167.64, cm, 01/27/21... Start Date: 01/27/21 Stop Date: 04/21/21 Status: OrderedNovoLOG FlexPen 100 units/mL subcutaneous solution See Instructions, 14 -30 units Subcutaneous Injection 3 times daily with meals., # 30 mL, 11 Refills, Maintenance, 01/27/21 13:51:00 EDT, [id number], Partial fill upon patient request if the prescription is for a schedule II opioid drug., 167.... Start Date: 01/27/21 Status: Orderedpantoprazole 40 mg oral delayed release tablet = 40 mg, By Mouth, Daily, # 21 capsule, 0 Refills, Maintenance, 12/30/20 16:56:00 EDT, EC Tablet, 167.64, cm, 01/22/19 11:10:00 EDT, Height, 56.5, kg, 02/23/19 19:35:00 EDT, Dry Weight Start Date: 12/30/20 Stop Date: 01/20/21 Status: OrderedPen [place], 31 G x 8 mm BD Ultra Fine III See Instructions, # 150 each, Refills 11, Tot. Refills 11, Maintenance, use as 4 times daily as directed with insulin pens for Type 2 Diabetes Mellitus (E11.9), 01/27/21 14:05:00 EDT, Supply, 167.64, cm, 01/27/21 12:55:00 EDT, Height, 56.5, kg, ... Start Date: 01/27/21 Stop Date: 01/22/22 Status: [...]
--- OUTSIDE RECORDS SUMMARY | 2022-05-10 22:55 | XMS_ITS | Continuity of Care Document ---
:1996 Author Organization [facility] Endocrinology and D darryl Address [address] [place] [address]- Care Team Providers Name Role Phone Pallavi AGUSTIN, Papi Primary Care Physician Encounter [facility] [place] Date(s): 01/29/20 - 02/28/20 [facility] Endocrinology and Diabetes [address] [place] [address]- [facility] Attending Physician: Gloria Loja Admitting Physician: AdmGloria [...] 12:49:21, Compound Start Date: 06/09/16 Status: Orderedergocalciferol 09455 iu oral capsule 1 capsule = 50,000 International_Units, By Mouth, Every week, # 5 capsule, 0 Refills, Maintenance, 12/17/14 23:41:02, 1 capsule By Mouth Every week Start Date: 12/17/14 Status: OrderedFreestyle loree [place] Freestyle loree [place], See Instructions, # 1 units, Refills 1, [...] Date: 01/22/19 Stop Date: 07/21/19 Status: OrderedPen [place], 31 G x 5 mm BD Ultra [...]
--- OUTSIDE RECORDS SUMMARY | 2022-05-10 22:55 | XMS_ITS | Continuity of Care Document ---
:1996 Author Organization [facility] Address [address] [place] [address]- Care Team Providers Name Role Phone Papi Olivo MD Primary Care Physician Encounter [facility] [place] [id number] Date(s): 01/30/21 - 03/07/[address] [address]- Attending Physician: Leah Ash MD Admitting Physician: [...] 5 Refills, Maintenance, 10/27/20 16:51:00 EDT, Suspension, [facility]/pharmacy #[id number], dup script, original was sent [...] Date: 12/30/20 Stop Date: 01/20/21 Status: OrderedPen [place], 31 G x 8 mm BD Ultra [...]
--- OUTSIDE RECORDS SUMMARY | 2022-05-10 22:55 | XMS_ITS | Continuity of Care Document ---
:1996 Author Organization [facility] Endocrinology and D darryl Address [address] [place] [address]- Care Team Providers Name Role Phone Papi Olivo MD Primary Care Physician [place] [facility] [place]21 - 02/12/21 [facility] Endocrinology and Diabetes [address] [place] [id number] Attending Physician: Kaushik Ramos MD Admitting Physician: Kaushik Ramos MD Allergies, Adverse Reactions, Alerts Substance Reaction [...] 5 Refills, Maintenance, 10/27/20 16:51:00 EDT, Suspension, [facility]/pharmacy #[id number], dup script, original was sent on [...] Date: 12/30/20 Stop Date: 01/20/21 Status: OrderedPen [place], 31 G x 8 mm BD Ultra [...]
--- OUTSIDE RECORDS SUMMARY | 2022-05-10 22:55 | XMS_ITS | Continuity of Care Document ---
:1996 Author Organization [facility] Address [address] [place] [address]- Care Team Providers Name Role Phone Papi Olivo MD Primary Care Physician Encounter [facility] [place] Date(s): 02/11/22 - 02/11/[address] [address]- Discharge Disposition: A-D/C Walkout Attending Physician: Not on Staff, Attending MD Admitting Physician: Not on Staff, Admitting MD Referring Physician: Not on Staff, Referring MD Allergies, Adverse Reactions, Alerts No Known [...] Date: 01/22/19 Stop Date: 07/21/19 Status: OrderedFREESTYLE MARCIAL 14 DAY READER FREESTYLE MARCIAL 14 DAY READER, See Instructions, # 1 Unknown, 0 Refills, USE DIRECTED FOR TYPE 2 DIABETES MELLITUS, 167, cm, 07/07/21 11:21:00 EST, Height, 67.2, kg, 04/01/21 18:45:00 EDT, Dry Weight Start Date: 02/04/22 Status: OrderedFreestyle [place] Monitor See Instructions, # 1 each, Refills 0, Tot. Refills 0, Maintenance, use as directed for Type 2 Diabetes Mellitus, 09/01/20 15:49:00 EST, Supply, 167.64, cm, 01/22/19 11:10:00 EDT, Height, 56.5, kg, 02/23/19 19:35:00 EDT, Dry Weight Start Date: 09/01/20 Stop Date: 10/01/20 Status: OrderedFreestyle [place] Sensor See Instructions, # 2 each, Refills [...] is for... Start Date: 07/07/21 Status: OrderedPen [place], 31 G x 8 mm BD Ultra [...] peptide thus likely autoimmune. father had T1DM Vital Signs Most recent to oldest [Reference Range]: 1 2 Oxygen Saturation [94-100 %] 98 % 99 % (02/11/22 8:09 AM) (02/11/22 2:48 AM) Pulse Rate [55-90 bpm] 116 bpm 99 bpm *H* *H* (02/11/22 8:09 AM) (02/11/22 2:48 AM) Blood Pressure [90-138/55-84 mm Hg] 159/95 mm Hg 133/ 75 mm Hg *H* (02/11/22 2:48 AM) (02/11/22 8:09 AM) Respiratory Rate [16-30 br/min] 20 br/min 20 br/mi n (02/11/22 8:09 AM) (02/11/22 2:48 AM) Temperature [96.8-100.4 DegF] 98.3 DegF 99.1 DegF (02/11/22 8:09 AM) (02/11/22 2:48 AM) Mode of Delivery (Oxygen) Room air Room air (02/11/22 8:09 AM) (02/11/22 2:48 AM) Blood pressure sites Arm, left (02/11/22 8:09 AM) Temperature Route Oral Oral (02/11/22 8:09 AM) (02/11/22 2:48 AM) Social History Social History Type Response Smoking Status Tobacco user in household: N o; Current some day smoker entered on: 03/11/16 Sex
--- OUTSIDE RECORDS SUMMARY | 2022-05-10 22:55 | XMS_ITS | Continuity of Care Document ---
:1996 Author Organization [facility] Endocrinology and D darryl Address [address] [place] [address]- Care Team Providers Name Role Phone Papi Olivo MD Primary Care Physician Encounter [facility] [place] Date(s): 11/08/19 - 12/29/19 [facility] Endocrinology and Diabetes [address] [place] [address]- [facility] Attending Physician: Nilsa AGUSTIN, Ibitorolena Referring Physician: Papi Olivo MD Allergies, Adverse [...] 12:49:21, Compound Start Date: 06/09/16 Status: Orderedergocalciferol 16464 iu oral capsule 1 capsule = 50,000 International_Units, By Mouth, Every week, # 5 capsule, 0 Refills, Maintenance, 12/17/14 23:41:02, 1 capsule By Mouth Every week Start Date: 12/17/14 Status: OrderedFreestyle loree [place] Freestyle loree [place], See Instructions, # 1 units, Refills 1, [...] Date: 01/22/19 Stop Date: 07/21/19 Status: OrderedPen [place], 31 G x 5 mm BD Ultra [...]
--- OUTSIDE RECORDS SUMMARY | 2022-05-10 22:55 | XMS_ITS | Continuity of Care Document ---
:1996 Author Organization [facility] Endocrinology and D darryl Address [address] [place] [address]- Care Team Providers Name Role Phone Papi Olivo MD Primary Care Physician [place] [facility] [place] 03/25/22 - 04/24/22 [facility] Endocrinology and Diabetes [address] [place] [id number] Attending Physician: Admtr, Gloria Admitting Physician: Admtr, [...] mL, 6 Refills, Maintenance, 03/25/22 8:12:00 EDT, [facility]/pharmacy #[id number], Partial fill upon patient request if [...] 07/07/21 11:... Start Date: 11/09/21 Status: OrderedPen [place], 31 G x 5 mm BD Ultra Fine III See Instructions, # 300 each, Refills 2, Tot. Refills 2, Maintenance, use as directed for Type 2 Diabetes Mellitus to 2 injections per day, 03/25/22 8:14:00 EDT, Supply, 167, cm, 03/25/22 7:56:00 EDT, Height, 67.2, kg, 04/01/21 18:45:00 EDT, Dry Weight Start Date: 03/25/22 Stop Date: 12/20/22 Status: OrderedPen [place], 31 G x 8 mm BD Ultra [...] Care Team PersonnelName: Papi Olivo MD Address: [address] [place] [address]
--- OUTSIDE RECORDS SUMMARY | 2022-05-10 22:55 | XMS_ITS | Continuity of Care Document ---
:1996 Author Organization [facility] Endocrinology and D ravingavi Address [address] [place] [address]- Care Team Providers Name Role Phone Papi Olivo MD Primary Care Physician En[place] [facility] [place] Date(s): 12/22/21 - 01/21/22 [facility] Endocrinology and Diabetes [address] [place] [id number] Attending Physician: Admtr, Gloria Admitting [...] 5 Refills, Maintenance, 10/27/20 16:51:00 EDT, Suspension, [facility]/pharmacy #[id number], dup script, original was sent on [...] mL, 3 Refills, Maintenance, 07/07/21 11:45:00 EST, [facility]/pharmacy #[id number], Partial fill upon patient request if the prescription is for... Start Date: 07/07/21 Status: OrderedPen [place], 31 G x 8 mm BD Ultra Fine III See Instructions, # 200 each, Refills 6, Tot. Refills 6, Maintenance, Please use to inject insulin 2times per day E10.6, 01/22/22 14:05:00 EDT, Supply, 167, cm, 07/07/21 11:21:00 EST, Height, 67.2, kg, 04/01/21 18:45:00 EDT, Dry Weight Start Date: 01/22/22 Stop Date: 08/20/22 Status: OrderedPen [place], 31 G x 8 mm BD Ultra [...]
--- OUTSIDE RECORDS SUMMARY | 2022-05-10 22:55 | XMS_ITS | Continuity of Care Document ---
:1996 Author Organization [facility] Endocrinology and D darryl Address [address] [place] [address]- Care Team Providers Name Role Phone Pallavi AGUSTIN, Papi Primary Care Physician [place] [facility] [place] Date(s): 11/29/19 - 12/29/19 [facility] Endocrinology and Diabetes [address] [place] [address]- [facility] Attending Physician: Gloria Loja Admitting [...] 12:49:21, Compound Start Date: 06/09/16 Status: Orderedergocalciferol 22376 iu oral capsule 1 capsule = 50,000 International_Units, By Mouth, Every week, # 5 capsule, 0 Refills, Maintenance, 12/17/14 23:41:02, 1 capsule By Mouth Every week Start Date: 12/17/14 Status: OrderedFreestyle loree [place] Freestyle loree [place], See Instructions, # 1 units, Refills 1, [...] Date: 01/22/19 Stop Date: 07/21/19 Status: OrderedPen [place], 31 G x 5 mm BD Ultra [...]
--- OUTSIDE RECORDS SUMMARY | 2022-05-10 22:55 | XMS_ITS | Continuity of Care Document ---
:1996 Author Organization [facility] Address [address] [place] [address]- Care Team Providers Name Role Phone Papi Olivo MD Primary Care Physician [place] [facility] [place] Date(s): 12/29/20 - 12/30/[address] [address] Discharge Disposition: A-D/C Home Attending Physician: Judith Hall MD Admitting Physician: Thelma Estes MD Referring Physician: Not on Staff, Referring MD Allergies, Adverse Reactions, Alerts Substance Reaction [...] 5 Refills, Maintenance, 10/27/20 16:51:00 EDT, Suspension, [facility]/pharmacy #[id number], dup script, original was sent on 09/01/20., 40 units before breakfast and 45 units b... 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 father had T1DM Vital Signs Most recent to oldest 1 2 3 [Reference Range]: Oxygen Saturation [94-100 %] 92 % 100 % 100 % *L* (12/30/20 7:46 AM) (12/30/20 2:00 AM) (12/30/20 11:39 AM) Pulse Rate [55-90 bpm] 71 bpm 68 bpm 58 bpm (12/30/20 11:39 AM) (12/30/20 7:46 AM) (12/30/20 2: 00 AM) Blood Pressure [90-138/55-84 122/73 mm Hg 114/52 mm Hg 132 /80 mm Hg mm Hg] (12/30/20 11:39 AM) (12/30/20 7:46 AM) (12/30/20 2: 00 AM) Respiratory Rate [16-30 18 br/min 18 br/min 18 br/mi n br/min] (12/30/20 11:39 AM) (12/30/20 7:46 AM) (12/30/20 5: 20 AM) Temperature [96.8-100.4 DegF] 97.9 DegF 98.2 DegF 98 DegF (12/30/20 11:39 AM) (12/30/20 7:46 AM) (12/30/20 2: 00 AM) Mode of Delivery (Oxygen) Room air Room air Room a ir (12/30/20 11:39 AM) (12/30/20 7:46 AM) (12/30/20 2: 00 AM) Blood pressure sites Arm, left Arm, left Arm, left (12/30/20 11:39 AM) (12/30/20 7:46 AM) (12/30/20 2: 00 AM) Temperature Route Oral Oral Oral (12/30/20 11:39 AM) (12/30/20 7:46 AM) (12/30/20 2: 00 AM) Weight Obtained Via UTO (12/29/20 1:33 PM) Dry Weight Obtained Via UTO (12/29/20 1:33 PM) Social History Social History Type Response Smoking Status Tobacco user in household: N o; Current some day smoker entered on: 03/11/16 Sex
--- OUTSIDE RECORDS SUMMARY | 2022-05-10 22:55 | XMS_ITS | Continuity of Care Document ---
:1996 Author Organization [facility] Address [address] [place] [address]- Care Team Providers Name Role Phone Papi Olivo MD Primary Care Physician [id number] Date(s): 02/05/21 - 03/07/[address] [id number] Attending Physician: Admtr, Ar8 Admitting Physician: Admtr, Ar8 Referring Physician: Admtr, [...] 5 Refills, Maintenance, 10/27/20 16:51:00 EDT, Suspension, [facility]/pharmacy #[id number], dup script, original was sent [...] Date: 12/30/20 Stop Date: 01/20/21 Status: OrderedPen [place], 31 G x 8 mm BD Ultra [...] o; Current some day smoker entered on: 8/4/16 Sex
--- OUTSIDE RECORDS SUMMARY | 2022-05-10 22:55 | XMS_ITS | Continuity of Care Document ---
:1996 Author Organization [facility] Endocrinology and D ra[facility] Address [address] [place] [address]- Care Team Providers Name Role Phone Pallavi AGUSTIN, Papi Primary Care Physician [place] [facility] [place] 07/21[place]21 - 08/20/21 [facility] Endocrinology and Diabetes [address] [place] [id number] Allergies, Adverse Reactions, Alerts No Known [...] Maintenance, 10/27/20 16:51:00 EDT, Suspension, [facility]/pharmacy #[id number], dup script, original was sent [...] is for... Start Date: 07/07/21 Status: OrderedPen [place], 31 G x 8 mm BD Ultra Fine III See Instructions, # 200 each, Refills 6, Tot. Refills 6, Maintenance, Please use to inject insulin 2times per day E10.6, 01/22/22 14:05:00 EDT, Supply, 167, cm, 07/07/21 11:21:00 EST, Height, 67.2, kg, 04/01/21 18:45:00 EDT, Dry Weight Start Date: 01/22/22 Stop Date: 08/20/22 Status: OrderedPen [place], 31 G x 8 mm BD Ultra [...]
--- OUTSIDE RECORDS SUMMARY | 2022-05-10 22:55 | XMS_ITS | Continuity of Care Document ---
:1995 Author Organization [facility] D darryl Address [address] [place] [address]- Care Team Providers Name Role Phone Papi Olivo MD Primary Care Physician En[place] [facility] [place]): 04/07/22 - 05/07/22 [facility] Diabetes [address] [place] [id number] Allergies, Adverse Reactions, Alerts No Known [...] mL, 6 Refills, Maintenance, 03/25/22 8:12:00 EDT, [facility]/pharmacy #[id number], Partial fill upon patient request if the [...] 07/07/21 11:... Start Date: 11/09/21 Status: OrderedPen [place], 31 G x 5 mm BD Ultra Fine III See Instructions, # 300 each, Refills 2, Tot. 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 father had T1DM Social History Social History Type Response Smoking Status Tobacco user in household: N o; Current some day smoker entered on: 03/11/16 Sex Patient Care team information PersonnelName: Papi Olivo MD Address: Address: [address] [place] [id number]
--- OUTSIDE RECORDS SUMMARY | 2022-05-10 22:55 | XMS_ITS | Continuity of Care Document ---
:1995 Author Organization [facility] Address [address] [place] [address]- Care Team Providers Name Role Phone Papi Olivo MD Primary Care Physician Encounter [facility] Date(s): 01/20/22 - 01/20/[address] [address]- Discharge Disposition: A-D/C Walkout Attending Physician: Not [...] Maintenance, 10/27/20 16:51:00 EDT, Suspension, [facility]/pharmacy #[id number], dup script, original was [...] is for... Start Date: 07/07/21 Status: OrderedPen [place], 31 G x 8 mm BD Ultra Fine III See Instructions, # 200 each, Refills 6, Tot. Refills 6, Maintenance, Please use to inject insulin 2times per day E10.6, 01/22/22 14:05:00 EDT, Supply, 167, cm, 07/07/21 11:21:00 EST, Height, 67.2, kg, 04/01/21 18:45:00 EDT, Dry Weight Start Date: 01/22/22 Stop Date: 08/20/22 Status: OrderedPen [place], 31 G x 8 mm BD Ultra [...]
--- OUTSIDE RECORDS SUMMARY | 2022-05-10 22:55 | XMS_ITS | Continuity of Care Document ---
:1995 Author Organization [facility]ology and D darryl Address [address] [place] [id number]- Care Team Providers Name Role Phone Papi Olivo MD Primary Care Physician [place] [facility] [place] 05/07/21 [facility] Diabetes [address] [place] [id number] Attending Physician: Admtr, Gloria [...] 5 Refills, Maintenance, 10/27/20 16:51:00 EDT, Suspension, [facility]/pharmacy #[id number], dup script, original was sent on 09/01/20., 40 units before breakfast and 45 units b... Start Date: 10/27/20 Status: OrderedPen [place], 31 G x 8 mm BD Ultra [...]
--- OUTSIDE RECORDS SUMMARY | 2022-05-10 22:55 | XMS_ITS | Continuity of Care Document ---
:1995 Author Organization [facility]ocr[facility]ology and D dar[facility] Address [address] [place] [id number]- Care Team Providers Name Role Phone Papi Olivo MD Primary Care Physician [place] [facility] [place] 01/27/21 - 02/26/21 [facility] End[facility]ology and Diabetes [address] [place] [id number] Attending Physician: Admtr, Gloria Admitting Physician: AdmtrGloria Referring Physician: Admtr, [id number] [...] 5 Refills, Maintenance, 10/27/20 16:51:00 EDT, Suspension, [facility]/pharmacy #[id number], dup script, original was [...] Date: 12/30/20 Stop Date: 01/20/21 Status: OrderedPen [place], 31 G x 8 mm BD Ultra [...]
--- OUTSIDE RECORDS SUMMARY | 2022-05-10 22:55 | XMS_ITS | Continuity of Care Document ---
:1996 Author Organization [facility]ology and D dar[facility] Address [address] [place] [address]- Care Team Providers Name Role Phone Papi Olivo MD Primary Care Physician [place] [facility] [place]/09/21 - 02/22/21 [facility] Diabetes [address] [place] [id number] Attending Physician: Kaushik Ramos MD Admitting Physician: Kaushik Ramos MD Referring Physician: Papi Olivo MD Allergies, [...] 5 Refills, Maintenance, 10/27/20 16:51:00 EDT, Suspension, [facility]/pharmacy #[id number], dup script, original was sent on [...] Date: 12/30/20 Stop Date: 01/20/21 Status: OrderedPen [place], 31 G x 8 mm BD Ultra [...]
--- OUTSIDE RECORDS SUMMARY | 2022-05-10 22:55 | XMS_ITS | Continuity of Care Document ---
:1995 Author Organization [facility] D dar[facility] Address [address] [place] [id number]- Care Team Providers Name Role Phone Papi Olivo MD Primary Care Physician En[place] [facility] [place] Date(s): 10/01/21 - 10/31/21 [facility] Diabetes [address] [place] [id number] Allergies, Adverse Reactions, Alerts No [...] 5 Refills, Maintenance, 10/27/20 16:51:00 EDT, Suspension, [facility]/pharmacy #[id number], dup script, original was [...] is for... Start Date: 07/07/21 Status: OrderedPen [place], 31 G x 8 mm BD Ultra Fine III See Instructions, # 200 each, Refills 6, Tot. Refills 6, Maintenance, Please use to inject insulin 2times per day E10.6, 01/22/22 14:05:00 EDT, Supply, 167, cm, 07/07/21 11:21:00 EST, Height, 67.2, kg, 04/01/21 18:45:00 EDT, Dry Weight Start Date: 01/22/22 Stop Date: 08/20/22 Status: OrderedPen [place], 31 G x 8 mm BD Ultra [...]
--- OUTSIDE RECORDS SUMMARY | 2022-05-10 22:55 | XMS_ITS | Continuity of Care Document ---
:1996 Author Organization [facility] dar[facility] Address [address] [place] [address]- Care Team Providers Name Role Phone Papi Olivo MD Primary Care Physician [place] [facility] [place]s): 03/17/22 - 04/16/22 [facility] Diabetes [address] [place] [id number] Allergies, Adverse Reactions, Alerts No Known Allergies [...] mL, 6 Refills, Maintenance, 03/25/22 8:12:00 EDT, [facility]/pharmacy #[id number], Partial fill upon patient request if the [...] 07/07/21 11:... Start Date: 11/09/21 Status: OrderedPen [place], 31 G x 5 mm BD Ultra Fine III See Instructions, # 300 each, Refills 2, Tot. Refills 2, Maintenance, use as directed for Type 2 Diabetes Mellitus to 2 injections per day, 03/25/22 8:14:00 EDT, Supply, 167, cm, 03/25/22 7:56:00 EDT, Height, 67.2, kg, 04/01/21 18:45:00 EDT, Dry Weight Start Date: 03/25/22 Stop Date: 12/20/22 Status: OrderedPen [place], 31 G x 8 mm BD Ultra [...] Care Team PersonnelName: Papi Olivo MD Address: [address] [place] [address]
--- OUTSIDE RECORDS SUMMARY | 2022-05-10 22:55 | XMS_ITS ---
:1996 Author Organization [facility] Address [address] [place] [address] Care Team Providers Name Role Phone Hammad Scanlon Jr Unavailable Unavailable PROBLEMS Type Condition ICD9-CM Code [id number] Code Onset Condition SNO MED Code Dates Status Problem Erosive K22.10 Active [id number] esophagitis Problem Duodenal ulcer K26.9 Active 35507 009 ALLERGIES No Known Allergies ENCOUNTERS Encounter Location Date Diagnosis [facility] [address], [facility] [address] [address] [facility] [address], [facility] [address] [address] [facility] [address], Er osive esophagitis [facility] [address] K22.10 [address] [facility] [address], [facility] [address] [address] [facility] [place] Outpatient [address] Sep, Erosive esophag itis [place] [id number] K22.10 [facility] [address], [facility] [address] [address] [facility] [address], [facility] [address] [address] [facility] Inpatient [address] Jun, [place] [phone] IMMUNIZATIONS Vaccine Route Administration Date Status Influenza Unknown Apr 08, 2021 Administered SOCIAL HISTORY Qualifiers Date Never Smoker REASON FOR REFERRAL FUNCTIONAL STATUS PLAN OF CARE Activity Details Follow Up 1 Year Reason: VITAL SIGNS Weight 157 lbs 2021-12-31 Height 66 in 2021-12-31 BMI 25.34 kg/m2 2021-12-31 Temperature 98 degrees Fahrenheit 2021-12-31 Blood pressure systolic 000 mm Hg 2021-12-31 Blood pressure diastolic 00 mm Hg 2021-12-31 MEDICATIONS Medication Instructions Dosage Frequency Start End Date Duration Stat us Date Zofran Active Pantoprazole Orally Once a 1 tablet 24h December, day(s) Ac tive Sodium 40 MG day 2021 Sertraline HCl Active NovoLIN 70/30 Active FlexPen PROCEDURES Procedure Date Ordered Result Body Site DOC RSN FOR NOT SCREEN/REC F/U HBP December 31, 2021 Pt scrn tbco id as non user December 31, 2021 UPPER GI ENDOSCOPY, BIOPSY Jun 24, 2021 DOC MEDS VERIFIED W/PT OR RE December 31, 2021 UPPER GI ENDOSCOPY, BIOPSY Sep 18, 2021 RESULTS Name Result Date Reference Range Pathology 2021-09-18 Glucose, Whole Blood 2021-09-18 Glucose, Whole Blood 142 60-115 Pathology 2021-09-18 Pathology 2021-06-25 REASON FOR VISIT was in ER on 01/20/2022, ov recall, Patient presents today for esophagitis, pathology , erosive esophagitis, Hospital again regarding DKA , pathology, nausea, vomiting, abdominal pain Insurance Providers [facility] Member Patient Patient Patient Patient Patient Subscriber Subscriber Subscriber Group Insurance Plan Plan Plan Plan ID Relationship Address Phone Name Date of ID Name Date of No Type Insurance Insurance Insurance Coverage to Subscriber Address Phone Name Dates Rachel [phone] Rachel self OLU [id number] [facility] [address] [place] [id number]
--- OUTSIDE RECORDS SUMMARY | 2022-05-10 22:55 | XMS_ITS | Continuity of Care Document ---
:1996 Author Organization [facility] Address [address] [place] [address]- Care Team Providers Name Role Phone Papi Olivo MD Primary Care Physician [place] [facility] [place] 02[place]21 [facility] Diabetes [address] [place] [id number] Attending Physician: Leah Ash [...] Date: 12/30/20 Stop Date: 01/20/21 Status: OrderedPen [place], 31 G x 8 mm BD Ultra [...]
--- OUTSIDE RECORDS SUMMARY | 2022-05-10 22:55 | XMS_ITS | Continuity of Care Document ---
:1996 Author Organization [facility] Endocrinology and D ravingavi Address [address] [place] [address]- Care Team Providers Name Role Phone Papi Olivo MD Primary Care Physician [place] [facility] [place] 09/23/21 - 01/21/22 [facility] Endocr[facility]ology [facility] Diabetes [address] [place] [id number] Attending Physician: Lian Valadez MD Admitting Physician: Lian Valadez MD Referring Physician: Papi Olivo MD Allergies, [...] 5 Refills, Maintenance, 10/27/20 16:51:00 EDT, Suspension, [facility]/pharmacy #[id number], dup script, original was sent on [...] mL, 3 Refills, Maintenance, 07/07/21 11:45:00 EST, [facility]/pharmacy #[id number], Partial fill upon patient request if the prescription is for... Start Date: 07/07/21 Status: OrderedPen [place], 31 G x 8 mm BD Ultra Fine III See Instructions, # 200 each, Refills 6, Tot. Refills 6, Maintenance, Please use to inject insulin 2times per day E10.6, 01/22/22 14:05:00 EDT, Supply, 167, cm, 07/07/21 11:21:00 EST, Height, 67.2, kg, 04/01/21 18:45:00 EDT, Dry Weight Start Date: 01/22/22 Stop Date: 08/20/22 Status: OrderedPen [place], 31 G x 8 mm BD Ultra [...]
--- NOTE | 2022-05-10 23:05 | ED_ITS ---
HPI - General Adult General Chief complaint: General Medical Stated complaint: DKA? Time Seen by Provider: 05/10/22 16:43 History of Present Illness HPI narrative: Patient is a 26-year-old male with a history of DKA in the past. Baseline supposed to be on insulin [id number] units twice a day. Patient has been taking his insulin once a day. Today he did not take any insulin. Noted his sugar to be high. Having abdominal pain mainly over the epigastric area. Having nausea but no vomiting. Patient had multiple history diabetic ketoacidosis. Denies any coughing congestion upper respiratory symptoms. Denies any chest pain. No shortness of breath no diaphoresis. Patient also has a history of cyclic vomiting. Denies using any marijuana since being discharged from the hospital. Related Data Home Medications Medication Instructions Recorded Confirmed sertraline 25 mg tablet 25 mg PO DAILY 12/28/21 04/30/22 insulin lispro 100 unit/mL See Rx Instructions .Route .COMPLEX 03/15/22 04/30/22 subcutaneous solution pantoprazole 40 mg tablet,delayed 1 tab PO DAILY 03/15/22 04/30/22 release insulin lispro protamine-lispro 50 unit subcut DAILY 04/30/22 04/30/22 100 unit/mL (75-25) subcutaneous pen insulin lispro protamine-lispro 60 unit subcut DAILY@1800 04/30/22 04/30/22 100 unit/mL (75-25) subcutaneous pen Previous Rx's Medication Instructions Recorded prochlorperazine maleate 10 mg 10 mg PO Q6H PRN nausea and 04/13/22 tablet (Compazine) vomiting #30 tabs Allergies Allergy/AdvReac Type Severity Reaction Status Date / Time passion fruit [PASSION FRUIT] Allergy Unknown UNK Verified 04/12/22 19:52 Review of Systems Review of Systems: No fever no chills Positive epigastric pain No chest pain or diaphoresis Yes all other systems are reviewed and are negative PMFSH Past Medical History Attestation statement: The following information was validated with the patient. Medical History Cyclical vomiting Diabetes Diabetic gastroparesis Diabetic keto-acidosis Esophageal ulcer Gastroparesis Leukocytosis Noncompliance with medication regimen Persistent hyperactive cannabis intoxication delirium Surgical History No pertinent past surgical history Family History Family History Other No family history of coronary artery disease Social History Social History Household Members: None Housing: Apartment Do you presently have visiting nurse or other home services: No Alcohol intake: never Patient Tobacco Use Status: Never used Tobacco Substance Use Type: Marijuana Advance Directives: Yes Advance Directives on File: Yes Advance Directives Date on File: 01/22/21 service: No Current occupational status: employed Physical Exam ED Vital Signs: Vital Signs - 24 hr 05/10/22 12:47 05/10/22 22:49 05/10/22 23:27 Temperature 98.8 F 98.6 F Pulse Rate 87 96 Respiratory Rate 18 17 16 Blood Pressure 164/108 H 153/95 H Pulse Oximetry 100 100 Oxygen Delivery Method Room Air Room Air BMI result Body Mass Index 25.8 Appearance: Alert. Oriented X3. No acute distress. Eyes: Pupils equal, round and reactive to light. ENT: Pharynx normal. Neck: Normal inspection. Neck supple. No lymph nodes noted. No crepitus CVS: Normal heart rate and rhythm. Pulses normal. Normal S1 and S2 Respiratory: No respiratory distress. Breath sounds normal. No Wheezing. No rales Abdomen: Soft and nontender. No rigidity. No distention. good BS x4 Skin: Skin warm and dry. Normal skin color. Normal skin turgor. Extremities: No lower extremity edema. Neurovascular intact to all extremities. No Lacerations. No Rash Neuro: Oriented X 3. No motor deficit. No sensory deficit. Moving all extermities. No slurred speech Medical Decision Making MDM Narrative Medical decision making narrative: Patient's postvoid bladder scan was done approximately 15 minutes after he voided over 600 cc. There is still proximally 180 cc in it however there is no overt retention. Patient's electrolytes showed a sodium of 131 likely related to an elevated sugar in the 300s range. Patient has had a slight anion gap of 24 with a bicarb that is at 21. Is moderate amount acetone. PH was normal. Patient was given insulin and also IV fluids. Monitor carefully. Sugars down to 150s range. First set of troponin was negative. Patient's EKG however did show a sinus pattern heart rate was 95 OR QRS QT within normal limits there is nonspecific J-point elevation in V2 with nonspecific T-wave flattening over the lateral leads. Lot of these findings were found previously. Will recheck patient's lab after IV fluids. P After 2 L of IV fluid. Patient's anion gap has completely resolved. Patient's bicarb is 21. Well-appearing. Will discharge patient home. Venous pH was 7.35 even before the IV fluids. Symptomatically feel much relief. CT scan of the abdomen showed no obstruction no abscess no perforation. Patient's 1st set of cardiac enzyme was negative. Second set a negative negative enzyme will discharge patient home. In stable condition. Patient explained the need to use his insulin on a regular basis. He is being discharged home in stable c ondition. Lab Data Result diagrams: 05/10/22 21:23 05/11/22 01:16 Labs: Lab Results 05/10/22 05/10/22 05/10/22 Range/Units 12:54 16:48 21:23 WBC 8.3 (4.8-10.8) X10*3/uL RBC 5.82 H (4.60-5.80) X10*6/uL Hgb 16.7 (14.0-18.0) g/dl Hct 47.6 (42.0-52.0) % MCV 81.8 (80.0-98.0) fL MCH 28.7 (27.0-33.0) pg MCHC 35.1 (31.0-36.0) g/dl RDW 11.9 (11.0-16.0) % Plt Count 334 (160-400) X10*3/uL MPV 9.4 (9.4-12.4) fL Immature Gran % (Auto) 0.1 (0.0-0.4) % Neut % (Auto) 63.8 (45-73) % Lymph % (Auto) 25.1 (20-40) % [place] % (Auto) 10.4 (2-11) % Eos % (Auto) 0.2 (0-4) % Baso % (Auto) 0.4 (0-2) % Lymph # (Auto) 2.1 (1.2-4.9) X10*3/uL [place] # (Auto) 0.9 (0.1-1.2) X10*3/uL Eos # (Auto) 0.0 (0.0-0.4) X10*3/uL Baso # (Auto) 0.0 (0.0-0.2) X10*3/uL Abs Immat Gran (auto) 0.01 (0.00-0.03) X10*3/uL Absolute Neuts (auto) 5.3 (2.0-8.3) x10*3/uL Absolute Nucleated RBC 0.000 (0.0-0.012) X10*3/uL Nucleated RBC % (auto) 0.0 (0.0-0.2) /100WBC VBG pH (7.32-7.43) VBG pCO2 mmHg VBG pO2 mmHg VBG HCO3 (22-26) mmol/L VBG O2 Saturation % VBG Base Excess mmol/L Sodium (135-145) mmol/L Potassium (3.3-5.1) mmol/L Chloride (96-108) mmol/L Carbon Dioxide (22-29) mmol/L Anion Gap (12-20) BUN (9-16) mg/dL Creatinine (0.5-1.4) mg/dL Estim Creat Clear Calc Estimated GFR POC Glucose 550 H* 342 H (60-115) mg/dL Random Glucose (60-115) mg/dL Calcium (8.4-10.2) mg/dL Magnesium (1.6-2.6) mg/dL Total Bilirubin (0.0-1.0) mg/dL Direct Bilirubin (0.0-0.5) mg/dL AST (5-37) U/L ALT (0-40) U/L Alkaline Phosphatase (39-117) U/L Troponin I High Sens (<3.5-35.0) ng/L Total Protein (6.5-8.0) g/dL Albumin (3.5-5.0) g/dL Urine Color Urine Appearance Urine pH (5.0-9.0) Ur Specific [place] (1.005-1.025) Urine Protein (Neg-Trace) mg/dL Urine Glucose (UA) (Negative) mg/dL Urine Ketones (Negative) mg/dL Urine Blood (Negative) Urine Nitrite (Negative) Ur Leukocyte Esterase (Negative) Urine RBC (0-2) /HPF Urine WBC (0-5) /HPF Ur Squamous Epith Cells (0-2) /HPF Urine Bacteria (None Seen) Hyaline Casts (0-2) /LPF Acetone, Qual (Negative) 05/10/22 05/10/22 05/10/22 Range/Units 21:23 21:29 22:48 WBC (4.8-10.8) X10*3/uL RBC (4.60-5.80) X10*6/uL Hgb (14.0-18.0) g/dl Hct (42.0-52.0) % MCV (80.0-98.0) fL MCH (27.0-33.0) pg MCHC (31.0-36.0) g/dl RDW (11.0-16.0) % Plt Count (160-400) X10*3/uL MPV (9.4-12.4) fL Immature Gran % (Auto) (0.0-0.4) % Neut % (Auto) (45-73) % Lymph % (Auto) (20-40) % [place] % (Auto) (2-11) % Eos % (Auto) (0-4) % Baso % (Auto) (0-2) % Lymph # (Auto) (1.2-4.9) X10*3/uL [place] # (Auto) (0.1-1.2) X10*3/uL Eos # (Auto) (0.0-0.4) X10*3/uL Baso # (Auto) (0.0-0.2) X10*3/uL Abs Immat Gran (auto) (0.00-0.03) X10*3/uL Absolute Neuts (auto) (2.0-8.3) x10*3/uL Absolute Nucleated RBC (0.0-0.012) X10*3/uL Nucleated RBC % (auto) (0.0-0.2) /100WBC VBG pH 7.36 (7.32-7.43) VBG pCO2 39 mmHg VBG pO2 40 mmHg VBG HCO3 22 (22-26) mmol/L VBG O2 Saturation 60.0 % VBG Base Excess -2.9 mmol/L Sodium 131 L (135-145) mmol/L Potassium 4.4 (3.3-5.1) mmol/L Chloride 90 L (96-108) mmol/L Carbon Dioxide 21 L (22-29) mmol/L Anion Gap 24 H (12-20) BUN 11 (9-16) mg/dL Creatinine 1.20 (0.5-1.4) mg/dL Estim Creat Clear Calc 84.9 Estimated GFR > 60 POC Glucose 304 H (60-115) mg/dL Random Glucose 302 H D (60-115) mg/dL Calcium 10.3 H D (8.4-10.2) mg/dL Magnesium 2.0 (1.6-2.6) mg/dL Total Bilirubin 0.7 (0.0-1.0) mg/dL Direct Bilirubin 0.2 (0.0-0.5) mg/dL AST 10 (5-37) U/L ALT 9 (0-40) U/L Alkaline Phosphatase 77 (39-117) U/L Troponin I High Sens (<3.5-35.0) ng/L Total Protein 7.9 (6.5-8.0) g/dL Albumin 4.9 (3.5-5.0) g/dL Urine Color Urine Appearance Urine pH (5.0-9.0) Ur Specific [place] (1.005-1.025) Urine Protein (Neg-Trace) mg/dL Urine Glucose (UA) (Negative) mg/dL Urine Ketones (Negative) mg/dL Urine Blood (Negative) Urine Nitrite (Negative) Ur Leukocyte Esterase (Negative) Urine RBC (0-2) /HPF Urine WBC (0-5) /HPF Ur Squamous Epith Cells (0-2) /HPF Urine Bacteria (None Seen) Hyaline Casts (0-2) /LPF Acetone, Qual Moderate H (Negative) 05/10/22 05/11/22 05/11/22 Range/Units 23:34 00:27 01:16 WBC (4.8-10.8) X10*3/uL RBC (4.60-5.80) X10*6/uL Hgb (14.0-18.0) g/dl Hct (42.0-52.0) % MCV (80.0-98.0) fL MCH (27.0-33.0) pg MCHC (31.0-36.0) g/dl RDW (11.0-16.0) % Plt Count (160-400) X10*3/uL MPV (9.4-12.4) fL Immature Gran % (Auto) (0.0-0.4) % Neut % (Auto) (45-73) % Lymph % (Auto) (20-40) % [place] % (Auto) (2-11) % Eos % (Auto) (0-4) % Baso % (Auto) (0-2) % Lymph # (Auto) (1.2-4.9) X10*3/uL [place] # (Auto) (0.1-1.2) X10*3/uL Eos # (Auto) (0.0-0.4) X10*3/uL Baso # (Auto) (0.0-0.2) X10*3/uL Abs Immat Gran (auto) (0.00-0.03) X10*3/uL Absolute Neuts (auto) (2.0-8.3) x10*3/uL Absolute Nucleated RBC (0.0-0.012) X10*3/uL Nucleated RBC % (auto) (0.0-0.2) /100WBC VBG pH (7.32-7.43) VBG pCO2 mmHg VBG pO2 mmHg VBG HCO3 (22-26) mmol/L VBG O2 Saturation % VBG Base Excess mmol/L Sodium 133 L (135-145) mmol/L Potassium 3.9 (3.3-5.1) mmol/L Chloride 99 (96-108) mmol/L Carbon Dioxide 21 L (22-29) mmol/L Anion Gap 17 (12-20) BUN 10 (9-16) mg/dL Creatinine 0.94 (0.5-1.4) mg/dL Estim Creat Clear Calc 108.4 Estimated GFR > 60 POC Glucose (60-115) mg/dL Random Glucose 159 H D (60-115) mg/dL Calcium 8.7 D (8.4-10.2) mg/dL Magnesium 1.8 (1.6-2.6) mg/dL Total Bilirubin 0.4 (0.0-1.0) mg/dL Direct Bilirubin 0.2 (0.0-0.5) mg/dL AST 9 (5-37) U/L ALT 7 (0-40) U/L Alkaline Phosphatase 56 D (39-117) U/L Troponin I High Sens 7.9 (<3.5-35.0) ng/L Total Protein 6.0 L D (6.5-8.0) g/dL Albumin 3.8 D (3.5-5.0) g/dL Urine Color Yellow Urine Appearance Clear Urine pH 5.5 (5.0-9.0) Ur Specific [place] 1.025 (1.005-1.025) Urine Protein Trace (Neg-Trace) mg/dL Urine Glucose (UA) >=1000 H (Negative) mg/dL Urine Ketones >=160 (Negative) mg/dL Urine Blood Negative (Negative) Urine Nitrite Negative (Negative) Ur Leukocyte Esterase Negative (Negative) Urine RBC 0-2 (0-2) /HPF Urine WBC 0-5 (0-5) /HPF Ur Squamous Epith Cells 0-2 (0-2) /HPF Urine Bacteria None Seen (None Seen) Hyaline Casts 0-2 (0-2) /LPF Acetone, Qual Small H (Negative) Discharge Plan Discharge Clinical Impression: Acute hyperglycemia Patient Disposition: Home, Self-Care Instructions: Diabetic Hyperglycemia (ED) Additional Instructions: Please take your insulin as prescribed Prescriptions: No Action sertraline 25 mg tablet 25 mg PO DAILY pantoprazole 40 mg tablet,delayed release (DR/EC) 1 tab PO DAILY insulin lispro 100 unit/mL solution See Rx Instructions .ROUTE .COMPLEX Rx Instructions: to be used per insulin pump 110 to 120 units per day prochlorperazine maleate [Compazine] 10 mg tablet 10 mg PO Q6H PRN (Reason: nausea and vomiting) Qty: 30 0RF insulin lispro protamin-lispro 100 unit/mL (75-25) insulin pen 50 unit subcut DAILY insulin lispro protamin-lispro 100 unit/mL (75-25) insulin pen 60 unit subcut DAILY@1800 Referrals: Papi Olivo MD [Primary Care Provider] -
[2022-05-10] MEDS: 0.9 % Sodium Chloride 1,000 ML 999 ML IV ×2 (23:07)
--- NOTE | 2022-05-10 23:09 | ECG_ITS ---
Test Reason : ABD PAIN Blood Pressure : / mmHG Vent. Rate : 095 BPM Atrial Rate : 095 BPM P-R Int : 146 ms QRS Dur : 088 ms QT Int : 326 ms P-R-T Axes : 039 029 009 degrees QTc Int : 409 ms Normal sinus rhythm Nonspecific T wave abnormality Abnormal ECG When compared with ECG of 13-APR-2022 01:55, Nonspecific T wave abnormality now evident in Inferior leads Nonspecific T wave abnormality, worse in Anterolateral leads Referred By: Gabby Mukherjee Electronically Signed By:AMARIS VARGAS
[2022-05-10] MEDS: iohexoL 350 MG/ML 100 ML INFUS..BTL IV (23:23)
[2022-05-10 23:27] VITALS: RESP 16
[2022-05-10] MEDS: HYDROmorphone HCl 0.5 MG/0.5 ML SYRINGE IVPUSH (23:27)
[2022-05-10] MEDS: ondansetron HCL 4 MG/2 ML VIAL IVPUSH (23:27)
[2022-05-10] MEDS: Insulin Regular, Human 100 UNIT/ML 3 ML VIAL IVPUSH (23:28)
[2022-05-10 23:43] LABS: Appearance Urine Clear; Color Urine Yellow; Glucose Urine UA >=1000 mg/dL (Negative); Leukocyte Esterase Urine Negative (Negative); Nitrite Urine Negative (Negative); PH 5.5 (5.0-9.0); Specific Gravity - Urine 1.025 (1.005-1.025); UMIC TRIGGER UACC YES; Urine Blood Negative (Negative); Urine Ketones >=160 mg/dL (Negative); Urine Protein Trace mg/dL (Neg-Trace)
[2022-05-11 00:36] LABS: Bacteria Urine None Seen (None Seen); Hyaline Casts Urine 0-2 /LPF (0-2); RBC Urine 0-2 /HPF (0-2); Squamous Epithelial Cell Urine 0-2 /HPF (0-2); WBC Urine 0-5 /HPF (0-5)
[2022-05-11 00:51] LABS: Troponin-I High Sensitivity 7.9 ng/L (<3.5-35.0)
[2022-05-11 01:47] LABS: Alanine Aminotransferase 7 U/L (0-40); Albumin Level 3.8 g/dL (3.5-5.0); Alkaline Phosphatase 56 U/L (39-117); Anion Gap 17 (12-20); Aspartate Amino Transferase 9 U/L (5-37); Bilirubin Direct 0.2 mg/dL (0.0-0.5); Bilirubin Total 0.4 mg/dL (0.0-1.0); Blood Urea Nitrogen 10 mg/dL (9-16); Calcium 8.7 mg/dL (8.4-10.2); Carbon Dioxide 21 mmol/L (22-29); Chloride 99 mmol/L (96-108); Creatinine Clr Calc Pharmacy 108.4; Estimated Glomerular Filt Rate > 60; Glucose Random 159 mg/dL (60-115); Magnesium 1.8 mg/dL (1.6-2.6); Potassium 3.9 mmol/L (3.3-5.1); Sodium 133 mmol/L (135-145)
[2022-05-11 01:48] LABS: Acetone, serum QL Small (Negative)
[2022-05-11 02:09] LABS: Troponin-I High Sensitivity 8.1 ng/L (<3.5-35.0)
--- NOTE | 2022-05-11 02:12 | PC.NURSE ---
Bladder scanned after patient voided voided 600 mL of urine-residual post void urine volume in pt's bladder 180 mL-unable to print bladder scan report. Dr. Mukherjee notified. This RN scanned patient's bladder 1:30 min after voidiing 237 mL of urine in patient's bladder. Dr. Mukherjee notified.
[2022-05-11 03:00] VITALS: BP 135/81; PULSE 87; RESP 16; TEMP 36.8; O2SAT 100
[2022-05-11 03:10] LABS: Glucose, Whole Blood 172 mg/dL (60-115)
[2022-05-11] MEDS: Acetaminophen 325 MG TABLET 650 MG PO (05:38)
[2022-05-11 05:51] VITALS: BP 134/85; PULSE 91; TEMP 36.8; O2SAT 98
== END 2022-05-11 05:53 | disposition home or self-care (01) ==
PROVIDERS: Physician Assistant; Emergency Provider Emergency Medicine Emergency Medical Services; PCP Internal Medicine
DX: E11.65 Type 2 diabetes mellitus with hyperglycemia (principal); R10.13 Epigastric pain; Z79.4 Long term (current) use of insulin; Z79.899 Other long term (current) drug therapy
CPT/HCPCS: 36415; 74177; 80048; 80076; 81001; 82009; 82803; 82947; 83735; 84484; 85025; 93005; 96361; 96374; 96375; 99285; J1170; J2405; Q9967

== ENCOUNTER 2022-06-16 18:24 | Inpatient (IN) | payer OTHER, SELFPAY ==
--- NOTE | ~2022-06-16 | XR_ITS ---
EXAMINATION: XR ABDOMEN KUB CLINICAL INDICATION: Abdominal pain. COMPARISON: CT abdomen/pelvis 05/10/2022. TECHNIQUE: AP view of the abdomen. FINDINGS: Nonobstructive bowel gas pattern. No significant colonic stool burden. No acute osseous abnormalities. Visualized lung bases are clear. No significant soft tissue finding. XR/XR KUB IMPRESSION: Nonobstructive bowel gas pattern.
[2022-06-16 20:00] VITALS: BP 145/104; PULSE 68; RESP 18; TEMP 36.1; O2SAT 99; BMI 26.6
--- NOTE | 2022-06-16 20:00 | ED.GENADULT ---
HPI - General Adult General Chief complaint: General Medical Stated complaint: eka or dehydration Time Seen by Provider: 06/16/22 22:01 Related Data Home Medications Medication Instructions Recorded Confirmed sertraline 25 mg tablet 25 mg PO DAILY 12/28/21 06/17/22 pantoprazole 40 mg tablet,delayed 1 tab PO DAILY 03/15/22 06/17/22 release insulin lispro protamine-lispro 60 unit subcut BID 04/30/22 06/17/22 100 unit/mL (75-25) subcutaneous pen Allergies Allergy/AdvReac Type Severity Reaction Status Date / Time passion fruit [PASSION FRUIT] Allergy Unknown UNK Verified 04/12/22 19:52 [facility] Past Medical History Medical History (Updated 06/17/22 @ 05:44 by Milly Vaughn MD) Cyclical vomiting Diabetes Diabetic gastroparesis Diabetic keto-acidosis Esophageal ulcer Gastroparesis Leukocytosis Noncompliance with medication regimen Persistent hyperactive cannabis intoxication delirium Surgical History No pertinent past surgical history Family History Family History Other No family history of coronary artery disease Social History Social History Household Members: None Housing: Apartment Do you presently have visiting nurse or other home services: No Alcohol intake: never Patient Tobacco Use Status: Never used Tobacco Substance Use Type: Marijuana Advance Directives Date on File: 01/22/21 service: No Current occupational status: employed Physical Exam ED Vital Signs: Vital Signs - 24 hr 06/17/22 03:10 06/17/22 03:42 Temperature 98.4 F Pulse Rate 104 H Respiratory Rate 18 16 Blood Pressure 109/69 Pulse Oximetry 98 Oxygen Delivery Method Room Air BMI result Body Mass Index 26.6 Course Course Course Narrative: -c/o dehydration, vomiting for 24 hrs, diffuse abd pain, has not tried meds for nausea/pain, c/o chills -compliant with meds per pt -known hx of dka - POC glucose 316 at 8:05pm -p anxious, shaking, has nausea bag w/o vomit, diffuse abd pain Medications Administered Generic Name Dose Route Start Last Admin Trade Name Freq PRN Reason Stop Dose Admin Capsaicin 1 appl 06/17/22 05:30 06/17/22 20:33 Capsaicin 0.025% Cream 60 Gm Tube TOPICAL 1 appl TID DESTINY Administration Protocol Enoxaparin Sodium 40 mg 06/17/22 05:30 06/17/22 06:18 Enoxaparin Sodium 40 Mg/0.4 Ml Syringe SUBCUT 40 mg Q24H DESTINY Administration Famotidine 20 mg 06/17/22 12:00 06/17/22 12:50 Famotidine/Pf 20 Mg/2 Ml Vial IVPUSH 20 mg DAILY DESTINY Administration Lactated Ringer's 1,000 mls @ 100 mls/hr 06/17/22 12:00 06/17/22 23:07 Lr IVCONT Not Given .Q10H DESTINY Insulin Human Lispro 0.1 - 10 unit 06/17/22 07:30 06/17/22 22:44 Insulin Lispro 100 Unit/Ml 3 Ml Vial SUBCUT 06/18/22 05:30 6 unit [facility] Administration Protocol Ondansetron HCl 4 mg 06/17/22 05:30 06/17/22 17:10 Ondansetron Hcl 4 Mg/2 Ml Vial IVPUSH 4 mg Q6H PRN Administration Nausea and Vomiting Sodium Chloride 3 ml 06/17/22 08:00 06/17/22 20:29 0.9 % Sodium Chloride Flush 3 Ml Syringe IVFLUSH 3 ml [facility] Administration Discontinued Medications Generic Name Dose Route Start Last Admin Trade Name Roger PRN Reason Stop Dose Admin Sodium Chloride 1,000 mls @ 999 mls/hr 06/16/22 22:08 06/17/22 16:04 Ns IV 06/16/22 23:08 Infused .Q1H1M ONE Infusion Sodium Chloride 1,000 mls @ 999 mls/hr 06/17/22 02:45 06/17/22 02:42 Ns IV 06/17/22 03:45 Not Given .Q1H1M DESTINY Sodium Chloride 1,000 mls @ 999 mls/hr 06/17/22 02:39 06/17/22 07:12 Ns IV 06/17/22 03:39 Infused .Q1H1M ONE Infusion Insulin Glargine 20 unit 06/17/22 05:26 06/17/22 06:18 Insulin Glargine,Hum.Rec.Anlog 100 Unit/Ml 10 Ml Vial SUBCUT 06/17/22 05:27 20 unit ONCE ONE Administration Insulin Human Regular 10 unit 06/16/22 22:08 06/16/22 22:46 Insulin Regular, Human 100 Unit/Ml 3 Ml Vial IVPUSH 06/16/22 22:09 10 unit ONCE ONE Administration Insulin Human Regular 5 unit 06/17/22 05:26 06/17/22 06:20 Insulin Regular, Human 100 Unit/Ml 3 Ml Vial IVPUSH 06/17/22 05:27 5 unit ONCE ONE Administration Morphine Sulfate 1 mg 06/16/22 22:08 06/16/22 22:46 Morphine Sulfate 2 Mg/Ml Cartridge IVPUSH 06/16/22 22:09 1 mg ONCE ONE Administration Protocol Morphine Sulfate 1 mg 06/17/22 03:35 06/17/22 03:42 Morphine Sulfate 2 Mg/Ml Cartridge IVPUSH 06/17/22 03:36 1 mg ONCE ONE Administration Protocol Ondansetron HCl 4 mg 06/16/22 22:08 06/16/22 22:46 Ondansetron Hcl 4 Mg/2 Ml Vial IVPUSH 06/16/22 22:09 4 mg ONCE ONE Administration Ondansetron HCl 4 mg 06/17/22 02:34 06/17/22 02:43 Ondansetron Hcl 4 Mg/2 Ml Vial IVPUSH 06/17/22 02:35 Not Given ONCE ONE Ondansetron HCl 4 mg 06/17/22 02:39 06/17/22 02:43 Ondansetron Hcl 4 Mg/2 Ml Vial IVPUSH 06/17/22 02:40 4 mg ONCE ONE Administration Ondansetron HCl 4 mg 06/17/22 03:35 06/17/22 03:43 Ondansetron Hcl 4 Mg/2 Ml Vial IVPUSH 06/17/22 03:36 4 mg ONCE ONE Administration Pantoprazole Sodium 40 mg 06/17/22 05:28 06/17/22 06:18 Pantoprazole Sodium 40 Mg/10 Ml Vial IVPUSH 06/17/22 05:29 40 mg ONCE ONE Administration Medical Decision Making Lab Data Result diagrams: 06/17/22 06:10 06/17/22 06:10 Labs: Lab Results 06/16/22 06/16/22 06/16/22 Range/Units 20:04 20:25 20:25 WBC 12.1 H (4.8-10.8) X10*3/uL RBC 5.64 (4.60-5.80) X10*6/uL Hgb 16.0 (14.0-18.0) g/dl Hct 48.5 (42.0-52.0) % MCV 86.0 (80.0-98.0) fL MCH 28.4 (27.0-33.0) pg MCHC 33.0 (31.0-36.0) g/dl RDW 12.7 (11.0-16.0) % Plt Count 298 (160-400) X10*3/uL MPV 10.1 (9.4-12.4) fL Immature Gran % (Auto) 0.2 (0.0-0.4) % Neut % (Auto) 83.6 H (45-73) % Lymph % (Auto) 10.6 L (20-40) % [place] % (Auto) 5.2 (2-11) % Eos % (Auto) 0.2 (0-4) % Baso % (Auto) 0.2 (0-2) % Lymph # (Auto) 1.3 (1.2-4.9) X10*3/uL [place] # (Auto) 0.6 (0.1-1.2) X10*3/uL Eos # (Auto) 0.0 (0.0-0.4) X10*3/uL Baso # (Auto) 0.0 (0.0-0.2) X10*3/uL Abs Immat Gran (auto) 0.03 (0.00-0.03) X10*3/uL Absolute Neuts (auto) 10.1 H (2.0-8.3) x10*3/uL Absolute Nucleated RBC 0.000 (0.0-0.012) X10*3/uL Nucleated RBC % (auto) 0.0 (0.0-0.2) /100WBC VBG pH (7.32-7.43) VBG pCO2 mmHg VBG pO2 mmHg VBG HCO3 (22-26) mmol/L VBG O2 Saturation % VBG Base Excess mmol/L Sodium 135 (135-145) mmol/L Potassium 5.2 H D (3.3-5.1) mmol/L Chloride 97 (96-108) mmol/L Carbon Dioxide 22 (22-29) mmol/L Anion Gap 21 H (12-20) BUN 17 H D (9-16) mg/dL Creatinine 1.26 (0.5-1.4) mg/dL Estim Creat Clear Calc 80.1 Estimated GFR > 60 POC Glucose 316 H (60-115) mg/dL Random Glucose 327 H D (60-115) mg/dL Lactic Acid (0.5-2.0) mmol/L Calcium 10.7 H D (8.4-10.2) mg/dL Total Bilirubin 0.7 (0.0-1.0) mg/dL Direct Bilirubin 0.2 (0.0-0.5) mg/dL AST 21 D (5-37) U/L ALT 25 (0-40) U/L Alkaline Phosphatase 76 D (39-117) U/L Total Protein 8.1 H D (6.5-8.0) g/dL Albumin 4.9 D (3.5-5.0) g/dL Lipase 22 (8-78) U/L Urine Color Urine Appearance Urine pH (5.0-9.0) Ur Specific [place] (1.005-1.025) Urine Protein (Neg-Trace) mg/dL Urine Glucose (UA) (Negative) mg/dL Urine Ketones (Negative) mg/dL Urine Blood (Negative) Urine Nitrite (Negative) Ur Leukocyte Esterase (Negative) Urine RBC (0-2) /HPF Urine WBC (0-5) /HPF Ur Squamous Epith Cells (0-2) /HPF Urine Bacteria (None Seen) Hyaline Casts (0-2) /LPF Urine Opiates Screen (Not Detect) Urine Fentanyl Screen (Not Detect) Ur Barbiturates Screen (Not Detect) Ur Phencyclidine Scrn (Not Detect) Ur Amphetamines Screen (Not Detect) U Benzodiazepines Scrn (Not Detect) Urine Cocaine Screen (Not Detect) U Marijuana (THC) Screen (Not Detect) Acetone, Qual Negative (Negative) COVID-19 (EARLINE) (Negative) COVID-19 Clin Com 06/16/22 06/16/22 06/16/22 Range/Units 20:25 20:25 20:27 WBC (4.8-10.8) X10*3/uL RBC (4.60-5.80) X10*6/uL Hgb (14.0-18.0) g/dl Hct (42.0-52.0) % MCV (80.0-98.0) fL MCH (27.0-33.0) pg MCHC (31.0-36.0) g/dl RDW (11.0-16.0) % Plt Count (160-400) X10*3/uL MPV (9.4-12.4) fL Immature Gran % (Auto) (0.0-0.4) % Neut % (Auto) (45-73) % Lymph % (Auto) (20-40) % [place] % (Auto) (2-11) % Eos % (Auto) (0-4) % Baso % (Auto) (0-2) % Lymph # (Auto) (1.2-4.9) X10*3/uL [place] # (Auto) (0.1-1.2) X10*3/uL Eos # (Auto) (0.0-0.4) X10*3/uL Baso # (Auto) (0.0-0.2) X10*3/uL Abs Immat Gran (auto) (0.00-0.03) X10*3/uL Absolute Neuts (auto) (2.0-8.3) x10*3/uL Absolute Nucleated RBC (0.0-0.012) X10*3/uL Nucleated RBC % (auto) (0.0-0.2) /100WBC VBG pH 7.32 (7.32-7.43) VBG pCO2 40 mmHg VBG pO2 40 mmHg VBG HCO3 21 L (22-26) mmol/L VBG O2 Saturation 56.0 % VBG Base Excess -4.5 mmol/L Sodium (135-145) mmol/L Potassium (3.3-5.1) mmol/L Chloride (96-108) mmol/L Carbon Dioxide (22-29) mmol/L Anion Gap (12-20) BUN (9-16) mg/dL Creatinine (0.5-1.4) mg/dL Estim Creat Clear Calc Estimated GFR POC Glucose (60-115) mg/dL Random Glucose (60-115) mg/dL Lactic Acid 1.4 (0.5-2.0) mmol/L Calcium (8.4-10.2) mg/dL Total Bilirubin (0.0-1.0) mg/dL Direct Bilirubin (0.0-0.5) mg/dL AST (5-37) U/L ALT (0-40) U/L Alkaline Phosphatase (39-117) U/L Total Protein (6.5-8.0) g/dL Albumin (3.5-5.0) g/dL Lipase (8-78) U/L Urine Color Urine Appearance Urine pH (5.0-9.0) Ur Specific [place] (1.005-1.025) Urine Protein (Neg-Trace) mg/dL Urine Glucose (UA) (Negative) mg/dL Urine Ketones (Negative) mg/dL Urine Blood (Negative) Urine Nitrite (Negative) Ur Leukocyte Esterase (Negative) Urine RBC (0-2) /HPF Urine WBC (0-5) /HPF Ur Squamous Epith Cells (0-2) /HPF Urine Bacteria (None Seen) Hyaline Casts (0-2) /LPF Urine Opiates Screen (Not Detect) Urine Fentanyl Screen (Not Detect) Ur Barbiturates Screen (Not Detect) Ur Phencyclidine Scrn (Not Detect) Ur Amphetamines Screen (Not Detect) U Benzodiazepines Scrn (Not Detect) Urine Cocaine Screen (Not Detect) U Marijuana (THC) Screen (Not Detect) Acetone, Qual (Negative) COVID-19 (EARLINE) Negative (Negative) COVID-19 Clin Com See Note 06/16/22 06/16/22 06/16/22 Range/Units 22:04 23:41 23:44 WBC (4.8-10.8) X10*3/uL RBC (4.60-5.80) X10*6/uL Hgb (14.0-18.0) g/dl Hct (42.0-52.0) % MCV (80.0-98.0) fL MCH (27.0-33.0) pg MCHC (31.0-36.0) g/dl RDW (11.0-16.0) % Plt Count (160-400) X10*3/uL MPV (9.4-12.4) fL Immature Gran % (Auto) (0.0-0.4) % Neut % (Auto) (45-73) % Lymph % (Auto) (20-40) % [place] % (Auto) (2-11) % Eos % (Auto) (0-4) % Baso % (Auto) (0-2) % Lymph # (Auto) (1.2-4.9) X10*3/uL [place] # (Auto) (0.1-1.2) X10*3/uL Eos # (Auto) (0.0-0.4) X10*3/uL Baso # (Auto) (0.0-0.2) X10*3/uL Abs Immat Gran (auto) (0.00-0.03) X10*3/uL Absolute Neuts (auto) (2.0-8.3) x10*3/uL Absolute Nucleated RBC (0.0-0.012) X10*3/uL Nucleated RBC % (auto) (0.0-0.2) /100WBC VBG pH (7.32-7.43) VBG pCO2 mmHg VBG pO2 mmHg VBG HCO3 (22-26) mmol/L VBG O2 Saturation % VBG Base Excess mmol/L Sodium (135-145) mmol/L Potassium (3.3-5.1) mmol/L Chloride (96-108) mmol/L Carbon Dioxide (22-29) mmol/L Anion Gap (12-20) BUN (9-16) mg/dL Creatinine (0.5-1.4) mg/dL Estim Creat Clear Calc Estimated GFR POC Glucose 304 H 233 H (60-115) mg/dL Random Glucose (60-115) mg/dL Lactic Acid (0.5-2.0) mmol/L Calcium (8.4-10.2) mg/dL Total Bilirubin (0.0-1.0) mg/dL Direct Bilirubin (0.0-0.5) mg/dL AST (5-37) U/L ALT (0-40) U/L Alkaline Phosphatase (39-117) U/L Total Protein (6.5-8.0) g/dL Albumin (3.5-5.0) g/dL Lipase (8-78) U/L Urine Color Yellow Urine Appearance Clear Urine pH 5.5 (5.0-9.0) Ur Specific [place] >= 1.030 H (1.005-1.025) Urine Protein 30 (1+) H (Neg-Trace) mg/dL Urine Glucose (UA) >=1000 H (Negative) mg/dL Urine Ketones 40 (Negative) mg/dL Urine Blood Negative (Negative) Urine Nitrite Negative (Negative) Ur Leukocyte Esterase Negative (Negative) Urine RBC 0-2 (0-2) /HPF Urine WBC 0-5 (0-5) /HPF Ur Squamous Epith Cells 0-2 (0-2) /HPF Urine Bacteria None Seen (None Seen) Hyaline Casts 0-2 (0-2) /LPF Urine Opiates Screen (Not Detect) Urine Fentanyl Screen (Not Detect) Ur Barbiturates Screen (Not Detect) Ur Phencyclidine Scrn (Not Detect) Ur Amphetamines Screen (Not Detect) U Benzodiazepines Scrn (Not Detect) Urine Cocaine Screen (Not Detect) U Marijuana (THC) Screen (Not Detect) Acetone, Qual (Negative) COVID-19 (EARLINE) (Negative) COVID-19 Clin Com 06/16/22 06/17/22 Range/Units 23:44 00:22 WBC (4.8-10.8) X10*3/uL RBC (4.60-5.80) X10*6/uL Hgb (14.0-18.0) g/dl Hct (42.0-52.0) % MCV (80.0-98.0) fL MCH (27.0-33.0) pg MCHC (31.0-36.0) g/dl RDW (11.0-16.0) % Plt Count (160-400) X10*3/uL MPV (9.4-12.4) fL Immature Gran % (Auto) (0.0-0.4) % Neut % (Auto) (45-73) % Lymph % (Auto) (20-40) % [place] % (Auto) (2-11) % Eos % (Auto) (0-4) % Baso % (Auto) (0-2) % Lymph # (Auto) (1.2-4.9) X10*3/uL [place] # (Auto) (0.1-1.2) X10*3/uL Eos # (Auto) (0.0-0.4) X10*3/uL Baso # (Auto) (0.0-0.2) X10*3/uL Abs Immat Gran (auto) (0.00-0.03) X10*3/uL Absolute Neuts (auto) (2.0-8.3) x10*3/uL Absolute Nucleated RBC (0.0-0.012) X10*3/uL Nucleated RBC % (auto) (0.0-0.2) /100WBC VBG pH (7.32-7.43) VBG pCO2 mmHg VBG pO2 mmHg VBG HCO3 (22-26) mmol/L VBG O2 Saturation % VBG Base Excess mmol/L Sodium 138 (135-145) mmol/L Potassium 4.3 (3.3-5.1) mmol/L Chloride 101 (96-108) mmol/L Carbon Dioxide 23 (22-29) mmol/L Anion Gap 18 (12-20) BUN 17 H (9-16) mg/dL Creatinine 1.05 (0.5-1.4) mg/dL Estim Creat Clear Calc 96.2 Estimated GFR > 60 POC Glucose (60-115) mg/dL Random Glucose 244 H (60-115) mg/dL Lactic Acid (0.5-2.0) mmol/L Calcium 10.0 D (8.4-10.2) mg/dL Total Bilirubin (0.0-1.0) mg/dL Direct Bilirubin (0.0-0.5) mg/dL AST (5-37) U/L ALT (0-40) U/L Alkaline Phosphatase (39-117) U/L Total Protein (6.5-8.0) g/dL Albumin (3.5-5.0) g/dL Lipase (8-78) U/L Urine Color Urine Appearance Urine pH (5.0-9.0) Ur Specific [place] (1.005-1.025) Urine Protein (Neg-Trace) mg/dL Urine Glucose (UA) (Negative) mg/dL Urine Ketones (Negative) mg/dL Urine Blood (Negative) Urine Nitrite (Negative) Ur Leukocyte Esterase (Negative) Urine RBC (0-2) /HPF Urine WBC (0-5) /HPF Ur Squamous Epith Cells (0-2) /HPF Urine Bacteria (None Seen) Hyaline Casts (0-2) /LPF Urine Opiates Screen Not Detected (Not Detect) Urine Fentanyl Screen Not Detected (Not Detect) Ur Barbiturates Screen Not Detected (Not Detect) Ur Phencyclidine Scrn Not Detected (Not Detect) Ur Amphetamines Screen Not Detected (Not Detect) U Benzodiazepines Scrn Not Detected (Not Detect) Urine Cocaine Screen Not Detected (Not Detect) U Marijuana (THC) Screen POSITIVE H (Not Detect) Acetone, Qual (Negative) COVID-19 (EARLINE) (Negative) COVID-19 Clin Com Discharge Plan Discharge Clinical Impression: Diabetic gastroparesis, Dehydration Patient Disposition: Admitted As Inpatient Interventions: Admission Worksheet (ED) Last Done: 06/17/22 16:01 Discharge Date/Time: 06/17/22 16:00
--- NOTE | 2022-06-16 20:01 | ECG_ITS ---
Test Reason : DIZZINESS Blood Pressure : / mmHG Vent. Rate : 072 BPM Atrial Rate : 072 BPM P-R Int : 144 ms QRS Dur : 072 ms QT Int : 372 ms P-R-T Axes : 057 066 043 degrees QTc Int : 407 ms Sinus rhythm with marked sinus arrhythmia Early repolarization Otherwise normal ECG When compared with ECG of 10-MAY-2022 23:57, ST elevation now present in Inferior leads Nonspecific T wave abnormality, improved in Inferior leads Nonspecific T wave abnormality no longer evident in Anterolateral leads Referred By: Lizzette Cuevas Electronically Signed By:BIN OQUENDO MD
[2022-06-16 20:28] LABS: MANUAL DIFF FLAG NO
[2022-06-16 20:30] LABS: Basophils Percent Auto 0.2 % (0-2); Eosinophils Percent Auto 0.2 % (0-4); Hematocrit 48.5 % (42.0-52.0); Imm Gran Abs Auto 0.03 X10*3/uL (0.00-0.03); Imm Gran Pct Auto 0.2 % (0.0-0.4); Lymphocytes Absolute Auto 1.3 X10*3/uL (1.2-4.9); Lymphocytes Percent Auto 10.6 % (20-40); Mean Corpuscular Hemoglobin 28.4 pg (27.0-33.0); Mean Platelet Volume 10.1 fL (9.4-12.4); Monocytes Absolute Auto 0.6 X10*3/uL (0.1-1.2); Monocytes Percent Auto 5.2 % (2-11); Neutrophils Absolute Auto 10.1 x10*3/uL (2.0-8.3); Neutrophils Percent Auto 83.6 % (45-73); Platelet Count 298 X10*3/uL (160-400); Red Blood Count 5.64 X10*6/uL (4.60-5.80); Red Cell Distribution Width 12.7 % (11.0-16.0); White Blood Count 12.1 X10*3/uL (4.8-10.8)
[2022-06-16 20:33] LABS: VBG Base Excess -4.5 mmol/L; VBG HCO3 21 mmol/L (22-26); VBG pCO2 40 mmHg; VBG pH 7.32 (7.32-7.43); VBG pO2 40 mmHg
[2022-06-16 20:36] LABS: Venous Blood Gas Refer to POC result
[2022-06-16 20:43] LABS: COVID-19 Test Negative (Negative)
[2022-06-16 20:50] LABS: Lactic Acid 1.4 mmol/L (0.5-2.0)
[2022-06-16 21:00] LABS: Alanine Aminotransferase 25 U/L (0-40); Albumin Level 4.9 g/dL (3.5-5.0); Alkaline Phosphatase 76 U/L (39-117); Anion Gap 21 (12-20); Aspartate Amino Transferase 21 U/L (5-37); Bilirubin Direct 0.2 mg/dL (0.0-0.5); Bilirubin Total 0.7 mg/dL (0.0-1.0); Blood Urea Nitrogen 17 mg/dL (9-16); Calcium 10.7 mg/dL (8.4-10.2); Carbon Dioxide 22 mmol/L (22-29); Chloride 97 mmol/L (96-108); Creatinine Clr Calc Pharmacy 80.1; Estimated Glomerular Filt Rate > 60; Glucose Random 327 mg/dL (60-115); Lipase 22 U/L (8-78); Potassium 5.2 mmol/L (3.3-5.1); Sodium 135 mmol/L (135-145); Total Protein 8.1 g/dL (6.5-8.0)
[2022-06-16 21:38] LABS: Acetone, serum QL Negative (Negative)
[2022-06-16 22:08] LABS: Glucose, Whole Blood 304 mg/dL (60-115)
--- NOTE | 2022-06-16 22:23 | ED_ITS ---
HPI - General Adult General Chief complaint: General Medical Stated complaint: eka or dehydration Time Seen by Provider: 06/16/22 22:01 Source: patient Mode of arrival: ambulatory Limitations: no limitations History of Present Illness HPI narrative: 26-year-old male with past medical history of insulin-dependent diabetes, diabetic gastroparesis, recurrent DKA presented to the ED for evaluation of nausea and vomiting. Patient been having 2 days history of nausea and vomiting with abdominal cramps which is similar to his previous presentation to the ED likely related to diabetic gastroparesis patient claimed that he is compliant with his medication and taking insulin as instructed, no coughing, no UTI symptoms, no fever, no chills. Related Data Home Medications Medication Instructions Recorded Confirmed sertraline 25 mg tablet 25 mg PO DAILY 12/28/21 04/30/22 insulin lispro 100 unit/mL See Rx Instructions .Route .COMPLEX 03/15/22 04/30/22 subcutaneous solution pantoprazole 40 mg tablet,delayed 1 tab PO DAILY 03/15/22 04/30/22 release insulin lispro protamine-lispro 50 unit subcut DAILY 04/30/22 04/30/22 100 unit/mL (75-25) subcutaneous pen insulin lispro protamine-lispro 60 unit subcut DAILY@1800 04/30/22 04/30/22 100 unit/mL (75-25) subcutaneous pen Previous Rx's Medication Instructions Recorded prochlorperazine maleate 10 mg 10 mg PO Q6H PRN nausea and 04/13/22 tablet (Compazine) vomiting #30 tabs Allergies Allergy/AdvReac Type Severity Reaction Status Date / Time passion fruit [PASSION FRUIT] Allergy Unknown UNK Verified 04/12/22 19:52 Review of Systems Review of Systems: All other systems are reviewed and are negative Constitutional: Reports as per HPI and Reports no additional constitutional complaints Eyes: Reports as per HPI and Reports no additional eye complaints Reports system reviewed and no additional complaints, except as documented Cardiovascular: Reports as per HPI and Reports no additional cardiovascular comp laints Respiratory: Reports as per HPI and Reports no additional respiratory complaints Gastrointestinal: Reports as per HPI and Reports no additional gastrointestinal complaints Genitourinary: Reports no additional female genitourinary complaints Musculoskeletal: Reports no additional musculoskeletal complaints Skin/Breast: Reports system reviewed and no additional complaints, except as docu Psychiatric: Reports no additional psychiatric complaints Endocrine: Reports no additional endocrine complaints Hematologic/Lymphatic: Reports no additional hematologic/lymphatic complaints Allergic/Immunologic: Reports no additional allergic/immunologic complaints Reports system reviewed and no additional complaints, except as documented and Reports Abnormal speech present [facility] Past Medical History Medical History Cyclical vomiting Diabetes Diabetic gastroparesis Diabetic keto-acidosis Esophageal ulcer Gastroparesis Leukocytosis Noncompliance with medication regimen Persistent hyperactive cannabis intoxication delirium Surgical History No pertinent past surgical history Family History Family History Other No family history of coronary artery disease Social History Social History Household Members: None Housing: Apartment Do you presently have visiting nurse or other home services: No Alcohol intake: never Patient Tobacco Use Status: Never used Tobacco Substance Use Type: Marijuana Advance Directives: Yes Advance Directives on File: Yes Advance Directives Date on File: 01/22/21 service: No Current occupational status: employed Physical Exam ED Vital Signs: Vital Signs - 24 hr 06/16/22 20:00 06/16/22 23:47 06/17/22 03:10 Temperature 97.0 F 97.7 F 98.4 F Pulse Rate 68 82 104 H Respiratory Rate 18 18 18 Blood Pressure 145/104 H 141/85 H 109/69 Pulse Oximetry 99 99 98 Oxygen Delivery Method Room Air Room Air 06/17/22 03:42 Temperature Pulse Rate Respiratory Rate 16 Blood Pressure Pulse Oximetry Oxygen Delivery Method BMI result Body Mass Index 26.6 Appearance: Alert. Oriented X3. No acute distress. Head: Normal external exam. Normocephalic. Atraumatic. No [place] signs noted. No raccoon eyes noted Eyes: PERRLA. EOMI. Conjunctiva and sclera normal. Eyelids normal. ENT: TM's Normal. Pharynx normal. Uvula midline. Moist mucous membranes. No trismus noted. No drooling noted. No muffled voice noted. Neck: Normal inspection. Neck supple. FROM. No adenopathy. Thyroid Normal. No meningeal signs. No neck mass noted. CVS: Normal heart rate and rhythm. Heart sound normal. No murmurs noted. Pulses normal throughout. Respiratory: No respiratory distress. Painless inspiration. Breath sounds normal. No wheezes/rales/rhonchi noted. Chest nontender. No accessory muscle usage noted or decreased air movement noted. Abdomen: Soft and nontender. Bowel sounds normal in all 4 quadrants. No distention noted. No organomegaly noted. No visible injury noted. Back: No CVA tenderness. Full range of motion noted. Skin: Skin warm and dry. Normal skin color. Normal skin turgor. No rashes/lesions/lacerations noted. Extremities: No lower extremity edema. Extremities exhibit normal range of motion. Extremities nontender. Neuro: Oriented X 3. Cranial nerve exam: II-XII are grossly intact No motor deficit. No sensory deficit. Reflexes normal. Course Course Course Narrative: 27-year-old male history of type 1 diabetes on insulin presented with dehydration due to diabetic gastroparesis, in no indication for DKA, electrolytes and BS stable after a L of fluids and IV insulin. Patient feels better able to tolerate p.o. intake. Will discharge to follow-up with PCP. Reevaluation(s) Reevaluation #1: Patient still with persistent vomiting despite multiple doses of antiemetic medication and IV hydration, patient is not in DKA. Will change the plan will admit the patient. Time: 03:52 Medications Administered Discontinued Medications Generic Name Dose Route Start Last Admin Trade Name Freq PRN Reason Stop Dose Admin Sodium Chloride 1,000 mls @ 999 mls/hr 06/16/22 22:08 06/16/22 22:43 Ns IV 06/16/22 23:08 999 mls/hr .Q1H1M ONE Administration Sodium Chloride 1,000 mls @ 999 mls/hr 06/17/22 02:45 06/17/22 02:42 Ns IV 06/17/22 03:45 Not Given .Q1H1M DESTINY Sodium Chloride 1,000 mls @ 999 mls/hr 06/17/22 02:39 06/17/22 02:45 Ns IV 06/17/22 03:39 999 mls/hr .Q1H1M ONE Administration Insulin Human Regular 10 unit 06/16/22 22:08 06/16/22 22:46 Insulin Regular, Human 100 Unit/Ml 3 Ml Vial IVPUSH 06/16/22 22:09 10 unit ONCE ONE Administration Morphine Sulfate 1 mg 06/16/22 22:08 06/16/22 22:46 Morphine Sulfate 2 Mg/Ml Cartridge IVPUSH 06/16/22 22:09 1 mg ONCE ONE Administration Protocol Morphine Sulfate 1 mg 06/17/22 03:35 06/17/22 03:42 Morphine Sulfate 2 Mg/Ml Cartridge IVPUSH 06/17/22 03:36 1 mg ONCE ONE Administration Protocol Ondansetron HCl 4 mg 06/16/22 22:08 06/16/22 22:46 Ondansetron Hcl 4 Mg/2 Ml Vial IVPUSH 06/16/22 22:09 4 mg ONCE ONE Administration Ondansetron HCl 4 mg 06/17/22 02:34 06/17/22 02:43 Ondansetron Hcl 4 Mg/2 Ml Vial IVPUSH 06/17/22 02:35 Not Given ONCE ONE Ondansetron HCl 4 mg 06/17/22 02:39 06/17/22 02:43 Ondansetron Hcl 4 Mg/2 Ml Vial IVPUSH 06/17/22 02:40 4 mg ONCE ONE Administration Ondansetron HCl 4 mg 06/17/22 03:35 06/17/22 03:43 Ondansetron Hcl 4 Mg/2 Ml Vial IVPUSH 06/17/22 03:36 4 mg ONCE ONE Administration Medical Decision Making Lab Data Lab results reviewed: Yes I reviewed the patient's lab results. Result diagrams: 06/16/22 20:25 06/17/22 00:22 Labs: Lab Results 06/16/22 06/16/22 06/16/22 Range/Units 20:04 20:25 20:25 WBC 12.1 H (4.8-10.8) X10*3/uL RBC 5.64 (4.60-5.80) X10*6/uL Hgb 16.0 (14.0-18.0) g/dl Hct 48.5 (42.0-52.0) % MCV 86.0 (80.0-98.0) fL MCH 28.4 (27.0-33.0) pg MCHC 33.0 (31.0-36.0) g/dl RDW 12.7 (11.0-16.0) % Plt Count 298 (160-400) X10*3/uL MPV 10.1 (9.4-12.4) fL Immature Gran % (Auto) 0.2 (0.0-0.4) % Neut % (Auto) 83.6 H (45-73) % Lymph % (Auto) 10.6 L (20-40) % [place] % (Auto) 5.2 (2-11) % Eos % (Auto) 0.2 (0-4) % Baso % (Auto) 0.2 (0-2) % Lymph # (Auto) 1.3 (1.2-4.9) X10*3/uL [place] # (Auto) 0.6 (0.1-1.2) X10*3/uL Eos # (Auto) 0.0 (0.0-0.4) X10*3/uL Baso # (Auto) 0.0 (0.0-0.2) X10*3/uL Abs Immat Gran (auto) 0.03 (0.00-0.03) X10*3/uL Absolute Neuts (auto) 10.1 H (2.0-8.3) x10*3/uL Absolute Nucleated RBC 0.000 (0.0-0.012) X10*3/uL Nucleated RBC % (auto) 0.0 (0.0-0.2) /100WBC VBG pH (7.32-7.43) VBG pCO2 mmHg VBG pO2 mmHg VBG HCO3 (22-26) mmol/L VBG O2 Saturation % VBG Base Excess mmol/L Sodium 135 (135-145) mmol/L Potassium 5.2 H D (3.3-5.1) mmol/L Chloride 97 (96-108) mmol/L Carbon Dioxide 22 (22-29) mmol/L Anion Gap 21 H (12-20) BUN 17 H D (9-16) mg/dL Creatinine 1.26 (0.5-1.4) mg/dL Estim Creat Clear Calc 80.1 Estimated GFR > 60 POC Glucose 316 H (60-115) mg/dL Random Glucose 327 H D (60-115) mg/dL Lactic Acid (0.5-2.0) mmol/L Calcium 10.7 H D (8.4-10.2) mg/dL Total Bilirubin 0.7 (0.0-1.0) mg/dL Direct Bilirubin 0.2 (0.0-0.5) mg/dL AST 21 D (5-37) U/L ALT 25 (0-40) U/L Alkaline Phosphatase 76 D (39-117) U/L Total Protein 8.1 H D (6.5-8.0) g/dL Albumin 4.9 D (3.5-5.0) g/dL Lipase 22 (8-78) U/L Urine Color Urine Appearance Urine pH (5.0-9.0) Ur Specific [place] (1.005-1.025) Urine Protein (Neg-Trace) mg/dL Urine Glucose (UA) (Negative) mg/dL Urine Ketones (Negative) mg/dL Urine Blood (Negative) Urine Nitrite (Negative) Ur Leukocyte Esterase (Negative) Urine RBC (0-2) /HPF Urine WBC (0-5) /HPF Ur Squamous Epith Cells (0-2) /HPF Urine Bacteria (None Seen) Hyaline Casts (0-2) /LPF Urine Opiates Screen (Not Detect) Urine Fentanyl Screen (Not Detect) Ur Barbiturates Screen (Not Detect) Ur Phencyclidine Scrn (Not Detect) Ur Amphetamines Screen (Not Detect) U Benzodiazepines Scrn (Not Detect) Urine Cocaine Screen (Not Detect) U Marijuana (THC) Screen (Not Detect) Acetone, Qual Negative (Negative) COVID-19 (EARLINE) (Negative) COVID-19 Clin Com 06/16/22 06/16/22 06/16/22 Range/Units 20:25 20:25 20:27 WBC (4.8-10.8) X10*3/uL RBC (4.60-5.80) X10*6/uL Hgb (14.0-18.0) g/dl Hct (42.0-52.0) % MCV (80.0-98.0) fL MCH (27.0-33.0) pg MCHC (31.0-36.0) g/dl RDW (11.0-16.0) % Plt Count (160-400) X10*3/uL MPV (9.4-12.4) fL Immature Gran % (Auto) (0.0-0.4) % Neut % (Auto) (45-73) % Lymph % (Auto) (20-40) % [place] % (Auto) (2-11) % Eos % (Auto) (0-4) % Baso % (Auto) (0-2) % Lymph # (Auto) (1.2-4.9) X10*3/uL [place] # (Auto) (0.1-1.2) X10*3/uL Eos # (Auto) (0.0-0.4) X10*3/uL Baso # (Auto) (0.0-0.2) X10*3/uL Abs Immat Gran (auto) (0.00-0.03) X10*3/uL Absolute Neuts (auto) (2.0-8.3) x10*3/uL Absolute Nucleated RBC (0.0-0.012) X10*3/uL Nucleated RBC % (auto) (0.0-0.2) /100WBC VBG pH 7.32 (7.32-7.43) VBG pCO2 40 mmHg VBG pO2 40 mmHg VBG HCO3 21 L (22-26) mmol/L VBG O2 Saturation 56.0 % VBG Base Excess -4.5 mmol/L Sodium (135-145) mmol/L Potassium (3.3-5.1) mmol/L Chloride (96-108) mmol/L Carbon Dioxide (22-29) mmol/L Anion Gap (12-20) BUN (9-16) mg/dL Creatinine (0.5-1.4) mg/dL Estim Creat Clear Calc Estimated GFR POC Glucose (60-115) mg/dL Random Glucose (60-115) mg/dL Lactic Acid 1.4 (0.5-2.0) mmol/L Calcium (8.4-10.2) mg/dL Total Bilirubin (0.0-1.0) mg/dL Direct Bilirubin (0.0-0.5) mg/dL AST (5-37) U/L ALT (0-40) U/L Alkaline Phosphatase (39-117) U/L Total Protein (6.5-8.0) g/dL Albumin (3.5-5.0) g/dL Lipase (8-78) U/L Urine Color Urine Appearance Urine pH (5.0-9.0) Ur Specific [place] (1.005-1.025) Urine Protein (Neg-Trace) mg/dL Urine Glucose (UA) (Negative) mg/dL Urine Ketones (Negative) mg/dL Urine Blood (Negative) Urine Nitrite (Negative) Ur Leukocyte Esterase (Negative) Urine RBC (0-2) /HPF Urine WBC (0-5) /HPF Ur Squamous Epith Cells (0-2) /HPF Urine Bacteria (None Seen) Hyaline Casts (0-2) /LPF Urine Opiates Screen (Not Detect) Urine Fentanyl Screen (Not Detect) Ur Barbiturates Screen (Not Detect) Ur Phencyclidine Scrn (Not Detect) Ur Amphetamines Screen (Not Detect) U Benzodiazepines Scrn (Not Detect) Urine Cocaine Screen (Not Detect) U Marijuana (THC) Screen (Not Detect) Acetone, Qual (Negative) COVID-19 (EARLINE) Negative (Negative) COVID-19 Clin Com See Note 06/16/22 06/16/22 06/16/22 Range/Units 22:04 23:41 23:44 WBC (4.8-10.8) X10*3/uL RBC (4.60-5.80) X10*6/uL Hgb (14.0-18.0) g/dl Hct (42.0-52.0) % MCV (80.0-98.0) fL MCH (27.0-33.0) pg MCHC (31.0-36.0) g/dl RDW (11.0-16.0) % Plt Count (160-400) X10*3/uL MPV (9.4-12.4) fL Immature Gran % (Auto) (0.0-0.4) % Neut % (Auto) (45-73) % Lymph % (Auto) (20-40) % [place] % (Auto) (2-11) % Eos % (Auto) (0-4) % Baso % (Auto) (0-2) % Lymph # (Auto) (1.2-4.9) X10*3/uL [place] # (Auto) (0.1-1.2) X10*3/uL Eos # (Auto) (0.0-0.4) X10*3/uL Baso # (Auto) (0.0-0.2) X10*3/uL Abs Immat Gran (auto) (0.00-0.03) X10*3/uL Absolute Neuts (auto) (2.0-8.3) x10*3/uL Absolute Nucleated RBC (0.0-0.012) X10*3/uL Nucleated RBC % (auto) (0.0-0.2) /100WBC VBG pH (7.32-7.43) VBG pCO2 mmHg VBG pO2 mmHg VBG HCO3 (22-26) mmol/L VBG O2 Saturation % VBG Base Excess mmol/L Sodium (135-145) mmol/L Potassium (3.3-5.1) mmol/L Chloride (96-108) mmol/L Carbon Dioxide (22-29) mmol/L Anion Gap (12-20) BUN (9-16) mg/dL Creatinine (0.5-1.4) mg/dL Estim Creat Clear Calc Estimated GFR POC Glucose 304 H 233 H (60-115) mg/dL Random Glucose (60-115) mg/dL Lactic Acid (0.5-2.0) mmol/L Calcium (8.4-10.2) mg/dL Total Bilirubin (0.0-1.0) mg/dL Direct Bilirubin (0.0-0.5) mg/dL AST (5-37) U/L ALT (0-40) U/L Alkaline Phosphatase (39-117) U/L Total Protein (6.5-8.0) g/dL Albumin (3.5-5.0) g/dL Lipase (8-78) U/L Urine Color Yellow Urine Appearance Clear Urine pH 5.5 (5.0-9.0) Ur Specific [place] >= 1.030 H (1.005-1.025) Urine Protein 30 (1+) H (Neg-Trace) mg/dL Urine Glucose (UA) >=1000 H (Negative) mg/dL Urine Ketones 40 (Negative) mg/dL Urine Blood Negative (Negative) Urine Nitrite Negative (Negative) Ur Leukocyte Esterase Negative (Negative) Urine RBC 0-2 (0-2) /HPF Urine WBC 0-5 (0-5) /HPF Ur Squamous Epith Cells 0-2 (0-2) /HPF Urine Bacteria None Seen (None Seen) Hyaline Casts 0-2 (0-2) /LPF Urine Opiates Screen (Not Detect) Urine Fentanyl Screen (Not Detect) Ur Barbiturates Screen (Not Detect) Ur Phencyclidine Scrn (Not Detect) Ur Amphetamines Screen (Not Detect) U Benzodiazepines Scrn (Not Detect) Urine Cocaine Screen (Not Detect) U Marijuana (THC) Screen (Not Detect) Acetone, Qual (Negative) COVID-19 (EARLINE) (Negative) COVID-19 Clin Com 06/16/22 06/17/22 Range/Units 23:44 00:22 WBC (4.8-10.8) X10*3/uL RBC (4.60-5.80) X10*6/uL Hgb (14.0-18.0) g/dl Hct (42.0-52.0) % MCV (80.0-98.0) fL MCH (27.0-33.0) pg MCHC (31.0-36.0) g/dl RDW (11.0-16.0) % Plt Count (160-400) X10*3/uL MPV (9.4-12.4) fL Immature Gran % (Auto) (0.0-0.4) % Neut % (Auto) (45-73) % Lymph % (Auto) (20-40) % [place] % (Auto) (2-11) % Eos % (Auto) (0-4) % Baso % (Auto) (0-2) % Lymph # (Auto) (1.2-4.9) X10*3/uL [place] # (Auto) (0.1-1.2) X10*3/uL Eos # (Auto) (0.0-0.4) X10*3/uL Baso # (Auto) (0.0-0.2) X10*3/uL Abs Immat Gran (auto) (0.00-0.03) X10*3/uL Absolute Neuts (auto) (2.0-8.3) x10*3/uL Absolute Nucleated RBC (0.0-0.012) X10*3/uL Nucleated RBC % (auto) (0.0-0.2) /100WBC VBG pH (7.32-7.43) VBG pCO2 mmHg VBG pO2 mmHg VBG HCO3 (22-26) mmol/L VBG O2 Saturation % VBG Base Excess mmol/L Sodium 138 (135-145) mmol/L Potassium 4.3 (3.3-5.1) mmol/L Chloride 101 (96-108) mmol/L Carbon Dioxide 23 (22-29) mmol/L Anion Gap 18 (12-20) BUN 17 H (9-16) mg/dL Creatinine 1.05 (0.5-1.4) mg/dL Estim Creat Clear Calc 96.2 Estimated GFR > 60 POC Glucose (60-115) mg/dL Random Glucose 244 H (60-115) mg/dL Lactic Acid (0.5-2.0) mmol/L Calcium 10.0 D (8.4-10.2) mg/dL Total Bilirubin (0.0-1.0) mg/dL Direct Bilirubin (0.0-0.5) mg/dL AST (5-37) U/L ALT (0-40) U/L Alkaline Phosphatase (39-117) U/L Total Protein (6.5-8.0) g/dL Albumin (3.5-5.0) g/dL Lipase (8-78) U/L Urine Color Urine Appearance Urine pH (5.0-9.0) Ur Specific [place] (1.005-1.025) Urine Protein (Neg-Trace) mg/dL Urine Glucose (UA) (Negative) mg/dL Urine Ketones (Negative) mg/dL Urine Blood (Negative) Urine Nitrite (Negative) Ur Leukocyte Esterase (Negative) Urine RBC (0-2) /HPF Urine WBC (0-5) /HPF Ur Squamous Epith Cells (0-2) /HPF Urine Bacteria (None Seen) Hyaline Casts (0-2) /LPF Urine Opiates Screen Not Detected (Not Detect) Urine Fentanyl Screen Not Detected (Not Detect) Ur Barbiturates Screen Not Detected (Not Detect) Ur Phencyclidine Scrn Not Detected (Not Detect) Ur Amphetamines Screen Not Detected (Not Detect) U Benzodiazepines Scrn Not Detected (Not Detect) Urine Cocaine Screen Not Detected (Not Detect) U Marijuana (THC) Screen POSITIVE H (Not Detect) Acetone, Qual (Negative) COVID-19 (EARLINE) (Negative) COVID-19 Clin Com Discharge Plan Discharge Clinical Impression: Diabetic gastroparesis, Dehydration Patient Disposition: Admitted As Inpatient
[2022-06-16] MEDS: 0.9 % Sodium Chloride 1,000 ML 999 ML IV (22:43)
[2022-06-16] MEDS: ondansetron HCL 4 MG/2 ML VIAL IVPUSH (22:46)
[2022-06-16] MEDS: Morphine Sulfate 2 MG/ML CARTRIDGE 1 MG IVPUSH (22:46)
[2022-06-16] MEDS: Insulin Regular, Human 100 UNIT/ML 3 ML VIAL 10 UNIT IVPUSH (22:46)
[2022-06-16 23:47] VITALS: BP 141/85; PULSE 82; RESP 18; TEMP 36.5; O2SAT 99
[2022-06-16 23:52] LABS: Glucose, Whole Blood 233 mg/dL (60-115)
[2022-06-17] LABS: Appearance Urine Clear; Color Urine Yellow; Glucose Urine UA >=1000 mg/dL (Negative); Leukocyte Esterase Urine Negative (Negative); Nitrite Urine Negative (Negative); PH 5.5 (5.0-9.0); Specific Gravity - Urine >= 1.030 (1.005-1.025); UMIC TRIGGER UACC YES; Urine Blood Negative (Negative); Urine Ketones 40 mg/dL (Negative); Urine Protein 30 (1+) mg/dL (Neg-Trace)
[2022-06-17 00:05] LABS: Bacteria Urine None Seen (None Seen); Hyaline Casts Urine 0-2 /LPF (0-2); RBC Urine 0-2 /HPF (0-2); Squamous Epithelial Cell Urine 0-2 /HPF (0-2); WBC Urine 0-5 /HPF (0-5)
[2022-06-17 00:13] LABS: Amphetamine Screen Urine Not Detected (Not Detect); Barbiturates, Urine Not Detected (Not Detect); Benzodiazepines Screen Urine Not Detected (Not Detect); Cannabinoid Screen Urine POSITIVE (Not Detect); Cocaine Screen Urine Not Detected (Not Detect); Fentanyl, urine Not Detected (Not Detect); Opiate Screen Urine Not Detected (Not Detect); Phencyclidine Screen Urine Not Detected (Not Detect)
[2022-06-17 00:50] LABS: Anion Gap 18 (12-20); Blood Urea Nitrogen 17 mg/dL (9-16); Carbon Dioxide 23 mmol/L (22-29); Chloride 101 mmol/L (96-108); Creatinine Clr Calc Pharmacy 96.2; Estimated Glomerular Filt Rate > 60; Glucose Random 244 mg/dL (60-115); Potassium 4.3 mmol/L (3.3-5.1); Sodium 138 mmol/L (135-145)
[2022-06-17 02:24] LABS: Glucose, Whole Blood 316 mg/dL (60-115)
[2022-06-17] MEDS: ondansetron HCL 4 MG/2 ML VIAL IVPUSH ×3 (02:43→17:10)
[2022-06-17] MEDS: 0.9 % Sodium Chloride 1,000 ML 999 ML IV (02:45)
--- NOTE | 2022-06-17 02:54 | PC.NURSE ---
RN attempted to discharge patient. Pt reported he continues to vomit after taking sips of fluids. Dr. Foote made aware ordered 4 mg of IV zofran and 1 L of NS. medications administered as ordered.
[2022-06-17 03:10] VITALS: BP 109/69; PULSE 104; RESP 18; TEMP 36.9; O2SAT 98
[2022-06-17 03:42] VITALS: RESP 16
[2022-06-17] MEDS: Morphine Sulfate 2 MG/ML CARTRIDGE 1 MG IVPUSH (03:42)
--- NOTE | 2022-06-17 05:27 | P.HPHOSP_ITS ---
History of Present Illness Date of Service: 06/17/22 Chief Complaint: Abdominal Pain, Nausea vomiting This is a 27-year-old male with pertinent history of insulin-dependent diabetes, mood disorder, gastroesophageal reflux disease who presents to the emergency department for evaluation of abdominal pain, nausea and vomiting. Patient states he started having the symptoms 1 day prior to presentation. Patient has generalized abdominal pain with nausea and multiple episodes of nonbloody emesis prior to presentation. States he is compliant with his insulin but does not specify how much he takes every day. Also smokes marijuana every day. Has had poor p.o. intake due to nonbloody emesis. Patient has history of DKA due to insulin noncompliance. In the emergency department, glucose was found to be in the 300s, urine ketone positive, and acidosis noted with anion gap of 21. Review of Systems Constitutional: Constitutional: Reports no additional constitutional complaints Cardiovascular: Cardiovascular: Reports no additional cardiovascular compla ints Respiratory: Respiratory: Reports no additional respiratory complaints Gastrointestinal: Gastrointestinal: Reports abdominal pain, Reports nausea and Reports vomiting [facility] Medical History (Updated 06/17/22 @ 05:44 by Milly Vaughn MD) Cyclical vomiting Diabetes Diabetic gastroparesis Diabetic keto-acidosis Esophageal ulcer Gastroparesis Leukocytosis Noncompliance with medication regimen Persistent hyperactive cannabis intoxication delirium Family History Other No family history of coronary artery disease Surgical History No pertinent past surgical history Social History Household Members: None Housing: Apartment Do you presently have visiting nurse or other home services: No Alcohol intake: never Patient Tobacco Use Status: Never used Tobacco Substance Use Type: Marijuana Advance Directives: Yes Advance Directives on File: Yes Advance Directives Date on File: 01/22/21 service: No Current occupational status: employed Meds Allergies Allergy/AdvReac Type Severity Reaction Status Date / Time passion fruit [PASSION FRUIT] Allergy Unknown UNK Verified 04/12/22 19:52 Home Medications Medication Instructions Recorded Confirmed Last Taken Type sertraline 25 mg tablet 25 mg PO DAILY 12/28/21 04/30/22 Unknown History insulin lispro 100 unit/mL See Rx Instructions .Route .COMPLEX 03/15/22 04/30/22 Unknown History subcutaneous solution pantoprazole 40 mg tablet,delayed 1 tab PO DAILY 03/15/22 04/30/22 Unknown History release insulin lispro protamine-lispro 50 unit subcut DAILY 04/30/22 04/30/22 Unknown History 100 unit/mL (75-25) subcutaneous pen insulin lispro protamine-lispro 60 unit subcut DAILY@1800 04/30/22 04/30/22 Unknown History 100 unit/mL (75-25) subcutaneous pen Physical Exam Vital Signs and Narrative: Vital Signs: Last Vital Signs Temp 98.4 F 06/17/22 03:10 Pulse 104 H 06/17/22 03:10 Resp 16 06/17/22 03:42 BP 109/69 06/17/22 03:10 Pulse Ox 98 06/17/22 03:10 O2 Del Method 06/17/22 03:10 BMI result Body Mass Index 26.6 Middle-aged male lying in bed in mild distress Neck supple, no JVD Regular rate and rhythm, S1-S2 heard Regular breath sounds bilaterally, no wheezing or crackles appreciated Abdomen with generalized tenderness, no guarding, no rebound tenderness Patient is awake, alert and oriented to self, place, time and person ; no focal motor deficit Psych: Normal mood No pedal edema Results Labs CBC and Chem 7: 06/16/22 20:25 06/17/22 00:22 Labs: Laboratory Results - last 24 hr 06/16/22 06/16/22 06/16/22 20:04 20:25 20:25 MCV 86.0 MCH 28.4 MCHC 33.0 RDW 12.7 Plt Count 298 MPV 10.1 Immature Gran % (Auto) 0.2 Neut % (Auto) 83.6 H Lymph % (Auto) 10.6 L [place] % (Auto) 5.2 Eos % (Auto) 0.2 Baso % (Auto) 0.2 Lymph # (Auto) 1.3 [place] # (Auto) 0.6 Eos # (Auto) 0.0 Baso # (Auto) 0.0 Abs Immat Gran (auto) 0.03 Absolute Neuts (auto) 10.1 H Absolute Nucleated RBC 0.000 Nucleated RBC % (auto) 0.0 VBG pH VBG pCO2 VBG pO2 VBG HCO3 VBG O2 Saturation VBG Base Excess Anion Gap 21 H Estim Creat Clear Calc 80.1 Estimated GFR > 60 POC Glucose 316 H Random Glucose 327 H D Lactic Acid Calcium 10.7 H D Total Bilirubin 0.7 Direct Bilirubin 0.2 AST 21 D ALT 25 Alkaline Phosphatase 76 D Total Protein 8.1 H D Albumin 4.9 D Lipase 22 Urine Color Urine Appearance Urine pH Ur Specific [place] Urine Protein Urine Glucose (UA) Urine Ketones Urine Blood Urine Nitrite Ur Leukocyte Esterase Urine RBC Urine WBC Ur Squamous Epith Cells Urine Bacteria Hyaline Casts Urine Opiates Screen Urine Fentanyl Screen Ur Barbiturates Screen Ur Phencyclidine Scrn Ur Amphetamines Screen U Benzodiazepines Scrn Urine Cocaine Screen U Marijuana (THC) Screen Acetone, Qual Negative COVID-19 (EARLINE) COVID-19 [employer] 06/16/22 06/16/22 06/16/22 20:25 20:25 20:27 MCV MCH MCHC RDW Plt Count MPV Immature Gran % (Auto) Neut % (Auto) Lymph % (Auto) [place] % (Auto) Eos % (Auto) Baso % (Auto) Lymph # (Auto) [place] # (Auto) Eos # (Auto) Baso # (Auto) Abs Immat Gran (auto) Absolute Neuts (auto) Absolute Nucleated RBC Nucleated RBC % (auto) VBG pH 7.32 VBG pCO2 40 VBG pO2 40 VBG HCO3 21 L VBG O2 Saturation 56.0 VBG Base Excess -4.5 Anion Gap Estim Creat Clear Calc Estimated GFR POC Glucose Random Glucose Lactic Acid 1.4 Calcium Total Bilirubin Direct Bilirubin AST ALT Alkaline Phosphatase Total Protein Albumin Lipase Urine Color Urine Appearance Urine pH Ur Specific [place] Urine Protein Urine Glucose (UA) Urine Ketones Urine Blood Urine Nitrite Ur Leukocyte Esterase Urine RBC Urine WBC Ur Squamous Epith Cells Urine Bacteria Hyaline Casts Urine Opiates Screen Urine Fentanyl Screen Ur Barbiturates Screen Ur Phencyclidine Scrn Ur Amphetamines Screen U Benzodiazepines Scrn Urine Cocaine Screen U Marijuana (THC) Screen Acetone, Qual COVID-19 (EARLINE) Negative [email or web address] See Note 06/16/22 06/16/22 06/16/22 22:04 23:41 23:44 MCV MCH MCHC RDW Plt Count MPV Immature Gran % (Auto) Neut % (Auto) Lymph % (Auto) [place] % (Auto) Eos % (Auto) Baso % (Auto) Lymph # (Auto) [place] # (Auto) Eos # (Auto) Baso # (Auto) Abs Immat Gran (auto) Absolute Neuts (auto) Absolute Nucleated RBC Nucleated RBC % (auto) VBG pH VBG pCO2 VBG pO2 VBG HCO3 VBG O2 Saturation VBG Base Excess Anion Gap Estim Creat Clear Calc Estimated GFR POC Glucose 304 H 233 H Random Glucose Lactic Acid Calcium Total Bilirubin Direct Bilirubin AST ALT Alkaline Phosphatase Total Protein Albumin Lipase Urine Color Yellow Urine Appearance Clear Urine pH 5.5 Ur Specific [place] >= 1.030 H Urine Protein 30 (1+) H Urine Glucose (UA) >=1000 H Urine Ketones 40 Urine Blood Negative Urine Nitrite Negative Ur Leukocyte Esterase Negative Urine RBC 0-2 Urine WBC 0-5 Ur Squamous Epith Cells 0-2 Urine Bacteria None Seen Hyaline Casts 0-2 Urine Opiates Screen Urine Fentanyl Screen Ur Barbiturates Screen Ur Phencyclidine Scrn Ur Amphetamines Screen U Benzodiazepines Scrn Urine Cocaine Screen U Marijuana (THC) Screen Acetone, Qual COVID-19 (EARLINE) COVID-19 [employer] 06/16/22 06/17/22 23:44 00:22 MCV MCH MCHC RDW Plt Count MPV Immature Gran % (Auto) Neut % (Auto) Lymph % (Auto) [place] % (Auto) Eos % (Auto) Baso % (Auto) Lymph # (Auto) [place] # (Auto) Eos # (Auto) Baso # (Auto) Abs Immat Gran (auto) Absolute Neuts (auto) Absolute Nucleated RBC Nucleated RBC % (auto) VBG pH VBG pCO2 VBG pO2 VBG HCO3 VBG O2 Saturation VBG Base Excess Anion Gap 18 Estim Creat Clear Calc 96.2 Estimated GFR > 60 POC Glucose Random Glucose 244 H Lactic Acid Calcium 10.0 D Total Bilirubin Direct Bilirubin AST ALT Alkaline Phosphatase Total Protein Albumin Lipase Urine Color Urine Appearance Urine pH Ur Specific [place] Urine Protein Urine Glucose (UA) Urine Ketones Urine Blood Urine Nitrite Ur Leukocyte Esterase Urine RBC Urine WBC Ur Squamous Epith Cells Urine Bacteria Hyaline Casts Urine Opiates Screen Not Detected Urine Fentanyl Screen Not Detected Ur Barbiturates Screen Not Detected Ur Phencyclidine Scrn Not Detected Ur Amphetamines Screen Not Detected U Benzodiazepines Scrn Not Detected Urine Cocaine Screen Not Detected U Marijuana (THC) Screen POSITIVE H Acetone, Qual COVID-19 (EARLINE) COVID-19 [employer] Imaging Radiologist's Impressions: Impressions KUB X-Ray 06/17/22 04:28 IMPRESSION: Nonobstructive bowel gas pattern. Assessment and Plan (1) Diabetic keto-acidosis: Status: Acute (2) Abdominal pain: Status: Acute (3) Cannabis hyperemesis syndrome concurrent with and due to cannabis abuse: Status: Acute Plan This is a 27-year-old male with pertinent history of insulin-dependent diabetes, mood disorder, gastroesophageal reflux disease who presents to the emergency department for evaluation of abdominal pain, nausea and vomiting. #. Mild DKA -unsure of medication compliance. Received IV insulin and IV fluids in the ER. Administering basal insulin. -Will benefit from establishing care with endocrinology -Continue home insulin regimen. Initiating Accu-Cheks sliding scale insulin before meals and at bedtime. -Diabetic diet as tolerated #. Cannabis hyperemesis syndrome -likely contributing to his symptoms. -counseled against usage -administering capsaicin cream #. Abdominal Pain with nausea/vomiting -due to DKA + cannabis hyperemesis -consider imaging +/- GI consult if symptoms continue. -has had recent CT abdomen without acute findings and symptoms resolve with resolution of DKA #. Mood disorder -on sertraline #. GERD -on protonix Med rec pending DVT prophylaxis: Lovenoc 40mg daily Full code Diabetic diet Admit as inpatient and will require two night minimum hospital stay for close monitoring of sugars. Quality Stroke Does the patient have a stroke diagnosis?: No VTE Prior VTE?: No VTE Risk Level:: Medical - low VTE Device Contraindication: Treatment Not Indicated VTE Drug Contraindication: N/A - Med Ordered
[2022-06-17 05:45] VITALS: BP 118/72; PULSE 94; RESP 16; TEMP 36.9; O2SAT 99
[2022-06-17 06:11] LABS: Glucose, Whole Blood 295 mg/dL (60-115)
[2022-06-17] MEDS: Insulin Glargine,Hum.rec.anlog 100 UNIT/ML 10 ML VIAL 20 UNIT SUBCUT (06:18)
[2022-06-17] MEDS: Pantoprazole Sodium 40 MG/10 ML VIAL IVPUSH (06:18)
[2022-06-17] MEDS: Enoxaparin Sodium 40 MG/0.4 ML SYRINGE SUBCUT (06:18)
[2022-06-17] MEDS: Insulin Regular, Human 100 UNIT/ML 3 ML VIAL IVPUSH (06:20)
[2022-06-17 06:36] LABS: MANUAL DIFF FLAG NO
[2022-06-17 06:42] LABS: Basophils Percent Auto 0.2 % (0-2); Hematocrit 40.5 % (42.0-52.0); Hemoglobin 13.8 g/dl (14.0-18.0); Imm Gran Abs Auto 0.05 X10*3/uL (0.00-0.03); Imm Gran Pct Auto 0.4 % (0.0-0.4); Lymphocytes Absolute Auto 1.1 X10*3/uL (1.2-4.9); Lymphocytes Percent Auto 9.3 % (20-40); Mean Corpuscular HGB Conc 34.1 g/dl (31.0-36.0); Mean Corpuscular Hemoglobin 28.8 pg (27.0-33.0); Mean Corpuscular Volume 84.6 fL (80.0-98.0); Mean Platelet Volume 10.5 fL (9.4-12.4); Monocytes Absolute Auto 0.5 X10*3/uL (0.1-1.2); Neutrophils Absolute Auto 10.1 x10*3/uL (2.0-8.3); Neutrophils Percent Auto 86.1 % (45-73); Platelet Count 294 X10*3/uL (160-400); Red Blood Count 4.79 X10*6/uL (4.60-5.80); Red Cell Distribution Width 12.6 % (11.0-16.0); White Blood Count 11.7 X10*3/uL (4.8-10.8)
[2022-06-17 06:51] LABS: Estimated Average Glucose 235 mg/dL; Hemoglobin A1c % 9.8 %
[2022-06-17 06:59] LABS: Anion Gap 19 (12-20); Blood Urea Nitrogen 16 mg/dL (9-16); Calcium 9.2 mg/dL (8.4-10.2); Carbon Dioxide 21 mmol/L (22-29); Chloride 101 mmol/L (96-108); Creatinine Clr Calc Pharmacy 96.2; Estimated Glomerular Filt Rate > 60; Sodium 136 mmol/L (135-145)
[2022-06-17 07:06] LABS: Glucose Random 331 mg/dL (60-115)
[2022-06-17 07:18] LABS: Glucose, Whole Blood 279 mg/dL (60-115)
[2022-06-17] MEDS: Insulin Lispro 100 UNIT/ML 3 ML VIAL SUBCUT ×3 (08:48→22:44)
[2022-06-17] MEDS: 0.9 % Sodium Chloride Flush 3 ML SYRINGE IVFLUSH ×3 (08:51→20:29)
--- NOTE | 2022-06-17 10:08 | PHA.MEDREC ---
Pharmacy Consult ? Medication Reconciliation Pharmacy has completed the medication reconciliation. Patient confirmed medications. Reports he does not have a sliding scale insulin but thinks he needs one. Mindy Ryder, PharmD
[2022-06-17] MEDS: Capsaicin 0.025% Cream 60 GM TUBE 1 APPL TOPICAL ×3 (10:17→20:33)
--- NOTE | 2022-06-17 10:58 | MHC.CM.PN ---
Met with patient in regards to discharge planning. Patient lives with his girlfriend, ambulates independently and had no services prior to coming to the hospital. No services anticipated to be needed because patient is not homebound. PCP verified. HCP verified to be on file. Patient received 2 Pfizer vaccines. Patient's girlfriend will transport him home when medically stable. Continue to monitor for d/c needs.
[2022-06-17] MEDS: Lactated Ringers 1,000 ML 100 ML IVCONT (12:47)
[2022-06-17] MEDS: Famotidine/PF 20 MG/2 ML VIAL IVPUSH (12:50)
[2022-06-17 13:31] LABS: Glucose, Whole Blood 215 mg/dL (60-115)
--- NOTE | 2022-06-17 14:00 | HO.PM.IMPN ---
Subjective Subjective Date of Service: 06/17/22 Interval History: seen and examined this morning follow up for DKA, vomiting patient still with nausea, unable to take po this am some upper abdominal pain Review of Systems Review of Systems: Yes all other systems are reviewed and are negative Constitutional Constitutional: Denies chills and Denies fever(s) ENT Ears, Nose, Mouth, and Throat: Denies dizziness Cardiovascular Cardiovascular: Denies chest pain, Denies palpitations and Denies dyspnea Respiratory Respiratory: Denies cough and Denies dyspnea Gastrointestinal Gastrointestinal: Reports abdominal pain, Denies constipation and Reports vomiting Neurologic Neurologic: Denies dizziness Endocrine Endocrine: Denies palpitations Physical Exam Vital Signs: Vital Signs: Last Vital Signs Temp 98.5 F 06/17/22 05:45 Pulse 94 06/17/22 05:45 Resp 16 06/17/22 05:45 BP 118/72 06/17/22 05:45 Pulse Ox 99 06/17/22 05:45 O2 Del Method 06/17/22 05:45 BMI result Body Mass Index 26.6 Const: General: comfortable, alert and awake Nutritional Appearance: average body habitus Orientation/consciousness: patient oriented x3 Resp: Effort & Inspection: normal respiratory effort and able to speak in complete sentences Cardio: Rate: regular rate Heart sounds: S1 normal heart sound present and S2 normal heart sound present GI: Inspection: No distended Palpation (GI): Soft to palpation Neuro: General: patient oriented x3 and CN's II-XI intact bilaterally Extrem: General: Yes no pedal edema Objective Data Active Medications Acetaminophen (Acetaminophen 325 Mg Tablet) 650 mg PO Q6H PRN PRN Reason: Pain, Mild (Pain Scale 1-3) Capsaicin (Capsaicin 0.025% Cream 60 Gm Tube) 1 appl TOPICAL TID [facility]; Protocol Last Admin: 06/17/22 10:17 Dose: 1 appl Documented By: BRITTANI Dextrose (Dextrose 50 % 25 Gm/50 Ml Syringe) 25 gm IVPUSH Q15M PRN; Protocol PRN Reason: per Hypoglycemia Standing Ord. Enoxaparin Sodium (Enoxaparin Sodium 40 Mg/0.4 Ml Syringe) 40 mg SUBCUT Q24H [facility] Last Admin: 06/17/22 06:18 Dose: 40 mg Documented By: ELLIOTT Famotidine (Famotidine/Pf 20 Mg/2 Ml Vial) 20 mg IVPUSH DAILY [facility] Last Admin: 06/17/22 12:50 Dose: 20 mg Documented By: ELVIE Glucose (Glucose Gel 15 Gm Gel..Gram.) 15 gm PO Q15M PRN; Protocol PRN Reason: per Hypoglycemia Standing Ord. Lactated Ringer's (Lr) 1,000 mls @ 100 mls/hr IVCONT .Q10H [facility] Last Admin: 06/17/22 12:47 Dose: 100 mls/hr Documented By: ELVIE Insulin Human Lispro (Insulin Lispro 100 Unit/Ml 3 Ml Vial) 0.1 - 10 unit SUBCUT QIDACHS [facility]; Protocol Stop: 06/18/22 05:30 Last Admin: 06/17/22 13:41 Dose: 4 unit Documented By: BRITTANI Melatonin (Melatonin 3 Mg Tablet) 6 mg PO BEDTIME PRN PRN Reason: Insomnia Ondansetron HCl (Ondansetron Hcl 4 Mg/2 Ml Vial) 4 mg IVPUSH Q6H PRN PRN Reason: Nausea and Vomiting Pharmacy Consult (Consult Rx Perform Med Rec) 1 each MISCELLANE ONCE PRN PRN Reason: Consult order Sodium Chloride (0.9 % Sodium Chloride Flush 3 Ml Syringe) 3 ml IVFLUSH QSHIFT [facility] Last Admin: 06/17/22 08:51 Dose: 3 ml Documented By: BRITTANI Labs CBC & Chem 7: 06/17/22 06:10 06/17/22 06:10 Labs: Laboratory Results - last 24 hr 06/16/22 06/16/22 06/16/22 20:04 20:25 20:25 MCV 86.0 MCH 28.4 MCHC 33.0 RDW 12.7 Plt Count 298 MPV 10.1 Immature Gran % (Auto) 0.2 Neut % (Auto) 83.6 H Lymph % (Auto) 10.6 L [place] % (Auto) 5.2 Eos % (Auto) 0.2 Baso % (Auto) 0.2 Lymph # (Auto) 1.3 [place] # (Auto) 0.6 Eos # (Auto) 0.0 Baso # (Auto) 0.0 Abs Immat Gran (auto) 0.03 Absolute Neuts (auto) 10.1 H Absolute Nucleated RBC 0.000 Nucleated RBC % (auto) 0.0 VBG pH VBG pCO2 VBG pO2 VBG HCO3 VBG O2 Saturation VBG Base Excess Anion Gap 21 H Estim Creat Clear Calc 80.1 Estimated GFR > 60 POC Glucose 316 H Random Glucose 327 H D Estimat Average Glucose Hemoglobin A1c % Lactic Acid Calcium 10.7 H D Total Bilirubin 0.7 Direct Bilirubin 0.2 AST 21 D ALT 25 Alkaline Phosphatase 76 D Total Protein 8.1 H D Albumin 4.9 D Lipase 22 Urine Color Urine Appearance Urine pH Ur Specific [place] Urine Protein Urine Glucose (UA) Urine Ketones Urine Blood Urine Nitrite Ur Leukocyte Esterase Urine RBC Urine WBC Ur Squamous Epith Cells Urine Bacteria Hyaline Casts Urine Opiates Screen Urine Fentanyl Screen Ur Barbiturates Screen Ur Phencyclidine Scrn Ur Amphetamines Screen U Benzodiazepines Scrn Urine Cocaine Screen U Marijuana (THC) Screen Acetone, Qual Negative COVID-19 (EARLINE) COVID-19 Clin Com 06/16/22 06/16/22 06/16/22 20:25 20:25 20:27 MCV MCH MCHC RDW Plt Count MPV Immature Gran % (Auto) Neut % (Auto) Lymph % (Auto) [place] % (Auto) Eos % (Auto) Baso % (Auto) Lymph # (Auto) [place] # (Auto) Eos # (Auto) Baso # (Auto) Abs Immat Gran (auto) Absolute Neuts (auto) Absolute Nucleated RBC Nucleated RBC % (auto) VBG pH 7.32 VBG pCO2 40 VBG pO2 40 VBG HCO3 21 L VBG O2 Saturation 56.0 VBG Base Excess -4.5 Anion Gap Estim Creat Clear Calc Estimated GFR POC Glucose Random Glucose Estimat Average Glucose Hemoglobin A1c % Lactic Acid 1.4 Calcium Total Bilirubin Direct Bilirubin AST ALT Alkaline Phosphatase Total Protein Albumin Lipase Urine Color Urine Appearance Urine pH Ur Specific [place] Urine Protein Urine Glucose (UA) Urine Ketones Urine Blood Urine Nitrite Ur Leukocyte Esterase Urine RBC Urine WBC Ur Squamous Epith Cells Urine Bacteria Hyaline Casts Urine Opiates Screen Urine Fentanyl Screen Ur Barbiturates Screen Ur Phencyclidine Scrn Ur Amphetamines Screen U Benzodiazepines Scrn Urine Cocaine Screen U Marijuana (THC) Screen Acetone, Qual COVID-19 (EARLINE) Negative COVID-19 Clin Com See Note 06/16/22 06/16/22 06/16/22 22:04 23:41 23:44 MCV MCH MCHC RDW Plt Count MPV Immature Gran % (Auto) Neut % (Auto) Lymph % (Auto) [place] % (Auto) Eos % (Auto) Baso % (Auto) Lymph # (Auto) [place] # (Auto) Eos # (Auto) Baso # (Auto) Abs Immat Gran (auto) Absolute Neuts (auto) Absolute Nucleated RBC Nucleated RBC % (auto) VBG pH VBG pCO2 VBG pO2 VBG HCO3 VBG O2 Saturation VBG Base Excess Anion Gap Estim Creat Clear Calc Estimated GFR POC Glucose 304 H 233 H Random Glucose Estimat Average Glucose Hemoglobin A1c % Lactic Acid Calcium Total Bilirubin Direct Bilirubin AST ALT Alkaline Phosphatase Total Protein Albumin Lipase Urine Color Yellow Urine Appearance Clear Urine pH 5.5 Ur Specific [place] >= 1.030 H Urine Protein 30 (1+) H Urine Glucose (UA) >=1000 H Urine Ketones 40 Urine Blood Negative Urine Nitrite Negative Ur Leukocyte Esterase Negative Urine RBC 0-2 Urine WBC 0-5 Ur Squamous Epith Cells 0-2 Urine Bacteria None Seen Hyaline Casts 0-2 Urine Opiates Screen Urine Fentanyl Screen Ur Barbiturates Screen Ur Phencyclidine Scrn Ur Amphetamines Screen U Benzodiazepines Scrn Urine Cocaine Screen U Marijuana (THC) Screen Acetone, Qual COVID-19 (EARLINE) COVID-19 Clin Com 06/16/22 06/17/22 06/17/22 23:44 00:22 06:07 MCV MCH MCHC RDW Plt Count MPV Immature Gran % (Auto) Neut % (Auto) Lymph % (Auto) [place] % (Auto) Eos % (Auto) Baso % (Auto) Lymph # (Auto) [place] # (Auto) Eos # (Auto) Baso # (Auto) Abs Immat Gran (auto) Absolute Neuts (auto) Absolute Nucleated RBC Nucleated RBC % (auto) VBG pH VBG pCO2 VBG pO2 VBG HCO3 VBG O2 Saturation VBG Base Excess Anion Gap 18 Estim Creat Clear Calc 96.2 Estimated GFR > 60 POC Glucose 295 H Random Glucose 244 H Estimat Average Glucose Hemoglobin A1c % Lactic Acid Calcium 10.0 D Total Bilirubin Direct Bilirubin AST ALT Alkaline Phosphatase Total Protein Albumin Lipase Urine Color Urine Appearance Urine pH Ur Specific [place] Urine Protein Urine Glucose (UA) Urine Ketones Urine Blood Urine Nitrite Ur Leukocyte Esterase Urine RBC Urine WBC Ur Squamous Epith Cells Urine Bacteria Hyaline Casts Urine Opiates Screen Not Detected Urine Fentanyl Screen Not Detected Ur Barbiturates Screen Not Detected Ur Phencyclidine Scrn Not Detected Ur Amphetamines Screen Not Detected U Benzodiazepines Scrn Not Detected Urine Cocaine Screen Not Detected U Marijuana (THC) Screen POSITIVE H Acetone, Qual COVID-19 (EARLINE) COVID-19 [employer] Com 06/17/22 06/17/22 06/17/22 06:10 06:10 06:10 MCV 84.6 MCH 28.8 MCHC 34.1 RDW 12.6 Plt Count 294 MPV 10.5 Immature Gran % (Auto) 0.4 Neut % (Auto) 86.1 H Lymph % (Auto) 9.3 L [place] % (Auto) 4.0 Eos % (Auto) 0.0 Baso % (Auto) 0.2 Lymph # (Auto) 1.1 L [place] # (Auto) 0.5 Eos # (Auto) 0.0 Baso # (Auto) 0.0 Abs Immat Gran (auto) 0.05 H Absolute Neuts (auto) 10.1 H Absolute Nucleated RBC 0.000 Nucleated RBC % (auto) 0.0 VBG pH VBG pCO2 VBG pO2 VBG HCO3 VBG O2 Saturation VBG Base Excess Anion Gap 19 Estim Creat Clear Calc 96.2 Estimated GFR > 60 POC Glucose Random Glucose 331 H Estimat Average Glucose 235 Hemoglobin A1c % 9.8 Lactic Acid Calcium 9.2 D Total Bilirubin Direct Bilirubin AST ALT Alkaline Phosphatase Total Protein Albumin Lipase Urine Color Urine Appearance Urine pH Ur Specific [place] Urine Protein Urine Glucose (UA) Urine Ketones Urine Blood Urine Nitrite Ur Leukocyte Esterase Urine RBC Urine WBC Ur Squamous Epith Cells Urine Bacteria Hyaline Casts Urine Opiates Screen Urine Fentanyl Screen Ur Barbiturates Screen Ur Phencyclidine Scrn Ur Amphetamines Screen U Benzodiazepines Scrn Urine Cocaine Screen U Marijuana (THC) Screen Acetone, Qual COVID-19 (EARLINE) COVID-19 Clin [employer] 06/17/22 06/17/22 07:15 13:27 MCV MCH MCHC RDW Plt Count MPV Immature Gran % (Auto) Neut % (Auto) Lymph % (Auto) [place] % (Auto) Eos % (Auto) Baso % (Auto) Lymph # (Auto) [place] # (Auto) Eos # (Auto) Baso # (Auto) Abs Immat Gran (auto) Absolute Neuts (auto) Absolute Nucleated RBC Nucleated RBC % (auto) VBG pH VBG pCO2 VBG pO2 VBG HCO3 VBG O2 Saturation VBG Base Excess Anion Gap Estim Creat Clear Calc Estimated GFR POC Glucose 279 H 215 H Random Glucose Estimat Average Glucose Hemoglobin A1c % Lactic Acid Calcium Total Bilirubin Direct Bilirubin AST ALT Alkaline Phosphatase Total Protein Albumin Lipase Urine Color Urine Appearance Urine pH Ur Specific [place] Urine Protein Urine Glucose (UA) Urine Ketones Urine Blood Urine Nitrite Ur Leukocyte Esterase Urine RBC Urine WBC Ur Squamous Epith Cells Urine Bacteria Hyaline Casts Urine Opiates Screen Urine Fentanyl Screen Ur Barbiturates Screen Ur Phencyclidine Scrn Ur Amphetamines Screen U Benzodiazepines Scrn Urine Cocaine Screen U Marijuana (THC) Screen Acetone, Qual COVID-19 (EARLINE) COVID-19 Clin Com Assessment and Plan (1) Cannabis hyperemesis syndrome concurrent with and due to cannabis abuse: Status: Acute (2) Diabetic keto-acidosis: Status: Acute (3) Diabetic gastroparesis: Status: Acute Plan This is a 27-year-old male with pertinent history of insulin-dependent diabetes, mood disorder, gastroesophageal reflux disease who presents to the emergency department for evaluation of abdominal pain, nausea and vomiting. Mild DKA reports medication compliance likely r/t vomiting, no source of infection identified Anion gap closed received 20U Lantus this am follows with endocrinology at [facility] [place] [facility] diet as toerated -continue POCs, SSI Cannabis hyperemesis syndrome likely contributing to his symptoms counseled against usage -capsaicin cream -IVF, antiemetics Abdominal Pain with nausea/vomiting due to DKA + cannabis hyperemesis lipase 22, LFTs wnl CT abdomen negative;p KUB nonobstructive bowel pattern symptomatic support Mood disorder continue sertraline GERD continue protonix Med rec pending DVT prophylaxis: Lovenox 40mg daily Full code Diabetic diet attending - dr. rodriguez requires ongoing inpatient hospitalization for management of hyperemesis /close monitoring of blood sugar Quality Stroke Does the patient have a stroke diagnosis?: No VTE Prior VTE?: No VTE Risk Level:: Medical - low VTE Device Contraindication: Treatment Not Indicated VTE Drug Contraindication: N/A - Med Ordered
--- NOTE | 2022-06-17 15:12 | PC.NURSE ---
Report given to Mike MARQUEZ. PT will be transported to room 359.
[2022-06-17 15:52] VITALS: BMI 26.6
[2022-06-17 17:04] LABS: Glucose, Whole Blood 254 mg/dL (60-115)
[2022-06-17 19:57] VITALS: BP 138/92; PULSE 105; RESP 18; TEMP 36.6; O2SAT 97
[2022-06-17 20:11] LABS: Glucose, Whole Blood 284 mg/dL (60-115)
--- NOTE | 2022-06-17 22:05 | PC.NURSE ---
PT not eating BS 284, PT refusing insulin, MD Vaughn notified, PT education provided, will reaproach, PT also asking for Morphine for pain, Tylenol and Capsaicin offered as ordered.
[2022-06-18 01:10] VITALS: BP 138/88; PULSE 99; RESP 18; TEMP 36.3; O2SAT 98
[2022-06-18] MEDS: Lactated Ringers 1,000 ML 100 ML IVCONT ×2 (03:22→20:20)
[2022-06-18 04:00] VITALS: BP 145/97; PULSE 103; RESP 18; TEMP 36.3; O2SAT 99
--- NOTE | 2022-06-18 04:59 | PC.NURSE ---
PT IV paused several times due to PT in shower 4 times for extended period of time due to abd pain per PT. MD Roderick vzáquez.
[2022-06-18 07:11] VITALS: BP 143/93; PULSE 98; RESP 18; TEMP 36.9; O2SAT 100
[2022-06-18 07:19] LABS: Glucose, Whole Blood 287 mg/dL (60-115)
[2022-06-18] MEDS: ondansetron HCL 4 MG/2 ML VIAL IVPUSH (07:22)
[2022-06-18 07:57] LABS: Anion Gap 16 (12-20); Blood Urea Nitrogen 15 mg/dL (9-16); Calcium 9.6 mg/dL (8.4-10.2); Carbon Dioxide 23 mmol/L (22-29); Chloride 98 mmol/L (96-108); Creatinine Clr Calc Pharmacy 84.1; Estimated Glomerular Filt Rate > 60; Glucose Random 308 mg/dL (60-115); Potassium 4.2 mmol/L (3.3-5.1); Sodium 133 mmol/L (135-145)
--- NOTE | 2022-06-18 07:58 | PC.NURSE ---
Addendum entered by Linda Hong RN 06/18/22 09:11: POC recheck 243. Patria Garcia notified. Original Note: pt refusing to eat breakfast. POC 287. pt reports feeling nauseous. 4mg IV ondansetron given. Patria Garcia notified. Patria advised giving 6 units Lispro per sliding scale and ordered 30 units Lantus and to recheck POC after one hour. Lispro and Lantus given at 0809. Will recheck at 0909.
[2022-06-18] MEDS: Famotidine/PF 20 MG/2 ML VIAL IVPUSH (08:09)
[2022-06-18] MEDS: Insulin Glargine,Hum.rec.anlog 100 UNIT/ML 10 ML VIAL 30 UNIT SUBCUT (08:09)
[2022-06-18] MEDS: Insulin Lispro 100 UNIT/ML 3 ML VIAL SUBCUT ×4 (08:10→20:26)
[2022-06-18 09:10] LABS: Glucose, Whole Blood 243 mg/dL (60-115)
[2022-06-18 11:02] VITALS: BP 169/83; PULSE 89; RESP 18; TEMP 36.2; O2SAT 99
[2022-06-18 11:12] LABS: Glucose, Whole Blood 179 mg/dL (60-115)
[2022-06-18] MEDS: Morphine Sulfate 2 MG/ML CARTRIDGE IVPUSH ×2 (11:22→17:01)
--- NOTE | 2022-06-18 12:02 | HO.PM.IMPN ---
Subjective Subjective Date of Service: 06/18/22 Interval History: seen and examined this morning follow up for DKA, hyperemesis will nausea and epigastric abdominal discomfort this am Review of Systems Review of Systems: Yes all other systems are reviewed and are negative Constitutional Constitutional: Denies chills and Denies fever(s) Cardiovascular Cardiovascular: Denies chest pain, Denies palpitations and Denies dyspnea Respiratory Respiratory: Denies cough and Denies dyspnea Gastrointestinal Gastrointestinal: Denies abdominal pain, Denies nausea and Denies vomiting Endocrine Endocrine: Denies palpitations Physical Exam Vital Signs: Vital Signs: Last Vital Signs Temp 97.1 F 06/18/22 11:02 Pulse 89 06/18/22 11:02 Resp 18 06/18/22 11:02 BP 169/83 H 06/18/22 11:02 Pulse Ox 99 06/18/22 11:02 O2 Del Method 06/18/22 11:02 BMI result Body Mass Index 26.6 Const: General: cooperative, no acute distress, alert and awake Nutritional Appearance: average body habitus Orientation/consciousness: patient oriented x3 Resp: Effort & Inspection: normal respiratory effort and able to speak in complete sentences Auscultation: clear to auscultation bilaterally Cardio: Rate: regular rate Heart sounds: S1 normal heart sound present and S2 normal heart sound present GI: Other: mild tenderness with deep palpation epigastrum, no guarding, no rebound Inspection: No distended Palpation (GI): Soft to palpation Neuro: General: patient oriented x3 and CN's II-XI intact bilaterally Extrem: General: Yes no pedal edema Objective Data Active Medications Acetaminophen (Acetaminophen 325 Mg Tablet) 650 mg PO Q6H PRN PRN Reason: Pain, Mild (Pain Scale 1-3) Capsaicin (Capsaicin 0.025% Cream 60 Gm Tube) 1 appl TOPICAL TID [facility]; Protocol Last Admin: 06/18/22 08:10 Dose: Not Given Documented By: BRANDON Non-Admin Reason: Patient Refused Dextrose (Dextrose 50 % 25 Gm/50 Ml Syringe) 25 gm IVPUSH Q15M PRN; Protocol PRN Reason: per Hypoglycemia Standing Ord. Dextrose (Dextrose 50 % 25 Gm/50 Ml Syringe) 25 gm IVPUSH Q15M PRN; Protocol PRN Reason: per Hypoglycemia Standing Ord. Enoxaparin Sodium (Enoxaparin Sodium 40 Mg/0.4 Ml Syringe) 40 mg SUBCUT Q24H [facility] Last Admin: 06/18/22 05:15 Dose: Not Given Documented By: ANJELICA Non-Admin Reason: Patient Refused Famotidine (Famotidine/Pf 20 Mg/2 Ml Vial) 20 mg IVPUSH DAILY [facility] Last Admin: 06/18/22 08:09 Dose: 20 mg Documented By: BRANDON Glucose (Glucose Gel 15 Gm Gel..Gram.) 15 gm PO Q15M PRN; Protocol PRN Reason: per Hypoglycemia Standing Ord. Glucose (Glucose Gel 15 Gm Gel..Gram.) 15 gm PO Q15M PRN; Protocol PRN Reason: per Hypoglycemia Standing Ord. Lactated Ringer's (Lr) 1,000 mls @ 100 mls/hr IVCONT .Q10H [facility] Last Infusion: 06/18/22 11:36 Dose: 0 mls/hr Documented By: BRANDON Insulin Glargine (Insulin Glargine,Hum.Rec.Anlog 100 Unit/Ml 10 Ml Vial) 30 unit SUBCUT DAILY [facility] Last Admin: 06/18/22 08:09 Dose: 30 unit Documented By: BRANDON Insulin Human Lispro (Insulin Lispro 100 Unit/Ml 3 Ml Vial) 0 unit SUBCUT QIDACHS [facility]; Protocol Last Admin: 06/18/22 11:21 Dose: 2 unit Documented By: BRANDON Melatonin (Melatonin 3 Mg Tablet) 6 mg PO BEDTIME PRN PRN Reason: Insomnia Morphine Sulfate (Morphine Sulfate 2 Mg/Ml Cartridge) 2 mg IVPUSH Q4H PRN; Protocol PRN Reason: Pain, Severe (Pain Scale 7-10) Last Admin: 06/18/22 11:22 Dose: 2 mg Documented By: BRANDON Omeprazole (Omeprazole 20 Mg Capsule.) 20 mg PO DAILY@0630 [facility] Last Admin: 06/18/22 05:15 Dose: Not Given Documented By: ANJELICA Non-Admin Reason: Patient Refused Ondansetron HCl (Ondansetron Hcl 4 Mg/2 Ml Vial) 4 mg IVPUSH Q6H PRN PRN Reason: Nausea and Vomiting Last Admin: 06/18/22 07:22 Dose: 4 mg Documented By: BRANDON Pharmacy Consult (Consult Rx Perform Med Rec) 1 each MISCELLANE ONCE PRN PRN Reason: Consult order Sertraline HCl (Sertraline Hcl 25 Mg Tablet) 25 mg PO DAILY [facility] Last Admin: 06/18/22 11:21 Dose: Not Given Documented By: BRANDON Non-Admin Reason: Patient Refused Sodium Chloride (0.9 % Sodium Chloride Flush 3 Ml Syringe) 3 ml IVFLUSH QSHIFT [facility] Last Admin: 06/18/22 07:36 Dose: Not Given Documented By: BRANDON Non-Admin Reason: IV Running Labs CBC & Chem 7: 06/17/22 06:10 06/18/22 07:20 Labs: Laboratory Results - last 24 hr 06/17/22 06/17/22 06/17/22 13:27 15:57 20:06 Anion Gap Estim Creat Clear Calc Estimated GFR POC Glucose 215 H 254 H 284 H Random Glucose Calcium 06/18/22 06/18/22 06/18/22 07:14 07:20 09:07 Anion Gap 16 Estim Creat Clear Calc 84.1 Estimated GFR > 60 POC Glucose 287 H 243 H Random Glucose 308 H Calcium 9.6 06/18/22 11:04 Anion Gap Estim Creat Clear Calc Estimated GFR POC Glucose 179 H Random Glucose Calcium Assessment and Plan (1) Cannabis hyperemesis syndrome concurrent with and due to cannabis abuse: Status: Acute (2) Diabetic keto-acidosis: Status: Acute (3) Diabetic gastroparesis: Status: Acute Plan This is a 27-year-old male with pertinent history of insulin-dependent diabetes, mood disorder, gastroesophageal reflux disease who presents to the emergency department for evaluation of abdominal pain, nausea and vomiting. DKA reports medication compliance likely r/t vomiting, no source of infection identified Anion gap closed follows with endocrinology at [facility] on 75/25 60 bid at baseline - will start about 40% of long acting dose converted to lantus as patient is still not able to take po. cover with sliding scale uptitrate insulin as needed ADA diet as tolerated follow POCs Cannabis hyperemesis syndrome likely contributing to his symptoms counseled against usage continue capsaicin cream, IVF, antiemetics Abdominal Pain with nausea/vomiting due to DKA + cannabis hyperemesis lipase 22, LFTs wnl KUB nonobstructive bowel pattern consider imaging if no improvement tomorrow symptomatic support Mood disorder continue sertraline GERD continue protonix Med rec pending DVT prophylaxis: Lovenox 40mg daily Full code Diabetic diet attending - dr. rodriguez requires ongoing inpatient hospitalization for management of hyperemesis /close monitoring of blood sugar Quality Stroke Does the patient have a stroke diagnosis?: No VTE Prior VTE?: No VTE Risk Level:: Medical - low VTE Device Contraindication: Treatment Not Indicated VTE Drug Contraindication: N/A - Med Ordered
--- NOTE | 2022-06-18 13:32 | MHC.CM.PN ---
EMR REVIEWED, PT CONT'S TO C/O NAUSEA AND ABDOMINAL PAIN, PER HOSPITALIST NO PLAN FOR D/C TODAY, ANTIC PT WILL D.C OVER W/E HOME NO SERVICES, GF TO TRANSPORT ON D/C.
--- NOTE | 2022-06-18 14:48 | MHC.CLN ---
NUTRITION INCREASE TO DIABETIC DIET KCALS. DIET CHANGED TO DIABETIC 2000 KCALS. PROVIDES 26.7 KCALS/KG.
[2022-06-18 15:16] VITALS: BP 128/82; PULSE 98; RESP 18; TEMP 36.3; O2SAT 98
[2022-06-18 15:52] LABS: Glucose, Whole Blood 212 mg/dL (60-115)
[2022-06-18] MEDS: 0.9 % Sodium Chloride Flush 3 ML SYRINGE IVFLUSH ×2 (17:01→20:30)
[2022-06-18 20:25] LABS: Glucose, Whole Blood 219 mg/dL (60-115)
[2022-06-19] VITALS: BP 132/74; PULSE 92; RESP 18; TEMP 36.8; O2SAT 99
[2022-06-19 03:27] VITALS: BP 116/54; PULSE 85; RESP 18; TEMP 36.6; O2SAT 93
[2022-06-19] MEDS: Enoxaparin Sodium 40 MG/0.4 ML SYRINGE SUBCUT (05:04)
--- NOTE | 2022-06-19 05:08 | PC.NURSE ---
MD Salas notified that PT is refusing 6 am Omeprazole.
[2022-06-19] MEDS: Lactated Ringers 1,000 ML 100 ML IVCONT (06:24)
[2022-06-19 07:29] VITALS: BP 119/72; PULSE 73; RESP 18; TEMP 35.7; O2SAT 97
[2022-06-19 07:59] LABS: Glucose, Whole Blood 161 mg/dL (60-115)
[2022-06-19] MEDS: Insulin Lispro 100 UNIT/ML 3 ML VIAL SUBCUT (08:12)
[2022-06-19] MEDS: Insulin Glargine,Hum.rec.anlog 100 UNIT/ML 10 ML VIAL 30 UNIT SUBCUT (08:12)
--- NOTE | 2022-06-19 11:04 | PM.DS ---
DS: Providers Provider Date of Service: 06/19/22 Date of admission: 06/17/22 05:28 Date of discharge: 06/19/22 Primary care physician: Papi Olivo MD DS: Diagnosis Discharge Diagnosis (1) Cannabis hyperemesis syndrome concurrent with and due to cannabis abuse: Status: Acute (2) Diabetic keto-acidosis: Status: Acute (3) Diabetic gastroparesis: Status: Acute DS: Summary Hospital Course Hospital Course: 27-year-old male with pertinent history of insulin-dependent diabetes, mood disorder, gastroesophageal reflux disease who presents to the emergency department for evaluation of abdominal pain, nausea and vomiting.? Patient states he started having the symptoms 1 day prior to presentation.? Patient has generalized abdominal pain with nausea and multiple episodes of nonbloody emesis prior to presentation.? States he is compliant with his insulin but does not specify how much he takes every day.? Also smokes marijuana every day.? Has had poor p.o. intake due to nonbloody emesis.? Patient has history of DKA due to insulin noncompliance. Hospital course Was found initially to be in DKA but with IV fluids and IV insulin in the ER gap normalized any was admitted to general medical floor. Over the course next 48 hours he continued to improve with vomiting markedly improved. Sugars back to baseline on basilar and supplemental insulin. Patient is asking for discharge; I believe he is medically acceptable for discharge. He is and PCP appointment within 2 weeks Time Spent with Patient Time attestation: Total time spent providing and/or coordinating discharge services: Discharge coordination time: Greater than 30 minutes Quality: Safe Use of Opioids Does Pt have an Active Cancer Diagnosis on the Problem List?: No Quality: Stroke Does the patient have a stroke diagnosis?: No Physical Exam Vital Signs: Vital Signs: Last Vital Signs Temp 96.3 F L 06/19/22 07:29 Pulse 73 06/19/22 07:29 Resp 18 06/19/22 07:29 BP 119/72 06/19/22 07:29 Pulse Ox 97 06/19/22 07:29 O2 Del Method 06/19/22 07:29 BMI result Body Mass Index 26.6 Const: Other: Awake alert oriented x3 no acute distress Resp: Other: Clear to auscultation bilaterally no rales rhonchi or wheezes Cardio: Other: No S4; positive S1-S2; no S3 murmurs rubs or gallops GI: Other: Soft nontender nondistended normoactive bowel sounds Extrem: Other: No edema bilaterally DS: Data Data Completed and Pending Completed studies during hospitalization [Text1]: Procedures Excision of Stomach, Pylorus, Via Natural or Artificial Opening Endoscopic, Diagnostic (06/22/21) Labs on day of discharge: Laboratory Results - last 24 hr 06/18/22 06/18/22 06/18/22 11:04 15:42 20:21 POC Glucose 179 H 212 H 219 H 06/19/22 07:29 POC Glucose 161 H Discharge Plan Discharge Anticipated Discharge Date/Time: 06/19/22 10:49 Patient Disposition: Home, Self-Care Discharge Diagnosis: Cannabis hyperemesis syndrome Referrals: Papi Olivo MD [Primary Care Provider] - 1 Week Physician,Unknown J [Physician] - Discharge Medications: New ondansetron HCl 8 mg tablet 8 mg PO Q8H PRN (Reason: nausea and vomiting) 5 Days Qty: 15 0RF Continued sertraline 25 mg tablet 25 mg PO DAILY pantoprazole 40 mg tablet,delayed release (DR/EC) 1 tab PO DAILY insulin lispro protamin-lispro 100 unit/mL (75-25) insulin pen 60 unit subcut BID Discharge Orders: Discharge Order (Routine); Ordered 06/19/22 Ordered By: Pool Fitzpatrick Diet: Advance to usual diet Activity on Discharge: As tolerated Stand Alone Forms: Patient Portal Discharge page Care Plan Goals: Resume all pre-hospital medicines Health Concerns: Avoid cannabis; continued use will eventually produce the same results Plan of Treatment: Follow with PCP as scheduled Assessment: See discharge summary Patient Instructions: Gastroparesis (ED)
[2022-06-19 11:15] VITALS: BP 109/67; PULSE 78; RESP 18; TEMP 36.4; O2SAT 98
[2022-06-19 11:21] LABS: Glucose, Whole Blood 83 mg/dL (60-115)
--- NOTE | 2022-06-19 11:53 | MHC.CM.PN ---
PT WILL DC HOME TODAY WITH NO SERVICES PT TO ARRANGE TRANSPORT
[2022-06-19 13:53] LABS: Glucose, Whole Blood 82 mg/dL (60-115)
== END 2022-06-19 13:59 | disposition home or self-care (01) | DRG 420 ==
LOC: HO.ED 06-17 03:51 → HO.EDOVER 06-17 05:46 → HO.S3 06-17 15:04
PROVIDERS: Emergency Medicine; Physician Assistant Medical; Admitting Provider Student in an Organized Health Care Education/Training Program; Emergency Provider Emergency Medicine; PCP Internal Medicine; Visit Provider Hospitalist
DX: E11.10 Type 2 diabetes mellitus with ketoacidosis without coma (principal); E86.0 Dehydration; E10.43 Type 1 diabetes mellitus with diabetic autonomic (poly)neuropathy; F12.10 Cannabis abuse, uncomplicated; K21.9 Gastro-esophageal reflux disease without esophagitis; K31.84 Gastroparesis; R11.2 Nausea with vomiting, unspecified; Z20.822 Contact with and (suspected) exposure to COVID-19; Z79.899 Other long term (current) drug therapy
CPT/HCPCS: 36415; 74018; 80048; 80076; 80307; 81001; 81003; 82009; 82803; 82947; 83036; 83605; 83690; 85025; 87635; 93005; 99285; J1650; J2270; J2405; J2550

== ENCOUNTER 2022-07-11 19:52 | Emergency (ER) | payer OTHER, SELFPAY ==
[2022-07-11 19:56] VITALS: BP 153/110; PULSE 112; RESP 17; TEMP 37.1; O2SAT 100; BMI 26.6
--- NOTE | 2022-07-11 19:56 | ED_ITS ---
HPI - Abdominal Pain General Chief Complaint: General Medical <Anjana Claros NP - Last Filed: 07/11/22 20:00> Stated Complaint: dehydration, vomiting, not eating- flu? <Anjana Claros NP - Last Filed: 07/11/22 20:00> Time Seen by Provider: 07/11/22 21:09 <Anjana Claros NP - Last Filed: 07/11/22 20:00> Source: patient <Carlos Nagy MD - Last Filed: 07/11/22 23:08> Mode of arrival: ambulatory <Carlos Nagy MD - Last Filed: 07/11/22 23:08> Limitations: no limitations <Carlos Nagy MD - Last Filed: 07/11/22 23:08> History of Present Illness HPI narrative: 27-year-old male who presents emergency department for evaluation of viral-like illness x3 days. Patient states that he has had nausea and vomiting. He states that he has vomiting 3 to 4 times a day. He is able to drink water and vitamin water he has not been able to eat food. He states that had subjective fever and chills. He has had rhinorrhea, sore throat and a nonpro ductive cough. He denied chest pain, shortness of breath or dyspnea on exertion. He complains of sharp, abdominal pain that started 1-2 hours prior to coming to emergency department. Points to his epigastric area when asked to localize the pain. Pain is a sharp pain which is 710 at its worst. Patient denied frequency or dysuria. He had no diarrhea he denied dark tarry stools or bloody stools. Patient states that he is a diabetic and he has had DKA in the past any often gets abdominal pain with his DKA. He also states that his mother has been ill with a viral-like illness as well. <Carlos Nagy MD - Last Filed: 07/11/22 23:08> MD elicited complaint: abdominal pain and other (Nausea and vomiting) <Carlos Nagy MD - Last Filed: 07/11/22 23:08> Pertinent past history: other (DKA) <Carlos Nagy MD - Last Filed: 07/11/22 23:08> Onset (ago): day(s) (Nausea vomiting 3 days abdominal pain 2 hours) <Carlos Nagy MD - Last Filed: 07/11/22 23:08> Pain Consistency: constant <Carlos Nagy MD - Last Filed: 07/11/22 23:08> Location: epigastric <Carlos Nagy MD - Last Filed: 07/11/22 23:08> Severity: moderate <Carlos Nagy MD - Last Filed: 07/11/22 23:08> Pain scale (0-10): 7 <Carlos Nagy MD - Last Filed: 07/11/22 23:08> Quality: sharp <Carlos Nagy MD - Last Filed: 07/11/22 23:08> Radiation: none <Carlos Nagy MD - Last Filed: 07/11/22 23:08> Migration to: no migration <Carlos Nagy MD - Last Filed: 07/11/22 23:08> Exacerbating factors: eating <Carlos Nagy MD - Last Filed: 07/11/22 23:08> Relieving factors: nothing <Carlos Nagy MD - Last Filed: 07/11/22 23:08> Associated symptoms: nausea, vomiting, fever, chills and other (Rhinorrhea, sore throat, cough) <Carlos Nagy MD - Last Filed: 07/11/22 23:08> Related Data Home Medications: Home Medications Medication Instructions Recorded Confirmed sertraline 25 mg tablet 25 mg PO DAILY 12/28/21 06/17/22 pantoprazole 40 mg tablet,delayed 1 tab PO DAILY 03/15/22 06/17/22 release insulin lispro protamine-lispro 60 unit subcut BID 04/30/22 06/17/22 100 unit/mL (75-25) subcutaneous pen Previous Rx's Medication Instructions Recorded ondansetron HCl 8 mg tablet 8 mg PO Q8H PRN nausea and 06/19/22 vomiting 5 days #15 tabs ondansetron 8 mg disintegrating 8 mg PO Q8H PRN nausea and 07/11/22 tablet vomiting 5 days #15 tabs <Anjana Claros NP - Last Filed: 07/11/22 20:00> Allergies/Adverse Reactions: Allergies Allergy/AdvReac Type Severity Reaction Status Date / Time passion fruit [PASSION FRUIT] Allergy Unknown UNK Verified 07/11/22 19:56 <Anjana Claros NP - Last Filed: 07/11/22 20:00> Review of Systems Review of Systems Yes all other systems are reviewed and are negative <Carlos Nagy MD - Last Filed: 07/11/22 23:08> [facility] Past Medical History [facility] Narrative: Past medical history: Reviewed below. Past surgical history: None. Social history: He denies tobacco, alcohol use. He does smoke marijuana daily. <Carlos Nagy MD - Last Filed: 07/11/22 23:08> Medical History: Medical History Cyclical vomiting Diabetes Diabetic gastroparesis Diabetic keto-acidosis Esophageal ulcer Gastroparesis Leukocytosis Noncompliance with medication regimen Persistent hyperactive cannabis intoxication delirium <Anjana Claros NP - Last Filed: 07/11/22 20:00> Surgical History: Surgical History No pertinent past surgical history <Anjana Claros NP - Last Filed: 07/11/22 20:00> Family History Family History: Family History Other No family history of coronary artery disease <Anjana Claros NP - Last Filed: 07/11/22 20:00> Social History Social History: Social History Household Members: None Housing: Apartment Do you presently have visiting nurse or other home services: No Alcohol intake: never Patient Tobacco Use Status: Never used Tobacco Substance Use Type: Marijuana Advance Directives: Yes Advance Directives on File: Yes Advance Directives Date on File: 01/22/21 service: No Current occupational status: employed <Anjana Claros NP - Last Filed: 07/11/22 20:00> Physical Exam ED Vital Signs: Vital Signs - 24 hr 07/11/22 19:56 Temperature 98.7 F Pulse Rate 112 H Respiratory Rate 17 Blood Pressure 153/110 H Pulse Oximetry 100 Oxygen Delivery Method Room Air BMI result Body Mass Index 26.6 <Anjana Claros NP - Last Filed: 07/11/22 20:00> Vital Signs - 24 hr 07/11/22 19:56 Temperature 98.7 F Pulse Rate 112 H Respiratory Rate 17 Blood Pressure 153/110 H Pulse Oximetry 100 Oxygen Delivery Method Room Air BMI result Body Mass Index 26.6 <Carlos Nagy MD - Last Filed: 07/11/22 23:08> Const Other: Awake, alert, male patient, very pleasant cooperative, does have a strong ketotic odor to his breath, answers questions appropriately <Carlos Nagy MD - Last Filed: 07/11/22 23:08> HENMT Head: Yes normal to inspection, Yes normocephalic and Yes atraumatic <Carlos Nagy MD - Last Filed: 07/11/22 23:08> Ears: external ears normal <Carlos Nagy MD - Last Filed: 07/11/22 23:08> General nose exam: Normal external nose present <Carlos Nagy MD - Last Filed: 07/11/22 23:08> Face and sinus: Yes normal facial exam <Carlos Nagy MD - Last Filed: 07/11/22 23:08> Mouth: Normal oral and palatal mucosa present <Carlos Nagy MD - Last Filed: 07/11/22 23:08> Throat: Yes posterior oropharynx normal <Carlos Nagy MD - Last Filed: 07/11/22 23:08> Eyes General: appearance normal, both eyes and all related structures <Carlos Nagy MD - Last Filed: 07/11/22 23:08> Pupils: Equal, round and reactive pupils present <Carlos Nagy MD - Last Filed: 07/11/22 23:08> Neck Neck: Yes normal visual inspection, Yes no lymphadenopathy, Yes trachea midline and Yes supple <Carlos Nagy MD - Last Filed: 07/11/22 23:08> Chest Chest palpation & inspection: normal inspection of the chest and normal palpation of entire chest wall <Carlos Nagy MD - Last Filed: 07/11/22 23:08> Resp Effort & Inspection: normal respiratory effort and able to speak in complete sentences <Carlos Nagy MD - Last Filed: 07/11/22 23:08> Auscultation: clear to auscultation bilaterally <Carlos Nagy MD - Last Filed: 07/11/22 23:08> Cardio Rate: regular rate <MD Priyank Rowell Last Filed: 07/11/22 23:08> Rhythm: regular rhythm <MD Priyank Rowell Last Filed: 07/11/22 23:08> Heart sounds: S1 normal heart sound present, S2 normal heart sound present and no murmurs <MD Priyank Rowell Last Filed: 07/11/22 23:08> GI Inspection: Yes normal to inspection <MD Priyank Rowell Last Filed: 07/11/22 23:08> Palpation (GI): Soft to palpation, Tenderness to palpation present (GI) in the epigastrum (Moderate) and no guarding <MD Priyank Rowell Last Filed: 07/11/22 23:08> Auscultation: normal bowel sounds <Carlos Nagy MD - Last Filed: 07/11/22 23:08> General: Yes no CVA tenderness <MD Priyank Rowell Last Filed: 07/11/22 23:08> Back/Spine/Pelvis Back: no CVA tenderness <MD Priyank Rowell Last Filed: 07/11/22 23:08> Skin General skin exam: no rashes or lesions noted <MD Priyank Rowell Last Filed: 07/11/22 23:08> Neuro Cranial nerves: Yes CN's II-XII intact bilaterally and Yes Equal, round and reactive pu pils present <Carlos Nagy MD - Last Filed: 07/11/22 23:08> Cognition (Neuro): normal cognition <Carlos Nagy MD - Last Filed: 07/11/22 23:08> Motor exam (neuro): 5/5 motor strength present throughout <Carlos Nagy MD - Last Filed: 07/11/22 23:08> Extrem General: Yes normal to inspection <Carlos Nagy MD - Last Filed: 07/11/22 23:08> Psych Appearance: grossly normal <Carlos Nagy MD - Last Filed: 07/11/22 23:08> Speech and movement: Normal speech and movement present <Carlos Nagy MD - Last Filed: 07/11/22 23:08> Affect: normal affect <Carlos Nagy MD - Last Filed: 07/11/22 23:08> Attitude: cooperative <Carlos Nagy MD - Last Filed: 07/11/22 23:08> Thought process: Normal thought process present <Carlos Nagy MD - Last Filed: 11/27 23:08> Thought content: Normal thought content present <Carlos Nagy MD - Last Filed: 07/11/22 23:08> Course Course Course Narrative: This is rapid medical exam. Deferred HPI, ROS, PE to primary provider. 27 yo male with past medical history of insulin-dependent diabetes, diabetic gastroparesis, recurrent DKA here with vomiting x 2-3 days, feels dehydrated. Mom has the flu at home. BS 280's before coming in so doesnt feel like when he is in DKA. Will check labs, UA, covid, flu, rsv testing. VSS <Anjana Claros NP - Last Filed: 07/11/22 20:00> This is rapid medical exam. Deferred HPI, ROS, PE to primary provider. 27 yo male with past medical history of insulin-dependent diabetes, diabetic gastroparesis, recurrent DKA here with vomiting x 2-3 days, feels dehydrated. Mom has the flu at home. BS 280's before coming in so doesnt feel like when he is in DKA. Will check labs, UA, covid, flu, rsv testing. VSS 212: Course: 27-year-old male with a history of diabetes and DKA who presents emergency department for evaluation of 3 days of viral-like illness with fever, chills, rhinorrhea, sore throat, nonproductive cough, nausea and vomiting (3-4 episodes per day), able to drink fluid but not eat food. Patient also developed epigastric pain several hours prior to coming to the emergency department. Initial vital signs revealed an elevated blood pressure of 153/110 and elevated pulse of 112 otherwise unremarkable. Physical examination did reveal a strong odor of ketones to his breath as well as epigastric tenderness. Laboratory evaluation: WBC elevated 13,100. Sodium and chloride low 122 an 85, elevated BUN and creatinine 25 and 1.55-this is above his baseline. Elevated glucose of 332. Elevated total bilirubin of 1.5 which is mainly indirect bilirubin 1.0-consistent with viral illness. COVID-19 and RSV were negative. Positive for influenza A. At this time I think that the patient has starvation ketosis and dehydration I do not think that he has DKA specially with a normal CO2 23. I ordered 2 L of lactated Ringer's IV, insulin 5 units IV, morphine 4 mg IV for his pain and Zofran 4 mg IV for his nausea and vomiting. Will follow his point of care glucose. 2302: Patient is feeling better after the above treatment, he did require 2nd dose of morphine 4 mg IV for his abdominal pain. The patient's repeat point of care glucose improved to 151. The patient will be discharged home and started on Zofran 8 mg ODT every 8 hours as needed for nausea and vomiting. Patient has been sick for 72 hours and I do not think that Tamiflu is indicated this time. The patient was given printed and verbal instructions and discharged home. <Carlos Nagy MD - Last Filed: 07/11/22 23:08> Medications Administered Discontinued Medications Generic Name Dose Route Start Last Admin Trade Name Freq PRN Reason Stop Dose Admin Lactated Ringer's 1,000 mls @ 999 mls/hr 07/11/22 21:30 07/11/22 21:42 Lr IV 07/11/22 22:30 999 mls/hr .Q1H1M DESTINY Administration Lactated Ringer's 1,000 mls @ 999 mls/hr 07/11/22 21:30 07/11/22 21:43 Lr IV 07/11/22 22:30 999 mls/hr .Q1H1M DESTINY Administration Insulin Human Regular 5 unit 07/11/22 21:20 07/11/22 21:44 Insulin Regular, Human 100 Unit/Ml 3 Ml Vial IVPUSH 07/11/22 21:21 5 unit ONCE ONE Administration Morphine Sulfate 4 mg 07/11/22 21:20 07/11/22 21:44 Morphine Sulfate 4 Mg/Ml Cartridge IVPUSH 07/11/22 21:21 4 mg ONCE STA Administration Protocol Ondansetron HCl 4 mg 07/11/22 19:59 07/11/22 20:15 Ondansetron Odt 4 Mg Tab.Rapdis TRANSLINGU 07/11/22 20:00 4 mg ONCE ONE Administration Ondansetron HCl 4 mg 07/11/22 21:20 07/11/22 21:43 Ondansetron Hcl 4 Mg/2 Ml Vial IVPUSH 07/11/22 21:21 4 mg ONCE ONE Administration <Anjana Claros NP - Last Filed: 07/11/22 20:00> Medications Administered Discontinued Medications Generic Name Dose Route Start Last Admin Trade Name Harpreetq PRN Reason Stop Dose Admin Lactated Ringer's 1,000 mls @ 999 mls/hr 07/11/22 21:30 07/11/22 21:42 Lr IV 07/11/22 22:30 999 mls/hr .Q1H1M DESTINY Administration Lactated Ringer's 1,000 mls @ 999 mls/hr 07/11/22 21:30 07/11/22 21:43 Lr IV 07/11/22 22:30 999 mls/hr .Q1H1M DESTINY Administration Insulin Human Regular 5 unit 07/11/22 21:20 07/11/22 21:44 Insulin Regular, Human 100 Unit/Ml 3 Ml Vial IVPUSH 07/11/22 21:21 5 unit ONCE ONE Administration Morphine Sulfate 4 mg 07/11/22 21:20 07/11/22 21:44 Morphine Sulfate 4 Mg/Ml Cartridge IVPUSH 07/11/22 21:21 4 mg ONCE STA Administration Protocol Ondansetron HCl 4 mg 07/11/22 19:59 07/11/22 20:15 Ondansetron Odt 4 Mg Tab.Rapdis TRANSLINGU 07/11/22 20:00 4 mg ONCE ONE Administration Ondansetron HCl 4 mg 07/11/22 21:20 07/11/22 21:43 Ondansetron Hcl 4 Mg/2 Ml Vial IVPUSH 07/11/22 21:21 4 mg ONCE ONE Administration <Carlos Nagy MD - Last Filed: 07/11/22 23:08> MDM - Abdominal Pain Lab Data Result diagrams: : 07/11/22 20:09 07/11/22 20:09 <Anjana Claros NP - Last Filed: 07/11/22 20:00> Labs: Lab Results 07/11/22 07/11/22 07/11/22 Range/Units 20:09 20:09 20:33 WBC 13.1 H (4.8-10.8) X10*3/uL RBC 5.96 H D (4.60-5.80) X10*6/uL Hgb 17.0 D (14.0-18.0) g/dl Hct 48.6 (42.0-52.0) % MCV 81.5 (80.0-98.0) fL MCH 28.5 (27.0-33.0) pg MCHC 35.0 (31.0-36.0) g/dl RDW 12.0 (11.0-16.0) % Plt Count 352 (160-400) X10*3/uL MPV 9.7 (9.4-12.4) fL Immature Gran % (Auto) 0.4 (0.0-0.4) % Neut % (Auto) 80.7 H (45-73) % Lymph % (Auto) 7.2 L (20-40) % [place] % (Auto) 11.3 H (2-11) % Eos % (Auto) 0.1 (0-4) % Baso % (Auto) 0.3 (0-2) % Lymph # (Auto) 0.9 L (1.2-4.9) X10*3/uL [place] # (Auto) 1.5 H (0.1-1.2) X10*3/uL Eos # (Auto) 0.0 (0.0-0.4) X10*3/uL Baso # (Auto) 0.0 (0.0-0.2) X10*3/uL Abs Immat Gran (auto) 0.05 H (0.00-0.03) X10*3/uL Absolute Neuts (auto) 10.6 H (2.0-8.3) x10*3/uL Absolute Nucleated RBC 0.000 (0.0-0.012) X10*3/uL Nucleated RBC % (auto) 0.0 (0.0-0.2) /100WBC Sodium 122 L (135-145) mmol/L Potassium 4.1 (3.3-5.1) mmol/L Chloride 85 L (96-108) mmol/L Carbon Dioxide 23 (22-29) mmol/L Anion Gap 18 (12-20) BUN 25 H (9-16) mg/dL Creatinine 1.55 H (0.5-1.4) mg/dL Estim Creat Clear Calc 65.1 Estimated GFR 54 POC Glucose (60-115) mg/dL Random Glucose 332 H (60-115) mg/dL Calcium 9.9 (8.4-10.2) mg/dL Magnesium 2.6 (1.6-2.6) mg/dL Total Bilirubin 1.5 H (0.0-1.0) mg/dL Direct Bilirubin 0.4 (0.0-0.5) mg/dL AST 10 (5-37) U/L ALT 11 (0-40) U/L Alkaline Phosphatase 85 (39-117) U/L Total Protein 8.1 H (6.5-8.0) g/dL Albumin 4.9 (3.5-5.0) g/dL Influenza Type A (PCR) POSITIVE A (Negative) Influenza Type B (PCR) NEGATIVE (Negative) RSV RNA Qual (PCR) NEGATIVE (Negative) SARS-CoV-2 RNA (RT-PCR) NEGATIVE (Negative) 07/11/22 07/11/22 Range/Units 20:39 22:24 WBC (4.8-10.8) X10*3/uL RBC (4.60-5.80) X10*6/uL Hgb (14.0-18.0) g/dl Hct (42.0-52.0) % MCV (80.0-98.0) fL MCH (27.0-33.0) pg MCHC (31.0-36.0) g/dl RDW (11.0-16.0) % Plt Count (160-400) X10*3/uL MPV (9.4-12.4) fL Immature Gran % (Auto) (0.0-0.4) % Neut % (Auto) (45-73) % Lymph % (Auto) (20-40) % [place] % (Auto) (2-11) % Eos % (Auto) (0-4) % Baso % (Auto) (0-2) % Lymph # (Auto) (1.2-4.9) X10*3/uL [place] # (Auto) (0.1-1.2) X10*3/uL Eos # (Auto) (0.0-0.4) X10*3/uL Baso # (Auto) (0.0-0.2) X10*3/uL Abs Immat Gran (auto) (0.00-0.03) X10*3/uL Absolute Neuts (auto) (2.0-8.3) x10*3/uL Absolute Nucleated RBC (0.0-0.012) X10*3/uL Nucleated RBC % (auto) (0.0-0.2) /100WBC Sodium (135-145) mmol/L Potassium (3.3-5.1) mmol/L Chloride (96-108) mmol/L Carbon Dioxide (22-29) mmol/L Anion Gap (12-20) BUN (9-16) mg/dL Creatinine (0.5-1.4) mg/dL Estim Creat Clear Calc Estimated GFR POC Glucose 315 H 151 H (60-115) mg/dL Random Glucose (60-115) mg/dL Calcium (8.4-10.2) mg/dL Magnesium (1.6-2.6) mg/dL Total Bilirubin (0.0-1.0) mg/dL Direct Bilirubin (0.0-0.5) mg/dL AST (5-37) U/L ALT (0-40) U/L Alkaline Phosphatase (39-117) U/L Total Protein (6.5-8.0) g/dL Albumin (3.5-5.0) g/dL Influenza Type A (PCR) (Negative) Influenza Type B (PCR) (Negative) RSV RNA Qual (PCR) (Negative) SARS-CoV-2 RNA (RT-PCR) (Negative) <Anjana Claros, [employer] - Last Filed: 07/11/22 20:00> Lab Results 07/11/22 07/11/22 07/11/22 Range/Units 20:09 20:09 20:33 WBC 13.1 H (4.8-10.8) X10*3/uL RBC 5.96 H D (4.60-5.80) X10*6/uL Hgb 17.0 D (14.0-18.0) g/dl Hct 48.6 (42.0-52.0) % MCV 81.5 (80.0-98.0) fL MCH 28.5 (27.0-33.0) pg MCHC 35.0 (31.0-36.0) g/dl RDW 12.0 (11.0-16.0) % Plt Count 352 (160-400) X10*3/uL MPV 9.7 (9.4-12.4) fL Immature Gran % (Auto) 0.4 (0.0-0.4) % Neut % (Auto) 80.7 H (45-73) % Lymph % (Auto) 7.2 L (20-40) % [place] % (Auto) 11.3 H (2-11) % Eos % (Auto) 0.1 (0-4) % Baso % (Auto) 0.3 (0-2) % Lymph # (Auto) 0.9 L (1.2-4.9) X10*3/uL [place] # (Auto) 1.5 H (0.1-1.2) X10*3/uL Eos # (Auto) 0.0 (0.0-0.4) X10*3/uL Baso # (Auto) 0.0 (0.0-0.2) X10*3/uL Abs Immat Gran (auto) 0.05 H (0.00-0.03) X10*3/uL Absolute Neuts (auto) 10.6 H (2.0-8.3) x10*3/uL Absolute Nucleated RBC 0.000 (0.0-0.012) X10*3/uL Nucleated RBC % (auto) 0.0 (0.0-0.2) /100WBC Sodium 122 L (135-145) mmol/L Potassium 4.1 (3.3-5.1) mmol/L Chloride 85 L (96-108) mmol/L Carbon Dioxide 23 (22-29) mmol/L Anion Gap 18 (12-20) BUN 25 H (9-16) mg/dL Creatinine 1.55 H (0.5-1.4) mg/dL Estim Creat Clear Calc 65.1 Estimated GFR 54 POC Glucose (60-115) mg/dL Random Glucose 332 H (60-115) mg/dL Calcium 9.9 (8.4-10.2) mg/dL Magnesium 2.6 (1.6-2.6) mg/dL Total Bilirubin 1.5 H (0.0-1.0) mg/dL Direct Bilirubin 0.4 (0.0-0.5) mg/dL AST 10 (5-37) U/L ALT 11 (0-40) U/L Alkaline Phosphatase 85 (39-117) U/L Total Protein 8.1 H (6.5-8.0) g/dL Albumin 4.9 (3.5-5.0) g/dL Influenza Type A (PCR) POSITIVE A (Negative) Influenza Type B (PCR) NEGATIVE (Negative) RSV RNA Qual (PCR) NEGATIVE (Negative) SARS-CoV-2 RNA (RT-PCR) NEGATIVE (Negative) 07/11/22 07/11/22 Range/Units 20:39 22:24 WBC (4.8-10.8) X10*3/uL RBC (4.60-5.80) X10*6/uL Hgb (14.0-18.0) g/dl Hct (42.0-52.0) % MCV (80.0-98.0) fL MCH (27.0-33.0) pg MCHC (31.0-36.0) g/dl RDW (11.0-16.0) % Plt Count (160-400) X10*3/uL MPV (9.4-12.4) fL Immature Gran % (Auto) (0.0-0.4) % Neut % (Auto) (45-73) % Lymph % (Auto) (20-40) % [place] % (Auto) (2-11) % Eos % (Auto) (0-4) % Baso % (Auto) (0-2) % Lymph # (Auto) (1.2-4.9) X10*3/uL [place] # (Auto) (0.1-1.2) X10*3/uL Eos # (Auto) (0.0-0.4) X10*3/uL Baso # (Auto) (0.0-0.2) X10*3/uL Abs Immat Gran (auto) (0.00-0.03) X10*3/uL Absolute Neuts (auto) (2.0-8.3) x10*3/uL Absolute Nucleated RBC (0.0-0.012) X10*3/uL Nucleated RBC % (auto) (0.0-0.2) /100WBC Sodium (135-145) mmol/L Potassium (3.3-5.1) mmol/L Chloride (96-108) mmol/L Carbon Dioxide (22-29) mmol/L Anion Gap (12-20) BUN (9-16) mg/dL Creatinine (0.5-1.4) mg/dL Estim Creat Clear Calc Estimated GFR POC Glucose 315 H 151 H (60-115) mg/dL Random Glucose (60-115) mg/dL Calcium (8.4-10.2) mg/dL Magnesium (1.6-2.6) mg/dL Total Bilirubin (0.0-1.0) mg/dL Direct Bilirubin (0.0-0.5) mg/dL AST (5-37) U/L ALT (0-40) U/L Alkaline Phosphatase (39-117) U/L Total Protein (6.5-8.0) g/dL Albumin (3.5-5.0) g/dL Influenza Type A (PCR) (Negative) Influenza Type B (PCR) (Negative) RSV RNA Qual (PCR) (Negative) SARS-CoV-2 RNA (RT-PCR) (Negative) <Carlos Nagy MD - Last Filed: 07/11/22 23:08> Discharge Plan Discharge Clinical Impression: Influenza A, Acute dehydration, Ketosis, Acute hyperglycemia Abdominal pain Qualifiers: Abdominal location: epigastric Qualified Code(s): R10.13 - Epigastric pain <Anjana Claros NP - Last Filed: 07/11/22 20:00> Patient Disposition: Home, Self-Care <Anjana Claros NP - Last Filed: 07/11/22 20:00> Instructions: Influenza (ED) <Anjana Claros NP - Last Filed: 07/11/22 20:00> Additional Instructions: Your COVID-19 and RSV tests were negative. Your influenza test was positive for Influenza A. Your blood work was consistent with dehydration and you do have ketosis but I believe that this is secondary to not eating and not caused by diabetic ketoacidosis. Take ibuprofen 200 mg pills, 3 pills every 6 hours as needed for pain or fever. Take Tylenol (acetaminophen) 500 mg pills, 2 pills every 4 to 6 hours as needed for pain or fever. Take Zofran ODT 8mg pills, 1 pill dissolved in your mouth every 8 hours as needed for nausea and vomiting. Follow-up with your doctor in 2 days. Please return to the emergency department if your symptoms get worse or if you develop any symptoms that are concerning to you. It is important that you drink fluid to stay hydrated and you need to try to eat food to prevent ketosis. <Anjana Claros NP - Last Filed: 07/11/22 20:00> Prescriptions: New ondansetron 8 mg tablet,disintegrating 8 mg PO Q8H PRN (Reason: nausea and vomiting) 5 Days Qty: 15 0RF No Action sertraline 25 mg tablet 25 mg PO DAILY pantoprazole 40 mg tablet,delayed release (DR/EC) 1 tab PO DAILY insulin lispro protamin-lispro 100 unit/mL (75-25) insulin pen 60 unit subcut BID ondansetron HCl 8 mg tablet 8 mg PO Q8H PRN (Reason: nausea and vomiting) 5 Days Qty: 15 0RF <Anjana Claros NP - Last Filed: 07/11/22 20:00>
[2022-07-11 20:14] LABS: MANUAL DIFF FLAG NO
[2022-07-11] MEDS: Ondansetron ODT 4 MG TAB.RAPDIS TRANSLINGU (20:15)
[2022-07-11 20:18] LABS: Basophils Percent Auto 0.3 % (0-2); Eosinophils Percent Auto 0.1 % (0-4); Hematocrit 48.6 % (42.0-52.0); Imm Gran Abs Auto 0.05 X10*3/uL (0.00-0.03); Imm Gran Pct Auto 0.4 % (0.0-0.4); Lymphocytes Absolute Auto 0.9 X10*3/uL (1.2-4.9); Lymphocytes Percent Auto 7.2 % (20-40); Mean Corpuscular Hemoglobin 28.5 pg (27.0-33.0); Mean Corpuscular Volume 81.5 fL (80.0-98.0); Mean Platelet Volume 9.7 fL (9.4-12.4); Monocytes Absolute Auto 1.5 X10*3/uL (0.1-1.2); Monocytes Percent Auto 11.3 % (2-11); Neutrophils Absolute Auto 10.6 x10*3/uL (2.0-8.3); Neutrophils Percent Auto 80.7 % (45-73); Platelet Count 352 X10*3/uL (160-400); Red Blood Count 5.96 X10*6/uL (4.60-5.80); White Blood Count 13.1 X10*3/uL (4.8-10.8)
[2022-07-11 20:33] LABS: Alanine Aminotransferase 11 U/L (0-40); Albumin Level 4.9 g/dL (3.5-5.0); Alkaline Phosphatase 85 U/L (39-117); Anion Gap 18 (12-20); Aspartate Amino Transferase 10 U/L (5-37); Bilirubin Direct 0.4 mg/dL (0.0-0.5); Bilirubin Total 1.5 mg/dL (0.0-1.0); Blood Urea Nitrogen 25 mg/dL (9-16); Calcium 9.9 mg/dL (8.4-10.2); Carbon Dioxide 23 mmol/L (22-29); Chloride 85 mmol/L (96-108); Creatinine Clr Calc Pharmacy 65.1; Estimated Glomerular Filt Rate 54; Glucose Random 332 mg/dL (60-115); Magnesium 2.6 mg/dL (1.6-2.6); Potassium 4.1 mmol/L (3.3-5.1); Sodium 122 mmol/L (135-145); Total Protein 8.1 g/dL (6.5-8.0)
[2022-07-11 20:43] LABS: Glucose, Whole Blood 315 mg/dL (60-115)
[2022-07-11 21:18] LABS: Influenza A PCR POSITIVE (Negative); Influenza B PCR NEGATIVE (Negative); Resp Syncy Virus RNA Qual PCR NEGATIVE (Negative); SARS COV2 PCR INHOUSE NEGATIVE (Negative)
[2022-07-11] MEDS: Lactated Ringers 1,000 ML 999 ML IV ×2 (21:42→21:43)
[2022-07-11] MEDS: ondansetron HCL 4 MG/2 ML VIAL IVPUSH (21:43)
[2022-07-11] MEDS: Morphine Sulfate 4 MG/ML CARTRIDGE IVPUSH ×2 (21:44→23:09)
[2022-07-11] MEDS: Insulin Regular, Human 100 UNIT/ML 3 ML VIAL IVPUSH (21:44)
[2022-07-11 22:28] LABS: Glucose, Whole Blood 151 mg/dL (60-115)
[2022-07-11 23:09] VITALS: RESP 16
== END 2022-07-11 23:52 | disposition home or self-care (01) ==
PROVIDERS: Nurse Practitioner Family; Emergency Provider Emergency Medicine Emergency Medical Services
DX: J10.1 Influenza due to other identified influenza virus with other respiratory manifestations (principal); E86.0 Dehydration; R11.2 Nausea with vomiting, unspecified; E88.89 Other specified metabolic disorders; E11.65 Type 2 diabetes mellitus with hyperglycemia; Z20.822 Contact with and (suspected) exposure to COVID-19; Z79.899 Other long term (current) drug therapy
CPT/HCPCS: 0241U; 36415; 80048; 80076; 82947; 83735; 85025; 96365; 96366; 96376; 99283; 99284; J2270; J2405

== ENCOUNTER 2022-08-03 14:04 | Emergency (ER) | payer OTHER, SELFPAY ==
[2022-08-03 16:31] VITALS: BP 148/85; PULSE 118; RESP 18; TEMP 36.6; O2SAT 98; BMI 26.6
--- NOTE | 2022-08-03 16:32 | ED.GENADULT ---
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 The patient was diagnosed with the flu 1 week prior. He states he is feeling better but he still has an occasional cough and headache. He states he has not give himself insulin since he started vomiting. He has been able to drink some fluid but not eat any food. He denied fever, chills, rhinorrhea, sore throat,, shortness of breath or dyspnea on exertion. patient has had DKA in the past but he states this feels different. He is complaining of lower abdominal pain which she describes as a constant, sharp pain which is 8/10 at its worst, the pain is worse with vomiting. <Carlos Nagy MD - Last Filed: 08/03/22 23:31> Related Data Home medications: Home Medications Medication Instructions Recorded Confirmed sertraline 25 mg tablet 25 mg PO DAILY 12/28/21 06/17/22 pantoprazole 40 mg tablet,delayed 1 tab PO DAILY 03/15/22 06/17/22 release insulin lispro protamine-lispro 60 unit subcut BID 04/30/22 06/17/22 100 unit/mL (75-25) subcutaneous pen Previous Rx's Medication Instructions Recorded ondansetron HCl 8 mg tablet 8 mg PO Q8H PRN nausea and 06/19/22 vomiting 5 days #15 tabs ondansetron 8 mg disintegrating 8 mg PO Q8H PRN nausea and 07/11/22 tablet vomiting 5 days #15 tabs promethazine 25 mg rectal 25 mg FL Q6H PRN nausea and 08/03/22 suppository (Promethegan) vomiting #20 ea <ROSAURA Palacios - Last Filed: 08/03/22 16:34> Allergies/adverse reactions: Allergies Allergy/AdvReac Type Severity Reaction Status Date / Time passion fruit [PASSION FRUIT] Allergy Unknown UNK Verified 08/03/22 16:35 <ROSAURA Palacios - Last Filed: 08/03/22 16:34> Review of Systems Review of Systems: Yes all other systems are reviewed and are negative <Carlos Nagy MD - Last Filed: 08/03/22 23:31> [facility] Past Medical History [facility] Narrative: Social history: He denies tobacco use. He denies alcohol use. He smokes marijuana 4 to 5 times a day, daily <Carlos Nagy MD - Last Filed: 08/03/22 23:31> Medical History: Medical History Cyclical vomiting Diabetes Diabetic gastroparesis Diabetic keto-acidosis Esophageal ulcer Gastroparesis Leukocytosis Noncompliance with medication regimen Persistent hyperactive cannabis intoxication delirium <ROSAURA Palacios - Last Filed: 08/03/22 16:34> Surgical History: Surgical History No pertinent past surgical history <ROSAURA Palacios - Last Filed: 08/03/22 16:34> Family History Family History: Family History Other No family history of coronary artery disease <ROSAURA Palacios - Last Filed: 08/03/22 16:34> Social History Social History: Social History Household Members: None Housing: Apartment Do you presently have visiting nurse or other home services: No Alcohol intake: never Patient Tobacco Use Status: Never used Tobacco Substance Use Type: Marijuana Advance Directives: Yes Advance Directives on File: Yes Advance Directives Date on File: 01/22/21 service: No Current occupational status: employed <ROSAURA Palacios - Last Filed: 08/03/22 16:34> Physical Exam ED Vital Signs: Vital Signs - 24 hr 08/03/22 16:31 08/03/22 21:17 08/03/22 22:00 Temperature 97.9 F 97.2 F 97.8 F Pulse Rate 118 H 82 72 Respiratory Rate 18 16 16 Blood Pressure 148/85 H 130/74 136/64 Pulse Oximetry 98 97 96 Oxygen Delivery Method Room Air Room Air Room Air BMI result Body Mass Index 26.6 <ROSUARA Palacios - Last Filed: 08/03/22 16:34> Vital Signs - 24 hr 08/03/22 16:31 08/03/22 21:17 08/03/22 22:00 Temperature 97.9 F 97.2 F 97.8 F Pulse Rate 118 H 82 72 Respiratory Rate 18 16 16 Blood Pressure 148/85 H 130/74 136/64 Pulse Oximetry 98 97 96 Oxygen Delivery Method Room Air Room Air Room Air BMI result Body Mass Index 26.6 <Carlos Nagy MD - Last Filed: 08/03/22 23:31> Const Other: awake, alert, male patient, very pleasant cooperative, does not appear to be in distress, does of strong ketotic odor to his breath <Carlos Nagy MD - Last Filed: 08/03/22 23:31> HENMT Head: Yes normal to inspection, Yes normocephalic and Yes atraumatic <Carlos Nagy MD - Last Filed: 08/03/22 23:31> Ears: external ears normal <Carlos Nagy MD - Last Filed: 08/03/22 23:31> General nose exam: Normal external nose present <Carlos Nagy MD - Last Filed: 08/03/22 23:31> Face and sinus: Yes normal facial exam <Carlos Nagy MD - Last Filed: 08/03/22 23:31> Mouth: Normal oral and palatal mucosa present <MD Priyank Rowell Last Filed: 08/03/22 23:31> Throat: Yes posterior oropharynx normal <MD Priyank Rowell Last Filed: 08/03/22 23:31> Eyes General: appearance normal, both eyes and all related structures <Carlos Nagy MD - Last Filed: 08/03/22 23:31> Pupils: Equal, round and reactive pupils present <Carlos Nagy MD - Last Filed: 08/03/22 23:31> Neck Neck: Yes normal visual inspection, Yes no lymphadenopathy, Yes trachea midline and Yes supple <Carlos Nagy MD - Last Filed: 08/03/22 23:31> Chest Chest palpation & inspection: normal inspection of the chest and normal palpation of entire chest wall <MD Priyank Rowell Last Filed: 08/03/22 23:31> Resp Effort & Inspection: normal respiratory effort and able to speak in complete sentences <MD Priyank Rowell Last Filed: 08/03/22 23:31> Auscultation: clear to auscultation bilaterally <MD Priyank Rowell Last Filed: 08/03/22 23:31> Cardio Rate: regular rate <MD Priyank Rowell Last Filed: 08/03/22 23:31> Rhythm: regular rhythm <MD Priyank Rowell Last Filed: 08/03/22 23:31> Heart sounds: S1 normal heart sound present, S2 normal heart sound present and no murmurs <Carlos Nagy MD - Last Filed: 08/03/22 23:31> GI Inspection: Yes normal to inspection <MD Priyank Rowell Last Filed: 08/03/22 23:31> Palpation (GI): Soft to palpation, Tenderness to palpation present (GI) ( moderate diffuse abdominal tenderness) and no guarding <MD Priyank Rowell Last Filed: 08/03/22 23:31> Auscultation: normal bowel sounds <MD Priyank Rowell Last Filed: 08/03/22 23:31> General: Yes no CVA tenderness <Carlos Nagy MD - Last Filed: 08/03/22 23:31> Back/Spine/Pelvis Back: no CVA tenderness <Carlos Nagy MD - Last Filed: 08/03/22 23:31> Skin General skin exam: no rashes or lesions noted <Carlos Nagy MD - Last Filed: 08/03/22 23:31> Neuro Cranial nerves: Yes CN's II-XII intact bilaterally and Yes Equal, round and reactive pupils present <Carlos Nagy MD - Last Filed: 08/03/22 23:31> Cognition (Neuro): normal cognition <Carlos Nagy MD - Last Filed: 08/03/22 23:31> Motor exam (neuro): 5/5 motor strength present throughout <Carlos Nagy MD - Last Filed: 08/03/22 23:31> Extrem General: Yes normal to inspection <Carlos Nagy MD - Last Filed: 08/03/22 23:31> Psych Appearance: grossly normal <Carlos Nagy MD - Last Filed: 08/03/22 23:31> Speech and movement: Normal speech and movement present <Carlos Nagy MD - Last Filed: 08/03/22 23:31> Affect: normal affect <Carlos Nagy MD - Last Filed: 08/03/22 23:31> Attitude: cooperative <Carlos Nagy MD - Last Filed: 08/03/22 23:31> Thought process: Normal thought process present <Carlos Nagy MD - Last Filed: 08/03/22 23:31> Thought content: Normal thought content present <Carlos Nagy MD - Last Filed: 08/03/22 23:31> Course Course Course Narrative: RME 1632 27 year old male hx of DM, DKA presenting with N/V/diffuse abd pain, malise, fatigue X 2 days. Hasnt eaten in two days just trying to drink fluids. Reports sugars in the 120s at home. Was recently flu +. PE- benign Plan- labs,UA,poc <ROSAURA Palacios - Last Filed: 08/03/22 16:34> RME 1632 27 year old male hx of DM, DKA presenting with N/V/diffuse abd pain, malise, fatigue X 2 days. Hasnt eaten in two days just trying to drink fluids. Reports sugars in the 120s at home. Was recently flu +. PE- benign Plan- labs,UA,poc 1956: RME Reviewed. 27-year-old male with history of diabetes mellitus, DKA in the past and cannabis cyclic vomiting syndrome who presents emergency department for evaluation vomiting x2 days, more than 15 episodes a day. He has not been able to eat but has been able to drink. He has not been giving himself insulin. He is also complaining of abdominal pain. Vital signs revealed an elevated blood pressure of 142/85 and elevated pulse of 118. The patient does have diffuse abdominal tenderness. Has a strong ketotic odor to his breath. Laboratory evaluation: WBC elevated 15,000, CO2 normal 27, BUN creatinine elevated 21 and 1.44. Glucose elevated 452. Acetone -small amount. Venous pH 7.52. COVID-19, RSV and influenza negative. Given the patient's normal pH and CO2, and I think that the patient's ketosis is consistent with starvation ketosis and his presentation is more consistent with either a viral syndrome or cyclic vomiting syndrome. Patient was ordered to get normal saline x2 L IV, Zofran 4 mg IV, morphine 4 mg IV. Patient was also given insulin 5 units IV I will repeat a point of care glucose 1 hour after he receives this insulin. 2325 : The patient required repeat dose of morphine 4 mg IV and insulin 5 mg IV. And insulin 5 mg IV. Patient is feeling better and would like to go home at this time. Patient does have Zofran 8 mg ODT which was not helping at home therefore he was prescribed Phenergan suppositories 25 mg every 6-8 hours as needed for nausea and vomiting. He was given printed and verbal instructions and discharged. Patient's repeat point of care glucose was improved at 286. <Carlos Nagy MD - Last Filed: 08/03/22 23:31> Medications Administered Discontinued Medications Generic Name Dose Route Start Last Admin Trade Name Freq PRN Reason Stop Dose Admin Sodium Chloride 1,000 mls @ 999 mls/hr 08/03/22 16:45 08/03/22 22:30 Ns IV 08/03/22 17:45 Infused .Q1H1M DESTINY Infusion Sodium Chloride 1,000 mls @ 999 mls/hr 08/03/22 19:51 08/03/22 22:30 Ns IV 08/03/22 20:51 Infused .Q1H1M STA Infusion Insulin Human Regular 5 unit 08/03/22 19:51 08/03/22 20:20 Insulin Regular, Human 100 Unit/Ml 3 Ml Vial IVPUSH 08/03/22 19:52 5 unit ONCE ONE Administration Insulin Human Regular 5 unit 08/03/22 22:11 08/03/22 22:46 Insulin Regular, Human 100 Unit/Ml 3 Ml Vial IVPUSH 08/03/22 22:12 5 unit ONCE ONE Administration Morphine Sulfate 4 mg 08/03/22 19:51 08/03/22 20:20 Morphine Sulfate 4 Mg/Ml Cartridge IVPUSH 08/03/22 19:52 4 mg ONCE STA Administration Protocol Morphine Sulfate 4 mg 08/03/22 21:29 08/03/22 22:07 Morphine Sulfate 4 Mg/Ml Cartridge IVPUSH 08/03/22 21:30 4 mg ONCE STA Administration Protocol Ondansetron HCl 4 mg 08/03/22 19:51 08/03/22 20:20 Ondansetron Hcl 4 Mg/2 Ml Vial IVPUSH 08/03/22 19:52 4 mg ONCE ONE Administration <ROSAURA Palacios - Last Filed: 08/03/22 16:34> Medications Administered Discontinued Medications Generic Name Dose Route Start Last Admin Trade Name Harpreetq PRN Reason Stop Dose Admin Sodium Chloride 1,000 mls @ 999 mls/hr 08/03/22 16:45 08/03/22 22:30 Ns IV 08/03/22 17:45 Infused .Q1H1M DESTINY Infusion Sodium Chloride 1,000 mls @ 999 mls/hr 08/03/22 19:51 08/03/22 22:30 Ns IV 08/03/22 20:51 Infused .Q1H1M STA Infusion Insulin Human Regular 5 unit 08/03/22 19:51 08/03/22 20:20 Insulin Regular, Human 100 Unit/Ml 3 Ml Vial IVPUSH 08/03/22 19:52 5 unit ONCE ONE Administration Insulin Human Regular 5 unit 08/03/22 22:11 08/03/22 22:46 Insulin Regular, Human 100 Unit/Ml 3 Ml Vial IVPUSH 08/03/22 22:12 5 unit ONCE ONE Administration Morphine Sulfate 4 mg 08/03/22 19:51 08/03/22 20:20 Morphine Sulfate 4 Mg/Ml Cartridge IVPUSH 08/03/22 19:52 4 mg ONCE STA Administration Protocol Morphine Sulfate 4 mg 08/03/22 21:29 08/03/22 22:07 Morphine Sulfate 4 Mg/Ml Cartridge IVPUSH 08/03/22 21:30 4 mg ONCE STA Administration Protocol Ondansetron HCl 4 mg 08/03/22 19:51 08/03/22 20:20 Ondansetron Hcl 4 Mg/2 Ml Vial IVPUSH 08/03/22 19:52 4 mg ONCE ONE Administration <Carlos Nagy MD - Last Filed: 08/03/22 23:31> Medical Decision Making Lab Data Result Diagrams: : 08/03/22 17:16 08/03/22 17:16 <ROSAURA Palacios - Last Filed: 08/03/22 16:34> Labs: Lab Results 08/03/22 08/03/22 08/03/22 Range/Units 17:16 17:16 17:16 WBC 15.7 H (4.8-10.8) X10*3/uL RBC 5.21 (4.60-5.80) X10*6/uL Hgb 15.0 (14.0-18.0) g/dl Hct 44.4 (42.0-52.0) % MCV 85.2 (80.0-98.0) fL MCH 28.8 (27.0-33.0) pg MCHC 33.8 (31.0-36.0) g/dl RDW 12.9 (11.0-16.0) % Plt Count 359 (160-400) X10*3/uL MPV 10.0 (9.4-12.4) fL Immature Gran % (Auto) 1.1 H (0.0-0.4) % Neut % (Auto) 80.5 H (45-73) % Lymph % (Auto) 9.0 L (20-40) % [place] % (Auto) 9.2 (2-11) % Eos % (Auto) 0.0 (0-4) % Baso % (Auto) 0.2 (0-2) % Lymph # (Auto) 1.4 (1.2-4.9) X10*3/uL [place] # (Auto) 1.4 H (0.1-1.2) X10*3/uL Eos # (Auto) 0.0 (0.0-0.4) X10*3/uL Baso # (Auto) 0.0 (0.0-0.2) X10*3/uL Abs Immat Gran (auto) 0.18 H (0.00-0.03) X10*3/uL Absolute Neuts (auto) 12.7 H (2.0-8.3) x10*3/uL Absolute Nucleated RBC 0.000 (0.0-0.012) X10*3/uL Nucleated RBC % (auto) 0.0 (0.0-0.2) /100WBC VBG pH (7.32-7.43) VBG pCO2 mmHg VBG pO2 mmHg VBG HCO3 (22-26) mmol/L VBG O2 Saturation % VBG Base Excess mmol/L Sodium 133 L (135-145) mmol/L Potassium 4.6 (3.3-5.1) mmol/L Chloride 90 L (96-108) mmol/L Carbon Dioxide 27 (22-29) mmol/L Anion Gap 21 H (12-20) BUN 21 H (9-16) mg/dL Creatinine 1.44 H (0.5-1.4) mg/dL Estim Creat Clear Calc 70.1 Estimated GFR 59 POC Glucose (60-115) mg/dL Random Glucose 454 H* (60-115) mg/dL Calcium 9.9 (8.4-10.2) mg/dL Magnesium 1.7 (1.6-2.6) mg/dL Total Bilirubin 0.9 (0.0-1.0) mg/dL AST 11 (5-37) U/L ALT 13 (0-40) U/L Alkaline Phosphatase 78 (39-117) U/L Total Protein 7.3 (6.5-8.0) g/dL Albumin 4.5 (3.5-5.0) g/dL Urine Color Urine Appearance Urine pH (5.0-9.0) Ur Specific [place] (1.005-1.025) Urine Protein (Neg-Trace) mg/dL Urine Glucose (UA) (Negative) mg/dL Urine Ketones (Negative) mg/dL Urine Blood (Negative) Urine Nitrite (Negative) Ur Leukocyte Esterase (Negative) Acetone, Qual Small H (Negative) Influenza Type A (PCR) NEGATIVE (Negative) Influenza Type B (PCR) NEGATIVE (Negative) RSV RNA Qual (PCR) NEGATIVE (Negative) SARS-CoV-2 RNA (RT-PCR) NEGATIVE (Negative) 08/03/22 08/03/22 08/03/22 Range/Units 17:25 20:03 22:06 WBC (4.8-10.8) X10*3/uL RBC (4.60-5.80) X10*6/uL Hgb (14.0-18.0) g/dl Hct (42.0-52.0) % MCV (80.0-98.0) fL MCH (27.0-33.0) pg MCHC (31.0-36.0) g/dl RDW (11.0-16.0) % Plt Count (160-400) X10*3/uL MPV (9.4-12.4) fL Immature Gran % (Auto) (0.0-0.4) % Neut % (Auto) (45-73) % Lymph % (Auto) (20-40) % [place] % (Auto) (2-11) % Eos % (Auto) (0-4) % Baso % (Auto) (0-2) % Lymph # (Auto) (1.2-4.9) X10*3/uL [place] # (Auto) (0.1-1.2) X10*3/uL Eos # (Auto) (0.0-0.4) X10*3/uL Baso # (Auto) (0.0-0.2) X10*3/uL Abs Immat Gran (auto) (0.00-0.03) X10*3/uL Absolute Neuts (auto) (2.0-8.3) x10*3/uL Absolute Nucleated RBC (0.0-0.012) X10*3/uL Nucleated RBC % (auto) (0.0-0.2) /100WBC VBG pH 7.52 H (7.32-7.43) VBG pCO2 27 mmHg VBG pO2 106 mmHg VBG HCO3 22 (22-26) mmol/L VBG O2 Saturation 100.0 % VBG Base Excess 1.6 mmol/L Sodium (135-145) mmol/L Potassium (3.3-5.1) mmol/L Chloride (96-108) mmol/L Carbon Dioxide (22-29) mmol/L Anion Gap (12-20) BUN (9-16) mg/dL Creatinine (0.5-1.4) mg/dL Estim Creat Clear Calc Estimated GFR POC Glucose 418 H* 311 H (60-115) mg/dL Random Glucose (60-115) mg/dL Calcium (8.4-10.2) mg/dL Magnesium (1.6-2.6) mg/dL Total Bilirubin (0.0-1.0) mg/dL AST (5-37) U/L ALT (0-40) U/L Alkaline Phosphatase (39-117) U/L Total Protein (6.5-8.0) g/dL Albumin (3.5-5.0) g/dL Urine Color Urine Appearance Urine pH (5.0-9.0) Ur Specific [place] (1.005-1.025) Urine Protein (Neg-Trace) mg/dL Urine Glucose (UA) (Negative) mg/dL Urine Ketones (Negative) mg/dL Urine Blood (Negative) Urine Nitrite (Negative) Ur Leukocyte Esterase (Negative) Acetone, Qual (Negative) Influenza Type A (PCR) (Negative) Influenza Type B (PCR) (Negative) RSV RNA Qual (PCR) (Negative) SARS-CoV-2 RNA (RT-PCR) (Negative) 08/03/22 08/03/22 Range/Units 23:08 23:13 WBC (4.8-10.8) X10*3/uL RBC (4.60-5.80) X10*6/uL Hgb (14.0-18.0) g/dl Hct (42.0-52.0) % MCV (80.0-98.0) fL MCH (27.0-33.0) pg MCHC (31.0-36.0) g/dl RDW (11.0-16.0) % Plt Count (160-400) X10*3/uL MPV (9.4-12.4) fL Immature Gran % (Auto) (0.0-0.4) % Neut % (Auto) (45-73) % Lymph % (Auto) (20-40) % [place] % (Auto) (2-11) % Eos % (Auto) (0-4) % Baso % (Auto) (0-2) % Lymph # (Auto) (1.2-4.9) X10*3/uL [place] # (Auto) (0.1-1.2) X10*3/uL Eos # (Auto) (0.0-0.4) X10*3/uL Baso # (Auto) (0.0-0.2) X10*3/uL Abs Immat Gran (auto) (0.00-0.03) X10*3/uL Absolute Neuts (auto) (2.0-8.3) x10*3/uL Absolute Nucleated RBC (0.0-0.012) X10*3/uL Nucleated RBC % (auto) (0.0-0.2) /100WBC VBG pH (7.32-7.43) VBG pCO2 mmHg VBG pO2 mmHg VBG HCO3 (22-26) mmol/L VBG O2 Saturation % VBG Base Excess mmol/L Sodium (135-145) mmol/L Potassium (3.3-5.1) mmol/L Chloride (96-108) mmol/L Carbon Dioxide (22-29) mmol/L Anion Gap (12-20) BUN (9-16) mg/dL Creatinine (0.5-1.4) mg/dL Estim Creat Clear Calc Estimated GFR POC Glucose 286 H (60-115) mg/dL Random Glucose (60-115) mg/dL Calcium (8.4-10.2) mg/dL Magnesium (1.6-2.6) mg/dL Total Bilirubin (0.0-1.0) mg/dL AST (5-37) U/L ALT (0-40) U/L Alkaline Phosphatase (39-117) U/L Total Protein (6.5-8.0) g/dL Albumin (3.5-5.0) g/dL Urine Color Yellow Urine Appearance Clear Urine pH 5.5 (5.0-9.0) Ur Specific [place] >= 1.030 H (1.005-1.025) Urine Protein Negative (Neg-Trace) mg/dL Urine Glucose (UA) >=1000 H (Negative) mg/dL Urine Ketones >=160 (Negative) mg/dL Urine Blood Negative (Negative) Urine Nitrite Negative (Negative) Ur Leukocyte Esterase Negative (Negative) Acetone, Qual (Negative) Influenza Type A (PCR) (Negative) Influenza Type B (PCR) (Negative) RSV RNA Qual (PCR) (Negative) SARS-CoV-2 RNA (RT-PCR) (Negative) <ROSAURA Palacios - Last Filed: 08/03/22 16:34> Lab Results 08/03/22 08/03/22 08/03/22 Range/Units 17:16 17:16 17:16 WBC 15.7 H (4.8-10.8) X10*3/uL RBC 5.21 (4.60-5.80) X10*6/uL Hgb 15.0 (14.0-18.0) g/dl Hct 44.4 (42.0-52.0) % MCV 85.2 (80.0-98.0) fL MCH 28.8 (27.0-33.0) pg MCHC 33.8 (31.0-36.0) g/dl RDW 12.9 (11.0-16.0) % Plt Count 359 (160-400) X10*3/uL MPV 10.0 (9.4-12.4) fL Immature Gran % (Auto) 1.1 H (0.0-0.4) % Neut % (Auto) 80.5 H (45-73) % Lymph % (Auto) 9.0 L (20-40) % [place] % (Auto) 9.2 (2-11) % Eos % (Auto) 0.0 (0-4) % Baso % (Auto) 0.2 (0-2) % Lymph # (Auto) 1.4 (1.2-4.9) X10*3/uL [place] # (Auto) 1.4 H (0.1-1.2) X10*3/uL Eos # (Auto) 0.0 (0.0-0.4) X10*3/uL Baso # (Auto) 0.0 (0.0-0.2) X10*3/uL Abs Immat Gran (auto) 0.18 H (0.00-0.03) X10*3/uL Absolute Neuts (auto) 12.7 H (2.0-8.3) x10*3/uL Absolute Nucleated RBC 0.000 (0.0-0.012) X10*3/uL Nucleated RBC % (auto) 0.0 (0.0-0.2) /100WBC VBG pH (7.32-7.43) VBG pCO2 mmHg VBG pO2 mmHg VBG HCO3 (22-26) mmol/L VBG O2 Saturation % VBG Base Excess mmol/L Sodium 133 L (135-145) mmol/L Potassium 4.6 (3.3-5.1) mmol/L Chloride 90 L (96-108) mmol/L Carbon Dioxide 27 (22-29) mmol/L Anion Gap 21 H (12-20) BUN 21 H (9-16) mg/dL Creatinine 1.44 H (0.5-1.4) mg/dL Estim Creat Clear Calc 70.1 Estimated GFR 59 POC Glucose (60-115) mg/dL Random Glucose 454 H* (60-115) mg/dL Calcium 9.9 (8.4-10.2) mg/dL Magnesium 1.7 (1.6-2.6) mg/dL Total Bilirubin 0.9 (0.0-1.0) mg/dL AST 11 (5-37) U/L ALT 13 (0-40) U/L Alkaline Phosphatase 78 (39-117) U/L Total Protein 7.3 (6.5-8.0) g/dL Albumin 4.5 (3.5-5.0) g/dL Urine Color Urine Appearance Urine pH (5.0-9.0) Ur Specific [place] (1.005-1.025) Urine Protein (Neg-Trace) mg/dL Urine Glucose (UA) (Negative) mg/dL Urine Ketones (Negative) mg/dL Urine Blood (Negative) Urine Nitrite (Negative) Ur Leukocyte Esterase (Negative) Acetone, Qual Small H (Negative) Influenza Type A (PCR) NEGATIVE (Negative) Influenza Type B (PCR) NEGATIVE (Negative) RSV RNA Qual (PCR) NEGATIVE (Negative) SARS-CoV-2 RNA (RT-PCR) NEGATIVE (Negative) 08/03/22 08/03/22 08/03/22 Range/Units 17:25 20:03 22:06 WBC (4.8-10.8) X10*3/uL RBC (4.60-5.80) X10*6/uL Hgb (14.0-18.0) g/dl Hct (42.0-52.0) % MCV (80.0-98.0) fL MCH (27.0-33.0) pg MCHC (31.0-36.0) g/dl RDW (11.0-16.0) % Plt Count (160-400) X10*3/uL MPV (9.4-12.4) fL Immature Gran % (Auto) (0.0-0.4) % Neut % (Auto) (45-73) % Lymph % (Auto) (20-40) % [place] % (Auto) (2-11) % Eos % (Auto) (0-4) % Baso % (Auto) (0-2) % Lymph # (Auto) (1.2-4.9) X10*3/uL [place] # (Auto) (0.1-1.2) X10*3/uL Eos # (Auto) (0.0-0.4) X10*3/uL Baso # (Auto) (0.0-0.2) X10*3/uL Abs Immat Gran (auto) (0.00-0.03) X10*3/uL Absolute Neuts (auto) (2.0-8.3) x10*3/uL Absolute Nucleated RBC (0.0-0.012) X10*3/uL Nucleated RBC % (auto) (0.0-0.2) /100WBC VBG pH 7.52 H (7.32-7.43) VBG pCO2 27 mmHg VBG pO2 106 mmHg VBG HCO3 22 (22-26) mmol/L VBG O2 Saturation 100.0 % VBG Base Excess 1.6 mmol/L Sodium (135-145) mmol/L Potassium (3.3-5.1) mmol/L Chloride (96-108) mmol/L Carbon Dioxide (22-29) mmol/L Anion Gap (12-20) BUN (9-16) mg/dL Creatinine (0.5-1.4) mg/dL Estim Creat Clear Calc Estimated GFR POC Glucose 418 H* 311 H (60-115) mg/dL Random Glucose (60-115) mg/dL Calcium (8.4-10.2) mg/dL Magnesium (1.6-2.6) mg/dL Total Bilirubin (0.0-1.0) mg/dL AST (5-37) U/L ALT (0-40) U/L Alkaline Phosphatase (39-117) U/L Total Protein (6.5-8.0) g/dL Albumin (3.5-5.0) g/dL Urine Color Urine Appearance Urine pH (5.0-9.0) Ur Specific [place] (1.005-1.025) Urine Protein (Neg-Trace) mg/dL Urine Glucose (UA) (Negative) mg/dL Urine Ketones (Negative) mg/dL Urine Blood (Negative) Urine Nitrite (Negative) Ur Leukocyte Esterase (Negative) Acetone, Qual (Negative) Influenza Type A (PCR) (Negative) Influenza Type B (PCR) (Negative) RSV RNA Qual (PCR) (Negative) SARS-CoV-2 RNA (RT-PCR) (Negative) 08/03/22 08/03/22 Range/Units 23:08 23:13 WBC (4.8-10.8) X10*3/uL RBC (4.60-5.80) X10*6/uL Hgb (14.0-18.0) g/dl Hct (42.0-52.0) % MCV (80.0-98.0) fL MCH (27.0-33.0) pg MCHC (31.0-36.0) g/dl RDW (11.0-16.0) % Plt Count (160-400) X10*3/uL MPV (9.4-12.4) fL Immature Gran % (Auto) (0.0-0.4) % Neut % (Auto) (45-73) % Lymph % (Auto) (20-40) % [place] % (Auto) (2-11) % Eos % (Auto) (0-4) % Baso % (Auto) (0-2) % Lymph # (Auto) (1.2-4.9) X10*3/uL [place] # (Auto) (0.1-1.2) X10*3/uL Eos # (Auto) (0.0-0.4) X10*3/uL Baso # (Auto) (0.0-0.2) X10*3/uL Abs Immat Gran (auto) (0.00-0.03) X10*3/uL Absolute Neuts (auto) (2.0-8.3) x10*3/uL Absolute Nucleated RBC (0.0-0.012) X10*3/uL Nucleated RBC % (auto) (0.0-0.2) /100WBC VBG pH (7.32-7.43) VBG pCO2 mmHg VBG pO2 mmHg VBG HCO3 (22-26) mmol/L VBG O2 Saturation % VBG Base Excess mmol/L Sodium (135-145) mmol/L Potassium (3.3-5.1) mmol/L Chloride (96-108) mmol/L Carbon Dioxide (22-29) mmol/L Anion Gap (12-20) BUN (9-16) mg/dL Creatinine (0.5-1.4) mg/dL Estim Creat Clear Calc Estimated GFR POC Glucose 286 H (60-115) mg/dL Random Glucose (60-115) mg/dL Calcium (8.4-10.2) mg/dL Magnesium (1.6-2.6) mg/dL Total Bilirubin (0.0-1.0) mg/dL AST (5-37) U/L ALT (0-40) U/L Alkaline Phosphatase (39-117) U/L Total Protein (6.5-8.0) g/dL Albumin (3.5-5.0) g/dL Urine Color Yellow Urine Appearance Clear Urine pH 5.5 (5.0-9.0) Ur Specific [place] >= 1.030 H (1.005-1.025) Urine Protein Negative (Neg-Trace) mg/dL Urine Glucose (UA) >=1000 H (Negative) mg/dL Urine Ketones >=160 (Negative) mg/dL Urine Blood Negative (Negative) Urine Nitrite Negative (Negative) Ur Leukocyte Esterase Negative (Negative) Acetone, Qual (Negative) Influenza Type A (PCR) (Negative) Influenza Type B (PCR) (Negative) RSV RNA Qual (PCR) (Negative) SARS-CoV-2 RNA (RT-PCR) (Negative) <Carlos Nagy MD - Last Filed: 08/03/22 23:31> Discharge Plan Discharge Clinical Impression: Cyclic vomiting syndrome, Acute hyperglycemia Abdominal pain Qualifiers: Abdominal location: generalized Qualified Code(s): R10.84 - Generalized abdominal pain <ROSAURA Palacios - Last Filed: 08/03/22 16:34> Patient Disposition: Home, Self-Care <ROSAURA Palacios - Last Filed: 08/03/22 16:34> Additional Instructions: Your blood glucose was very high. Your very dehydrated At this time I do not think that urine diabetic ketoacidosis. Your symptoms or you the caused by your gastroparesis or cyclic vomiting syndrome. Take Phenergan ( promethazine ) 25 mg suppositories, use 1 suppository in your rectum every 6-8 hours as needed for nausea and vomiting. Continue taking your medications as prescribed by your providers. Insert discharge follow-up return. <ROSAURA Palacios - Last Filed: 08/03/22 16:34> Prescriptions: New promethazine [Promethegan] 25 mg suppository 25 mg FL Q6H PRN (Reason: nausea and vomiting) Qty: 20 0RF No Action sertraline 25 mg tablet 25 mg PO DAILY pantoprazole 40 mg tablet,delayed release (DR/EC) 1 tab PO DAILY insulin lispro protamin-lispro 100 unit/mL (75-25) insulin pen 60 unit subcut BID ondansetron HCl 8 mg tablet 8 mg PO Q8H PRN (Reason: nausea and vomiting) 5 Days Qty: 15 0RF ondansetron 8 mg tablet,disintegrating 8 mg PO Q8H PRN (Reason: nausea and vomiting) 5 Days Qty: 15 0RF <ROSAURA Palacios - Last Filed: 08/03/22 16:34>
[2022-08-03 17:21] LABS: MANUAL DIFF FLAG NO
[2022-08-03 17:30] LABS: Venous Blood Gas Refer to POC result
[2022-08-03 17:31] LABS: VBG Base Excess 1.6 mmol/L; VBG HCO3 22 mmol/L (22-26); VBG pCO2 27 mmHg; VBG pH 7.52 (7.32-7.43); VBG pO2 106 mmHg
[2022-08-03 17:54] LABS: Basophils Percent Auto 0.2 % (0-2); Hematocrit 44.4 % (42.0-52.0); Imm Gran Abs Auto 0.18 X10*3/uL (0.00-0.03); Imm Gran Pct Auto 1.1 % (0.0-0.4); Lymphocytes Absolute Auto 1.4 X10*3/uL (1.2-4.9); Mean Corpuscular HGB Conc 33.8 g/dl (31.0-36.0); Mean Corpuscular Hemoglobin 28.8 pg (27.0-33.0); Mean Corpuscular Volume 85.2 fL (80.0-98.0); Monocytes Absolute Auto 1.4 X10*3/uL (0.1-1.2); Monocytes Percent Auto 9.2 % (2-11); Neutrophils Absolute Auto 12.7 x10*3/uL (2.0-8.3); Neutrophils Percent Auto 80.5 % (45-73); Platelet Count 359 X10*3/uL (160-400); Red Blood Count 5.21 X10*6/uL (4.60-5.80); Red Cell Distribution Width 12.9 % (11.0-16.0); White Blood Count 15.7 X10*3/uL (4.8-10.8)
[2022-08-03 17:55] LABS: Alanine Aminotransferase 13 U/L (0-40); Albumin Level 4.5 g/dL (3.5-5.0); Alkaline Phosphatase 78 U/L (39-117); Anion Gap 21 (12-20); Aspartate Amino Transferase 11 U/L (5-37); Bilirubin Total 0.9 mg/dL (0.0-1.0); Blood Urea Nitrogen 21 mg/dL (9-16); Calcium 9.9 mg/dL (8.4-10.2); Carbon Dioxide 27 mmol/L (22-29); Chloride 90 mmol/L (96-108); Creatinine Clr Calc Pharmacy 70.1; Estimated Glomerular Filt Rate 59; Glucose Random 454 mg/dL (60-115); Magnesium 1.7 mg/dL (1.6-2.6); Potassium 4.6 mmol/L (3.3-5.1); Sodium 133 mmol/L (135-145); Total Protein 7.3 g/dL (6.5-8.0)
[2022-08-03 18:21] LABS: Acetone, serum QL Small (Negative)
[2022-08-03 18:23] LABS: Influenza A PCR NEGATIVE (Negative); Influenza B PCR NEGATIVE (Negative); Resp Syncy Virus RNA Qual PCR NEGATIVE (Negative); SARS COV2 PCR INHOUSE NEGATIVE (Negative)
[2022-08-03 20:07] LABS: Glucose, Whole Blood 418 mg/dL (60-115)
[2022-08-03] MEDS: ondansetron HCL 4 MG/2 ML VIAL IVPUSH (20:20)
[2022-08-03] MEDS: Insulin Regular, Human 100 UNIT/ML 3 ML VIAL IVPUSH ×2 (20:20→22:46)
[2022-08-03] MEDS: Morphine Sulfate 4 MG/ML CARTRIDGE IVPUSH ×2 (20:20→22:07)
[2022-08-03] MEDS: 0.9 % Sodium Chloride 1,000 ML 999 ML IV ×2 (20:31→20:32)
[2022-08-03 21:17] VITALS: BP 130/74; PULSE 82; RESP 16; TEMP 36.2; O2SAT 97
[2022-08-03 22:00] VITALS: BP 136/64; PULSE 72; RESP 16; TEMP 36.6; O2SAT 96
[2022-08-03 22:13] LABS: Glucose, Whole Blood 311 mg/dL (60-115)
[2022-08-03 23:15] LABS: Appearance Urine Clear; Color Urine Yellow; Glucose Urine UA >=1000 mg/dL (Negative); Leukocyte Esterase Urine Negative (Negative); Nitrite Urine Negative (Negative); PH 5.5 (5.0-9.0); Specific Gravity - Urine >= 1.030 (1.005-1.025); UMIC TRIGGER UACC YES; Urine Blood Negative (Negative); Urine Ketones >=160 mg/dL (Negative); Urine Protein Negative (Neg-Trace)
[2022-08-03 23:17] LABS: Glucose, Whole Blood 286 mg/dL (60-115)
[2022-08-03 23:23] LABS: Bacteria Urine None Seen (None Seen); Hyaline Casts Urine 0-2 /LPF (0-2); RBC Urine 0-2 /HPF (0-2); Squamous Epithelial Cell Urine 0-2 /HPF (0-2); WBC Urine 0-5 /HPF (0-5)
--- NOTE | 2022-08-03 23:48 | PC.NURSE ---
IV line removed. Pt tolerated well. Discharge instructions reviewed with pt. Pt verbalizes understanding.
== END 2022-08-03 23:48 | disposition home or self-care (01) ==
PROVIDERS: Physician Assistant; Emergency Provider Emergency Medicine Emergency Medical Services
DX: F12.19 Cannabis abuse with unspecified cannabis-induced disorder (principal); E11.65 Type 2 diabetes mellitus with hyperglycemia; E86.0 Dehydration; R51.9 Headache, unspecified; Z20.822 Contact with and (suspected) exposure to COVID-19; Z79.899 Other long term (current) drug therapy; Z79.4 Long term (current) use of insulin
CPT/HCPCS: 0241U; 80053; 81001; 82009; 82803; 82947; 83735; 85025; 96361; 96374; 96375; 96376; 99284; J2270; J2405

== ENCOUNTER 2022-08-04 09:52 | Emergency (ER) | payer OTHER, SELFPAY ==
[2022-08-04 09:58] VITALS: BP 160/100; PULSE 103; RESP 18; TEMP 36.7; O2SAT 100; BMI 21.7
--- NOTE | 2022-08-04 10:04 | ED_ITS ---
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 Patient admits was seen in this ED last night discharge around 01:00AM for similar symptoms. Reports decreased p.o. intake today, did not take insulin today. Reports mild continued SOB from recent influenza diagnosis however improving. Denies known fever, chills, diarrhea, dysuria/hematuria, recent travel, chest pain MD elicited complaint: nausea, vomiting and abdominal pain Pertinent past history: cyclical vomiting Onset (ago): hour(s) Related Data Home Medications Medication Instructions Recorded Confirmed sertraline 25 mg tablet 25 mg PO DAILY 12/28/21 06/17/22 pantoprazole 40 mg tablet,delayed 1 tab PO DAILY 03/15/22 06/17/22 release insulin lispro protamine-lispro 60 unit subcut BID 04/30/22 06/17/22 100 unit/mL (75-25) subcutaneous pen Previous Rx's Medication Instructions Recorded ondansetron HCl 8 mg tablet 8 mg PO Q8H PRN nausea and 06/19/22 vomiting 5 days #15 tabs ondansetron 8 mg disintegrating 8 mg PO Q8H PRN nausea and 07/11/22 tablet vomiting 5 days #15 tabs promethazine 25 mg rectal 25 mg PA Q6H PRN nausea and 08/03/22 suppository (Promethegan) vomiting #20 ea Allergies Allergy/AdvReac Type Severity Reaction Status Date / Time passion fruit [PASSION FRUIT] Allergy Unknown UNK Verified 08/03/22 16:35 Review of Systems Review of Systems: Constitutional: No Fever, + Chills, No Fatigue, No Malaise ENT/Mouth: No Ear Pain, No Nasal Congestion, No Sinus Pain, No Hoarseness, No sore throat, No Rhinorrhea, No Swallowing Difficulty Eyes: No Eye Pain, No Swelling, No Redness, No Foreign Body, No Discharge, No Vision Changes Cardiovascular: No Chest Pain, + SOB (improving), No Edema, No Palpitations Respiratory: No Cough, No Sputum, No Wheezing, No Dyspnea Gastrointestinal: + Nausea, + Vomiting, No Diarrhea, No Constipation, + Abdominal pain Genitourinary: No Dysuria, No Urinary Frequency, No Hematuria, No Flank Pain, No Urinary Flow Changes, No Hesitancy Musculoskeletal: No joint pain, No Myalgias, No Joint Swelling Skin: No Skin Lesions, No rash Neuro: No Weakness, No Numbness, + Paresthesias, No Loss of Consciousness, No Dizziness, No Headache Yes all other systems are reviewed and are negative Constitutional: Constitutional: Reports as per [facility] Past Medical History Attestation statement: The following information was validated with the patient. Medical History Cyclical vomiting Diabetes Diabetic gastroparesis Diabetic keto-acidosis Esophageal ulcer Gastroparesis Leukocytosis Noncompliance with medication regimen Persistent hyperactive cannabis intoxication delirium Surgical History No pertinent past surgical history Family History Family History Other No family history of coronary artery disease Social History Social History Household Members: None Housing: Apartment Do you presently have visiting nurse or other home services: No Alcohol intake: never Patient Tobacco Use Status: Never used Tobacco Substance Use Type: Marijuana Advance Directives: Yes Advance Directives on File: Yes Advance Directives Date on File: 01/22/21 service: No Current occupational status: employed Physical Exam Vital Signs: Vital Signs: Last Vital Signs Temp 98.7 F 08/04/22 10:20 Pulse 94 08/04/22 11:50 Resp 16 08/04/22 11:50 BP 149/81 H 08/04/22 11:50 Pulse Ox 100 08/04/22 11:50 O2 Del Method 08/04/22 11:50 BMI result Body Mass Index 21.7 Const: General: cooperative, healthy appearing, no acute distress, alert and awake Orientation/consciousness: patient oriented x3 Limitations: no limitations HEENT: Head: Yes normal to inspection and Yes atraumatic Ears: hearing grossly normal bilaterally General nose exam: Normal external nose present Face and sinus: Yes normal facial exam Eyes: General: appearance normal, both eyes and all related structures EOM: EOMs intact bilaterally Neck: Neck: Yes normal visual inspection and Yes no meningeal signs Resp: Effort & Inspection: normal respiratory effort and no respiratory distress Auscultation: clear to auscultation bilaterally, no crackles, no rales, no rhonchi and no wheezes Cardio: Rate: regular rate Heart sounds: S1 normal heart sound present and S2 normal heart sound present GI: Inspection: Yes normal to inspection Palpation (GI): Soft to palpation, Tenderness to palpation present (GI) (mild lower abdomen) with no rebound tenderness, no guarding and not rigid : General: Yes no CVA tenderness Back/Spine/Pelvis: Back: no CVA tenderness Skin: Rashes: no rashes Wounds: no wounds Neuro: General: patient oriented x3, tone normal and no meningeal signs Gait exam (Neuro): Normal gait present Extrem: General: Yes normal to inspection Course Course Course Narrative: -improving leukocytosis from yesterday, pH WNL, sodium 132 > corrected for hyperglycemia is 137 -GISSELLE improved from yesterday. Glucose 417 > given 5 units IV insulin. No anion gap. Labs otherwise reassuring -UA with >=160 ketones -1340--on re-evaluation patient reports continued abdominal pain, requesting morphine. Will repeat POC and p.o. challenge -repeat POC 286. Tox screen positive for opiates and THC. Patient tolerated p.o. in the ED without nausea or vomiting, ambulating without distress. Plan to discharge home Medications Administered Discontinued Medications Generic Name Dose Route Start Last Admin Trade Name Roger PRN Reason Stop Dose Admin Al Hydroxide/Mg Hydroxide 30 ml 08/04/22 10:06 08/04/22 10:33 Magnesium Hydrox/Alum Hydrox 30 Ml Oral.Susp PO 08/04/22 10:07 30 ml ONCE ONE Administration Diphenhydramine HCl 25 mg 08/04/22 10:11 08/04/22 10:40 Diphenhydramine Hcl 50 Mg/Ml Vial IVPUSH 08/04/22 10:12 25 mg ONCE ONE Administration Famotidine 20 mg 08/04/22 10:06 08/04/22 10:33 Famotidine/Pf 20 Mg/2 Ml Vial IVPUSH 08/04/22 10:07 20 mg ONCE ONE Administration Lactated Ringer's 1,000 mls @ 999 mls/hr 08/04/22 10:15 08/04/22 11:41 Lr IV 08/04/22 11:15 Infused .Q1H1M DESTINY Infusion Lactated Ringer's 1,000 mls @ 999 mls/hr 08/04/22 10:15 08/04/22 12:49 Lr IV 08/04/22 11:15 Infused .Q1H1M DESTINY Infusion Insulin Human Regular 5 unit 08/04/22 10:52 08/04/22 11:13 Insulin Regular, Human 100 Unit/Ml 3 Ml Vial IVPUSH 08/04/22 10:53 5 unit ONCE ONE Administration Ketorolac Tromethamine 15 mg 08/04/22 10:11 08/04/22 10:33 Ketorolac Tromethamine 15 Mg/Ml Vial IVPUSH 08/04/22 10:12 15 mg ONCE ONE Administration Lidocaine HCl 15 ml 08/04/22 10:06 08/04/22 10:33 Lidocaine Hcl Viscous 2 % 15 Ml Solution MUCOUS MEM 08/04/22 10:07 15 ml ONCE ONE Administration Morphine Sulfate 1 mg 08/04/22 13:39 08/04/22 13:50 Morphine Sulfate 2 Mg/Ml Cartridge IVPUSH 08/04/22 13:40 1 mg ONCE ONE Administration Protocol Ondansetron HCl 4 mg 08/04/22 10:06 08/04/22 10:33 Ondansetron Hcl 4 Mg/2 Ml Vial IVPUSH 08/04/22 10:07 4 mg ONCE ONE Administration Medical Decision Making Medical Decision Making MDM Narrative: 27-year-old male with a past medical history of diabetes, DKA, diabetic gastroparesis, 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 On exam hypertensive, tachycardic likely from dehydration, POC 400 on ED arrival, abdomen soft with mild lower tenderness, no rebound or guarding, no CVA tenderness. Concern for dehydrat ion/ketosis vs DKA vs gastroparesis flare vs cyclical vomiting. Rule out metabolic and infectious etiologies. Low suspicion for appendicitis/diverticulitis Plan: Labs, UA, drug screen, IVF, GI cocktail, IV Zofran/Toradol, IV Insulin, re-evaluate Differential Diagnosis Differential Diagnoses: The differential diagnosis associated with the presentation includes as above Lab Data Result Diagrams: 08/04/22 10:17 08/04/22 10:17 Labs: Lab Results 08/04/22 08/04/22 08/04/22 Range/Units 10:10 10:17 10:17 WBC 11.8 H (4.8-10.8) X10*3/uL RBC 5.04 (4.60-5.80) X10*6/uL Hgb 14.5 (14.0-18.0) g/dl Hct 44.1 (42.0-52.0) % MCV 87.5 (80.0-98.0) fL MCH 28.8 (27.0-33.0) pg MCHC 32.9 (31.0-36.0) g/dl RDW 12.9 (11.0-16.0) % Plt Count 277 (160-400) X10*3/uL MPV 9.6 (9.4-12.4) fL Immature Gran % (Auto) 0.4 (0.0-0.4) % Neut % (Auto) 82.8 H (45-73) % Lymph % (Auto) 9.2 L (20-40) % [place] % (Auto) 7.1 (2-11) % Eos % (Auto) 0.2 (0-4) % Baso % (Auto) 0.3 (0-2) % Lymph # (Auto) 1.1 L (1.2-4.9) X10*3/uL [place] # (Auto) 0.8 (0.1-1.2) X10*3/uL Eos # (Auto) 0.0 (0.0-0.4) X10*3/uL Baso # (Auto) 0.0 (0.0-0.2) X10*3/uL Abs Immat Gran (auto) 0.05 H (0.00-0.03) X10*3/uL Absolute Neuts (auto) 9.8 H (2.0-8.3) x10*3/uL Absolute Nucleated RBC 0.000 (0.0-0.012) X10*3/uL Nucleated RBC % (auto) 0.0 (0.0-0.2) /100WBC VBG pH (7.32-7.43) VBG pCO2 mmHg VBG pO2 mmHg VBG HCO3 (22-26) mmol/L VBG O2 Saturation % VBG Base Excess mmol/L Sodium 132 L (135-145) mmol/L Potassium 4.2 (3.3-5.1) mmol/L Chloride 91 L (96-108) mmol/L Carbon Dioxide 26 (22-29) mmol/L Anion Gap 19 (12-20) BUN 16 (9-16) mg/dL Creatinine 1.25 (0.5-1.4) mg/dL Estim Creat Clear Calc 77.5 Estimated GFR > 60 POC Glucose 400 H* (60-115) mg/dL Random Glucose 417 H* (60-115) mg/dL Calcium 9.0 D (8.4-10.2) mg/dL Magnesium 1.9 (1.6-2.6) mg/dL Total Bilirubin 1.0 (0.0-1.0) mg/dL Direct Bilirubin 0.3 (0.0-0.5) mg/dL AST 14 (5-37) U/L ALT 13 (0-40) U/L Alkaline Phosphatase 74 (39-117) U/L Total Protein 6.8 (6.5-8.0) g/dL Albumin 4.2 (3.5-5.0) g/dL Lipase 14 (8-78) U/L Urine Color Urine Appearance Urine pH (5.0-9.0) Ur Specific [place] (1.005-1.025) Urine Protein (Neg-Trace) mg/dL Urine Glucose (UA) (Negative) mg/dL Urine Ketones (Negative) mg/dL Urine Blood (Negative) Urine Nitrite (Negative) Ur Leukocyte Esterase (Negative) Urine RBC (0-2) /HPF Urine WBC (0-5) /HPF Ur Squamous Epith Cells (0-2) /HPF Urine Bacteria (None Seen) Hyaline Casts (0-2) /LPF Urine Opiates Screen (Not Detect) Urine Fentanyl Screen (Not Detect) Ur Barbiturates Screen (Not Detect) Ur Phencyclidine Scrn (Not Detect) Ur Amphetamines Screen (Not Detect) U Benzodiazepines Scrn (Not Detect) Urine Cocaine Screen (Not Detect) U Marijuana (THC) Screen (Not Detect) Acetone, Qual Small H (Negative) 08/04/22 08/04/22 08/04/22 Range/Units 10:21 11:52 11:52 WBC (4.8-10.8) X10*3/uL RBC (4.60-5.80) X10*6/uL Hgb (14.0-18.0) g/dl Hct (42.0-52.0) % MCV (80.0-98.0) fL MCH (27.0-33.0) pg MCHC (31.0-36.0) g/dl RDW (11.0-16.0) % Plt Count (160-400) X10*3/uL MPV (9.4-12.4) fL Immature Gran % (Auto) (0.0-0.4) % Neut % (Auto) (45-73) % Lymph % (Auto) (20-40) % [place] % (Auto) (2-11) % Eos % (Auto) (0-4) % Baso % (Auto) (0-2) % Lymph # (Auto) (1.2-4.9) X10*3/uL [place] # (Auto) (0.1-1.2) X10*3/uL Eos # (Auto) (0.0-0.4) X10*3/uL Baso # (Auto) (0.0-0.2) X10*3/uL Abs Immat Gran (auto) (0.00-0.03) X10*3/uL Absolute Neuts (auto) (2.0-8.3) x10*3/uL Absolute Nucleated RBC (0.0-0.012) X10*3/uL Nucleated RBC % (auto) (0.0-0.2) /100WBC VBG pH 7.34 (7.32-7.43) VBG pCO2 43 mmHg VBG pO2 37 mmHg VBG HCO3 24 (22-26) mmol/L VBG O2 Saturation 51.0 % VBG Base Excess -1.7 mmol/L Sodium (135-145) mmol/L Potassium (3.3-5.1) mmol/L Chloride (96-108) mmol/L Carbon Dioxide (22-29) mmol/L Anion Gap (12-20) BUN (9-16) mg/dL Creatinine (0.5-1.4) mg/dL Estim Creat Clear Calc Estimated GFR POC Glucose (60-115) mg/dL Random Glucose (60-115) mg/dL Calcium (8.4-10.2) mg/dL Magnesium (1.6-2.6) mg/dL Total Bilirubin (0.0-1.0) mg/dL Direct Bilirubin (0.0-0.5) mg/dL AST (5-37) U/L ALT (0-40) U/L Alkaline Phosphatase (39-117) U/L Total Protein (6.5-8.0) g/dL Albumin (3.5-5.0) g/dL Lipase (8-78) U/L Urine Color Yellow Urine Appearance Clear Urine pH 6.5 (5.0-9.0) Ur Specific [place] >= 1.030 H (1.005-1.025) Urine Protein Negative (Neg-Trace) mg/dL Urine Glucose (UA) >=1000 H (Negative) mg/dL Urine Ketones >=160 (Negative) mg/dL Urine Blood Negative (Negative) Urine Nitrite Negative (Negative) Ur Leukocyte Esterase Negative (Negative) Urine RBC 0-2 (0-2) /HPF Urine WBC 0-5 (0-5) /HPF Ur Squamous Epith Cells 0-2 (0-2) /HPF Urine Bacteria None Seen (None Seen) Hyaline Casts 0-2 (0-2) /LPF Urine Opiates Screen POSITIVE H (Not Detect) Urine Fentanyl Screen Not Detected (Not Detect) Ur Barbiturates Screen Not Detected (Not Detect) Ur Phencyclidine Scrn Not Detected (Not Detect) Ur Amphetamines Screen Not Detected (Not Detect) U Benzodiazepines Scrn Not Detected (Not Detect) Urine Cocaine Screen Not Detected (Not Detect) U Marijuana (THC) Screen POSITIVE H (Not Detect) Acetone, Qual (Negative) 08/04/22 Range/Units 13:40 WBC (4.8-10.8) X10*3/uL RBC (4.60-5.80) X10*6/uL Hgb (14.0-18.0) g/dl Hct (42.0-52.0) % MCV (80.0-98.0) fL MCH (27.0-33.0) pg MCHC (31.0-36.0) g/dl RDW (11.0-16.0) % Plt Count (160-400) X10*3/uL MPV (9.4-12.4) fL Immature Gran % (Auto) (0.0-0.4) % Neut % (Auto) (45-73) % Lymph % (Auto) (20-40) % [place] % (Auto) (2-11) % Eos % (Auto) (0-4) % Baso % (Auto) (0-2) % Lymph # (Auto) (1.2-4.9) X10*3/uL [place] # (Auto) (0.1-1.2) X10*3/uL Eos # (Auto) (0.0-0.4) X10*3/uL Baso # (Auto) (0.0-0.2) X10*3/uL Abs Immat Gran (auto) (0.00-0.03) X10*3/uL Absolute Neuts (auto) (2.0-8.3) x10*3/uL Absolute Nucleated RBC (0.0-0.012) X10*3/uL Nucleated RBC % (auto) (0.0-0.2) /100WBC VBG pH (7.32-7.43) VBG pCO2 mmHg VBG pO2 mmHg VBG HCO3 (22-26) mmol/L VBG O2 Saturation % VBG Base Excess mmol/L Sodium (135-145) mmol/L Potassium (3.3-5.1) mmol/L Chloride (96-108) mmol/L Carbon Dioxide (22-29) mmol/L Anion Gap (12-20) BUN (9-16) mg/dL Creatinine (0.5-1.4) mg/dL Estim Creat Clear Calc Estimated GFR POC Glucose 286 H (60-115) mg/dL Random Glucose (60-115) mg/dL Calcium (8.4-10.2) mg/dL Magnesium (1.6-2.6) mg/dL Total Bilirubin (0.0-1.0) mg/dL Direct Bilirubin (0.0-0.5) mg/dL AST (5-37) U/L ALT (0-40) U/L Alkaline Phosphatase (39-117) U/L Total Protein (6.5-8.0) g/dL Albumin (3.5-5.0) g/dL Lipase (8-78) U/L Urine Color Urine Appearance Urine pH (5.0-9.0) Ur Specific [place] (1.005-1.025) Urine Protein (Neg-Trace) mg/dL Urine Glucose (UA) (Negative) mg/dL Urine Ketones (Negative) mg/dL Urine Blood (Negative) Urine Nitrite (Negative) Ur Leukocyte Esterase (Negative) Urine RBC (0-2) /HPF Urine WBC (0-5) /HPF Ur Squamous Epith Cells (0-2) /HPF Urine Bacteria (None Seen) Hyaline Casts (0-2) /LPF Urine Opiates Screen (Not Detect) Urine Fentanyl Screen (Not Detect) Ur Barbiturates Screen (Not Detect) Ur Phencyclidine Scrn (Not Detect) Ur Amphetamines Screen (Not Detect) U Benzodiazepines Scrn (Not Detect) Urine Cocaine Screen (Not Detect) U Marijuana (THC) Screen (Not Detect) Acetone, Qual (Negative) Discharge Plan Discharge Clinical Impression: Acute hyperglycemia, Acute dehydration Patient Disposition: Home, Self-Care Prescriptions: No Action sertraline 25 mg tablet 25 mg PO DAILY pantoprazole 40 mg tablet,delayed release (DR/EC) 1 tab PO DAILY insulin lispro protamin-lispro 100 unit/mL (75-25) insulin pen 60 unit subcut BID ondansetron HCl 8 mg tablet 8 mg PO Q8H PRN (Reason: nausea and vomiting) 5 Days Qty: 15 0RF ondansetron 8 mg tablet,disintegrating 8 mg PO Q8H PRN (Reason: nausea and vomiting) 5 Days Qty: 15 0RF promethazine [Promethegan] 25 mg suppository 25 mg PA Q6H PRN (Reason: nausea and vomiting) Qty: 20 0RF
--- NOTE | 2022-08-04 10:12 | MHC.EDTECH ---
POC 400 @1014
[2022-08-04 10:13] LABS: Glucose, Whole Blood 400 mg/dL (60-115)
[2022-08-04 10:20] VITALS: BP 156/91; PULSE 88; RESP 15; TEMP 37.1; O2SAT 100
[2022-08-04 10:21] LABS: MANUAL DIFF FLAG NO
[2022-08-04 10:24] LABS: Basophils Percent Auto 0.3 % (0-2); Eosinophils Percent Auto 0.2 % (0-4); Hematocrit 44.1 % (42.0-52.0); Hemoglobin 14.5 g/dl (14.0-18.0); Imm Gran Abs Auto 0.05 X10*3/uL (0.00-0.03); Imm Gran Pct Auto 0.4 % (0.0-0.4); Lymphocytes Absolute Auto 1.1 X10*3/uL (1.2-4.9); Lymphocytes Percent Auto 9.2 % (20-40); Mean Corpuscular HGB Conc 32.9 g/dl (31.0-36.0); Mean Corpuscular Hemoglobin 28.8 pg (27.0-33.0); Mean Corpuscular Volume 87.5 fL (80.0-98.0); Mean Platelet Volume 9.6 fL (9.4-12.4); Monocytes Absolute Auto 0.8 X10*3/uL (0.1-1.2); Monocytes Percent Auto 7.1 % (2-11); Neutrophils Absolute Auto 9.8 x10*3/uL (2.0-8.3); Neutrophils Percent Auto 82.8 % (45-73); Platelet Count 277 X10*3/uL (160-400); Red Blood Count 5.04 X10*6/uL (4.60-5.80); Red Cell Distribution Width 12.9 % (11.0-16.0); White Blood Count 11.8 X10*3/uL (4.8-10.8)
--- NOTE | 2022-08-04 10:25 | PC.NURSE ---
pt received ambulating to room. A/O x 3. Pt was d/c from [facility] ED at 1am, woke up, did not check sugar, did not take insulin. Arrived a work vomiting and dehydrated. POC 400 here. IV started to LAC with #20 angiocath. 1L NS up. Seen by PA. Will continue to monitor.
[2022-08-04] MEDS: ondansetron HCL 4 MG/2 ML VIAL IVPUSH (10:33)
[2022-08-04] MEDS: Magnesium Hydrox/Alum Hydrox 30 ML ORAL.SUSP PO (10:33)
[2022-08-04] MEDS: Famotidine/PF 20 MG/2 ML VIAL IVPUSH (10:33)
[2022-08-04] MEDS: Ketorolac Tromethamine 15 MG/ML VIAL IVPUSH (10:33)
[2022-08-04] MEDS: Lidocaine HCl Viscous 2 % 15 ML SOLUTION MUCOUS MEM (10:33)
[2022-08-04 10:36] LABS: VBG Base Excess -1.7 mmol/L; VBG HCO3 24 mmol/L (22-26); VBG pCO2 43 mmHg; VBG pH 7.34 (7.32-7.43); VBG pO2 37 mmHg
[2022-08-04] MEDS: Lactated Ringers 1,000 ML 999 ML IV ×2 (10:36→11:15)
[2022-08-04 10:38] LABS: Venous Blood Gas Refer to POC result
[2022-08-04] MEDS: diphenhydrAMINE HCL 50 MG/ML VIAL 25 MG IVPUSH (10:40)
[2022-08-04 10:45] LABS: Alanine Aminotransferase 13 U/L (0-40); Albumin Level 4.2 g/dL (3.5-5.0); Alkaline Phosphatase 74 U/L (39-117); Anion Gap 19 (12-20); Aspartate Amino Transferase 14 U/L (5-37); Bilirubin Direct 0.3 mg/dL (0.0-0.5); Blood Urea Nitrogen 16 mg/dL (9-16); Carbon Dioxide 26 mmol/L (22-29); Chloride 91 mmol/L (96-108); Creatinine Clr Calc Pharmacy 77.5; Estimated Glomerular Filt Rate > 60; Glucose Random 417 mg/dL (60-115); Lipase 14 U/L (8-78); Magnesium 1.9 mg/dL (1.6-2.6); Potassium 4.2 mmol/L (3.3-5.1); Sodium 132 mmol/L (135-145); Total Protein 6.8 g/dL (6.5-8.0)
[2022-08-04] MEDS: Insulin Regular, Human 100 UNIT/ML 3 ML VIAL IVPUSH (11:13)
[2022-08-04 11:50] VITALS: BP 149/81; PULSE 94; RESP 16; O2SAT 100
[2022-08-04 11:59] LABS: Appearance Urine Clear; Color Urine Yellow; Glucose Urine UA >=1000 mg/dL (Negative); Leukocyte Esterase Urine Negative (Negative); Nitrite Urine Negative (Negative); PH 6.5 (5.0-9.0); Specific Gravity - Urine >= 1.030 (1.005-1.025); UMIC TRIGGER UACC YES; Urine Blood Negative (Negative); Urine Ketones >=160 mg/dL (Negative); Urine Protein Negative (Neg-Trace)
[2022-08-04 12:04] LABS: Bacteria Urine None Seen (None Seen); Hyaline Casts Urine 0-2 /LPF (0-2); RBC Urine 0-2 /HPF (0-2); Squamous Epithelial Cell Urine 0-2 /HPF (0-2); WBC Urine 0-5 /HPF (0-5)
[2022-08-04 12:12] LABS: Amphetamine Screen Urine Not Detected (Not Detect); Barbiturates, Urine Not Detected (Not Detect); Benzodiazepines Screen Urine Not Detected (Not Detect); Cannabinoid Screen Urine POSITIVE (Not Detect); Cocaine Screen Urine Not Detected (Not Detect); Fentanyl, urine Not Detected (Not Detect); Opiate Screen Urine POSITIVE (Not Detect); Phencyclidine Screen Urine Not Detected (Not Detect)
[2022-08-04 13:45] LABS: Glucose, Whole Blood 286 mg/dL (60-115)
[2022-08-04] MEDS: Morphine Sulfate 2 MG/ML CARTRIDGE 1 MG IVPUSH (13:50)
[2022-08-04 14:02] LABS: Acetone, serum QL Small (Negative)
--- NOTE | 2022-08-04 14:02 | MHC.EDTECH ---
patient refused 1400 vitals RN aware
[2022-08-04] MEDS: Metoclopramide HCl 10 MG/2 ML VIAL IVPUSH (17:11)
== END 2022-08-04 17:40 | disposition home or self-care (01) ==
PROVIDERS: Physician Assistant; Emergency Provider Student in an Organized Health Care Education/Training Program
DX: E86.0 Dehydration (principal); E11.65 Type 2 diabetes mellitus with hyperglycemia; Z79.899 Other long term (current) drug therapy; Z79.4 Long term (current) use of insulin
CPT/HCPCS: 36415; 80048; 80076; 80307; 81001; 82009; 82803; 82947; 83690; 83735; 85025; 96361; 96374; 96375; 99284; J1200; J1885; J2270; J2405; J2765

== ENCOUNTER 2022-08-23 11:01 | Emergency (ER) | payer OTHER, SELFPAY ==
--- NOTE | 2022-08-23 11:46 | ECG_ITS ---
Test Reason : vomiting,sweating Blood Pressure : / mmHG Vent. Rate : 050 BPM Atrial Rate : 050 BPM P-R Int : 146 ms QRS Dur : 082 ms QT Int : 434 ms P-R-T Axes : 041 022 025 degrees QTc Int : 395 ms Sinus bradycardia with marked sinus arrhythmia Otherwise normal ECG When compared with ECG of 16-JUN-2022 20:15, No significant change was found Referred By: Moshe Worthy Electronically Signed By:YANI HERNANDEZ MD
[2022-08-23 11:50] VITALS: BP 165/101; PULSE 66; RESP 18; TEMP 36.7; O2SAT 96; BMI 26.6
--- NOTE | 2022-08-23 11:50 | ED.GENADULT ---
HPI - General Adult General Chief complaint: Abdominal Pain <ROSAURA Garg - Last Filed: 08/23/22 19:21> Stated complaint: vomiting <ROSAURA Garg - Last Filed: 08/23/22 19:21> Time Seen by Provider: 08/23/22 11:54 <ROSAURA Garg - Last Filed: 08/23/22 19:21> Source: patient <Anjana Claros NP - Last Filed: 08/23/22 16:44> Mode of arrival: ambulatory <Anjana Claros NP - Last Filed: 08/23/22 16:44> Limitations: no limitations <Anjana Claros NP - Last Filed: 08/23/22 16:44> History of Present Illness HPI narrative: 27-year-old male with a past medical history of diabetes, DKA, diabetic gastroparesis, 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 forgot to take his insulin today. No recent illnesses or travel <Anjana Claros NP - Last Filed: 08/23/22 16:44> Related Data Home medications: Home Medications Medication Instructions Recorded Confirmed sertraline 25 mg tablet 25 mg PO DAILY 12/28/21 06/17/22 pantoprazole 40 mg tablet,delayed 1 tab PO DAILY 03/15/22 06/17/22 release insulin lispro protamine-lispro 60 unit subcut BID 04/30/22 06/17/22 100 unit/mL (75-25) subcutaneous pen Previous Rx's Medication Instructions Recorded ondansetron HCl 8 mg tablet 8 mg PO Q8H PRN nausea and 06/19/22 vomiting 5 days #15 tabs ondansetron 8 mg disintegrating 8 mg PO Q8H PRN nausea and 07/11/22 tablet vomiting 5 days #15 tabs promethazine 25 mg rectal 25 mg LA Q6H PRN nausea and 08/03/22 suppository (Promethegan) vomiting #20 ea promethazine 25 mg rectal 25 mg LA Q6H PRN nausea and 08/23/22 suppository vomiting #12 ea <ROSAURA Garg - Last Filed: 08/23/22 19:21> Allergies/adverse reactions: Allergies Allergy/AdvReac Type Severity Reaction Status Date / Time passion fruit [PASSION FRUIT] Allergy Unknown UNK Verified 08/03/22 16:35 <ROSAURA Garg - Last Filed: 08/23/22 19:21> Review of Systems Review of Systems: Yes all other systems are reviewed and are negative <Anjana Claros NP - Last Filed: 08/23/22 16:44> Constitutional: Constitutional: Reports no additional constitutional complaints, Denies body ache(s), Denies chills, Denies fever(s), Denies headache(s) and Denies weakness <Anjana Claros NP - Last Filed: 08/23/22 16:44> Eyes: Eyes: Reports no additional eye complaints and Denies change in vision <Anjana Claros NP - Last Filed: 08/23/22 16:44> ENT: Reports system reviewed and no additional complaints, except as documented, Denies dizziness, Denies headache(s), Denies nasal congestion, Denies nasal discharge and Denies neck pain <Anjana Claros NP - Last Filed: 08/23/22 16:44> Cardiovascular: Cardiovascular: Reports no additional cardiovascular complaints, Denies chest pain, Denies leg edema and Denies dyspnea <Anjana Claros NP - Last Filed: 08/23/22 16:44> Respiratory: Respiratory: Reports no additional respiratory complaints, Denies cough and Denies dyspnea <Anjana Claros NP - Last Filed: 08/23/22 16:44> Gastrointestinal: Gastrointestinal: Reports no additional gastrointestinal complaints, Reports abdominal pain, Denies diarrhea, Reports nausea and Reports vomiting <Anjana Claros NP - Last Filed: 08/23/22 16:44> Genitourinary: Genitourinary: Denies urinary incontinence <Anjana Claros NP - Last Filed: 08/23/22 16:44> Musculoskeletal: Musculoskeletal: Reports no additional musculoskeletal complaints, Denies back pain, Denies arthralgias, Denies joint swelling, Denies neck pain, Denies numbness and Denies tingling <Anjana Clraos NP - Last Filed: 08/23/22 16:44> Integumentary/Breasts: Skin/Breast: Reports system reviewed and no additional complaints, except as docu and Denies rash <Anjana Claros NP - Last Filed: 08/23/22 16:44> Neurologic: Reports system reviewed and no additional complaints, except as documented, Denies dizziness, Denies headache(s), Denies numbness, Denies tingling and Denies weakness <Anjana Claros NP - Last Filed: 08/23/22 16:44> [facility] Past Medical History Attestation statement: The following information was validated with the patient. <Anjana Claros NP - Last Filed: 08/23/22 16:44> Source: old records reviewed and nursing notes reviewed <Anjana Claros NP - Last Filed: 08/23/22 16:44> Medical History: Medical History Cyclical vomiting Diabetes Diabetic gastroparesis Diabetic keto-acidosis Esophageal ulcer Gastroparesis Leukocytosis Noncompliance with medication regimen Persistent hyperactive cannabis intoxication delirium <ROSAURA Garg - Last Filed: 08/23/22 19:21> Surgical History: Surgical History No pertinent past surgical history <ROSAURA Garg - Last Filed: 08/23/22 19:21> Family History Family History: Family History Other No family history of coronary artery disease <ROSAURA Garg - Last Filed: 08/23/22 19:21> Social History Social History: Social History Household Members: None Housing: Apartment Do you presently have visiting nurse or other home services: No Alcohol intake: never Patient Tobacco Use Status: Never used Tobacco Smoked in Last 30 Days: No Use of substances other than those prescribed or required for medical reasons: Yes Substance Use Type: Marijuana Advance Directives: Yes Advance Directives on File: Yes Advance Directives Date on File: 01/22/21 service: No Current occupational status: employed <ROSAURA Garg - Last Filed: 08/23/22 19:21> Physical Exam ED Vital Signs: Vital Signs - 24 hr 08/23/22 11:50 08/23/22 13:58 08/23/22 16:00 Temperature 98.1 F 98.7 F 97.4 F Pulse Rate 66 87 80 Respiratory Rate 18 14 16 Blood Pressure 165/101 H 125/66 111/75 Pulse Oximetry 96 99 96 Oxygen Delivery Method Room Air Room Air Room Air BMI result Body Mass Index 26.6 <ROSAURA Garg - Last Filed: 08/23/22 19:21> Vital Signs - 24 hr 08/23/22 11:50 08/23/22 13:58 08/23/22 16:00 Temperature 98.1 F 98.7 F 97.4 F Pulse Rate 66 87 80 Respiratory Rate 18 14 16 Blood Pressure 165/101 H 125/66 111/75 Pulse Oximetry 96 99 96 Oxygen Delivery Method Room Air Room Air Room Air BMI result Body Mass Index 26.6 <Anjana Claros NP - Last Filed: 08/23/22 16:44> Const General: cooperative, healthy appearing, comfortable and no acute distress <Anjana Claros NP - Last Filed: 08/23/22 16:44> Orientation/consciousness: patient oriented x3 <Anjana Claros NP - Last Filed: 08/23/22 16:44> Limitations: no limitations <Anjana Claros NP - Last Filed: 08/23/22 16:44> HENMT Head: Yes normal to inspection <Anjana Claros NP - Last Filed: 08/23/22 16:44> Ears: hearing grossly normal bilaterally <Anjana Claros NP - Last Filed: 08/23/22 16:44> Eyes General: appearance normal, both eyes and all related structures <Anjana Claros NP - Last Filed: 08/23/22 16:44> Pupils: Equal, round and reactive pupils present <Anjana Claros NP - Last Filed: 08/23/22 16:44> Neck Neck: Yes normal visual inspection, Yes full ROM, Yes no lymphadenopathy and Yes no meningeal signs <Anjana Claros NP - Last Filed: 08/23/22 16:44> Chest Chest palpation & inspection: normal inspection of the chest <Anjana Claros NP - Last Filed: 08/23/22 16:44> Resp Effort & Inspection: normal respiratory effort <Anjana Claros NP - Last Filed: 08/23/22 16:44> Auscultation: clear to auscultation bilaterally <Anjana Claros NP - Last Filed: 08/23/22 16:44> Cardio Rate: regular rate <Anjana Claros NP - Last Filed: 08/23/22 16:44> Rhythm: regular rhythm <Anjana Claros NP - Last Filed: 08/23/22 16:44> Peripheral pulses: Peripheral pulses 2+ throughout <Anjana Claros NP - Last Filed: 08/23/22 16:44> GI Inspection: Yes normal to inspection <Anjana Claros NP - Last Filed: 08/23/22 16:44> Palpation (GI): Soft to palpation and nontender <Anjana Claros NP - Last Filed: 08/23/22 16:44> Auscultation: normal bowel sounds <Anjana Claros NP - Last Filed: 08/23/22 16:44> General: Yes no CVA tenderness <Anjana Claros NP - Last Filed: 08/23/22 16:44> Back/Spine/Pelvis Back: no CVA tenderness <Anjana Claros NP - Last Filed: 08/23/22 16:44> Thoracic/Lumbar Spine: thoracic and lumbar spine normal to inspection <Anjana Claros NP - Last Filed: 08/23/22 16:44> Skin General skin exam: no rashes or lesions noted <Anjana Claros NP - Last Filed: 08/23/22 16:44> Neuro General: patient oriented x3, moves all extremities and no meningeal signs <Anjana Claros NP - Last Filed: 08/23/22 16:44> Cranial nerves: Yes Equal, round and reactive pupils present <Anjana Claros NP - Last Filed: 08/23/22 16:44> Cognition (Neuro): normal cognition <Anjana Claros NP - Last Filed: 08/23/22 16:44> Gait exam (Neuro): Normal gait present <Anjana Claros NP - Last Filed: 08/23/22 16:44> Extrem General: Yes normal to inspection, Yes no pedal edema and Yes no calf tenderness <Anjana Claros NP - Last Filed: 08/23/22 16:44> Course Course Course Narrative: RME: 27 yold male with history diabetes presents to ED for vomiting and sweating. Patient states fingerstick this morning was 126. POC glucose in the ED was 414. Labs fluid EKG ordered. Charge nurse informed for patient to be brought to the quickly as possible due to history of DKA. <ROSAURA Garg - Last Filed: 08/23/22 19:21> Reevaluation(s) Reevaluation #1: 1415- Labs show mild hyperglycemia with no acidosis. All other labs unremarkable. Likely gastroporesis/cyclic vomiting syndrome. Low concern for acute abdominal pathology. Patient with multiple requests for IV morphine for his upper abdominal pain. Has not had any additional vomiting since being here. Still c/o nausea. Will give additional antiemetic, GI cocktail, famotidine and re-assess. <Anjana Claros NP - Last Filed: 08/23/22 16:44> Reevaluation #2: 1640-Patient feeling improved. Has had 2 8 ounce apple juices with no additional vomiting episodes. Will discharge home with antiemetic. Reviewed worrisome signs/symptoms with patient and when to seek additional care. Comfortable with plan for discharge home. <Anjana Claros NP - Last Filed: 08/23/22 16:44> Medications Administered Discontinued Medications Generic Name Dose Route Start Last Admin Trade Name Freq PRN Reason Stop Dose Admin Al Hydroxide/Mg Hydroxide 30 ml 08/23/22 14:09 08/23/22 14:47 Magnesium Hydrox/Alum Hydrox 30 Ml Oral.Susp PO 08/23/22 14:10 30 ml ONCE ONE Administration Diphenhydramine HCl 25 mg 08/23/22 14:09 08/23/22 14:46 Diphenhydramine Hcl 50 Mg/Ml Vial IVPUSH 08/23/22 14:10 25 mg ONCE ONE Administration Famotidine 20 mg 08/23/22 14:09 08/23/22 14:47 Famotidine/Pf 20 Mg/2 Ml Vial IVPUSH 08/23/22 14:10 20 mg ONCE ONE Administration Sodium Chloride 1,000 mls @ 999 mls/hr 08/23/22 11:49 08/23/22 13:53 Ns IV 08/23/22 12:49 Infused .Q1H1M STA Infusion Sodium Chloride 1,000 mls @ 999 mls/hr 08/23/22 11:49 08/23/22 13:53 Ns IV 08/23/22 12:49 Infused .Q1H1M STA Infusion Sodium Chloride 1,000 mls @ 999 mls/hr 08/23/22 11:50 08/23/22 13:53 Ns IV 08/23/22 12:50 Infused .Q1H1M STA Infusion Insulin Human Regular 7 unit 08/23/22 12:42 08/23/22 13:02 Insulin Regular, Human 100 Unit/Ml 3 Ml Vial 0.1 unit/kg (7 unit) 08/23/22 12:43 7 unit IVPUSH Administration ONCE ONE Ketorolac Tromethamine 30 mg 08/23/22 11:59 08/23/22 12:22 Ketorolac Tromethamine 30 Mg/Ml Vial IVPUSH 08/23/22 12:00 30 mg ONCE ONE Administration Lidocaine HCl 15 ml 08/23/22 14:09 08/23/22 14:47 Lidocaine Hcl Viscous 2 % 15 Ml Solution MUCOUS MEM 08/23/22 14:10 15 ml ONCE ONE Administration Metoclopramide HCl 10 mg 08/23/22 14:09 08/23/22 14:47 Metoclopramide Hcl 10 Mg/2 Ml Vial IVPUSH 08/23/22 14:10 10 mg ONCE ONE Administration Ondansetron HCl 4 mg 08/23/22 11:59 08/23/22 12:23 Ondansetron Hcl 4 Mg/2 Ml Vial IVPUSH 08/23/22 12:00 4 mg ONCE ONE Administration <ROSAURA Garg - Last Filed: 08/23/22 19:21> Medications Administered Discontinued Medications Generic Name Dose Route Start Last Admin Trade Name Roger PRN Reason Stop Dose Admin Al Hydroxide/Mg Hydroxide 30 ml 08/23/22 14:09 08/23/22 14:47 Magnesium Hydrox/Alum Hydrox 30 Ml Oral.Susp PO 08/23/22 14:10 30 ml ONCE ONE Administration Diphenhydramine HCl 25 mg 08/23/22 14:09 08/23/22 14:46 Diphenhydramine Hcl 50 Mg/Ml Vial IVPUSH 08/23/22 14:10 25 mg ONCE ONE Administration Famotidine 20 mg 08/23/22 14:09 08/23/22 14:47 Famotidine/Pf 20 Mg/2 Ml Vial IVPUSH 08/23/22 14:10 20 mg ONCE ONE Administration Sodium Chloride 1,000 mls @ 999 mls/hr 08/23/22 11:49 08/23/22 13:53 Ns IV 08/23/22 12:49 Infused .Q1H1M STA Infusion Sodium Chloride 1,000 mls @ 999 mls/hr 08/23/22 11:49 08/23/22 13:53 Ns IV 08/23/22 12:49 Infused .Q1H1M STA Infusion Sodium Chloride 1,000 mls @ 999 mls/hr 08/23/22 11:50 08/23/22 13:53 Ns IV 08/23/22 12:50 Infused .Q1H1M STA Infusion Insulin Human Regular 7 unit 08/23/22 12:42 08/23/22 13:02 Insulin Regular, Human 100 Unit/Ml 3 Ml Vial 0.1 unit/kg (7 unit) 08/23/22 12:43 7 unit IVPUSH Administration ONCE ONE Ketorolac Tromethamine 30 mg 08/23/22 11:59 08/23/22 12:22 Ketorolac Tromethamine 30 Mg/Ml Vial IVPUSH 08/23/22 12:00 30 mg ONCE ONE Administration Lidocaine HCl 15 ml 08/23/22 14:09 08/23/22 14:47 Lidocaine Hcl Viscous 2 % 15 Ml Solution MUCOUS MEM 08/23/22 14:10 15 ml ONCE ONE Administration Metoclopramide HCl 10 mg 08/23/22 14:09 08/23/22 14:47 Metoclopramide Hcl 10 Mg/2 Ml Vial IVPUSH 08/23/22 14:10 10 mg ONCE ONE Administration Ondansetron HCl 4 mg 08/23/22 11:59 08/23/22 12:23 Ondansetron Hcl 4 Mg/2 Ml Vial IVPUSH 08/23/22 12:00 4 mg ONCE ONE Administration <Anjana Claros NP - Last Filed: 08/23/22 16:44> Medical Decision Making Medical Decision Making MDM Narrative: 27-year-old male with a past medical history of diabetes, DKA, diabetic gastroparesis, 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 Abdomen soft/nontender. Doubt intraabdominal pathology. BS in triage 414 Will check labs, UA, EKG, COVID screen. WIll give IVF, antiemetic, zofran <Anjana Claros NP - Last Filed: 08/23/22 16:44> Differential Diagnosis Differential Diagnoses: The differential diagnosis associated with the presentation includes <Anjana Claros NP - Last Filed: 08/23/22 16:44> DKA, gastroporesis <Anjana Claros NP - Last Filed: 08/23/22 16:44> Lab Data MDM Lab Attestation statement: I reviewed the patient's lab results. <Anjana Claros NP - Last Filed: 08/23/22 16:44> Result Diagrams: 08/23/22 12:04 08/23/22 12:04 <ROSAURA Garg - Last Filed: 08/23/22 19:21> Labs: Lab Results 08/23/22 08/23/22 08/23/22 Range/Units 11:48 12:04 12:04 WBC 9.9 (4.8-10.8) X10*3/uL RBC 4.57 L (4.60-5.80) X10*6/uL Hgb 13.4 L (14.0-18.0) g/dl Hct 39.7 L (42.0-52.0) % MCV 86.9 (80.0-98.0) fL MCH 29.3 (27.0-33.0) pg MCHC 33.8 (31.0-36.0) g/dl RDW 12.6 (11.0-16.0) % Plt Count 259 (160-400) X10*3/uL MPV 9.6 (9.4-12.4) fL Immature Gran % (Auto) 0.4 (0.0-0.4) % Neut % (Auto) 68.3 (45-73) % Lymph % (Auto) 20.8 (20-40) % [place] % (Auto) 9.3 (2-11) % Eos % (Auto) 0.8 (0-4) % Baso % (Auto) 0.4 (0-2) % Lymph # (Auto) 2.1 (1.2-4.9) X10*3/uL [place] # (Auto) 0.9 (0.1-1.2) X10*3/uL Eos # (Auto) 0.1 (0.0-0.4) X10*3/uL Baso # (Auto) 0.0 (0.0-0.2) X10*3/uL Abs Immat Gran (auto) 0.04 H (0.00-0.03) X10*3/uL Absolute Neuts (auto) 6.8 (2.0-8.3) x10*3/uL Absolute Nucleated RBC 0.000 (0.0-0.012) X10*3/uL Nucleated RBC % (auto) 0.0 (0.0-0.2) /100WBC PT (10.0-13.1) SEC INR (0.9-1.1) APTT (26.0-36.4) SEC Sodium 139 (135-145) mmol/L Potassium 4.1 (3.3-5.1) mmol/L Chloride 100 (96-108) mmol/L Carbon Dioxide 31 H (22-29) mmol/L Anion Gap 12 (12-20) BUN 13 (9-16) mg/dL Creatinine 1.21 (0.5-1.4) mg/dL Estim Creat Clear Calc 83.4 Estimated GFR > 60 POC Glucose 414 H* (60-115) mg/dL Random Glucose 424 H* (60-115) mg/dL Calcium 9.9 D (8.4-10.2) mg/dL Total Bilirubin 0.3 (0.0-1.0) mg/dL AST 12 (5-37) U/L ALT 10 (0-40) U/L Alkaline Phosphatase 58 (39-117) U/L Troponin I High Sens (<3.5-35.0) ng/L Total Protein 6.6 (6.5-8.0) g/dL Albumin 4.1 (3.5-5.0) g/dL Lipase 25 (8-78) U/L Urine Color Urine Appearance Urine pH (5.0-9.0) Ur Specific [place] (1.005-1.025) Urine Protein (Neg-Trace) mg/dL Urine Glucose (UA) (Negative) mg/dL Urine Ketones (Negative) mg/dL Urine Blood (Negative) Urine Nitrite (Negative) Ur Leukocyte Esterase (Negative) Urine RBC (0-2) /HPF Urine WBC (0-5) /HPF Ur Squamous Epith Cells (0-2) /HPF Urine Bacteria (None Seen) Hyaline Casts (0-2) /LPF Acetone, Qual Negative (Negative) Influenza Type A (PCR) (Negative) Influenza Type B (PCR) (Negative) RSV RNA Qual (PCR) (Negative) SARS-CoV-2 RNA (RT-PCR) (Negative) 08/23/22 08/23/22 08/23/22 Range/Units 12:04 12:04 12:04 WBC (4.8-10.8) X10*3/uL RBC (4.60-5.80) X10*6/uL Hgb (14.0-18.0) g/dl Hct (42.0-52.0) % MCV (80.0-98.0) fL MCH (27.0-33.0) pg MCHC (31.0-36.0) g/dl RDW (11.0-16.0) % Plt Count (160-400) X10*3/uL MPV (9.4-12.4) fL Immature Gran % (Auto) (0.0-0.4) % Neut % (Auto) (45-73) % Lymph % (Auto) (20-40) % [place] % (Auto) (2-11) % Eos % (Auto) (0-4) % Baso % (Auto) (0-2) % Lymph # (Auto) (1.2-4.9) X10*3/uL [place] # (Auto) (0.1-1.2) X10*3/uL Eos # (Auto) (0.0-0.4) X10*3/uL Baso # (Auto) (0.0-0.2) X10*3/uL Abs Immat Gran (auto) (0.00-0.03) X10*3/uL Absolute Neuts (auto) (2.0-8.3) x10*3/uL Absolute Nucleated RBC (0.0-0.012) X10*3/uL Nucleated RBC % (auto) (0.0-0.2) /100WBC PT 10.1 (10.0-13.1) SEC INR 0.9 (0.9-1.1) APTT 31.4 (26.0-36.4) SEC Sodium (135-145) mmol/L Potassium (3.3-5.1) mmol/L Chloride (96-108) mmol/L Carbon Dioxide (22-29) mmol/L Anion Gap (12-20) BUN (9-16) mg/dL Creatinine (0.5-1.4) mg/dL Estim Creat Clear Calc Estimated GFR POC Glucose (60-115) mg/dL Random Glucose (60-115) mg/dL Calcium (8.4-10.2) mg/dL Total Bilirubin (0.0-1.0) mg/dL AST (5-37) U/L ALT (0-40) U/L Alkaline Phosphatase (39-117) U/L Troponin I High Sens < 3.5 (<3.5-35.0) ng/L Total Protein (6.5-8.0) g/dL Albumin (3.5-5.0) g/dL Lipase (8-78) U/L Urine Color Urine Appearance Urine pH (5.0-9.0) Ur Specific [place] (1.005-1.025) Urine Protein (Neg-Trace) mg/dL Urine Glucose (UA) (Negative) mg/dL Urine Ketones (Negative) mg/dL Urine Blood (Negative) Urine Nitrite (Negative) Ur Leukocyte Esterase (Negative) Urine RBC (0-2) /HPF Urine WBC (0-5) /HPF Ur Squamous Epith Cells (0-2) /HPF Urine Bacteria (None Seen) Hyaline Casts (0-2) /LPF Acetone, Qual (Negative) Influenza Type A (PCR) NEGATIVE (Negative) Influenza Type B (PCR) NEGATIVE (Negative) RSV RNA Qual (PCR) NEGATIVE (Negative) SARS-CoV-2 RNA (RT-PCR) NEGATIVE (Negative) 08/23/22 08/23/22 08/23/22 Range/Units 12:27 14:03 16:08 WBC (4.8-10.8) X10*3/uL RBC (4.60-5.80) X10*6/uL Hgb (14.0-18.0) g/dl Hct (42.0-52.0) % MCV (80.0-98.0) fL MCH (27.0-33.0) pg MCHC (31.0-36.0) g/dl RDW (11.0-16.0) % Plt Count (160-400) X10*3/uL MPV (9.4-12.4) fL Immature Gran % (Auto) (0.0-0.4) % Neut % (Auto) (45-73) % Lymph % (Auto) (20-40) % [place] % (Auto) (2-11) % Eos % (Auto) (0-4) % Baso % (Auto) (0-2) % Lymph # (Auto) (1.2-4.9) X10*3/uL [place] # (Auto) (0.1-1.2) X10*3/uL Eos # (Auto) (0.0-0.4) X10*3/uL Baso # (Auto) (0.0-0.2) X10*3/uL Abs Immat Gran (auto) (0.00-0.03) X10*3/uL Absolute Neuts (auto) (2.0-8.3) x10*3/uL Absolute Nucleated RBC (0.0-0.012) X10*3/uL Nucleated RBC % (auto) (0.0-0.2) /100WBC PT (10.0-13.1) SEC INR (0.9-1.1) APTT (26.0-36.4) SEC Sodium (135-145) mmol/L Potassium (3.3-5.1) mmol/L Chloride (96-108) mmol/L Carbon Dioxide (22-29) mmol/L Anion Gap (12-20) BUN (9-16) mg/dL Creatinine (0.5-1.4) mg/dL Estim Creat Clear Calc Estimated GFR POC Glucose 70 172 H (60-115) mg/dL Random Glucose (60-115) mg/dL Calcium (8.4-10.2) mg/dL Total Bilirubin (0.0-1.0) mg/dL AST (5-37) U/L ALT (0-40) U/L Alkaline Phosphatase (39-117) U/L Troponin I High Sens (<3.5-35.0) ng/L Total Protein (6.5-8.0) g/dL Albumin (3.5-5.0) g/dL Lipase (8-78) U/L Urine Color Yellow Urine Appearance Clear Urine pH 7.5 (5.0-9.0) Ur Specific [place] 1.025 (1.005-1.025) Urine Protein Negative (Neg-Trace) mg/dL Urine Glucose (UA) >=1000 H (Negative) mg/dL Urine Ketones Negative (Negative) mg/dL Urine Blood Negative (Negative) Urine Nitrite Negative (Negative) Ur Leukocyte Esterase Negative (Negative) Urine RBC 0-2 (0-2) /HPF Urine WBC 0-5 (0-5) /HPF Ur Squamous Epith Cells 0-2 (0-2) /HPF Urine Bacteria None Seen (None Seen) Hyaline Casts 0-2 (0-2) /LPF Acetone, Qual (Negative) Influenza Type A (PCR) (Negative) Influenza Type B (PCR) (Negative) RSV RNA Qual (PCR) (Negative) SARS-CoV-2 RNA (RT-PCR) (Negative) <ROSAURA Garg - Last Filed: 08/23/22 19:21> Lab Results 08/23/22 08/23/22 08/23/22 Range/Units 11:48 12:04 12:04 WBC 9.9 (4.8-10.8) X10*3/uL RBC 4.57 L (4.60-5.80) X10*6/uL Hgb 13.4 L (14.0-18.0) g/dl Hct 39.7 L (42.0-52.0) % MCV 86.9 (80.0-98.0) fL MCH 29.3 (27.0-33.0) pg MCHC 33.8 (31.0-36.0) g/dl RDW 12.6 (11.0-16.0) % Plt Count 259 (160-400) X10*3/uL MPV 9.6 (9.4-12.4) fL Immature Gran % (Auto) 0.4 (0.0-0.4) % Neut % (Auto) 68.3 (45-73) % Lymph % (Auto) 20.8 (20-40) % [place] % (Auto) 9.3 (2-11) % Eos % (Auto) 0.8 (0-4) % Baso % (Auto) 0.4 (0-2) % Lymph # (Auto) 2.1 (1.2-4.9) X10*3/uL [place] # (Auto) 0.9 (0.1-1.2) X10*3/uL Eos # (Auto) 0.1 (0.0-0.4) X10*3/uL Baso # (Auto) 0.0 (0.0-0.2) X10*3/uL Abs Immat Gran (auto) 0.04 H (0.00-0.03) X10*3/uL Absolute Neuts (auto) 6.8 (2.0-8.3) x10*3/uL Absolute Nucleated RBC 0.000 (0.0-0.012) X10*3/uL Nucleated RBC % (auto) 0.0 (0.0-0.2) /100WBC PT (10.0-13.1) SEC INR (0.9-1.1) APTT (26.0-36.4) SEC Sodium 139 (135-145) mmol/L Potassium 4.1 (3.3-5.1) mmol/L Chloride 100 (96-108) mmol/L Carbon Dioxide 31 H (22-29) mmol/L Anion Gap 12 (12-20) BUN 13 (9-16) mg/dL Creatinine 1.21 (0.5-1.4) mg/dL Estim Creat Clear Calc 83.4 Estimated GFR > 60 POC Glucose 414 H* (60-115) mg/dL Random Glucose 424 H* (60-115) mg/dL Calcium 9.9 D (8.4-10.2) mg/dL Total Bilirubin 0.3 (0.0-1.0) mg/dL AST 12 (5-37) U/L ALT 10 (0-40) U/L Alkaline Phosphatase 58 (39-117) U/L Troponin I High Sens (<3.5-35.0) ng/L Total Protein 6.6 (6.5-8.0) g/dL Albumin 4.1 (3.5-5.0) g/dL Lipase 25 (8-78) U/L Urine Color Urine Appearance Urine pH (5.0-9.0) Ur Specific [place] (1.005-1.025) Urine Protein (Neg-Trace) mg/dL Urine Glucose (UA) (Negative) mg/dL Urine Ketones (Negative) mg/dL Urine Blood (Negative) Urine Nitrite (Negative) Ur Leukocyte Esterase (Negative) Urine RBC (0-2) /HPF Urine WBC (0-5) /HPF Ur Squamous Epith Cells (0-2) /HPF Urine Bacteria (None Seen) Hyaline Casts (0-2) /LPF Acetone, Qual Negative (Negative) Influenza Type A (PCR) (Negative) Influenza Type B (PCR) (Negative) RSV RNA Qual (PCR) (Negative) SARS-CoV-2 RNA (RT-PCR) (Negative) 08/23/22 08/23/22 08/23/22 Range/Units 12:04 12:04 12:04 WBC (4.8-10.8) X10*3/uL RBC (4.60-5.80) X10*6/uL Hgb (14.0-18.0) g/dl Hct (42.0-52.0) % MCV (80.0-98.0) fL MCH (27.0-33.0) pg MCHC (31.0-36.0) g/dl RDW (11.0-16.0) % Plt Count (160-400) X10*3/uL MPV (9.4-12.4) fL Immature Gran % (Auto) (0.0-0.4) % Neut % (Auto) (45-73) % Lymph % (Auto) (20-40) % [place] % (Auto) (2-11) % Eos % (Auto) (0-4) % Baso % (Auto) (0-2) % Lymph # (Auto) (1.2-4.9) X10*3/uL [place] # (Auto) (0.1-1.2) X10*3/uL Eos # (Auto) (0.0-0.4) X10*3/uL Baso # (Auto) (0.0-0.2) X10*3/uL Abs Immat Gran (auto) (0.00-0.03) X10*3/uL Absolute Neuts (auto) (2.0-8.3) x10*3/uL Absolute Nucleated RBC (0.0-0.012) X10*3/uL Nucleated RBC % (auto) (0.0-0.2) /100WBC PT 10.1 (10.0-13.1) SEC INR 0.9 (0.9-1.1) APTT 31.4 (26.0-36.4) SEC Sodium (135-145) mmol/L Potassium (3.3-5.1) mmol/L Chloride (96-108) mmol/L Carbon Dioxide (22-29) mmol/L Anion Gap (12-20) BUN (9-16) mg/dL Creatinine (0.5-1.4) mg/dL Estim Creat Clear Calc Estimated GFR POC Glucose (60-115) mg/dL Random Glucose (60-115) mg/dL Calcium (8.4-10.2) mg/dL Total Bilirubin (0.0-1.0) mg/dL AST (5-37) U/L ALT (0-40) U/L Alkaline Phosphatase (39-117) U/L Troponin I High Sens < 3.5 (<3.5-35.0) ng/L Total Protein (6.5-8.0) g/dL Albumin (3.5-5.0) g/dL Lipase (8-78) U/L Urine Color Urine Appearance Urine pH (5.0-9.0) Ur Specific [place] (1.005-1.025) Urine Protein (Neg-Trace) mg/dL Urine Glucose (UA) (Negative) mg/dL Urine Ketones (Negative) mg/dL Urine Blood (Negative) Urine Nitrite (Negative) Ur Leukocyte Esterase (Negative) Urine RBC (0-2) /HPF Urine WBC (0-5) /HPF Ur Squamous Epith Cells (0-2) /HPF Urine Bacteria (None Seen) Hyaline Casts (0-2) /LPF Acetone, Qual (Negative) Influenza Type A (PCR) NEGATIVE (Negative) Influenza Type B (PCR) NEGATIVE (Negative) RSV RNA Qual (PCR) NEGATIVE (Negative) SARS-CoV-2 RNA (RT-PCR) NEGATIVE (Negative) 08/23/22 08/23/22 08/23/22 Range/Units 12:27 14:03 16:08 WBC (4.8-10.8) X10*3/uL RBC (4.60-5.80) X10*6/uL Hgb (14.0-18.0) g/dl Hct (42.0-52.0) % MCV (80.0-98.0) fL MCH (27.0-33.0) pg MCHC (31.0-36.0) g/dl RDW (11.0-16.0) % Plt Count (160-400) X10*3/uL MPV (9.4-12.4) fL Immature Gran % (Auto) (0.0-0.4) % Neut % (Auto) (45-73) % Lymph % (Auto) (20-40) % [place] % (Auto) (2-11) % Eos % (Auto) (0-4) % Baso % (Auto) (0-2) % Lymph # (Auto) (1.2-4.9) X10*3/uL [place] # (Auto) (0.1-1.2) X10*3/uL Eos # (Auto) (0.0-0.4) X10*3/uL Baso # (Auto) (0.0-0.2) X10*3/uL Abs Immat Gran (auto) (0.00-0.03) X10*3/uL Absolute Neuts (auto) (2.0-8.3) x10*3/uL Absolute Nucleated RBC (0.0-0.012) X10*3/uL Nucleated RBC % (auto) (0.0-0.2) /100WBC PT (10.0-13.1) SEC INR (0.9-1.1) APTT (26.0-36.4) SEC Sodium (135-145) mmol/L Potassium (3.3-5.1) mmol/L Chloride (96-108) mmol/L Carbon Dioxide (22-29) mmol/L Anion Gap (12-20) BUN (9-16) mg/dL Creatinine (0.5-1.4) mg/dL Estim Creat Clear Calc Estimated GFR POC Glucose 70 172 H (60-115) mg/dL Random Glucose (60-115) mg/dL Calcium (8.4-10.2) mg/dL Total Bilirubin (0.0-1.0) mg/dL AST (5-37) U/L ALT (0-40) U/L Alkaline Phosphatase (39-117) U/L Troponin I High Sens (<3.5-35.0) ng/L Total Protein (6.5-8.0) g/dL Albumin (3.5-5.0) g/dL Lipase (8-78) U/L Urine Color Yellow Urine Appearance Clear Urine pH 7.5 (5.0-9.0) Ur Specific [place] 1.025 (1.005-1.025) Urine Protein Negative (Neg-Trace) mg/dL Urine Glucose (UA) >=1000 H (Negative) mg/dL Urine Ketones Negative (Negative) mg/dL Urine Blood Negative (Negative) Urine Nitrite Negative (Negative) Ur Leukocyte Esterase Negative (Negative) Urine RBC 0-2 (0-2) /HPF Urine WBC 0-5 (0-5) /HPF Ur Squamous Epith Cells 0-2 (0-2) /HPF Urine Bacteria None Seen (None Seen) Hyaline Casts 0-2 (0-2) /LPF Acetone, Qual (Negative) Influenza Type A (PCR) (Negative) Influenza Type B (PCR) (Negative) RSV RNA Qual (PCR) (Negative) SARS-CoV-2 RNA (RT-PCR) (Negative) <Anjana Claros NP - Last Filed: 08/23/22 16:44> Independent Interpretation I performed an independent interpretation of an: EKG (indepedentely reviewed the ekg which shows SB with rate 50, normal pr, normal qrs, normal qt) <Anjana Claros NP - Last Filed: 08/23/22 16:44> Discharge Plan Discharge Clinical Impression: Abdominal pain, Hyperglycemia <ROSAURA Garg - Last Filed: 08/23/22 19:21> Patient Disposition: Home, Self-Care <ROSAURA Garg - Last Filed: 08/23/22 19:21> Instructions: Abdominal Pain (ED), Diabetic Hyperglycemia (ED) <ROSAURA Garg - Last Filed: 08/23/22 19:21> Additional Instructions: Your blood sugar was high and you received iv fluids and insulin which improved this Additional labs, urine testing and viral testing was negative. Take your medications as prescribed <ROSAURA Garg - Last Filed: 08/23/22 19:21> Prescriptions: New promethazine 25 mg suppository 25 mg LA Q6H PRN (Reason: nausea and vomiting) Qty: 12 0RF No Action sertraline 25 mg tablet 25 mg PO DAILY pantoprazole 40 mg tablet,delayed release (DR/EC) 1 tab PO DAILY insulin lispro protamin-lispro 100 unit/mL (75-25) insulin pen 60 unit subcut BID ondansetron HCl 8 mg tablet 8 mg PO Q8H PRN (Reason: nausea and vomiting) 5 Days Qty: 15 0RF ondansetron 8 mg tablet,disintegrating 8 mg PO Q8H PRN (Reason: nausea and vomiting) 5 Days Qty: 15 0RF promethazine [Promethegan] 25 mg suppository 25 mg LA Q6H PRN (Reason: nausea and vomiting) Qty: 20 0RF <ROSAURA Garg - Last Filed: 08/23/22 19:21> Referrals: Physician,Unknown J [Primary Care Provider] - <ROSAURA Garg - Last Filed: 08/23/22 19:21> Stand Alone Forms: Work/School Release <ROSAURA Garg Last Filed: 08/23/22 19:21> Interventions: ED Discharge Assessment Last Done: 01/16/23 17:10 <ROSAURA Garg - Last Filed: 08/23/22 19:21> Discharge Date/Time: 08/23/22 17:11 <ROSAURA Garg - Last Filed: 08/23/22 19:21>
[2022-08-23 12:08] LABS: MANUAL DIFF FLAG NO
[2022-08-23 12:10] LABS: Basophils Percent Auto 0.4 % (0-2); Eosinophils Absolute Auto 0.1 X10*3/uL (0.0-0.4); Eosinophils Percent Auto 0.8 % (0-4); Hematocrit 39.7 % (42.0-52.0); Hemoglobin 13.4 g/dl (14.0-18.0); Imm Gran Abs Auto 0.04 X10*3/uL (0.00-0.03); Imm Gran Pct Auto 0.4 % (0.0-0.4); Lymphocytes Absolute Auto 2.1 X10*3/uL (1.2-4.9); Lymphocytes Percent Auto 20.8 % (20-40); Mean Corpuscular HGB Conc 33.8 g/dl (31.0-36.0); Mean Corpuscular Hemoglobin 29.3 pg (27.0-33.0); Mean Corpuscular Volume 86.9 fL (80.0-98.0); Mean Platelet Volume 9.6 fL (9.4-12.4); Monocytes Absolute Auto 0.9 X10*3/uL (0.1-1.2); Monocytes Percent Auto 9.3 % (2-11); Neutrophils Absolute Auto 6.8 x10*3/uL (2.0-8.3); Neutrophils Percent Auto 68.3 % (45-73); Platelet Count 259 X10*3/uL (160-400); Red Blood Count 4.57 X10*6/uL (4.60-5.80); Red Cell Distribution Width 12.6 % (11.0-16.0); White Blood Count 9.9 X10*3/uL (4.8-10.8)
[2022-08-23] MEDS: 0.9 % Sodium Chloride 1,000 ML 999 ML IV ×3 (12:12→12:14)
[2022-08-23] MEDS: Ketorolac Tromethamine 30 MG/ML VIAL IVPUSH (12:22)
[2022-08-23 12:23] LABS: INTERNATIONAL NORM RATIO 0.9 (0.9-1.1); Prothrombin Time 10.1 SEC (10.0-13.1)
[2022-08-23] MEDS: ondansetron HCL 4 MG/2 ML VIAL IVPUSH (12:23)
[2022-08-23 12:26] LABS: Partial Thromboplastin Time 31.4 SEC (26.0-36.4)
[2022-08-23 12:27] LABS: Acetone, serum QL Negative (Negative)
[2022-08-23 12:32] LABS: Troponin-I High Sensitivity < 3.5 ng/L (<3.5-35.0)
[2022-08-23 12:34] LABS: Appearance Urine Clear; Color Urine Yellow; Glucose Urine UA >=1000 mg/dL (Negative); Leukocyte Esterase Urine Negative (Negative); Nitrite Urine Negative (Negative); PH 7.5 (5.0-9.0); Specific Gravity - Urine 1.025 (1.005-1.025); UMIC TRIGGER UACC YES; Urine Blood Negative (Negative); Urine Ketones Negative (Negative); Urine Protein Negative (Neg-Trace)
[2022-08-23 12:39] LABS: Bacteria Urine None Seen (None Seen); Hyaline Casts Urine 0-2 /LPF (0-2); RBC Urine 0-2 /HPF (0-2); Squamous Epithelial Cell Urine 0-2 /HPF (0-2); WBC Urine 0-5 /HPF (0-5)
[2022-08-23 12:39] LABS: Alanine Aminotransferase 10 U/L (0-40); Albumin Level 4.1 g/dL (3.5-5.0); Alkaline Phosphatase 58 U/L (39-117); Anion Gap 12 (12-20); Aspartate Amino Transferase 12 U/L (5-37); Bilirubin Total 0.3 mg/dL (0.0-1.0); Blood Urea Nitrogen 13 mg/dL (9-16); Calcium 9.9 mg/dL (8.4-10.2); Carbon Dioxide 31 mmol/L (22-29); Chloride 100 mmol/L (96-108); Creatinine Clr Calc Pharmacy 83.4; Estimated Glomerular Filt Rate > 60; Glucose Random 424 mg/dL (60-115); Lipase 25 U/L (8-78); Potassium 4.1 mmol/L (3.3-5.1); Sodium 139 mmol/L (135-145); Total Protein 6.6 g/dL (6.5-8.0)
[2022-08-23 12:52] LABS: Influenza A PCR NEGATIVE (Negative); Influenza B PCR NEGATIVE (Negative); Resp Syncy Virus RNA Qual PCR NEGATIVE (Negative); SARS COV2 PCR INHOUSE NEGATIVE (Negative)
[2022-08-23] MEDS: Insulin Regular, Human 100 UNIT/ML 3 ML VIAL 7 UNIT IVPUSH (13:02)
[2022-08-23 13:19] LABS: Glucose, Whole Blood 414 mg/dL (60-115)
[2022-08-23 13:58] VITALS: BP 125/66; PULSE 87; RESP 14; TEMP 37.1; O2SAT 99
[2022-08-23 14:07] LABS: Glucose, Whole Blood 70 mg/dL (60-115)
[2022-08-23] MEDS: diphenhydrAMINE HCL 50 MG/ML VIAL 25 MG IVPUSH (14:46)
[2022-08-23] MEDS: Famotidine/PF 20 MG/2 ML VIAL IVPUSH (14:47)
[2022-08-23] MEDS: Magnesium Hydrox/Alum Hydrox 30 ML ORAL.SUSP PO (14:47)
[2022-08-23] MEDS: Lidocaine HCl Viscous 2 % 15 ML SOLUTION MUCOUS MEM (14:47)
[2022-08-23] MEDS: Metoclopramide HCl 10 MG/2 ML VIAL IVPUSH (14:47)
--- NOTE | 2022-08-23 15:00 | MHC.EDTECH ---
this pct assumed care of patient at 1500 ,patient is resting ,1600 vitals sign taken and blood sugar check ,call wyatt within reach .
[2022-08-23 16:00] VITALS: BP 111/75; PULSE 80; RESP 16; TEMP 36.3; O2SAT 96
[2022-08-23 16:22] LABS: Glucose, Whole Blood 172 mg/dL (60-115)
== END 2022-08-23 17:11 | disposition home or self-care (01) ==
PROVIDERS: Physician Assistant; Emergency Provider Emergency Medicine
DX: R10.10 Upper abdominal pain, unspecified (principal); E11.65 Type 2 diabetes mellitus with hyperglycemia; F12.90 Cannabis use, unspecified, uncomplicated; Z79.4 Long term (current) use of insulin; Z79.899 Other long term (current) drug therapy; Z20.822 Contact with and (suspected) exposure to COVID-19; Z20.828 Contact with and (suspected) exposure to other viral communicable diseases
CPT/HCPCS: 0241U; 36415; 80053; 81001; 82009; 82947; 83690; 84484; 85025; 85610; 85730; 93005; 96361; 96374; 96375; 99285; J1200; J1885; J2405; J2765

== ENCOUNTER 2022-08-27 22:47 | Emergency (ER) | payer OTHER, SELFPAY ==
[2022-08-27 22:51] VITALS: BP 148/85; PULSE 98; RESP 20; TEMP 36.7; O2SAT 99; BMI 25.8
--- NOTE | 2022-08-27 22:58 | PC.NURSE ---
patient has sensor for glucose check on phone, checked in triage and showed RN result, 155.
--- NOTE | 2022-08-27 23:23 | ED.NAVMDI ---
HPI - Nausea/Vomiting/Diarrhea General Chief complaint: Nausea/Vomiting/Diarrhea Stated complaint: Vomiting Time Seen by Provider: 08/27/22 23:10 Source: patient Mode of arrival: ambulatory Limitations: no limitations History of Present Illness HPI Narrative: Patient type 1 diabetic with history of gastroparesis and marijuana use which he has not used for last 10 days comes here for vomiting for last 1 week unable to hold solids or liquids down been taking his insulin on arrival patient's blood sugar was 148 Related Data Home Medications Medication Instructions Recorded Confirmed sertraline 25 mg tablet 25 mg PO DAILY 12/28/21 06/17/22 pantoprazole 40 mg tablet,delayed 1 tab PO DAILY 03/15/22 06/17/22 release insulin lispro protamine-lispro 60 unit subcut BID 04/30/22 06/17/22 100 unit/mL (75-25) subcutaneous pen Previous Rx's Medication Instructions Recorded ondansetron HCl 8 mg tablet 8 mg PO Q8H PRN nausea and 06/19/22 vomiting 5 days #15 tabs ondansetron 8 mg disintegrating 8 mg PO Q8H PRN nausea and 07/11/22 tablet vomiting 5 days #15 tabs promethazine 25 mg rectal 25 mg IN Q6H PRN nausea and 08/03/22 suppository (Promethegan) vomiting #20 ea promethazine 25 mg rectal 25 mg IN Q6H PRN nausea and 08/23/22 suppository vomiting #12 ea lorazepam 1 mg tablet (Ativan) 1 mg PO BEDTIME PRN anxiety #14 08/28/22 tabs metoclopramide HCl 10 mg tablet 10 mg PO Q6H PRN nausea and 08/28/22 (Reglan) vomiting #90 tabs Allergies Allergy/AdvReac Type Severity Reaction Status Date / Time passion fruit [PASSION FRUIT] Allergy Unknown UNK Verified 08/03/22 16:35 Review of Systems Review of Systems: Yes all other systems are reviewed and are negative PMFSH Past Medical History Medical History Cyclical vomiting Diabetes Diabetic gastroparesis Diabetic keto-acidosis Esophageal ulcer Gastroparesis Leukocytosis Noncompliance with medication regimen Persistent hyperactive cannabis intoxication delirium Surgical History No pertinent past surgical history Family History Family History Other No family history of coronary artery disease Social History Social History Household Members: None Housing: Apartment Do you presently have visiting nurse or other home services: No Alcohol intake: never Patient Tobacco Use Status: Never used Tobacco Smoked in Last 30 Days: No Use of substances other than those prescribed or required for medical reasons: Yes Substance Use Type: Marijuana Advance Directives: Yes Advance Directives on File: Yes Advance Directives Date on File: 01/22/21 service: No Current occupational status: employed Physical Exam Vital Signs: Vital Signs: Last Vital Signs Temp 99.3 F 08/28/22 00:09 Pulse 89 08/28/22 00:09 Resp 18 08/28/22 00:09 BP 116/74 08/28/22 00:09 Pulse Ox 98 08/28/22 00:09 O2 Del Method 08/28/22 00:09 BMI result Body Mass Index 25.8 Appearance: Alert. Oriented X3. No acute distress. Eyes: No pallor or icterus ENT: Pharynx normal. Oral Mucosa moist Neck: Normal inspection. Neck supple. CVS: Normal heart rate and rhythm. Pulses normal. Respiratory: No respiratory distress. Equal air entry bilateral, no wheezing/rales/rhonchi Abdomen: Soft and nontender. Bowel sounds are present, no mass palpable, no CVA tenderness Skin: Skin warm and dry. Normal skin color. Normal skin turgor. Extremities: No lower extremity edema. No calf tenderness Neuro: Oriented X 3. No motor deficit. 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 Time: 01:52 Medications Administered Discontinued Medications Generic Name Dose Route Start Last Admin Trade Name Freq PRN Reason Stop Dose Admin Sodium Chloride 1,000 mls @ 999 mls/hr 08/27/22 23:29 08/27/22 23:59 Ns IV 08/28/22 00:29 999 mls/hr .Q1H1M ONE Administration Lorazepam 1 mg 08/27/22 23:32 08/27/22 23:55 Lorazepam 2 Mg/Ml Vial IVPUSH 08/27/22 23:33 1 mg ONCE ONE Administration Metoclopramide HCl 10 mg 08/27/22 23:32 08/28/22 00:00 Metoclopramide Hcl 10 Mg/2 Ml Vial IVPUSH 08/27/22 23:33 10 mg ONCE ONE Administration Ondansetron HCl 4 mg 08/27/22 23:29 08/27/22 23:52 Ondansetron Hcl 4 Mg/2 Ml Vial IVPUSH 08/27/22 23:30 4 mg ONCE ONE Administration Medical Decision Making Lab Data MDM Lab Attestation statement: I reviewed the patient's lab results. 08/27/22 23:39 08/27/22 23:39 Labs: Lab Results 08/27/22 08/27/22 08/27/22 Range/Units 23:25 23:39 23:39 WBC 10.9 H (4.8-10.8) X10*3/uL RBC 5.51 D (4.60-5.80) X10*6/uL Hgb 15.7 (14.0-18.0) g/dl Hct 45.2 (42.0-52.0) % MCV 82.0 (80.0-98.0) fL MCH 28.5 (27.0-33.0) pg MCHC 34.7 (31.0-36.0) g/dl RDW 12.1 (11.0-16.0) % Plt Count 352 D (160-400) X10*3/uL MPV 9.5 (9.4-12.4) fL Immature Gran % (Auto) 0.3 (0.0-0.4) % Neut % (Auto) 61.5 (45-73) % Lymph % (Auto) 25.3 (20-40) % [place] % (Auto) 12.2 H (2-11) % Eos % (Auto) 0.4 (0-4) % Baso % (Auto) 0.3 (0-2) % Lymph # (Auto) 2.8 (1.2-4.9) X10*3/uL [place] # (Auto) 1.3 H (0.1-1.2) X10*3/uL Eos # (Auto) 0.0 (0.0-0.4) X10*3/uL Baso # (Auto) 0.0 (0.0-0.2) X10*3/uL Abs Immat Gran (auto) 0.03 (0.00-0.03) X10*3/uL Absolute Neuts (auto) 6.7 (2.0-8.3) x10*3/uL Absolute Nucleated RBC 0.000 (0.0-0.012) X10*3/uL Nucleated RBC % (auto) 0.0 (0.0-0.2) /100WBC Sodium 133 L (135-145) mmol/L Potassium 4.9 (3.3-5.1) mmol/L Chloride 92 L (96-108) mmol/L Carbon Dioxide 28 (22-29) mmol/L Anion Gap 18 (12-20) BUN 8 L (9-16) mg/dL Creatinine 1.14 (0.5-1.4) mg/dL Estim Creat Clear Calc 88.6 Estimated GFR > 60 POC Glucose 148 H (60-115) mg/dL Random Glucose 157 H (60-115) mg/dL Calcium 10.1 (8.4-10.2) mg/dL Magnesium 2.2 (1.6-2.6) mg/dL Total Bilirubin 0.9 (0.0-1.0) mg/dL AST 26 (5-37) U/L ALT 11 (0-40) U/L Alkaline Phosphatase 69 (39-117) U/L Total Protein 7.7 (6.5-8.0) g/dL Albumin 4.4 (3.5-5.0) g/dL Lipase 8 (8-78) U/L Discharge Plan Discharge Clinical Impression: Diabetic gastroparesis associated with type 1 diabetes mellitus Patient Disposition: Home, Self-Care Instructions: Diabetic Gastroparesis (DC) Additional Instructions: Drink plenty of fluids Take Reglan 1 tablet 1 hour prior to eating meals to avoid vomiting Continue Protonix Follow-up with gastroenterology Ativan for severe anxiety Prescriptions: New metoclopramide HCl [Reglan] 10 mg tablet 10 mg PO Q6H PRN (Reason: nausea and vomiting) Qty: 90 0RF lorazepam [Ativan] 1 mg tablet 1 mg PO BEDTIME PRN (Reason: anxiety) Qty: 14 0RF No Action promethazine 25 mg suppository 25 mg IN Q6H PRN (Reason: nausea and vomiting) Qty: 12 0RF sertraline 25 mg tablet 25 mg PO DAILY pantoprazole 40 mg tablet,delayed release (DR/EC) 1 tab PO DAILY insulin lispro protamin-lispro 100 unit/mL (75-25) insulin pen 60 unit subcut BID ondansetron HCl 8 mg tablet 8 mg PO Q8H PRN (Reason: nausea and vomiting) 5 Days Qty: 15 0RF ondansetron 8 mg tablet,disintegrating 8 mg PO Q8H PRN (Reason: nausea and vomiting) 5 Days Qty: 15 0RF promethazine [Promethegan] 25 mg suppository 25 mg IN Q6H PRN (Reason: nausea and vomiting) Qty: 20 0RF
[2022-08-27 23:30] LABS: Glucose, Whole Blood 148 mg/dL (60-115)
[2022-08-27] MEDS: ondansetron HCL 4 MG/2 ML VIAL IVPUSH (23:52)
[2022-08-27 23:54] LABS: MANUAL DIFF FLAG NO
[2022-08-27] MEDS: LORazepam 2 MG/ML VIAL 1 MG IVPUSH (23:55)
[2022-08-27] MEDS: 0.9 % Sodium Chloride 1,000 ML 999 ML IV (23:59)
[2022-08-28] MEDS: Metoclopramide HCl 10 MG/2 ML VIAL IVPUSH
[2022-08-28 00:09] VITALS: BP 116/74; PULSE 89; RESP 18; TEMP 37.4; O2SAT 98
[2022-08-28 00:23] LABS: Alanine Aminotransferase 11 U/L (0-40); Albumin Level 4.4 g/dL (3.5-5.0); Alkaline Phosphatase 69 U/L (39-117); Anion Gap 18 (12-20); Aspartate Amino Transferase 26 U/L (5-37); Bilirubin Total 0.9 mg/dL (0.0-1.0); Blood Urea Nitrogen 8 mg/dL (9-16); Calcium 10.1 mg/dL (8.4-10.2); Carbon Dioxide 28 mmol/L (22-29); Chloride 92 mmol/L (96-108); Creatinine Clr Calc Pharmacy 88.6; Estimated Glomerular Filt Rate > 60; Glucose Random 157 mg/dL (60-115); Lipase 8 U/L (8-78); Magnesium 2.2 mg/dL (1.6-2.6); Potassium 4.9 mmol/L (3.3-5.1); Sodium 133 mmol/L (135-145); Total Protein 7.7 g/dL (6.5-8.0)
[2022-08-28 00:28] LABS: Basophils Percent Auto 0.3 % (0-2); Eosinophils Percent Auto 0.4 % (0-4); Hematocrit 45.2 % (42.0-52.0); Hemoglobin 15.7 g/dl (14.0-18.0); Imm Gran Abs Auto 0.03 X10*3/uL (0.00-0.03); Imm Gran Pct Auto 0.3 % (0.0-0.4); Lymphocytes Absolute Auto 2.8 X10*3/uL (1.2-4.9); Lymphocytes Percent Auto 25.3 % (20-40); Mean Corpuscular HGB Conc 34.7 g/dl (31.0-36.0); Mean Corpuscular Hemoglobin 28.5 pg (27.0-33.0); Mean Platelet Volume 9.5 fL (9.4-12.4); Monocytes Absolute Auto 1.3 X10*3/uL (0.1-1.2); Monocytes Percent Auto 12.2 % (2-11); Neutrophils Absolute Auto 6.7 x10*3/uL (2.0-8.3); Neutrophils Percent Auto 61.5 % (45-73); Platelet Count 352 X10*3/uL (160-400); Red Blood Count 5.51 X10*6/uL (4.60-5.80); Red Cell Distribution Width 12.1 % (11.0-16.0); White Blood Count 10.9 X10*3/uL (4.8-10.8)
--- NOTE | 2022-08-28 01:11 | PC.NURSE ---
PT A&Ox4, reports 10/10 increasing lower abd pain described as intermitting stabbing, sharp, and aching with N/V, denies diarrhea. Reports last BM last week, unable to keep food down. Hypoactive bowel sounds, tender to touch to lower quadrants. IV established. Blood work drawn and sent to lab. Meds given as documented. Warm blanket provided.
== END 2022-08-28 02:01 | disposition home or self-care (01) ==
PROVIDERS: Emergency Provider Internal Medicine; PCP Internal Medicine
DX: R11.2 Nausea with vomiting, unspecified (principal); R19.7 Diarrhea, unspecified; E10.43 Type 1 diabetes mellitus with diabetic autonomic (poly)neuropathy; K31.84 Gastroparesis; Z79.4 Long term (current) use of insulin
CPT/HCPCS: 36415; 80053; 82947; 83690; 83735; 85025; 96374; 96375; 99284; J2060; J2405; J2765

== ENCOUNTER 2022-09-24 14:43 | Emergency (ER) | payer OTHER, SELFPAY ==
[2022-09-24 14:46] VITALS: BP 146/101; PULSE 125; RESP 20; TEMP 37.2; O2SAT 98; BMI 26.6
--- NOTE | 2022-09-24 14:46 | ED.NAVMDI ---
HPI - Nausea/Vomiting/Diarrhea General Chief complaint: Nausea/Vomiting/Diarrhea <ROSAURA Loyd - Last Filed: 09/24/22 14:51> Stated complaint: Dehydrated/Vomiting <ROSAURA Loyd - Last Filed: 09/24/22 14:51> Time Seen by Provider: 09/24/22 15:56 <ROSAURA Loyd - Last Filed: 09/24/22 14:51> Source: patient <Lizzette Cuevas MD - Last Filed: 09/24/22 21:13> Mode of arrival: ambulatory <Lizzette Cuevas MD - Last Filed: 09/24/22 21:13> Limitations: no limitations <Lizzette Cuevas MD - Last Filed: 09/24/22 21:13> History of Present Illness HPI Narrative: Patient comes to the emergency room complaining of 2 days of nausea , vomiting and diffuse abdominal pain, no fever or diarrhea. Patient is known to be diabetic. Today, his blood glucose read as ?high?. Patient gave himself 50 units of insulin lispro approximately 3-1/2 hours ago. Patient is also known to have cannabis hyperemesis <Lizzette Cuevas MD - Last Filed: 09/24/22 21:13> Related Data Home medications: Home Medications Medication Instructions Recorded Confirmed sertraline 25 mg tablet 25 mg PO DAILY 12/28/21 06/17/22 pantoprazole 40 mg tablet,delayed 1 tab PO DAILY 03/15/22 06/17/22 release insulin lispro protamine-lispro 60 unit subcut BID 04/30/22 06/17/22 100 unit/mL (75-25) subcutaneous pen Previous Rx's Medication Instructions Recorded ondansetron HCl 8 mg tablet 8 mg PO Q8H PRN nausea and 06/19/22 vomiting 5 days #15 tabs ondansetron 8 mg disintegrating 8 mg PO Q8H PRN nausea and 07/11/22 tablet vomiting 5 days #15 tabs promethazine 25 mg rectal 25 mg VA Q6H PRN nausea and 08/03/22 suppository (Promethegan) vomiting #20 ea promethazine 25 mg rectal 25 mg VA Q6H PRN nausea and 08/23/22 suppository vomiting #12 ea lorazepam 1 mg tablet (Ativan) 1 mg PO BEDTIME PRN anxiety #14 08/28/22 tabs metoclopramide HCl 10 mg tablet 10 mg PO Q6H PRN nausea and 08/28/22 (Reglan) vomiting #90 tabs <ROSAURA Loyd - Last Filed: 09/24/22 14:51> Allergies/Adverse reactions: Allergies Allergy/AdvReac Type Severity Reaction Status Date / Time passion fruit [PASSION FRUIT] Allergy Unknown UNK Verified 08/03/22 16:35 <ROSAURA Loyd - Last Filed: 09/24/22 14:51> Review of Systems Review of Systems: Constitutional : No Weight loss, No Fever, No Chills, No Night Sweats, No Fatigue, No Malaise ENT/Mouth : No Hearing loss, No Ear Pain, No Nasal Congestion, No Sinus Pain, No Hoarseness, No sore throat, No Rhinorrhea, No Swallowing Difficulty Eyes: No Eye Pain, No Swelling, No Redness, No Foreign Body, No Discharge, No Vision Changes Cardiovascular : No Chest Pain, No SOB, No Dyspnea on Exertion, No Orthopnea, No Edema, No Palpitations Respiratory : No Cough, No Sputum, No Wheezing, No Smoke Exposure, No Dyspnea Gastrointestinal : Complaining of nausea and vomiting No Diarrhea, No Constipation, complaining of diffuse abdominal Pain, No Hematochezia, No Melena Genitourinary : no irregular bleeding, No Dysuria, No Urinary Frequency, No Hematuria, No Urinary Incontinence, No Urgency, No Flank Pain, No Urinary Flow Changes, No Hesitancy Musculoskeletal : No joint pain, No Myalgias, No Joint Swelling Skin : No Skin Lesions, No rash Neuro : No Weakness, No Numbness, No Paresthesias, No Loss of Consciousness, No Dizziness, No Headache Psych : No Anxiety/Panic, No Depression, No SI/HI/AH/VH, No Social Issues, Heme/Lymph: No Bruising, No Bleeding,No Lymphadenopathy Endocrine : No Polyuria, No Polydipsia, No Temperature Intolerance <Lizzette Cuevas MD - Last Filed: 09/24/22 21:13> [facility] Past Medical History Medical History: Medical History Cyclical vomiting Diabetes Diabetic gastroparesis Diabetic keto-acidosis Esophageal ulcer Gastroparesis Leukocytosis Noncompliance with medication regimen Persistent hyperactive cannabis intoxication delirium <ROSAURA Loyd - Last Filed: 09/24/22 14:51> Surgical History: Surgical History No pertinent past surgical history <ROSAURA Loyd - Last Filed: 09/24/22 14:51> Family History Family History: Family History Other No family history of coronary artery disease <ROSAURA Loyd - Last Filed: 09/24/22 14:51> Social History Social History: Social History Household Members: None Housing: Apartment Do you presently have visiting nurse or other home services: No Alcohol intake: never Patient Tobacco Use Status: Never used Tobacco Substance Use Type: Marijuana Advance Directives: Yes Advance Directives on File: Yes Advance Directives Date on File: 01/22/21 service: No Current occupational status: employed <ROSAURA Loyd - Last Filed: 09/24/22 14:51> Physical Exam Vital Signs: Vital Signs: Last Vital Signs Temp 98.9 F 09/24/22 14:46 Pulse 106 H 09/24/22 20:14 Resp 16 09/24/22 20:14 BP 131/78 09/24/22 20:14 Pulse Ox 98 09/24/22 20:14 O2 Del Method 09/24/22 20:14 BMI result Body Mass Index 26.6 <ROSAURA Loyd - Last Filed: 09/24/22 14:51> Vital Signs: Last Vital Signs Temp 98.9 F 09/24/22 14:46 Pulse 106 H 09/24/22 20:14 Resp 16 09/24/22 20:14 BP 131/78 09/24/22 20:14 Pulse Ox 98 09/24/22 20:14 O2 Del Method 09/24/22 20:14 BMI result Body Mass Index 26.6 <Lizzette Cuevas MD - Last Filed: 09/24/22 21:13> Const: Other: Appearance: Alert. Oriented X3. No acute distress. Eyes: Pupils equal, round and reactive to light. ENT: Dry oral mucosa, cracked lips Neck: Normal inspection. Neck supple. No lymph nodes noted. No crepitus CVS: Normal heart rate and rhythm. Pulses normal. Normal S1 and S2 Respiratory: No respiratory distress. Breath sounds normal. No Wheezing. No rales Abdomen: Soft , mild to moderate pain to palpation in all quadrants, no guarding, No rigidity. No distention. Skin: Skin warm and dry. Normal skin color. Normal skin turgor. Extremities: No lower extremity edema. No Lacerations. No Rash Neuro: Oriented X 3. No motor deficit. No sensory deficit. Moving all extremities. No slurred speech. 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 He reports the nausea/vomiting and epigastric abdominal pain started 2 days ago. 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 He denies any fevers, recent travel or sick contacts, diarrhea constipation or cough or any other symptoms complaints or concerns at this time. POC in triage at 558 Plan: Labs including acetone level, COVID/RSV/flu swab, rapid strep <ROSAURA Loyd - Last Filed: 09/24/22 14:51> Medications Administered Discontinued Medications Generic Name Dose Route Start Last Admin Trade Name Roger PRN Reason Stop Dose Admin Sodium Chloride 2,000 mls @ 999 mls/hr 09/24/22 15:57 09/24/22 18:32 Ns IVCONT 09/24/22 17:57 Infused .Q2H1M ONE Infusion Insulin Human Regular 10 unit 09/24/22 16:19 09/24/22 16:26 Insulin Regular, Human 100 Unit/Ml 3 Ml Vial IVPUSH 09/24/22 16:20 10 unit ONCE ONE Administration Metoclopramide HCl 10 mg 09/24/22 15:57 09/24/22 16:08 Metoclopramide Hcl 10 Mg/2 Ml Vial IVPUSH 09/24/22 15:58 10 mg ONCE ONE Administration Morphine Sulfate 1 mg 09/24/22 16:00 09/24/22 16:08 Morphine Sulfate 2 Mg/Ml Cartridge IVPUSH 09/24/22 16:01 1 mg ONCE ONE Administration Protocol <ROSAURA Loyd - Last Filed: 09/24/22 14:51> Medications Administered Discontinued Medications Generic Name Dose Route Start Last Admin Trade Name Roger PRN Reason Stop Dose Admin Sodium Chloride 2,000 mls @ 999 mls/hr 09/24/22 15:57 09/24/22 18:32 Ns IVCONT 09/24/22 17:57 Infused .Q2H1M ONE Infusion Insulin Human Regular 10 unit 09/24/22 16:19 09/24/22 16:26 Insulin Regular, Human 100 Unit/Ml 3 Ml Vial IVPUSH 09/24/22 16:20 10 unit ONCE ONE Administration Metoclopramide HCl 10 mg 09/24/22 15:57 09/24/22 16:08 Metoclopramide Hcl 10 Mg/2 Ml Vial IVPUSH 09/24/22 15:58 10 mg ONCE ONE Administration Morphine Sulfate 1 mg 09/24/22 16:00 09/24/22 16:08 Morphine Sulfate 2 Mg/Ml Cartridge IVPUSH 09/24/22 16:01 1 mg ONCE ONE Administration Protocol <Lizzette Cuevas MD - Last Filed: 09/24/22 21:13> Medical Decision Making Medical Decision Making [facility] Narrative: -patient getting IV fluids, Reglan, 1 mg of morphine -patient's blood glucose improved to 144. -anion gap is closed, no 16. Patient feeling better, tolerating well p.o.. <Lizzette Cuevas MD - Last Filed: 09/24/22 21:13> Differential Diagnosis Differential Diagnoses: The differential diagnosis associated with the presentation includes (Hyperglycemia, DKA, viral syndrome, cannabis hyperemesis) <Lizzette Cuevas MD - Last Filed: 09/24/22 21:13> Lab Data [facility] Lab Attestation statement: I reviewed the patient's lab results. <Lizzette Cuevas MD - Last Filed: 09/24/22 21:13> Result Diagrams: 09/24/22 15:54 09/24/22 15:54 <ROSAURA Loyd - Last Filed: 09/24/22 14:51> Labs: Lab Results 09/24/22 09/24/22 09/24/22 Range/Units 14:50 15:54 15:54 WBC 15.7 H (4.8-10.8) X10*3/uL RBC 5.73 (4.60-5.80) X10*6/uL Hgb 16.4 (14.0-18.0) g/dl Hct 48.0 (42.0-52.0) % MCV 83.8 (80.0-98.0) fL MCH 28.6 (27.0-33.0) pg MCHC 34.2 (31.0-36.0) g/dl RDW 12.1 (11.0-16.0) % Plt Count 343 (160-400) X10*3/uL MPV 9.8 (9.4-12.4) fL Immature Gran % (Auto) 0.3 (0.0-0.4) % Neut % (Auto) 82.7 H (45-73) % Lymph % (Auto) 9.3 L (20-40) % [place] % (Auto) 7.3 (2-11) % Eos % (Auto) 0.1 (0-4) % Baso % (Auto) 0.3 (0-2) % Lymph # (Auto) 1.5 (1.2-4.9) X10*3/uL [place] # (Auto) 1.2 (0.1-1.2) X10*3/uL Eos # (Auto) 0.0 (0.0-0.4) X10*3/uL Baso # (Auto) 0.1 (0.0-0.2) X10*3/uL Abs Immat Gran (auto) 0.05 H (0.00-0.03) X10*3/uL Absolute Neuts (auto) 13.0 H (2.0-8.3) x10*3/uL Absolute Nucleated RBC 0.000 (0.0-0.012) X10*3/uL Nucleated RBC % (auto) 0.0 (0.0-0.2) /100WBC PT (10.0-13.1) SEC INR (0.9-1.1) Sodium 133 L (135-145) mmol/L Potassium 4.0 (3.3-5.1) mmol/L Chloride 91 L (96-108) mmol/L Carbon Dioxide 25 (22-29) mmol/L Anion Gap 21 H (12-20) BUN 26 H (9-16) mg/dL Creatinine 1.81 H (0.5-1.4) mg/dL Estim Creat Clear Calc 55.8 Estimated GFR 46 POC Glucose 558 H* (60-115) mg/dL Random Glucose 422 H* (60-115) mg/dL Calcium 10.1 (8.4-10.2) mg/dL Magnesium 2.8 H (1.6-2.6) mg/dL Total Bilirubin 1.1 H (0.0-1.0) mg/dL AST 12 (5-37) U/L ALT 14 (0-40) U/L Alkaline Phosphatase 93 (39-117) U/L Total Protein 7.8 (6.5-8.0) g/dL Albumin 4.9 (3.5-5.0) g/dL Lipase 12 (8-78) U/L Urine Color Urine Appearance Urine pH (5.0-9.0) Ur Specific [place] (1.005-1.025) Urine Protein (Neg-Trace) mg/dL Urine Glucose (UA) (Negative) mg/dL Urine Ketones (Negative) mg/dL Urine Blood (Negative) Urine Nitrite (Negative) Ur Leukocyte Esterase (Negative) Urine RBC (0-2) /HPF Urine WBC (0-5) /HPF Ur Squamous Epith Cells (0-2) /HPF Urine Bacteria (None Seen) Hyaline Casts (0-2) /LPF Urine Opiates Screen (Not Detect) Urine Fentanyl Screen (Not Detect) Ur Barbiturates Screen (Not Detect) Ur Phencyclidine Scrn (Not Detect) Ur Amphetamines Screen (Not Detect) U Benzodiazepines Scrn (Not Detect) Urine Cocaine Screen (Not Detect) U Marijuana (THC) Screen (Not Detect) Acetone, Qual Small H (Negative) Influenza Type A (PCR) (Negative) Influenza Type B (PCR) (Negative) RSV RNA Qual (PCR) (Negative) SARS-CoV-2 RNA (RT-PCR) (Negative) S. pyogenes GrpA MARCUS (Negative) 02/17/23 02/17/23 02/17/23 Range/Units 15:54 15:54 16:29 WBC (4.8-10.8) X10*3/uL RBC (4.60-5.80) X10*6/uL Hgb (14.0-18.0) g/dl Hct (42.0-52.0) % MCV (80.0-98.0) fL MCH (27.0-33.0) pg MCHC (31.0-36.0) g/dl RDW (11.0-16.0) % Plt Count (160-400) X10*3/uL MPV (9.4-12.4) fL Immature Gran % (Auto) (0.0-0.4) % Neut % (Auto) (45-73) % Lymph % (Auto) (20-40) % [place] % (Auto) (2-11) % Eos % (Auto) (0-4) % Baso % (Auto) (0-2) % Lymph # (Auto) (1.2-4.9) X10*3/uL [place] # (Auto) (0.1-1.2) X10*3/uL Eos # (Auto) (0.0-0.4) X10*3/uL Baso # (Auto) (0.0-0.2) X10*3/uL Abs Immat Gran (auto) (0.00-0.03) X10*3/uL Absolute Neuts (auto) (2.0-8.3) x10*3/uL Absolute Nucleated RBC (0.0-0.012) X10*3/uL Nucleated RBC % (auto) (0.0-0.2) /100WBC PT 10.0 (10.0-13.1) SEC INR 0.9 (0.9-1.1) Sodium (135-145) mmol/L Potassium (3.3-5.1) mmol/L Chloride (96-108) mmol/L Carbon Dioxide (22-29) mmol/L Anion Gap (12-20) BUN (9-16) mg/dL Creatinine (0.5-1.4) mg/dL Estim Creat Clear Calc Estimated GFR POC Glucose (60-115) mg/dL Random Glucose (60-115) mg/dL Calcium (8.4-10.2) mg/dL Magnesium (1.6-2.6) mg/dL Total Bilirubin (0.0-1.0) mg/dL AST (5-37) U/L ALT (0-40) U/L Alkaline Phosphatase (39-117) U/L Total Protein (6.5-8.0) g/dL Albumin (3.5-5.0) g/dL Lipase (8-78) U/L Urine Color Urine Appearance Urine pH (5.0-9.0) Ur Specific [place] (1.005-1.025) Urine Protein (Neg-Trace) mg/dL Urine Glucose (UA) (Negative) mg/dL Urine Ketones (Negative) mg/dL Urine Blood (Negative) Urine Nitrite (Negative) Ur Leukocyte Esterase (Negative) Urine RBC (0-2) /HPF Urine WBC (0-5) /HPF Ur Squamous Epith Cells (0-2) /HPF Urine Bacteria (None Seen) Hyaline Casts (0-2) /LPF Urine Opiates Screen (Not Detect) Urine Fentanyl Screen (Not Detect) Ur Barbiturates Screen (Not Detect) Ur Phencyclidine Scrn (Not Detect) Ur Amphetamines Screen (Not Detect) U Benzodiazepines Scrn (Not Detect) Urine Cocaine Screen (Not Detect) U Marijuana (THC) Screen (Not Detect) Acetone, Qual (Negative) Influenza Type A (PCR) NEGATIVE (Negative) Influenza Type B (PCR) NEGATIVE (Negative) RSV RNA Qual (PCR) NEGATIVE (Negative) SARS-CoV-2 RNA (RT-PCR) NEGATIVE (Negative) S. pyogenes GrpA MARCUS Negative (Negative) 09/24/22 09/24/22 09/24/22 Range/Units 18:51 20:26 20:26 WBC (4.8-10.8) X10*3/uL RBC (4.60-5.80) X10*6/uL Hgb (14.0-18.0) g/dl Hct (42.0-52.0) % MCV (80.0-98.0) fL MCH (27.0-33.0) pg MCHC (31.0-36.0) g/dl RDW (11.0-16.0) % Plt Count (160-400) X10*3/uL MPV (9.4-12.4) fL Immature Gran % (Auto) (0.0-0.4) % Neut % (Auto) (45-73) % Lymph % (Auto) (20-40) % [place] % (Auto) (2-11) % Eos % (Auto) (0-4) % Baso % (Auto) (0-2) % Lymph # (Auto) (1.2-4.9) X10*3/uL [place] # (Auto) (0.1-1.2) X10*3/uL Eos # (Auto) (0.0-0.4) X10*3/uL Baso # (Auto) (0.0-0.2) X10*3/uL Abs Immat Gran (auto) (0.00-0.03) X10*3/uL Absolute Neuts (auto) (2.0-8.3) x10*3/uL Absolute Nucleated RBC (0.0-0.012) X10*3/uL Nucleated RBC % (auto) (0.0-0.2) /100WBC PT (10.0-13.1) SEC INR (0.9-1.1) Sodium (135-145) mmol/L Potassium (3.3-5.1) mmol/L Chloride (96-108) mmol/L Carbon Dioxide (22-29) mmol/L Anion Gap (12-20) BUN (9-16) mg/dL Creatinine (0.5-1.4) mg/dL Estim Creat Clear Calc Estimated GFR POC Glucose 148 H (60-115) mg/dL Random Glucose (60-115) mg/dL Calcium (8.4-10.2) mg/dL Magnesium (1.6-2.6) mg/dL Total Bilirubin (0.0-1.0) mg/dL AST (5-37) U/L ALT (0-40) U/L Alkaline Phosphatase (39-117) U/L Total Protein (6.5-8.0) g/dL Albumin (3.5-5.0) g/dL Lipase (8-78) U/L Urine Color Yellow Urine Appearance Clear Urine pH 5.5 (5.0-9.0) Ur Specific [place] >= 1.030 H (1.005-1.025) Urine Protein 30 (1+) H (Neg-Trace) mg/dL Urine Glucose (UA) >=1000 H (Negative) mg/dL Urine Ketones 40 (Negative) mg/dL Urine Blood Negative (Negative) Urine Nitrite Negative (Negative) Ur Leukocyte Esterase Negative (Negative) Urine RBC 0-2 (0-2) /HPF Urine WBC 0-5 (0-5) /HPF Ur Squamous Epith Cells 0-2 (0-2) /HPF Urine Bacteria None Seen (None Seen) Hyaline Casts 0-2 (0-2) /LPF Urine Opiates Screen POSITIVE H (Not Detect) Urine Fentanyl Screen Not Detected (Not Detect) Ur Barbiturates Screen Not Detected (Not Detect) Ur Phencyclidine Scrn Not Detected (Not Detect) Ur Amphetamines Screen Not Detected (Not Detect) U Benzodiazepines Scrn Not Detected (Not Detect) Urine Cocaine Screen Not Detected (Not Detect) U Marijuana (THC) Screen POSITIVE H (Not Detect) Acetone, Qual (Negative) Influenza Type A (PCR) (Negative) Influenza Type B (PCR) (Negative) RSV RNA Qual (PCR) (Negative) SARS-CoV-2 RNA (RT-PCR) (Negative) S. pyogenes GrpA MARCUS (Negative) 09/24/22 09/24/22 Range/Units 20:32 20:35 WBC (4.8-10.8) X10*3/uL RBC (4.60-5.80) X10*6/uL Hgb (14.0-18.0) g/dl Hct (42.0-52.0) % MCV (80.0-98.0) fL MCH (27.0-33.0) pg MCHC (31.0-36.0) g/dl RDW (11.0-16.0) % Plt Count (160-400) X10*3/uL MPV (9.4-12.4) fL Immature Gran % (Auto) (0.0-0.4) % Neut % (Auto) (45-73) % Lymph % (Auto) (20-40) % [place] % (Auto) (2-11) % Eos % (Auto) (0-4) % Baso % (Auto) (0-2) % Lymph # (Auto) (1.2-4.9) X10*3/uL [place] # (Auto) (0.1-1.2) X10*3/uL Eos # (Auto) (0.0-0.4) X10*3/uL Baso # (Auto) (0.0-0.2) X10*3/uL Abs Immat Gran (auto) (0.00-0.03) X10*3/uL Absolute Neuts (auto) (2.0-8.3) x10*3/uL Absolute Nucleated RBC (0.0-0.012) X10*3/uL Nucleated RBC % (auto) (0.0-0.2) /100WBC PT (10.0-13.1) SEC INR (0.9-1.1) Sodium 140 (135-145) mmol/L Potassium 3.6 (3.3-5.1) mmol/L Chloride 104 (96-108) mmol/L Carbon Dioxide 24 (22-29) mmol/L Anion Gap 16 (12-20) BUN 21 H (9-16) mg/dL Creatinine 1.29 (0.5-1.4) mg/dL Estim Creat Clear Calc 78.3 Estimated GFR > 60 POC Glucose 101 (60-115) mg/dL Random Glucose 107 (60-115) mg/dL Calcium 9.1 D (8.4-10.2) mg/dL Magnesium (1.6-2.6) mg/dL Total Bilirubin (0.0-1.0) mg/dL AST (5-37) U/L ALT (0-40) U/L Alkaline Phosphatase (39-117) U/L Total Protein (6.5-8.0) g/dL Albumin (3.5-5.0) g/dL Lipase (8-78) U/L Urine Color Urine Appearance Urine pH (5.0-9.0) Ur Specific [place] (1.005-1.025) Urine Protein (Neg-Trace) mg/dL Urine Glucose (UA) (Negative) mg/dL Urine Ketones (Negative) mg/dL Urine Blood (Negative) Urine Nitrite (Negative) Ur Leukocyte Esterase (Negative) Urine RBC (0-2) /HPF Urine WBC (0-5) /HPF Ur Squamous Epith Cells (0-2) /HPF Urine Bacteria (None Seen) Hyaline Casts (0-2) /LPF Urine Opiates Screen (Not Detect) Urine Fentanyl Screen (Not Detect) Ur Barbiturates Screen (Not Detect) Ur Phencyclidine Scrn (Not Detect) Ur Amphetamines Screen (Not Detect) U Benzodiazepines Scrn (Not Detect) Urine Cocaine Screen (Not Detect) U Marijuana (THC) Screen (Not Detect) Acetone, Qual (Negative) Influenza Type A (PCR) (Negative) Influenza Type B (PCR) (Negative) RSV RNA Qual (PCR) (Negative) SARS-CoV-2 RNA (RT-PCR) (Negative) S. pyogenes GrpA MARCUS (Negative) <ROSAURA Loyd - Last Filed: 09/24/22 14:51> Lab Results 09/24/22 09/24/22 09/24/22 Range/Units 14:50 15:54 15:54 WBC 15.7 H (4.8-10.8) X10*3/uL RBC 5.73 (4.60-5.80) X10*6/uL Hgb 16.4 (14.0-18.0) g/dl Hct 48.0 (42.0-52.0) % MCV 83.8 (80.0-98.0) fL MCH 28.6 (27.0-33.0) pg MCHC 34.2 (31.0-36.0) g/dl RDW 12.1 (11.0-16.0) % Plt Count 343 (160-400) X10*3/uL MPV 9.8 (9.4-12.4) fL Immature Gran % (Auto) 0.3 (0.0-0.4) % Neut % (Auto) 82.7 H (45-73) % Lymph % (Auto) 9.3 L (20-40) % [place] % (Auto) 7.3 (2-11) % Eos % (Auto) 0.1 (0-4) % Baso % (Auto) 0.3 (0-2) % Lymph # (Auto) 1.5 (1.2-4.9) X10*3/uL [place] # (Auto) 1.2 (0.1-1.2) X10*3/uL Eos # (Auto) 0.0 (0.0-0.4) X10*3/uL Baso # (Auto) 0.1 (0.0-0.2) X10*3/uL Abs Immat Gran (auto) 0.05 H (0.00-0.03) X10*3/uL Absolute Neuts (auto) 13.0 H (2.0-8.3) x10*3/uL Absolute Nucleated RBC 0.000 (0.0-0.012) X10*3/uL Nucleated RBC % (auto) 0.0 (0.0-0.2) /100WBC PT (10.0-13.1) SEC INR (0.9-1.1) Sodium 133 L (135-145) mmol/L Potassium 4.0 (3.3-5.1) mmol/L Chloride 91 L (96-108) mmol/L Carbon Dioxide 25 (22-29) mmol/L Anion Gap 21 H (12-20) BUN 26 H (9-16) mg/dL Creatinine 1.81 H (0.5-1.4) mg/dL Estim Creat Clear Calc 55.8 Estimated GFR 46 POC Glucose 558 H* (60-115) mg/dL Random Glucose 422 H* (60-115) mg/dL Calcium 10.1 (8.4-10.2) mg/dL Magnesium 2.8 H (1.6-2.6) mg/dL Total Bilirubin 1.1 H (0.0-1.0) mg/dL AST 12 (5-37) U/L ALT 14 (0-40) U/L Alkaline Phosphatase 93 (39-117) U/L Total Protein 7.8 (6.5-8.0) g/dL Albumin 4.9 (3.5-5.0) g/dL Lipase 12 (8-78) U/L Urine Color Urine Appearance Urine pH (5.0-9.0) Ur Specific [place] (1.005-1.025) Urine Protein (Neg-Trace) mg/dL Urine Glucose (UA) (Negative) mg/dL Urine Ketones (Negative) mg/dL Urine Blood (Negative) Urine Nitrite (Negative) Ur Leukocyte Esterase (Negative) Urine RBC (0-2) /HPF Urine WBC (0-5) /HPF Ur Squamous Epith Cells (0-2) /HPF Urine Bacteria (None Seen) Hyaline Casts (0-2) /LPF Urine Opiates Screen (Not Detect) Urine Fentanyl Screen (Not Detect) Ur Barbiturates Screen (Not Detect) Ur Phencyclidine Scrn (Not Detect) Ur Amphetamines Screen (Not Detect) U Benzodiazepines Scrn (Not Detect) Urine Cocaine Screen (Not Detect) U Marijuana (THC) Screen (Not Detect) Acetone, Qual Small H (Negative) Influenza Type A (PCR) (Negative) Influenza Type B (PCR) (Negative) RSV RNA Qual (PCR) (Negative) SARS-CoV-2 RNA (RT-PCR) (Negative) S. pyogenes GrpA MARCUS (Negative) 09/24/22 09/24/22 09/24/22 Range/Units 15:54 15:54 16:29 WBC (4.8-10.8) X10*3/uL RBC (4.60-5.80) X10*6/uL Hgb (14.0-18.0) g/dl Hct (42.0-52.0) % MCV (80.0-98.0) fL MCH (27.0-33.0) pg MCHC (31.0-36.0) g/dl RDW (11.0-16.0) % Plt Count (160-400) X10*3/uL MPV (9.4-12.4) fL Immature Gran % (Auto) (0.0-0.4) % Neut % (Auto) (45-73) % Lymph % (Auto) (20-40) % [place] % (Auto) (2-11) % Eos % (Auto) (0-4) % Baso % (Auto) (0-2) % Lymph # (Auto) (1.2-4.9) X10*3/uL [place] # (Auto) (0.1-1.2) X10*3/uL Eos # (Auto) (0.0-0.4) X10*3/uL Baso # (Auto) (0.0-0.2) X10*3/uL Abs Immat Gran (auto) (0.00-0.03) X10*3/uL Absolute Neuts (auto) (2.0-8.3) x10*3/uL Absolute Nucleated RBC (0.0-0.012) X10*3/uL Nucleated RBC % (auto) (0.0-0.2) /100WBC PT 10.0 (10.0-13.1) SEC INR 0.9 (0.9-1.1) Sodium (135-145) mmol/L Potassium (3.3-5.1) mmol/L Chloride (96-108) mmol/L Carbon Dioxide (22-29) mmol/L Anion Gap (12-20) BUN (9-16) mg/dL Creatinine (0.5-1.4) mg/dL Estim Creat Clear Calc Estimated GFR POC Glucose (60-115) mg/dL Random Glucose (60-115) mg/dL Calcium (8.4-10.2) mg/dL Magnesium (1.6-2.6) mg/dL Total Bilirubin (0.0-1.0) mg/dL AST (5-37) U/L ALT (0-40) U/L Alkaline Phosphatase (39-117) U/L Total Protein (6.5-8.0) g/dL Albumin (3.5-5.0) g/dL Lipase (8-78) U/L Urine Color Urine Appearance Urine pH (5.0-9.0) Ur Specific [place] (1.005-1.025) Urine Protein (Neg-Trace) mg/dL Urine Glucose (UA) (Negative) mg/dL Urine Ketones (Negative) mg/dL Urine Blood (Negative) Urine Nitrite (Negative) Ur Leukocyte Esterase (Negative) Urine RBC (0-2) /HPF Urine WBC (0-5) /HPF Ur Squamous Epith Cells (0-2) /HPF Urine Bacteria (None Seen) Hyaline Casts (0-2) /LPF Urine Opiates Screen (Not Detect) Urine Fentanyl Screen (Not Detect) Ur Barbiturates Screen (Not Detect) Ur Phencyclidine Scrn (Not Detect) Ur Amphetamines Screen (Not Detect) U Benzodiazepines Scrn (Not Detect) Urine Cocaine Screen (Not Detect) U Marijuana (THC) Screen (Not Detect) Acetone, Qual (Negative) Influenza Type A (PCR) NEGATIVE (Negative) Influenza Type B (PCR) NEGATIVE (Negative) RSV RNA Qual (PCR) NEGATIVE (Negative) SARS-CoV-2 RNA (RT-PCR) NEGATIVE (Negative) S. pyogenes GrpA MARCUS Negative (Negative) 09/24/22 09/24/22 09/24/22 Range/Units 18:51 20:26 20:26 WBC (4.8-10.8) X10*3/uL RBC (4.60-5.80) X10*6/uL Hgb (14.0-18.0) g/dl Hct (42.0-52.0) % MCV (80.0-98.0) fL MCH (27.0-33.0) pg MCHC (31.0-36.0) g/dl RDW (11.0-16.0) % Plt Count (160-400) X10*3/uL MPV (9.4-12.4) fL Immature Gran % (Auto) (0.0-0.4) % Neut % (Auto) (45-73) % Lymph % (Auto) (20-40) % [place] % (Auto) (2-11) % Eos % (Auto) (0-4) % Baso % (Auto) (0-2) % Lymph # (Auto) (1.2-4.9) X10*3/uL [place] # (Auto) (0.1-1.2) X10*3/uL Eos # (Auto) (0.0-0.4) X10*3/uL Baso # (Auto) (0.0-0.2) X10*3/uL Abs Immat Gran (auto) (0.00-0.03) X10*3/uL Absolute Neuts (auto) (2.0-8.3) x10*3/uL Absolute Nucleated RBC (0.0-0.012) X10*3/uL Nucleated RBC % (auto) (0.0-0.2) /100WBC PT (10.0-13.1) SEC INR (0.9-1.1) Sodium (135-145) mmol/L Potassium (3.3-5.1) mmol/L Chloride (96-108) mmol/L Carbon Dioxide (22-29) mmol/L Anion Gap (12-20) BUN (9-16) mg/dL Creatinine (0.5-1.4) mg/dL Estim Creat Clear Calc Estimated GFR POC Glucose 148 H (60-115) mg/dL Random Glucose (60-115) mg/dL Calcium (8.4-10.2) mg/dL Magnesium (1.6-2.6) mg/dL Total Bilirubin (0.0-1.0) mg/dL AST (5-37) U/L ALT (0-40) U/L Alkaline Phosphatase (39-117) U/L Total Protein (6.5-8.0) g/dL Albumin (3.5-5.0) g/dL Lipase (8-78) U/L Urine Color Yellow Urine Appearance Clear Urine pH 5.5 (5.0-9.0) Ur Specific [place] >= 1.030 H (1.005-1.025) Urine Protein 30 (1+) H (Neg-Trace) mg/dL Urine Glucose (UA) >=1000 H (Negative) mg/dL Urine Ketones 40 (Negative) mg/dL Urine Blood Negative (Negative) Urine Nitrite Negative (Negative) Ur Leukocyte Esterase Negative (Negative) Urine RBC 0-2 (0-2) /HPF Urine WBC 0-5 (0-5) /HPF Ur Squamous Epith Cells 0-2 (0-2) /HPF Urine Bacteria None Seen (None Seen) Hyaline Casts 0-2 (0-2) /LPF Urine Opiates Screen POSITIVE H (Not Detect) Urine Fentanyl Screen Not Detected (Not Detect) Ur Barbiturates Screen Not Detected (Not Detect) Ur Phencyclidine Scrn Not Detected (Not Detect) Ur Amphetamines Screen Not Detected (Not Detect) U Benzodiazepines Scrn Not Detected (Not Detect) Urine Cocaine Screen Not Detected (Not Detect) U Marijuana (THC) Screen POSITIVE H (Not Detect) Acetone, Qual (Negative) Influenza Type A (PCR) (Negative) Influenza Type B (PCR) (Negative) RSV RNA Qual (PCR) (Negative) SARS-CoV-2 RNA (RT-PCR) (Negative) S. pyogenes GrpA MARCUS (Negative) 09/24/22 09/24/22 Range/Units 20:32 20:35 WBC (4.8-10.8) X10*3/uL RBC (4.60-5.80) X10*6/uL Hgb (14.0-18.0) g/dl Hct (42.0-52.0) % MCV (80.0-98.0) fL MCH (27.0-33.0) pg MCHC (31.0-36.0) g/dl RDW (11.0-16.0) % Plt Count (160-400) X10*3/uL MPV (9.4-12.4) fL Immature Gran % (Auto) (0.0-0.4) % Neut % (Auto) (45-73) % Lymph % (Auto) (20-40) % [place] % (Auto) (2-11) % Eos % (Auto) (0-4) % Baso % (Auto) (0-2) % Lymph # (Auto) (1.2-4.9) X10*3/uL [place] # (Auto) (0.1-1.2) X10*3/uL Eos # (Auto) (0.0-0.4) X10*3/uL Baso # (Auto) (0.0-0.2) X10*3/uL Abs Immat Gran (auto) (0.00-0.03) X10*3/uL Absolute Neuts (auto) (2.0-8.3) x10*3/uL Absolute Nucleated RBC (0.0-0.012) X10*3/uL Nucleated RBC % (auto) (0.0-0.2) /100WBC PT (10.0-13.1) SEC INR (0.9-1.1) Sodium 140 (135-145) mmol/L Potassium 3.6 (3.3-5.1) mmol/L Chloride 104 (96-108) mmol/L Carbon Dioxide 24 (22-29) mmol/L Anion Gap 16 (12-20) BUN 21 H (9-16) mg/dL Creatinine 1.29 (0.5-1.4) mg/dL Estim Creat Clear Calc 78.3 Estimated GFR > 60 POC Glucose 101 (60-115) mg/dL Random Glucose 107 (60-115) mg/dL Calcium 9.1 D (8.4-10.2) mg/dL Magnesium (1.6-2.6) mg/dL Total Bilirubin (0.0-1.0) mg/dL AST (5-37) U/L ALT (0-40) U/L Alkaline Phosphatase (39-117) U/L Total Protein (6.5-8.0) g/dL Albumin (3.5-5.0) g/dL Lipase (8-78) U/L Urine Color Urine Appearance Urine pH (5.0-9.0) Ur Specific [place] (1.005-1.025) Urine Protein (Neg-Trace) mg/dL Urine Glucose (UA) (Negative) mg/dL Urine Ketones (Negative) mg/dL Urine Blood (Negative) Urine Nitrite (Negative) Ur Leukocyte Esterase (Negative) Urine RBC (0-2) /HPF Urine WBC (0-5) /HPF Ur Squamous Epith Cells (0-2) /HPF Urine Bacteria (None Seen) Hyaline Casts (0-2) /LPF Urine Opiates Screen (Not Detect) Urine Fentanyl Screen (Not Detect) Ur Barbiturates Screen (Not Detect) Ur Phencyclidine Scrn (Not Detect) Ur Amphetamines Screen (Not Detect) U Benzodiazepines Scrn (Not Detect) Urine Cocaine Screen (Not Detect) U Marijuana (THC) Screen (Not Detect) Acetone, Qual (Negative) Influenza Type A (PCR) (Negative) Influenza Type B (PCR) (Negative) RSV RNA Qual (PCR) (Negative) SARS-CoV-2 RNA (RT-PCR) (Negative) S. pyogenes GrpA MARCUS (Negative) <Lizzette Cuevas MD - Last Filed: 09/24/22 21:13> Discharge Plan Discharge Clinical Impression: Hyperglycemia due to type 2 diabetes mellitus <ROSAURA Loyd - Last Filed: 09/24/22 14:51> Patient Disposition: Home, Self-Care <ROSAURA Loyd - Last Filed: 09/24/22 14:51> Instructions: Diabetic Hyperglycemia (ED) <ROSAURA Loyd - Last Filed: 09/24/22 14:51> Additional Instructions: Please follow-up with your primary care physician tomorrow. If you have any worsening or new symptoms, please return to the emergency room or call 911 <ROSAURA Loyd - Last Filed: 09/24/22 14:51> Prescriptions: No Action promethazine 25 mg suppository 25 mg VA Q6H PRN (Reason: nausea and vomiting) Qty: 12 0RF metoclopramide HCl [Reglan] 10 mg tablet 10 mg PO Q6H PRN (Reason: nausea and vomiting) Qty: 90 0RF lorazepam [Ativan] 1 mg tablet 1 mg PO BEDTIME PRN (Reason: anxiety) Qty: 14 0RF sertraline 25 mg tablet 25 mg PO DAILY pantoprazole 40 mg tablet,delayed release (DR/EC) 1 tab PO DAILY insulin lispro protamin-lispro 100 unit/mL (75-25) insulin pen 60 unit subcut BID ondansetron HCl 8 mg tablet 8 mg PO Q8H PRN (Reason: nausea and vomiting) 5 Days Qty: 15 0RF ondansetron 8 mg tablet,disintegrating 8 mg PO Q8H PRN (Reason: nausea and vomiting) 5 Days Qty: 15 0RF promethazine [Promethegan] 25 mg suppository 25 mg VA Q6H PRN (Reason: nausea and vomiting) Qty: 20 0RF <ROSAURA Loyd - Last Filed: 09/24/22 14:51> Stand Alone Forms: Work/School Release <ROSAURA Loyd - Last Filed: 09/24/22 14:51>
[2022-09-24 14:55] LABS: Glucose, Whole Blood 558 mg/dL (60-115)
[2022-09-24 15:58] LABS: MANUAL DIFF FLAG NO
[2022-09-24 16:00] LABS: Basophils Absolute Auto 0.1 X10*3/uL (0.0-0.2); Basophils Percent Auto 0.3 % (0-2); Eosinophils Percent Auto 0.1 % (0-4); Hemoglobin 16.4 g/dl (14.0-18.0); Imm Gran Abs Auto 0.05 X10*3/uL (0.00-0.03); Imm Gran Pct Auto 0.3 % (0.0-0.4); Lymphocytes Absolute Auto 1.5 X10*3/uL (1.2-4.9); Lymphocytes Percent Auto 9.3 % (20-40); Mean Corpuscular HGB Conc 34.2 g/dl (31.0-36.0); Mean Corpuscular Hemoglobin 28.6 pg (27.0-33.0); Mean Corpuscular Volume 83.8 fL (80.0-98.0); Mean Platelet Volume 9.8 fL (9.4-12.4); Monocytes Absolute Auto 1.2 X10*3/uL (0.1-1.2); Monocytes Percent Auto 7.3 % (2-11); Neutrophils Percent Auto 82.7 % (45-73); Platelet Count 343 X10*3/uL (160-400); Red Blood Count 5.73 X10*6/uL (4.60-5.80); Red Cell Distribution Width 12.1 % (11.0-16.0); White Blood Count 15.7 X10*3/uL (4.8-10.8)
[2022-09-24 16:07] LABS: INTERNATIONAL NORM RATIO 0.9 (0.9-1.1)
[2022-09-24] MEDS: Morphine Sulfate 2 MG/ML CARTRIDGE 1 MG IVPUSH (16:08)
[2022-09-24] MEDS: Metoclopramide HCl 10 MG/2 ML VIAL IVPUSH (16:08)
[2022-09-24 16:10] LABS: Acetone, serum QL Small (Negative)
[2022-09-24] MEDS: 0.9 % Sodium Chloride 2,000 ML 999 ML IVCONT (16:13)
[2022-09-24 16:18] LABS: Alanine Aminotransferase 14 U/L (0-40); Albumin Level 4.9 g/dL (3.5-5.0); Alkaline Phosphatase 93 U/L (39-117); Anion Gap 21 (12-20); Aspartate Amino Transferase 12 U/L (5-37); Bilirubin Total 1.1 mg/dL (0.0-1.0); Blood Urea Nitrogen 26 mg/dL (9-16); Calcium 10.1 mg/dL (8.4-10.2); Carbon Dioxide 25 mmol/L (22-29); Chloride 91 mmol/L (96-108); Creatinine Clr Calc Pharmacy 55.8; Estimated Glomerular Filt Rate 46; Glucose Random 422 mg/dL (60-115); Lipase 12 U/L (8-78); Magnesium 2.8 mg/dL (1.6-2.6); Sodium 133 mmol/L (135-145); Total Protein 7.8 g/dL (6.5-8.0)
--- NOTE | 2022-09-24 16:22 | PC.NURSE ---
pt resting on stretcher at this time, in 05/17 pain. morphine, reglan and fluids administered per OCT. 20g placed in LAC
[2022-09-24] MEDS: Insulin Regular, Human 100 UNIT/ML 3 ML VIAL 10 UNIT IVPUSH (16:26)
[2022-09-24 16:48] LABS: Influenza A PCR NEGATIVE (Negative); Influenza B PCR NEGATIVE (Negative); Resp Syncy Virus RNA Qual PCR NEGATIVE (Negative); SARS COV2 PCR INHOUSE NEGATIVE (Negative)
--- NOTE | 2022-09-24 17:00 | PC.NURSE ---
pt verbalizes increase in pain and no relief with morphine. Dr. Cuevas is aware
[2022-09-24 17:03] LABS: IDNOW Serial# 6674DD1D; Strep A Nucleic Acid Negative (Negative)
--- NOTE | 2022-09-24 17:29 | PC.NURSE ---
pt attempted to give urine sample, unsuccessful at this time
[2022-09-24 18:55] LABS: Glucose, Whole Blood 148 mg/dL (60-115)
--- NOTE | 2022-09-24 19:07 | PC.NURSE ---
pt reports continued pain, still unable to provide urine sample at this time
[2022-09-24 20:14] VITALS: BP 131/78; PULSE 106; RESP 16; O2SAT 98
[2022-09-24 20:32] LABS: Appearance Urine Clear; Color Urine Yellow; Glucose Urine UA >=1000 mg/dL (Negative); Leukocyte Esterase Urine Negative (Negative); Nitrite Urine Negative (Negative); PH 5.5 (5.0-9.0); Specific Gravity - Urine >= 1.030 (1.005-1.025); UMIC TRIGGER UACC YES; Urine Blood Negative (Negative); Urine Ketones 40 mg/dL (Negative); Urine Protein 30 (1+) mg/dL (Neg-Trace)
[2022-09-24 20:36] LABS: Bacteria Urine None Seen (None Seen); Hyaline Casts Urine 0-2 /LPF (0-2); RBC Urine 0-2 /HPF (0-2); Squamous Epithelial Cell Urine 0-2 /HPF (0-2); WBC Urine 0-5 /HPF (0-5)
[2022-09-24 20:38] LABS: Glucose, Whole Blood 101 mg/dL (60-115)
[2022-09-24 20:41] LABS: Amphetamine Screen Urine Not Detected (Not Detect); Barbiturates, Urine Not Detected (Not Detect); Benzodiazepines Screen Urine Not Detected (Not Detect); Cannabinoid Screen Urine POSITIVE (Not Detect); Cocaine Screen Urine Not Detected (Not Detect); Fentanyl, urine Not Detected (Not Detect); Opiate Screen Urine POSITIVE (Not Detect); Phencyclidine Screen Urine Not Detected (Not Detect)
[2022-09-24 20:54] LABS: Anion Gap 16 (12-20); Blood Urea Nitrogen 21 mg/dL (9-16); Calcium 9.1 mg/dL (8.4-10.2); Carbon Dioxide 24 mmol/L (22-29); Chloride 104 mmol/L (96-108); Creatinine Clr Calc Pharmacy 78.3; Estimated Glomerular Filt Rate > 60; Glucose Random 107 mg/dL (60-115); Potassium 3.6 mmol/L (3.3-5.1); Sodium 140 mmol/L (135-145)
== END 2022-09-24 21:28 | disposition home or self-care (01) ==
PROVIDERS: Physician Assistant Medical; Emergency Provider Emergency Medicine; PCP Internal Medicine
DX: E11.65 Type 2 diabetes mellitus with hyperglycemia (principal); Z20.822 Contact with and (suspected) exposure to COVID-19; Z20.828 Contact with and (suspected) exposure to other viral communicable diseases; F12.188 Cannabis abuse with other cannabis-induced disorder; Z79.899 Other long term (current) drug therapy; Z79.4 Long term (current) use of insulin
CPT/HCPCS: 0241U; 36415; 80048; 80053; 80307; 81001; 82009; 82947; 83690; 83735; 85025; 85610; 87651; 96361; 96374; 96375; 99284; J2270; J2765

== ENCOUNTER 2022-09-26 00:11 | Emergency (ER) | payer OTHER, SELFPAY ==
[2022-09-26 00:15] VITALS: BP 143/94; PULSE 97; RESP 18; TEMP 37.1; O2SAT 100; BMI 26.6
--- NOTE | 2022-09-26 00:28 | ECG_ITS ---
Test Reason : CHEST PAIN Blood Pressure : / mmHG Vent. Rate : 101 BPM Atrial Rate : 101 BPM P-R Int : 126 ms QRS Dur : 078 ms QT Int : 326 ms P-R-T Axes : 029 038 005 degrees QTc Int : 422 ms Sinus tachycardia Nonspecific T wave abnormality Abnormal ECG When compared with ECG of 23-AUG-2022 12:15, Vent. rate has increased BY 51 BPM Nonspecific T wave abnormality, worse in Lateral leads Referred By: Generic ED Physician Electronically Signed By:Roberto Agee
[2022-09-26 00:31] LABS: Glucose, Whole Blood 332 mg/dL (60-115)
[2022-09-26 00:49] LABS: Basophils Percent Auto 0.4 % (0-2); Eosinophils Percent Auto 0.1 % (0-4); Hematocrit 43.8 % (42.0-52.0); Hemoglobin 14.8 g/dl (14.0-18.0); Imm Gran Abs Auto 0.02 X10*3/uL (0.00-0.03); Imm Gran Pct Auto 0.2 % (0.0-0.4); Lymphocytes Absolute Auto 1.6 X10*3/uL (1.2-4.9); Lymphocytes Percent Auto 19.9 % (20-40); MANUAL DIFF FLAG NO; Mean Corpuscular HGB Conc 33.8 g/dl (31.0-36.0); Mean Corpuscular Hemoglobin 28.4 pg (27.0-33.0); Mean Corpuscular Volume 84.1 fL (80.0-98.0); Mean Platelet Volume 9.5 fL (9.4-12.4); Monocytes Percent Auto 11.7 % (2-11); Neutrophils Absolute Auto 5.6 x10*3/uL (2.0-8.3); Neutrophils Percent Auto 67.7 % (45-73); Platelet Count 289 X10*3/uL (160-400); Red Blood Count 5.21 X10*6/uL (4.60-5.80); Red Cell Distribution Width 11.9 % (11.0-16.0); White Blood Count 8.2 X10*3/uL (4.8-10.8)
[2022-09-26 01:04] LABS: Anion Gap 21 (12-20); Blood Urea Nitrogen 15 mg/dL (9-16); Calcium 9.2 mg/dL (8.4-10.2); Carbon Dioxide 21 mmol/L (22-29); Chloride 95 mmol/L (96-108); Creatinine Clr Calc Pharmacy 84.8; Estimated Glomerular Filt Rate > 60; Glucose Random 328 mg/dL (60-115); Potassium 4.5 mmol/L (3.3-5.1); Sodium 132 mmol/L (135-145)
--- NOTE | 2022-09-26 01:06 | ED.GENADULT ---
HPI - General Adult General Chief complaint: General Medical Stated complaint: seen yesterday for dehydration, still symptomatic Time Seen by Provider: 09/26/22 01:06 Source: patient Mode of arrival: ambulatory Limitations: no limitations History of Present Illness HPI narrative: Patient with frequent vomiting episodes secondary to diabetic gastroparesis/cannabis induced hyperemesis syndrome been here frequently for same seen here 2 days ago used marijuana 4 days ago since then been sick POC was 330 on arrival patient took insulin prior. No diarrhea no abdominal pain no fever or chills Related Data Home Medications Medication Instructions Recorded Confirmed sertraline 25 mg tablet 25 mg PO DAILY 12/28/21 06/17/22 pantoprazole 40 mg tablet,delayed 1 tab PO DAILY 03/15/22 06/17/22 release insulin lispro protamine-lispro 60 unit subcut BID 04/30/22 06/17/22 100 unit/mL (75-25) subcutaneous pen Previous Rx's Medication Instructions Recorded ondansetron HCl 8 mg tablet 8 mg PO Q8H PRN nausea and 06/19/22 vomiting 5 days #15 tabs ondansetron 8 mg disintegrating 8 mg PO Q8H PRN nausea and 07/11/22 tablet vomiting 5 days #15 tabs promethazine 25 mg rectal 25 mg FL Q6H PRN nausea and 08/03/22 suppository (Promethegan) vomiting #20 ea promethazine 25 mg rectal 25 mg FL Q6H PRN nausea and 08/23/22 suppository vomiting #12 ea lorazepam 1 mg tablet (Ativan) 1 mg PO BEDTIME PRN anxiety #14 08/28/22 tabs metoclopramide HCl 10 mg tablet 10 mg PO Q6H PRN nausea and 08/28/22 (Reglan) vomiting #90 tabs Allergies Allergy/AdvReac Type Severity Reaction Status Date / Time passion fruit [PASSION FRUIT] Allergy Unknown UNK Verified 08/03/22 16:35 Review of Systems Review of Systems: Yes all other systems are reviewed and are negative PMFSH Past Medical History Medical History Cyclical vomiting Diabetes Diabetic gastroparesis Diabetic keto-acidosis Esophageal ulcer Gastroparesis Leukocytosis Noncompliance with medication regimen Persistent hyperactive cannabis intoxication delirium Surgical History No pertinent past surgical history Family History Family History Other No family history of coronary artery disease Social History Social History Household Members: None Housing: Apartment Do you presently have visiting nurse or other home services: No Alcohol intake: never Patient Tobacco Use Status: Never used Tobacco Smoked in Last 30 Days: Yes Use of substances other than those prescribed or required for medical reasons: No Substance Use Type: Marijuana Advance Directives: Yes Advance Directives on File: Yes Advance Directives Date on File: 01/22/21 service: No Current occupational status: employed Physical Exam ED Vital Signs: Vital Signs - 24 hr 09/26/22 00:15 09/26/22 02:05 09/26/22 03:29 Temperature 98.8 F 99.2 F 97.9 F Pulse Rate 97 88 76 Respiratory Rate 18 16 17 Blood Pressure 143/94 H 148/100 H 120/70 Pulse Oximetry 100 100 99 Oxygen Delivery Method Room Air Room Air Room Air BMI result Body Mass Index 26.6 Appearance: Alert. Oriented X3. Anxious Eyes: No pallor or icterus ENT: Pharynx normal. Oral Mucosa moist Neck: Normal inspection. Neck supple. CVS: Normal heart rate and rhythm. Pulses normal. Respiratory: No respiratory distress. Equal air entry bilateral, no wheezing/rales/rhonchi Abdomen: Soft, mild epigastric tenderness. Bowel sounds are present, no mass palpable, no CVA tenderness Skin: Skin warm and dry. Normal skin color. Normal skin turgor. Extremities: No lower extremity edema. No calf tenderness Neuro: Oriented X 3. No motor deficit. Medications Administered Discontinued Medications Generic Name Dose Route Start Last Admin Trade Name Freq PRN Reason Stop Dose Admin Famotidine 20 mg 09/26/22 03:40 09/26/22 03:57 Famotidine/Pf 20 Mg/2 Ml Vial IVPUSH 09/26/22 03:41 20 mg ONCE ONE Administration Sodium Chloride 1,000 mls @ 999 mls/hr 09/26/22 01:09 09/26/22 02:42 Ns IV 09/26/22 02:09 Infused .Q1H1M ONE Infusion Sodium Chloride 1,000 mls @ 999 mls/hr 09/26/22 01:24 09/26/22 02:42 Ns IV 09/26/22 02:24 Infused .Q1H1M ONE Infusion Ketorolac Tromethamine 30 mg 09/26/22 01:55 09/26/22 02:12 Ketorolac Tromethamine 30 Mg/Ml Vial IVPUSH 09/26/22 01:56 30 mg ONCE ONE Administration Lorazepam 1 mg 09/26/22 01:09 09/26/22 02:10 Lorazepam 2 Mg/Ml Vial IVPUSH 09/26/22 01:10 1 mg ONCE ONE Administration Prochlorperazine Edisylate 10 mg 09/26/22 01:09 09/26/22 02:12 Prochlorperazine Edisylate 10 Mg/2 Ml Vial IVPUSH 09/26/22 01:10 10 mg ONCE ONE Administration Medical Decision Making Medical Decision Making MDM Narrative: Patient with frequent here with for cyclic vomiting syndrome likely from gastroparesis versus cannabis induced stable labs improved after IV hydration Ativan which helped patient home advised to continue Ativan and take Zofran for vomiting Lab Data MDM Lab Attestation statement: I reviewed the patient's lab results. 09/26/22 00:44 09/26/22 00:44 Labs: Lab Results 09/26/22 09/26/22 09/26/22 Range/Units 00:26 00:44 00:44 WBC 8.2 (4.8-10.8) X10*3/uL RBC 5.21 (4.60-5.80) X10*6/uL Hgb 14.8 (14.0-18.0) g/dl Hct 43.8 (42.0-52.0) % MCV 84.1 (80.0-98.0) fL MCH 28.4 (27.0-33.0) pg MCHC 33.8 (31.0-36.0) g/dl RDW 11.9 (11.0-16.0) % Plt Count 289 (160-400) X10*3/uL MPV 9.5 (9.4-12.4) fL Immature Gran % (Auto) 0.2 (0.0-0.4) % Neut % (Auto) 67.7 (45-73) % Lymph % (Auto) 19.9 L (20-40) % [place] % (Auto) 11.7 H (2-11) % Eos % (Auto) 0.1 (0-4) % Baso % (Auto) 0.4 (0-2) % Lymph # (Auto) 1.6 (1.2-4.9) X10*3/uL [place] # (Auto) 1.0 (0.1-1.2) X10*3/uL Eos # (Auto) 0.0 (0.0-0.4) X10*3/uL Baso # (Auto) 0.0 (0.0-0.2) X10*3/uL Abs Immat Gran (auto) 0.02 (0.00-0.03) X10*3/uL Absolute Neuts (auto) 5.6 (2.0-8.3) x10*3/uL Absolute Nucleated RBC 0.000 (0.0-0.012) X10*3/uL Nucleated RBC % (auto) 0.0 (0.0-0.2) /100WBC Sodium 132 L (135-145) mmol/L Potassium 4.5 D (3.3-5.1) mmol/L Chloride 95 L (96-108) mmol/L Carbon Dioxide 21 L (22-29) mmol/L Anion Gap 21 H (12-20) BUN 15 (9-16) mg/dL Creatinine 1.19 (0.5-1.4) mg/dL Estim Creat Clear Calc 84.8 Estimated GFR > 60 POC Glucose 332 H (60-115) mg/dL Random Glucose 328 H (60-115) mg/dL Calcium 9.2 (8.4-10.2) mg/dL Troponin I High Sens (<3.5-35.0) ng/L 09/26/22 09/26/22 Range/Units 00:44 03:30 WBC (4.8-10.8) X10*3/uL RBC (4.60-5.80) X10*6/uL Hgb (14.0-18.0) g/dl Hct (42.0-52.0) % MCV (80.0-98.0) fL MCH (27.0-33.0) pg MCHC (31.0-36.0) g/dl RDW (11.0-16.0) % Plt Count (160-400) X10*3/uL MPV (9.4-12.4) fL Immature Gran % (Auto) (0.0-0.4) % Neut % (Auto) (45-73) % Lymph % (Auto) (20-40) % [place] % (Auto) (2-11) % Eos % (Auto) (0-4) % Baso % (Auto) (0-2) % Lymph # (Auto) (1.2-4.9) X10*3/uL [place] # (Auto) (0.1-1.2) X10*3/uL Eos # (Auto) (0.0-0.4) X10*3/uL Baso # (Auto) (0.0-0.2) X10*3/uL Abs Immat Gran (auto) (0.00-0.03) X10*3/uL Absolute Neuts (auto) (2.0-8.3) x10*3/uL Absolute Nucleated RBC (0.0-0.012) X10*3/uL Nucleated RBC % (auto) (0.0-0.2) /100WBC Sodium (135-145) mmol/L Potassium (3.3-5.1) mmol/L Chloride (96-108) mmol/L Carbon Dioxide (22-29) mmol/L Anion Gap (12-20) BUN (9-16) mg/dL Creatinine (0.5-1.4) mg/dL Estim Creat Clear Calc Estimated GFR POC Glucose 143 H (60-115) mg/dL Random Glucose (60-115) mg/dL Calcium (8.4-10.2) mg/dL Troponin I High Sens < 3.5 (<3.5-35.0) ng/L Discharge Plan Discharge Clinical Impression: Cannabis hyperemesis syndrome concurrent with and due to cannabis abuse Patient Disposition: Home, Self-Care Additional Instructions: Drink plenty of fluids Stop using marijuana Take Ativan which you have 1 mg every 6-8 hours as needed continue Reglan as prescribed Follow-up with GI Prescriptions: No Action promethazine 25 mg suppository 25 mg FL Q6H PRN (Reason: nausea and vomiting) Qty: 12 0RF metoclopramide HCl [Reglan] 10 mg tablet 10 mg PO Q6H PRN (Reason: nausea and vomiting) Qty: 90 0RF lorazepam [Ativan] 1 mg tablet 1 mg PO BEDTIME PRN (Reason: anxiety) Qty: 14 0RF sertraline 25 mg tablet 25 mg PO DAILY pantoprazole 40 mg tablet,delayed release (DR/EC) 1 tab PO DAILY insulin lispro protamin-lispro 100 unit/mL (75-25) insulin pen 60 unit subcut BID ondansetron HCl 8 mg tablet 8 mg PO Q8H PRN (Reason: nausea and vomiting) 5 Days Qty: 15 0RF ondansetron 8 mg tablet,disintegrating 8 mg PO Q8H PRN (Reason: nausea and vomiting) 5 Days Qty: 15 0RF promethazine [Promethegan] 25 mg suppository 25 mg FL Q6H PRN (Reason: nausea and vomiting) Qty: 20 0RF
[2022-09-26 01:09] LABS: Troponin-I High Sensitivity < 3.5 ng/L (<3.5-35.0)
[2022-09-26] MEDS: 0.9 % Sodium Chloride 1,000 ML 999 ML IV ×2 (01:41)
[2022-09-26 02:05] VITALS: BP 148/100; PULSE 88; RESP 16; TEMP 37.3; O2SAT 100
[2022-09-26] MEDS: LORazepam 2 MG/ML VIAL 1 MG IVPUSH (02:10)
[2022-09-26] MEDS: Ketorolac Tromethamine 30 MG/ML VIAL IVPUSH (02:12)
[2022-09-26] MEDS: Prochlorperazine Edisylate 10 MG/2 ML VIAL IVPUSH (02:12)
--- NOTE | 2022-09-26 02:16 | PC.NURSE ---
PT medicated per mar
[2022-09-26 03:29] VITALS: BP 120/70; PULSE 76; RESP 17; TEMP 36.6; O2SAT 99
--- NOTE | 2022-09-26 03:35 | MHC.EDTECH ---
POC @ [address] Riggins made aware
[2022-09-26 03:37] LABS: Glucose, Whole Blood 143 mg/dL (60-115)
[2022-09-26] MEDS: Famotidine/PF 20 MG/2 ML VIAL IVPUSH (03:57)
== END 2022-09-26 04:51 | disposition home or self-care (01) ==
PROVIDERS: Emergency Provider Internal Medicine; PCP Internal Medicine
DX: R07.89 Other chest pain (principal); E86.0 Dehydration; F12.10 Cannabis abuse, uncomplicated; R11.10 Vomiting, unspecified; Z79.899 Other long term (current) drug therapy
CPT/HCPCS: 36415; 80048; 82947; 84484; 85025; 93005; 96361; 96374; 96375; 99285; J1885; J2060

== ENCOUNTER 2022-10-07 13:02 | Observation (INO) | payer OTHER, SELFPAY ==
[2022-10-07 13:11] VITALS: BP 150/95; PULSE 103; RESP 20; TEMP 37.3; O2SAT 99; BMI 25.8
--- NOTE | 2022-10-07 13:11 | ED_ITS ---
HPI - General Adult General Chief complaint: Nausea/Vomiting/Diarrhea <Winston Infante - Last Filed: 10/07/22 13:15> Stated complaint: dehyration, vomting <Winston Infante - Last Filed: 10/07/22 13:15> Time Seen by Provider: 10/07/22 19:06 <Winston Infante - Last Filed: 10/07/22 13:15> Source: patient <Cecy Ward NP - Last Filed: 10/08/22 01:47> Mode of arrival: ambulatory <Cecy Ward NP - Last Filed: 10/08/22 01:47> Limitations: no limitations <Cecy Ward NP - Last Filed: 10/08/22 01:47> History of Present Illness HPI narrative: 27-year-old male presents with nausea, vomiting, abdominal pain, and elevated glucose for approximately 2 days. States that he has these symptoms a few times a month and presents to the emergency department for IV hydration, pain management, and sometimes requires admission. <Cecy Ward NP - Last Filed: 10/08/22 01:47> Onset (ago): day(s) (2) <Cecy Ward NP - Last Filed: 10/08/22 01:47> Radiation: non-radiation <Cecy Ward NP - Last Filed: 10/08/22 01:47> Severity: moderate <Cecy Ward NP - Last Filed: 10/08/22 01:47> Severity scale (1-10): 5 <Cecy Ward NP - Last Filed: 10/08/22 01:47> Quality: aching <Cecy Ward NP - Last Filed: 10/08/22 01:47> Pain Consistency: constant <Cecy Ward NP - Last Filed: 10/08/22 01:47> Relieving factors: none <Cecy Ward NP - Last Filed: 10/08/22 01:47> Exacerbating factors: eating and movement <Cecy Ward NP - Last Filed: 10/08/22 01:47> Associated symptoms: loss of appetite and nausea/vomiting <Cecy Ward NP - Last Filed: 10/08/22 01:47> Treatments prior to arrival: none <Cecy Ward NP - Last Filed: 10/08/22 01:47> Related Data Home medications: Home Medications Medication Instructions Recorded Confirmed pantoprazole 40 mg tablet,delayed 1 tab PO DAILY 03/15/22 10/07/22 release insulin lispro protamine-lispro 50 unit subcut BID 04/30/22 10/07/22 100 unit/mL (75-25) subcutaneous pen Previous Rx's Medication Instructions Recorded lorazepam 1 mg tablet (Ativan) 1 mg PO BEDTIME PRN anxiety #14 08/28/22 tabs <Winston Infante - Last Filed: 10/07/22 13:15> Allergies/adverse reactions: Allergies Allergy/AdvReac Type Severity Reaction Status Date / Time passion fruit [PASSION FRUIT] Allergy Unknown UNK Verified 08/03/22 16:35 <Winston Infante - Last Filed: 10/07/22 13:15> Review of Systems Review of Systems: Constitutional: No Fever, No Chills Cardiovascular: No Chest Pain, No SOB Respiratory: No Cough, No Dyspnea Gastrointestinal: Pause Nausea, phos Vomiting, No Diarrhea, phos abdominal Pain Genitourinary: No Dysuria, No Hematuria Musculoskeletal: No joint pain, No Myalgias, No Joint Swelling Skin: No Skin lacerations, No rash Neuro: No Weakness, No Dizziness, pop Headache <AMY Bauman Last Filed: 10/08/22 01:47> Yes all other systems are reviewed and are negative <Cecy Ward NP - Last Filed: 10/08/22 01:47> [facility] Past Medical History Attestation statement: The following information was validated with the patient. <AMY Bauman Last Filed: 10/08/22 01:47> Source: old records reviewed <Cecy Ward NP - Last Filed: 10/08/22 01:47> Medical History: Medical History Cyclical vomiting Diabetes Diabetic gastroparesis Diabetic keto-acidosis Esophageal ulcer Gastroparesis Leukocytosis Noncompliance with medication regimen Persistent hyperactive cannabis intoxication delirium <Winston Infante - Last Filed: 10/07/22 13:15> Surgical History: Surgical History No pertinent past surgical history <Winston Marcelay - Last Filed: 10/07/22 13:15> Family History Family History: Family History Other No family history of coronary artery disease <Winston Marcelay - Last Filed: 10/07/22 13:15> Social History Social History: Social History Household Members: None Housing: Apartment Do you presently have visiting nurse or other home services: No Alcohol intake: never Patient Tobacco Use Status: Never used Tobacco Substance Use Type: Marijuana Advance Directives: Yes Advance Directives on File: Yes Advance Directives Date on File: 01/22/21 service: No Current occupational status: employed <Winston Marcelay - Last Filed: 10/07/22 13:15> Physical Exam ED Vital Signs: Vital Signs - 24 hr 10/07/22 13:11 10/07/22 19:08 10/07/22 21:26 Temperature 99.2 F 98.9 F 99.0 F Pulse Rate 103 H 86 88 Respiratory Rate 20 16 14 Blood Pressure 150/95 H 139/88 146/88 H Pulse Oximetry 99 99 96 Oxygen Delivery Method Room Air Room Air Room Air BMI result Body Mass Index 25.8 <Winston Marcelay - Last Filed: 10/07/22 13:15> Vital Signs - 24 hr 10/07/22 13:11 10/07/22 19:08 10/07/22 21:26 Temperature 99.2 F 98.9 F 99.0 F Pulse Rate 103 H 86 88 Respiratory Rate 20 16 14 Blood Pressure 150/95 H 139/88 146/88 H Pulse Oximetry 99 99 96 Oxygen Delivery Method Room Air Room Air Room Air BMI result Body Mass Index 25.8 <Cecy Ward NP - Last Filed: 10/08/22 01:47> Appearance: Alert. Oriented X3. Moderate distress. Eyes: Pupils equal, round and reactive to light. Sclera nonicteric. ENT: Pharynx normal. Dry mucous membranes Neck: Normal inspection. Neck supple. CVS: Tachycardic heart rate and rhythm. Pulses normal. Respiratory: No respiratory distress. Abdomen: Soft and diffusely tender. Skin: Skin warm and dry. Normal skin color. . Extremities: Gait balanced and coordinated. Neuro: No motor deficit. No sensory deficit. Cranial nerves 2-12 intact <Cecy Ward NP - Last Filed: 10/08/22 01:47> Course Course Course Narrative: RME- 27 year old male past medical history Jimenez type 2 diabetes, cannabis hyperemesis syndrome, but currently presents for evaluation of vomiting and dehydration. Patient reports he had you again of vomiting the since yesterday. He is unsure if she has DKA. He appears well in triage. Glucose 338 in triage Plan for labs including serum acetone <Winston Infante - Last Filed: 10/07/22 13:15> RME- 27 year old male past medical history Jimenez type 2 diabetes, cannabis hyperemesis syndrome, but currently presents for evaluation of vomiting and dehydration. Patient reports he had you again of vomiting the since yesterday. He is unsure if she has DKA. He appears well in triage. Glucose 338 in triage Plan for labs including serum acetone 27-year-old male presents with 2 days of abdominal pain, nausea, vomiting, elevated glucose, unable to tolerate p.o. fluids. Patient states that this occurs a couple times a month, and sometimes he needs to be admitted. Patient states that he needs pain management with morphine. A review of records indicates that this patient has a history of cyclic vomiting syndrome most likely related to marijuana use, and diabetic acidosis without elevated anion gap. Presents proximally twice a month, and is given IV pain medications. He has had multiple exams with negative workups. At this time, I do not feel that IV opioid management is appropriate, will give Reglan, Benadryl, fluids, and Pepcid. Patient states that pain persists, will give IV Toradol. Patient is still unable to tolerate p.o. fluids. I did discuss my concerns with the hospitalist, I do not feel that opioids are a ppropriate for his presentation as he does not have any clinical indication for opioid pain management. Hospitalist agrees, patient states that he is unable to tolerate fluids and has severe abdominal pain. Will have patient admitted to the hospitalist group for intractable nausea and vomiting and abdominal pain. I highly recommend that providers in the future do not provide this patient with opioid IV pain management as I feel that there is a pattern of habit. <Cecy Ward NP - Last Filed: 10/08/22 01:47> Medications Administered Generic Name Dose Route Start Last Admin Trade Name Freq PRN Reason Stop Dose Admin Capsaicin 1 appl 10/07/22 22:00 10/07/22 23:17 Capsaicin 0.025% Cream 60 Gm Tube TOPICAL Not Given BID DESTINY Protocol Enoxaparin Sodium 40 mg 10/07/22 23:00 10/07/22 23:13 Enoxaparin Sodium 40 Mg/0.4 Ml Syringe SUBCUT 40 mg Q24H DESTINY Administration Insulin Glargine 30 unit 10/07/22 22:05 10/07/22 23:12 Insulin Glargine,Hum.Rec.Anlog 100 Unit/Ml 10 Ml Vial SUBCUT 30 unit BEDTIME DESTINY Administration Sodium Chloride 3 ml 10/08/22 00:00 10/08/22 01:24 0.9 % Sodium Chloride Flush 3 Ml Syringe IVFLUSH 3 ml QSHIFT DESTINY Administration Discontinued Medications Generic Name Dose Route Start Last Admin Trade Name Freq PRN Reason Stop Dose Admin Diphenhydramine HCl 12.5 mg 10/07/22 19:31 10/07/22 20:02 Diphenhydramine Hcl 50 Mg/Ml Vial IVPUSH 10/07/22 19:32 12.5 mg ONCE ONE Administration Famotidine 20 mg 10/07/22 19:32 10/07/22 20:02 Famotidine/Pf 20 Mg/2 Ml Vial IVPUSH 10/07/22 19:33 20 mg ONCE ONE Administration Sodium Chloride 1,000 mls @ 999 mls/hr 10/07/22 19:30 10/07/22 21:22 Ns IVCONT 10/07/22 20:30 Infused .Q1H1M DESTINY Infusion Sodium Chloride 1,000 mls @ 999 mls/hr 10/07/22 19:45 10/07/22 21:22 Ns IVCONT 10/07/22 20:45 Infused .Q1H1M DESTINY Infusion Insulin Human Lispro 5 unit 10/08/22 00:46 10/08/22 01:24 Insulin Lispro 100 Unit/Ml 3 Ml Vial SUBCUT 10/08/22 00:47 5 unit ONCE ONE Administration Insulin Human Regular 5 unit 10/07/22 22:16 10/07/22 23:13 Insulin Regular, Human 100 Unit/Ml 3 Ml Vial IVPUSH 10/07/22 22:17 5 unit ONCE ONE Administration Ketorolac Tromethamine 30 mg 10/07/22 21:24 10/07/22 21:33 Ketorolac Tromethamine 30 Mg/Ml Vial IVPUSH 10/07/22 21:25 30 mg ONCE ONE Administration Lorazepam 1 mg 10/07/22 22:16 10/07/22 23:13 Lorazepam 1 Mg Tablet PO 10/07/22 22:17 1 mg ONCE ONE Administration Metoclopramide HCl 10 mg 10/07/22 19:31 10/07/22 20:02 Metoclopramide Hcl 10 Mg/2 Ml Vial IVPUSH 10/07/22 19:32 10 mg ONCE ONE Administration <Winston Infante - Last Filed: 10/07/22 13:15> Medications Administered Generic Name Dose Route Start Last Admin Trade Name Freq PRN Reason Stop Dose Admin Capsaicin 1 appl 10/07/22 22:00 10/07/22 23:17 Capsaicin 0.025% Cream 60 Gm Tube TOPICAL Not Given BID [facility] Protocol Enoxaparin Sodium 40 mg 10/07/22 23:00 10/07/22 23:13 Enoxaparin Sodium 40 Mg/0.4 Ml Syringe SUBCUT 40 mg Q24H DESTINY Administration Insulin Glargine 30 unit 10/07/22 22:05 10/07/22 23:12 Insulin Glargine,Hum.Rec.Anlog 100 Unit/Ml 10 Ml Vial SUBCUT 30 unit BEDTIME DESTINY Administration Sodium Chloride 3 ml 10/08/22 00:00 10/08/22 01:24 0.9 % Sodium Chloride Flush 3 Ml Syringe IVFLUSH 3 ml QSHIFT DESTINY Administration Discontinued Medications Generic Name Dose Route Start Last Admin Trade Name Freq PRN Reason Stop Dose Admin Diphenhydramine HCl 12.5 mg 10/07/22 19:31 10/07/22 20:02 Diphenhydramine Hcl 50 Mg/Ml Vial IVPUSH 10/07/22 19:32 12.5 mg ONCE ONE Administration Famotidine 20 mg 10/07/22 19:32 10/07/22 20:02 Famotidine/Pf 20 Mg/2 Ml Vial IVPUSH 10/07/22 19:33 20 mg ONCE ONE Administration Sodium Chloride 1,000 mls @ 999 mls/hr 10/07/22 19:30 10/07/22 21:22 Ns IVCONT 10/07/22 20:30 Infused .Q1H1M DESTINY Infusion Sodium Chloride 1,000 mls @ 999 mls/hr 10/07/22 19:45 10/07/22 21:22 Ns IVCONT 10/07/22 20:45 Infused .Q1H1M DESTINY Infusion Insulin Human Lispro 5 unit 10/08/22 00:46 10/08/22 01:24 Insulin Lispro 100 Unit/Ml 3 Ml Vial SUBCUT 10/08/22 00:47 5 unit ONCE ONE Administration Insulin Human Regular 5 unit 10/07/22 22:16 10/07/22 23:13 Insulin Regular, Human 100 Unit/Ml 3 Ml Vial IVPUSH 10/07/22 22:17 5 unit ONCE ONE Administration Ketorolac Tromethamine 30 mg 10/07/22 21:24 10/07/22 21:33 Ketorolac Tromethamine 30 Mg/Ml Vial IVPUSH 10/07/22 21:25 30 mg ONCE ONE Administration Lorazepam 1 mg 10/07/22 22:16 10/07/22 23:13 Lorazepam 1 Mg Tablet PO 10/07/22 22:17 1 mg ONCE ONE Administration Metoclopramide HCl 10 mg 10/07/22 19:31 10/07/22 20:02 Metoclopramide Hcl 10 Mg/2 Ml Vial IVPUSH 10/07/22 19:32 10 mg ONCE ONE Administration <Cecy Ward NP - Last Filed: 10/08/22 01:47> Medical Decision Making Differential Diagnosis Differential Diagnoses: The differential diagnosis associated with the presentation includes <AMY Bauman Last Filed: 10/08/22 01:47> Cyclic vomiting syndrome <AMY Bauman Last Filed: 10/08/22 01:47> Admission/Observation Consideration of admission/observation: Escalation of care including admission/observation considered <AMY Bauman Last Filed: 10/08/22 01:47> If patient unable to tolerate p.o. fluids, will admit for intractable nausea and vomiting, cyclic vomiting syndrome <Cecy Ward NP - Last Filed: 10/08/22 01:47> Consult Healthcare Provider Management of the patient was discussed with: Hospitalist <Cecy Ward NP - Last Filed: 10/08/22 01:47> Lab Data MDM Lab Attestation statement: I reviewed the patient's lab results. <Cecy Ward NP - Last Filed: 10/08/22 01:47> Result Diagrams: 10/07/22 14:43 10/07/22 14:43 <Winston Infante - Last Filed: 10/07/22 13:15> Labs: Lab Results 10/07/22 10/07/22 10/07/22 Range/Units 13:14 14:43 14:43 WBC 13.4 H (4.8-10.8) X10*3/uL RBC 5.36 (4.60-5.80) X10*6/uL Hgb 15.8 (14.0-18.0) g/dl Hct 46.4 (42.0-52.0) % MCV 86.6 (80.0-98.0) fL MCH 29.5 (27.0-33.0) pg MCHC 34.1 (31.0-36.0) g/dl RDW 12.9 (11.0-16.0) % Plt Count 319 (160-400) X10*3/uL MPV 9.6 (9.4-12.4) fL Immature Gran % (Auto) 0.4 (0.0-0.4) % Neut % (Auto) 77.8 H (45-73) % Lymph % (Auto) 12.3 L (20-40) % Nash % (Auto) 8.9 (2-11) % Eos % (Auto) 0.2 (0-4) % Baso % (Auto) 0.4 (0-2) % Lymph # (Auto) 1.6 (1.2-4.9) X10*3/uL Nash # (Auto) 1.2 (0.1-1.2) X10*3/uL Eos # (Auto) 0.0 (0.0-0.4) X10*3/uL Baso # (Auto) 0.1 (0.0-0.2) X10*3/uL Abs Immat Gran (auto) 0.06 H (0.00-0.03) X10*3/uL Absolute Neuts (auto) 10.4 H (2.0-8.3) x10*3/uL Absolute Nucleated RBC 0.000 (0.0-0.012) X10*3/uL Nucleated RBC % (auto) 0.0 (0.0-0.2) /100WBC VBG pH (7.32-7.43) VBG pCO2 mmHg VBG pO2 mmHg VBG HCO3 (22-26) mmol/L VBG O2 Saturation % VBG Base Excess mmol/L Sodium 132 L (135-145) mmol/L Potassium 4.6 (3.3-5.1) mmol/L Chloride 90 L (96-108) mmol/L Carbon Dioxide 31 H (22-29) mmol/L Anion Gap 16 (12-20) BUN 15 (9-16) mg/dL Creatinine 1.24 (0.5-1.4) mg/dL Estim Creat Clear Calc 81.4 Estimated GFR > 60 POC Glucose 338 H (60-115) mg/dL Random Glucose 366 H* (60-115) mg/dL Calcium 9.8 D (8.4-10.2) mg/dL Magnesium 1.7 (1.6-2.6) mg/dL Total Bilirubin 0.6 (0.0-1.0) mg/dL AST 14 (5-37) U/L ALT 15 (0-40) U/L Alkaline Phosphatase 74 (39-117) U/L Total Protein 7.2 (6.5-8.0) g/dL Albumin 4.4 (3.5-5.0) g/dL Lipase 13 (8-78) U/L Urine Color Urine Appearance Urine pH (5.0-9.0) Ur Specific [place] (1.005-1.025) Urine Protein (Neg-Trace) mg/dL Urine Glucose (UA) (Negative) mg/dL Urine Ketones (Negative) mg/dL Urine Blood (Negative) Urine Nitrite (Negative) Ur Leukocyte Esterase (Negative) Urine RBC (0-2) /HPF Urine WBC (0-5) /HPF Ur Squamous Epith Cells (0-2) /HPF Urine Bacteria (None Seen) Hyaline Casts (0-2) /LPF Urine Opiates Screen (Not Detect) Urine Fentanyl Screen (Not Detect) Ur Barbiturates Screen (Not Detect) Ur Phencyclidine Scrn (Not Detect) Ur Amphetamines Screen (Not Detect) U Benzodiazepines Scrn (Not Detect) Urine Cocaine Screen (Not Detect) U Marijuana (THC) Screen (Not Detect) Acetone, Qual Cancelled 10/07/22 10/07/22 10/07/22 Range/Units 19:06 21:21 21:21 WBC (4.8-10.8) X10*3/uL RBC (4.60-5.80) X10*6/uL Hgb (14.0-18.0) g/dl Hct (42.0-52.0) % MCV (80.0-98.0) fL MCH (27.0-33.0) pg MCHC (31.0-36.0) g/dl RDW (11.0-16.0) % Plt Count (160-400) X10*3/uL MPV (9.4-12.4) fL Immature Gran % (Auto) (0.0-0.4) % Neut % (Auto) (45-73) % Lymph % (Auto) (20-40) % Nash % (Auto) (2-11) % Eos % (Auto) (0-4) % Baso % (Auto) (0-2) % Lymph # (Auto) (1.2-4.9) X10*3/uL Nash # (Auto) (0.1-1.2) X10*3/uL Eos # (Auto) (0.0-0.4) X10*3/uL Baso # (Auto) (0.0-0.2) X10*3/uL Abs Immat Gran (auto) (0.00-0.03) X10*3/uL Absolute Neuts (auto) (2.0-8.3) x10*3/uL Absolute Nucleated RBC (0.0-0.012) X10*3/uL Nucleated RBC % (auto) (0.0-0.2) /100WBC VBG pH (7.32-7.43) VBG pCO2 mmHg VBG pO2 mmHg VBG HCO3 (22-26) mmol/L VBG O2 Saturation % VBG Base Excess mmol/L Sodium (135-145) mmol/L Potassium (3.3-5.1) mmol/L Chloride (96-108) mmol/L Carbon Dioxide (22-29) mmol/L Anion Gap (12-20) BUN (9-16) mg/dL Creatinine (0.5-1.4) mg/dL Estim Creat Clear Calc Estimated GFR POC Glucose 327 H (60-115) mg/dL Random Glucose (60-115) mg/dL Calcium (8.4-10.2) mg/dL Magnesium (1.6-2.6) mg/dL Total Bilirubin (0.0-1.0) mg/dL AST (5-37) U/L ALT (0-40) U/L Alkaline Phosphatase (39-117) U/L Total Protein (6.5-8.0) g/dL Albumin (3.5-5.0) g/dL Lipase (8-78) U/L Urine Color Yellow Urine Appearance Clear Urine pH 6.5 (5.0-9.0) Ur Specific [place] >= 1.030 H (1.005-1.025) Urine Protein 30 (1+) H (Neg-Trace) mg/dL Urine Glucose (UA) >=1000 H (Negative) mg/dL Urine Ketones 40 (Negative) mg/dL Urine Blood Negative (Negative) Urine Nitrite Negative (Negative) Ur Leukocyte Esterase Negative (Negative) Urine RBC 0-2 (0-2) /HPF Urine WBC 0-5 (0-5) /HPF Ur Squamous Epith Cells 0-2 (0-2) /HPF Urine Bacteria None Seen (None Seen) Hyaline Casts 0-2 (0-2) /LPF Urine Opiates Screen Not Detected (Not Detect) Urine Fentanyl Screen Not Detected (Not Detect) Ur Barbiturates Screen Not Detected (Not Detect) Ur Phencyclidine Scrn Not Detected (Not Detect) Ur Amphetamines Screen Not Detected (Not Detect) U Benzodiazepines Scrn Not Detected (Not Detect) Urine Cocaine Screen Not Detected (Not Detect) U Marijuana (THC) Screen POSITIVE H (Not Detect) Acetone, Qual 10/07/22 10/07/22 Range/Units 21:52 21:57 WBC (4.8-10.8) X10*3/uL RBC (4.60-5.80) X10*6/uL Hgb (14.0-18.0) g/dl Hct (42.0-52.0) % MCV (80.0-98.0) fL MCH (27.0-33.0) pg MCHC (31.0-36.0) g/dl RDW (11.0-16.0) % Plt Count (160-400) X10*3/uL MPV (9.4-12.4) fL Immature Gran % (Auto) (0.0-0.4) % Neut % (Auto) (45-73) % Lymph % (Auto) (20-40) % Nash % (Auto) (2-11) % Eos % (Auto) (0-4) % Baso % (Auto) (0-2) % Lymph # (Auto) (1.2-4.9) X10*3/uL Nash # (Auto) (0.1-1.2) X10*3/uL Eos # (Auto) (0.0-0.4) X10*3/uL Baso # (Auto) (0.0-0.2) X10*3/uL Abs Immat Gran (auto) (0.00-0.03) X10*3/uL Absolute Neuts (auto) (2.0-8.3) x10*3/uL Absolute Nucleated RBC (0.0-0.012) X10*3/uL Nucleated RBC % (auto) (0.0-0.2) /100WBC VBG pH 7.51 H (7.32-7.43) VBG pCO2 28 mmHg VBG pO2 166 mmHg VBG HCO3 23 (22-26) mmol/L VBG O2 Saturation 99.0 % VBG Base Excess 1.3 mmol/L Sodium (135-145) mmol/L Potassium (3.3-5.1) mmol/L Chloride (96-108) mmol/L Carbon Dioxide (22-29) mmol/L Anion Gap (12-20) BUN (9-16) mg/dL Creatinine (0.5-1.4) mg/dL Estim Creat Clear Calc Estimated GFR POC Glucose (60-115) mg/dL Random Glucose (60-115) mg/dL Calcium (8.4-10.2) mg/dL Magnesium (1.6-2.6) mg/dL Total Bilirubin (0.0-1.0) mg/dL AST (5-37) U/L ALT (0-40) U/L Alkaline Phosphatase (39-117) U/L Total Protein (6.5-8.0) g/dL Albumin (3.5-5.0) g/dL Lipase (8-78) U/L Urine Color Urine Appearance Urine pH (5.0-9.0) Ur Specific [place] (1.005-1.025) Urine Protein (Neg-Trace) mg/dL Urine Glucose (UA) (Negative) mg/dL Urine Ketones (Negative) mg/dL Urine Blood (Negative) Urine Nitrite (Negative) Ur Leukocyte Esterase (Negative) Urine RBC (0-2) /HPF Urine WBC (0-5) /HPF Ur Squamous Epith Cells (0-2) /HPF Urine Bacteria (None Seen) Hyaline Casts (0-2) /LPF Urine Opiates Screen (Not Detect) Urine Fentanyl Screen (Not Detect) Ur Barbiturates Screen (Not Detect) Ur Phencyclidine Scrn (Not Detect) Ur Amphetamines Screen (Not Detect) U Benzodiazepines Scrn (Not Detect) Urine Cocaine Screen (Not Detect) U Marijuana (THC) Screen (Not Detect) Acetone, Qual Cancelled <Winston Infante - Last Filed: 10/07/22 13:15> Lab Results 10/07/22 10/07/22 10/07/22 Range/Units 13:14 14:43 14:43 WBC 13.4 H (4.8-10.8) X10*3/uL RBC 5.36 (4.60-5.80) X10*6/uL Hgb 15.8 (14.0-18.0) g/dl Hct 46.4 (42.0-52.0) % MCV 86.6 (80.0-98.0) fL MCH 29.5 (27.0-33.0) pg MCHC 34.1 (31.0-36.0) g/dl RDW 12.9 (11.0-16.0) % Plt Count 319 (160-400) X10*3/uL MPV 9.6 (9.4-12.4) fL Immature Gran % (Auto) 0.4 (0.0-0.4) % Neut % (Auto) 77.8 H (45-73) % Lymph % (Auto) 12.3 L (20-40) % Nash % (Auto) 8.9 (2-11) % Eos % (Auto) 0.2 (0-4) % Baso % (Auto) 0.4 (0-2) % Lymph # (Auto) 1.6 (1.2-4.9) X10*3/uL Nash # (Auto) 1.2 (0.1-1.2) X10*3/uL Eos # (Auto) 0.0 (0.0-0.4) X10*3/uL Baso # (Auto) 0.1 (0.0-0.2) X10*3/uL Abs Immat Gran (auto) 0.06 H (0.00-0.03) X10*3/uL Absolute Neuts (auto) 10.4 H (2.0-8.3) x10*3/uL Absolute Nucleated RBC 0.000 (0.0-0.012) X10*3/uL Nucleated RBC % (auto) 0.0 (0.0-0.2) /100WBC VBG pH (7.32-7.43) VBG pCO2 mmHg VBG pO2 mmHg VBG HCO3 (22-26) mmol/L VBG O2 Saturation % VBG Base Excess mmol/L Sodium 132 L (135-145) mmol/L Potassium 4.6 (3.3-5.1) mmol/L Chloride 90 L (96-108) mmol/L Carbon Dioxide 31 H (22-29) mmol/L Anion Gap 16 (12-20) BUN 15 (9-16) mg/dL Creatinine 1.24 (0.5-1.4) mg/dL Estim Creat Clear Calc 81.4 Estimated GFR > 60 POC Glucose 338 H (60-115) mg/dL Random Glucose 366 H* (60-115) mg/dL Calcium 9.8 D (8.4-10.2) mg/dL Magnesium 1.7 (1.6-2.6) mg/dL Total Bilirubin 0.6 (0.0-1.0) mg/dL AST 14 (5-37) U/L ALT 15 (0-40) U/L Alkaline Phosphatase 74 (39-117) U/L Total Protein 7.2 (6.5-8.0) g/dL Albumin 4.4 (3.5-5.0) g/dL Lipase 13 (8-78) U/L Urine Color Urine Appearance Urine pH (5.0-9.0) Ur Specific [place] (1.005-1.025) Urine Protein (Neg-Trace) mg/dL Urine Glucose (UA) (Negative) mg/dL Urine Ketones (Negative) mg/dL Urine Blood (Negative) Urine Nitrite (Negative) Ur Leukocyte Esterase (Negative) Urine RBC (0-2) /HPF Urine WBC (0-5) /HPF Ur Squamous Epith Cells (0-2) /HPF Urine Bacteria (None Seen) Hyaline Casts (0-2) /LPF Urine Opiates Screen (Not Detect) Urine Fentanyl Screen (Not Detect) Ur Barbiturates Screen (Not Detect) Ur Phencyclidine Scrn (Not Detect) Ur Amphetamines Screen (Not Detect) U Benzodiazepines Scrn (Not Detect) Urine Cocaine Screen (Not Detect) U Marijuana (THC) Screen (Not Detect) Acetone, Qual Cancelled 10/07/22 10/07/22 10/07/22 Range/Units 19:06 21:21 21:21 WBC (4.8-10.8) X10*3/uL RBC (4.60-5.80) X10*6/uL Hgb (14.0-18.0) g/dl Hct (42.0-52.0) % MCV (80.0-98.0) fL MCH (27.0-33.0) pg MCHC (31.0-36.0) g/dl RDW (11.0-16.0) % Plt Count (160-400) X10*3/uL MPV (9.4-12.4) fL Immature Gran % (Auto) (0.0-0.4) % Neut % (Auto) (45-73) % Lymph % (Auto) (20-40) % Nash % (Auto) (2-11) % Eos % (Auto) (0-4) % Baso % (Auto) (0-2) % Lymph # (Auto) (1.2-4.9) X10*3/uL Nash # (Auto) (0.1-1.2) X10*3/uL Eos # (Auto) (0.0-0.4) X10*3/uL Baso # (Auto) (0.0-0.2) X10*3/uL Abs Immat Gran (auto) (0.00-0.03) X10*3/uL Absolute Neuts (auto) (2.0-8.3) x10*3/uL Absolute Nucleated RBC (0.0-0.012) X10*3/uL Nucleated RBC % (auto) (0.0-0.2) /100WBC VBG pH (7.32-7.43) VBG pCO2 mmHg VBG pO2 mmHg VBG HCO3 (22-26) mmol/L VBG O2 Saturation % VBG Base Excess mmol/L Sodium (135-145) mmol/L Potassium (3.3-5.1) mmol/L Chloride (96-108) mmol/L Carbon Dioxide (22-29) mmol/L Anion Gap (12-20) BUN (9-16) mg/dL Creatinine (0.5-1.4) mg/dL Estim Creat Clear Calc Estimated GFR POC Glucose 327 H (60-115) mg/dL Random Glucose (60-115) mg/dL Calcium (8.4-10.2) mg/dL Magnesium (1.6-2.6) mg/dL Total Bilirubin (0.0-1.0) mg/dL AST (5-37) U/L ALT (0-40) U/L Alkaline Phosphatase (39-117) U/L Total Protein (6.5-8.0) g/dL Albumin (3.5-5.0) g/dL Lipase (8-78) U/L Urine Color Yellow Urine Appearance Clear Urine pH 6.5 (5.0-9.0) Ur Specific [place] >= 1.030 H (1.005-1.025) Urine Protein 30 (1+) H (Neg-Trace) mg/dL Urine Glucose (UA) >=1000 H (Negative) mg/dL Urine Ketones 40 (Negative) mg/dL Urine Blood Negative (Negative) Urine Nitrite Negative (Negative) Ur Leukocyte Esterase Negative (Negative) Urine RBC 0-2 (0-2) /HPF Urine WBC 0-5 (0-5) /HPF Ur Squamous Epith Cells 0-2 (0-2) /HPF Urine Bacteria None Seen (None Seen) Hyaline Casts 0-2 (0-2) /LPF Urine Opiates Screen Not Detected (Not Detect) Urine Fentanyl Screen Not Detected (Not Detect) Ur Barbiturates Screen Not Detected (Not Detect) Ur Phencyclidine Scrn Not Detected (Not Detect) Ur Amphetamines Screen Not Detected (Not Detect) U Benzodiazepines Scrn Not Detected (Not Detect) Urine Cocaine Screen Not Detected (Not Detect) U Marijuana (THC) Screen POSITIVE H (Not Detect) Acetone, Qual 10/07/22 10/07/22 Range/Units 21:52 21:57 WBC (4.8-10.8) X10*3/uL RBC (4.60-5.80) X10*6/uL Hgb (14.0-18.0) g/dl Hct (42.0-52.0) % MCV (80.0-98.0) fL MCH (27.0-33.0) pg MCHC (31.0-36.0) g/dl RDW (11.0-16.0) % Plt Count (160-400) X10*3/uL MPV (9.4-12.4) fL Immature Gran % (Auto) (0.0-0.4) % Neut % (Auto) (45-73) % Lymph % (Auto) (20-40) % Nash % (Auto) (2-11) % Eos % (Auto) (0-4) % Baso % (Auto) (0-2) % Lymph # (Auto) (1.2-4.9) X10*3/uL Nash # (Auto) (0.1-1.2) X10*3/uL Eos # (Auto) (0.0-0.4) X10*3/uL Baso # (Auto) (0.0-0.2) X10*3/uL Abs Immat Gran (auto) (0.00-0.03) X10*3/uL Absolute Neuts (auto) (2.0-8.3) x10*3/uL Absolute Nucleated RBC (0.0-0.012) X10*3/uL Nucleated RBC % (auto) (0.0-0.2) /100WBC VBG pH 7.51 H (7.32-7.43) VBG pCO2 28 mmHg VBG pO2 166 mmHg VBG HCO3 23 (22-26) mmol/L VBG O2 Saturation 99.0 % VBG Base Excess 1.3 mmol/L Sodium (135-145) mmol/L Potassium (3.3-5.1) mmol/L Chloride (96-108) mmol/L Carbon Dioxide (22-29) mmol/L Anion Gap (12-20) BUN (9-16) mg/dL Creatinine (0.5-1.4) mg/dL Estim Creat Clear Calc Estimated GFR POC Glucose (60-115) mg/dL Random Glucose (60-115) mg/dL Calcium (8.4-10.2) mg/dL Magnesium (1.6-2.6) mg/dL Total Bilirubin (0.0-1.0) mg/dL AST (5-37) U/L ALT (0-40) U/L Alkaline Phosphatase (39-117) U/L Total Protein (6.5-8.0) g/dL Albumin (3.5-5.0) g/dL Lipase (8-78) U/L Urine Color Urine Appearance Urine pH (5.0-9.0) Ur Specific [place] (1.005-1.025) Urine Protein (Neg-Trace) mg/dL Urine Glucose (UA) (Negative) mg/dL Urine Ketones (Negative) mg/dL Urine Blood (Negative) Urine Nitrite (Negative) Ur Leukocyte Esterase (Negative) Urine RBC (0-2) /HPF Urine WBC (0-5) /HPF Ur Squamous Epith Cells (0-2) /HPF Urine Bacteria (None Seen) Hyaline Casts (0-2) /LPF Urine Opiates Screen (Not Detect) Urine Fentanyl Screen (Not Detect) Ur Barbiturates Screen (Not Detect) Ur Phencyclidine Scrn (Not Detect) Ur Amphetamines Screen (Not Detect) U Benzodiazepines Scrn (Not Detect) Urine Cocaine Screen (Not Detect) U Marijuana (THC) Screen (Not Detect) Acetone, Qual Cancelled <Cecy Ward CRIMINAL ATTORNEY - Last Filed: 10/08/22 01:47> External Record Review External record reviewed: Inpatient record, Outpatient record and Prior outpatient labs <Cecy Ward NP - Last Filed: 10/08/22 01:47> Prescription Management I considered prescription management with: Other (Antiemetic, IV fluids) <Cecy Ward NP - Last Filed: 10/08/22 01:47> Chronic Conditions Patient?s care impacted by: Diabetes <Cecy Ward NP - Last Filed: 10/08/22 01:47> Discharge Plan Discharge Clinical Impression: Hypoglycemia associated with type 2 diabetes mellitus, Cannabis hyperemesis syndrome concurrent with and due to cannabis abuse, Dehydration, Vomiting <Winston Infante - Last Filed: 10/07/22 13:15> Patient Disposition: Admitted As Inpatient <Winston Infante - Last Filed: 10/07/22 13:15>
[2022-10-07 13:18] LABS: Glucose, Whole Blood 338 mg/dL (60-115)
[2022-10-07 14:52] LABS: MANUAL DIFF FLAG NO
[2022-10-07 14:53] LABS: Basophils Absolute Auto 0.1 X10*3/uL (0.0-0.2); Basophils Percent Auto 0.4 % (0-2); Eosinophils Percent Auto 0.2 % (0-4); Hematocrit 46.4 % (42.0-52.0); Hemoglobin 15.8 g/dl (14.0-18.0); Imm Gran Abs Auto 0.06 X10*3/uL (0.00-0.03); Imm Gran Pct Auto 0.4 % (0.0-0.4); Lymphocytes Absolute Auto 1.6 X10*3/uL (1.2-4.9); Lymphocytes Percent Auto 12.3 % (20-40); Mean Corpuscular HGB Conc 34.1 g/dl (31.0-36.0); Mean Corpuscular Hemoglobin 29.5 pg (27.0-33.0); Mean Corpuscular Volume 86.6 fL (80.0-98.0); Mean Platelet Volume 9.6 fL (9.4-12.4); Monocytes Absolute Auto 1.2 X10*3/uL (0.1-1.2); Monocytes Percent Auto 8.9 % (2-11); Neutrophils Absolute Auto 10.4 x10*3/uL (2.0-8.3); Neutrophils Percent Auto 77.8 % (45-73); Platelet Count 319 X10*3/uL (160-400); Red Blood Count 5.36 X10*6/uL (4.60-5.80); Red Cell Distribution Width 12.9 % (11.0-16.0); White Blood Count 13.4 X10*3/uL (4.8-10.8)
[2022-10-07 15:46] LABS: Alanine Aminotransferase 15 U/L (0-40); Albumin Level 4.4 g/dL (3.5-5.0); Alkaline Phosphatase 74 U/L (39-117); Anion Gap 16 (12-20); Aspartate Amino Transferase 14 U/L (5-37); Bilirubin Total 0.6 mg/dL (0.0-1.0); Blood Urea Nitrogen 15 mg/dL (9-16); Calcium 9.8 mg/dL (8.4-10.2); Carbon Dioxide 31 mmol/L (22-29); Chloride 90 mmol/L (96-108); Creatinine Clr Calc Pharmacy 81.4; Estimated Glomerular Filt Rate > 60; Glucose Random 366 mg/dL (60-115); Lipase 13 U/L (8-78); Magnesium 1.7 mg/dL (1.6-2.6); Potassium 4.6 mmol/L (3.3-5.1); Sodium 132 mmol/L (135-145); Total Protein 7.2 g/dL (6.5-8.0)
[2022-10-07 19:08] VITALS: BP 139/88; PULSE 86; RESP 16; TEMP 37.2; O2SAT 99
[2022-10-07 19:10] LABS: Glucose, Whole Blood 327 mg/dL (60-115)
[2022-10-07] MEDS: 0.9 % Sodium Chloride 1,000 ML 999 ML IVCONT ×2 (19:33→20:02)
[2022-10-07] MEDS: Famotidine/PF 20 MG/2 ML VIAL IVPUSH (20:02)
[2022-10-07] MEDS: diphenhydrAMINE HCL 50 MG/ML VIAL 12.5 MG IVPUSH (20:02)
[2022-10-07] MEDS: Metoclopramide HCl 10 MG/2 ML VIAL IVPUSH (20:02)
[2022-10-07 21:26] VITALS: BP 146/88; PULSE 88; RESP 14; TEMP 37.2; O2SAT 96
[2022-10-07 21:28] LABS: Appearance Urine Clear; Color Urine Yellow; Glucose Urine UA >=1000 mg/dL (Negative); Leukocyte Esterase Urine Negative (Negative); Nitrite Urine Negative (Negative); PH 6.5 (5.0-9.0); Specific Gravity - Urine >= 1.030 (1.005-1.025); UMIC TRIGGER UACC YES; Urine Blood Negative (Negative); Urine Ketones 40 mg/dL (Negative); Urine Protein 30 (1+) mg/dL (Neg-Trace)
[2022-10-07 21:30] LABS: Bacteria Urine None Seen (None Seen); Hyaline Casts Urine 0-2 /LPF (0-2); RBC Urine 0-2 /HPF (0-2); Squamous Epithelial Cell Urine 0-2 /HPF (0-2); WBC Urine 0-5 /HPF (0-5)
[2022-10-07] MEDS: Ketorolac Tromethamine 30 MG/ML VIAL IVPUSH (21:33)
[2022-10-07 21:45] LABS: Amphetamine Screen Urine Not Detected (Not Detect); Barbiturates, Urine Not Detected (Not Detect); Benzodiazepines Screen Urine Not Detected (Not Detect); Cannabinoid Screen Urine POSITIVE (Not Detect); Cocaine Screen Urine Not Detected (Not Detect); Fentanyl, urine Not Detected (Not Detect); Opiate Screen Urine Not Detected (Not Detect); Phencyclidine Screen Urine Not Detected (Not Detect)
[2022-10-07 22:01] LABS: Venous Blood Gas Refer to POC result
[2022-10-07 22:04] LABS: VBG Base Excess 1.3 mmol/L; VBG HCO3 23 mmol/L (22-26); VBG pCO2 28 mmHg; VBG pH 7.51 (7.32-7.43); VBG pO2 166 mmHg
--- NOTE | 2022-10-07 22:06 | P.HPHOSP_ITS ---
History of Present Illness Date of Service: 10/07/22 Chief Complaint: Nausea /vomiting This is a 27-year-old male with pertinent history of cannabis use disorder, insulin-dependent diabetes mellitus, generalized anxiety disorder who presents to the emergency department for evaluation of generalized pain / nausea/v omiting. Patient states his symptoms started 2 days prior to presentation. He has had multiple episodes of nonbloody emesis over the last 2 days. Unable to tolerate p.o. intake. It is associated with generalized abdominal discomfort, intermittent and nonradiating. Patient admits that he is not compliant with insulin and usually misses his doses. Also smokes marijuana every day for anxiety. Has had poor p.o. intake over the last 2 days due to nausea. He denies fever, chills, chest discomfort, palpitations, shortness of breath, changes in urinary habits In the emergency department, glucose found to be in the 300s. Review of Systems Constitutional: Constitutional: Reports lethargy and Reports malaise Cardiovascular: Cardiovascular: Reports no additional cardiovascular complaints Respiratory: Respiratory: Reports no additional respiratory complaints Gastrointestinal: Gastrointestinal: Reports abdominal pain, Reports nausea and Reports vomiting Genitourinary: Genitourinary: Reports no additional male genitourinary complaints [facility] Medical History Cyclical vomiting Diabetes Diabetic gastroparesis Diabetic keto-acidosis Esophageal ulcer Gastroparesis Leukocytosis Noncompliance with medication regimen Persistent hyperactive cannabis intoxication delirium Family History Other No family history of coronary artery disease Surgical History No pertinent past surgical history Social History Household Members: None Housing: Apartment Do you presently have visiting nurse or other home services: No Alcohol intake: never Patient Tobacco Use Status: Never used Tobacco Substance Use Type: Marijuana Advance Directives: Yes Advance Directives on File: Yes Advance Directives Date on File: 01/22/21 service: No Current occupational status: employed Meds Allergies Allergy/AdvReac Type Severity Reaction Status Date / Time passion fruit [PASSION FRUIT] Allergy Unknown UNK Verified 08/03/22 16:35 Active Medications: Current Medications Capsaicin (Capsaicin 0.025% Cream 60 Gm Tube) 1 appl TOPICAL BID [place]; Protocol Pharmacy Consult (Consult Rx Perform Med Rec) 1 each MISCELLANE ONCE PRN PRN Reason: Consult order Home Medications Medication Instructions Recorded Confirmed Last Taken Type sertraline 25 mg tablet 25 mg PO DAILY 12/28/21 06/17/22 06/16/22 History pantoprazole 40 mg tablet,delayed 1 tab PO DAILY 03/15/22 06/17/22 06/16/22 His tory release insulin lispro protamine-lispro 60 unit subcut BID 04/30/22 06/17/22 06/16/22 H istory 100 unit/mL (75-25) subcutaneous pen Physical Exam Vital Signs and Narrative: Vital Signs: Last Vital Signs Temp 99.0 F 10/07/22 21:26 Pulse 88 10/07/22 21:26 Resp 14 10/07/22 21:26 BP 146/88 H 10/07/22 21:26 Pulse Ox 96 10/07/22 21:26 O2 Del Method 10/07/22 21:26 BMI result Body Mass Index 25.8 Middle-aged male lying in bed in no distress Neck supple, no JVD Regular rate and rhythm, S1-S2 heard Regular breath sounds bilaterally, no wheezing or crackles appreciated Abdomen with generalized tenderness, no guarding, no rigidity Patient is awake, alert and oriented to self, place, time and person ; no focal motor deficit Psych: Normal mood No pedal edema Results Labs 10/07/22 14:43 10/07/22 14:43 Labs: Laboratory Results - last 24 hr 10/07/22 10/07/22 10/07/22 13:14 14:43 14:43 MCV 86.6 MCH 29.5 MCHC 34.1 RDW 12.9 Plt Count 319 MPV 9.6 Immature Gran % (Auto) 0.4 Neut % (Auto) 77.8 H Lymph % (Auto) 12.3 L [place] % (Auto) 8.9 Eos % (Auto) 0.2 Baso % (Auto) 0.4 Lymph # (Auto) 1.6 [place] # (Auto) 1.2 Eos # (Auto) 0.0 Baso # (Auto) 0.1 Abs Immat Gran (auto) 0.06 H Absolute Neuts (auto) 10.4 H Absolute Nucleated RBC 0.000 Nucleated RBC % (auto) 0.0 VBG pH VBG pCO2 VBG pO2 VBG HCO3 VBG O2 Saturation VBG Base Excess Anion Gap 16 Estim Creat Clear Calc 81.4 Estimated GFR > 60 POC Glucose 338 H Random Glucose 366 H* Calcium 9.8 D Magnesium 1.7 Total Bilirubin 0.6 AST 14 ALT 15 Alkaline Phosphatase 74 Total Protein 7.2 Albumin 4.4 Lipase 13 Urine Color Urine Appearance Urine pH Ur Specific [place] Urine Protein Urine Glucose (UA) Urine Ketones Urine Blood Urine Nitrite Ur Leukocyte Esterase Urine RBC Urine WBC Ur Squamous Epith Cells Urine Bacteria Hyaline Casts Urine Opiates Screen Urine Fentanyl Screen Ur Barbiturates Screen Ur Phencyclidine Scrn Ur Amphetamines Screen U Benzodiazepines Scrn Urine Cocaine Screen U Marijuana (THC) Screen Acetone, Qual Cancelled 10/07/22 10/07/22 10/07/22 19:06 21:21 21:21 MCV MCH MCHC RDW Plt Count MPV Immature Gran % (Auto) Neut % (Auto) Lymph % (Auto) [place] % (Auto) Eos % (Auto) Baso % (Auto) Lymph # (Auto) [place] # (Auto) Eos # (Auto) Baso # (Auto) Abs Immat Gran (auto) Absolute Neuts (auto) Absolute Nucleated RBC Nucleated RBC % (auto) VBG pH VBG pCO2 VBG pO2 VBG HCO3 VBG O2 Saturation VBG Base Excess Anion Gap Estim Creat Clear Calc Estimated GFR POC Glucose 327 H Random Glucose Calcium Magnesium Total Bilirubin AST ALT Alkaline Phosphatase Total Protein Albumin Lipase Urine Color Yellow Urine Appearance Clear Urine pH 6.5 Ur Specific [place] >= 1.030 H Urine Protein 30 (1+) H Urine Glucose (UA) >=1000 H Urine Ketones 40 Urine Blood Negative Urine Nitrite Negative Ur Leukocyte Esterase Negative Urine RBC 0-2 Urine WBC 0-5 Ur Squamous Epith Cells 0-2 Urine Bacteria None Seen Hyaline Casts 0-2 Urine Opiates Screen Not Detected Urine Fentanyl Screen Not Detected Ur Barbiturates Screen Not Detected Ur Phencyclidine Scrn Not Detected Ur Amphetamines Screen Not Detected U Benzodiazepines Scrn Not Detected Urine Cocaine Screen Not Detected U Marijuana (THC) Screen POSITIVE H Acetone, Qual 10/07/22 10/07/22 21:52 21:57 MCV MCH MCHC RDW Plt Count MPV Immature Gran % (Auto) Neut % (Auto) Lymph % (Auto) [place] % (Auto) Eos % (Auto) Baso % (Auto) Lymph # (Auto) [place] # (Auto) Eos # (Auto) Baso # (Auto) Abs Immat Gran (auto) Absolute Neuts (auto) Absolute Nucleated RBC Nucleated RBC % (auto) VBG pH 7.51 H VBG pCO2 28 VBG pO2 166 VBG HCO3 23 VBG O2 Saturation 99.0 VBG Base Excess 1.3 Anion Gap Estim Creat Clear Calc Estimated GFR POC Glucose Random Glucose Calcium Magnesium Total Bilirubin AST ALT Alkaline Phosphatase Total Protein Albumin Lipase Urine Color Urine Appearance Urine pH Ur Specific [place] Urine Protein Urine Glucose (UA) Urine Ketones Urine Blood Urine Nitrite Ur Leukocyte Esterase Urine RBC Urine WBC Ur Squamous Epith Cells Urine Bacteria Hyaline Casts Urine Opiates Screen Urine Fentanyl Screen Ur Barbiturates Screen Ur Phencyclidine Scrn Ur Amphetamines Screen U Benzodiazepines Scrn Urine Cocaine Screen U Marijuana (THC) Screen Acetone, Qual Cancelled Assessment and Plan (1) Vomiting: Status: Acute Plan This is a 27-year-old male with pertinent history of cannabis use disorder, insulin-dependent diabetes mellitus, generalized anxiety disorder who presents to the emergency department for evaluation of generalized pain / nausea/vomiting. #. Intractable nausea/vomiting with generalized abdominal discomfort: Likely due to cannabis hyperemesis syndrome. Counseled against usage. Administering capsaicin cream. Resuscitated with IV crystalloids in the ER. Consider imaging +/- GI consult if symptoms continue. #. Uncontrolled insulin-dependent diabetes mellitus with hyperglycemia, due to noncompliance: Initiating basal plus regimen. A1c pending #. Generalized anxiety disorder: Patient states he smokes marijuana as his anxiety is uncontrolled. Consulting psych to optimize anxiolytics #. GERD on Protonix #. Reactive leukocytosis Med rec pending DVT prophylaxis: Lovenox 40mg daily Full code Diabetic diet Time Spent With Patient Time: Total time managing care of this patient today ____ minutes. Quality Stroke Does the patient have a stroke diagnosis?: No VTE Prior VTE?: No VTE Risk Level:: Medical - moderate - high VTE Device Contraindication: Treatment Not Indicated VTE Drug Contraindication: N/A - Med Ordered
--- NOTE | 2022-10-07 22:19 | PC.NURSE ---
po challenge performed on pt. pt tolerated po liquids and food. hospitalist dr smart made aware. no new orders at this time
--- NOTE | 2022-10-07 22:29 | PHA.MEDREC ---
MED REC COMPLETE, NO ISSUES Pharmacy Consult ? Medication Reconciliation Pharmacy has completed the medication reconciliation.
[2022-10-07 23:08] LABS: COVID-19 Test Negative (Negative); IDNOW Serial# 16C4AD1C
[2022-10-07] MEDS: Insulin Glargine,Hum.rec.anlog 100 UNIT/ML 10 ML VIAL 30 UNIT SUBCUT (23:12)
[2022-10-07] MEDS: Insulin Regular, Human 100 UNIT/ML 3 ML VIAL IVPUSH (23:13)
[2022-10-07] MEDS: LORazepam 1 MG TABLET PO (23:13)
[2022-10-07] MEDS: Enoxaparin Sodium 40 MG/0.4 ML SYRINGE SUBCUT (23:13)
--- NOTE | 2022-10-07 23:21 | PC.NURSE ---
pt medicated according to mar. pt provided with sandwich and something to drink at this time pt notes pain down to 5/10 at this time
[2022-10-08 00:01] LABS: Glucose, Whole Blood 219 mg/dL (60-115)
[2022-10-08 01:03] VITALS: BP 101/46; PULSE 94; RESP 19; TEMP 36.6; O2SAT 96
[2022-10-08] MEDS: 0.9 % Sodium Chloride Flush 3 ML SYRINGE IVFLUSH ×4 (01:24→21:26)
[2022-10-08] MEDS: Insulin Lispro 100 UNIT/ML 3 ML VIAL SUBCUT ×4 (01:24→21:25)
--- NOTE | 2022-10-08 01:27 | PC.NURSE ---
pt medicated according to mar. pt positioned on l side resting at this time. pt provided with eye mask to assist in sleeping
[2022-10-08 06:10] LABS: MANUAL DIFF FLAG NO
[2022-10-08 06:22] LABS: Basophils Absolute Auto 0.1 X10*3/uL (0.0-0.2); Basophils Percent Auto 0.8 % (0-2); Eosinophils Absolute Auto 0.1 X10*3/uL (0.0-0.4); Eosinophils Percent Auto 0.9 % (0-4); Hematocrit 41.8 % (42.0-52.0); Hemoglobin 14.1 g/dl (14.0-18.0); Imm Gran Abs Auto 0.02 X10*3/uL (0.00-0.03); Imm Gran Pct Auto 0.2 % (0.0-0.4); Lymphocytes Absolute Auto 3.1 X10*3/uL (1.2-4.9); Mean Corpuscular HGB Conc 33.7 g/dl (31.0-36.0); Mean Platelet Volume 9.9 fL (9.4-12.4); Monocytes Absolute Auto 1.3 X10*3/uL (0.1-1.2); Monocytes Percent Auto 14.1 % (2-11); Neutrophils Absolute Auto 4.5 x10*3/uL (2.0-8.3); Platelet Count 321 X10*3/uL (160-400); Red Blood Count 4.86 X10*6/uL (4.60-5.80); Red Cell Distribution Width 12.7 % (11.0-16.0); White Blood Count 9.1 X10*3/uL (4.8-10.8)
[2022-10-08 06:55] LABS: Anion Gap 13 (12-20); Blood Urea Nitrogen 19 mg/dL (9-16); Calcium 8.5 mg/dL (8.4-10.2); Carbon Dioxide 28 mmol/L (22-29); Chloride 103 mmol/L (96-108); Creatinine Clr Calc Pharmacy 120.2; Estimated Glomerular Filt Rate > 60; Glucose Random 50 mg/dL (60-115); Potassium 3.8 mmol/L (3.3-5.1); Sodium 140 mmol/L (135-145)
--- NOTE | 2022-10-08 07:02 | PC.NURSE ---
critical glucose called from lab. glucose [address] smart. pt provided with orange juice with sugar and crackers. dr smart made aware. on coming nurse made aware of glucose and intervention of juice and crackers.
[2022-10-08 07:08] LABS: Glucose, Whole Blood 62 mg/dL (60-115)
[2022-10-08 07:11] VITALS: BP 141/101; PULSE 89; RESP 25; TEMP 36.8
--- NOTE | 2022-10-08 07:40 | HO.PM.IMPN ---
Subjective Subjective Date of Service: 10/08/22 Interval History: Being followed for epigastric pain associated with nausea and vomiting, patient is complaining of persistent epigastric pain requesting for analgesics decreased by mouth intake, no episode of nausea vomiting this morning, denies fever chills, history of multiple ER visits due to abdominal pain likely due to cannabis induced hyperemesis. denies URI symptoms, denies urinary symptoms, no chest pain, no palpitations, no acute events overnight. Review of Systems Review of Systems: Yes all other systems are reviewed and are negative Physical Exam Vital Signs: Vital Signs: Last Vital Signs Temp 98.2 F 10/08/22 07:11 Pulse 89 10/08/22 07:11 Resp 25 H 10/08/22 07:11 BP 141/101 H 10/08/22 07:11 Pulse Ox 96 10/08/22 01:03 O2 Del Method 10/08/22 07:11 BMI result Body Mass Index 25.8 Const: Other: General Awake alert mild distress due to pain. Neck no JVD. CVS regular rate rhythm, Respiratory lungs clear to auscultation, no respiratory distress, no wheeze, no rhonchi. Gastrointestinal epigastric tenderness to palpation, bowel sounds audible, no guarding , no rigidity. Extremities no edema. Neuro nonfocal . Skin no rash psych appropriate affect Objective Data Active Medications Acetaminophen (Acetaminophen 325 Mg Tablet) 650 mg PO Q6H PRN PRN Reason: Pain, Mild (Pain Scale 1-3) Capsaicin (Capsaicin 0.025% Cream 60 Gm Tube) 1 appl TOPICAL BID [facility]; Protocol Last Admin: 10/07/22 23:17 Dose: Not Given Documented By: DANIELLE Non-Admin Reason: Med Not Available Dextrose (Dextrose 50 % 25 Gm/50 Ml Syringe) 25 gm IVPUSH Q15M PRN; Protocol PRN Reason: per Hypoglycemia Standing Ord. Enoxaparin Sodium (Enoxaparin Sodium 40 Mg/0.4 Ml Syringe) 40 mg SUBCUT Q24H [facility] Last Admin: 10/07/22 23:13 Dose: 40 mg Documented By: DANIELLE Glucose (Glucose Gel 15 Gm Gel..Gram.) 15 gm PO Q15M PRN; Protocol PRN Reason: per Hypoglycemia Standing Ord. Insulin Glargine (Insulin Glargine,Hum.Rec.Anlog 100 Unit/Ml 10 Ml Vial) 30 unit SUBCUT BEDTIME [facility] Last Admin: 10/07/22 23:12 Dose: 30 unit Documented By: DANIELLE Insulin Human Lispro (Insulin Lispro 100 Unit/Ml 3 Ml Vial) 0 unit SUBCUT QIDACHS [facility]; Protocol Last Admin: 10/08/22 07:26 Dose: Not Given Documented By: PHIL Non-Admin Reason: No Insulin Coverage Melatonin (Melatonin 3 Mg Tablet) 6 mg PO BEDTIME PRN PRN Reason: Insomnia Ondansetron HCl (Ondansetron Hcl 4 Mg/2 Ml Vial) 4 mg IVPUSH Q8H PRN PRN Reason: Nausea and Vomiting Pharmacy Consult (Consult Rx Perform Med Rec) 1 each MISCELLANE ONCE PRN PRN Reason: Consult order Sodium Chloride (0.9 % Sodium Chloride Flush 3 Ml Syringe) 3 ml IVFLUSH QSHIFT [facility] Last Admin: 10/08/22 07:33 Dose: 3 ml Documented By: PHIL Labs 10/08/22 05:52 10/08/22 05:52 Labs: Laboratory Results - last 24 hr 10/07/22 10/07/22 10/07/22 13:14 14:43 14:43 MCV 86.6 MCH 29.5 MCHC 34.1 RDW 12.9 Plt Count 319 MPV 9.6 Immature Gran % (Auto) 0.4 Neut % (Auto) 77.8 H Lymph % (Auto) 12.3 L [place] % (Auto) 8.9 Eos % (Auto) 0.2 Baso % (Auto) 0.4 Lymph # (Auto) 1.6 [place] # (Auto) 1.2 Eos # (Auto) 0.0 Baso # (Auto) 0.1 Abs Immat Gran (auto) 0.06 H Absolute Neuts (auto) 10.4 H Absolute Nucleated RBC 0.000 Nucleated RBC % (auto) 0.0 VBG pH VBG pCO2 VBG pO2 VBG HCO3 VBG O2 Saturation VBG Base Excess Anion Gap 16 Estim Creat Clear Calc 81.4 Estimated GFR > 60 POC Glucose 338 H Random Glucose 366 H* Calcium 9.8 D Magnesium 1.7 Total Bilirubin 0.6 AST 14 ALT 15 Alkaline Phosphatase 74 Total Protein 7.2 Albumin 4.4 Lipase 13 Urine Color Urine Appearance Urine pH Ur Specific [place] Urine Protein Urine Glucose (UA) Urine Ketones Urine Blood Urine Nitrite Ur Leukocyte Esterase Urine RBC Urine WBC Ur Squamous Epith Cells Urine Bacteria Hyaline Casts Urine Opiates Screen Urine Fentanyl Screen Ur Barbiturates Screen Ur Phencyclidine Scrn Ur Amphetamines Screen U Benzodiazepines Scrn Urine Cocaine Screen U Marijuana (THC) Screen Acetone, Qual Cancelled COVID-19 ([facility]) COVID-19 [place] [employer] Com 10/07/22 10/07/22 10/07/22 19:06 21:21 21:21 MCV MCH MCHC RDW Plt Count MPV Immature Gran % (Auto) Neut % (Auto) Lymph % (Auto) [place] % (Auto) Eos % (Auto) Baso % (Auto) Lymph # (Auto) [place] # (Auto) Eos # (Auto) Baso # (Auto) Abs Immat Gran (auto) Absolute Neuts (auto) Absolute Nucleated RBC Nucleated RBC % (auto) VBG pH VBG pCO2 VBG pO2 VBG HCO3 VBG O2 Saturation VBG Base Excess Anion Gap Estim Creat Clear Calc Estimated GFR POC Glucose 327 H Random Glucose Calcium Magnesium Total Bilirubin AST ALT Alkaline Phosphatase Total Protein Albumin Lipase Urine Color Yellow Urine Appearance Clear Urine pH 6.5 Ur Specific [place] >= 1.030 H Urine Protein 30 (1+) H Urine Glucose (UA) >=1000 H Urine Ketones 40 Urine Blood Negative Urine Nitrite Negative Ur Leukocyte Esterase Negative Urine RBC 0-2 Urine WBC 0-5 Ur Squamous Epith Cells 0-2 Urine Bacteria None Seen Hyaline Casts 0-2 Urine Opiates Screen Not Detected Urine Fentanyl Screen Not Detected Ur Barbiturates Screen Not Detected Ur Phencyclidine Scrn Not Detected Ur Amphetamines Screen Not Detected U Benzodiazepines Scrn Not Detected Urine Cocaine Screen Not Detected U Marijuana (THC) Screen POSITIVE H Acetone, Qual COVID-19 ([facility]) COVID-19 Clin Com 10/07/22 10/07/22 10/07/22 21:52 21:57 22:46 MCV MCH MCHC RDW Plt Count MPV Immature Gran % (Auto) Neut % (Auto) Lymph % (Auto) [place] % (Auto) Eos % (Auto) Baso % (Auto) Lymph # (Auto) [place] # (Auto) Eos # (Auto) Baso # (Auto) Abs Immat Gran (auto) Absolute Neuts (auto) Absolute Nucleated RBC Nucleated RBC % (auto) VBG pH 7.51 H VBG pCO2 28 VBG pO2 166 VBG HCO3 23 VBG O2 Saturation 99.0 VBG Base Excess 1.3 Anion Gap Estim Creat Clear Calc Estimated GFR POC Glucose Random Glucose Calcium Magnesium Total Bilirubin AST ALT Alkaline Phosphatase Total Protein Albumin Lipase Urine Color Urine Appearance Urine pH Ur Specific [place] Urine Protein Urine Glucose (UA) Urine Ketones Urine Blood Urine Nitrite Ur Leukocyte Esterase Urine RBC Urine WBC Ur Squamous Epith Cells Urine Bacteria Hyaline Casts Urine Opiates Screen Urine Fentanyl Screen Ur Barbiturates Screen Ur Phencyclidine Scrn Ur Amphetamines Screen U Benzodiazepines Scrn Urine Cocaine Screen U Marijuana (THC) Screen Acetone, Qual Cancelled COVID-19 ([facility]) Negative COVID-19 Clin Com See Note 10/07/22 10/08/22 10/08/22 23:57 05:52 05:52 MCV 86.0 MCH 29.0 MCHC 33.7 RDW 12.7 Plt Count 321 MPV 9.9 Immature Gran % (Auto) 0.2 Neut % (Auto) 50.0 Lymph % (Auto) 34.0 [place] % (Auto) 14.1 H Eos % (Auto) 0.9 Baso % (Auto) 0.8 Lymph # (Auto) 3.1 [place] # (Auto) 1.3 H Eos # (Auto) 0.1 Baso # (Auto) 0.1 Abs Immat Gran (auto) 0.02 Absolute Neuts (auto) 4.5 Absolute Nucleated RBC 0.000 Nucleated RBC % (auto) 0.0 VBG pH VBG pCO2 VBG pO2 VBG HCO3 VBG O2 Saturation VBG Base Excess Anion Gap 13 Estim Creat Clear Calc 120.2 Estimated GFR > 60 POC Glucose 219 H Random Glucose 50 L* Calcium 8.5 D Magnesium Total Bilirubin AST ALT Alkaline Phosphatase Total Protein Albumin Lipase Urine Color Urine Appearance Urine pH Ur Specific [place] Urine Protein Urine Glucose (UA) Urine Ketones Urine Blood Urine Nitrite Ur Leukocyte Esterase Urine RBC Urine WBC Ur Squamous Epith Cells Urine Bacteria Hyaline Casts Urine Opiates Screen Urine Fentanyl Screen Ur Barbiturates Screen Ur Phencyclidine Scrn Ur Amphetamines Screen U Benzodiazepines Scrn Urine Cocaine Screen U Marijuana (THC) Screen Acetone, Qual COVID-19 ([facility]) COVID-19 Clin Com 10/08/22 07:04 MCV MCH MCHC RDW Plt Count MPV Immature Gran % (Auto) Neut % (Auto) Lymph % (Auto) [place] % (Auto) Eos % (Auto) Baso % (Auto) Lymph # (Auto) [place] # (Auto) Eos # (Auto) Baso # (Auto) Abs Immat Gran (auto) Absolute Neuts (auto) Absolute Nucleated RBC Nucleated RBC % (auto) VBG pH VBG pCO2 VBG pO2 VBG HCO3 VBG O2 Saturation VBG Base Excess Anion Gap Estim Creat Clear Calc Estimated GFR POC Glucose 62 Random Glucose Calcium Magnesium Total Bilirubin AST ALT Alkaline Phosphatase Total Protein Albumin Lipase Urine Color Urine Appearance Urine pH Ur Specific [place] Urine Protein Urine Glucose (UA) Urine Ketones Urine Blood Urine Nitrite Ur Leukocyte Esterase Urine RBC Urine WBC Ur Squamous Epith Cells Urine Bacteria Hyaline Casts Urine Opiates Screen Urine Fentanyl Screen Ur Barbiturates Screen Ur Phencyclidine Scrn Ur Amphetamines Screen U Benzodiazepines Scrn Urine Cocaine Screen U Marijuana (THC) Screen Acetone, Qual COVID-19 ([facility]) COVID-19 Clin Com Assessment and Plan (1) Cannabis hyperemesis syndrome concurrent with and due to cannabis abuse: Status: Acute Plan 27-year-old male with pertinent history of cannabis use disorder, insulin-dependent diabetes mellitus, generalized anxiety disorder who presents to the emergency department for evaluation of generalized pain / nausea/vomiting. #. Intractable nausea/vomiting with generalized abdominal discomfort:? Likely due to cannabis hyperemesis syndrome.? place on IV Toradol, IV Pepcid, Counseled against usage, no relief from capsaicin cream. recommend frequent showers continue IV fluids antiemetics and supportive care, recent CT abdomen and pelvis with similar symptoms was benign hold off on repeat imaging studies follow clinical course #. Uncontrolled insulin-dependent diabetes mellitus with hyperglycemia, due to noncompliance: uses 75/ 25 insulin 50 units b.i.d. at home,cont.Lantus ,ISS, A1c pending,on diabetic diet #. Generalized anxiety disorder:? Patient states he smokes marijuana as his anxiety is uncontrolled.? psych consult to optimize anxiolytics obtained #. GERD resume PPI #. Reactive leukocytosis resolved. Med rec Completed DVT prophylaxis: Lovenox 40mg daily Full code admitted under observation. Time Spent With Patient Time: Total time managing care of this patient today ____ minutes. Quality Stroke Does the patient have a stroke diagnosis?: No VTE Prior VTE?: No VTE Risk Level:: Medical - moderate - high VTE Device Contraindication: Treatment Not Indicated VTE Drug Contraindication: N/A - Med Ordered
[2022-10-08 07:59] LABS: Estimated Average Glucose 269 mg/dL
[2022-10-08 08:18] LABS: Glucose, Whole Blood 226 mg/dL (60-115)
--- NOTE | 2022-10-08 09:05 | PC.NURSE ---
patient c/o abdominal pain. reached out to hospitalist, waiting on further orders to medicate patient.
[2022-10-08] MEDS: Ketorolac Tromethamine 15 MG/ML VIAL IVPUSH (09:19)
[2022-10-08 09:59] VITALS: BP 151/91; PULSE 83
[2022-10-08] MEDS: Morphine Sulfate 4 MG/ML CARTRIDGE IVPUSH ×2 (10:00→21:25)
--- NOTE | 2022-10-08 12:35 | PC.NURSE ---
Report to [facility]
[2022-10-08 12:41] LABS: Glucose, Whole Blood 251 mg/dL (60-115)
[2022-10-08 12:44] VITALS: BP 166/115; PULSE 84; RESP 16; TEMP 36.8; O2SAT 95
[2022-10-08 13:12] VITALS: BP 162/106; PULSE 103; RESP 18; TEMP 36.4; O2SAT 99
[2022-10-08] MEDS: ondansetron HCL 4 MG/2 ML VIAL IVPUSH ×2 (14:01→21:29)
[2022-10-08 16:46] LABS: Glucose, Whole Blood 195 mg/dL (60-115)
[2022-10-08 19:34] VITALS: BP 123/82; PULSE 71; RESP 18; TEMP 36.7; O2SAT 98
[2022-10-08 20:25] LABS: Glucose, Whole Blood 168 mg/dL (60-115)
[2022-10-08] MEDS: Insulin Glargine,Hum.rec.anlog 100 UNIT/ML 10 ML VIAL 30 UNIT SUBCUT (21:24)
[2022-10-08 21:25] LABS: Glucose, Whole Blood 187 mg/dL (60-115)
[2022-10-08] MEDS: LORazepam 1 MG TABLET PO (21:25)
[2022-10-08] MEDS: Capsaicin 0.025% Cream 60 GM TUBE 1 APPL TOPICAL (22:35)
[2022-10-08] MEDS: Enoxaparin Sodium 40 MG/0.4 ML SYRINGE SUBCUT (22:38)
[2022-10-09 04:00] VITALS: BP 122/78; PULSE 77; RESP 18; TEMP 36.8; O2SAT 100
[2022-10-09] MEDS: Omeprazole 40 MG CAPSULE.DR PO (06:40)
[2022-10-09 07:57] LABS: Glucose, Whole Blood 72 mg/dL (60-115)
[2022-10-09 08:00] VITALS: BP 139/94; PULSE 82; RESP 18; TEMP 36.9; O2SAT 99
--- NOTE | 2022-10-09 10:58 | PM.DS ---
DS: Providers Provider Date of Service: 10/09/22 Date of admission: 10/07/22 22:01 Primary care physician: Unknown Physician Consults: 10/07/22 22:06 Consult to Psychiatry Routine Consulting Provider: Psych Covering Reason for consultation: anxiety 10/07/22 22:21 Consult to Care Team Routine Comment: Reason for consultation: cannabis use disorder DS: Diagnosis Discharge Diagnosis (1) Cannabis hyperemesis syndrome concurrent with and due to cannabis abuse: Status: Acute DS: Summary Hospital Course Hospital Course: history of presenting illness: Date of Service: 10/07/22 Chief Complaint: Nausea /vomiting This is a 27-year-old male with pertinent history of cannabis use disorder, insulin-dependent diabetes mellitus, generalized anxiety disorder who presents to the emergency department for evaluation of generalized pain / nausea/vomiting.? Patient states his symptoms started 2 days prior to presentation.? He has had multiple episodes of nonbloody emesis over the last 2 days.? Unable to tolerate p.o. intake.? It is associated with generalized abdominal discomfort, intermittent and nonradiating.? Patient admits that he is not compliant with insulin and usually misses his doses.? Also smokes marijuana every day for anxiety.? Has had poor p.o. intake over the last 2 days due to nausea.? He denies fever, chills, chest discomfort, palpitations, shortness of breath, changes in urinary habits In the emergency department, glucose found to be in the 300s. hospital course: 27-year-old male with pertinent history of cannabis use disorder, insulin-dependent diabetes mellitus, generalized anxiety disorder who presents to the emergency department for evaluation of generalized pain / nausea/vomiting. #. Intractable nausea/vomiting with generalized abdominal discomfort:? Likely due to cannabis hyperemesis syndrome, and underlying gastroparesis patient treated with Pepcid, frequent showers IV morphine and IV Toradol with good relief in symptoms patient abdominal pain has resolved he is tolerating diet, due to multiple priors abdominal imaging studies no repeat testing was done, recommend to abstain from marijuana and follow-up with gastroenterology.? #. Uncontrolled insulin-dependent diabetes mellitus with hyperglycemia, due to noncompliance, strongly recommend to follow diabetic diet and continue 75/ 25 insulin 50 units b.i.d.,follow-up with endocrinology #. Generalized anxiety disorder:?evaluated by psychiatry, patient noted to have no suicidal or homicidal ideation patient grieving of father 2 years ago, he has been sleeping and eating well patient asked for outpatient psychotherapy, recommend referral from primary care physician. ? #. GERD? continue PPI #. Reactive leukocytosis resolved. Time Spent with Patient Time attestation: Total time managing care of this patient today ____ minutes. Discharge coordination time: Greater than 30 minutes Quality: Safe Use of Opioids Does Pt have an Active Cancer Diagnosis on the Problem List?: No Quality: Stroke Does the patient have a stroke diagnosis?: No Physical Exam Vital Signs: Vital Signs: Last Vital Signs Temp 98.5 F 10/09/22 08:00 Pulse 82 10/09/22 08:00 Resp 18 10/09/22 08:00 BP 139/94 H 10/09/22 08:00 Pulse Ox 99 10/09/22 08:00 O2 Del Method 10/09/22 08:00 BMI result Body Mass Index 25.8 Const: Other: General ? Awake al ert mild distress due to pain.? Neck ? no JVD. CVS? reg ular rate rhythm, Respiratory lungs clear to auscultat ion, no respirator y distress, no whe rc, no rhonchi. G astrointestinal? n o epigastric tende rness , bowel soun ds audible, no gua rding , no rigidit y. Extremities no edema. Neuro nonfo kimmie . Skin no rash psych appropriate affect DS: Data Data Completed and Pending Completed studies during hospitalization [Text1]: Procedures Excision of Stomach, Pylorus, Via Natural or Artificial Opening Endoscopic, Diagnostic (06/22/21) Labs on day of discharge: Laboratory Results - last 24 hr 10/08/22 10/08/22 10/08/22 12:36 16:32 19:37 POC Glucose 251 H 195 H 168 H 10/08/22 10/09/22 21:17 07:01 POC Glucose 187 H 72 Discharge Plan Discharge Patient Disposition: Home, Self-Care Discharge Diagnosis: intractable nausea vomiting with epigastric pain diabetes mellitus with hyperglycemia Referrals: Physician,Unknown J [Primary Care Provider] - 1 Week Discharge Medications: Continued lorazepam [Ativan] 1 mg tablet 1 mg PO BEDTIME PRN (Reason: anxiety) Qty: 14 0RF pantoprazole 40 mg tablet,delayed release (DR/EC) 1 tab PO DAILY insulin lispro protamin-lispro 100 unit/mL (75-25) insulin pen 50 unit subcut BID Discharge Orders: Discharge Order (Routine); Ordered 10/09/22 Ordered By: Azaela Barney Diet: Diabetic diet Activity on Discharge: As tolerated Stand Alone Forms: Patient Portal Discharge page Care Plan Goals: strongly recommend to abstain from marijuana use take Metamucil daily to control constipation follow-up with gastroenterology for continued monitoring and treatment of gastroparesis Health Concerns: diabetes mellitus take insulin as before follow diabetic diet and follow-up with endocrinology Plan of Treatment: 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
[2022-10-09 11:14] LABS: Glucose, Whole Blood 66 mg/dL (60-115)
--- NOTE | 2022-10-09 13:23 | MHC.CM.PN ---
PT LIVES AT HOME WITH FAMILY AND IS INDEPENDENT WITH CARE PT HAS NO SERVICES AND NO DME PT IS BEING DISCHARGED HOME TODAY WITH NO SERVICES HE REPORTS HE IS INTERESTED IN OUTPATIENT MH TREATMENT HE HAD A THERAPIST IN [place] HOWEVER LOST CONNECTION WHEN HIS JOB CHANGED A REFERRAL WAS MADE TO [facility] TODAY VIS FAX [phone]
--- NOTE | 2022-10-09 13:29 | MHC.RECOVRN ---
Met with pt in 386 prior to discharge after consult placed to Addiction Medicine for cannabis use. Pt sitting in bed, awake, alert, easily engages in conversation. Pt reports marijuana use, INH, 3 blunts daily. Pt reports using marijuana to help with anxiety since father two years ago. Pt reports having abdominal pain/nausea/vomiting off and on x 3 years. Pt reports he has been told it is caused by different things from different doctors, unsure what is the exact cause. Educated pt regarding cyclical vomiting/cannabinoid hyperemesis syndrome and answered pts questions. Pt informs t/w that he has ceased marijuana use x 1 month and did not find relief at that time, encouraged pt to abstain for a longer period of time. Pt plans to abstain from marijuana use for at least 2 months. Pt is also being followed by GI and is in the process of obtaining a therapist. Pt does not believe he will have trouble abstaining from marijuana. Encouraged pt to reach out to t/w if support is needed or questions arise.
== END 2022-10-09 13:14 | disposition home or self-care (01) ==
LOC: HO.ED 22:13 → HO.EDOVER 22:19 → HO.S3 10-08 12:18
PROVIDERS: Physician Assistant; Admitting Provider Student in an Organized Health Care Education/Training Program; Emergency Provider Emergency Medicine; Visit Provider Hospitalist
DX: R11.15 Cyclical vomiting syndrome unrelated to migraine (principal); F12.188 Cannabis abuse with other cannabis-induced disorder; R10.13 Epigastric pain; E11.65 Type 2 diabetes mellitus with hyperglycemia; F41.1 Generalized anxiety disorder; K21.9 Gastro-esophageal reflux disease without esophagitis; E86.0 Dehydration; D72.828 Other elevated white blood cell count; Z20.822 Contact with and (suspected) exposure to COVID-19; Z91.14 Patient's other noncompliance with medication regimen; Z79.899 Other long term (current) drug therapy
CPT/HCPCS: 36415; 80048; 80053; 80307; 81001; 82009; 82803; 82947; 83036; 83690; 83735; 85025; 87635; 96361; 96372; 96374; 96375; 96376; 99221; 99285; J1200; J1650; J1885; J2270; J2405; J2765

== ENCOUNTER 2022-10-31 11:36 | Emergency (ER) | payer OTHER, SELFPAY ==
--- NOTE | ~2022-10-31 | CT_ITS ---
EXAMINATION: CT ABDOMEN AND PELVIS WITH CONTRAST CLINICAL INFORMATION: Abdominal pain COMPARISON: 05/10/2022 TECHNIQUE: Multidetector volumetric images were obtained from the superior aspect of the liver through the pubic symphysis following administration 85 mL of Omnipaque 350 intravenous contrast. Sagittal and coronal reformatted images were obtained on the technologist's workstation. Oral contrast: No This CT examination was performed using dose optimization techniques as appropriate, variously including the following: *Automated exposure control *Adjustment of mA and/or kV according to patient size (this includes techniques or standardized protocols for targeted exams where dose is matched to indication/reason for exam; i.e. extremities or head) *Use of iterative reconstruction technique DLP: 394 mGy-cm FINDINGS: LUNG BASES: The visualized lung bases are unremarkable. LIVER, GALLBLADDER, AND BILIARY TREE: The liver is normal in size, shape, and attenuation. No focal hepatic lesion or biliary ductal dilatation is present. The gallbladder is unremarkable with no evidence of radiopaque gallstones, gallbladder wall thickening, or obvious pericholecystic inflammatory changes. PANCREAS: Unremarkable. SPLEEN: Unremarkable. ADRENAL GLANDS: Unremarkable. KIDNEYS AND URETERS: The kidneys are normal in size, shape, and attenuation. No hydronephrosis, hydroureter, or calculi seen. No perinephric stranding. BLADDER: Unremarkable. GASTROINTESTINAL TRACT: The small and large bowel are unremarkable. The appendix is unremarkable. ABDOMINAL WALL: No significant hernia is appreciated. LYMPH NODES: Normal. VASCULAR: Unremarkable. PELVIC VISCERA: Unremarkable. OSSEOUS STRUCTURES: Unremarkable. CT/CT abdomen pelvis w IV con IMPRESSION: No significant abnormality. Fleischner guidelines were followed.
[2022-10-31 11:45] VITALS: BP 142/104; PULSE 99; RESP 19; TEMP 36.9; O2SAT 99; BMI 26.6
--- NOTE | 2022-10-31 11:49 | ED.GENADULT ---
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 Reports this started after he came back from [place] on a trip, since then he has not been able to eat or drink or keep anything down. He tells me he is mostly having nausea has had a few episodes of vomiting however at this time predominantly nausea. Patient reports pain to epigastric region. Reports it is crampy/ burning, severe in nature, 7 to 8/10. Patient has a history of DKA however this feels different. Denies recent marijuana smoking. Denies chest pain, shortness of breath, fevers, chills, flank pain, changes in urination or bowel habits. <ROSAURA Palacios Last Filed: 10/31/22 19:06> Related Data Home medications: Home Medications Medication Instructions Recorded Confirmed pantoprazole 40 mg tablet,delayed 1 tab PO DAILY@0630 03/15/22 10/31/22 release insulin lispro protamine-lispro 50 unit subcut DAILY 04/30/22 10/31/22 100 unit/mL (75-25) subcutaneous pen coenzyme Q10 200 mg capsule 200 mg PO BID PRN nausea/vomiting 10/31/22 10/31/22 insulin lispro protamine-lispro 60 unit subcut BEDTIME 10/31/22 10/31/22 100 unit/mL (75-25) subcutaneous pen sertraline 25 mg tablet 25 mg PO DAILY PRN anxiety attack 10/31/22 10/31/22 Previous Rx's Medication Instructions Recorded promethazine 25 mg rectal 25 mg ND Q4-6H PRN vomiting #12 ea 10/09/22 suppository <ROSAURA Garg - Last Filed: 11/01/22 11:39> Allergies/adverse reactions: Allergies Allergy/AdvReac Type Severity Reaction Status Date / Time passion fruit [PASSION FRUIT] Allergy Unknown UNK Verified 08/03/22 16:35 <ROSAURA Garg - Last Filed: 11/01/22 11:39> Review of Systems Review of Systems: Constitutional : No Weight loss, No Fever, No Chills, No Fatigue, No Malaise ENT/Mouth : No sore throat, No Rhinorrhea Eyes: No Eye Pain, No Swelling, No Redness Cardiovascular : No Chest Pain, No SOB, No Dyspnea on Exertion, No Orthopnea, No Edema, No Palpitations Respiratory : No Cough, No Sputum, No Wheezing Gastrointestinal : + Nausea, + Vomiting, No Diarrhea, No Constipation, + abdominal Pain, No Hematochezia, No Melena Genitourinary : No Dysuria, No Urinary Frequency, No Hematuria, Musculoskeletal : No joint pain, No Myalgias, No Joint Swelling Skin : No Skin Lesions, No rash Neuro : No Weakness, No Numbness, No Dizziness, No Headache Psych : No Anxiety/Panic, No Depression All other systems reviewed and are negative <ROSAURA Palacios - Last Filed: 10/31/22 19:06> Yes all other systems are reviewed and are negative <ROSAURA Palacios Last Filed: 10/31/22 19:06> COUNTS INCLUDE 234 BEDS AT THE [facility] Past Medical History Attestation statement: The following information was validated with the patient. <ROSAURA Palacios Last Filed: 10/31/22 19:06> Source: old records reviewed and nursing notes reviewed <ROSAURA Palacios Last Filed: 10/31/22 19:06> Medical History: Medical History Cyclical vomiting Diabetes Diabetic gastroparesis Diabetic keto-acidosis Esophageal ulcer Gastroparesis Leukocytosis Noncompliance with medication regimen Persistent hyperactive cannabis intoxication delirium <ROSAURA Garg - Last Filed: 11/01/22 11:39> Surgical History: Surgical History No pertinent past surgical history <ROSAURA Garg - Last Filed: 11/01/22 11:39> Family History Family History: Family History Other No family history of coronary artery disease <ROSAURA Garg - Last Filed: 11/01/22 11:39> Social History Social History: Social History Household Members: Significant Other Household Members Other:: 2 Housing: Apartment Do you presently have visiting nurse or other home services: No Alcohol intake: never Patient Tobacco Use Status: Never used Tobacco Smoked in Last 30 Days: No e-Cigarette/Vaping Use: Former Use Use of substances other than those prescribed or required for medical reasons: Yes Substance Use Type: Marijuana Advance Directives: Yes Advance Directives on File: Yes Advance Directives Date on File: 01/22/21 service: No Current occupational status: employed <ROSAURA Garg - Last Filed: 11/01/22 11:39> Physical Exam ED Vital Signs: Vital Signs - 24 hr 10/31/22 11:45 10/31/22 14:56 10/31/22 18:00 Temperature 98.5 F 97.4 F 96.9 F Pulse Rate 99 87 95 Respiratory Rate 19 16 16 Blood Pressure 142/104 H 138/101 H 131/91 H Pulse Oximetry 99 100 98 Oxygen Delivery Method Room Air Room Air Room Air BMI result Body Mass Index 26.6 <ROSAURA Garg - Last Filed: 11/01/22 11:39> Vital Signs - 24 hr 10/31/22 11:45 10/31/22 14:56 10/31/22 18:00 Temperature 98.5 F 97.4 F 96.9 F Pulse Rate 99 87 95 Respiratory Rate 19 16 16 Blood Pressure 142/104 H 138/101 H 131/91 H Pulse Oximetry 99 100 98 Oxygen Delivery Method Room Air Room Air Room Air BMI result Body Mass Index 26.6 vss <ROSAURA Palacios Last Filed: 10/31/22 19:06> Appearance: Alert.? Oriented X3.? No acute distress.? Head: Normocephalic, atraumatic, no step-offs or deformities Eyes: Pupils equal, round and reactive to light.? Neck: Normal inspection.? Neck supple.? CVS: Normal heart rate and rhythm.? Pulses normal.? Respiratory: No respiratory distress.? Breath sounds normal.? Abdomen: Soft and + tenderness epigastric and right upper quadrant. Negative Yu sign. Skin: Skin warm and dry.? Normal skin color.? Normal skin turgor.? Extremities: No lower extremity edema.? No calf ttp. 5/5 strength to bilateral upper and lower extremities Neuro: Oriented X 3.? No motor deficit.? No sensory deficit. CN 2-12 intact <ROSAURA Palacios Last Filed: 10/31/22 19:06> Course Course Course Narrative: RME: 27 yold male with pmh of DM, gastropereses and frequent DKA presents to the ED for dehydration. Patient states while in trip in [place] felt dehydration and was not able to eat. patient states abdominal pain, but no [place]. patient states complaints wiht meds. Labs, SARS, and EKG. POC glucose is 350 <ROSAURA Garg - Last Filed: 11/01/22 11:39> Reevaluation(s) Reevaluation #1: Patient's CBC within normal limits. Chemistry with sodium of 131, BUN of 21 likely secondary to dehydration. Patient's initial point of care 356, repeat was 40 was given sugar, crackers, D10 and glucose gel, his point of care at this time on his monitor is 149. No elevated anion gap. Total bilirubin 1.5, it has been this high in the past. Acetone negative unlikely starvation ketosis or diabetic ketoacidosis. Negative troponin, EKG nonischemic. UA pending and CT of the abdomen and pelvis pending. This is likely diabetic gastroparesis and patient will likely require hospital admission. <ROSAURA Palacios Last Filed: 10/31/22 19:06> Time: 17:41 <ROSAURA Palacios Last Filed: 10/31/22 19:06> Reevaluation #2: Spoke to , dicussed case with him, patient to be admitted for diabetic gastroparesis not tolerating p.o.. He will pass this onto the night hospitalist if he does not get around to admitting the patient. <ROSAURA Palacios - Last Filed: 10/31/22 19:06> Time: 17:42 <ROASURA Palacios - Last Filed: 10/31/22 19:06> Reevaluation #3: Patient requesting to leave refusing admission patient states he wants to go home. He says he will come back with new or worsening symptoms. Will sign out against medical advice. <ROSAURA Palacios - Last Filed: 10/31/22 19:06> Time: 19:01 <ROSAURA Palacios - Last Filed: 10/31/22 19:06> Medications Administered Discontinued Medications Generic Name Dose Route Start Last Admin Trade Name Freq PRN Reason Stop Dose Admin Glucose 15 gm 10/31/22 16:09 10/31/22 16:32 Glucose Gel 15 Gm Gel..Gram. PO 10/31/22 16:10 15 gm ONCE ONE Administration Dextrose 1,000 mls @ 50 mls/hr 10/31/22 16:15 10/31/22 16:32 D10 IVCONT 50 mls/hr .Q20H DESTINY Administration Iohexol 100 ml 10/31/22 17:53 10/31/22 17:53 Iohexol 350 Mg/Ml 100 Ml Infus..Btl IV 10/31/22 17:54 85 ml ONCE ONE Administration <ROSAURA Garg - Last Filed: 11/01/22 11:39> Medications Administered Discontinued Medications Generic Name Dose Route Start Last Admin Trade Name Freq PRN Reason Stop Dose Admin Glucose 15 gm 10/31/22 16:09 10/31/22 16:32 Glucose Gel 15 Gm Gel..Gram. PO 10/31/22 16:10 15 gm ONCE ONE Administration Dextrose 1,000 mls @ 50 mls/hr 10/31/22 16:15 10/31/22 16:32 D10 IVCONT 50 mls/hr .Q20H DESTINY Administration Iohexol 100 ml 10/31/22 17:53 10/31/22 17:53 Iohexol 350 Mg/Ml 100 Ml Infus..Btl IV 10/31/22 17:54 85 ml ONCE ONE Administration <ROSAURA Palacios - Last Filed: 10/31/22 19:06> Medical Decision Making Medical Decision Making [facility] Narrative: 1610 27 year old male presents with nausea, vomiting, lower abdominal pain x5 days. Reports inability to keep down food. History of poorly-controlled diabetes and cyclic vomiting. Physical examination with discomfort with palpation of epigastric region and right upper quadrant. Likely diabetic gastroparesis versus viral illness versus dehydration. Less likely DKA. History and physical not consistent with appendicitis, cholecystitis, diverticulitis, pancreatitis, obstruction Plan labs, urine, imaging Triage patient's sugar was noted to be 350 however point of care was obtained patient's sugar now 40. He was given sugar, juice. Will start D10 and glucose gel <ROSAURA Palacios - Last Filed: 10/31/22 19:06> Differential Diagnosis Differential Diagnoses: The differential diagnosis associated with the presentation includes <ROSAURA Palacios Last Filed: 10/31/22 19:06> Likely diabetic gastroparesis versus viral illness versus dehydration. Less likely DKA. History and physical not consistent with appendicitis, cholecystitis, diverticulitis, pancreatitis, obstruction <ROSAURA Palacios Last Filed: 10/31/22 19:06> Admission/Observation Consideration of admission/observation: Escalation of care including admission/observation considered <ROSAURA Palacios Last Filed: 10/31/22 19:06> Consult Healthcare Provider Management of the patient was discussed with: Hospitalist () <ROSAURA Palacios Last Filed: 10/31/22 19:06> Lab Data MDM Lab Attestation statement: I reviewed the patient's lab results. <ROSAURA Palacios Last Filed: 10/31/22 19:06> Result Diagrams: 10/31/22 12:06 10/31/22 12:06 <ROSAURA Garg Last Filed: 11/01/22 11:39> Labs: Lab Results 10/31/22 10/31/22 10/31/22 Range/Units 11:51 12:06 12:06 WBC 8.2 (4.8-10.8) X10*3/uL RBC 5.78 (4.60-5.80) X10*6/uL Hgb 16.6 (14.0-18.0) g/dl Hct 48.7 (42.0-52.0) % MCV 84.3 (80.0-98.0) fL MCH 28.7 (27.0-33.0) pg MCHC 34.1 (31.0-36.0) g/dl RDW 11.8 (11.0-16.0) % Plt Count 326 (160-400) X10*3/uL MPV 9.9 (9.4-12.4) fL Immature Gran % (Auto) 0.2 (0.0-0.4) % Neut % (Auto) 71.1 (45-73) % Lymph % (Auto) 15.8 L (20-40) % Grainger % (Auto) 12.0 H (2-11) % Eos % (Auto) 0.4 (0-4) % Baso % (Auto) 0.5 (0-2) % Lymph # (Auto) 1.3 (1.2-4.9) X10*3/uL Grainger # (Auto) 1.0 (0.1-1.2) X10*3/uL Eos # (Auto) 0.0 (0.0-0.4) X10*3/uL Baso # (Auto) 0.0 (0.0-0.2) X10*3/uL Abs Immat Gran (auto) 0.02 (0.00-0.03) X10*3/uL Absolute Neuts (auto) 5.9 (2.0-8.3) x10*3/uL Absolute Nucleated RBC 0.000 (0.0-0.012) X10*3/uL Nucleated RBC % (auto) 0.0 (0.0-0.2) /100WBC PT (10.0-13.1) SEC INR (0.9-1.1) APTT (26.0-36.4) SEC Sodium 131 L (135-145) mmol/L Potassium 4.0 (3.3-5.1) mmol/L Chloride 91 L (96-108) mmol/L Carbon Dioxide 29 (22-29) mmol/L Anion Gap 15 (12-20) BUN 21 H (9-16) mg/dL Creatinine 1.35 (0.5-1.4) mg/dL Estim Creat Clear Calc 74.8 Estimated GFR > 60 POC Glucose 356 H* (60-115) mg/dL Random Glucose 377 H* (60-115) mg/dL Calcium 9.8 D (8.4-10.2) mg/dL Total Bilirubin 1.5 H (0.0-1.0) mg/dL AST 11 (5-37) U/L ALT 12 (0-40) U/L Alkaline Phosphatase 81 (39-117) U/L Troponin I High Sens (<3.5-35.0) ng/L Total Protein 7.5 (6.5-8.0) g/dL Albumin 4.6 (3.5-5.0) g/dL Lipase 15 (8-78) U/L Acetone, Qual Negative (Negative) Influenza Type A (PCR) (Negative) Influenza Type B (PCR) (Negative) RSV RNA Qual (PCR) (Negative) SARS-CoV-2 RNA (RT-PCR) (Negative) 10/31/22 10/31/22 10/31/22 Range/Units 12:06 12:06 12:06 WBC (4.8-10.8) X10*3/uL RBC (4.60-5.80) X10*6/uL Hgb (14.0-18.0) g/dl Hct (42.0-52.0) % MCV (80.0-98.0) fL MCH (27.0-33.0) pg MCHC (31.0-36.0) g/dl RDW (11.0-16.0) % Plt Count (160-400) X10*3/uL MPV (9.4-12.4) fL Immature Gran % (Auto) (0.0-0.4) % Neut % (Auto) (45-73) % Lymph % (Auto) (20-40) % Grainger % (Auto) (2-11) % Eos % (Auto) (0-4) % Baso % (Auto) (0-2) % Lymph # (Auto) (1.2-4.9) X10*3/uL Grainger # (Auto) (0.1-1.2) X10*3/uL Eos # (Auto) (0.0-0.4) X10*3/uL Baso # (Auto) (0.0-0.2) X10*3/uL Abs Immat Gran (auto) (0.00-0.03) X10*3/uL Absolute Neuts (auto) (2.0-8.3) x10*3/uL Absolute Nucleated RBC (0.0-0.012) X10*3/uL Nucleated RBC % (auto) (0.0-0.2) /100WBC PT 10.9 (10.0-13.1) SEC INR 1.0 (0.9-1.1) APTT 29.0 (26.0-36.4) SEC Sodium (135-145) mmol/L Potassium (3.3-5.1) mmol/L Chloride (96-108) mmol/L Carbon Dioxide (22-29) mmol/L Anion Gap (12-20) BUN (9-16) mg/dL Creatinine (0.5-1.4) mg/dL Estim Creat Clear Calc Estimated GFR POC Glucose (60-115) mg/dL Random Glucose (60-115) mg/dL Calcium (8.4-10.2) mg/dL Total Bilirubin (0.0-1.0) mg/dL AST (5-37) U/L ALT (0-40) U/L Alkaline Phosphatase (39-117) U/L Troponin I High Sens 3.9 (<3.5-35.0) ng/L Total Protein (6.5-8.0) g/dL Albumin (3.5-5.0) g/dL Lipase (8-78) U/L Acetone, Qual (Negative) Influenza Type A (PCR) NEGATIVE (Negative) Influenza Type B (PCR) NEGATIVE (Negative) RSV RNA Qual (PCR) NEGATIVE (Negative) SARS-CoV-2 RNA (RT-PCR) NEGATIVE (Negative) 03/26/23 03/26/23 03/26/23 Range/Units 15:44 16:10 18:22 WBC (4.8-10.8) X10*3/uL RBC (4.60-5.80) X10*6/uL Hgb (14.0-18.0) g/dl Hct (42.0-52.0) % MCV (80.0-98.0) fL MCH (27.0-33.0) pg MCHC (31.0-36.0) g/dl RDW (11.0-16.0) % Plt Count (160-400) X10*3/uL MPV (9.4-12.4) fL Immature Gran % (Auto) (0.0-0.4) % Neut % (Auto) (45-73) % Lymph % (Auto) (20-40) % Grainger % (Auto) (2-11) % Eos % (Auto) (0-4) % Baso % (Auto) (0-2) % Lymph # (Auto) (1.2-4.9) X10*3/uL Grainger # (Auto) (0.1-1.2) X10*3/uL Eos # (Auto) (0.0-0.4) X10*3/uL Baso # (Auto) (0.0-0.2) X10*3/uL Abs Immat Gran (auto) (0.00-0.03) X10*3/uL Absolute Neuts (auto) (2.0-8.3) x10*3/uL Absolute Nucleated RBC (0.0-0.012) X10*3/uL Nucleated RBC % (auto) (0.0-0.2) /100WBC PT (10.0-13.1) SEC INR (0.9-1.1) APTT (26.0-36.4) SEC Sodium (135-145) mmol/L Potassium (3.3-5.1) mmol/L Chloride (96-108) mmol/L Carbon Dioxide (22-29) mmol/L Anion Gap (12-20) BUN (9-16) mg/dL Creatinine (0.5-1.4) mg/dL Estim Creat Clear Calc Estimated GFR POC Glucose 40 L* 48 L* (60-115) mg/dL Random Glucose (60-115) mg/dL Calcium (8.4-10.2) mg/dL Total Bilirubin (0.0-1.0) mg/dL AST (5-37) U/L ALT (0-40) U/L Alkaline Phosphatase (39-117) U/L Troponin I High Sens (<3.5-35.0) ng/L Total Protein (6.5-8.0) g/dL Albumin (3.5-5.0) g/dL Lipase (8-78) U/L Acetone, Qual Negative (Negative) Influenza Type A (PCR) (Negative) Influenza Type B (PCR) (Negative) RSV RNA Qual (PCR) (Negative) SARS-CoV-2 RNA (RT-PCR) (Negative) 10/31/22 Range/Units 19:17 WBC (4.8-10.8) X10*3/uL RBC (4.60-5.80) X10*6/uL Hgb (14.0-18.0) g/dl Hct (42.0-52.0) % MCV (80.0-98.0) fL MCH (27.0-33.0) pg MCHC (31.0-36.0) g/dl RDW (11.0-16.0) % Plt Count (160-400) X10*3/uL MPV (9.4-12.4) fL Immature Gran % (Auto) (0.0-0.4) % Neut % (Auto) (45-73) % Lymph % (Auto) (20-40) % Grainger % (Auto) (2-11) % Eos % (Auto) (0-4) % Baso % (Auto) (0-2) % Lymph # (Auto) (1.2-4.9) X10*3/uL Grainger # (Auto) (0.1-1.2) X10*3/uL Eos # (Auto) (0.0-0.4) X10*3/uL Baso # (Auto) (0.0-0.2) X10*3/uL Abs Immat Gran (auto) (0.00-0.03) X10*3/uL Absolute Neuts (auto) (2.0-8.3) x10*3/uL Absolute Nucleated RBC (0.0-0.012) X10*3/uL Nucleated RBC % (auto) (0.0-0.2) /100WBC PT (10.0-13.1) SEC INR (0.9-1.1) APTT (26.0-36.4) SEC Sodium (135-145) mmol/L Potassium (3.3-5.1) mmol/L Chloride (96-108) mmol/L Carbon Dioxide (22-29) mmol/L Anion Gap (12-20) BUN (9-16) mg/dL Creatinine (0.5-1.4) mg/dL Estim Creat Clear Calc Estimated GFR POC Glucose 185 H (60-115) mg/dL Random Glucose (60-115) mg/dL Calcium (8.4-10.2) mg/dL Total Bilirubin (0.0-1.0) mg/dL AST (5-37) U/L ALT (0-40) U/L Alkaline Phosphatase (39-117) U/L Troponin I High Sens (<3.5-35.0) ng/L Total Protein (6.5-8.0) g/dL Albumin (3.5-5.0) g/dL Lipase (8-78) U/L Acetone, Qual (Negative) Influenza Type A (PCR) (Negative) Influenza Type B (PCR) (Negative) RSV RNA Qual (PCR) (Negative) SARS-CoV-2 RNA (RT-PCR) (Negative) <ROSAURA Garg - Last Filed: 11/01/22 11:39> Lab Results 10/31/22 10/31/22 10/31/22 Range/Units 11:51 12:06 12:06 WBC 8.2 (4.8-10.8) X10*3/uL RBC 5.78 (4.60-5.80) X10*6/uL Hgb 16.6 (14.0-18.0) g/dl Hct 48.7 (42.0-52.0) % MCV 84.3 (80.0-98.0) fL MCH 28.7 (27.0-33.0) pg MCHC 34.1 (31.0-36.0) g/dl RDW 11.8 (11.0-16.0) % Plt Count 326 (160-400) X10*3/uL MPV 9.9 (9.4-12.4) fL Immature Gran % (Auto) 0.2 (0.0-0.4) % Neut % (Auto) 71.1 (45-73) % Lymph % (Auto) 15.8 L (20-40) % Grainger % (Auto) 12.0 H (2-11) % Eos % (Auto) 0.4 (0-4) % Baso % (Auto) 0.5 (0-2) % Lymph # (Auto) 1.3 (1.2-4.9) X10*3/uL Grainger # (Auto) 1.0 (0.1-1.2) X10*3/uL Eos # (Auto) 0.0 (0.0-0.4) X10*3/uL Baso # (Auto) 0.0 (0.0-0.2) X10*3/uL Abs Immat Gran (auto) 0.02 (0.00-0.03) X10*3/uL Absolute Neuts (auto) 5.9 (2.0-8.3) x10*3/uL Absolute Nucleated RBC 0.000 (0.0-0.012) X10*3/uL Nucleated RBC % (auto) 0.0 (0.0-0.2) /100WBC PT (10.0-13.1) SEC INR (0.9-1.1) APTT (26.0-36.4) SEC Sodium 131 L (135-145) mmol/L Potassium 4.0 (3.3-5.1) mmol/L Chloride 91 L (96-108) mmol/L Carbon Dioxide 29 (22-29) mmol/L Anion Gap 15 (12-20) BUN 21 H (9-16) mg/dL Creatinine 1.35 (0.5-1.4) mg/dL Estim Creat Clear Calc 74.8 Estimated GFR > 60 POC Glucose 356 H* (60-115) mg/dL Random Glucose 377 H* (60-115) mg/dL Calcium 9.8 D (8.4-10.2) mg/dL Total Bilirubin 1.5 H (0.0-1.0) mg/dL AST 11 (5-37) U/L ALT 12 (0-40) U/L Alkaline Phosphatase 81 (39-117) U/L Troponin I High Sens (<3.5-35.0) ng/L Total Protein 7.5 (6.5-8.0) g/dL Albumin 4.6 (3.5-5.0) g/dL Lipase 15 (8-78) U/L Acetone, Qual Negative (Negative) Influenza Type A (PCR) (Negative) Influenza Type B (PCR) (Negative) RSV RNA Qual (PCR) (Negative) SARS-CoV-2 RNA (RT-PCR) (Negative) 10/31/22 10/31/22 10/31/22 Range/Units 12:06 12:06 12:06 WBC (4.8-10.8) X10*3/uL RBC (4.60-5.80) X10*6/uL Hgb (14.0-18.0) g/dl Hct (42.0-52.0) % MCV (80.0-98.0) fL MCH (27.0-33.0) pg MCHC (31.0-36.0) g/dl RDW (11.0-16.0) % Plt Count (160-400) X10*3/uL MPV (9.4-12.4) fL Immature Gran % (Auto) (0.0-0.4) % Neut % (Auto) (45-73) % Lymph % (Auto) (20-40) % Grainger % (Auto) (2-11) % Eos % (Auto) (0-4) % Baso % (Auto) (0-2) % Lymph # (Auto) (1.2-4.9) X10*3/uL Grainger # (Auto) (0.1-1.2) X10*3/uL Eos # (Auto) (0.0-0.4) X10*3/uL Baso # (Auto) (0.0-0.2) X10*3/uL Abs Immat Gran (auto) (0.00-0.03) X10*3/uL Absolute Neuts (auto) (2.0-8.3) x10*3/uL Absolute Nucleated RBC (0.0-0.012) X10*3/uL Nucleated RBC % (auto) (0.0-0.2) /100WBC PT 10.9 (10.0-13.1) SEC INR 1.0 (0.9-1.1) APTT 29.0 (26.0-36.4) SEC Sodium (135-145) mmol/L Potassium (3.3-5.1) mmol/L Chloride (96-108) mmol/L Carbon Dioxide (22-29) mmol/L Anion Gap (12-20) BUN (9-16) mg/dL Creatinine (0.5-1.4) mg/dL Estim Creat Clear Calc Estimated GFR POC Glucose (60-115) mg/dL Random Glucose (60-115) mg/dL Calcium (8.4-10.2) mg/dL Total Bilirubin (0.0-1.0) mg/dL AST (5-37) U/L ALT (0-40) U/L Alkaline Phosphatase (39-117) U/L Troponin I High Sens 3.9 (<3.5-35.0) ng/L Total Protein (6.5-8.0) g/dL Albumin (3.5-5.0) g/dL Lipase (8-78) U/L Acetone, Qual (Negative) Influenza Type A (PCR) NEGATIVE (Negative) Influenza Type B (PCR) NEGATIVE (Negative) RSV RNA Qual (PCR) NEGATIVE (Negative) SARS-CoV-2 RNA (RT-PCR) NEGATIVE (Negative) 10/31/22 10/31/22 10/31/22 Range/Units 15:44 16:10 18:22 WBC (4.8-10.8) X10*3/uL RBC (4.60-5.80) X10*6/uL Hgb (14.0-18.0) g/dl Hct (42.0-52.0) % MCV (80.0-98.0) fL MCH (27.0-33.0) pg MCHC (31.0-36.0) g/dl RDW (11.0-16.0) % Plt Count (160-400) X10*3/uL MPV (9.4-12.4) fL Immature Gran % (Auto) (0.0-0.4) % Neut % (Auto) (45-73) % Lymph % (Auto) (20-40) % Grainger % (Auto) (2-11) % Eos % (Auto) (0-4) % Baso % (Auto) (0-2) % Lymph # (Auto) (1.2-4.9) X10*3/uL Grainger # (Auto) (0.1-1.2) X10*3/uL Eos # (Auto) (0.0-0.4) X10*3/uL Baso # (Auto) (0.0-0.2) X10*3/uL Abs Immat Gran (auto) (0.00-0.03) X10*3/uL Absolute Neuts (auto) (2.0-8.3) x10*3/uL Absolute Nucleated RBC (0.0-0.012) X10*3/uL Nucleated RBC % (auto) (0.0-0.2) /100WBC PT (10.0-13.1) SEC INR (0.9-1.1) APTT (26.0-36.4) SEC Sodium (135-145) mmol/L Potassium (3.3-5.1) mmol/L Chloride (96-108) mmol/L Carbon Dioxide (22-29) mmol/L Anion Gap (12-20) BUN (9-16) mg/dL Creatinine (0.5-1.4) mg/dL Estim Creat Clear Calc Estimated GFR POC Glucose 40 L* 48 L* (60-115) mg/dL Random Glucose (60-115) mg/dL Calcium (8.4-10.2) mg/dL Total Bilirubin (0.0-1.0) mg/dL AST (5-37) U/L ALT (0-40) U/L Alkaline Phosphatase (39-117) U/L Troponin I High Sens (<3.5-35.0) ng/L Total Protein (6.5-8.0) g/dL Albumin (3.5-5.0) g/dL Lipase (8-78) U/L Acetone, Qual Negative (Negative) Influenza Type A (PCR) (Negative) Influenza Type B (PCR) (Negative) RSV RNA Qual (PCR) (Negative) SARS-CoV-2 RNA (RT-PCR) (Negative) 10/31/22 Range/Units 19:17 WBC (4.8-10.8) X10*3/uL RBC (4.60-5.80) X10*6/uL Hgb (14.0-18.0) g/dl Hct (42.0-52.0) % MCV (80.0-98.0) fL MCH (27.0-33.0) pg MCHC (31.0-36.0) g/dl RDW (11.0-16.0) % Plt Count (160-400) X10*3/uL MPV (9.4-12.4) fL Immature Gran % (Auto) (0.0-0.4) % Neut % (Auto) (45-73) % Lymph % (Auto) (20-40) % Grainger % (Auto) (2-11) % Eos % (Auto) (0-4) % Baso % (Auto) (0-2) % Lymph # (Auto) (1.2-4.9) X10*3/uL Grainger # (Auto) (0.1-1.2) X10*3/uL Eos # (Auto) (0.0-0.4) X10*3/uL Baso # (Auto) (0.0-0.2) X10*3/uL Abs Immat Gran (auto) (0.00-0.03) X10*3/uL Absolute Neuts (auto) (2.0-8.3) x10*3/uL Absolute Nucleated RBC (0.0-0.012) X10*3/uL Nucleated RBC % (auto) (0.0-0.2) /100WBC PT (10.0-13.1) SEC INR (0.9-1.1) APTT (26.0-36.4) SEC Sodium (135-145) mmol/L Potassium (3.3-5.1) mmol/L Chloride (96-108) mmol/L Carbon Dioxide (22-29) mmol/L Anion Gap (12-20) BUN (9-16) mg/dL Creatinine (0.5-1.4) mg/dL Estim Creat Clear Calc Estimated GFR POC Glucose 185 H (60-115) mg/dL Random Glucose (60-115) mg/dL Calcium (8.4-10.2) mg/dL Total Bilirubin (0.0-1.0) mg/dL AST (5-37) U/L ALT (0-40) U/L Alkaline Phosphatase (39-117) U/L Troponin I High Sens (<3.5-35.0) ng/L Total Protein (6.5-8.0) g/dL Albumin (3.5-5.0) g/dL Lipase (8-78) U/L Acetone, Qual (Negative) Influenza Type A (PCR) (Negative) Influenza Type B (PCR) (Negative) RSV RNA Qual (PCR) (Negative) SARS-CoV-2 RNA (RT-PCR) (Negative) <ROSAURA Palacios - Last Filed: 10/31/22 19:06> Radiology Impression Discussion of test interpretation with radiology: I have reviewed the radiologist's reading. <ROSAURA Palacios - Last Filed: 10/31/22 19:06> Core Measures AMI core measures followed: Yes <ROSAURA Palacios - Last Filed: 10/31/22 19:06> Measure exclusions: not indicated <ROSAURA Palacios - Last Filed: 10/31/22 19:06> Critical Care Time Critical Care Time Critical Care Time: No <ROSAURA Palacios - Last Filed: 10/31/22 19:06> Discharge Plan Discharge Clinical Impression: Diabetic gastroparesis, Left against medical advice <ROSAURA Garg Last Filed: 11/01/22 11:39> Patient Disposition: Home, Self-Care <ROSAURA Garg Last Filed: 11/01/22 11:39> Instructions: Against Medical Advice (ED), Gastroparesis (ED) <ROSAURA Garg Last Filed: 11/01/22 11:39> Additional Instructions: TAKE YOUR MEDICATIONS PRESCRIBED. IF YOU WERE PRESCRIBED ANTIBIOTICS TODAY, IT IS IMPORTANT THAT YOU TAKE YOUR MEDICATION TO THEIR ENTIRETY, DO NOT SKIP ANY DOSES, DO NOT FINISH THEM EARLY. FOLLOW-UP WITH YOUR PRIMARY CARE PROVIDER THIS WEEK. RETURN TO THE EMERGENCY DEPARTMENT WITH NEW OR WORSENING SYMPTOMS. SUCH FEVERS, CHILLS, CHEST PAIN, SHORTNESS OF BREATH, NAUSEA, VOMITING, DIZZINESS, HEADACHE, VISION CHANGES, L[facility] IN CASE OF EMERGENCY CALL 911 HE DECIDED TO LEAVE AGAINST MEDICAL ADVICE RISKS INCLUDE , INFECTION, WORSENING SYMPTOMS, DECREASED QUALITY OF LIFE, UNDIAGNOSED ILLNESSES. CT/CT abdomen pelvis w IV con IMPRESSION: No significant abnormality.? ? Fleischner guidelines were followed. <ROSAURA Garg - Last Filed: 11/01/22 11:39> Prescriptions: No Action pantoprazole 40 mg tablet,delayed release (DR/EC) 1 tab PO DAILY@0630 insulin lispro protamin-lispro 100 unit/mL (75-25) insulin pen 50 unit subcut DAILY Rx Instructions: before meals promethazine 25 mg suppository 25 mg ND Q4-6H PRN (Reason: vomiting) Qty: 12 0RF sertraline 25 mg tablet 25 mg PO DAILY PRN (Reason: anxiety attack) insulin lispro protamin-lispro 100 unit/mL (75-25) insulin pen 60 unit subcut BEDTIME Rx Instructions: before meals coenzyme Q10 200 mg capsule 200 mg PO BID PRN (Reason: nausea/vomiting) <ROSAURA Garg - Last Filed: 11/01/22 11:39> Referrals: Physician,Unknown J [Primary Care Provider] - 2 days <ROSAURA Garg - Last Filed: 11/01/22 11:39> Stand Alone Forms: Against Medical Advice <ROSAURA Garg - Last Filed: 11/01/22 11:39> Interventions: ED Discharge Assessment Last Done: 10/31/22 19:45 <ROSAURA Garg - Last Filed: 11/01/22 11:39> Discharge Date/Time: 10/31/22 19:45 <ROSAURA Garg - Last Filed: 11/01/22 11:39>
--- NOTE | 2022-10-31 11:51 | ECG_ITS ---
Test Reason : ABD PAIN. DM Blood Pressure : / mmHG Vent. Rate : 094 BPM Atrial Rate : 094 BPM P-R Int : 130 ms QRS Dur : 078 ms QT Int : 358 ms P-R-T Axes : 045 053 041 degrees QTc Int : 447 ms Normal sinus rhythm Nonspecific T wave abnormality Abnormal ECG When compared with ECG of 26-SEP-2022 00:33, Nonspecific ST and T wave abnormality less prominent Referred By: Moshe Worthy Electronically Signed By:WENDY BRAXTON
[2022-10-31 11:55] LABS: Glucose, Whole Blood 356 mg/dL (60-115)
[2022-10-31 12:11] LABS: MANUAL DIFF FLAG NO
[2022-10-31 12:12] LABS: Basophils Percent Auto 0.5 % (0-2); Eosinophils Percent Auto 0.4 % (0-4); Hematocrit 48.7 % (42.0-52.0); Hemoglobin 16.6 g/dl (14.0-18.0); Imm Gran Abs Auto 0.02 X10*3/uL (0.00-0.03); Imm Gran Pct Auto 0.2 % (0.0-0.4); Lymphocytes Absolute Auto 1.3 X10*3/uL (1.2-4.9); Lymphocytes Percent Auto 15.8 % (20-40); Mean Corpuscular HGB Conc 34.1 g/dl (31.0-36.0); Mean Corpuscular Hemoglobin 28.7 pg (27.0-33.0); Mean Corpuscular Volume 84.3 fL (80.0-98.0); Mean Platelet Volume 9.9 fL (9.4-12.4); Neutrophils Absolute Auto 5.9 x10*3/uL (2.0-8.3); Neutrophils Percent Auto 71.1 % (45-73); Platelet Count 326 X10*3/uL (160-400); Red Blood Count 5.78 X10*6/uL (4.60-5.80); Red Cell Distribution Width 11.8 % (11.0-16.0); White Blood Count 8.2 X10*3/uL (4.8-10.8)
[2022-10-31 12:18] LABS: Prothrombin Time 10.9 SEC (10.0-13.1)
[2022-10-31 12:24] LABS: Acetone, serum QL Negative (Negative)
[2022-10-31 12:36] LABS: Troponin-I High Sensitivity 3.9 ng/L (<3.5-35.0)
[2022-10-31 12:39] LABS: Alanine Aminotransferase 12 U/L (0-40); Albumin Level 4.6 g/dL (3.5-5.0); Alkaline Phosphatase 81 U/L (39-117); Anion Gap 15 (12-20); Aspartate Amino Transferase 11 U/L (5-37); Bilirubin Total 1.5 mg/dL (0.0-1.0); Blood Urea Nitrogen 21 mg/dL (9-16); Calcium 9.8 mg/dL (8.4-10.2); Carbon Dioxide 29 mmol/L (22-29); Chloride 91 mmol/L (96-108); Creatinine Clr Calc Pharmacy 74.8; Estimated Glomerular Filt Rate > 60; Glucose Random 377 mg/dL (60-115); Lipase 15 U/L (8-78); Sodium 131 mmol/L (135-145); Total Protein 7.5 g/dL (6.5-8.0)
[2022-10-31 12:54] LABS: Influenza A PCR NEGATIVE (Negative); Influenza B PCR NEGATIVE (Negative); Resp Syncy Virus RNA Qual PCR NEGATIVE (Negative); SARS COV2 PCR INHOUSE NEGATIVE (Negative)
[2022-10-31 14:56] VITALS: BP 138/101; PULSE 87; RESP 16; TEMP 36.3; O2SAT 100
--- NOTE | 2022-10-31 15:02 | PC.NURSE ---
Patient calm and cooperative laying on stretcher. Patient stating that he is having 9/10 abdominal pain. IV obtained at this time.
--- NOTE | 2022-10-31 15:52 | PC.NURSE ---
Patient called this nurse into the room and stated that his sugar was low, 66 according to his monitor. This nurse check a POC and found his sugar to be 40. Patient given [place] juice and a snack and Dr Foote was made aware of the sugar.
[2022-10-31 16:14] LABS: Glucose, Whole Blood 40 mg/dL (60-115)
[2022-10-31 16:14] LABS: Glucose, Whole Blood 48 mg/dL (60-115)
[2022-10-31] MEDS: Dextrose 10 % 1,000 ML 50 ML IVCONT (16:32)
[2022-10-31] MEDS: Glucose Gel 15 GM GEL..GRAM. PO (16:32)
[2022-10-31] MEDS: iohexoL 350 MG/ML 100 ML INFUS..BTL IV (17:53)
[2022-10-31 18:00] VITALS: BP 131/91; PULSE 95; RESP 16; TEMP 36.1; O2SAT 98
[2022-10-31 18:37] LABS: Acetone, serum QL Negative (Negative)
--- NOTE | 2022-10-31 18:47 | PHA.MEDREC ---
Pharmacy Consult ? Medication Reconciliation Pharmacy has completed the medication reconciliation. Spoke to patient to confirm meds.
[2022-10-31 19:21] LABS: Glucose, Whole Blood 185 mg/dL (60-115)
== END 2022-10-31 19:45 | disposition home or self-care (01) ==
PROVIDERS: Physician Assistant; Emergency Provider Internal Medicine
DX: E11.43 Type 2 diabetes mellitus with diabetic autonomic (poly)neuropathy (principal); R10.10 Upper abdominal pain, unspecified; E86.0 Dehydration; R07.89 Other chest pain; F12.90 Cannabis use, unspecified, uncomplicated; Z20.822 Contact with and (suspected) exposure to COVID-19; Z20.828 Contact with and (suspected) exposure to other viral communicable diseases; Z79.899 Other long term (current) drug therapy; Z79.4 Long term (current) use of insulin
CPT/HCPCS: 0241U; 36415; 74177; 80053; 82009; 82947; 83690; 84484; 85025; 85610; 85730; 93005; 96365; 96366; 96375; 99284; 99285; Q9967

== ENCOUNTER 2022-11-24 19:13 | Emergency (ER) | payer OTHER, SELFPAY ==
[2022-11-24 19:39] VITALS: BP 149/107; PULSE 101; RESP 18; TEMP 36.7; O2SAT 99; BMI 26.6
--- NOTE | 2022-11-24 19:43 | ED.ABDPAIN ---
HPI - Abdominal Pain General Chief Complaint: General Medical <Anjana Escoto NP - Last Filed: 11/24/22 19:45> Stated Complaint: not feeling well, diabetic <Anjana Escoto NP - Last Filed: 11/24/22 19:45> Time Seen by Provider: 11/24/22 20:57 <Anjana Escoto NP - Last Filed: 11/24/22 19:45> Source: patient <Khoi Macdonald MD - Last Filed: 11/25/22 01:42> Mode of arrival: ambulatory <Khoi Macdonald MD - Last Filed: 11/25/22 01:42> Limitations: no limitations <Khoi Macdonald MD - Last Filed: 11/25/22 01:42> History of Present Illness HPI narrative: Patient diabetic been feeling sick since yesterday with diarrhea about 6-7 times and vomited today about 5-6 times which patient with chills and epigastric history of same in the past no substance abuse current no fever but had chills does not remember eating any seafood or travel. Patient did not take his insulin today blood sugar on arrival was more than 400. <Khoi Macdonald MD - Last Filed: 11/25/22 01:42> Related Data Home Medications: Home Medications Medication Instructions Recorded Confirmed pantoprazole 40 mg tablet,delayed 1 tab PO DAILY@0630 03/15/22 10/31/22 release insulin lispro protamine-lispro 50 unit subcut DAILY 04/30/22 10/31/22 100 unit/mL (75-25) subcutaneous pen coenzyme Q10 200 mg capsule 200 mg PO BID PRN nausea/vomiting 10/31/22 10/31/22 insulin lispro protamine-lispro 60 unit subcut BEDTIME 10/31/22 10/31/22 100 unit/mL (75-25) subcutaneous pen sertraline 25 mg tablet 25 mg PO DAILY PRN anxiety attack 10/31/22 10/31/22 Previous Rx's Medication Instructions Recorded promethazine 25 mg rectal 25 mg MN Q4-6H PRN vomiting #12 ea 10/09/22 suppository <Anjana Escoto NP - Last Filed: 11/24/22 19:45> Allergies/Adverse Reactions: Allergies Allergy/AdvReac Type Severity Reaction Status Date / Time passion fruit [PASSION FRUIT] Allergy Unknown UNK Verified 08/03/22 16:35 <Anjana Escoto NP - Last Filed: 11/24/22 19:45> Review of Systems Review of Systems Yes all other systems are reviewed and are negative <Khoi Macdonald MD - Last Filed: 11/25/22 01:42> [facility] Past Medical History Medical History: Medical History Cyclical vomiting Diabetes Diabetic gastroparesis Diabetic keto-acidosis Esophageal ulcer Gastroparesis Leukocytosis Noncompliance with medication regimen Persistent hyperactive cannabis intoxication delirium <Anjana Escoto NP - Last Filed: 11/24/22 19:45> Surgical History: Surgical History No pertinent past surgical history <Anjana Escoto NP - Last Filed: 11/24/22 19:45> Family History Family History: Family History Other No family history of coronary artery disease <Anjana Escoto NP - Last Filed: 11/24/22 19:45> Social History Social History: Social History Household Members: Significant Other Household Members Other:: 2 Housing: Apartment Do you presently have visiting nurse or other home services: No Alcohol intake: never Patient Tobacco Use Status: Never used Tobacco e-Cigarette/Vaping Use: Former Use Substance Use Type: Marijuana Advance Directives: Yes Advance Directives on File: Yes Advance Directives Date on File: 01/22/21 service: No Current occupational status: employed <Anjana Escoto NP - Last Filed: 11/24/22 19:45> Physical Exam ED Vital Signs: Vital Signs - 24 hr 11/24/22 19:39 11/24/22 21:39 11/24/22 23:24 Temperature 98.0 F 99.1 F 98.7 F Pulse Rate 101 H 89 89 Respiratory Rate 18 18 16 Blood Pressure 149/107 H 144/84 H 147/82 H Pulse Oximetry 99 98 97 Oxygen Delivery Method Room Air Room Air Room Air 11/25/22 00:51 Temperature 98.5 F Pulse Rate 91 Respiratory Rate 18 Blood Pressure 144/86 H Pulse Oximetry 98 Oxygen Delivery Method Room Air BMI result Body Mass Index 26.6 <Anjana Escoto NP - Last Filed: 11/24/22 19:45> Vital Signs - 24 hr 11/24/22 19:39 11/24/22 21:39 11/24/22 23:24 Temperature 98.0 F 99.1 F 98.7 F Pulse Rate 101 H 89 89 Respiratory Rate 18 18 16 Blood Pressure 149/107 H 144/84 H 147/82 H Pulse Oximetry 99 98 97 Oxygen Delivery Method Room Air Room Air Room Air 11/25/22 00:51 Temperature 98.5 F Pulse Rate 91 Respiratory Rate 18 Blood Pressure 144/86 H Pulse Oximetry 98 Oxygen Delivery Method Room Air BMI result Body Mass Index 26.6 <Khoi Macdonald MD - Last Filed: 11/25/22 01:42> Appearance: Alert. Oriented X3. No acute distress. Eyes: PERRLA, No Nystagmus ENT: Pharynx normal. Oral Mucosa moist Neck: Normal inspection. Neck supple. CVS: Normal heart rate and rhythm. Pulses normal. Respiratory: No respiratory distress. Equal air entry bilateral, no wheezing/rales/rhonchi Abdomen: Soft , mild epigastric tenderness Bowel sounds are present, no mass palpable, no CVA tenderness Skin: Skin warm and dry. Normal skin color. Normal skin turgor. Extremities: No lower extremity edema. No calf tenderness Neuro: Oriented X 3. No motor deficit. No sensory deficit.No cerebellar signs , cranial nerves II-XII intact <Khoi Macdonald MD - Last Filed: 11/25/22 01:42> Course Course Course Narrative: This is a rapid medical exam. deferred additional HPI, ROS, PE to primary provider. 27 yo male with history of DM, diabetic gastroporesis here with vomiting, diarrhea, diffuse abdominal pain since last evening. feels that he is dehydrated. WIll obtain POC BS, labs, UA, covid/flu/rsv testing. <Anjana Escoto NP - Last Filed: 11/24/22 19:45> Medical Decision Making Lab Data Result Diagrams: 11/24/22 20:02 11/24/22 20:02 <Anjana Escoto NP - Last Filed: 11/24/22 19:45> Labs: Lab Results 11/24/22 11/24/22 11/24/22 Range/Units 19:52 20:01 20:01 WBC (4.8-10.8) X10*3/uL RBC (4.60-5.80) X10*6/uL Hgb (14.0-18.0) g/dl Hct (42.0-52.0) % MCV (80.0-98.0) fL MCH (27.0-33.0) pg MCHC (31.0-36.0) g/dl RDW (11.0-16.0) % Plt Count (160-400) X10*3/uL MPV (9.4-12.4) fL Immature Gran % (Auto) (0.0-0.4) % Neut % (Auto) (45-73) % Lymph % (Auto) (20-40) % [place] % (Auto) (2-11) % Eos % (Auto) (0-4) % Baso % (Auto) (0-2) % Lymph # (Auto) (1.2-4.9) X10*3/uL [place] # (Auto) (0.1-1.2) X10*3/uL Eos # (Auto) (0.0-0.4) X10*3/uL Baso # (Auto) (0.0-0.2) X10*3/uL Abs Immat Gran (auto) (0.00-0.03) X10*3/uL Absolute Neuts (auto) (2.0-8.3) x10*3/uL Absolute Nucleated RBC (0.0-0.012) X10*3/uL Nucleated RBC % (auto) (0.0-0.2) /100WBC VBG pH (7.32-7.43) VBG pCO2 mmHg VBG pO2 mmHg VBG HCO3 (22-26) mmol/L VBG O2 Saturation % VBG Base Excess mmol/L Sodium (135-145) mmol/L Potassium (3.3-5.1) mmol/L Chloride (96-108) mmol/L Carbon Dioxide (22-29) mmol/L Anion Gap (12-20) BUN (9-16) mg/dL Creatinine (0.5-1.4) mg/dL Estim Creat Clear Calc Estimated GFR POC Glucose 453 H* (60-115) mg/dL Random Glucose (60-115) mg/dL Calcium (8.4-10.2) mg/dL Magnesium (1.6-2.6) mg/dL Total Bilirubin (0.0-1.0) mg/dL Direct Bilirubin (0.0-0.5) mg/dL AST (5-37) U/L ALT (0-40) U/L Alkaline Phosphatase (39-117) U/L Total Protein (6.5-8.0) g/dL Albumin (3.5-5.0) g/dL Lipase (8-78) U/L Urine Color Urine Appearance Urine pH (5.0-9.0) Ur Specific [place] (1.005-1.025) Urine Protein (Neg-Trace) mg/dL Urine Glucose (UA) (Negative) mg/dL Urine Ketones (Negative) mg/dL Urine Blood (Negative) Urine Nitrite (Negative) Ur Leukocyte Esterase (Negative) Urine RBC (0-2) /HPF Urine WBC (0-5) /HPF Ur Squamous Epith Cells (0-2) /HPF Urine Bacteria (None Seen) Hyaline Casts (0-2) /LPF Acetone, Qual Negative (Negative) Influenza Type A (PCR) NEGATIVE (Negative) Influenza Type B (PCR) NEGATIVE (Negative) RSV RNA Qual (PCR) NEGATIVE (Negative) SARS-CoV-2 RNA (RT-PCR) NEGATIVE (Negative) 11/24/22 11/24/22 11/24/22 Range/Units 20:02 20:02 20:06 WBC 10.0 (4.8-10.8) X10*3/uL RBC 5.39 (4.60-5.80) X10*6/uL Hgb 15.3 (14.0-18.0) g/dl Hct 45.6 (42.0-52.0) % MCV 84.6 (80.0-98.0) fL MCH 28.4 (27.0-33.0) pg MCHC 33.6 (31.0-36.0) g/dl RDW 12.2 (11.0-16.0) % Plt Count 291 (160-400) X10*3/uL MPV 10.0 (9.4-12.4) fL Immature Gran % (Auto) 0.2 (0.0-0.4) % Neut % (Auto) 86.1 H (45-73) % Lymph % (Auto) 9.0 L (20-40) % [place] % (Auto) 4.4 (2-11) % Eos % (Auto) 0.1 (0-4) % Baso % (Auto) 0.2 (0-2) % Lymph # (Auto) 0.9 L (1.2-4.9) X10*3/uL [place] # (Auto) 0.4 (0.1-1.2) X10*3/uL Eos # (Auto) 0.0 (0.0-0.4) X10*3/uL Baso # (Auto) 0.0 (0.0-0.2) X10*3/uL Abs Immat Gran (auto) 0.02 (0.00-0.03) X10*3/uL Absolute Neuts (auto) 8.6 H (2.0-8.3) x10*3/uL Absolute Nucleated RBC 0.000 (0.0-0.012) X10*3/uL Nucleated RBC % (auto) 0.0 (0.0-0.2) /100WBC VBG pH 7.41 (7.32-7.43) VBG pCO2 42 mmHg VBG pO2 32 mmHg VBG HCO3 27 H (22-26) mmol/L VBG O2 Saturation 51.0 % VBG Base Excess 2.8 mmol/L Sodium 137 (135-145) mmol/L Potassium 4.9 D (3.3-5.1) mmol/L Chloride 98 (96-108) mmol/L Carbon Dioxide 26 (22-29) mmol/L Anion Gap 18 (12-20) BUN 12 (9-16) mg/dL Creatinine 1.51 H (0.5-1.4) mg/dL Estim Creat Clear Calc 66.8 Estimated GFR 56 POC Glucose (60-115) mg/dL Random Glucose 463 H* (60-115) mg/dL Calcium 10.7 H D (8.4-10.2) mg/dL Magnesium 1.7 (1.6-2.6) mg/dL Total Bilirubin 1.1 H (0.0-1.0) mg/dL Direct Bilirubin 0.3 (0.0-0.5) mg/dL AST 10 (5-37) U/L ALT 12 (0-40) U/L Alkaline Phosphatase 91 (39-117) U/L Total Protein 7.1 (6.5-8.0) g/dL Albumin 4.5 (3.5-5.0) g/dL Lipase 16 (8-78) U/L Urine Color Urine Appearance Urine pH (5.0-9.0) Ur Specific [place] (1.005-1.025) Urine Protein (Neg-Trace) mg/dL Urine Glucose (UA) (Negative) mg/dL Urine Ketones (Negative) mg/dL Urine Blood (Negative) Urine Nitrite (Negative) Ur Leukocyte Esterase (Negative) Urine RBC (0-2) /HPF Urine WBC (0-5) /HPF Ur Squamous Epith Cells (0-2) /HPF Urine Bacteria (None Seen) Hyaline Casts (0-2) /LPF Acetone, Qual (Negative) Influenza Type A (PCR) (Negative) Influenza Type B (PCR) (Negative) RSV RNA Qual (PCR) (Negative) SARS-CoV-2 RNA (RT-PCR) (Negative) 11/24/22 11/24/22 11/25/22 Range/Units 21:53 22:43 00:42 WBC (4.8-10.8) X10*3/uL RBC (4.60-5.80) X10*6/uL Hgb (14.0-18.0) g/dl Hct (42.0-52.0) % MCV (80.0-98.0) fL MCH (27.0-33.0) pg MCHC (31.0-36.0) g/dl RDW (11.0-16.0) % Plt Count (160-400) X10*3/uL MPV (9.4-12.4) fL Immature Gran % (Auto) (0.0-0.4) % Neut % (Auto) (45-73) % Lymph % (Auto) (20-40) % [place] % (Auto) (2-11) % Eos % (Auto) (0-4) % Baso % (Auto) (0-2) % Lymph # (Auto) (1.2-4.9) X10*3/uL [place] # (Auto) (0.1-1.2) X10*3/uL Eos # (Auto) (0.0-0.4) X10*3/uL Baso # (Auto) (0.0-0.2) X10*3/uL Abs Immat Gran (auto) (0.00-0.03) X10*3/uL Absolute Neuts (auto) (2.0-8.3) x10*3/uL Absolute Nucleated RBC (0.0-0.012) X10*3/uL Nucleated RBC % (auto) (0.0-0.2) /100WBC VBG pH (7.32-7.43) VBG pCO2 mmHg VBG pO2 mmHg VBG HCO3 (22-26) mmol/L VBG O2 Saturation % VBG Base Excess mmol/L Sodium (135-145) mmol/L Potassium (3.3-5.1) mmol/L Chloride (96-108) mmol/L Carbon Dioxide (22-29) mmol/L Anion Gap (12-20) BUN (9-16) mg/dL Creatinine (0.5-1.4) mg/dL Estim Creat Clear Calc Estimated GFR POC Glucose 354 H* 226 H (60-115) mg/dL Random Glucose (60-115) mg/dL Calcium (8.4-10.2) mg/dL Magnesium (1.6-2.6) mg/dL Total Bilirubin (0.0-1.0) mg/dL Direct Bilirubin (0.0-0.5) mg/dL AST (5-37) U/L ALT (0-40) U/L Alkaline Phosphatase (39-117) U/L Total Protein (6.5-8.0) g/dL Albumin (3.5-5.0) g/dL Lipase (8-78) U/L Urine Color Yellow Urine Appearance Clear Urine pH 7.5 (5.0-9.0) Ur Specific [place] >= 1.030 H (1.005-1.025) Urine Protein Trace (Neg-Trace) mg/dL Urine Glucose (UA) >=1000 H (Negative) mg/dL Urine Ketones 80 (Negative) mg/dL Urine Blood Negative (Negative) Urine Nitrite Negative (Negative) Ur Leukocyte Esterase Negative (Negative) Urine RBC 0-2 (0-2) /HPF Urine WBC 0-5 (0-5) /HPF Ur Squamous Epith Cells 0-2 (0-2) /HPF Urine Bacteria None Seen (None Seen) Hyaline Casts 0-2 (0-2) /LPF Acetone, Qual (Negative) Influenza Type A (PCR) (Negative) Influenza Type B (PCR) (Negative) RSV RNA Qual (PCR) (Negative) SARS-CoV-2 RNA (RT-PCR) (Negative) <Anjana Escoto [employer]ARN[employer]ER - Last Filed: 11/24/22 19:45> Lab Results 11/24/22 11/24/22 11/24/22 Range/Units 19:52 20:01 20:01 WBC (4.8-10.8) X10*3/uL RBC (4.60-5.80) X10*6/uL Hgb (14.0-18.0) g/dl Hct (42.0-52.0) % MCV (80.0-98.0) fL MCH (27.0-33.0) pg MCHC (31.0-36.0) g/dl RDW (11.0-16.0) % Plt Count (160-400) X10*3/uL MPV (9.4-12.4) fL Immature Gran % (Auto) (0.0-0.4) % Neut % (Auto) (45-73) % Lymph % (Auto) (20-40) % [place] % (Auto) (2-11) % Eos % (Auto) (0-4) % Baso % (Auto) (0-2) % Lymph # (Auto) (1.2-4.9) X10*3/uL [place] # (Auto) (0.1-1.2) X10*3/uL Eos # (Auto) (0.0-0.4) X10*3/uL Baso # (Auto) (0.0-0.2) X10*3/uL Abs Immat Gran (auto) (0.00-0.03) X10*3/uL Absolute Neuts (auto) (2.0-8.3) x10*3/uL Absolute Nucleated RBC (0.0-0.012) X10*3/uL Nucleated RBC % (auto) (0.0-0.2) /100WBC VBG pH (7.32-7.43) VBG pCO2 mmHg VBG pO2 mmHg VBG HCO3 (22-26) mmol/L VBG O2 Saturation % VBG Base Excess mmol/L Sodium (135-145) mmol/L Potassium (3.3-5.1) mmol/L Chloride (96-108) mmol/L Carbon Dioxide (22-29) mmol/L Anion Gap (12-20) BUN (9-16) mg/dL Creatinine (0.5-1.4) mg/dL Estim Creat Clear Calc Estimated GFR POC Glucose 453 H* (60-115) mg/dL Random Glucose (60-115) mg/dL Calcium (8.4-10.2) mg/dL Magnesium (1.6-2.6) mg/dL Total Bilirubin (0.0-1.0) mg/dL Direct Bilirubin (0.0-0.5) mg/dL AST (5-37) U/L ALT (0-40) U/L Alkaline Phosphatase (39-117) U/L Total Protein (6.5-8.0) g/dL Albumin (3.5-5.0) g/dL Lipase (8-78) U/L Urine Color Urine Appearance Urine pH (5.0-9.0) Ur Specific [place] (1.005-1.025) Urine Protein (Neg-Trace) mg/dL Urine Glucose (UA) (Negative) mg/dL Urine Ketones (Negative) mg/dL Urine Blood (Negative) Urine Nitrite (Negative) Ur Leukocyte Esterase (Negative) Urine RBC (0-2) /HPF Urine WBC (0-5) /HPF Ur Squamous Epith Cells (0-2) /HPF Urine Bacteria (None Seen) Hyaline Casts (0-2) /LPF Acetone, Qual Negative (Negative) Influenza Type A (PCR) NEGATIVE (Negative) Influenza Type B (PCR) NEGATIVE (Negative) RSV RNA Qual (PCR) NEGATIVE (Negative) SARS-CoV-2 RNA (RT-PCR) NEGATIVE (Negative) 11/24/22 11/24/22 11/24/22 Range/Units 20:02 20:02 20:06 WBC 10.0 (4.8-10.8) X10*3/uL RBC 5.39 (4.60-5.80) X10*6/uL Hgb 15.3 (14.0-18.0) g/dl Hct 45.6 (42.0-52.0) % MCV 84.6 (80.0-98.0) fL MCH 28.4 (27.0-33.0) pg MCHC 33.6 (31.0-36.0) g/dl RDW 12.2 (11.0-16.0) % Plt Count 291 (160-400) X10*3/uL MPV 10.0 (9.4-12.4) fL Immature Gran % (Auto) 0.2 (0.0-0.4) % Neut % (Auto) 86.1 H (45-73) % Lymph % (Auto) 9.0 L (20-40) % [place] % (Auto) 4.4 (2-11) % Eos % (Auto) 0.1 (0-4) % Baso % (Auto) 0.2 (0-2) % Lymph # (Auto) 0.9 L (1.2-4.9) X10*3/uL [place] # (Auto) 0.4 (0.1-1.2) X10*3/uL Eos # (Auto) 0.0 (0.0-0.4) X10*3/uL Baso # (Auto) 0.0 (0.0-0.2) X10*3/uL Abs Immat Gran (auto) 0.02 (0.00-0.03) X10*3/uL Absolute Neuts (auto) 8.6 H (2.0-8.3) x10*3/uL Absolute Nucleated RBC 0.000 (0.0-0.012) X10*3/uL Nucleated RBC % (auto) 0.0 (0.0-0.2) /100WBC VBG pH 7.41 (7.32-7.43) VBG pCO2 42 mmHg VBG pO2 32 mmHg VBG HCO3 27 H (22-26) mmol/L VBG O2 Saturation 51.0 % VBG Base Excess 2.8 mmol/L Sodium 137 (135-145) mmol/L Potassium 4.9 D (3.3-5.1) mmol/L Chloride 98 (96-108) mmol/L Carbon Dioxide 26 (22-29) mmol/L Anion Gap 18 (12-20) BUN 12 (9-16) mg/dL Creatinine 1.51 H (0.5-1.4) mg/dL Estim Creat Clear Calc 66.8 Estimated GFR 56 POC Glucose (60-115) mg/dL Random Glucose 463 H* (60-115) mg/dL Calcium 10.7 H D (8.4-10.2) mg/dL Magnesium 1.7 (1.6-2.6) mg/dL Total Bilirubin 1.1 H (0.0-1.0) mg/dL Direct Bilirubin 0.3 (0.0-0.5) mg/dL AST 10 (5-37) U/L ALT 12 (0-40) U/L Alkaline Phosphatase 91 (39-117) U/L Total Protein 7.1 (6.5-8.0) g/dL Albumin 4.5 (3.5-5.0) g/dL Lipase 16 (8-78) U/L Urine Color Urine Appearance Urine pH (5.0-9.0) Ur Specific [place] (1.005-1.025) Urine Protein (Neg-Trace) mg/dL Urine Glucose (UA) (Negative) mg/dL Urine Ketones (Negative) mg/dL Urine Blood (Negative) Urine Nitrite (Negative) Ur Leukocyte Esterase (Negative) Urine RBC (0-2) /HPF Urine WBC (0-5) /HPF Ur Squamous Epith Cells (0-2) /HPF Urine Bacteria (None Seen) Hyaline Casts (0-2) /LPF Acetone, Qual (Negative) Influenza Type A (PCR) (Negative) Influenza Type B (PCR) (Negative) RSV RNA Qual (PCR) (Negative) SARS-CoV-2 RNA (RT-PCR) (Negative) 11/24/22 11/24/22 11/25/22 Range/Units 21:53 22:43 00:42 WBC (4.8-10.8) X10*3/uL RBC (4.60-5.80) X10*6/uL Hgb (14.0-18.0) g/dl Hct (42.0-52.0) % MCV (80.0-98.0) fL MCH (27.0-33.0) pg MCHC (31.0-36.0) g/dl RDW (11.0-16.0) % Plt Count (160-400) X10*3/uL MPV (9.4-12.4) fL Immature Gran % (Auto) (0.0-0.4) % Neut % (Auto) (45-73) % Lymph % (Auto) (20-40) % [place] % (Auto) (2-11) % Eos % (Auto) (0-4) % Baso % (Auto) (0-2) % Lymph # (Auto) (1.2-4.9) X10*3/uL [place] # (Auto) (0.1-1.2) X10*3/uL Eos # (Auto) (0.0-0.4) X10*3/uL Baso # (Auto) (0.0-0.2) X10*3/uL Abs Immat Gran (auto) (0.00-0.03) X10*3/uL Absolute Neuts (auto) (2.0-8.3) x10*3/uL Absolute Nucleated RBC (0.0-0.012) X10*3/uL Nucleated RBC % (auto) (0.0-0.2) /100WBC VBG pH (7.32-7.43) VBG pCO2 mmHg VBG pO2 mmHg VBG HCO3 (22-26) mmol/L VBG O2 Saturation % VBG Base Excess mmol/L Sodium (135-145) mmol/L Potassium (3.3-5.1) mmol/L Chloride (96-108) mmol/L Carbon Dioxide (22-29) mmol/L Anion Gap (12-20) BUN (9-16) mg/dL Creatinine (0.5-1.4) mg/dL Estim Creat Clear Calc Estimated GFR POC Glucose 354 H* 226 H (60-115) mg/dL Random Glucose (60-115) mg/dL Calcium (8.4-10.2) mg/dL Magnesium (1.6-2.6) mg/dL Total Bilirubin (0.0-1.0) mg/dL Direct Bilirubin (0.0-0.5) mg/dL AST (5-37) U/L ALT (0-40) U/L Alkaline Phosphatase (39-117) U/L Total Protein (6.5-8.0) g/dL Albumin (3.5-5.0) g/dL Lipase (8-78) U/L Urine Color Yellow Urine Appearance Clear Urine pH 7.5 (5.0-9.0) Ur Specific [place] >= 1.030 H (1.005-1.025) Urine Protein Trace (Neg-Trace) mg/dL Urine Glucose (UA) >=1000 H (Negative) mg/dL Urine Ketones 80 (Negative) mg/dL Urine Blood Negative (Negative) Urine Nitrite Negative (Negative) Ur Leukocyte Esterase Negative (Negative) Urine RBC 0-2 (0-2) /HPF Urine WBC 0-5 (0-5) /HPF Ur Squamous Epith Cells 0-2 (0-2) /HPF Urine Bacteria None Seen (None Seen) Hyaline Casts 0-2 (0-2) /LPF Acetone, Qual (Negative) Influenza Type A (PCR) (Negative) Influenza Type B (PCR) (Negative) RSV RNA Qual (PCR) (Negative) SARS-CoV-2 RNA (RT-PCR) (Negative) <Khoi Macdonald MD - Last Filed: 11/25/22 01:42> Medications Administered Generic Name Dose Route Start Last Admin Trade Name Freq PRN Reason Stop Dose Admin Sodium Chloride 1,000 mls @ 999 mls/hr 11/25/22 00:55 11/25/22 01:30 Ns IV 11/25/22 01:55 999 mls/hr .Q1H1M ONE Administration Discontinued Medications Generic Name Dose Route Start Last Admin Trade Name Freq PRN Reason Stop Dose Admin Sodium Chloride 1,000 mls @ 999 mls/hr 11/24/22 20:57 11/24/22 22:53 Ns IV 11/24/22 21:57 Infused .Q1H1M ONE Infusion Insulin Human Lispro 14 unit 11/24/22 20:57 11/24/22 21:45 Insulin Lispro 100 Unit/Ml 3 Ml Vial SUBCUT 11/24/22 20:58 14 unit ONCE ONE Administration Morphine Sulfate 4 mg 11/24/22 22:43 11/24/22 22:53 Morphine Sulfate 4 Mg/Ml Cartridge IVPUSH 11/24/22 22:44 4 mg ONCE ONE Administration Protocol Ondansetron HCl 4 mg 11/24/22 22:43 11/24/22 22:51 Ondansetron Hcl 4 Mg/2 Ml Vial IVPUSH 11/24/22 22:44 4 mg ONCE ONE Administration Prochlorperazine Edisylate 10 mg 11/25/22 00:55 11/25/22 01:29 Prochlorperazine Edisylate 10 Mg/2 Ml Vial IVPUSH 11/25/22 00:56 10 mg ONCE ONE Administration <Anjana Escoto [employer]ER - Last Filed: 11/24/22 19:45> Medications Administered Generic Name Dose Route Start Last Admin Trade Name Freq PRN Reason Stop Dose Admin Sodium Chloride 1,000 mls @ 999 mls/hr 11/25/22 00:55 11/25/22 01:30 Ns IV 11/25/22 01:55 999 mls/hr .Q1H1M ONE Administration Discontinued Medications Generic Name Dose Route Start Last Admin Trade Name Freq PRN Reason Stop Dose Admin Sodium Chloride 1,000 mls @ 999 mls/hr 11/24/22 20:57 11/24/22 22:53 Ns IV 11/24/22 21:57 Infused .Q1H1M ONE Infusion Insulin Human Lispro 14 unit 11/24/22 20:57 11/24/22 21:45 Insulin Lispro 100 Unit/Ml 3 Ml Vial SUBCUT 11/24/22 20:58 14 unit ONCE ONE Administration Morphine Sulfate 4 mg 11/24/22 22:43 11/24/22 22:53 Morphine Sulfate 4 Mg/Ml Cartridge IVPUSH 11/24/22 22:44 4 mg ONCE ONE Administration Protocol Ondansetron HCl 4 mg 11/24/22 22:43 11/24/22 22:51 Ondansetron Hcl 4 Mg/2 Ml Vial IVPUSH 11/24/22 22:44 4 mg ONCE ONE Administration Prochlorperazine Edisylate 10 mg 11/25/22 00:55 11/25/22 01:29 Prochlorperazine Edisylate 10 Mg/2 Ml Vial IVPUSH 11/25/22 00:56 10 mg ONCE ONE Administration <Khoi Macdonald MD - Last Filed: 11/25/22 01:42> Discharge Plan Discharge Clinical Impression: Acute nausea with nonbilious vomiting, Diabetes mellitus with hyperglycemia <Anjana Escoto NP - Last Filed: 11/24/22 19:45> Patient Disposition: Home, Self-Care <Anjana Escoto NP - Last Filed: 11/24/22 19:45> Instructions: Acute Nausea and Vomiting (ED), Diabetic Hyperglycemia (ED) <Anjana Escoto NP - Last Filed: 11/24/22 19:45> Additional Instructions: Drink plenty of fluids Take your Zofran and Reglan as needed for nausea/vomiting Take your insulin on time <Anjana Escoto NP - Last Filed: 11/24/22 19:45> Prescriptions: No Action pantoprazole 40 mg tablet,delayed release (DR/EC) 1 tab PO DAILY@0630 insulin lispro protamin-lispro 100 unit/mL (75-25) insulin pen 50 unit subcut DAILY Rx Instructions: before meals promethazine 25 mg suppository 25 mg MN Q4-6H PRN (Reason: vomiting) Qty: 12 0RF sertraline 25 mg tablet 25 mg PO DAILY PRN (Reason: anxiety attack) insulin lispro protamin-lispro 100 unit/mL (75-25) insulin pen 60 unit subcut BEDTIME Rx Instructions: before meals coenzyme Q10 200 mg capsule 200 mg PO BID PRN (Reason: nausea/vomiting) <Anjana Escoto NP - Last Filed: 11/24/22 19:45>
[2022-11-24 20:08] LABS: Glucose, Whole Blood 453 mg/dL (60-115)
[2022-11-24 20:09] LABS: MANUAL DIFF FLAG NO
[2022-11-24 20:10] LABS: Basophils Percent Auto 0.2 % (0-2); Eosinophils Percent Auto 0.1 % (0-4); Hematocrit 45.6 % (42.0-52.0); Hemoglobin 15.3 g/dl (14.0-18.0); Imm Gran Abs Auto 0.02 X10*3/uL (0.00-0.03); Imm Gran Pct Auto 0.2 % (0.0-0.4); Lymphocytes Absolute Auto 0.9 X10*3/uL (1.2-4.9); Mean Corpuscular HGB Conc 33.6 g/dl (31.0-36.0); Mean Corpuscular Hemoglobin 28.4 pg (27.0-33.0); Mean Corpuscular Volume 84.6 fL (80.0-98.0); Monocytes Absolute Auto 0.4 X10*3/uL (0.1-1.2); Monocytes Percent Auto 4.4 % (2-11); Neutrophils Absolute Auto 8.6 x10*3/uL (2.0-8.3); Neutrophils Percent Auto 86.1 % (45-73); Platelet Count 291 X10*3/uL (160-400); Red Blood Count 5.39 X10*6/uL (4.60-5.80); Red Cell Distribution Width 12.2 % (11.0-16.0)
[2022-11-24 20:12] LABS: VBG Base Excess 2.8 mmol/L; VBG HCO3 27 mmol/L (22-26); VBG pCO2 42 mmHg; VBG pH 7.41 (7.32-7.43); VBG pO2 32 mmHg
[2022-11-24 20:14] LABS: Venous Blood Gas Refer to POC result
[2022-11-24 20:33] LABS: Alanine Aminotransferase 12 U/L (0-40); Albumin Level 4.5 g/dL (3.5-5.0); Alkaline Phosphatase 91 U/L (39-117); Anion Gap 18 (12-20); Aspartate Amino Transferase 10 U/L (5-37); Bilirubin Direct 0.3 mg/dL (0.0-0.5); Bilirubin Total 1.1 mg/dL (0.0-1.0); Blood Urea Nitrogen 12 mg/dL (9-16); Calcium 10.7 mg/dL (8.4-10.2); Carbon Dioxide 26 mmol/L (22-29); Chloride 98 mmol/L (96-108); Creatinine Clr Calc Pharmacy 66.8; Estimated Glomerular Filt Rate 56; Glucose Random 463 mg/dL (60-115); Lipase 16 U/L (8-78); Magnesium 1.7 mg/dL (1.6-2.6); Potassium 4.9 mmol/L (3.3-5.1); Sodium 137 mmol/L (135-145); Total Protein 7.1 g/dL (6.5-8.0)
[2022-11-24 20:48] LABS: Influenza A PCR NEGATIVE (Negative); Influenza B PCR NEGATIVE (Negative); Resp Syncy Virus RNA Qual PCR NEGATIVE (Negative); SARS COV2 PCR INHOUSE NEGATIVE (Negative)
[2022-11-24 20:53] LABS: Acetone, serum QL Negative (Negative)
[2022-11-24 21:39] VITALS: BP 144/84; PULSE 89; RESP 18; TEMP 37.3; O2SAT 98
--- NOTE | 2022-11-24 21:40 | MHC.EDTECH ---
Patient vomited 100cc,Vitals obtained,RN is aware
[2022-11-24] MEDS: 0.9 % Sodium Chloride 1,000 ML 999 ML IV (21:45)
[2022-11-24] MEDS: Insulin Lispro 100 UNIT/ML 3 ML VIAL 14 UNIT SUBCUT (21:45)
[2022-11-24 22:01] LABS: Appearance Urine Clear; Color Urine Yellow; Glucose Urine UA >=1000 mg/dL (Negative); Leukocyte Esterase Urine Negative (Negative); Nitrite Urine Negative (Negative); PH 7.5 (5.0-9.0); Specific Gravity - Urine >= 1.030 (1.005-1.025); UMIC TRIGGER UACC YES; Urine Blood Negative (Negative); Urine Ketones 80 mg/dL (Negative); Urine Protein Trace mg/dL (Neg-Trace)
[2022-11-24 22:14] LABS: Bacteria Urine None Seen (None Seen); Hyaline Casts Urine 0-2 /LPF (0-2); RBC Urine 0-2 /HPF (0-2); Squamous Epithelial Cell Urine 0-2 /HPF (0-2); WBC Urine 0-5 /HPF (0-5)
--- NOTE | 2022-11-24 22:44 | MHC.EDTECH ---
This tech obtained a blood sugar,Patient is stating he is in pain,RN was made aware. Call wyatt within reach
[2022-11-24] MEDS: ondansetron HCL 4 MG/2 ML VIAL IVPUSH (22:51)
[2022-11-24] MEDS: Morphine Sulfate 4 MG/ML CARTRIDGE IVPUSH (22:53)
[2022-11-24 23:24] VITALS: BP 147/82; PULSE 89; RESP 16; TEMP 37.1; O2SAT 97
--- NOTE | 2022-11-24 23:25 | MHC.EDTECH ---
Vitals obtained,Patient requested liquids,This tech checked with RN ,ICE chips only at this time.
[2022-11-24 23:26] LABS: Glucose, Whole Blood 354 mg/dL (60-115)
[2022-11-25 00:47] LABS: Glucose, Whole Blood 226 mg/dL (60-115)
--- NOTE | 2022-11-25 00:48 | MHC.EDTECH ---
Vitals obtained,Patient is being po challenged given a can of diet ginerale with saltines. Patient tolerated well.RN and made aware
--- NOTE | 2022-11-25 00:50 | MHC.EDTECH ---
ALIZA pineda at 0045 pt tolerated it well. patient asking for apple Juice ,Diet gingerale was given
[2022-11-25 00:51] VITALS: BP 144/86; PULSE 91; RESP 18; TEMP 36.9; O2SAT 98
[2022-11-25] MEDS: Prochlorperazine Edisylate 10 MG/2 ML VIAL IVPUSH (01:29)
[2022-11-25] MEDS: 0.9 % Sodium Chloride 1,000 ML 999 ML IV (01:30)
--- NOTE | 2022-11-25 01:31 | PC.NURSE ---
Pt does not want lantus at this time. States when he takes it at home his blood sugar has been reading LO in the mornings. Will notify provider.
--- NOTE | 2022-11-25 01:54 | MHC.EDTECH ---
Vitals are obtained patient requested gingerale and ice chips. Patient is tolerating liquids well,Patient is resting comfortable at this time.
[2022-11-25 02:46] VITALS: BP 101/57; PULSE 97; RESP 18; TEMP 37; O2SAT 98
== END 2022-11-25 02:50 | disposition home or self-care (01) ==
PROVIDERS: Nurse Practitioner Family; Emergency Provider Internal Medicine
DX: E11.65 Type 2 diabetes mellitus with hyperglycemia (principal); R11.2 Nausea with vomiting, unspecified; Z20.822 Contact with and (suspected) exposure to COVID-19; Z20.828 Contact with and (suspected) exposure to other viral communicable diseases; Z79.899 Other long term (current) drug therapy; Z87.891 Personal history of nicotine dependence; Z79.4 Long term (current) use of insulin
CPT/HCPCS: 0241U; 36415; 80048; 80076; 81001; 81003; 82009; 82803; 82947; 83690; 83735; 85025; 96361; 96374; 96375; 99284; J2270; J2405

== ENCOUNTER 2022-11-26 22:44 | Emergency (ER) | payer OTHER, SELFPAY ==
[2022-11-26 23:09] VITALS: BP 150/100; PULSE 102; RESP 16; TEMP 37.1; O2SAT 99; BMI 26.6
--- NOTE | 2022-11-27 00:41 | ED.NAVMDI ---
HPI - Nausea/Vomiting/Diarrhea General Chief complaint: Nausea/Vomiting/Diarrhea Stated complaint: [id number] bug, dehydration, vomit Time Seen by Provider: 11/27/22 00:24 Source: patient Mode of arrival: ambulatory Limitations: no limitations History of Present Illness HPI Narrative: 07:00 hours: I received sign-out from Dr. Jerez patient was initially seen by Dr Marilu Mclean. I was unable to find his note, therefore I reassessed the patient, examine the patient and started a new note. 27-year-old male with a history of cyclic vomiting syndrome, diabetes mellitus who presents emergency department for evaluation of 3 days of epigastric abdominal pain, nausea, vomiting, fatigue, weakness, lightheadedness and dizziness. The patient states that he was recently tested for gastroparesis was told that this was not the reason for his cyclic vomiting. The patient does smoke marijuana daily. He states he stop smoking marijuana for approximately 16 days but did smoke again 3 days prior. Patient was initially seen by Dr. Marilu Mclean and the patient was treated with normal saline x1 L, Ativan 2 mg IV, Zofran 4 mg IV. Patient initially felt better however his pain and nausea returned and he was ordered to get morphine 4 mg IV, Reglan 10 mg IV and Benadryl 50 mg IV. I also ordered a 2 L of normal saline IV. Related Data Home Medications Medication Instructions Recorded Confirmed pantoprazole 40 mg tablet,delayed 1 tab PO DAILY@0630 03/15/22 10/31/22 release insulin lispro protamine-lispro 50 unit subcut DAILY 04/30/22 10/31/22 100 unit/mL (75-25) subcutaneous pen coenzyme Q10 200 mg capsule 200 mg PO BID PRN nausea/vomiting 10/31/22 10/31/22 insulin lispro protamine-lispro 60 unit subcut BEDTIME 10/31/22 10/31/22 100 unit/mL (75-25) subcutaneous pen sertraline 25 mg tablet 25 mg PO DAILY PRN anxiety attack 10/31/22 10/31/22 Previous Rx's Medication Instructions Recorded promethazine 25 mg rectal 25 mg IN Q4-6H PRN vomiting #12 ea 10/09/22 suppository promethazine 25 mg rectal 25 mg IN Q6H PRN nausea and 11/27/22 suppository (Promethegan) vomiting #20 ea Allergies Allergy/AdvReac Type Severity Reaction Status Date / Time passion fruit [PASSION FRUIT] Allergy Unknown UNK Verified 11/26/22 23:14 Review of Systems Review of Systems: Yes all other systems are reviewed and are negative [facility] Past Medical History Medical History Cyclical vomiting Diabetes Diabetic gastroparesis Diabetic keto-acidosis Esophageal ulcer Gastroparesis Leukocytosis Noncompliance with medication regimen Persistent hyperactive cannabis intoxication delirium Surgical History No pertinent past surgical history Family History Family History Other No family history of coronary artery disease Social History Social History Household Members: Significant Other Household Members Other:: 2 Housing: Apartment Do you presently have visiting nurse or other home services: No Alcohol intake: never Patient Tobacco Use Status: Never used Tobacco Smoked in Last 30 Days: No e-Cigarette/Vaping Use: Former Use Use of substances other than those prescribed or required for medical reasons: Yes Substance Use Type: Marijuana Advance Directives: Yes Advance Directives on File: Yes Advance Directives Date on File: 01/22/21 service: No Current occupational status: employed Physical Exam Vital Signs: Vital Signs: Last Vital Signs Temp 98.7 F 11/26/22 23:09 Pulse 82 11/27/22 06:00 Resp 16 11/27/22 06:00 BP 131/80 11/27/22 06:00 Pulse Ox 99 11/27/22 06:00 O2 Del Method Room Air 11/27/22 06:00 BMI result Body Mass Index 26.6 Const: General: cooperative and no acute distress Orientation/consciousness: oriented to person and oriented to place Limitations: no limitations HEENT: Head: Yes normal to inspection, Yes normocephalic and Yes atraumatic Ears: external ears normal General nose exam: Normal external nose present Face and sinus: Yes normal facial exam Mouth: Normal oral and palatal mucosa present Throat: Yes posterior oropharynx normal Eyes: General: appearance normal, both eyes and all related structures Pupils: Equal, round and reactive pupils present Neck: Neck: Yes normal visual inspection, Yes no lymphadenopathy, Yes trachea midline and Yes supple Chest: Chest palpation & inspection: normal inspection of the chest and normal palpation of entire chest wall Resp: Effort & Inspection: normal respiratory effort and able to speak in complete sentences Auscultation: clear to auscultation bilaterally Cardio: Rate: regular rate Rhythm: regular rhythm Heart sounds: S1 normal heart sound present, S2 normal heart sound present and no murmurs GI: Inspection: Yes normal to inspection Palpation (GI): Soft to palpation, Tenderness to palpation present (GI) (Moderate epigastric tenderness) and no guarding Auscultation: normal bowel sounds : General: Yes no CVA tenderness Back/Spine/Pelvis: Back: no CVA tenderness Skin: General skin exam: no rashes or lesions noted Neuro: General: oriented to person and oriented to place Cranial nerves: Yes CN's II-XII intact bilaterally and Yes Equal, round and reactive pupils present Cognition (Neuro): normal cognition Motor exam (neuro): 5/5 motor strength present throughout Extrem: General: Yes normal to inspection Psych: Appearance: grossly normal Speech and movement: Normal speech and movement present Affect: normal affect Attitude: cooperative Thought process: Normal thought process present Thought content: Normal thought content present Medications Administered Generic Name Dose Route Start Last Admin Trade Name Freq PRN Reason Stop Dose Admin Sodium Chloride 1,000 mls @ 999 mls/hr 11/27/22 06:54 11/27/22 07:17 Ns IV 11/27/22 07:54 999 mls/hr .Q1H1M STA Administration Discontinued Medications Generic Name Dose Route Start Last Admin Trade Name Freq PRN Reason Stop Dose Admin Diphenhydramine HCl 50 mg 11/27/22 06:54 11/27/22 07:17 Diphenhydramine Hcl 50 Mg/Ml Vial IVPUSH 11/27/22 06:55 50 mg ONCE STA Administration Sodium Chloride 1,000 mls @ 999 mls/hr 11/27/22 00:42 11/27/22 02:30 Ns IV 11/27/22 01:42 Infused .Q1H1M ONE Infusion Lorazepam 2 mg 11/27/22 00:42 11/27/22 01:24 Lorazepam 2 Mg/Ml Vial IVPUSH 11/27/22 00:43 2 mg ONCE ONE Administration Metoclopramide HCl 10 mg 11/27/22 06:54 11/27/22 07:17 Metoclopramide Hcl 10 Mg/2 Ml Vial IVPUSH 11/27/22 06:55 10 mg ONCE STA Administration Morphine Sulfate 4 mg 11/27/22 00:42 11/27/22 01:17 Morphine Sulfate 4 Mg/Ml Cartridge IVPUSH 11/27/22 00:43 4 mg ONCE ONE Administration Protocol Morphine Sulfate 4 mg 11/27/22 06:54 11/27/22 07:17 Morphine Sulfate 4 Mg/Ml Cartridge IVPUSH 11/27/22 06:55 4 mg ONCE STA Administration Protocol Ondansetron HCl 4 mg 11/27/22 00:42 11/27/22 01:16 Ondansetron Hcl 4 Mg/2 Ml Vial IVPUSH 11/27/22 00:43 4 mg ONCE ONE Administration Medical Decision Making Medical Decision Making [facility] Narrative: 27-year-old male with a history of diabetes mellitus and cyclic vomiting syndrome who presents emergency department for evaluation of 3 days of epigastric pain, nausea, vomiting, diarrhea, weakness, myalgias and arthralgias. The patient has had multiple similar presentations to the emergency department. Patient does smoke marijuana and he has been diagnosed with cyclic vomiting syndrome in the past. He states he was recently evaluated for gastroparesis and was told that this is not the cause of his symptoms. Patient did have epigastric tenderness. 0741: My interpretation patient's laboratory evaluation as follows: CBC was normal. CMP was normal except for an elevated glucose of 222. LFTs and lipase were normal. Patient's presentation is consistent with his cyclic vomiting syndrome. After my evaluation the patient was ordered to get more treatment. Patient was given Reglan 10 mg IV, Benadryl 50 mg IV and morphine 4 mg IV. I also ordered a 2 L of normal saline IV. Differential Diagnosis Differential diagnosis includes but is not limited to cyclic vomiting syndrome, cannabis/marijuana hyperemesis syndrome, gastroenteritis, viral syndrome, Lab Data [facility] Lab Attestation statement: I reviewed the patient's lab results. See [facility] 11/27/22 01:15 11/27/22 01:15 Labs: Lab Results 11/27/22 11/27/22 11/27/22 Range/Units 01:15 01:15 01:30 WBC 10.3 (4.8-10.8) X10*3/uL RBC 5.18 (4.60-5.80) X10*6/uL Hgb 14.9 (14.0-18.0) g/dl Hct 42.3 (42.0-52.0) % MCV 81.7 (80.0-98.0) fL MCH 28.8 (27.0-33.0) pg MCHC 35.2 (31.0-36.0) g/dl RDW 12.0 (11.0-16.0) % Plt Count 302 (160-400) X10*3/uL MPV 9.5 (9.4-12.4) fL Immature Gran % (Auto) 0.4 (0.0-0.4) % Neut % (Auto) 70.3 (45-73) % Lymph % (Auto) 18.2 L (20-40) % [place] % (Auto) 10.9 (2-11) % Eos % (Auto) 0.1 (0-4) % Baso % (Auto) 0.1 (0-2) % Lymph # (Auto) 1.9 (1.2-4.9) X10*3/uL [place] # (Auto) 1.1 (0.1-1.2) X10*3/uL Eos # (Auto) 0.0 (0.0-0.4) X10*3/uL Baso # (Auto) 0.0 (0.0-0.2) X10*3/uL Abs Immat Gran (auto) 0.04 H (0.00-0.03) X10*3/uL Absolute Neuts (auto) 7.3 (2.0-8.3) x10*3/uL Absolute Nucleated RBC 0.000 (0.0-0.012) X10*3/uL Nucleated RBC % (auto) 0.0 (0.0-0.2) /100WBC Sodium 136 (135-145) mmol/L Potassium 3.5 D (3.3-5.1) mmol/L Chloride 98 (96-108) mmol/L Carbon Dioxide 29 (22-29) mmol/L Anion Gap 13 (12-20) BUN 10 (9-16) mg/dL Creatinine 1.13 (0.5-1.4) mg/dL Estim Creat Clear Calc 89.3 Estimated GFR > 60 POC Glucose 199 H (60-115) mg/dL Random Glucose 222 H (60-115) mg/dL Calcium 9.8 D (8.4-10.2) mg/dL Total Bilirubin 0.6 (0.0-1.0) mg/dL AST 12 (5-37) U/L ALT 11 (0-40) U/L Alkaline Phosphatase 81 (39-117) U/L Total Protein 6.9 (6.5-8.0) g/dL Albumin 4.4 (3.5-5.0) g/dL Lipase 12 (8-78) U/L Discharge Plan Discharge Clinical Impression: Cyclic vomiting syndrome, Cannabis use disorder, Abdominal pain, epigastric, Acute dehydration Patient Disposition: Home, Self-Care Instructions: Cannabis Abuse (ED), Cyclic Vomiting Syndrome (ED) Additional Instructions: Your blood work was unremarkable except for a high glucose of 222. Your symptoms are consistent with cyclic vomiting syndrome. Sometimes this can be triggered by marijuana use. You need to stop smoking marijuana for at least 6 months for the symptoms to improve. Take Phenergan Prescriptions: New promethazine [Promethegan] 25 mg suppository 25 mg IN Q6H PRN (Reason: nausea and vomiting) Qty: 20 0RF No Action pantoprazole 40 mg tablet,delayed release (DR/EC) 1 tab PO DAILY@0630 insulin lispro protamin-lispro 100 unit/mL (75-25) insulin pen 50 unit subcut DAILY Rx Instructions: before meals promethazine 25 mg suppository 25 mg IN Q4-6H PRN (Reason: vomiting) Qty: 12 0RF sertraline 25 mg tablet 25 mg PO DAILY PRN (Reason: anxiety attack) insulin lispro protamin-lispro 100 unit/mL (75-25) insulin pen 60 unit subcut BEDTIME Rx Instructions: before meals coenzyme Q10 200 mg capsule 200 mg PO BID PRN (Reason: nausea/vomiting)
[2022-11-27] MEDS: ondansetron HCL 4 MG/2 ML VIAL IVPUSH (01:16)
[2022-11-27 01:17] VITALS: RESP 16
[2022-11-27] MEDS: Morphine Sulfate 4 MG/ML CARTRIDGE IVPUSH ×3 (01:17→09:13)
[2022-11-27 01:19] LABS: MANUAL DIFF FLAG NO
[2022-11-27 01:21] LABS: Basophils Percent Auto 0.1 % (0-2); Eosinophils Percent Auto 0.1 % (0-4); Hematocrit 42.3 % (42.0-52.0); Hemoglobin 14.9 g/dl (14.0-18.0); Imm Gran Abs Auto 0.04 X10*3/uL (0.00-0.03); Imm Gran Pct Auto 0.4 % (0.0-0.4); Lymphocytes Absolute Auto 1.9 X10*3/uL (1.2-4.9); Lymphocytes Percent Auto 18.2 % (20-40); Mean Corpuscular HGB Conc 35.2 g/dl (31.0-36.0); Mean Corpuscular Hemoglobin 28.8 pg (27.0-33.0); Mean Corpuscular Volume 81.7 fL (80.0-98.0); Mean Platelet Volume 9.5 fL (9.4-12.4); Monocytes Absolute Auto 1.1 X10*3/uL (0.1-1.2); Monocytes Percent Auto 10.9 % (2-11); Neutrophils Absolute Auto 7.3 x10*3/uL (2.0-8.3); Neutrophils Percent Auto 70.3 % (45-73); Platelet Count 302 X10*3/uL (160-400); Red Blood Count 5.18 X10*6/uL (4.60-5.80); White Blood Count 10.3 X10*3/uL (4.8-10.8)
[2022-11-27] MEDS: LORazepam 2 MG/ML VIAL IVPUSH (01:24)
[2022-11-27] MEDS: 0.9 % Sodium Chloride 1,000 ML 999 ML IV ×2 (01:27→07:17)
[2022-11-27 01:30] VITALS: BP 145/84; PULSE 90; RESP 16; O2SAT 96
[2022-11-27 01:34] LABS: Glucose, Whole Blood 199 mg/dL (60-115)
[2022-11-27 01:37] LABS: Alanine Aminotransferase 11 U/L (0-40); Albumin Level 4.4 g/dL (3.5-5.0); Alkaline Phosphatase 81 U/L (39-117); Anion Gap 13 (12-20); Aspartate Amino Transferase 12 U/L (5-37); Bilirubin Total 0.6 mg/dL (0.0-1.0); Blood Urea Nitrogen 10 mg/dL (9-16); Calcium 9.8 mg/dL (8.4-10.2); Carbon Dioxide 29 mmol/L (22-29); Chloride 98 mmol/L (96-108); Creatinine Clr Calc Pharmacy 89.3; Estimated Glomerular Filt Rate > 60; Glucose Random 222 mg/dL (60-115); Lipase 12 U/L (8-78); Potassium 3.5 mmol/L (3.3-5.1); Sodium 136 mmol/L (135-145); Total Protein 6.9 g/dL (6.5-8.0)
--- NOTE | 2022-11-27 01:45 | PC.NURSE ---
Pt A&Ox4, reports constant all over ABD x 1 day, states it feels sharp and stabbing , reports N/V/D. IV line started, blood work collected and sent to lab. Meds given as documented. ABD non tender to touch, + bowel sounds x 4 quadrants.
--- NOTE | 2022-11-27 05:08 | PC.NURSE ---
Pt appears to be sleeping, easily awakens with verbal stimuli, reports effectiveness to meds given.
[2022-11-27 06:00] VITALS: BP 131/80; PULSE 82; RESP 16; O2SAT 99
[2022-11-27] MEDS: Metoclopramide HCl 10 MG/2 ML VIAL IVPUSH (07:17)
[2022-11-27] MEDS: diphenhydrAMINE HCL 50 MG/ML VIAL IVPUSH (07:17)
--- NOTE | 2022-11-27 07:33 | PC.NURSE ---
Alert and oriented, resp even and unlabored. Fluids infusing, medicated per the MAR. Pt resting comfortably in bed with call wyatt in reach.
[2022-11-27 07:50] LABS: Appearance Urine Clear; Color Urine Yellow; Glucose Urine UA >=1000 mg/dL (Negative); Leukocyte Esterase Urine Negative (Negative); Nitrite Urine Negative (Negative); Specific Gravity - Urine 1.015 (1.005-1.025); UMIC TRIGGER UACC YES; Urine Blood Negative (Negative); Urine Ketones Trace mg/dL (Negative); Urine Protein Trace mg/dL (Neg-Trace)
[2022-11-27 07:55] LABS: Bacteria Urine None Seen (None Seen); Hyaline Casts Urine 0-2 /LPF (0-2); RBC Urine 0-2 /HPF (0-2); Squamous Epithelial Cell Urine 0-2 /HPF (0-2); WBC Urine 0-5 /HPF (0-5)
== END 2022-11-27 09:19 | disposition home or self-care (01) ==
PROVIDERS: Internal Medicine; Emergency Provider Emergency Medicine Emergency Medical Services; PCP Internal Medicine
DX: R11.15 Cyclical vomiting syndrome unrelated to migraine (principal); F12.988 Cannabis use, unspecified with other cannabis-induced disorder; E86.0 Dehydration; R10.13 Epigastric pain; E11.9 Type 2 diabetes mellitus without complications; Z79.4 Long term (current) use of insulin; Z79.899 Other long term (current) drug therapy
CPT/HCPCS: 36415; 80053; 81001; 82947; 83690; 85025; 96361; 96374; 96375; 96376; 99284; 99285; J1200; J2060; J2270; J2405; J2765

== ENCOUNTER 2023-07-13 14:13 | Inpatient (IN) | payer OTHER, SELFPAY ==
[2023-07-13] VITALS (10 sets, daily range): BP systolic 103–153; BP diastolic 52–99; PULSE 88–150; RESP 16–19; TEMP 37–37.4; O2SAT 95–100; BMI 23.5
--- NOTE | ~2023-07-13 | CT_ITS ---
EXAMINATION: CT ABDOMEN AND PELVIS WITHOUT CONTRAST CLINICAL INFORMATION: Abdominal pain. Elevated lactate. COMPARISON: Previous CT October 2022 TECHNIQUE: Multidetector volumetric imaging was performed from the superior aspect of the liver through the pubic symphysis. Sagittal and coronal reformatted images were obtained on the technologist's workstation. This CT examination was performed using dose optimization techniques as appropriate, variously including the following: *Automated exposure control *Adjustment of mA and/or kV according to patient size (this includes techniques or standardized protocols for targeted exams where dose is matched to indication/reason for exam; i.e. extremities or head) *Use of iterative reconstruction technique DLP: 385 mGy-cm FINDINGS: LUNG BASES: The visualized lung bases are unremarkable. LIVER, GALLBLADDER, AND BILIARY TREE: The liver is normal in size, shape, and attenuation. No focal hepatic lesion or biliary ductal dilatation is present. The gallbladder is unremarkable with no evidence of radiopaque gallstones, gallbladder wall thickening, or obvious pericholecystic inflammatory changes. PANCREAS: Unremarkable. SPLEEN: Unremarkable. ADRENAL GLANDS: Unremarkable. KIDNEYS AND URETERS: The kidneys are normal in size, shape, and attenuation. No hydronephrosis, hydroureter, or calculi seen. No perinephric stranding. BLADDER: Unremarkable. GASTROINTESTINAL TRACT: The small and large bowel are unremarkable. The appendix is unremarkable. The stomach is unremarkable. There is wall thickening of the distal esophagus. No ascites. No pneumatosis or mesenteric air or portal vein air is seen. ABDOMINAL WALL: No significant hernia is appreciated. LYMPH NODES: Normal. VASCULAR: Unremarkable. PELVIC VISCERA: Unremarkable. OSSEOUS STRUCTURES: Unremarkable. CT/CT abdomen pelvis wo IV con IMPRESSION: Wall thickening of the distal thoracic esophagus. Otherwise unremarkable exam. Fleischner guidelines were followed.
[2023-07-13 14:31] LABS: Glucose, Whole Blood > 600 mg/dL (60-115)
--- NOTE | 2023-07-13 14:31 | ED.GENADULT ---
HPI - General Adult General Chief complaint: Abdominal Pain Stated complaint: ? DKA Vomiting Weak Time Seen by Provider: 07/13/23 14:38 Source: RN notes reviewed and old records reviewed History of Present Illness HPI narrative: 28-year-old male with a past medical history of diabetes, gastroparesis, cyclical vomiting, esophageal ulcer, presenting to the ED complaining of abdominal pain, nausea, vomiting, diarrhea, decreased p.o. intake, and hyperglycemia x2 days. States you, there was reading high at home. Reports compliance with his insulin, however unsure which type of insulin he takes. Also reports polyuria and polydipsia. Denies fever/chills, urinary symptoms Related Data Home Medications Medication Instructions Recorded Confirmed insulin lispro protamine-lispro 45 unit subcut DAILY 04/30/22 07/13/23 100 unit/mL (75-25) subcutaneous pen insulin lispro protamine-lispro 60 unit subcut BEDTIME 10/31/22 07/13/23 100 unit/mL (75-25) subcutaneous pen Allergies Allergy/AdvReac Type Severity Reaction Status Date / Time passion fruit [PASSION FRUIT] Allergy Unknown UNK Verified 11/26/22 23:14 Review of Systems Review of Systems: Constitutional: No Fever, No Chills, No Fatigue, No Malaise ENT/Mouth: No Ear Pain, No Nasal Congestion, No Sinus Pain, No Hoarseness, No sore throat, No Rhinorrhea, No Swallowing Difficulty Eyes: No Eye Pain, No Swelling, No Redness, No Foreign Body, No Discharge, No Vision Changes Cardiovascular: No Chest Pain, No SOB, No Edema, No Palpitations Respiratory: No Cough, No Sputum, No Dyspnea Gastrointestinal: +Nausea, + Vomiting, + Diarrhea, No Constipation, +Abdominal pain Genitourinary: No irregular bleeding, No Dysuria, No Urinary Frequency, No Hematuria, No Flank Pain Musculoskeletal: No joint pain, No Myalgias, No Joint Swelling Skin: No Skin Lesions, No rash Neuro: No Weakness, No Numbness, No Dizziness, No Headache Endocrine: + Polyuria, + Polydipsia, No Temperature Intolerance Yes all other systems are reviewed and are negative Constitutional: Constitutional: Reports as per [facility] Past Medical History Attestation statement: The following information was validated with the patient. Source: old records reviewed Medical History Noncompliance with medication regimen Diabetic gastroparesis 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 Esophageal ulcer Leukocytosis Diabetic keto-acidosis Gastroparesis Diabetes Surgical History No pertinent past surgical history Family History Family History Other No family history of coronary artery disease Social History Social History Household Members: Significant Other Household Members Other:: 2 Housing: Apartment Do you presently have visiting nurse or other home services: No Alcohol intake: current Alcohol intake frequency: a few times a month Alcohol type: beer Patient Tobacco Use Status: Never used Tobacco Smoked in Last 30 Days: No e-Cigarette/Vaping Use: Former Use Use of substances other than those prescribed or required for medical reasons: Yes Substance Use Type: Marijuana Substance Use Frequency: Occasionally Advance Directives: Yes Advance Directives on File: Yes Advance Directives Date on File: 01/22/21 service: No Current occupational status: employed Physical Exam ED Vital Signs: Vital Signs - 24 hr 07/13/23 14:18 07/13/23 15:22 Temperature 98.6 F Pulse Rate 119 H 104 H Respiratory Rate 18 16 Blood Pressure 136/94 H 141/93 H Pulse Oximetry 98 100 Oxygen Delivery Method Room Air Room Air BMI result Body Mass Index 23.5 Const General: cooperative, healthy appearing and no acute distress Orientation/consciousness: patient oriented x3 Limitations: no limitations HENMT Head: Yes normal to inspection and Yes atraumatic Ears: hearing grossly normal bilaterally General nose exam: Normal external nose present Face and sinus: Yes normal facial exam Eyes General: appearance normal, both eyes and all related structures EOM: EOMs intact bilaterally Neck Neck: Yes normal visual inspection and Yes no meningeal signs Resp Effort & Inspection: normal respiratory effort and no respiratory distress Auscultation: clear to auscultation bilaterally Cardio Rate: regular rate Heart sounds: S1 normal heart sound present and S2 normal heart sound present GI Inspection: Yes normal to inspection Palpation (GI): Soft to palpation, nontender, no guarding and not rigid General: Yes no CVA tenderness Back/Spine/Pelvis Back: no CVA tenderness Skin Rashes: no rashes Wounds: no wounds Neuro General: patient oriented x3, tone normal and no meningeal signs Cranial nerves: Yes CN's II-XII intact bilaterally Gait exam (Neuro): Normal gait present Extrem General: Yes normal to inspection Course Course Course Narrative: This is an RME: Additional HPI, ROS, PE not included below will be deferred to primary provider. This is a 28-year-old male, with a history of insulin-dependent diabetes, presenting to the emergency department with complaints of nausea, vomiting, diarrhea, abdominal pain x2 days. History of diabetes, has been using his insulin however blood glucose level has been high. In triage, POC = HIGH. Patient uncomfortable appearing, pulse 119, patient afebrile. Plan: Labs, patient brought back to room further evaluation. -leukocytosis of 16 likely reactive from nausea/vomiting.+ GISSELLE BUN 36, creatinine 2.41, anion gap of 28. Glucose 551 with a lactic acidosis of 3.8 -beta hydroxybutyrate positive > insulin bolus and drip ordered. Case discussed with clinical documentation improvement specialist, Dr. Kuhn who accepted admission Medications Administered Generic Name Dose Route Start Last Admin Trade Name Freq PRN Reason Stop Dose Admin Insulin Human Regular 100 unit in 100 mls @ 7 mls/hr 07/13/23 15:45 07/13/23 15:54 Myxredlin IVCONT 7 unit/hr .[id number] DESTINY 7 mls/hr Administration Protocol 7 UNIT/HR Discontinued Medications Generic Name Dose Route Start Last Admin Trade Name Freq PRN Reason Stop Dose Admin Lactated Ringer's 1,000 mls @ 999 mls/hr 07/13/23 14:45 07/13/23 15:13 Lr IV 07/13/23 15:45 999 mls/hr .Q1H1M DESTINY Administration Lactated Ringer's 1,000 mls @ 999 mls/hr 07/13/23 14:45 07/13/23 15:18 Lr IV 07/13/23 15:45 999 mls/hr .Q1H1M DESTINY Administration Insulin Human Regular 10 unit 07/13/23 15:35 07/13/23 15:43 Insulin Regular, Human 100 Unit/Ml 3 Ml Vial IVPUSH 07/13/23 15:36 10 unit ONCE ONE Administration Ketorolac Tromethamine 15 mg 07/13/23 14:49 07/13/23 15:07 Ketorolac Tromethamine 15 Mg/Ml Vial IVPUSH 07/13/23 14:50 Not Given ONCE ONE Ondansetron HCl 4 mg 07/13/23 14:41 07/13/23 15:05 Ondansetron Hcl 4 Mg/2 Ml Vial IVPUSH 07/13/23 14:42 4 mg ONCE ONE Administration Medical Decision Making Medical Decision Making MDM Narrative: 28-year-old male with a past medical history of diabetes, gastroparesis, cyclical vomiting, esophageal ulcer, presenting to the ED complaining of abdominal pain, nausea, vomiting, diarrhea, decreased p.o. intake, and hyperglycemia x2 days. On exam tachycardic, NAD, abdomen soft/nontender. POC >600 in triage. Concern for DKA vs hyperglycemia. Rule out dehydration/metabolic abnls and infectious etiologies low suspicion for severe sepsis at this time Plan: EKG, labs, UA, viral testing, IVF, +/-admission Please refer to course for remaining clinical decision making, interpretation of labs/imaging results, and discussions with consultants and/or family members. Differential Diagnosis Differential Diagnoses: The differential diagnosis associated with the presentation includes As above Admission/Observation Consideration of admission/observation: Escalation of care including admission/observation considered Lab Data MDM Lab Attestation statement: I reviewed the patient's lab results. 07/13/23 14:59 07/13/23 14:59 Labs: Lab Results 07/13/23 07/13/23 07/13/23 Range/Units 14:28 14:59 15:01 WBC 16.0 H (4.8-10.8) X10*3/uL RBC 5.89 H (4.60-5.80) X10*6/uL Hgb 16.6 (14.0-18.0) g/dl Hct 49.5 (42.0-52.0) % MCV 84.0 (80.0-98.0) fL MCH 28.2 (27.0-33.0) pg MCHC 33.5 (31.0-36.0) g/dl RDW 12.0 (11.0-16.0) % Plt Count 331 (160-400) X10*3/uL MPV 10.5 (9.4-12.4) fL Immature Gran % (Auto) 0.4 (0.0-0.4) % Neut % (Auto) 86.9 H (45-73) % Lymph % (Auto) 6.7 L (20-40) % [place] % (Auto) 5.8 (2-11) % Eos % (Auto) 0.0 (0-4) % Baso % (Auto) 0.2 (0-2) % Lymph # (Auto) 1.1 L (1.2-4.9) X10*3/uL [place] # (Auto) 0.9 (0.1-1.2) X10*3/uL Eos # (Auto) 0.0 (0.0-0.4) X10*3/uL Baso # (Auto) 0.0 (0.0-0.2) X10*3/uL Abs Immat Gran (auto) 0.06 H (0.00-0.03) X10*3/uL Absolute Neuts (auto) 13.9 H (2.0-8.3) x10*3/uL Absolute Nucleated RBC 0.000 (0.0-0.012) X10*3/uL Nucleated RBC % (auto) 0.0 (0.0-0.2) /100WBC VBG pH 7.39 (7.32-7.43) VBG pCO2 44 mmHg VBG pO2 39 mmHg VBG HCO3 27 H (22-26) mmol/L VBG O2 Saturation 61.0 % VBG Base Excess 1.6 mmol/L Sodium 136 (135-145) mmol/L Potassium 4.2 (3.3-5.1) mmol/L Chloride 87 L (96-108) mmol/L Carbon Dioxide 25 (22-29) mmol/L Anion Gap 28 H (12-20) BUN 36 H (9-16) mg/dL Creatinine 2.41 H (0.5-1.4) mg/dL Estim Creat Clear Calc 44.5 Estimated GFR 32 POC Glucose > 600 H* (60-115) mg/dL Random Glucose 551 H* (60-115) mg/dL Lactic Acid 3.8 H* (0.5-2.0) mmol/L Calcium 10.6 H D (8.4-10.2) mg/dL Magnesium 2.5 (1.6-2.6) mg/dL Total Bilirubin 0.7 (0.0-1.0) mg/dL Direct Bilirubin 0.2 (0.0-0.5) mg/dL AST 16 (5-37) U/L ALT 17 (0-40) U/L Alkaline Phosphatase 98 (39-117) U/L Total Protein 8.8 H (6.5-8.0) g/dL Albumin 5.0 (3.5-5.0) g/dL Lipase 15 (8-78) U/L Beta-Hydroxybutyrate 5.72 H (0.02-0.27) mmol/L Independent Interpretation I performed an independent interpretation of an: EKG Radiology Impression Discussion of test interpretation with radiology: I have reviewed the radiologist's reading. External Record Review External record reviewed: Inpatient record, Office record, Outpatient record, Prior outpatient labs, Prior outpatient radiology, Primary care record and Outside ED record Tests considered The following testing was considered but not selected: As above Prescription Management I considered prescription management with: Pain Medication Chronic Conditions Patient?s care impacted by: Diabetes Critical Care Time Critical Care Time Critical Care Time: Yes Total Critical Care Time: 50 Attestation: I have personally provided critical care time exclusive of time spent on separately billable procedures. Time includes review of lab data, radiology results, discussion with consultants, and monitoring for potential decompensation. Intervention performed as documented. Discharge Plan Discharge Clinical Impression: DKA (diabetic ketoacidosis) Patient Disposition: Admitted As Inpatient
--- NOTE | 2023-07-13 14:56 | ECG_ITS ---
Test Reason : HYPERGLYCEMIA Blood Pressure : / mmHG Vent. Rate : 104 BPM Atrial Rate : 104 BPM P-R Int : 142 ms QRS Dur : 074 ms QT Int : 316 ms P-R-T Axes : 048 051 020 degrees QTc Int : 415 ms Sinus tachycardia Otherwise normal ECG When compared with ECG of 31-OCT-2022 11:58, No significant change was found Referred By: Melisa Humphreys Electronically Signed By:WENDY BRAXTON
[2023-07-13 15:05] LABS: MANUAL DIFF FLAG NO
[2023-07-13] MEDS: ondansetron HCL 4 MG/2 ML VIAL IVPUSH ×2 (15:05→17:52)
[2023-07-13 15:07] LABS: Venous Blood Gas Refer to POC result
[2023-07-13 15:08] LABS: VBG Base Excess 1.6 mmol/L; VBG HCO3 27 mmol/L (22-26); VBG pCO2 44 mmHg; VBG pH 7.39 (7.32-7.43); VBG pO2 39 mmHg
[2023-07-13 15:11] LABS: Basophils Percent Auto 0.2 % (0-2); Hematocrit 49.5 % (42.0-52.0); Hemoglobin 16.6 g/dl (14.0-18.0); Imm Gran Abs Auto 0.06 X10*3/uL (0.00-0.03); Imm Gran Pct Auto 0.4 % (0.0-0.4); Lymphocytes Absolute Auto 1.1 X10*3/uL (1.2-4.9); Lymphocytes Percent Auto 6.7 % (20-40); Mean Corpuscular HGB Conc 33.5 g/dl (31.0-36.0); Mean Corpuscular Hemoglobin 28.2 pg (27.0-33.0); Mean Platelet Volume 10.5 fL (9.4-12.4); Monocytes Absolute Auto 0.9 X10*3/uL (0.1-1.2); Monocytes Percent Auto 5.8 % (2-11); Neutrophils Absolute Auto 13.9 x10*3/uL (2.0-8.3); Neutrophils Percent Auto 86.9 % (45-73); Platelet Count 331 X10*3/uL (160-400); Red Blood Count 5.89 X10*6/uL (4.60-5.80)
[2023-07-13] MEDS: Lactated Ringers 1,000 ML 999 ML IV ×2 (15:13→15:18)
[2023-07-13 15:24] LABS: Lactic Acid 3.8 mmol/L (0.5-2.0); Magnesium 2.5 mg/dL (1.6-2.6)
--- NOTE | 2023-07-13 15:31 | PC.NURSE ---
mohsen arrieta aware pt declined toradol
[2023-07-13 15:36] LABS: Alanine Aminotransferase 17 U/L (0-40); Alkaline Phosphatase 98 U/L (39-117); Anion Gap 28 (12-20); Aspartate Amino Transferase 16 U/L (5-37); Beta-Hydroxybutyrate 5.72 mmol/L (0.02-0.27); Bilirubin Direct 0.2 mg/dL (0.0-0.5); Bilirubin Total 0.7 mg/dL (0.0-1.0); Blood Urea Nitrogen 36 mg/dL (9-16); Calcium 10.6 mg/dL (8.4-10.2); Carbon Dioxide 25 mmol/L (22-29); Chloride 87 mmol/L (96-108); Creatinine Clr Calc Pharmacy 44.5; Estimated Glomerular Filt Rate 32; Glucose Random 551 mg/dL (60-115); Lipase 15 U/L (8-78); Potassium 4.2 mmol/L (3.3-5.1); Sodium 136 mmol/L (135-145); Total Protein 8.8 g/dL (6.5-8.0)
[2023-07-13] MEDS: Insulin Regular, Human 100 UNIT/ML 3 ML VIAL 10 UNIT IVPUSH (15:43)
--- NOTE | 2023-07-13 15:46 | PM.CCHP ---
History of Present Illness Date of Service: 07/13/23 Chief Complaint: Nausea, vomiting, abdominal pain 28-year-old gentleman with underlying history of diabetes mellitus, gastroparesis, cyclical vomiting, esophageal ulcer presents complaining of today history poor p.o. intake hyperglycemia, nausea and vomiting. On ER evaluation patient with hyperglycemia, elevated lactate, positive blood ketones, but no acidosis. He was started on insulin drip and IV fluids and admitted to intensive care unit. Review of Systems Constitutional: Constitutional: Denies daytime sleepiness, Denies excessive sweating, Denies fatigue, Denies fever(s), Denies lethargy, Denies malaise, Denies night sweats, Denies snoring and Denies weight loss Eyes: Eyes: Denies blurry vision and Denies itchy eyes ENT: Denies nasal congestion, Denies post nasal drip, Denies sinus pain, Denies sinus pressure and Denies other ( Thrush) Cardiovascular: Cardiovascular: Denies chest pain, Denies pedal edema, Denies dyspnea, Denies orthopnea and Denies paroxysmal nocturnal dyspnea Respiratory: Respiratory: Denies cough, Denies hemoptysis, Denies excessive phlegm production, Denies dyspnea, Denies snoring and Denies wheezing Gastrointestinal: Gastrointestinal: Reports abdominal pain, Denies heartburn, Reports nausea and Reports vomiting Musculoskeletal: Musculoskeletal: Denies myalgias, Denies arthralgias and Denies joint swelling Integumentary/Breasts: Skin/Breast: Denies rash Neurologic: Denies memory loss and Denies seizure-like activity Psychiatric: Psychiatric: Denies abnormal sleep pattern, Denies anxiety and Denies memory loss Endocrine: Endocrine: Denies excessive sweating, Denies fatigue and Denies heat intolerance Hematologic/Lymphatic: Hematologic/Lymphatic: Denies easy bruising Allergic/Immunologic: Allergic/Immunologic: Denies itchy eyes, Denies seasonal rhinorrhea and Denies wheezing PMFSH Past Medical History Medical History Noncompliance with medication regimen Diabetic gastroparesis 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 Esophageal ulcer Leukocytosis Diabetic keto-acidosis Gastroparesis Diabetes Family History Family History Other No family history of coronary artery disease Surgical History Surgical History No pertinent past surgical history Social History Social History Household Members: Significant Other Household Members Other:: 2 Housing: Apartment Do you presently have visiting nurse or other home services: No Alcohol intake: current Alcohol intake frequency: a few times a month Alcohol type: beer Patient Tobacco Use Status: Never used Tobacco Smoked in Last 30 Days: No e-Cigarette/Vaping Use: Former Use Use of substances other than those prescribed or required for medical reasons: Yes Substance Use Type: Marijuana Substance Use Frequency: Occasionally Advance Directives: Yes Advance Directives on File: Yes Advance Directives Date on File: 01/22/21 service: No Current occupational status: employed Meds Allergies Allergy/AdvReac Type Severity Reaction Status Date / Time passion fruit [PASSION FRUIT] Allergy Unknown UNK Verified 11/26/22 23:14 Active Medications: Current Medications Dextrose (Dextrose 50 % 25 Gm/50 Ml Syringe) 25 gm IVPUSH Q30M PRN PRN Reason: BG < 70 Heparin Sodium (Porcine) (Heparin Sodium,Porcine 5,000 Unit/Ml Vial) 5,000 unit SUBCUT Q8H [facility] Insulin Human Regular (Myxredlin) 100 unit in 100 mls @ 7 mls/hr IVCONT .[id number] DESTINY; Protocol Lactated Ringer's (Lr) 1,000 mls @ 200 mls/hr IVCONT .Q5H [facility] Home Medications Medication Instructions Recorded Confirmed Last Taken Type pantoprazole 40 mg tablet,delayed 1 tab PO DAILY@0630 03/15/22 10/31/22 10/30/22 History release insulin lispro protamine-lispro 50 unit subcut DAILY 04/30/22 10/31/22 10/30/22 History 100 unit/mL (75-25) subcutaneous pen coenzyme Q10 200 mg capsule 200 mg PO BID PRN nausea/vomiting 10/31/22 10/31/22 Unknown History insulin lispro protamine-lispro 60 unit subcut BEDTIME 10/31/22 10/31/22 10/30/22 History 100 unit/mL (75-25) subcutaneous pen sertraline 25 mg tablet 25 mg PO DAILY PRN anxiety attack 03/26/23 03/26/23 Unknown History lisinopril 5 mg tablet 5 mg DAILY 07/13/23 Unknown History simvastatin 20 mg tablet 20 mg BEDTIME 07/13/23 Unknown History Physical Exam Vital Signs: Vital Signs: Last Vital Signs Temp 98.6 F 07/13/23 14:18 Pulse 104 H 07/13/23 15:22 Resp 16 07/13/23 15:22 BP 141/93 H 07/13/23 15:22 Pulse Ox 100 07/13/23 15:22 O2 Del Method Room Air 07/13/23 15:22 BMI result Body Mass Index 23.5 Const: General: no acute distress, alert and awake Eyes: Sclerae: sclerae normal EOM: EOMs intact bilaterally Neck: Neck: Yes no lymphadenopathy, Yes trachea midline and Yes supple Resp: Effort & Inspection: normal respiratory effort and no respiratory distress Auscultation: clear to auscultation bilaterally Cardio: Rate: tachycardic Rhythm: regular rhythm Heart sounds: no gallops, no murmurs and no rubs GI: Palpation (GI): Soft to palpation and Other GI palpation findings present ( Nontender) Auscultation: normal bowel sounds Extrem: General: Yes no pedal edema, No clubbing and No cyanosis Results Labs 07/13/23 14:59 07/13/23 14:59 Labs: Laboratory Results - last 24 hr 07/13/23 07/13/23 07/13/23 14:28 14:59 15:01 MCV 84.0 MCH 28.2 MCHC 33.5 RDW 12.0 Plt Count 331 MPV 10.5 Immature Gran % (Auto) 0.4 Neut % (Auto) 86.9 H Lymph % (Auto) 6.7 L [place] % (Auto) 5.8 Eos % (Auto) 0.0 Baso % (Auto) 0.2 Lymph # (Auto) 1.1 L [place] # (Auto) 0.9 Eos # (Auto) 0.0 Baso # (Auto) 0.0 Abs Immat Gran (auto) 0.06 H Absolute Neuts (auto) 13.9 H Absolute Nucleated RBC 0.000 Nucleated RBC % (auto) 0.0 VBG pH 7.39 VBG pCO2 44 VBG pO2 39 VBG HCO3 27 H VBG O2 Saturation 61.0 VBG Base Excess 1.6 Anion Gap 28 H Estim Creat Clear Calc 44.5 Estimated GFR 32 POC Glucose > 600 H* Random Glucose 551 H* Lactic Acid 3.8 H* Calcium 10.6 H D Magnesium 2.5 Total Bilirubin 0.7 Direct Bilirubin 0.2 AST 16 ALT 17 Alkaline Phosphatase 98 Total Protein 8.8 H Albumin 5.0 Lipase 15 Beta-Hydroxybutyrate 5.72 H Assessment and Plan (1) Hyperosmolar hyperglycemic state (HHS): Status: Acute (2) Acute renal failure: Status: Resolved Plan Assessment: 28-year-old gentleman with underlying diabetes mellitus with prior admissions for DKA now admitted with abdominal pain and diabetic hyperglycemic hyperosmolar state further complicated by acute renal failure Plan: Neuro: No acute issues. Cardiac: No acute issues. Pulmonary: No acute issues. Renal: acute renal failure non oliguric. Likely secondary to diabetic hyperglycemic hyperosmolar state. Continue IV fluids. Continue to monitor renal indices and urine output. Endo: Diabetic hyperglycemic hyperosmolar state. Started on insulin drip, continue to titrate off as per protocol. GI: Nausea, vomiting and abdominal pain with unrevealing physical exam. May be secondary to diabetic hyperglycemic hyperosmolar state or underlying ulcer disease. Will obtain CT abdomen and pelvis Without contrast secondary to patient inability to tolerate p.o. contrast and significant underlying renal failure. ID: No acute issues Heme/Onc: No acute issues. Psych: No acute issues. Miscellaneous: No acute issues. Prophylaxis: heparin Diet: nothing by mouth
[2023-07-13] MEDS: Insulin Regular/NS 100 UNIT/100 ML PLAST..BAG 7 UNIT IVCONT (15:54)
[2023-07-13 15:56] LABS: Glucose, Whole Blood 416 mg/dL (60-115)
--- NOTE | 2023-07-13 16:00 | PHA.MEDREC ---
Pharmacy Consult ? Medication Reconciliation Pharmacy has completed the medication reconciliation. Patient report only taking insulin and nothing else. Mindy Ryder, PharmD
[2023-07-13] MEDS: Pantoprazole Sodium 40 MG/10 ML VIAL IVPUSH (16:43)
[2023-07-13] MEDS: Heparin Sodium,Porcine 5,000 UNIT/ML VIAL 5000 UNIT SUBCUT (16:43)
[2023-07-13 17:03] LABS: Reflex Lactate? Lactic Acid Added
[2023-07-13 17:07] LABS: Influenza A PCR NEGATIVE (Negative); Influenza B PCR NEGATIVE (Negative); Resp Syncy Virus RNA Qual PCR NEGATIVE (Negative); SARS COV2 PCR INHOUSE NEGATIVE (Negative)
--- NOTE | 2023-07-13 17:11 | PC.NURSE ---
insulin changed per protocol as dropped 200 on poc recheck. no new symptoms at this time. pt brought to ct w rn. pt on way at this time w rn and tech to icu
[2023-07-13 17:18] LABS: Glucose, Whole Blood 216 mg/dL (60-115)
[2023-07-13] MEDS: Lactated Ringers 1,000 ML 200 ML IVCONT (17:45)
[2023-07-13] MEDS: fentaNYL citrate/PF 100 MCG/2 ML VIAL 50 MCG IVPUSH ×2 (17:52→23:04)
[2023-07-13 18:24] LABS: Glucose, Whole Blood 111 mg/dL (60-115)
[2023-07-13 18:43] LABS: Glucose, Whole Blood 94 mg/dL (60-115)
[2023-07-13 19:10] LABS: Glucose, Whole Blood 87 mg/dL (60-115)
[2023-07-13] MEDS: Dextrose 5 % and Lactated Ring 1,000 ML 150 ML IVCONT (19:13)
[2023-07-13 20:08] LABS: Glucose, Whole Blood 103 mg/dL (60-115)
[2023-07-13 20:30] LABS: Anion Gap 16 (12-20); Blood Urea Nitrogen 34 mg/dL (9-16); Calcium 9.7 mg/dL (8.4-10.2); Carbon Dioxide 30 mmol/L (22-29); Chloride 98 mmol/L (96-108); Creatinine Clr Calc Pharmacy 65.4; Estimated Glomerular Filt Rate 51; Glucose Random 100 mg/dL (60-115); Phosphorus 1.4 mg/dL (2.7-4.5); Potassium 3.6 mmol/L (3.3-5.1); Sodium 140 mmol/L (135-145)
[2023-07-13 21:15] LABS: Glucose, Whole Blood 121 mg/dL (60-115)
[2023-07-13] MEDS: Sodium,Potassium Phosphates POWD.PACK 2 PACKET PO (21:51)
[2023-07-13 22:07] LABS: Glucose, Whole Blood 136 mg/dL (60-115)
[2023-07-13 23:11] LABS: Glucose, Whole Blood 175 mg/dL (60-115)
[2023-07-13 23:18] LABS: Appearance Urine Clear; Color Urine Yellow; Glucose Urine UA >=1000 mg/dL (Negative); Leukocyte Esterase Urine Negative (Negative); Nitrite Urine Negative (Negative); PH 5.5 (5.0-9.0); Specific Gravity - Urine >= 1.030 (1.005-1.025); UMIC TRIGGER UACC YES; Urine Blood Negative (Negative); Urine Ketones 80 mg/dL (Negative); Urine Protein 100 (2+) mg/dL (Neg-Trace)
[2023-07-13 23:20] LABS: Bacteria Urine None Seen (None Seen); RBC Urine 0-2 /HPF (0-2); Squamous Epithelial Cell Urine 0-2 /HPF (0-2); WBC Urine 0-5 /HPF (0-5)
[2023-07-13 23:27] LABS: Amphetamine Screen Urine Not Detected (Not Detect); Barbiturates, Urine Not Detected (Not Detect); Benzodiazepines Screen Urine Not Detected (Not Detect); Cannabinoid Screen Urine POSITIVE (Not Detect); Cocaine Screen Urine Not Detected (Not Detect); Fentanyl, urine POSITIVE (Not Detect); Opiate Screen Urine Not Detected (Not Detect); Phencyclidine Screen Urine Not Detected (Not Detect)
[2023-07-13 23:59] LABS: Glucose, Whole Blood 152 mg/dL (60-115)
[2023-07-14] VITALS (15 sets, daily range): BP systolic 92–145; BP diastolic 49–98; PULSE 70–94; RESP 15–20; TEMP 36.4–37.3; O2SAT 95–100; BMI 24.5
[2023-07-14] MEDS: Dextrose 5 % and Lactated Ring 1,000 ML 150 ML IVCONT (01:07)
[2023-07-14 01:22] LABS: Glucose, Whole Blood 120 mg/dL (60-115)
[2023-07-14 01:23] LABS: Anion Gap 12 (12-20); Blood Urea Nitrogen 30 mg/dL (9-16); Calcium 9.3 mg/dL (8.4-10.2); Carbon Dioxide 32 mmol/L (22-29); Chloride 99 mmol/L (96-108); Glucose Random 120 mg/dL (60-115); Potassium 3.6 mmol/L (3.3-5.1); Sodium 139 mmol/L (135-145)
[2023-07-14 01:42] LABS: Creatinine Clr Calc Pharmacy 68.8; Estimated Glomerular Filt Rate 54
[2023-07-14 02:10] LABS: Glucose, Whole Blood 129 mg/dL (60-115)
--- NOTE | 2023-07-14 02:26 | PC.NURSE ---
Addendum entered by Kenney Sparrow RN 07/14/23 06:04: LANTUS INSULIN SC ORDERED FOR 06:30...PER ICU PHOTOFLASH POWDER MIXER TO D/C INSULIN DRIP 1 HOUR AFTER RECEIPT OF LANTUS....IV FLUIDS TO BE CHANGED 07:30 AND DIET ORDERED PER PHOTOFLASH POWDER MIXER Addendum entered by Kenney Sparrow RN 07/14/23 02:44: POC GLUCOSES CHANGED TO Q2HR AND PRN BY ICU PHOTOFLASH POWDER MIXER Original Note: CARE ASSUMED 7PM...ALERT..ORIENTED X3...VSS....RESPIRATIONS EASY....IV FLUIDS CHANGED FROM LR 200 CC/HR TO D5LR 150 CC/HR FOR POC GLUCOSE 87..ASYMPTOMATIC...INSULIN DRIP PREVIOUSLY WEANED TO 0.75 UNITS/HR....HAD NOT VOIDED SINCE ARRIVAL TO ER...PER SHIFT REPORT PATIENT PREVIOUSLY BLADDER SCANNED 500ml APPROX 6PM.....STATED URGE TO VOID 8PM BUT UNABLE TO VOID...REFUSED STRAIGHT OR HITCHCOCK CATHETER...10:30-11PM BLADDER SCANNED 606ml...OOB TO COMMODE AND VOIDED 600ml YELLOW URINE...URINE DRUG SCREEN (+) FENTANYL BUT HAD PREVIOUSLY RECEIVED PRN FENTANYL PER MAR FOR C/O ABDOMINAL PAIN...NSR HR 80'S AT REST...SINUS TACH HR 130'S-140'S WHEN OOB TO COMMODE...ASYMPTOMATIC...SERIAL BLOOD WORK/POC GLUCOSES REVIEWED BY ICU PHOTOFLASH POWDER MIXER...NEUTRA-PHOS 2 PACKETS MIXED IN CRANBERRY JUICE PER PATIENT REQUEST TOLERATED W/O NAUSEA...RESTFUL OVERNIGHT...REPOSITIONS SELF AD-BETTINA
[2023-07-14] MEDS: fentaNYL citrate/PF 100 MCG/2 ML VIAL 50 MCG IVPUSH ×3 (03:44→08:00)
[2023-07-14 03:56] LABS: Glucose, Whole Blood 74 mg/dL (60-115)
[2023-07-14 04:54] LABS: VBG Base Excess 14.8 mmol/L; VBG HCO3 38 mmol/L (22-26); VBG pCO2 42 mmHg; VBG pH 7.57 (7.32-7.43); VBG pO2 63 mmHg
[2023-07-14 04:56] LABS: Venous Blood Gas Refer to POC result
[2023-07-14 05:19] LABS: Basophils Percent Auto 0.1 % (0-2); Eosinophils Percent Auto 0.1 % (0-4); Hematocrit 41.8 % (42.0-52.0); Hemoglobin 14.2 g/dl (14.0-18.0); Imm Gran Abs Auto 0.06 X10*3/uL (0.00-0.03); Imm Gran Pct Auto 0.4 % (0.0-0.4); Lymphocytes Percent Auto 13.2 % (20-40); MANUAL DIFF FLAG SCAN; Mean Corpuscular Hemoglobin 28.1 pg (27.0-33.0); Mean Corpuscular Volume 82.6 fL (80.0-98.0); Mean Platelet Volume 10.3 fL (9.4-12.4); Monocytes Absolute Auto 1.6 X10*3/uL (0.1-1.2); Monocytes Percent Auto 10.7 % (2-11); Neutrophils Absolute Auto 11.3 x10*3/uL (2.0-8.3); Neutrophils Percent Auto 75.5 % (45-73); Platelet Count 275 X10*3/uL (160-400); Red Blood Count 5.06 X10*6/uL (4.60-5.80); Red Cell Distribution Width 12.2 % (11.0-16.0); SCAN SMEAR FLAG 1
[2023-07-14 05:35] LABS: Alanine Aminotransferase 10 U/L (0-40); Albumin Level 3.5 g/dL (3.5-5.0); Alkaline Phosphatase 67 U/L (39-117); Anion Gap 13 (12-20); Aspartate Amino Transferase 15 U/L (5-37); Bilirubin Total 0.5 mg/dL (0.0-1.0); Blood Urea Nitrogen 26 mg/dL (9-16); Carbon Dioxide 31 mmol/L (22-29); Chloride 100 mmol/L (96-108); Creatinine Clr Calc Pharmacy 77.7; Estimated Glomerular Filt Rate > 60; Glucose Random 85 mg/dL (60-115); Magnesium 2.2 mg/dL (1.6-2.6); Phosphorus 3.1 mg/dL (2.7-4.5); Potassium 3.2 mmol/L (3.3-5.1); Sodium 141 mmol/L (135-145); Total Protein 6.1 g/dL (6.5-8.0)
[2023-07-14] MEDS: Pantoprazole Sodium 40 MG/10 ML VIAL IVPUSH (05:46)
[2023-07-14 05:47] LABS: SLIDE REVIEW VERIFIED
[2023-07-14 05:50] LABS: Glucose, Whole Blood 130 mg/dL (60-115)
[2023-07-14] MEDS: Insulin Glargine,Hum.rec.anlog 100 UNIT/ML 10 ML VIAL 42 UNIT SUBCUT (06:34)
[2023-07-14 07:37] LABS: Glucose, Whole Blood 171 mg/dL (60-115)
[2023-07-14] MEDS: Lactated Ringers 1,000 ML 150 ML IVCONT (07:37)
[2023-07-14] MEDS: Heparin Sodium,Porcine 5,000 UNIT/ML VIAL 5000 UNIT SUBCUT ×2 (07:59→17:03)
[2023-07-14] MEDS: Insulin Lispro 100 UNIT/ML 3 ML VIAL SUBCUT ×3 (08:00→20:54)
[2023-07-14] MEDS: Potassium Chloride Packet 20 MEQ PACKET 40 MEQ PO (08:01)
--- NOTE | 2023-07-14 09:44 | P.PNCC_ITS ---
Subjective Subjective Date of Service: 07/14/23 Interval History: 28-year-old gentleman with underlying history of diabetes mellitus, gastroparesis, cyclical vomiting, esophageal ulcer presents complaining of today history poor p.o. intake hyperglycemia, nausea and vomiting. On ER evaluation patient with hyperglycemia, elevated lactate, positive blood ketones, but no acidosis. He was started on insulin drip and IV fluids and admitted to intensive care unit. No events overnight. Titrated off insulin drip. Critical Care Time (minutes): 0 Physical Exam 2 Vital Signs: Vital Signs: Last Vital Signs Temp 97.5 F 07/14/23 07:00 Pulse 78 07/14/23 09:00 Resp 20 07/14/23 09:00 BP 101/60 07/14/23 09:00 Pulse Ox 95 07/14/23 09:00 O2 Del Method Room Air 07/14/23 09:00 BMI result Body Mass Index 24.5 Const: General: no acute distress, alert and awake Eyes: Sclerae: sclerae normal EOM: EOMs intact bilaterally Neck: Neck: Yes no lymphadenopathy, Yes trachea midline and Yes supple Resp: Effort & Inspection: normal respiratory effort and no respiratory distress Auscultation: clear to auscultation bilaterally Cardio: Rate: regular rate Rhythm: regular rhythm Heart sounds: no gallops, no murmurs and no rubs GI: Palpation (GI): Soft to palpation and Other GI palpation findings present ( Nontender) Auscultation: normal bowel sounds Extrem: General: Yes no pedal edema, No clubbing and No cyanosis Objective Data Labs 07/14/23 04:44 07/14/23 04:45 Labs: Laboratory Results - last 24 hr 07/13/23 07/13/23 07/13/23 14:28 14:59 15:01 WBC 16.0 H RBC 5.89 H Hgb 16.6 Hct 49.5 MCV 84.0 MCH 28.2 MCHC 33.5 RDW 12.0 Plt Count 331 MPV 10.5 Immature Gran % (Auto) 0.4 Neut % (Auto) 86.9 H Lymph % (Auto) 6.7 L [place] % (Auto) 5.8 Eos % (Auto) 0.0 Baso % (Auto) 0.2 Lymph # (Auto) 1.1 L [place] # (Auto) 0.9 Eos # (Auto) 0.0 Baso # (Auto) 0.0 Abs Immat Gran (auto) 0.06 H Absolute Neuts (auto) 13.9 H Absolute Nucleated RBC 0.000 Nucleated RBC % (auto) 0.0 Smear Tech's Comments VBG pH 7.39 VBG pCO2 44 VBG pO2 39 VBG HCO3 27 H VBG O2 Saturation 61.0 VBG Base Excess 1.6 Sodium 136 Potassium 4.2 Chloride 87 L Carbon Dioxide 25 Anion Gap 28 H BUN 36 H Creatinine 2.41 H Estim Creat Clear Calc 44.5 Estimated GFR 32 POC Glucose > 600 H* Random Glucose 551 H* Lactic Acid 3.8 H* Lactic Acid F/U @ 2Hr Calcium 10.6 H D Phosphorus Magnesium 2.5 Total Bilirubin 0.7 Direct Bilirubin 0.2 AST 16 ALT 17 Alkaline Phosphatase 98 Total Protein 8.8 H Albumin 5.0 Lipase 15 Beta-Hydroxybutyrate 5.72 H Urine Color Urine Appearance Urine pH Ur Specific [place] Urine Protein Urine Glucose (UA) Urine Ketones Urine Blood Urine Nitrite Ur Leukocyte Esterase Urine RBC Urine WBC Ur Squamous Epith Cells Urine Bacteria Hyaline Casts Urine Opiates Screen Urine Fentanyl Screen Ur Barbiturates Screen Ur Phencyclidine Scrn Ur Amphetamines Screen U Benzodiazepines Scrn Urine Cocaine Screen U Marijuana (THC) Screen Influenza Type A (PCR) Influenza Type B (PCR) RSV RNA Qual (PCR) SARS-CoV-2 RNA (RT-PCR) 07/13/23 07/13/23 07/13/23 15:14 15:29 15:50 WBC RBC Hgb Hct MCV MCH MCHC RDW Plt Count MPV Immature Gran % (Auto) Neut % (Auto) Lymph % (Auto) [place] % (Auto) Eos % (Auto) Baso % (Auto) Lymph # (Auto) [place] # (Auto) Eos # (Auto) Baso # (Auto) Abs Immat Gran (auto) Absolute Neuts (auto) Absolute Nucleated RBC Nucleated RBC % (auto) Smear Tech's Comments VBG pH VBG pCO2 VBG pO2 VBG HCO3 VBG O2 Saturation VBG Base Excess Sodium Potassium Chloride Carbon Dioxide Anion Gap BUN Creatinine Estim Creat Clear Calc Estimated GFR POC Glucose 416 H* Random Glucose Lactic Acid Lactic Acid F/U @ 2Hr Calcium Phosphorus Magnesium Total Bilirubin Direct Bilirubin AST ALT Alkaline Phosphatase Total Protein Albumin Lipase Beta-Hydroxybutyrate Urine Color Yellow Urine Appearance Clear Urine pH 5.5 Ur Specific [place] >= 1.030 H Urine Protein 100 (2+) H Urine Glucose (UA) >=1000 H Urine Ketones 80 Urine Blood Negative Urine Nitrite Negative Ur Leukocyte Esterase Negative Urine RBC 0-2 Urine WBC 0-5 Ur Squamous Epith Cells 0-2 Urine Bacteria None Seen Hyaline Casts 3-5 Urine Opiates Screen Urine Fentanyl Screen Ur Barbiturates Screen Ur Phencyclidine Scrn Ur Amphetamines Screen U Benzodiazepines Scrn Urine Cocaine Screen U Marijuana (THC) Screen Influenza Type A (PCR) NEGATIVE Influenza Type B (PCR) NEGATIVE RSV RNA Qual (PCR) NEGATIVE SARS-CoV-2 RNA (RT-PCR) NEGATIVE 07/13/23 07/13/23 07/13/23 16:50 18:20 18:21 WBC RBC Hgb Hct MCV MCH MCHC RDW Plt Count MPV Immature Gran % (Auto) Neut % (Auto) Lymph % (Auto) [place] % (Auto) Eos % (Auto) Baso % (Auto) Lymph # (Auto) [place] # (Auto) Eos # (Auto) Baso # (Auto) Abs Immat Gran (auto) Absolute Neuts (auto) Absolute Nucleated RBC Nucleated RBC % (auto) Smear Tech's Comments VBG pH VBG pCO2 VBG pO2 VBG HCO3 VBG O2 Saturation VBG Base Excess Sodium Potassium Chloride Carbon Dioxide Anion Gap BUN Creatinine Estim Creat Clear Calc Estimated GFR POC Glucose 216 H 111 Random Glucose Lactic Acid Lactic Acid F/U @ 2Hr 2.0 Calcium Phosphorus Magnesium Total Bilirubin Direct Bilirubin AST ALT Alkaline Phosphatase Total Protein Albumin Lipase Beta-Hydroxybutyrate Urine Color Urine Appearance Urine pH Ur Specific [place] Urine Protein Urine Glucose (UA) Urine Ketones Urine Blood Urine Nitrite Ur Leukocyte Esterase Urine RBC Urine WBC Ur Squamous Epith Cells Urine Bacteria Hyaline Casts Urine Opiates Screen Urine Fentanyl Screen Ur Barbiturates Screen Ur Phencyclidine Scrn Ur Amphetamines Screen U Benzodiazepines Scrn Urine Cocaine Screen U Marijuana (THC) Screen Influenza Type A (PCR) Influenza Type B (PCR) RSV RNA Qual (PCR) SARS-CoV-2 RNA (RT-PCR) 07/13/23 07/13/23 07/13/23 18:40 19:07 20:04 WBC RBC Hgb Hct MCV MCH MCHC RDW Plt Count MPV Immature Gran % (Auto) Neut % (Auto) Lymph % (Auto) [place] % (Auto) Eos % (Auto) Baso % (Auto) Lymph # (Auto) [place] # (Auto) Eos # (Auto) Baso # (Auto) Abs Immat Gran (auto) Absolute Neuts (auto) Absolute Nucleated RBC Nucleated RBC % (auto) Smear Tech's Comments VBG pH VBG pCO2 VBG pO2 VBG HCO3 VBG O2 Saturation VBG Base Excess Sodium Potassium Chloride Carbon Dioxide Anion Gap BUN Creatinine Estim Creat Clear Calc Estimated GFR POC Glucose 94 87 103 Random Glucose Lactic Acid Lactic Acid F/U @ 2Hr Calcium Phosphorus Magnesium Total Bilirubin Direct Bilirubin AST ALT Alkaline Phosphatase Total Protein Albumin Lipase Beta-Hydroxybutyrate Urine Color Urine Appearance Urine pH Ur Specific [place] Urine Protein Urine Glucose (UA) Urine Ketones Urine Blood Urine Nitrite Ur Leukocyte Esterase Urine RBC Urine WBC Ur Squamous Epith Cells Urine Bacteria Hyaline Casts Urine Opiates Screen Urine Fentanyl Screen Ur Barbiturates Screen Ur Phencyclidine Scrn Ur Amphetamines Screen U Benzodiazepines Scrn Urine Cocaine Screen U Marijuana (THC) Screen Influenza Type A (PCR) Influenza Type B (PCR) RSV RNA Qual (PCR) SARS-CoV-2 RNA (RT-PCR) 07/13/23 07/13/23 07/13/23 20:07 21:13 22:03 WBC RBC Hgb Hct MCV MCH MCHC RDW Plt Count MPV Immature Gran % (Auto) Neut % (Auto) Lymph % (Auto) [place] % (Auto) Eos % (Auto) Baso % (Auto) Lymph # (Auto) [place] # (Auto) Eos # (Auto) Baso # (Auto) Abs Immat Gran (auto) Absolute Neuts (auto) Absolute Nucleated RBC Nucleated RBC % (auto) Smear Tech's Comments VBG pH VBG pCO2 VBG pO2 VBG HCO3 VBG O2 Saturation VBG Base Excess Sodium 140 Potassium 3.6 Chloride 98 Carbon Dioxide 30 H Anion Gap 16 BUN 34 H Creatinine 1.64 H Estim Creat Clear Calc 65.4 Estimated GFR 51 POC Glucose 121 H 136 H Random Glucose 100 Lactic Acid Lactic Acid F/U @ 2Hr Calcium 9.7 D Phosphorus 1.4 L Magnesium Total Bilirubin Direct Bilirubin AST ALT Alkaline Phosphatase Total Protein Albumin Lipase Beta-Hydroxybutyrate Urine Color Urine Appearance Urine pH Ur Specific [place] Urine Protein Urine Glucose (UA) Urine Ketones Urine Blood Urine Nitrite Ur Leukocyte Esterase Urine RBC Urine WBC Ur Squamous Epith Cells Urine Bacteria Hyaline Casts Urine Opiates Screen Urine Fentanyl Screen Ur Barbiturates Screen Ur Phencyclidine Scrn Ur Amphetamines Screen U Benzodiazepines Scrn Urine Cocaine Screen U Marijuana (THC) Screen Influenza Type A (PCR) Influenza Type B (PCR) RSV RNA Qual (PCR) SARS-CoV-2 RNA (RT-PCR) 07/13/23 07/13/23 07/13/23 22:45 23:07 23:55 WBC RBC Hgb Hct MCV MCH MCHC RDW Plt Count MPV Immature Gran % (Auto) Neut % (Auto) Lymph % (Auto) [place] % (Auto) Eos % (Auto) Baso % (Auto) Lymph # (Auto) [place] # (Auto) Eos # (Auto) Baso # (Auto) Abs Immat Gran (auto) Absolute Neuts (auto) Absolute Nucleated RBC Nucleated RBC % (auto) Smear Tech's Comments VBG pH VBG pCO2 VBG pO2 VBG HCO3 VBG O2 Saturation VBG Base Excess Sodium Potassium Chloride Carbon Dioxide Anion Gap BUN Creatinine Estim Creat Clear Calc Estimated GFR POC Glucose 175 H 152 H Random Glucose Lactic Acid Lactic Acid F/U @ 2Hr Calcium Phosphorus Magnesium Total Bilirubin Direct Bilirubin AST ALT Alkaline Phosphatase Total Protein Albumin Lipase Beta-Hydroxybutyrate Urine Color Urine Appearance Urine pH Ur Specific [place] Urine Protein Urine Glucose (UA) Urine Ketones Urine Blood Urine Nitrite Ur Leukocyte Esterase Urine RBC Urine WBC Ur Squamous Epith Cells Urine Bacteria Hyaline Casts Urine Opiates Screen Not Detected Urine Fentanyl Screen POSITIVE H Ur Barbiturates Screen Not Detected Ur Phencyclidine Scrn Not Detected Ur Amphetamines Screen Not Detected U Benzodiazepines Scrn Not Detected Urine Cocaine Screen Not Detected U Marijuana (THC) Screen POSITIVE H Influenza Type A (PCR) Influenza Type B (PCR) RSV RNA Qual (PCR) SARS-CoV-2 RNA (RT-PCR) 07/14/23 07/14/23 07/14/23 00:57 01:02 02:06 WBC RBC Hgb Hct MCV MCH MCHC RDW Plt Count MPV Immature Gran % (Auto) Neut % (Auto) Lymph % (Auto) [place] % (Auto) Eos % (Auto) Baso % (Auto) Lymph # (Auto) [place] # (Auto) Eos # (Auto) Baso # (Auto) Abs Immat Gran (auto) Absolute Neuts (auto) Absolute Nucleated RBC Nucleated RBC % (auto) Smear Tech's Comments VBG pH VBG pCO2 VBG pO2 VBG HCO3 VBG O2 Saturation VBG Base Excess Sodium 139 Potassium 3.6 Chloride 99 Carbon Dioxide 32 H Anion Gap 12 BUN 30 H Creatinine 1.56 H Estim Creat Clear Calc 68.8 Estimated GFR 54 POC Glucose 120 H 129 H Random Glucose 120 H Lactic Acid Lactic Acid F/U @ 2Hr Calcium 9.3 Phosphorus Magnesium Total Bilirubin Direct Bilirubin AST ALT Alkaline Phosphatase Total Protein Albumin Lipase Beta-Hydroxybutyrate Urine Color Urine Appearance Urine pH Ur Specific [place] Urine Protein Urine Glucose (UA) Urine Ketones Urine Blood Urine Nitrite Ur Leukocyte Esterase Urine RBC Urine WBC Ur Squamous Epith Cells Urine Bacteria Hyaline Casts Urine Opiates Screen Urine Fentanyl Screen Ur Barbiturates Screen Ur Phencyclidine Scrn Ur Amphetamines Screen U Benzodiazepines Scrn Urine Cocaine Screen U Marijuana (THC) Screen Influenza Type A (PCR) Influenza Type B (PCR) RSV RNA Qual (PCR) SARS-CoV-2 RNA (RT-PCR) 07/14/23 07/14/23 07/14/23 03:50 04:44 04:45 WBC 15.0 H RBC 5.06 Hgb 14.2 Hct 41.8 L MCV 82.6 MCH 28.1 MCHC 34.0 RDW 12.2 Plt Count 275 MPV 10.3 Immature Gran % (Auto) 0.4 Neut % (Auto) 75.5 H Lymph % (Auto) 13.2 L [place] % (Auto) 10.7 Eos % (Auto) 0.1 Baso % (Auto) 0.1 Lymph # (Auto) 2.0 [place] # (Auto) 1.6 H Eos # (Auto) 0.0 Baso # (Auto) 0.0 Abs Immat Gran (auto) 0.06 H Absolute Neuts (auto) 11.3 H Absolute Nucleated RBC 0.000 Nucleated RBC % (auto) 0.0 Smear Tech's Comments VERIFIED VBG pH VBG pCO2 VBG pO2 VBG HCO3 VBG O2 Saturation VBG Base Excess Sodium 141 Potassium 3.2 L Chloride 100 Carbon Dioxide 31 H Anion Gap 13 BUN 26 H Creatinine 1.38 Estim Creat Clear Calc 77.7 Estimated GFR > 60 POC Glucose 74 Random Glucose 85 Lactic Acid Lactic Acid F/U @ 2Hr Calcium 9.0 Phosphorus 3.1 Magnesium 2.2 Total Bilirubin 0.5 Direct Bilirubin AST 15 ALT 10 Alkaline Phosphatase 67 Total Protein 6.1 L Albumin 3.5 Lipase Beta-Hydroxybutyrate Urine Color Urine Appearance Urine pH Ur Specific [place] Urine Protein Urine Glucose (UA) Urine Ketones Urine Blood Urine Nitrite Ur Leukocyte Esterase Urine RBC Urine WBC Ur Squamous Epith Cells Urine Bacteria Hyaline Casts Urine Opiates Screen Urine Fentanyl Screen Ur Barbiturates Screen Ur Phencyclidine Scrn Ur Amphetamines Screen U Benzodiazepines Scrn Urine Cocaine Screen U Marijuana (THC) Screen Influenza Type A (PCR) Influenza Type B (PCR) RSV RNA Qual (PCR) SARS-CoV-2 RNA (RT-PCR) 07/14/23 07/14/23 07/14/23 04:47 05:45 07:33 WBC RBC Hgb Hct MCV MCH MCHC RDW Plt Count MPV Immature Gran % (Auto) Neut % (Auto) Lymph % (Auto) [place] % (Auto) Eos % (Auto) Baso % (Auto) Lymph # (Auto) [place] # (Auto) Eos # (Auto) Baso # (Auto) Abs Immat Gran (auto) Absolute Neuts (auto) Absolute Nucleated RBC Nucleated RBC % (auto) Smear Tech's Comments VBG pH 7.57 H VBG pCO2 42 VBG pO2 63 VBG HCO3 38 H VBG O2 Saturation 92.0 VBG Base Excess 14.8 Sodium Potassium Chloride Carbon Dioxide Anion Gap BUN Creatinine Estim Creat Clear Calc Estimated GFR POC Glucose 130 H 171 H Random Glucose Lactic Acid Lactic Acid F/U @ 2Hr Calcium Phosphorus Magnesium Total Bilirubin Direct Bilirubin AST ALT Alkaline Phosphatase Total Protein Albumin Lipase Beta-Hydroxybutyrate Urine Color Urine Appearance Urine pH Ur Specific [place] Urine Protein Urine Glucose (UA) Urine Ketones Urine Blood Urine Nitrite Ur Leukocyte Esterase Urine RBC Urine WBC Ur Squamous Epith Cells Urine Bacteria Hyaline Casts Urine Opiates Screen Urine Fentanyl Screen Ur Barbiturates Screen Ur Phencyclidine Scrn Ur Amphetamines Screen U Benzodiazepines Scrn Urine Cocaine Screen U Marijuana (THC) Screen Influenza Type A (PCR) Influenza Type B (PCR) RSV RNA Qual (PCR) SARS-CoV-2 RNA (RT-PCR) Progress Note: A&P Assessment and plan (1) Hyperosmolar hyperglycemic state (HHS): Status: Acute Plan Assessment: 28-year-old gentleman with underlying diabetes mellitus with prior admissions for DKA now admitted with abdominal pain and diabetic hyperglycemic hyperosmolar state further complicated by acute renal failure Plan: Neuro: No acute issues. Cardiac: No acute issues. Pulmonary: No acute issues. Renal: acute renal failure non oliguric. Likely secondary to diabetic hyperglycemic hyperosmolar state, improving. Continue IV fluids. Continue to monitor renal indices and urine output. Endo: Diabetic hyperglycemic hyperosmolar state, resolved. Titrated off insulin drip. GI: CT abdomen/pelvis is normal. ID: No acute issues Heme/Onc: No acute issues. Psych: No acute issues. Miscellaneous: No acute issues. Prophylaxis: heparin Diet: Diabetic Quality Stroke Does the patient have a stroke diagnosis?: No VTE Prior VTE?: No VTE Risk Level:: Medical - moderate - high VTE Device Contraindication: Treatment Not Indicated VTE Drug Contraindication: N/A - Med Ordered
[2023-07-14 11:38] LABS: Glucose, Whole Blood 72 mg/dL (60-115)
[2023-07-14] MEDS: oxyCODONE HCl Immed Release 5 MG TABLET PO (11:55)
[2023-07-14] MEDS: ondansetron HCL 4 MG/2 ML VIAL IVPUSH ×2 (11:58→20:54)
--- NOTE | 2023-07-14 12:50 | MHC.CM.PN ---
Met w/pt to review d/c plan; pt states he resides w/family, has no services and is independent w/ADL's. Pt also states he has a working glucometer and has used a CGM system in the recent past but states is no longer using one. PCP is Dr. Branham (?) Pt states he will call family or friend for transportation to home: Declined HCP completion. CM to follow.
[2023-07-14 12:55] LABS: Anion Gap 12 (12-20); Blood Urea Nitrogen 19 mg/dL (9-16); Calcium 8.9 mg/dL (8.4-10.2); Carbon Dioxide 31 mmol/L (22-29); Chloride 99 mmol/L (96-108); Creatinine Clr Calc Pharmacy 81.3; Estimated Glomerular Filt Rate > 60; Glucose Random 135 mg/dL (60-115); Potassium 3.2 mmol/L (3.3-5.1); Sodium 139 mmol/L (135-145)
[2023-07-14] MEDS: Morphine Sulfate 2 MG/ML CARTRIDGE IVPUSH ×2 (14:40→20:32)
--- NOTE | 2023-07-14 16:36 | PM.EVENT ---
Event Note Date of Service: 07/14/23 Event Note: Patient seen and examined. I discussed the case with the ICU MD who transferred him to the floor today. He was admitted to the ICU with hyperglycemia, ketones, but no acidosis. He required intravenous insulin and has been experiencing abdominal pain. A CT scan of abdomen showed no acute changes. His hyperglycemia has resolved, but he continues to complain of abdominal pain. His potassium level is low, and he refused supplementation. We will continue management with insulin, advancement of his diet, and morphine for pain. Otherwise A/P per ICU note Time Spent With Patient Time: Total time managing care of this patient today ____ minutes.
[2023-07-14 16:55] LABS: Glucose, Whole Blood 197 mg/dL (60-115)
[2023-07-14] MEDS: Potassium Chloride/H20 10 MEQ/100 ML PIGGYBACK 100 MEQ IV ×2 (17:14→18:20)
[2023-07-14 20:38] LABS: Glucose, Whole Blood 224 mg/dL (60-115)
[2023-07-15 03:21] VITALS: BP 127/80; PULSE 87; RESP 17; TEMP 37.7; O2SAT 97
[2023-07-15] MEDS: Morphine Sulfate 2 MG/ML CARTRIDGE IVPUSH ×2 (04:10→10:22)
[2023-07-15 06:00] VITALS: BMI 24.5
[2023-07-15 07:03] VITALS: BP 141/88; PULSE 80; RESP 20; TEMP 37.2; O2SAT 97
[2023-07-15 07:29] LABS: Glucose, Whole Blood 162 mg/dL (60-115)
[2023-07-15 08:05] LABS: MANUAL DIFF FLAG NO
[2023-07-15 08:19] LABS: Basophils Percent Auto 0.5 % (0-2); Eosinophils Percent Auto 0.2 % (0-4); Hematocrit 41.8 % (42.0-52.0); Hemoglobin 14.1 g/dl (14.0-18.0); Imm Gran Abs Auto 0.03 X10*3/uL (0.00-0.03); Imm Gran Pct Auto 0.3 % (0.0-0.4); Lymphocytes Absolute Auto 1.3 X10*3/uL (1.2-4.9); Lymphocytes Percent Auto 14.4 % (20-40); Mean Corpuscular HGB Conc 33.7 g/dl (31.0-36.0); Mean Corpuscular Volume 85.8 fL (80.0-98.0); Mean Platelet Volume 10.6 fL (9.4-12.4); Monocytes Percent Auto 11.3 % (2-11); Neutrophils Absolute Auto 6.4 x10*3/uL (2.0-8.3); Neutrophils Percent Auto 73.3 % (45-73); Platelet Count 251 X10*3/uL (160-400); Red Blood Count 4.87 X10*6/uL (4.60-5.80); Red Cell Distribution Width 12.4 % (11.0-16.0); White Blood Count 8.8 X10*3/uL (4.8-10.8)
[2023-07-15] MEDS: Heparin Sodium,Porcine 5,000 UNIT/ML VIAL 5000 UNIT SUBCUT (08:22)
[2023-07-15] MEDS: Insulin Glargine,Hum.rec.anlog 100 UNIT/ML 10 ML VIAL 45 UNIT SUBCUT (08:22)
[2023-07-15] MEDS: Insulin Lispro 100 UNIT/ML 3 ML VIAL SUBCUT (08:23)
[2023-07-15] MEDS: ondansetron HCL 4 MG/2 ML VIAL IVPUSH (08:28)
[2023-07-15 08:35] LABS: Albumin Level 3.4 g/dL (3.5-5.0); Anion Gap 11 (12-20); Blood Urea Nitrogen 12 mg/dL (9-16); Calcium 8.6 mg/dL (8.4-10.2); Carbon Dioxide 29 mmol/L (22-29); Chloride 102 mmol/L (96-108); Creatinine Clr Calc Pharmacy 98.4; Estimated Glomerular Filt Rate > 60; Glucose Random 162 mg/dL (60-115); Magnesium 2.3 mg/dL (1.6-2.6); Phosphorus 2.7 mg/dL (2.7-4.5); Potassium 3.7 mmol/L (3.3-5.1); Sodium 138 mmol/L (135-145)
--- NOTE | 2023-07-15 10:53 | PM.DS ---
DS: Providers Provider Date of Service: 07/15/23 Date of admission: 07/13/23 15:43 Primary care physician: Unknown Physician DS: Diagnosis Discharge Diagnosis (1) Hyperosmolar hyperglycemic state (HHS): Status: Acute DS: Summary Hospital Course Hospital Course: Chief Complaint: Nausea, vomiting, abdominal pain 28-year-old gentleman with underlying history of diabetes mellitus, gastroparesis, cyclical vomiting, esophageal ulcer presents complaining of today history poor p.o. intake hyperglycemia, nausea and vomiting. On ER evaluation patient with hyperglycemia, elevated lactate, positive blood ketones, but no acidosis. He was started on insulin drip and IV fluids and admitted to intensive care unit. Hospital course: The patient presented with the above symptoms, and workup revealed hyperosmolar hyperglycemic state. Bicarbonate level was high and not in the acidotic range, but the calculated anion gap was high, which would be consistent with diabetic ketoacidosis (DKA). He was admitted to the ICU, and his management consisted of intravenous fluids, insulin, analgesics, and antiemetics. By the next day, his condition improved, and he was started on long-acting Lantus insulin instead of his mixed insulin, which was not available in the hospital. Other findings included acute renal failure that resolved with intravenous fluids and hypokalemia that was corrected. The rest of his labs, including bicarbonate and anion gap, were within normal limits. As for his abdominal pain, nausea, and vomiting, these were attributed to diabetic gastroparesis and improved with conservative management with intravenous fluids and antiemetics. A CT of the abdomen showed, no acute finding other some mild thickening of esophagus. His diet has been advanced, and he is tolerating it well. Overall, the patient is doing well and will be discharged home to resume his usual insulin regimen. He is reminded that he received long-acting Lantus insulin in the hospital today and should therefore resume his evening dose and check his blood sugar levels as usual. Time Attestation Discharge coordination time: Greater than 30 minutes Quality: Safe Use of Opioids Does Pt have an Active Cancer Diagnosis on the Problem List?: No Quality: Stroke Does the patient have a stroke diagnosis?: No Physical Exam Vital Signs: Vital Signs: Last Vital Signs Temp 98.9 F 07/15/23 07:03 Pulse 80 07/15/23 07:03 Resp 20 07/15/23 07:03 BP 141/88 H 12/08/23 07:03 Pulse Ox 97 07/15/23 07:03 O2 Del Method Room Air 07/15/23 07:03 BMI result Body Mass Index 24.5 DS: Data Data Completed and Pending Completed studies during hospitalization [Text1]: Procedures Excision of Stomach, Pylorus, Via Natural or Artificial Opening Endoscopic, Diagnostic (06/22/21) Labs on day of discharge: Laboratory Results - last 24 hr 07/14/23 07/14/23 07/14/23 11:28 12:23 16:21 WBC RBC Hgb Hct MCV MCH MCHC RDW Plt Count MPV Immature Gran % (Auto) Neut % (Auto) Lymph % (Auto) [place] % (Auto) Eos % (Auto) Baso % (Auto) Lymph # (Auto) [place] # (Auto) Eos # (Auto) Baso # (Auto) Abs Immat Gran (auto) Absolute Neuts (auto) Absolute Nucleated RBC Nucleated RBC % (auto) Sodium 139 Potassium 3.2 L Chloride 99 Carbon Dioxide 31 H Anion Gap 12 BUN 19 H Creatinine 1.32 Estim Creat Clear Calc 81.3 Estimated GFR > 60 POC Glucose 72 197 H Random Glucose 135 H Calcium 8.9 Phosphorus Magnesium Albumin 07/14/23 07/15/23 07/15/23 20:24 07:03 07:05 WBC 8.8 RBC 4.87 Hgb 14.1 Hct 41.8 L MCV 85.8 MCH 29.0 MCHC 33.7 RDW 12.4 Plt Count 251 MPV 10.6 Immature Gran % (Auto) 0.3 Neut % (Auto) 73.3 H Lymph % (Auto) 14.4 L [place] % (Auto) 11.3 H Eos % (Auto) 0.2 Baso % (Auto) 0.5 Lymph # (Auto) 1.3 [place] # (Auto) 1.0 Eos # (Auto) 0.0 Baso # (Auto) 0.0 Abs Immat Gran (auto) 0.03 Absolute Neuts (auto) 6.4 Absolute Nucleated RBC 0.000 Nucleated RBC % (auto) 0.0 Sodium 138 Potassium 3.7 Chloride 102 Carbon Dioxide 29 Anion Gap 11 L BUN 12 Creatinine 1.09 Estim Creat Clear Calc 98.4 Estimated GFR > 60 POC Glucose 224 H 162 H Random Glucose 162 H Calcium 8.6 Phosphorus 2.7 Magnesium 2.3 Albumin 3.4 L Discharge Plan Discharge Anticipated Discharge Date/Time: 07/15/23 10:40 Patient Disposition: Home, Self-Care Discharge Diagnosis: Hyperosmolar hyperglycemic state, Hypokalemia, nause and vomitting d/t gastroparesis Referrals: Physician,Unknown J [Physician] - 1 Week Discharge Medications: Continued insulin lispro protamin-lispro 100 unit/mL (75-25) insulin pen 45 unit subcut DAILY Rx Instructions: before meals insulin lispro protamin-lispro 100 unit/mL (75-25) insulin pen 60 unit subcut BEDTIME Rx Instructions: before meals No Action ondansetron 4 mg tablet,disintegrating 4 mg PO Q8H PRN (Reason: nausea and vomiting) Qty: 20 0RF promethazine 25 mg tablet 25 mg PO TID PRN (Reason: nausea and vomiting) Qty: 20 0RF Discharge Orders: Discharge Order (Routine); Ordered 07/15/23 Ordered By: Clyde Escalera Diet: Diabetic diet Activity on Discharge: As tolerated Stand Alone Forms: Patient Portal Discharge page, Work/School Release Care Plan Goals: To control blood sugar, prevent high blood sugars and complications of diabetes such as gastroparesis Health Concerns: Hyperglycemia due to diabetes Plan of Treatment: You should resume your insulin regimen as usual. Check your sugars before meals and at bedtime, or as needed in between. Follow up with your doctor in a week to 10 days. If your symptoms return and you are unable to take insulin, call 911 or return to the emergency room. Arrange a follow up visit with your doctor Take 20 units of insulin tonight and resume your usual schedule by tomorrow morning, continue monitoring your sugar as usual. You received 45 units of Lantus a long acting insulin this morning Assessment: as above Patient Instructions: Diabetic Ketoacidosis (DC) Discharge Date/Time: 07/15/23 15:23
--- NOTE | 2023-07-15 10:55 | MHC.CM.PN ---
Pt has been medically cleared for DC, he will go home via private transportation, no home health services needed.
[2023-07-15 11:09] VITALS: BP 137/72; PULSE 79; RESP 20; TEMP 36.9; O2SAT 97
[2023-07-15 11:47] LABS: Glucose, Whole Blood 116 mg/dL (60-115)
== END 2023-07-15 15:23 | disposition home or self-care (01) | DRG 420 ==
LOC: HO.ED 15:47 → HO.EDOVER 15:52 → HO.ICU 16:05 → HO.IMC 07-14 12:38
PROVIDERS: Nurse Practitioner Family; Physician Assistant; Physician Assistant Medical; Admitting Provider Internal Medicine Pulmonary Disease; Emergency Provider Emergency Medicine; PCP Internal Medicine; Visit Provider Internal Medicine
DX: E11.00 Type 2 diabetes mellitus with hyperosmolarity without nonketotic hyperglycemic-hyperosmolar coma (NKHHC) (principal); N17.9 Acute kidney failure, unspecified; E87.6 Hypokalemia; E11.43 Type 2 diabetes mellitus with diabetic autonomic (poly)neuropathy; K31.84 Gastroparesis; Z79.4 Long term (current) use of insulin; Z20.822 Contact with and (suspected) exposure to COVID-19
CPT/HCPCS: 0241U; 36415; 74176; 80048; 80053; 80076; 80307; 81001; 82010; 82040; 82803; 82947; 83605; 83690; 83735; 84100; 85025; 93005; 99285; C9113; J1644; J2270; J2405; J3010; J3480; J7120

== ENCOUNTER → 2023-07-13 14:56 | Outpatient (BNV) | payer OTHER, SELFPAY | PROVIDERS: Admitting Provider Internal Medicine Pulmonary Disease; Emergency Provider Emergency Medicine; Visit Provider Internal Medicine | DX: R00.0 Tachycardia, unspecified (principal) | CPT/HCPCS: 93010 ==

== ENCOUNTER → 2023-07-13 15:43 | Outpatient (BNV) | payer OTHER, SELFPAY | PROVIDERS: Admitting Provider Internal Medicine Pulmonary Disease; Emergency Provider Emergency Medicine; Visit Provider Internal Medicine Pulmonary Disease | DX: E11.00 Type 2 diabetes mellitus with hyperosmolarity without nonketotic hyperglycemic-hyperosmolar coma (NKHHC) (principal) | CPT/HCPCS: 99223; 99232 ==

== ENCOUNTER → 2023-07-13 15:43 | Outpatient (BNV) | payer OTHER, SELFPAY | PROVIDERS: Admitting Provider Internal Medicine Pulmonary Disease; Emergency Provider Emergency Medicine; Visit Provider Internal Medicine | DX: E11.00 Type 2 diabetes mellitus with hyperosmolarity without nonketotic hyperglycemic-hyperosmolar coma (NKHHC) (principal) | CPT/HCPCS: 99239; 99499 ==

== ENCOUNTER 2023-07-17 19:41 | Emergency (ER) | payer OTHER, SELFPAY ==
[2023-07-17 20:00] VITALS: BP 144/100; PULSE 92; RESP 18; TEMP 37.1; O2SAT 100; BMI 25.0
[2023-07-17 20:39] LABS: Glucose, Whole Blood 421 mg/dL (60-115)
[2023-07-17 20:57] LABS: MANUAL DIFF FLAG NO
[2023-07-17 21:10] LABS: Basophils Percent Auto 0.4 % (0-2); Eosinophils Absolute Auto 0.1 X10*3/uL (0.0-0.4); Eosinophils Percent Auto 0.8 % (0-4); Hematocrit 42.6 % (42.0-52.0); Hemoglobin 14.7 g/dl (14.0-18.0); Imm Gran Abs Auto 0.02 X10*3/uL (0.00-0.03); Imm Gran Pct Auto 0.3 % (0.0-0.4); Lymphocytes Absolute Auto 1.7 X10*3/uL (1.2-4.9); Lymphocytes Percent Auto 20.9 % (20-40); Mean Corpuscular HGB Conc 34.5 g/dl (31.0-36.0); Mean Corpuscular Hemoglobin 28.7 pg (27.0-33.0); Mean Platelet Volume 9.7 fL (9.4-12.4); Monocytes Absolute Auto 1.2 X10*3/uL (0.1-1.2); Monocytes Percent Auto 14.8 % (2-11); Neutrophils Percent Auto 62.8 % (45-73); Platelet Count 262 X10*3/uL (160-400); Red Blood Count 5.13 X10*6/uL (4.60-5.80); Red Cell Distribution Width 11.7 % (11.0-16.0)
[2023-07-17 21:17] LABS: Alanine Aminotransferase 10 U/L (0-40); Albumin Level 3.9 g/dL (3.5-5.0); Alkaline Phosphatase 77 U/L (39-117); Anion Gap 13 (12-20); Aspartate Amino Transferase 11 U/L (5-37); Beta-Hydroxybutyrate 0.43 mmol/L (0.02-0.27); Bilirubin Total 0.5 mg/dL (0.0-1.0); Blood Urea Nitrogen 15 mg/dL (9-16); Calcium 9.4 mg/dL (8.4-10.2); Carbon Dioxide 27 mmol/L (22-29); Chloride 97 mmol/L (96-108); Estimated Glomerular Filt Rate > 60; Glucose Random 316 mg/dL (60-115); Potassium 4.4 mmol/L (3.3-5.1); Sodium 133 mmol/L (135-145); Total Protein 6.8 g/dL (6.5-8.0)
--- NOTE | 2023-07-17 22:05 | ECG_ITS ---
Test Reason : ABDOMINAL PAIN Blood Pressure : / mmHG Vent. Rate : 077 BPM Atrial Rate : 077 BPM P-R Int : 136 ms QRS Dur : 080 ms QT Int : 382 ms P-R-T Axes : 028 024 034 degrees QTc Int : 432 ms Normal sinus rhythm Normal ECG When compared with ECG of 13-JUL-2023 15:09, No significant change was found Referred By: Danielle Ortiz Electronically Signed By:Roberto Agee
[2023-07-17 22:20] VITALS: BP 139/102; PULSE 84; RESP 12; TEMP 37; O2SAT 100
--- NOTE | 2023-07-17 22:30 | ED.NAVMDI ---
HPI - Nausea/Vomiting/Diarrhea General Chief complaint: Nausea/Vomiting/Diarrhea Stated complaint: vomiting, elevated blood sugars Time Seen by Provider: 07/17/23 22:05 Source: patient and old records reviewed Mode of arrival: ambulatory Limitations: no limitations History of Present Illness HPI Narrative: 28 yo male with PMH of IDDM, DKA, cyclical vomiting just admitted W-F this week for DKA back again stating he has n/v and unable to keep anything down. Notes morphine helps him. At this time he states he is not eating and is taking lantus. He denies fevers, diarrhea. MD elicited complaint: nausea, vomiting and abdominal pain Onset (ago): day(s) (5) Description of vomiting: watery Associated nausea: Yes Associated abdominal pain: Yes Location of pain: epigastric Pain consistency: constant Severity: severe Quality: stabbing Exacerbating factors: eating Relieving factors: none Context: other (hx of frequent bouts) Associated symptoms: loss of appetite, malaise, nausea/vomiting and weakness Related Data Home Medications Medication Instructions Recorded Confirmed insulin lispro protamine-lispro 45 unit subcut DAILY 04/30/22 07/13/23 100 unit/mL (75-25) subcutaneous pen insulin lispro protamine-lispro 60 unit subcut BEDTIME 10/31/22 07/13/23 100 unit/mL (75-25) subcutaneous pen Previous Rx's Medication Instructions Recorded ondansetron 4 mg disintegrating 4 mg PO Q8H PRN nausea and 07/18/23 tablet vomiting #20 tabs promethazine 25 mg tablet 25 mg PO TID PRN nausea and 07/18/23 vomiting #20 tabs Allergies Allergy/AdvReac Type Severity Reaction Status Date / Time passion fruit [PASSION FRUIT] Allergy Unknown UNK Verified 07/17/23 20:05 Review of Systems Review of Systems: Constitutional : No Weight loss, No Fever, No Chills ENT/Mouth : No sore throat, No Rhinorrhea Eyes: No Swelling, No Redness Cardiovascular : No Chest Pain, No SOB, NoEdema Respiratory : No Cough, No Sputum, No Wheezing Gastrointestinal : Positive Nausea, Positive Vomiting, no Diarrhea, positive abdominal Pain, No Hematochezia, No Melena Genitourinary : No Dysuria, No Urinary Frequency, No Hematuria, No Urgency Musculoskeletal : No joint pain, No Myalgias, No Joint Swelling Skin : No Skin Lesions, No rash Neuro : No Weakness, No Numbness, No Dizziness, No Headache Psych : No Anxiety/Panic, No Depression All other systems reviewed and are negative. Gastrointestinal: Gastrointestinal: Reports nausea PMFSH Past Medical History Attestation statement: The following information was validated with the patient. Source: old records reviewed Medical History Noncompliance with medication regimen Diabetic gastroparesis 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 Esophageal ulcer Leukocytosis Diabetic keto-acidosis Gastroparesis Diabetes Surgical History No pertinent past surgical history Family History Family History Other No family history of coronary artery disease Social History Social History Household Members: None Household Members Other:: 2 Housing: Apartment Do you presently have visiting nurse or other home services: No Alcohol intake: current Alcohol intake frequency: holidays/special occasions only Alcohol type: hard liquor Comment: pt is low fall risk Patient Tobacco Use Status: Never used Tobacco Smoked in Last 30 Days: No e-Cigarette/Vaping Use: Former Use Substance Use Type: Marijuana Substance Use Frequency: Occasionally Last Used Substance: Weeks (ago) Any prior treatment program specific to substance use: No Advance Directives: Yes Advance Directives on File: Yes Advance Directives Date on File: 01/22/21 service: No Current occupational status: employed Physical Exam Vital Signs: Vital Signs: Last Vital Signs Temp 98.6 F 07/18/23 00:37 Pulse 87 07/18/23 00:37 Resp 20 07/18/23 00:37 BP 119/80 07/18/23 00:37 Pulse Ox 99 07/18/23 00:37 O2 Del Method Room Air 07/18/23 00:37 BMI result Body Mass Index 25.0 Appearance: Alert. Oriented X3. No acute distress. Eyes: Pupils equal, round and reactive to light. ENT: Pharynx normal. Neck: Normal inspection. Neck supple. CVS: Normal heart rate and rhythm. Pulses normal. Respiratory: No respiratory distress. Breath sounds normal. Abdomen: Soft and mild epigastric ttp no rebound. Skin: Skin warm and dry. Normal skin color. Normal skin turgor. Extremities: No lower extremity edema. No calf ttp Neuro: Oriented X 3. No motor deficit. No sensory deficit. Course Course Course Narrative: BS 33 - states only took 45 units of lantus 1 hour prior to arrival - has had significant drop in BS will try to feed patient and recheck. eating BS up to 71 will continue to monitor Reevaluation(s) Reevaluation #1: will obs til 3 AM for hypoglycemia if he remains normal he is tolerating PO can go home at 3am. was able to get his BS up with food no dextrose IV was given. Medications Administered Discontinued Medications Generic Name Dose Route Start Last Admin Trade Name Harpreetq PRN Reason Stop Dose Admin Diphenhydramine HCl 25 mg 07/17/23 22:05 07/17/23 22:32 Diphenhydramine Hcl 50 Mg/Ml Vial IVPUSH 07/17/23 22:06 25 mg ONCE ONE Administration Droperidol 1.25 mg 07/17/23 22:05 07/17/23 22:32 Droperidol 5 Mg/2 Ml Vial IVPUSH 07/17/23 22:06 1.25 mg ONCE ONE Administration Lactated Ringer's 1,000 mls @ 999 mls/hr 07/17/23 22:15 07/17/23 23:40 Lr IV 07/17/23 23:15 Infused .Q1H1M DESTINY Infusion Lactated Ringer's 1,000 mls @ 999 mls/hr 07/17/23 22:15 07/17/23 23:40 Lr IV 07/17/23 23:15 Infused .Q1H1M DESTINY Infusion Insulin Human Regular 5 unit 07/17/23 22:05 07/17/23 22:34 Insulin Regular, Human 100 Unit/Ml 3 Ml Vial IVPUSH 07/17/23 22:06 5 unit ONCE ONE Administration Medical Decision Making Medical Decision Making [facility] Narrative: 28 yo male with PMH of IDDM, cyclical vomiting, DKA just admitted Tuesday to Tuesday - states he still have n/v he tells me morphine helps him. At this time he is not in DKA - he states he is taking his insulin though not using short acting. At this time will obtain basic labs, IVF x2L, try droperidol suspect consistent THC use. Dispo depends on his ability to tolerate PO Differential Diagnosis Differential Diagnoses: The differential diagnosis associated with the presentation includes cyclical vomiting, hyperemesis Admission/Observation Consideration of admission/observation: Escalation of care including admission/observation considered if BS remains normal at 3 hour samaria he is tolerating PO not in DKA can be DC home Lab Data MDM Lab Attestation statement: I reviewed the patient's lab results. 07/17/23 20:54 07/17/23 20:54 Labs: Lab Results 07/17/23 07/17/23 07/18/23 Range/Units 20:08 20:54 00:05 WBC 8.0 (4.8-10.8) X10*3/uL RBC 5.13 (4.60-5.80) X10*6/uL Hgb 14.7 (14.0-18.0) g/dl Hct 42.6 (42.0-52.0) % MCV 83.0 (80.0-98.0) fL MCH 28.7 (27.0-33.0) pg MCHC 34.5 (31.0-36.0) g/dl RDW 11.7 (11.0-16.0) % Plt Count 262 (160-400) X10*3/uL MPV 9.7 (9.4-12.4) fL Immature Gran % (Auto) 0.3 (0.0-0.4) % Neut % (Auto) 62.8 (45-73) % Lymph % (Auto) 20.9 (20-40) % [place] % (Auto) 14.8 H (2-11) % Eos % (Auto) 0.8 (0-4) % Baso % (Auto) 0.4 (0-2) % Lymph # (Auto) 1.7 (1.2-4.9) X10*3/uL [place] # (Auto) 1.2 (0.1-1.2) X10*3/uL Eos # (Auto) 0.1 (0.0-0.4) X10*3/uL Baso # (Auto) 0.0 (0.0-0.2) X10*3/uL Abs Immat Gran (auto) 0.02 (0.00-0.03) X10*3/uL Absolute Neuts (auto) 5.0 (2.0-8.3) x10*3/uL Absolute Nucleated RBC 0.000 (0.0-0.012) X10*3/uL Nucleated RBC % (auto) 0.0 (0.0-0.2) /100WBC Sodium 133 L (135-145) mmol/L Potassium 4.4 (3.3-5.1) mmol/L Chloride 97 (96-108) mmol/L Carbon Dioxide 27 (22-29) mmol/L Anion Gap 13 (12-20) BUN 15 (9-16) mg/dL Creatinine 1.39 (0.5-1.4) mg/dL Estim Creat Clear Calc 72.0 Estimated GFR > 60 POC Glucose 421 H* 33 L* (60-115) mg/dL Random Glucose 316 H (60-115) mg/dL Calcium 9.4 D (8.4-10.2) mg/dL Total Bilirubin 0.5 (0.0-1.0) mg/dL AST 11 (5-37) U/L ALT 10 (0-40) U/L Alkaline Phosphatase 77 (39-117) U/L Total Protein 6.8 (6.5-8.0) g/dL Albumin 3.9 (3.5-5.0) g/dL Beta-Hydroxybutyrate 0.43 H (0.02-0.27) mmol/L Urine Color Urine Appearance Urine pH (5.0-9.0) Ur Specific [place] (1.005-1.025) Urine Protein (Neg-Trace) mg/dL Urine Glucose (UA) (Negative) mg/dL Urine Ketones (Negative) mg/dL Urine Blood (Negative) Urine Nitrite (Negative) Ur Leukocyte Esterase (Negative) Urine RBC (0-2) /HPF Urine WBC (0-5) /HPF Ur Squamous Epith Cells (0-2) /HPF Urine Bacteria (None Seen) Hyaline Casts (0-2) /LPF Urine Opiates Screen (Not Detect) Urine Fentanyl Screen (Not Detect) Ur Barbiturates Screen (Not Detect) Ur Phencyclidine Scrn (Not Detect) Ur Amphetamines Screen (Not Detect) U Benzodiazepines Scrn (Not Detect) Urine Cocaine Screen (Not Detect) U Marijuana (THC) Screen (Not Detect) 07/18/23 07/18/23 07/18/23 Range/Units 00:33 00:42 01:10 WBC (4.8-10.8) X10*3/uL RBC (4.60-5.80) X10*6/uL Hgb (14.0-18.0) g/dl Hct (42.0-52.0) % MCV (80.0-98.0) fL MCH (27.0-33.0) pg MCHC (31.0-36.0) g/dl RDW (11.0-16.0) % Plt Count (160-400) X10*3/uL MPV (9.4-12.4) fL Immature Gran % (Auto) (0.0-0.4) % Neut % (Auto) (45-73) % Lymph % (Auto) (20-40) % [place] % (Auto) (2-11) % Eos % (Auto) (0-4) % Baso % (Auto) (0-2) % Lymph # (Auto) (1.2-4.9) X10*3/uL [place] # (Auto) (0.1-1.2) X10*3/uL Eos # (Auto) (0.0-0.4) X10*3/uL Baso # (Auto) (0.0-0.2) X10*3/uL Abs Immat Gran (auto) (0.00-0.03) X10*3/uL Absolute Neuts (auto) (2.0-8.3) x10*3/uL Absolute Nucleated RBC (0.0-0.012) X10*3/uL Nucleated RBC % (auto) (0.0-0.2) /100WBC Sodium (135-145) mmol/L Potassium (3.3-5.1) mmol/L Chloride (96-108) mmol/L Carbon Dioxide (22-29) mmol/L Anion Gap (12-20) BUN (9-16) mg/dL Creatinine (0.5-1.4) mg/dL Estim Creat Clear Calc Estimated GFR POC Glucose 71 144 H (60-115) mg/dL Random Glucose (60-115) mg/dL Calcium (8.4-10.2) mg/dL Total Bilirubin (0.0-1.0) mg/dL AST (5-37) U/L ALT (0-40) U/L Alkaline Phosphatase (39-117) U/L Total Protein (6.5-8.0) g/dL Albumin (3.5-5.0) g/dL Beta-Hydroxybutyrate (0.02-0.27) mmol/L Urine Color Yellow Urine Appearance Clear Urine pH 6.5 (5.0-9.0) Ur Specific [place] 1.025 (1.005-1.025) Urine Protein 100 (2+) H (Neg-Trace) mg/dL Urine Glucose (UA) >=1000 H (Negative) mg/dL Urine Ketones 15 (Negative) mg/dL Urine Blood Negative (Negative) Urine Nitrite Negative (Negative) Ur Leukocyte Esterase Negative (Negative) Urine RBC 0-2 (0-2) /HPF Urine WBC 0-5 (0-5) /HPF Ur Squamous Epith Cells 0-2 (0-2) /HPF Urine Bacteria None Seen (None Seen) Hyaline Casts 0-2 (0-2) /LPF Urine Opiates Screen Not Detected (Not Detect) Urine Fentanyl Screen Not Detected (Not Detect) Ur Barbiturates Screen Not Detected (Not Detect) Ur Phencyclidine Scrn Not Detected (Not Detect) Ur Amphetamines Screen Not Detected (Not Detect) U Benzodiazepines Scrn Not Detected (Not Detect) Urine Cocaine Screen Not Detected (Not Detect) U Marijuana (THC) Screen POSITIVE H (Not Detect) Independent Interpretation I performed an independent interpretation of an: EKG Interpretation: Rate: 77 Rhythm: NSR [place]: normal Normal P waves. Normal TATE. Normal QRS complex. ST T wave : normal no PUNE[place] qTC: normal prior studies: no acute ischemia The study has been interpreted contemporaneously by me. . External Record Review External record reviewed: Inpatient record Prescription Management I considered prescription management with: Other Chronic Conditions Patient?s care impacted by: Diabetes Critical Care Time Critical Care Time Critical Care Time: Yes Total Critical Care Time: 60 Attestation: hyperglycemia and IVF x 2L, monitoring of hypoglycemia, review of records I attest to this time spent taking care of the patient Discharge Plan Discharge Clinical Impression: Cyclical vomiting, Acute hyperglycemia Patient Disposition: Still a Patient Instructions: Diabetic Hyperglycemia (ED), Cyclic Vomiting Syndrome (ED) Additional Instructions: do not take your insulin tonight. you were given nausea medications and fluids in the ED. you may be sleepy from this nausea medication. check your blood sugar before you go to sleep tonight. please follow up with your doctor. Prescriptions: New ondansetron 4 mg tablet,disintegrating 4 mg PO Q8H PRN (Reason: nausea and vomiting) Qty: 20 0RF promethazine 25 mg tablet 25 mg PO TID PRN (Reason: nausea and vomiting) Qty: 20 0RF No Action insulin lispro protamin-lispro 100 unit/mL (75-25) insulin pen 45 unit subcut DAILY Rx Instructions: before meals insulin lispro protamin-lispro 100 unit/mL (75-25) insulin pen 60 unit subcut BEDTIME Rx Instructions: before meals
[2023-07-17] MEDS: diphenhydrAMINE HCL 50 MG/ML VIAL 25 MG IVPUSH (22:32)
[2023-07-17] MEDS: droPERidol 5 MG/2 ML VIAL 1.25 MG IVPUSH (22:32)
[2023-07-17] MEDS: Lactated Ringers 1,000 ML 999 ML IV ×2 (22:33)
[2023-07-17] MEDS: Insulin Regular, Human 100 UNIT/ML 3 ML VIAL IVPUSH (22:34)
--- NOTE | 2023-07-18 00:05 | PC.NURSE ---
POC 33, asymptomatic. Patient reports he took 45 units of Lantus [address] hour prior to arrival. Dr. Ortiz informed, plan to to feed patient and recheck POC. Patient given 120 z of orange juice with sun butter and ham sandwiches. Patient tolerated well, no c/o nausea/vomiting/abdominal pain.
[2023-07-18 00:08] LABS: Glucose, Whole Blood 33 mg/dL (60-115)
[2023-07-18 00:36] LABS: Glucose, Whole Blood 71 mg/dL (60-115)
[2023-07-18 00:37] VITALS: BP 119/80; PULSE 87; RESP 20; TEMP 37; O2SAT 99
--- NOTE | 2023-07-18 00:39 | PC.NURSE ---
POC 71. Dr. Ortiz made aware.
[2023-07-18 00:49] LABS: Appearance Urine Clear; Color Urine Yellow; Glucose Urine UA >=1000 mg/dL (Negative); Leukocyte Esterase Urine Negative (Negative); Nitrite Urine Negative (Negative); PH 6.5 (5.0-9.0); Specific Gravity - Urine 1.025 (1.005-1.025); UMIC TRIGGER UACC YES; Urine Blood Negative (Negative); Urine Ketones 15 mg/dL (Negative); Urine Protein 100 (2+) mg/dL (Neg-Trace)
[2023-07-18 00:51] LABS: Bacteria Urine None Seen (None Seen); Hyaline Casts Urine 0-2 /LPF (0-2); RBC Urine 0-2 /HPF (0-2); Squamous Epithelial Cell Urine 0-2 /HPF (0-2); WBC Urine 0-5 /HPF (0-5)
[2023-07-18 00:56] LABS: Amphetamine Screen Urine Not Detected (Not Detect); Barbiturates, Urine Not Detected (Not Detect); Benzodiazepines Screen Urine Not Detected (Not Detect); Cannabinoid Screen Urine POSITIVE (Not Detect); Cocaine Screen Urine Not Detected (Not Detect); Fentanyl, urine Not Detected (Not Detect); Opiate Screen Urine Not Detected (Not Detect); Phencyclidine Screen Urine Not Detected (Not Detect)
[2023-07-18] MEDS: Lactated Ringers 1,000 ML 100 ML IVCONT (01:10)
[2023-07-18 01:14] LABS: Glucose, Whole Blood 144 mg/dL (60-115)
--- NOTE | 2023-07-18 01:21 | PC.NURSE ---
Recheck POC 144. Dr. Ortiz is aware.
--- NOTE | 2023-07-18 01:25 | PC.NURSE ---
Patient tolerating PO well, no c/o abdominal pain/nausea/vomiting at this time.
[2023-07-18 01:53] LABS: Glucose, Whole Blood 189 mg/dL (60-115)
[2023-07-18 02:20] VITALS: BP 146/96; PULSE 94; RESP 18; TEMP 37.2; O2SAT 99
[2023-07-18 02:42] LABS: Glucose, Whole Blood 207 mg/dL (60-115)
== END 2023-07-18 02:54 | disposition home or self-care (01) ==
PROVIDERS: Emergency Provider Emergency Medicine; PCP Internal Medicine
DX: R11.15 Cyclical vomiting syndrome unrelated to migraine (principal); E11.65 Type 2 diabetes mellitus with hyperglycemia; F12.90 Cannabis use, unspecified, uncomplicated; Z79.4 Long term (current) use of insulin
CPT/HCPCS: 36415; 80053; 80307; 81001; 82010; 82947; 85025; 93005; 96361; 96374; 96375; 99285; J1200; J1790; J7120

== ENCOUNTER → 2023-07-17 22:05 | Outpatient (BNV) | payer OTHER, SELFPAY | PROVIDERS: Emergency Provider Emergency Medicine; PCP Internal Medicine; Visit Provider Internal Medicine Cardiovascular Disease | DX: R00.0 Tachycardia, unspecified (principal) | CPT/HCPCS: 93010 ==

== ENCOUNTER 2023-09-13 14:27 | Emergency (ER) | payer OTHER, SELFPAY ==
[2023-09-13 14:34] VITALS: BP 153/95; PULSE 93; RESP 18; TEMP 37.2; O2SAT 98; BMI 24.8
--- NOTE | 2023-09-13 14:34 | ED.ABDPAIN ---
HPI - Abdominal Pain General Stated Complaint: dka Related Data Home Medications Medication Instructions Recorded Confirmed insulin lispro protamine-lispro 45 unit subcut DAILY 04/30/22 07/13/23 100 unit/mL (75-25) subcutaneous pen insulin lispro protamine-lispro 60 unit subcut BEDTIME 10/31/22 07/13/23 100 unit/mL (75-25) subcutaneous pen Previous Rx's Medication Instructions Recorded ondansetron 4 mg disintegrating 4 mg PO Q8H PRN nausea and 07/18/23 tablet vomiting #20 tabs promethazine 25 mg tablet 25 mg PO TID PRN nausea and 07/18/23 vomiting #20 tabs Allergies Allergy/AdvReac Type Severity Reaction Status Date / Time passion fruit [PASSION FRUIT] Allergy Unknown UNK Verified 07/17/23 20:05 PMFSH Past Medical History Medical History Noncompliance with medication regimen Diabetic gastroparesis 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 Esophageal ulcer Leukocytosis Diabetic keto-acidosis Gastroparesis Diabetes Surgical History No pertinent past surgical history Family History Family History Other No family history of coronary artery disease Social History Social History Household Members: None Household Members Other:: 2 Housing: Apartment Do you presently have visiting nurse or other home services: No Alcohol intake: current Alcohol intake frequency: holidays/special occasions only Alcohol type: hard liquor Comment: pt is low fall risk Patient Tobacco Use Status: Never used Tobacco e-Cigarette/Vaping Use: Former Use Substance Use Type: Marijuana Advance Directives Date on File: 01/22/21 service: No Current occupational status: employed Course Course Course Narrative: This is a rapid medical exam. Deferred additional HPI, ROS, PE to primary provider. 28 yo male with PMH of IDDM, cyclical vomiting, DKA here with complaints of vomiting x 2 days, weakness, abdominal pain and concern for DKA. Will check POC, labs VSS Discharge Plan Discharge Prescriptions: No Action insulin lispro protamin-lispro 100 unit/mL (75-25) insulin pen 45 unit subcut DAILY Rx Instructions: before meals insulin lispro protamin-lispro 100 unit/mL (75-25) insulin pen 60 unit subcut BEDTIME Rx Instructions: before meals ondansetron 4 mg tablet,disintegrating 4 mg PO Q8H PRN (Reason: nausea and vomiting) Qty: 20 0RF promethazine 25 mg tablet 25 mg PO TID PRN (Reason: nausea and vomiting) Qty: 20 0RF
[2023-09-13 14:53] LABS: MANUAL DIFF FLAG NO
[2023-09-13 14:56] LABS: Basophils Percent Auto 0.2 % (0-2); Eosinophils Percent Auto 0.4 % (0-4); Hematocrit 42.7 % (42.0-52.0); Hemoglobin 14.6 g/dl (14.0-18.0); Imm Gran Abs Auto 0.03 X10*3/uL (0.00-0.03); Imm Gran Pct Auto 0.3 % (0.0-0.4); Lymphocytes Absolute Auto 1.3 X10*3/uL (1.2-4.9); Lymphocytes Percent Auto 11.5 % (20-40); Mean Corpuscular HGB Conc 34.2 g/dl (31.0-36.0); Mean Corpuscular Hemoglobin 28.6 pg (27.0-33.0); Mean Corpuscular Volume 83.7 fL (80.0-98.0); Mean Platelet Volume 9.4 fL (9.4-12.4); Monocytes Absolute Auto 1.1 X10*3/uL (0.1-1.2); Monocytes Percent Auto 9.5 % (2-11); Neutrophils Absolute Auto 8.9 x10*3/uL (2.0-8.3); Neutrophils Percent Auto 78.1 % (45-73); Platelet Count 283 X10*3/uL (160-400); Red Cell Distribution Width 12.3 % (11.0-16.0); White Blood Count 11.3 X10*3/uL (4.8-10.8)
[2023-09-13 14:58] LABS: Glucose, Whole Blood 304 mg/dL (60-115)
[2023-09-13 15:11] LABS: COVID-19 Test Negative (Negative); IDNOW Serial# 152EDE1D; IDNOW Serial# 9DB6401D; Influenza A Negative (Negative); Influenza B2 Negative (Negative)
[2023-09-13 15:19] LABS: Alanine Aminotransferase 7 U/L (0-40); Albumin Level 3.9 g/dL (3.5-5.0); Alkaline Phosphatase 74 U/L (39-117); Anion Gap 23 (12-20); Aspartate Amino Transferase 10 U/L (5-37); Bilirubin Direct 0.2 mg/dL (0.0-0.5); Bilirubin Total 0.5 mg/dL (0.0-1.0); Blood Urea Nitrogen 12 mg/dL (9-16); Calcium 9.1 mg/dL (8.4-10.2); Carbon Dioxide 17 mmol/L (22-29); Chloride 95 mmol/L (96-108); Creatinine Clr Calc Pharmacy 74.1; Estimated Glomerular Filt Rate > 60; Glucose Random 308 mg/dL (60-115); Potassium 5.1 mmol/L (3.3-5.1); Sodium 130 mmol/L (135-145); Total Protein 6.9 g/dL (6.5-8.0)
== END 2023-09-13 22:46 | disposition left against medical advice (07) ==
LOC: HO.ED 22:31
PROVIDERS: Nurse Practitioner Family; Emergency Provider Emergency Medicine; PCP Internal Medicine
DX: R10.9 Unspecified abdominal pain (principal); R11.10 Vomiting, unspecified; R53.1 Weakness; Z11.52 Encounter for screening for COVID-19
CPT/HCPCS: 80048; 80076; 82947; 85025; 87502; 87635; 99281; 99283

== ENCOUNTER 2023-09-14 03:17 | Emergency (ER) | payer OTHER, SELFPAY ==
[2023-09-14 04:00] VITALS: BP 174/112; PULSE 92; RESP 16; TEMP 36.7; O2SAT 100; BMI 24.5
[2023-09-14 04:20] LABS: MANUAL DIFF FLAG NO
[2023-09-14 04:23] LABS: Basophils Percent Auto 0.3 % (0-2); Eosinophils Absolute Auto 0.1 X10*3/uL (0.0-0.4); Eosinophils Percent Auto 0.6 % (0-4); Hematocrit 44.1 % (42.0-52.0); Imm Gran Abs Auto 0.04 X10*3/uL (0.00-0.03); Imm Gran Pct Auto 0.5 % (0.0-0.4); Lymphocytes Absolute Auto 1.4 X10*3/uL (1.2-4.9); Lymphocytes Percent Auto 15.9 % (20-40); Mean Corpuscular Hemoglobin 28.5 pg (27.0-33.0); Mean Corpuscular Volume 83.8 fL (80.0-98.0); Mean Platelet Volume 9.7 fL (9.4-12.4); Monocytes Absolute Auto 0.9 X10*3/uL (0.1-1.2); Monocytes Percent Auto 10.7 % (2-11); Neutrophils Absolute Auto 6.3 x10*3/uL (2.0-8.3); Platelet Count 297 X10*3/uL (160-400); Red Blood Count 5.26 X10*6/uL (4.60-5.80); Red Cell Distribution Width 12.3 % (11.0-16.0); White Blood Count 8.8 X10*3/uL (4.8-10.8)
[2023-09-14 04:45] LABS: Alanine Aminotransferase 7 U/L (0-40); Alkaline Phosphatase 75 U/L (39-117); Anion Gap 22 (12-20); Aspartate Amino Transferase 11 U/L (5-37); Bilirubin Total 0.5 mg/dL (0.0-1.0); Blood Urea Nitrogen 13 mg/dL (9-16); Calcium 9.3 mg/dL (8.4-10.2); Carbon Dioxide 16 mmol/L (22-29); Chloride 96 mmol/L (96-108); Estimated Glomerular Filt Rate 58; Glucose Random 309 mg/dL (60-115); Sodium 129 mmol/L (135-145); Total Protein 7.1 g/dL (6.5-8.0)
[2023-09-14 05:39] VITALS: BP 185/102; PULSE 103; RESP 18; O2SAT 100
[2023-09-14 05:40] VITALS: BP 158/105; PULSE 103; RESP 18
[2023-09-14 05:48] LABS: Glucose, Whole Blood 304 mg/dL (60-115)
--- NOTE | 2023-09-14 05:54 | MHC.EDTECH ---
This Tech assumed care of this PT upon arrival. Pt changed over into a hospital gown and placed on a clinical specialty rep. Elevated BP reported to ALMA Friend. POC 304
[2023-09-14] MEDS: 0.9 % Sodium Chloride 1,000 ML 999 ML IV (06:06)
--- NOTE | 2023-09-14 06:10 | PC.NURSE ---
Assumed care off pt. Pt endorsing intractable pain, refused ordered droperidol stating they usually give me Morphine and Zofran . MD aware.
[2023-09-14 06:26] LABS: VBG Base Excess -7.1 mmol/L; VBG HCO3 16 mmol/L (22-26); VBG pCO2 26 mmHg; VBG pH 7.38 (7.32-7.43); VBG pO2 36 mmHg
[2023-09-14 06:28] LABS: Venous Blood Gas Refer to POC result
[2023-09-14 06:33] LABS: Beta-Hydroxybutyrate 6.55 mmol/L (0.02-0.27)
[2023-09-14] MEDS: droPERidol 5 MG/2 ML VIAL 2.5 MG IVPUSH (06:53)
[2023-09-14] MEDS: Morphine Sulfate 4 MG/ML CARTRIDGE IVPUSH (06:53)
--- NOTE | 2023-09-14 07:13 | ED_ITS ---
HPI - General Adult General Chief complaint: Abdominal Pain Stated complaint: pt claims possible dka Time Seen by Provider: 09/14/23 05:56 History of Present Illness HPI narrative: The patient is a 28-year-old man with diabetes. Past medical records referred to him ultimately is having type 1 or type 2 diabetes. He is on lispro insulin. He says that he has been feeling unwell for about 2 days. He says that he has abdominal pain typical of his usual DKA episodes. He says he has had nausea and vomiting. He says all of his symptoms are similar to his previous presentations for which he is usually admitted to the hospital and treated for possible DKA. He has not forthcoming with significant additional information. Related Data Home Medications Medication Instructions Recorded Confirmed insulin lispro protamine-lispro 45 unit subcut DAILY 04/30/22 07/13/23 100 unit/mL (75-25) subcutaneous pen insulin lispro protamine-lispro 60 unit subcut BEDTIME 10/31/22 07/13/23 100 unit/mL (75-25) subcutaneous pen Previous Rx's Medication Instructions Recorded ondansetron 4 mg disintegrating 4 mg PO Q8H PRN nausea and 07/18/23 tablet vomiting #20 tabs promethazine 25 mg tablet 25 mg PO TID PRN nausea and 07/18/23 vomiting #20 tabs Allergies Allergy/AdvReac Type Severity Reaction Status Date / Time passion fruit [PASSION FRUIT] Allergy Unknown UNK Verified 09/13/23 14:37 Review of Systems 2 Review of Systems: Yes all other systems are reviewed and are negative PMFSH Past Medical History Medical History Noncompliance with medication regimen Diabetic gastroparesis 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 Esophageal ulcer Leukocytosis Diabetic keto-acidosis Gastroparesis Diabetes Surgical History No pertinent past surgical history Family History Family History Other No family history of coronary artery disease Social History Social History Household Members: None Household Members Other:: 2 Housing: Apartment Do you presently have visiting nurse or other home services: No Alcohol intake: current Alcohol intake frequency: holidays/special occasions only Alcohol type: hard liquor Comment: pt is low fall risk Patient Tobacco Use Status: Never used Tobacco Smoked in Last 30 Days: No e-Cigarette/Vaping Use: Former Use Use of substances other than those prescribed or required for medical reasons: Yes Substance Use Type: Marijuana Substance Use Frequency: Chronic Longstanding Advance Directives: Yes Advance Directives on File: Yes Advance Directives Date on File: 01/22/21 service: No Current occupational status: employed Physical Exam ED Vital Signs: Vital Signs - 24 hr 09/14/23 04:00 09/14/23 05:39 09/14/23 05:40 Temperature 98.0 F Pulse Rate 92 103 H 103 H Respiratory Rate 16 18 18 Blood Pressure 174/112 H 185/102 H 158/105 H Pulse Oximetry 100 100 Oxygen Delivery Method Room Air Room Air BMI result Body Mass Index 24.5 Const Other: The patient was awake and alert. He does not seem in obvious distress. He did not seem to exhibit a significant increased work of breathing or increased respiratory rate. He had a sullen demeanor. HENMT Other: The face is symmetrical. Mucous membranes not obviously dry. Eyes Other: Pupils are round equal, conjunctivae are clear, extraocular movements intact Neck Other: Moving his neck easily Resp Other: No obvious Kussmaul breathing Effort & Inspection: normal respiratory effort Auscultation: clear to auscultation bilaterally Cardio Rate: regular rate Rhythm: regular rhythm Heart sounds: S1 normal heart sound present and S2 normal heart sound present GI Other: The abdomen is soft. There is diffuse tenderness but no focal tenderness or rebound. Skin Other: Skin is warm and dry Neuro Other: The patient is awake and alert. Speech is clear. Face is symmetrical. Moving his extremities symmetrically. Grossly neurologically intact. Extrem Other: No peripheral edema Medications Administered Discontinued Medications Generic Name Dose Route Start Last Admin Trade Name Freq PRN Reason Stop Dose Admin Droperidol 2.5 mg 09/14/23 06:02 09/14/23 06:53 Droperidol 5 Mg/2 Ml Vial IVPUSH 09/14/23 06:03 2.5 mg ONCE ONE Administration Sodium Chloride 1,000 mls @ 999 mls/hr 09/14/23 06:00 09/14/23 07:04 Ns IV 09/14/23 07:00 Infused .Q1H1M DESTINY Infusion Morphine Sulfate 4 mg 09/14/23 06:43 09/14/23 06:53 Morphine Sulfate 4 Mg/Ml Cartridge IVPUSH 09/14/23 06:44 4 mg ONCE ONE Administration Protocol Medical Decision Making Medical Decision Making [facility] Narrative: The patient is a 28-year-old male who use his lispro insulin for his diabetes. Previous hospital records sometimes referred to him as having type 1 diabetes and sometimes as type 2 diabetes. He has been hospitalized many times for possible diabetic ketoacidosis. A review of old records show that most of his blood gases did not show a significantly acidotic pH and most of his metabolic panels drop in his bicarb. Today the patient has a CBC that shows a white count of 8.8, hematocrit 44.1, platelet count of 297, and no left shift. His metabolic panel shows a sodium of 129, creatinine 5.0, carbon dioxide of 16, anion gap of 22, creatinine of 1.45. Venous blood gas shows a pH of 7.38, pCO2 of 26. Beta hydroxybutyrate is elevated at 6.55. The patient is presentation is puzzling. His beta hydroxybutyrate is elevated and his serum carbon dioxide is mildly low at 16. However his pH 7.38 and his anion gap is only minimally elevated at 22. Review of previous hospitalizations for which he has been given the diagnosis of DKA also do not show more severe metabolic derangements. The patient will be signed out to [facility] emergency physician. The patient will be given IV fluids and insulin and additional labs will be repeated. Lab Data 09/14/23 04:01 09/14/23 04:01 Labs: Lab Results 09/14/23 09/14/23 09/14/23 Range/Units 04:01 05:42 06:17 WBC 8.8 (4.8-10.8) X10*3/uL RBC 5.26 (4.60-5.80) X10*6/uL Hgb 15.0 (14.0-18.0) g/dl Hct 44.1 (42.0-52.0) % MCV 83.8 (80.0-98.0) fL MCH 28.5 (27.0-33.0) pg MCHC 34.0 (31.0-36.0) g/dl RDW 12.3 (11.0-16.0) % Plt Count 297 (160-400) X10*3/uL MPV 9.7 (9.4-12.4) fL Immature Gran % (Auto) 0.5 H (0.0-0.4) % Neut % (Auto) 72.0 (45-73) % Lymph % (Auto) 15.9 L (20-40) % Meade % (Auto) 10.7 (2-11) % Eos % (Auto) 0.6 (0-4) % Baso % (Auto) 0.3 (0-2) % Lymph # (Auto) 1.4 (1.2-4.9) X10*3/uL Meade # (Auto) 0.9 (0.1-1.2) X10*3/uL Eos # (Auto) 0.1 (0.0-0.4) X10*3/uL Baso # (Auto) 0.0 (0.0-0.2) X10*3/uL Abs Immat Gran (auto) 0.04 H (0.00-0.03) X10*3/uL Absolute Neuts (auto) 6.3 (2.0-8.3) x10*3/uL Absolute Nucleated RBC 0.000 (0.0-0.012) X10*3/uL Nucleated RBC % (auto) 0.0 (0.0-0.2) /100WBC VBG pH 7.38 (7.32-7.43) VBG pCO2 26 mmHg VBG pO2 36 mmHg VBG HCO3 16 L (22-26) mmol/L VBG O2 Saturation 62.0 % VBG Base Excess -7.1 mmol/L Sodium 129 L (135-145) mmol/L Potassium 5.0 (3.3-5.1) mmol/L Chloride 96 (96-108) mmol/L Carbon Dioxide 16 L (22-29) mmol/L Anion Gap 22 H (12-20) BUN 13 (9-16) mg/dL Creatinine 1.45 H (0.5-1.4) mg/dL Estim Creat Clear Calc 69.0 Estimated GFR 58 POC Glucose 304 H (60-115) mg/dL Random Glucose 309 H (60-115) mg/dL Calcium 9.3 (8.4-10.2) mg/dL Total Bilirubin 0.5 (0.0-1.0) mg/dL AST 11 (5-37) U/L ALT 7 (0-40) U/L Alkaline Phosphatase 75 (39-117) U/L Total Protein 7.1 (6.5-8.0) g/dL Albumin 4.0 (3.5-5.0) g/dL Beta-Hydroxybutyrate 6.55 H (0.02-0.27) mmol/L 09/14/23 Range/Units 07:23 WBC (4.8-10.8) X10*3/uL RBC (4.60-5.80) X10*6/uL Hgb (14.0-18.0) g/dl Hct (42.0-52.0) % MCV (80.0-98.0) fL MCH (27.0-33.0) pg MCHC (31.0-36.0) g/dl RDW (11.0-16.0) % Plt Count (160-400) X10*3/uL MPV (9.4-12.4) fL Immature Gran % (Auto) (0.0-0.4) % Neut % (Auto) (45-73) % Lymph % (Auto) (20-40) % Meade % (Auto) (2-11) % Eos % (Auto) (0-4) % Baso % (Auto) (0-2) % Lymph # (Auto) (1.2-4.9) X10*3/uL Meade # (Auto) (0.1-1.2) X10*3/uL Eos # (Auto) (0.0-0.4) X10*3/uL Baso # (Auto) (0.0-0.2) X10*3/uL Abs Immat Gran (auto) (0.00-0.03) X10*3/uL Absolute Neuts (auto) (2.0-8.3) x10*3/uL Absolute Nucleated RBC (0.0-0.012) X10*3/uL Nucleated RBC % (auto) (0.0-0.2) /100WBC VBG pH (7.32-7.43) VBG pCO2 mmHg VBG pO2 mmHg VBG HCO3 (22-26) mmol/L VBG O2 Saturation % VBG Base Excess mmol/L Sodium (135-145) mmol/L Potassium (3.3-5.1) mmol/L Chloride (96-108) mmol/L Carbon Dioxide (22-29) mmol/L Anion Gap (12-20) BUN (9-16) mg/dL Creatinine (0.5-1.4) mg/dL Estim Creat Clear Calc Estimated GFR POC Glucose 256 H (60-115) mg/dL Random Glucose (60-115) mg/dL Calcium (8.4-10.2) mg/dL Total Bilirubin (0.0-1.0) mg/dL AST (5-37) U/L ALT (0-40) U/L Alkaline Phosphatase (39-117) U/L Total Protein (6.5-8.0) g/dL Albumin (3.5-5.0) g/dL Beta-Hydroxybutyrate (0.02-0.27) mmol/L Discharge Plan Discharge Clinical Impression: Acute hyperglycemia, Elevated beta-hydroxybutyrate Patient Disposition: Still a Patient Prescriptions: No Action insulin lispro protamin-lispro 100 unit/mL (75-25) insulin pen 45 unit subcut DAILY Rx Instructions: before meals insulin lispro protamin-lispro 100 unit/mL (75-25) insulin pen 60 unit subcut BEDTIME Rx Instructions: before meals ondansetron 4 mg tablet,disintegrating 4 mg PO Q8H PRN (Reason: nausea and vomiting) Qty: 20 0RF promethazine 25 mg tablet 25 mg PO TID PRN (Reason: nausea and vomiting) Qty: 20 0RF
[2023-09-14 07:27] LABS: Glucose, Whole Blood 256 mg/dL (60-115)
[2023-09-14] MEDS: Lactated Ringers 1,000 ML 999 ML IV ×2 (07:53→08:55)
--- NOTE | 2023-09-14 08:00 | PC.NURSE ---
poc rechecked, 256. at this time plan to hold insulin and infuse fluids. LR running at this time, patient reporting improvement in pain after morphine. resting quietly in room with even and unlabored respirations, call wyatt within reach.
[2023-09-14 08:11] VITALS: PULSE 80; RESP 18
--- NOTE | 2023-09-14 08:58 | PC.NURSE ---
second LR infusing at this time, patient states he is feeling better at this time. call wyatt within reach
[2023-09-14 09:15] LABS: Anion Gap 19 (12-20); Blood Urea Nitrogen 13 mg/dL (9-16); Calcium 8.7 mg/dL (8.4-10.2); Carbon Dioxide 17 mmol/L (22-29); Chloride 100 mmol/L (96-108); Creatinine Clr Calc Pharmacy 76.4; Estimated Glomerular Filt Rate > 60; Glucose Random 270 mg/dL (60-115); Potassium 4.4 mmol/L (3.3-5.1); Sodium 132 mmol/L (135-145)
[2023-09-14] MEDS: LORazepam 0.5 MG TABLET PO (09:51)
== END 2023-09-14 10:41 | disposition home or self-care (01) ==
PROVIDERS: Emergency Medicine; Emergency Provider Emergency Medicine
DX: E11.65 Type 2 diabetes mellitus with hyperglycemia (principal); Z79.4 Long term (current) use of insulin
CPT/HCPCS: 36415; 80048; 80053; 82010; 82803; 82947; 85025; 96361; 96374; 96375; 99285; J1790; J2270; J7120

== ENCOUNTER 2023-10-08 12:46 | Emergency (ER) | payer OTHER, SELFPAY ==
[2023-10-08 13:09] VITALS: BP 130/90; PULSE 128; RESP 16; TEMP 37; O2SAT 97; BMI 24.3
--- NOTE | 2023-10-08 13:09 | ED_ITS ---
HPI - General Adult General Stated complaint: vomiting high bs Related Data Home Medications Medication Instructions Recorded Confirmed insulin lispro protamine-lispro 45 unit subcut DAILY 04/30/22 07/13/23 100 unit/mL (75-25) subcutaneous pen insulin lispro protamine-lispro 60 unit subcut BEDTIME 10/31/22 07/13/23 100 unit/mL (75-25) subcutaneous pen Previous Rx's Medication Instructions Recorded ondansetron 4 mg disintegrating 4 mg PO Q8H PRN nausea and 07/18/23 tablet vomiting #20 tabs promethazine 25 mg tablet 25 mg PO TID PRN nausea and 07/18/23 vomiting #20 tabs Allergies Allergy/AdvReac Type Severity Reaction Status Date / Time passion fruit [PASSION FRUIT] Allergy Unknown UNK Verified 09/13/23 14:37 [facility] Past Medical History Medical History Noncompliance with medication regimen Diabetic gastroparesis 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 Esophageal ulcer Leukocytosis Diabetic keto-acidosis Gastroparesis Diabetes Surgical History No pertinent past surgical history Family History Family History Other No family history of coronary artery disease Social History Social History Household Members: None Household Members Other:: 2 Housing: Apartment Do you presently have visiting nurse or other home services: No Alcohol intake: current Alcohol intake frequency: holidays/special occasions only Alcohol type: hard liquor Comment: pt is low fall risk Patient Tobacco Use Status: Never used Tobacco e-Cigarette/Vaping Use: Former Use Substance Use Type: Marijuana Advance Directives Date on File: 01/22/21 service: No Current occupational status: employed Course Course Course Narrative: RME- 28 year old male presents for evaluation of vomiting and abdominal pain. He believes he may be in DKA. Plan for labs, UA Discharge Plan Discharge Prescriptions: No Action insulin lispro protamin-lispro 100 unit/mL (75-25) insulin pen 45 unit subcut DAILY Rx Instructions: before meals insulin lispro protamin-lispro 100 unit/mL (75-25) insulin pen 60 unit subcut BEDTIME Rx Instructions: before meals ondansetron 4 mg tablet,disintegrating 4 mg PO Q8H PRN (Reason: nausea and vomiting) Qty: 20 0RF promethazine 25 mg tablet 25 mg PO TID PRN (Reason: nausea and vomiting) Qty: 20 0RF
[2023-10-08 15:32] LABS: MANUAL DIFF FLAG NO
[2023-10-08 15:34] LABS: Basophils Percent Auto 0.2 % (0-2); Hematocrit 47.9 % (42.0-52.0); Hemoglobin 16.3 g/dl (14.0-18.0); Imm Gran Abs Auto 0.07 X10*3/uL (0.00-0.03); Imm Gran Pct Auto 0.4 % (0.0-0.4); Lymphocytes Absolute Auto 1.8 X10*3/uL (1.2-4.9); Lymphocytes Percent Auto 10.5 % (20-40); Mean Corpuscular Hemoglobin 28.3 pg (27.0-33.0); Mean Corpuscular Volume 83.2 fL (80.0-98.0); Monocytes Absolute Auto 1.4 X10*3/uL (0.1-1.2); Monocytes Percent Auto 8.4 % (2-11); Neutrophils Absolute Auto 13.7 x10*3/uL (2.0-8.3); Neutrophils Percent Auto 80.5 % (45-73); Platelet Count 327 X10*3/uL (160-400); Red Blood Count 5.76 X10*6/uL (4.60-5.80); Red Cell Distribution Width 12.8 % (11.0-16.0)
[2023-10-08 15:49] LABS: Alanine Aminotransferase 14 U/L (0-40); Albumin Level 4.4 g/dL (3.5-5.0); Alkaline Phosphatase 83 U/L (39-117); Anion Gap 24 (12-20); Aspartate Amino Transferase 14 U/L (5-37); Bilirubin Total 0.5 mg/dL (0.0-1.0); Blood Urea Nitrogen 27 mg/dL (9-16); Calcium 10.2 mg/dL (8.4-10.2); Carbon Dioxide 25 mmol/L (22-29); Chloride 96 mmol/L (96-108); Creatinine Clr Calc Pharmacy 54.1; Estimated Glomerular Filt Rate 44; Glucose Random 385 mg/dL (60-115); Lipase 16 U/L (8-78); Potassium 4.1 mmol/L (3.3-5.1); Sodium 141 mmol/L (135-145); Total Protein 7.9 g/dL (6.5-8.0)
[2023-10-08 18:21] VITALS: BP 144/90; PULSE 114; RESP 18; TEMP 36.7; O2SAT 100
--- NOTE | 2023-10-08 18:37 | ED_ITS ---
HPI - General Adult General Chief complaint: General Medical Stated complaint: vomiting high bs Time Seen by Provider: 10/08/23 18:30 Source: patient Mode of arrival: ambulatory Limitations: no limitations History of Present Illness HPI narrative: 28-year-old male history of diabetes presents for nausea and vomiting since yesterday which area his ususal symptoms of DKA. Patient states taking Humalog and Lantus and has not missed a dose. Patient denies any URI symptoms. Related Data Home Medications Medication Instructions Recorded Confirmed insulin lispro protamine-lispro 45 unit subcut DAILY 04/30/22 07/13/23 100 unit/mL (75-25) subcutaneous pen insulin lispro protamine-lispro 60 unit subcut BEDTIME 10/31/22 07/13/23 100 unit/mL (75-25) subcutaneous pen Previous Rx's Medication Instructions Recorded ondansetron 4 mg disintegrating 4 mg PO Q8H PRN nausea and 07/18/23 tablet vomiting #20 tabs promethazine 25 mg tablet 25 mg PO TID PRN nausea and 07/18/23 vomiting #20 tabs Allergies Allergy/AdvReac Type Severity Reaction Status Date / Time passion fruit [PASSION FRUIT] Allergy Unknown UNK Verified 10/08/23 13:17 Review of Systems 2 Review of Systems: Nausea and vomit Yes all other systems are reviewed and are negative PMFSH Past Medical History Medical History Noncompliance with medication regimen Diabetic gastroparesis 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 Esophageal ulcer Leukocytosis Diabetic keto-acidosis Gastroparesis Diabetes Surgical History No pertinent past surgical history Family History Family History Other No family history of coronary artery disease Social History Social History Household Members: None Household Members Other:: 2 Housing: Apartment Do you presently have visiting nurse or other home services: No Alcohol intake: current Alcohol intake frequency: holidays/special occasions only Alcohol type: hard liquor Comment: pt is low fall risk Patient Tobacco Use Status: Never used Tobacco Smoked in Last 30 Days: No e-Cigarette/Vaping Use: Former Use Use of substances other than those prescribed or required for medical reasons: Yes Substance Use Type: Marijuana Substance Use Frequency: Daily Last Used Substance: Days (ago) Advance Directives: Yes Advance Directives on File: Yes Advance Directives Date on File: 01/22/21 service: No Current occupational status: employed Physical Exam ED Vital Signs: Vital Signs - 24 hr 10/08/23 13:09 10/08/23 18:21 10/08/23 19:14 Temperature 98.6 F 98.0 F 97.6 F Pulse Rate 128 H 114 H 107 H Respiratory Rate 16 18 16 Blood Pressure 130/90 H 144/90 H 157/97 H Pulse Oximetry 97 100 100 Oxygen Delivery Method Room Air Room Air Room Air 10/08/23 21:52 10/08/23 23:53 Temperature 97.6 F Pulse Rate 103 H 100 Respiratory Rate 16 16 Blood Pressure 124/58 L 121/77 Pulse Oximetry 98 98 Oxygen Delivery Method Room Air Room Air BMI result Body Mass Index 24.3 Const General: cooperative, healthy appearing, comfortable, no acute distress, well developed, alert, awake and Physically active Orientation/consciousness: oriented to person, oriented to place, oriented to time and patient oriented x3 HENMT Head: Yes normal to inspection, Yes No palpable skull fracture present, Yes normocephalic, Yes atraumatic and No abrasion Eyes General: appearance normal, both eyes and all related structures Neck Neck: Yes normal visual inspection, Yes full ROM, Yes no lymphadenopathy, Yes no meningeal signs, Yes trachea midline, Yes supple, No anterior neck swelling and No tender Chest Chest palpation & inspection: normal inspection of the chest and normal palpation of entire chest wall Resp Effort & Inspection: normal respiratory effort and able to speak in complete sentences Auscultation: clear to auscultation bilaterally Cardio Jugular venous distension: no JVD Heart sounds: S1 normal heart sound present and S2 normal heart sound present GI Inspection: Yes normal to inspection Palpation (GI): Soft to palpation, not firm, nontender, no guarding and not rigid General: Yes no CVA tenderness Back/Spine/Pelvis Back: no CVA tenderness and No back tenderness Skin General skin exam: no rashes or lesions noted, elasticity normal and turgor normal Neuro General: oriented to person, oriented to place, oriented to time, patient oriented x3, gait normal, tone normal, moves all extremities, Normal light touch and pain sensation, no meningeal signs, no focal motor deficits, CN's II-XI intact bilaterally and normal sensation to monofilament Extrem General: Yes normal to inspection and Yes full ROM Psych Appearance: grossly normal, well kempt and not disheveled Medications Administered Discontinued Medications Generic Name Dose Route Start Last Admin Trade Name Roger PRN Reason Stop Dose Admin Dextrose 25 gm 10/08/23 20:01 10/08/23 20:05 Dextrose 50 % 25 Gm/50 Ml Syringe IVPUSH 10/08/23 20:02 25 gm ONCE ONE Administration Sodium Chloride 1,000 mls @ 999 mls/hr 10/08/23 18:30 10/08/23 20:10 Ns IV 10/08/23 19:30 Infused .Q1H1M STA Infusion Sodium Chloride 1,000 mls @ 999 mls/hr 10/08/23 18:31 10/08/23 20:09 Ns IV 10/08/23 19:31 Infused .Q1H1M STA Infusion Sodium Chloride 1,000 mls @ 999 mls/hr 10/08/23 18:31 10/08/23 20:10 Ns IV 10/08/23 19:31 Infused .Q1H1M STA Infusion Insulin Human Regular 10 unit 10/08/23 18:31 10/08/23 18:41 Insulin Regular, Human 100 Unit/Ml 3 Ml Vial IVPUSH 10/08/23 18:32 10 unit ONCE ONE Administration Morphine Sulfate 4 mg 10/08/23 19:09 10/08/23 19:12 Morphine Sulfate 4 Mg/Ml Cartridge IVPUSH 10/08/23 19:10 4 mg ONCE ONE Administration Protocol Ondansetron HCl 4 mg 10/08/23 18:59 10/08/23 19:08 Ondansetron Hcl 4 Mg/2 Ml Vial IVPUSH 10/08/23 19:00 4 mg ONCE ONE Administration Medical Decision Making Medical Decision Making MDM Narrative: 28-year-old male history of diabetes known history of DKA presents to ED for nausea and vomiting. Initial labs showed mild DKA. Patient [place] repeat labs to see if anion gap resolved DKA resolved. 10:24pm: Patient case was discussed with Dr. Lincoln who recommend patient be admitted. Patient does not want to be admitted and would like to be discharged. Patient feels fine. Patient agreeable to sign against medical advice knowing the risk of from DKA and other etiologies. Patient was informed 1st troponin was 32 will need a repeat. Patient agreeable for 2nd troponin to be drawn normalize he will leave against medical advice. 11:19pm: patient still signed out AMA. Differential Diagnosis Differential Diagnoses: The differential diagnosis associated with the presentation includes (, hyperglycemia, hyperosmolar, DKA) Admission/Observation Consideration of admission/observation: Escalation of care including admission/observation considered Consult Healthcare Provider Management of the patient was discussed with: Hospitalist (Dr. Vaughn) Lab Data MDM Lab Attestation statement: I reviewed the patient's lab results. 10/08/23 15:28 10/08/23 20:40 Labs: Lab Results 10/08/23 10/08/23 10/08/23 Range/Units 15:28 19:03 19:30 WBC 17.0 H (4.8-10.8) X10*3/uL RBC 5.76 (4.60-5.80) X10*6/uL Hgb 16.3 (14.0-18.0) g/dl Hct 47.9 (42.0-52.0) % MCV 83.2 (80.0-98.0) fL MCH 28.3 (27.0-33.0) pg MCHC 34.0 (31.0-36.0) g/dl RDW 12.8 (11.0-16.0) % Plt Count 327 (160-400) X10*3/uL MPV 10.0 (9.4-12.4) fL Immature Gran % (Auto) 0.4 (0.0-0.4) % Neut % (Auto) 80.5 H (45-73) % Lymph % (Auto) 10.5 L (20-40) % [place] % (Auto) 8.4 (2-11) % Eos % (Auto) 0.0 (0-4) % Baso % (Auto) 0.2 (0-2) % Lymph # (Auto) 1.8 (1.2-4.9) X10*3/uL [place] # (Auto) 1.4 H (0.1-1.2) X10*3/uL Eos # (Auto) 0.0 (0.0-0.4) X10*3/uL Baso # (Auto) 0.0 (0.0-0.2) X10*3/uL Abs Immat Gran (auto) 0.07 H (0.00-0.03) X10*3/uL Absolute Neuts (auto) 13.7 H (2.0-8.3) x10*3/uL Absolute Nucleated RBC 0.000 (0.0-0.012) X10*3/uL Nucleated RBC % (auto) 0.0 (0.0-0.2) /100WBC VBG pH (7.32-7.43) VBG pCO2 mmHg VBG pO2 mmHg VBG HCO3 (22-26) mmol/L VBG O2 Saturation % VBG Base Excess mmol/L Sodium 141 (135-145) mmol/L Potassium 4.1 (3.3-5.1) mmol/L Chloride 96 (96-108) mmol/L Carbon Dioxide 25 (22-29) mmol/L Anion Gap 24 H (12-20) BUN 27 H (9-16) mg/dL Creatinine 1.85 H (0.5-1.4) mg/dL Estim Creat Clear Calc 54.1 Estimated GFR 44 POC Glucose 173 H (60-115) mg/dL Random Glucose 385 H* (60-115) mg/dL Calcium 10.2 D (8.4-10.2) mg/dL Total Bilirubin 0.5 (0.0-1.0) mg/dL AST 14 (5-37) U/L ALT 14 (0-40) U/L Alkaline Phosphatase 83 (39-117) U/L Troponin I High Sens 32.6 D (<3.5-35.0) ng/L Total Protein 7.9 (6.5-8.0) g/dL Albumin 4.4 (3.5-5.0) g/dL Lipase 16 (8-78) U/L Beta-Hydroxybutyrate 4.00 H (0.02-0.27) mmol/L 10/08/23 10/08/23 10/08/23 Range/Units 20:00 20:30 20:40 WBC (4.8-10.8) X10*3/uL RBC (4.60-5.80) X10*6/uL Hgb (14.0-18.0) g/dl Hct (42.0-52.0) % MCV (80.0-98.0) fL MCH (27.0-33.0) pg MCHC (31.0-36.0) g/dl RDW (11.0-16.0) % Plt Count (160-400) X10*3/uL MPV (9.4-12.4) fL Immature Gran % (Auto) (0.0-0.4) % Neut % (Auto) (45-73) % Lymph % (Auto) (20-40) % [place] % (Auto) (2-11) % Eos % (Auto) (0-4) % Baso % (Auto) (0-2) % Lymph # (Auto) (1.2-4.9) X10*3/uL [place] # (Auto) (0.1-1.2) X10*3/uL Eos # (Auto) (0.0-0.4) X10*3/uL Baso # (Auto) (0.0-0.2) X10*3/uL Abs Immat Gran (auto) (0.00-0.03) X10*3/uL Absolute Neuts (auto) (2.0-8.3) x10*3/uL Absolute Nucleated RBC (0.0-0.012) X10*3/uL Nucleated RBC % (auto) (0.0-0.2) /100WBC VBG pH (7.32-7.43) VBG pCO2 mmHg VBG pO2 mmHg VBG HCO3 (22-26) mmol/L VBG O2 Saturation % VBG Base Excess mmol/L Sodium 145 (135-145) mmol/L Potassium 3.7 (3.3-5.1) mmol/L Chloride 110 H (96-108) mmol/L Carbon Dioxide 27 (22-29) mmol/L Anion Gap 12 (12-20) BUN 30 H (9-16) mg/dL Creatinine 1.28 (0.5-1.4) mg/dL Estim Creat Clear Calc 78.2 Estimated GFR > 60 POC Glucose 67 137 H (60-115) mg/dL Random Glucose 149 H (60-115) mg/dL Calcium 8.6 D (8.4-10.2) mg/dL Total Bilirubin (0.0-1.0) mg/dL AST (5-37) U/L ALT (0-40) U/L Alkaline Phosphatase (39-117) U/L Troponin I High Sens (<3.5-35.0) ng/L Total Protein (6.5-8.0) g/dL Albumin (3.5-5.0) g/dL Lipase (8-78) U/L Beta-Hydroxybutyrate (0.02-0.27) mmol/L 10/08/23 10/08/23 Range/Units 20:41 22:38 WBC (4.8-10.8) X10*3/uL RBC (4.60-5.80) X10*6/uL Hgb (14.0-18.0) g/dl Hct (42.0-52.0) % MCV (80.0-98.0) fL MCH (27.0-33.0) pg MCHC (31.0-36.0) g/dl RDW (11.0-16.0) % Plt Count (160-400) X10*3/uL MPV (9.4-12.4) fL Immature Gran % (Auto) (0.0-0.4) % Neut % (Auto) (45-73) % Lymph % (Auto) (20-40) % [place] % (Auto) (2-11) % Eos % (Auto) (0-4) % Baso % (Auto) (0-2) % Lymph # (Auto) (1.2-4.9) X10*3/uL [place] # (Auto) (0.1-1.2) X10*3/uL Eos # (Auto) (0.0-0.4) X10*3/uL Baso # (Auto) (0.0-0.2) X10*3/uL Abs Immat Gran (auto) (0.00-0.03) X10*3/uL Absolute Neuts (auto) (2.0-8.3) x10*3/uL Absolute Nucleated RBC (0.0-0.012) X10*3/uL Nucleated RBC % (auto) (0.0-0.2) /100WBC VBG pH 7.45 H (7.32-7.43) VBG pCO2 39 mmHg VBG pO2 77 mmHg VBG HCO3 27 H (22-26) mmol/L VBG O2 Saturation 96.0 % VBG Base Excess 3.4 mmol/L Sodium (135-145) mmol/L Potassium (3.3-5.1) mmol/L Chloride (96-108) mmol/L Carbon Dioxide (22-29) mmol/L Anion Gap (12-20) BUN (9-16) mg/dL Creatinine (0.5-1.4) mg/dL Estim Creat Clear Calc Estimated GFR POC Glucose (60-115) mg/dL Random Glucose (60-115) mg/dL Calcium (8.4-10.2) mg/dL Total Bilirubin (0.0-1.0) mg/dL AST (5-37) U/L ALT (0-40) U/L Alkaline Phosphatase (39-117) U/L Troponin I High Sens 33.4 (<3.5-35.0) ng/L Total Protein (6.5-8.0) g/dL Albumin (3.5-5.0) g/dL Lipase (8-78) U/L Beta-Hydroxybutyrate (0.02-0.27) mmol/L Independent Interpretation I performed an independent interpretation of an: EKG (Sinus tachycardia. negative STEMI) Independent Historian Clinical information obtained from an independent historian. History obtained from or confirmed by: Other (patient) External Record Review External record reviewed: Other (Prior vistis) Prescription Management I considered prescription management with: Other Discharge Plan Discharge Clinical Impression: DKA (diabetic ketoacidosis) Patient Disposition: Left Against Medical Advice Instructions: Diabetic Hyperglycemia (ED) Additional Instructions: Return to the ED immediately for any weakness, dizziness, nausea, vomiting, abdominal pain, chest pain, shortness of breath, fever, chills, weakness, or any other concerning symptoms. Please follow-up with primary care provider and endocrinology Prescriptions: No Action insulin lispro protamin-lispro 100 unit/mL (75-25) insulin pen 45 unit subcut DAILY Rx Instructions: before meals insulin lispro protamin-lispro 100 unit/mL (75-25) insulin pen 60 unit subcut BEDTIME Rx Instructions: before meals ondansetron 4 mg tablet,disintegrating 4 mg PO Q8H PRN (Reason: nausea and vomiting) Qty: 20 0RF promethazine 25 mg tablet 25 mg PO TID PRN (Reason: nausea and vomiting) Qty: 20 0RF Stand Alone Forms: Against Medical Advice Interventions: ED Discharge Assessment Last Done: 10/09/23 00:01 Discharge Date/Time: 10/09/23 00:02 Print Language: Faroese
[2023-10-08] MEDS: Insulin Regular, Human 100 UNIT/ML 3 ML VIAL 10 UNIT IVPUSH (18:41)
[2023-10-08] MEDS: 0.9 % Sodium Chloride 1,000 ML 999 ML IV ×3 (18:46)
--- NOTE | 2023-10-08 18:50 | ECG_ITS ---
Test Reason : DKA Blood Pressure : / mmHG Vent. Rate : 109 BPM Atrial Rate : 109 BPM P-R Int : 136 ms QRS Dur : 080 ms QT Int : 354 ms P-R-T Axes : 065 014 015 degrees QTc Int : 476 ms Sinus tachycardia Nonspecific T wave abnormality Abnormal ECG When compared with ECG of 17-JUL-2023 22:15, Nonspecific T wave abnormality, worse in Lateral leads Referred By: Moshe Worthy Electronically Signed By:WENDY BRAXTON
[2023-10-08 19:07] LABS: Glucose, Whole Blood 173 mg/dL (60-115)
[2023-10-08] MEDS: ondansetron HCL 4 MG/2 ML VIAL IVPUSH (19:08)
[2023-10-08] MEDS: Morphine Sulfate 4 MG/ML CARTRIDGE IVPUSH (19:12)
[2023-10-08 19:14] VITALS: BP 157/97; PULSE 107; RESP 16; TEMP 36.4; O2SAT 100
--- NOTE | 2023-10-08 19:17 | PC.NURSE ---
this rn assumed care of pt. pt reporting 10/10 abdominal pain, pt medicated per oct. vss. provider aware of POC. fluids running at this time, no new orders.
[2023-10-08 20:01] LABS: Troponin-I High Sensitivity 32.6 ng/L (<3.5-35.0)
[2023-10-08 20:03] LABS: Glucose, Whole Blood 67 mg/dL (60-115)
[2023-10-08] MEDS: Dextrose 50 % 25 GM/50 ML SYRINGE IVPUSH (20:05)
--- NOTE | 2023-10-08 20:10 | PC.NURSE ---
provider aware of pt blood POC, pt medicated per mar and given juice. pt reports pain has subsided.
[2023-10-08 20:34] LABS: Glucose, Whole Blood 137 mg/dL (60-115)
[2023-10-08 20:47] LABS: Venous Blood Gas Refer to POC result
[2023-10-08 20:48] LABS: VBG Base Excess 3.4 mmol/L; VBG HCO3 27 mmol/L (22-26); VBG pCO2 39 mmHg; VBG pH 7.45 (7.32-7.43); VBG pO2 77 mmHg
[2023-10-08 21:00] LABS: Anion Gap 12 (12-20); Blood Urea Nitrogen 30 mg/dL (9-16); Calcium 8.6 mg/dL (8.4-10.2); Carbon Dioxide 27 mmol/L (22-29); Chloride 110 mmol/L (96-108); Creatinine Clr Calc Pharmacy 78.2; Estimated Glomerular Filt Rate > 60; Glucose Random 149 mg/dL (60-115); Potassium 3.7 mmol/L (3.3-5.1); Sodium 145 mmol/L (135-145)
[2023-10-08 21:52] VITALS: BP 124/58; PULSE 103; RESP 16; O2SAT 98
[2023-10-08 23:01] LABS: Troponin-I High Sensitivity 33.4 ng/L (<3.5-35.0)
[2023-10-08 23:53] VITALS: BP 121/77; PULSE 100; RESP 16; TEMP 36.4; O2SAT 98
== END 2023-10-09 00:02 | disposition left against medical advice (07) ==
PROVIDERS: Physician Assistant; Student in an Organized Health Care Education/Training Program; Emergency Provider Emergency Medicine; PCP Internal Medicine
DX: E11.10 Type 2 diabetes mellitus with ketoacidosis without coma (principal); Z79.4 Long term (current) use of insulin; R11.2 Nausea with vomiting, unspecified
CPT/HCPCS: 36415; 80048; 80053; 82010; 82803; 82947; 83690; 84484; 85025; 93005; 96361; 96374; 96375; 99285; J2270; J2405

== ENCOUNTER → 2023-10-08 18:50 | Outpatient (BNV) | payer OTHER, SELFPAY | PROVIDERS: Emergency Provider Emergency Medicine; PCP Internal Medicine; Visit Provider Internal Medicine | DX: R00.0 Tachycardia, unspecified (principal) | CPT/HCPCS: 93010 ==

== ENCOUNTER 2023-10-10 21:05 | Emergency (ER) | payer OTHER, SELFPAY ==
[2023-10-10 21:09] VITALS: BP 169/96; PULSE 99; RESP 16; TEMP 36.5; O2SAT 98; BMI 25.8
[2023-10-10 21:38] LABS: Glucose, Whole Blood 259 mg/dL (60-115)
[2023-10-10 21:41] LABS: MANUAL DIFF FLAG NO
--- NOTE | 2023-10-10 21:41 | MHC.EDTECH ---
Patient brought into triage area,POC taken and is 259,Vida RN made aware. Labs obtained and sent to lab.
[2023-10-10 21:43] LABS: Basophils Percent Auto 0.4 % (0-2); Eosinophils Percent Auto 0.1 % (0-4); Hematocrit 42.5 % (42.0-52.0); Hemoglobin 14.7 g/dl (14.0-18.0); Imm Gran Abs Auto 0.03 X10*3/uL (0.00-0.03); Imm Gran Pct Auto 0.3 % (0.0-0.4); Lymphocytes Absolute Auto 1.5 X10*3/uL (1.2-4.9); Mean Corpuscular HGB Conc 34.6 g/dl (31.0-36.0); Mean Corpuscular Hemoglobin 28.9 pg (27.0-33.0); Mean Corpuscular Volume 83.5 fL (80.0-98.0); Mean Platelet Volume 9.6 fL (9.4-12.4); Monocytes Percent Auto 9.8 % (2-11); Neutrophils Percent Auto 75.4 % (45-73); Platelet Count 280 X10*3/uL (160-400); Red Blood Count 5.09 X10*6/uL (4.60-5.80); Red Cell Distribution Width 12.4 % (11.0-16.0); White Blood Count 10.6 X10*3/uL (4.8-10.8)
[2023-10-10 21:46] LABS: VBG Base Excess 4.7 mmol/L; VBG HCO3 29 mmol/L (22-26); VBG pCO2 44 mmHg; VBG pH 7.43 (7.32-7.43); VBG pO2 53 mmHg
[2023-10-10 21:56] LABS: Venous Blood Gas Refer to POC result
[2023-10-10 22:02] LABS: Alanine Aminotransferase 10 U/L (0-40); Albumin Level 3.8 g/dL (3.5-5.0); Alkaline Phosphatase 72 U/L (39-117); Anion Gap 13 (12-20); Aspartate Amino Transferase 11 U/L (5-37); Beta-Hydroxybutyrate 0.66 mmol/L (0.02-0.27); Bilirubin Total 0.6 mg/dL (0.0-1.0); Blood Urea Nitrogen 14 mg/dL (9-16); Calcium 9.2 mg/dL (8.4-10.2); Carbon Dioxide 30 mmol/L (22-29); Chloride 95 mmol/L (96-108); Creatinine Clr Calc Pharmacy 99.1; Estimated Glomerular Filt Rate > 60; Glucose Random 294 mg/dL (60-115); Potassium 3.6 mmol/L (3.3-5.1); Sodium 134 mmol/L (135-145); Total Protein 6.6 g/dL (6.5-8.0)
[2023-10-10 22:06] LABS: Troponin-I High Sensitivity 2.8 ng/L (<3.5-35.0)
[2023-10-10 22:23] LABS: Influenza A PCR NEGATIVE (Negative); Influenza B PCR NEGATIVE (Negative); Resp Syncy Virus RNA Qual PCR NEGATIVE (Negative); SARS COV2 PCR INHOUSE NEGATIVE (Negative)
[2023-10-11 00:10] VITALS: BP 140/93; PULSE 90; RESP 16; O2SAT 99
[2023-10-11 00:15] LABS: Glucose, Whole Blood 113 mg/dL (60-115)
--- NOTE | 2023-10-11 00:23 | ED_ITS ---
HPI - Nausea/Vomiting/Diarrhea General Chief complaint: Nausea/Vomiting/Diarrhea Stated complaint: ?diabetic ketoacidosis Time Seen by Provider: 10/11/23 00:22 Source: patient Mode of arrival: ambulatory Limitations: no limitations History of Present Illness HPI Narrative: 28-year-old male with a history of diabetes mellitus, DKA who presents emergency department for evaluation of nausea, vomiting and abdominal pain. States that these symptoms are consistent with his diabetic ketoacidosis. Patient was seen in the emergency department on 10/08/2023 for similar symptoms and a thiamine was told that he was in DKA secondary to an elevated anion gap of 24. Patient was treated and was recommended that he be admitted to the hospital however he left AMA. He states that since being home he continues to have epigastric sharp pain which is constant and 9/10. He also has nausea and vomiting, he states he is able to hold down some fluid but not hold down any food. Patient states that he has had sweats but denied fever or chills. He denied rhinorrhea, sore throat, cough, chest pain shortness of breath or dyspnea on exertion. He denied diarrhea, urinary frequency or dysuria. Patient states he has been tested for gastroparesis and was told that he does not have this condition. Patient does smoke marijuana 2-4 times daily. Related Data Home Medications Medication Instructions Recorded Confirmed insulin lispro protamine-lispro 45 unit subcut DAILY 04/30/22 07/13/23 100 unit/mL (75-25) subcutaneous pen insulin lispro protamine-lispro 60 unit subcut BEDTIME 10/31/22 07/13/23 100 unit/mL (75-25) subcutaneous pen Previous Rx's Medication Instructions Recorded ondansetron 4 mg disintegrating 4 mg PO Q8H PRN nausea and 07/18/23 tablet vomiting #20 tabs promethazine 25 mg tablet 25 mg PO TID PRN nausea and 07/18/23 vomiting #20 tabs Allergies Allergy/AdvReac Type Severity Reaction Status Date / Time passion fruit [PASSION FRUIT] Allergy Unknown UNK Verified 10/08/23 13:17 Review of Systems 2 Review of Systems: Yes all other systems are reviewed and are negative PMFSH Past Medical History PMFSH Narrative: Social history: 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 He denies tobacco use. He does drink alcohol occasionally. He does smoke marijuana 2-4 times daily. Medical History Noncompliance with medication regimen Diabetic gastroparesis 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 Esophageal ulcer Leukocytosis Diabetic keto-acidosis Gastroparesis Diabetes Surgical History No pertinent past surgical history Family History Family History Other No family history of coronary artery disease Social History Social History Household Members: None Household Members Other:: 2 Housing: Apartment Do you presently have visiting nurse or other home services: No Alcohol intake: current Alcohol intake frequency: holidays/special occasions only Alcohol type: hard liquor Comment: pt is low fall risk Patient Tobacco Use Status: Never used Tobacco e-Cigarette/Vaping Use: Former Use Substance Use Type: Marijuana Advance Directives: Yes Advance Directives on File: Yes Advance Directives Date on File: 01/22/21 service: No Current occupational status: employed Physical Exam 2 Vital Signs: Vital Signs: Last Vital Signs Temp 97.7 F 10/10/23 21:09 Pulse 90 10/11/23 00:10 Resp 16 10/11/23 00:10 BP 140/93 H 10/11/23 00:10 Pulse Ox 99 10/11/23 00:10 O2 Del Method Room Air 10/11/23 00:10 BMI result Body Mass Index 25.8 Vital signs were normal except for an elevated blood pressure of 140/93 Exam General: Awake, alert in no distress Head: Normocephalic, atraumatic EENT: PERRL, Lids normal, sclera normal, conjunctiva normal, nose normal , ears normal, throat without erythema or exudates Neck: Supple, no adenopathy Lung: breath sounds symmetric, no wheezing, rales or rhonchi Chest: symmetric movement, nontender Heart: regular rate and rhythm, normal S1, S2 no murmurs or rubs Abdomen: soft, moderate epigastric tenderness, nondistended, normal bowel sounds Back: no vertebral tenderness, no CVAT Extremities: no deformities, moves all extremities symmetrically Neuro: Awake, alert, oriented, normal speech, cranial nerves intact, moves all extremities symmetrically Psych: Pleasant, cooperative Medications Administered Discontinued Medications Generic Name Dose Route Start Last Admin Trade Name Roger PRN Reason Stop Dose Admin Dextrose 25 gm 10/11/23 01:38 10/11/23 01:40 Dextrose 50 % 25 Gm/50 Ml Syringe IVPUSH 10/11/23 01:39 25 gm ONCE ONE Administration Lactated Ringer's 1,000 mls @ 999 mls/hr 10/11/23 00:45 10/11/23 02:04 Lr IV 10/11/23 01:45 Infused .Q1H1M DESTINY Infusion Lactated Ringer's 1,000 mls @ 999 mls/hr 10/11/23 00:45 10/11/23 02:05 Lr IV 10/11/23 01:45 Infused .Q1H1M DESTINY Infusion Morphine Sulfate 4 mg 10/11/23 00:41 10/11/23 01:00 Morphine Sulfate 4 Mg/Ml Cartridge IVPUSH 10/11/23 00:42 4 mg ONCE STA Administration Protocol Ondansetron HCl 4 mg 10/11/23 00:41 10/11/23 01:00 Ondansetron Hcl 4 Mg/2 Ml Vial IVPUSH 10/11/23 00:42 4 mg ONCE ONE Administration Medical Decision Making Medical Decision Making MDM Narrative: 28-year-old male with a history of diabetes mellitus, DKA, cyclic vomiting, esophageal ulcers, who presents emergency department for evaluation of nausea, vomiting abdominal pain. Patient was seen on 10/08/2023 with possible DKA, advised to stay in the hospital but left against medical advice. Since being home he is continued to have epigastric pain, nausea and vomiting. He has been able to hold down some fluid but not eat food. Vital signs revealed an elevated blood pressure. Examination revealed epigastric tenderness otherwise was unremarkable. Differential diagnosis: ?Includes but is not limited to diabetic ketoacidosis, starvation ketosis, gastroparesis, cyclic vomiting syndrome, marijuana hyperemesis syndrome, dehydration, electrolyte abnormalities, anemia Following evaluation was ordered: CBC, CMP, beta hydroxybutyrate, venous blood gas, troponin, COVID-19, influenza, RSV Patient was initially treated with the following: Lactated Ringer's x2 L, morphine 4 mg IV and Zofran 4 mg IV Course: 00:56 My interpretation patient's laboratory evaluation is as follows: Sodium low 134, chloride low 95, bicarb elevated 30. Glucose elevated 295. Venous blood gas revealed a elevated pH of 7.43 and elevated bicarb of 29. Beta hydroxybutyrate was positive at 0.66. High sensitive troponin I was detectable but not elevated at 2.8. COVID-19, influenza and RSV were negative. Patient's laboratory evaluation is not consistent with diabetic ketoacidosis suggesting the patient's symptoms are more likely caused by cannabis hyperemesis syndrome. 02:00 Patient was complaining of dizziness is point of care glucose was 30 therefore he was given D50 25 g IV and given juice to drink. Patient was also still complaining of abdominal pain was given a 2nd dose of morphine 4 mg IV. At the end of my shift, the patient's care was turned over to my colleague, Dr. Foote. Admission/Observation Consideration of admission/observation: Escalation of care including admission/observation considered Lab Data MDM Lab Attestation statement: I reviewed the patient's lab results. 10/10/23 21:33 10/10/23 21:33 Labs: Lab Results 10/10/23 10/10/23 10/10/23 Range/Units 21:29 21:33 21:39 WBC 10.6 (4.8-10.8) X10*3/uL RBC 5.09 (4.60-5.80) X10*6/uL Hgb 14.7 (14.0-18.0) g/dl Hct 42.5 (42.0-52.0) % MCV 83.5 (80.0-98.0) fL MCH 28.9 (27.0-33.0) pg MCHC 34.6 (31.0-36.0) g/dl RDW 12.4 (11.0-16.0) % Plt Count 280 (160-400) X10*3/uL MPV 9.6 (9.4-12.4) fL Immature Gran % (Auto) 0.3 (0.0-0.4) % Neut % (Auto) 75.4 H (45-73) % Lymph % (Auto) 14.0 L (20-40) % Bradford % (Auto) 9.8 (2-11) % Eos % (Auto) 0.1 (0-4) % Baso % (Auto) 0.4 (0-2) % Lymph # (Auto) 1.5 (1.2-4.9) X10*3/uL Bradford # (Auto) 1.0 (0.1-1.2) X10*3/uL Eos # (Auto) 0.0 (0.0-0.4) X10*3/uL Baso # (Auto) 0.0 (0.0-0.2) X10*3/uL Abs Immat Gran (auto) 0.03 (0.00-0.03) X10*3/uL Absolute Neuts (auto) 8.0 (2.0-8.3) x10*3/uL Absolute Nucleated RBC 0.000 (0.0-0.012) X10*3/uL Nucleated RBC % (auto) 0.0 (0.0-0.2) /100WBC VBG pH 7.43 (7.32-7.43) VBG pCO2 44 mmHg VBG pO2 53 mmHg VBG HCO3 29 H (22-26) mmol/L VBG O2 Saturation 82.0 % VBG Base Excess 4.7 mmol/L Sodium 134 L (135-145) mmol/L Potassium 3.6 (3.3-5.1) mmol/L Chloride 95 L (96-108) mmol/L Carbon Dioxide 30 H (22-29) mmol/L Anion Gap 13 (12-20) BUN 14 (9-16) mg/dL Creatinine 1.01 (0.5-1.4) mg/dL Estim Creat Clear Calc 99.1 Estimated GFR > 60 POC Glucose 259 H (60-115) mg/dL Random Glucose 294 H (60-115) mg/dL Calcium 9.2 D (8.4-10.2) mg/dL Total Bilirubin 0.6 (0.0-1.0) mg/dL AST 11 (5-37) U/L ALT 10 (0-40) U/L Alkaline Phosphatase 72 (39-117) U/L Troponin I High Sens 2.8 D (<3.5-35.0) ng/L Total Protein 6.6 (6.5-8.0) g/dL Albumin 3.8 (3.5-5.0) g/dL Beta-Hydroxybutyrate 0.66 H (0.02-0.27) mmol/L Influenza Type A (PCR) NEGATIVE (Negative) Influenza Type B (PCR) NEGATIVE (Negative) RSV RNA Qual (PCR) NEGATIVE (Negative) SARS-CoV-2 RNA (RT-PCR) NEGATIVE (Negative) 10/11/23 10/11/23 Range/Units 00:08 01:35 WBC (4.8-10.8) X10*3/uL RBC (4.60-5.80) X10*6/uL Hgb (14.0-18.0) g/dl Hct (42.0-52.0) % MCV (80.0-98.0) fL MCH (27.0-33.0) pg MCHC (31.0-36.0) g/dl RDW (11.0-16.0) % Plt Count (160-400) X10*3/uL MPV (9.4-12.4) fL Immature Gran % (Auto) (0.0-0.4) % Neut % (Auto) (45-73) % Lymph % (Auto) (20-40) % Bradford % (Auto) (2-11) % Eos % (Auto) (0-4) % Baso % (Auto) (0-2) % Lymph # (Auto) (1.2-4.9) X10*3/uL Bradford # (Auto) (0.1-1.2) X10*3/uL Eos # (Auto) (0.0-0.4) X10*3/uL Baso # (Auto) (0.0-0.2) X10*3/uL Abs Immat Gran (auto) (0.00-0.03) X10*3/uL Absolute Neuts (auto) (2.0-8.3) x10*3/uL Absolute Nucleated RBC (0.0-0.012) X10*3/uL Nucleated RBC % (auto) (0.0-0.2) /100WBC VBG pH (7.32-7.43) VBG pCO2 mmHg VBG pO2 mmHg VBG HCO3 (22-26) mmol/L VBG O2 Saturation % VBG Base Excess mmol/L Sodium (135-145) mmol/L Potassium (3.3-5.1) mmol/L Chloride (96-108) mmol/L Carbon Dioxide (22-29) mmol/L Anion Gap (12-20) BUN (9-16) mg/dL Creatinine (0.5-1.4) mg/dL Estim Creat Clear Calc Estimated GFR POC Glucose 113 30 L* (60-115) mg/dL Random Glucose (60-115) mg/dL Calcium (8.4-10.2) mg/dL Total Bilirubin (0.0-1.0) mg/dL AST (5-37) U/L ALT (0-40) U/L Alkaline Phosphatase (39-117) U/L Troponin I High Sens (<3.5-35.0) ng/L Total Protein (6.5-8.0) g/dL Albumin (3.5-5.0) g/dL Beta-Hydroxybutyrate (0.02-0.27) mmol/L Influenza Type A (PCR) (Negative) Influenza Type B (PCR) (Negative) RSV RNA Qual (PCR) (Negative) SARS-CoV-2 RNA (RT-PCR) (Negative) Chronic Conditions Patient?s care impacted by: Diabetes Discharge Plan Discharge Clinical Impression: Cyclic vomiting syndrome, Cannabis use disorder, Acute dehydration Abdominal pain Qualifiers: Abdominal location: epigastric Qualified Code(s): R10.13 - Epigastric pain Patient Disposition: Still a Patient Additional Instructions: Your blood work today was NOT consistent with diabetic ketoacidosis. At this time I suspect that you have cyclic vomiting syndrome which is most likely related to your use of marijuana. Marijuana can change your brain chemistries and cause you to vomit repeatedly and can also cause abdominal pain. Sometimes you need to stop smoking marijuana for greater than 6 months before your symptoms improve. Continue to use either Zofran or Reglan that you have at home for your nausea and vomiting. Follow-up with your doctor in 2 days. Please return to the emergency department if your symptoms get worse or if you develop any symptoms that are concerning to you. Prescriptions: No Action insulin lispro protamin-lispro 100 unit/mL (75-25) insulin pen 45 unit subcut DAILY Rx Instructions: before meals insulin lispro protamin-lispro 100 unit/mL (75-25) insulin pen 60 unit subcut BEDTIME Rx Instructions: before meals ondansetron 4 mg tablet,disintegrating 4 mg PO Q8H PRN (Reason: nausea and vomiting) Qty: 20 0RF promethazine 25 mg tablet 25 mg PO TID PRN (Reason: nausea and vomiting) Qty: 20 0RF
[2023-10-11] MEDS: ondansetron HCL 4 MG/2 ML VIAL IVPUSH (01:00)
[2023-10-11] MEDS: Morphine Sulfate 4 MG/ML CARTRIDGE IVPUSH ×2 (01:00→02:10)
[2023-10-11] MEDS: Lactated Ringers 1,000 ML 999 ML IV ×2 (01:01)
[2023-10-11 01:39] LABS: Glucose, Whole Blood 30 mg/dL (60-115)
[2023-10-11] MEDS: Dextrose 50 % 25 GM/50 ML SYRINGE IVPUSH (01:40)
[2023-10-11 02:19] VITALS: BP 130/70; PULSE 82; RESP 17; TEMP 36.9; O2SAT 100
[2023-10-11 04:48] LABS: Glucose, Whole Blood 139 mg/dL (60-115)
== END 2023-10-11 03:05 | disposition home or self-care (01) ==
PROVIDERS: Emergency Provider Emergency Medicine Emergency Medical Services; PCP Internal Medicine
DX: R11.15 Cyclical vomiting syndrome unrelated to migraine (principal); F12.90 Cannabis use, unspecified, uncomplicated; E86.0 Dehydration; R10.13 Epigastric pain; E11.9 Type 2 diabetes mellitus without complications; Z11.52 Encounter for screening for COVID-19; Z20.828 Contact with and (suspected) exposure to other viral communicable diseases
CPT/HCPCS: 0241U; 80053; 82010; 82803; 82947; 84484; 85025; 96361; 96374; 96375; 96376; 99284; J2270; J2405; J7120

== ENCOUNTER 2023-10-12 21:32 | Emergency (ER) | payer OTHER, SELFPAY ==
[2023-10-12 21:58] VITALS: BP 155/110; PULSE 86; RESP 18; TEMP 36.8; O2SAT 99; BMI 25.8
[2023-10-12 22:07] LABS: Glucose, Whole Blood 315 mg/dL (60-115)
[2023-10-12 22:45] LABS: MANUAL DIFF FLAG NO
[2023-10-12 22:46] LABS: Basophils Percent Auto 0.3 % (0-2); Eosinophils Percent Auto 0.2 % (0-4); Imm Gran Abs Auto 0.03 X10*3/uL (0.00-0.03); Imm Gran Pct Auto 0.3 % (0.0-0.4); Lymphocytes Absolute Auto 1.4 X10*3/uL (1.2-4.9); Lymphocytes Percent Auto 11.9 % (20-40); Mean Corpuscular HGB Conc 34.9 g/dl (31.0-36.0); Mean Corpuscular Hemoglobin 28.5 pg (27.0-33.0); Mean Corpuscular Volume 81.6 fL (80.0-98.0); Mean Platelet Volume 9.6 fL (9.4-12.4); Monocytes Absolute Auto 1.1 X10*3/uL (0.1-1.2); Monocytes Percent Auto 8.8 % (2-11); Neutrophils Absolute Auto 9.4 x10*3/uL (2.0-8.3); Neutrophils Percent Auto 78.5 % (45-73); Platelet Count 308 X10*3/uL (160-400); Red Blood Count 5.27 X10*6/uL (4.60-5.80); Red Cell Distribution Width 12.2 % (11.0-16.0)
[2023-10-12 22:49] LABS: VBG Base Excess 7.1 mmol/L; VBG HCO3 29 mmol/L (22-26); VBG pCO2 35 mmHg; VBG pH 7.52 (7.32-7.43); VBG pO2 50 mmHg
[2023-10-12 22:53] LABS: Venous Blood Gas Refer to POC result
[2023-10-12 23:00] LABS: Alanine Aminotransferase 11 U/L (0-40); Albumin Level 3.8 g/dL (3.5-5.0); Alkaline Phosphatase 70 U/L (39-117); Anion Gap 13 (12-20); Aspartate Amino Transferase 15 U/L (5-37); Beta-Hydroxybutyrate 0.75 mmol/L (0.02-0.27); Bilirubin Total 0.6 mg/dL (0.0-1.0); Blood Urea Nitrogen 8 mg/dL (9-16); Calcium 9.4 mg/dL (8.4-10.2); Carbon Dioxide 29 mmol/L (22-29); Chloride 97 mmol/L (96-108); Creatinine Clr Calc Pharmacy 100.1; Estimated Glomerular Filt Rate > 60; Glucose Random 326 mg/dL (60-115); Potassium 4.4 mmol/L (3.3-5.1); Sodium 135 mmol/L (135-145); Total Protein 6.6 g/dL (6.5-8.0)
--- NOTE | 2023-10-13 00:09 | ED.GENADULT ---
HPI - General Adult General Chief complaint: Abdominal Pain Stated complaint: DKA Time Seen by Provider: 10/12/23 23:48 Source: patient, RN notes reviewed and old records reviewed Mode of arrival: ambulatory Limitations: no limitations History of Present Illness HPI narrative: 28-year-old male with past medical history significant for type 2 diabetes maintained on insulin presents for evaluation of ?I think I am in DKA. ? Patient reports weakness and vomiting for the last 2 days He was seen here 2 days ago for similar complaint The patient reports being compliant with his medications He reports generalized abdominal pain. He also endorses smoking marijuana daily Denies any history abdominal surgeries Related Data Home Medications Medication Instructions Recorded Confirmed insulin lispro protamine-lispro 45 unit subcut DAILY 04/30/22 07/13/23 100 unit/mL (75-25) subcutaneous pen insulin lispro protamine-lispro 60 unit subcut BEDTIME 10/31/22 07/13/23 100 unit/mL (75-25) subcutaneous pen Previous Rx's Medication Instructions Recorded ondansetron 4 mg disintegrating 4 mg PO Q8H PRN nausea and 07/18/23 tablet vomiting #20 tabs promethazine 25 mg tablet 25 mg PO TID PRN nausea and 07/18/23 vomiting #20 tabs Allergies Allergy/AdvReac Type Severity Reaction Status Date / Time passion fruit [PASSION FRUIT] Allergy Unknown UNK Verified 10/12/23 22:04 Review of Systems Constitutional: Constitutional: Denies chills and Denies fever(s) Eyes: Eyes: Denies blurry vision ENT: Denies sore throat Cardiovascular: Cardiovascular: Denies dyspnea Respiratory: Respiratory: Denies cough and Denies dyspnea Gastrointestinal: Gastrointestinal: Reports abdominal pain, Reports nausea and Reports vomiting Musculoskeletal: Musculoskeletal: Denies back pain Integumentary/Breasts: Skin/Breast: Denies rash PMFSH Past Medical History Medical History Noncompliance with medication regimen Diabetic gastroparesis 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 Esophageal ulcer Leukocytosis Diabetic keto-acidosis Gastroparesis Diabetes Surgical History No pertinent past surgical history Family History Family History Other No family history of coronary artery disease Social History Social History Household Members: None Household Members Other:: 2 Housing: Apartment Do you presently have visiting nurse or other home services: No Alcohol intake: current Alcohol intake frequency: holidays/special occasions only Alcohol type: hard liquor Comment: pt is low fall risk Patient Tobacco Use Status: Never used Tobacco e-Cigarette/Vaping Use: Former Use Substance Use Type: Marijuana Advance Directives: Yes Advance Directives on File: Yes Advance Directives Date on File: 01/22/21 service: No Current occupational status: employed Physical Exam ED Vital Signs: Vital Signs - 24 hr 10/12/23 21:58 Temperature 98.2 F Pulse Rate 86 Respiratory Rate 18 Blood Pressure 155/110 H Pulse Oximetry 99 Oxygen Delivery Method Room Air BMI result Body Mass Index 25.8 Const General: healthy appearing, comfortable, no acute distress, alert and awake Nutritional Appearance: well nourished Orientation/consciousness: patient oriented x3 HENMT Head: Yes normocephalic and Yes atraumatic Eyes Eyelids: Yes eyelids normal Conjunctivae: conjunctivae normal Sclerae: sclerae normal Corneas: corneas normal Pupils: Equal, round and reactive pupils present EOM: EOMs intact bilaterally Neck Neck: Yes full ROM Resp Effort & Inspection: normal respiratory effort, able to speak in complete sentences and not labored Cardio Rate: regular rate Rhythm: regular rhythm GI Other: Diffuse abdominal tenderness without guarding Inspection: No distended Palpation (GI): Soft to palpation, not firm, Tenderness to palpation present (GI) in the LLQ, in the RLQ, in the LUQ, in the RUQ and suprapubicly, no guarding and not rigid Skin General skin exam: elasticity normal Neuro General: patient oriented x3 Cranial nerves: Yes Equal, round and reactive pupils present and Yes Bilaterally intact EOM present Cognition (Neuro): normal cognition Extrem Other: Moving all extremities well without any obvious deformities Course Reevaluation(s) Reevaluation #1: Patient's point of care glucose decreased 220, he is stable for discharge Time: 01:30 Medications Administered Discontinued Medications Generic Name Dose Route Start Last Admin Trade Name Freq PRN Reason Stop Dose Admin Sodium Chloride 1,000 mls @ 999 mls/hr 10/12/23 23:45 10/13/23 01:26 Ns IV 10/13/23 00:45 Infused .Q1H1M DESTINY Infusion Insulin Human Regular 5 unit 10/12/23 23:54 10/13/23 00:20 Insulin Regular, Human 100 Unit/Ml 3 Ml Vial IVPUSH 10/12/23 23:55 5 unit ONCE ONE Administration Morphine Sulfate 4 mg 10/12/23 23:54 10/13/23 00:20 Morphine Sulfate 4 Mg/Ml Cartridge IVPUSH 10/12/23 23:55 4 mg ONCE ONE Administration Protocol Ondansetron HCl 4 mg 10/12/23 23:54 10/13/23 00:20 Ondansetron Hcl 4 Mg/2 Ml Vial IVPUSH 10/12/23 23:55 4 mg ONCE ONE Administration Medical Decision Making Medical Decision Making [facility] Narrative: 28-year-old male with history of type 2 diabetes presents for evaluation of abdominal pain and vomiting. He believes he may be in DKA. He was here several times in the last month for similar complaints. He has a leukocytosis of 12.0 K which may be related to vomiting. The patient's glucose is elevated to 326 but no evidence of DKA, the patient's CO2 is normal at 29, anion gap is normal at 13. No electrolyte abnormalities. Will plan to treat his hyperglycemia with IV fluids, insulin treat his pain with morphine and given Zofran for the nausea and vomiting. Plan to re-evaluate. His vomiting may be related to cannabis hyperemesis syndrome. Differential Diagnosis Differential Diagnoses: The differential diagnosis associated with the presentation includes DKA Hyperglycemia Viral syndrome Cannabis hyperemesis syndrome Dehydration Admission/Observation Consideration of admission/observation: Escalation of care including admission/observation considered Consider admission for DKA, however the patient ruled out for DKA. He has hyperglycemia only Lab Data [facility] Lab Attestation statement: I reviewed the patient's lab results. See above 10/12/23 22:40 10/12/23 22:40 Labs: Lab Results 10/12/23 10/12/23 10/12/23 Range/Units 22:02 22:40 22:43 WBC 12.0 H (4.8-10.8) X10*3/uL RBC 5.27 (4.60-5.80) X10*6/uL Hgb 15.0 (14.0-18.0) g/dl Hct 43.0 (42.0-52.0) % MCV 81.6 (80.0-98.0) fL MCH 28.5 (27.0-33.0) pg MCHC 34.9 (31.0-36.0) g/dl RDW 12.2 (11.0-16.0) % Plt Count 308 (160-400) X10*3/uL MPV 9.6 (9.4-12.4) fL Immature Gran % (Auto) 0.3 (0.0-0.4) % Neut % (Auto) 78.5 H (45-73) % Lymph % (Auto) 11.9 L (20-40) % Deuel % (Auto) 8.8 (2-11) % Eos % (Auto) 0.2 (0-4) % Baso % (Auto) 0.3 (0-2) % Lymph # (Auto) 1.4 (1.2-4.9) X10*3/uL Deuel # (Auto) 1.1 (0.1-1.2) X10*3/uL Eos # (Auto) 0.0 (0.0-0.4) X10*3/uL Baso # (Auto) 0.0 (0.0-0.2) X10*3/uL Abs Immat Gran (auto) 0.03 (0.00-0.03) X10*3/uL Absolute Neuts (auto) 9.4 H (2.0-8.3) x10*3/uL Absolute Nucleated RBC 0.000 (0.0-0.012) X10*3/uL Nucleated RBC % (auto) 0.0 (0.0-0.2) /100WBC VBG pH 7.52 H (7.32-7.43) VBG pCO2 35 mmHg VBG pO2 50 mmHg VBG HCO3 29 H (22-26) mmol/L VBG O2 Saturation 84.0 % VBG Base Excess 7.1 mmol/L Sodium 135 (135-145) mmol/L Potassium 4.4 D (3.3-5.1) mmol/L Chloride 97 (96-108) mmol/L Carbon Dioxide 29 (22-29) mmol/L Anion Gap 13 (12-20) BUN 8 L (9-16) mg/dL Creatinine 1.00 (0.5-1.4) mg/dL Estim Creat Clear Calc 100.1 Estimated GFR > 60 POC Glucose 315 H (60-115) mg/dL Random Glucose 326 H (60-115) mg/dL Calcium 9.4 (8.4-10.2) mg/dL Total Bilirubin 0.6 (0.0-1.0) mg/dL AST 15 (5-37) U/L ALT 11 (0-40) U/L Alkaline Phosphatase 70 (39-117) U/L Total Protein 6.6 (6.5-8.0) g/dL Albumin 3.8 (3.5-5.0) g/dL Beta-Hydroxybutyrate 0.75 H (0.02-0.27) mmol/L 10/13/23 Range/Units 01:05 WBC (4.8-10.8) X10*3/uL RBC (4.60-5.80) X10*6/uL Hgb (14.0-18.0) g/dl Hct (42.0-52.0) % MCV (80.0-98.0) fL MCH (27.0-33.0) pg MCHC (31.0-36.0) g/dl RDW (11.0-16.0) % Plt Count (160-400) X10*3/uL MPV (9.4-12.4) fL Immature Gran % (Auto) (0.0-0.4) % Neut % (Auto) (45-73) % Lymph % (Auto) (20-40) % Deuel % (Auto) (2-11) % Eos % (Auto) (0-4) % Baso % (Auto) (0-2) % Lymph # (Auto) (1.2-4.9) X10*3/uL Deuel # (Auto) (0.1-1.2) X10*3/uL Eos # (Auto) (0.0-0.4) X10*3/uL Baso # (Auto) (0.0-0.2) X10*3/uL Abs Immat Gran (auto) (0.00-0.03) X10*3/uL Absolute Neuts (auto) (2.0-8.3) x10*3/uL Absolute Nucleated RBC (0.0-0.012) X10*3/uL Nucleated RBC % (auto) (0.0-0.2) /100WBC VBG pH (7.32-7.43) VBG pCO2 mmHg VBG pO2 mmHg VBG HCO3 (22-26) mmol/L VBG O2 Saturation % VBG Base Excess mmol/L Sodium (135-145) mmol/L Potassium (3.3-5.1) mmol/L Chloride (96-108) mmol/L Carbon Dioxide (22-29) mmol/L Anion Gap (12-20) BUN (9-16) mg/dL Creatinine (0.5-1.4) mg/dL Estim Creat Clear Calc Estimated GFR POC Glucose 220 H (60-115) mg/dL Random Glucose (60-115) mg/dL Calcium (8.4-10.2) mg/dL Total Bilirubin (0.0-1.0) mg/dL AST (5-37) U/L ALT (0-40) U/L Alkaline Phosphatase (39-117) U/L Total Protein (6.5-8.0) g/dL Albumin (3.5-5.0) g/dL Beta-Hydroxybutyrate (0.02-0.27) mmol/L Tests considered The following testing was considered but not selected: Consider CT scan of the abdomen pelvis over the patient's abdomen is nondistended, he has diffuse subjective tenderness but no guarding or rebound. Low suspicion for surgical abdomen. Discharge Plan Discharge Clinical Impression: Vomiting, Acute hyperglycemia Patient Disposition: Home, Self-Care Instructions: Acute Nausea and Vomiting (ED), Diabetic Hyperglycemia (ED) Additional Instructions: Take your insulin as prescribed. Check your blood sugars frequently Drink lots of water. Avoid excessive amounts of food and beverages that are high in sugars and carbohydrates You are not in DKA today Call your primary doctor to schedule follow-up You may want to consider avoiding marijuana as this may be the cause of your symptoms Prescriptions: No Action insulin lispro protamin-lispro 100 unit/mL (75-25) insulin pen 45 unit subcut DAILY Rx Instructions: before meals insulin lispro protamin-lispro 100 unit/mL (75-25) insulin pen 60 unit subcut BEDTIME Rx Instructions: before meals ondansetron 4 mg tablet,disintegrating 4 mg PO Q8H PRN (Reason: nausea and vomiting) Qty: 20 0RF promethazine 25 mg tablet 25 mg PO TID PRN (Reason: nausea and vomiting) Qty: 20 0RF
[2023-10-13] MEDS: 0.9 % Sodium Chloride 1,000 ML 999 ML IV (00:20)
[2023-10-13] MEDS: Morphine Sulfate 4 MG/ML CARTRIDGE IVPUSH (00:20)
[2023-10-13] MEDS: ondansetron HCL 4 MG/2 ML VIAL IVPUSH (00:20)
[2023-10-13] MEDS: Insulin Regular, Human 100 UNIT/ML 3 ML VIAL IVPUSH (00:20)
--- NOTE | 2023-10-13 00:20 | PC.NURSE ---
late entry- pt from home reporting increasing symptoms of abdominal pain, nausea and vomiting. pt reports hx of dka and reports being seen here over the weekend for similar symptoms. upon arrival pt blood glucose elevated. 20G placed in left forearm, pt medicated per oct.
[2023-10-13 01:10] LABS: Glucose, Whole Blood 220 mg/dL (60-115)
== END 2023-10-13 02:14 | disposition home or self-care (01) ==
PROVIDERS: Student in an Organized Health Care Education/Training Program; Emergency Provider Internal Medicine; PCP Internal Medicine
DX: R11.10 Vomiting, unspecified (principal); E11.65 Type 2 diabetes mellitus with hyperglycemia
CPT/HCPCS: 36415; 80053; 82010; 82803; 82947; 85025; 96361; 96374; 96375; 99284; J2270; J2405

== ENCOUNTER → 2024-01-18 09:04 | Outpatient (REF) | payer OTHER, SELFPAY ==
--- NOTE | ~2024-01-18 | NM_ITS ---
EXAMINATION: WI RADIONUCLIDE SOLID FOOD GASTRIC EMPTYING 4-HOUR STUDY CLINICAL INFORMATION: Epigastric pain. COMPARISON: None TECHNIQUE: A standard meal consisting of 4 oz of Egg Beaters brand tagged with 1000 microcuries Tc-99m Sulfur Colloid, 8 oz water and 1 slice of toast with jelly was administered orally to the patient. Images were obtained using a dual head gamma camera in the anterior and posterior projections over of the stomach immediately post ingestion and at hourly intervals up to 4 hours post ingestion. The anterior and posterior counts at each time interval were averaged using the geometric mean and expressed as percentage of the immediate post ingestion counts. FINDINGS: There is good visualization of activity in the stomach immediately post ingestion. As the study progresses, there is good clearance of activity from the stomach and visualization of progressively increasing small bowel activity. By the end of the study, there is almost no retention noted in the stomach. Retention in the stomach at each time interval was: 1 hour 73% (normal 37%-90%) 2 hours 50% (normal 30%-60%) 3 hours 27% 4 hours 1% (normal 0%-10%) WI/WI gastric emptying study IMPRESSION: Normal 4-hour solid food gastric emptying study. For solid meal, rapid gastric emptying is less than 30% at 60 minutes. Delayed gastric emptying criteria is more than 60% remaining at 120 minutes or more than 10% at 240 minutes. The 4-hour value is the best discriminator of a normal or abnormal result). Gastric emptying study grading per JNMT Consensus Recommendations in 2008 (https://tech.snmjournals.org/content/36/144) Grade 1 (mild retention): 11-20% at 4h Grade 2 (moderate retention): 21-35% at 4h Grade 3 (severe retention): 36-50% at 4h Grade 4 (very severe retention): >50% retention at 4h
== END ==
LOC: HO.NUCMED 09:04
PROVIDERS: PCP Internal Medicine; Visit Provider Internal Medicine Gastroenterology
DX: R10.13 Epigastric pain (principal); E10.69 Type 1 diabetes mellitus with other specified complication
CPT/HCPCS: 78264; A9541

== ENCOUNTER 2024-01-31 13:09 | Emergency (ER) | payer OTHER, SELFPAY ==
[2024-01-31 13:18] VITALS: BP 164/106; PULSE 98; RESP 16; TEMP 37.1; O2SAT 99; BMI 26.6
--- NOTE | 2024-01-31 13:18 | ED.GENADULT ---
HPI - General Adult General Chief complaint: Nausea/Vomiting/Diarrhea Stated complaint: Vomiting, weakness - diabetic Time Seen by Provider: 01/31/24 15:59 Source: patient Mode of arrival: ambulatory Limitations: no limitations History of Present Illness HPI narrative: Patient is a 28-year-old male who presents emergency department reporting 2 days of nausea vomiting poor p.o. intake and diffuse midline abdominal pain. He reports that he did not take any of his insulin today, he believes that he may be in DKA. He states when he last checked his blood glucose levels yesterday they were in the 200s. He denies any fevers, chills, back pain, symptoms. He is requesting morphine for his abdominal pain at this time as that is the only thing in the past that has been helpful for him. He admits to continued marijuana usage daily. Related Data Home Medications ?Medication ?Instructions ?Recorded ?Confirmed insulin lispro protamine-lispro 45 unit subcut DAILY 04/30/22 07/13/23 100 unit/mL (75-25) subcutaneous pen insulin lispro protamine-lispro 60 unit subcut BEDTIME 10/31/22 07/13/23 100 unit/mL (75-25) subcutaneous pen Previous Rx's ?Medication ?Instructions ?Recorded ondansetron 4 mg disintegrating 4 mg PO Q8H PRN nausea and 07/18/23 tablet vomiting #20 tabs promethazine 25 mg tablet 25 mg PO TID PRN nausea and 07/18/23 vomiting #20 tabs Allergies Allergy/AdvReac Type Severity Reaction Status Date / Time passion fruit [PASSION FRUIT] Allergy Unknown UNK Verified 01/31/24 13:20 Review of Systems Review of Systems: Yes all other systems are reviewed and are negative PMFSH Past Medical History Attestation statement: The following information was validated with the patient. Source: old records reviewed Medical History Noncompliance with medication regimen Diabetic gastroparesis 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 Esophageal ulcer Leukocytosis Diabetic keto-acidosis Gastroparesis Diabetes Surgical History No pertinent past surgical history Family History Family History Other No family history of coronary artery disease Social History Social History Household Members: None Household Members Other:: 2 Housing: Apartment Do you presently have visiting nurse or other home services: No Alcohol intake: never Comment: pt is low fall risk Patient Tobacco Use Status: Never used Tobacco e-Cigarette/Vaping Use: Former Use Substance Use Type: Marijuana Advance Directives: Yes Advance Directives on File: Yes Advance Directives Date on File: 01/22/21 Do you have a plan to hurt others: No Plan service: No Current occupational status: employed Physical Exam ED Vital Signs: Vital Signs - 24 hr 01/31/24 13:18 01/31/24 15:37 01/31/24 16:00 Temperature 98.7 F 97.9 F 97.8 F Pulse Rate 98 112 H 105 H Respiratory Rate 16 16 15 Blood Pressure 164/106 H 174/126 H 135/86 Pulse Oximetry 99 98 100 Oxygen Delivery Method Room Air Room Air Room Air 01/31/24 17:50 01/31/24 18:00 01/31/24 20:11 Temperature 98.5 F 98.5 F Pulse Rate 91 91 Respiratory Rate 14 14 Blood Pressure 123/85 123/85 Pulse Oximetry 99 99 Oxygen Delivery Method Room Air Room Air BMI result Body Mass Index 26.6 Appearance: Alert.?Oriented to person, place and time. No acute distress.?Normal affect. Eyes: Pupils equal, round and reactive to light.? ENT: Pharynx normal.?? Neck: Normal inspection.? Neck supple.?? CVS: Heart sounds normal. Normal heart rate and rhythm.? Pulses normal.?? Respiratory: No respiratory distress.? Lung sounds clear to auscultation bilaterally?? Abdomen: Soft with diffuse tenderness upon palpation. No rigidity. No guarding. No CVA tenderness. Normoactive bowel sounds.?? Skin: Skin warm and dry.? Normal skin color.? ?? Extremities: No lower extremity edema.? Neuro: Moves all extremities spontaneously. Sensation intact bilaterally. Ambulates with normal steady gait. Course Course Course Narrative: This is a rapid medical exam performed by Rd Khalil NP: Additional HPI, ROS, PE not included below will be deferred to primary provider. Patient is a 28-year-old male with DM presenting to the ED with complaint of nausea, vomiting, abdominal pain and not feeling well for the past 2 days. Unable to tolerate PO. Has been taking his insulin as prescribed. States he feels like he is in DKA and that this happens to him frequently. Plan: labs, UA Reevaluation(s) Reevaluation #1: Patient reports improvement in pain after receiving IV morphine. He is tolerating oral intake at this time eating a ham and cheese sandwich without nausea and vomiting. At this time feel that he is stable for discharge home. Outpatient follow-up with primary care providers. Strict return precautions. Questions answered Medications Administered Discontinued Medications Generic Name Dose Route Start Last Admin Trade Name Freq PRN Reason Stop Dose Admin Droperidol 1.25 mg 01/31/24 15:54 01/31/24 16:25 Droperidol 5 Mg/2 Ml Vial IVPUSH 01/31/24 15:55 1.25 mg ONCE ONE Administration Lactated Ringer's 1,000 mls @ 999 mls/hr 01/31/24 15:53 01/31/24 18:29 Lr IV 01/31/24 16:53 Infused .Q1H1M ONE Infusion Lactated Ringer's 1,000 mls @ 999 mls/hr 01/31/24 15:53 01/31/24 19:51 Lr IV 01/31/24 16:53 Infused .Q1H1M ONE Infusion Insulin Human Regular 10 unit 01/31/24 15:53 01/31/24 16:25 Insulin Regular, Human 100 Unit/Ml 10 Ml Vial IVPUSH 01/31/24 15:54 10 unit ONCE ONE Administration Morphine Sulfate 4 mg 01/31/24 17:42 01/31/24 17:50 Morphine Sulfate 4 Mg/Ml Cartridge IVPUSH 01/31/24 17:43 4 mg ONCE ONE Administration Protocol Ondansetron HCl 4 mg 01/31/24 17:42 01/31/24 17:50 Ondansetron Hcl 4 Mg/2 Ml Vial IVPUSH 01/31/24 17:43 4 mg ONCE ONE Administration Medical Decision Making Medical Decision Making MDM Narrative: Patient is a 28-year-old male with past medical history of diabetes, gastroparesis, cyclical vomiting who presents to the emergency department for evaluation of nausea vomiting poor p.o. intake and abdominal pain as per HPI. He believes he may be in DKA, he has had visits to this emergency department in the past similarly. On review of labs obtained prior to my assumption of care CBC is without leukocytosis, no anemia, no thrombocytopenia. Chemistry revealing hyponatremia of 128 however corrected for hyperglycemia is 134, random glucose 487 however no anion gap, carbon dioxide within normal range at 25. Noted to have mild GISSELLE with BUN/creatinine . LFT within normal range. Patient receive lactated Ringer's 2 L IV bolus, insulin regular 10 units IV push, and will trial droperidol, should symptoms not improve will consider morphine for further management. Differential Diagnosis Differential Diagnoses: The differential diagnosis associated with the presentation includes (Cyclical vomiting, cannabis hyperemesis syndrome, DKA, hyperglycemia in a diabetic, viral syndrome) Admission/Observation Consideration of admission/observation: Escalation of care including admission/observation considered Considered admission due to concern for DKA, however Not currently presenting in DKA, hyperglycemic, if glucose is able to be controlled in has symptomatic improvement will likely be discharged home Lab Data MDM Lab Attestation statement: I reviewed the patient's lab results. (See narrative above) 01/31/24 13:58 01/31/24 13:58 Labs: Lab Results 01/31/24 01/31/24 01/31/24 Range/Units 13:55 13:58 14:02 WBC 9.6 (4.8-10.8) X10*3/uL RBC 5.30 (4.60-5.80) X10*6/uL Hgb 15.2 (14.0-18.0) g/dl Hct 44.1 (42.0-52.0) % MCV 83.2 (80.0-98.0) fL MCH 28.7 (27.0-33.0) pg MCHC 34.5 (31.0-36.0) g/dl RDW 12.7 (11.0-16.0) % Plt Count 292 (160-400) X10*3/uL MPV 10.2 (9.4-12.4) fL Immature Gran % (Auto) 0.4 (0.0-0.4) % Neut % (Auto) 76.5 H (45-73) % Lymph % (Auto) 14.5 L (20-40) % [place] % (Auto) 8.4 (2-11) % Eos % (Auto) 0.0 (0-4) % Baso % (Auto) 0.2 (0-2) % Lymph # (Auto) 1.4 (1.2-4.9) X10*3/uL [place] # (Auto) 0.8 (0.1-1.2) X10*3/uL Eos # (Auto) 0.0 (0.0-0.4) X10*3/uL Baso # (Auto) 0.0 (0.0-0.2) X10*3/uL Abs Immat Gran (auto) 0.04 H (0.00-0.03) X10*3/uL Absolute Neuts (auto) 7.3 (2.0-8.3) x10*3/uL Absolute Nucleated RBC 0.000 (0.0-0.012) X10*3/uL Nucleated RBC % (auto) 0.0 (0.0-0.2) /100WBC VBG pH 7.38 (7.32-7.43) VBG pCO2 42 mmHg VBG pO2 45 mmHg VBG HCO3 25 (22-26) mmol/L VBG O2 Saturation 68.0 % VBG Base Excess 0.4 mmol/L Sodium 128 L (135-145) mmol/L Potassium 4.6 (3.3-5.1) mmol/L Chloride 88 L (96-108) mmol/L Carbon Dioxide 25 (22-29) mmol/L Anion Gap 20 (12-20) BUN 26 H (9-16) mg/dL Creatinine 1.43 H (0.5-1.4) mg/dL Estim Creat Clear Calc 70.0 Estimated GFR 59 POC Glucose 476 H* (60-115) mg/dL Random Glucose 487 H* (60-115) mg/dL Calcium 8.9 (8.4-10.2) mg/dL Magnesium 2.2 (1.6-2.6) mg/dL Total Bilirubin 0.5 (0.0-1.0) mg/dL AST 13 (5-37) U/L ALT 10 (0-40) U/L Alkaline Phosphatase 106 (39-117) U/L Total Protein 7.3 (6.5-8.0) g/dL Albumin 3.9 (3.5-5.0) g/dL Beta-Hydroxybutyrate 3.61 H (0.02-0.27) mmol/L Urine Color Urine Appearance Urine pH (5.0-9.0) Ur Specific [place] (1.005-1.025) Urine Protein (Neg-Trace) mg/dL Urine Glucose (UA) (Negative) mg/dL Urine Ketones (Negative) mg/dL Urine Blood (Negative) Urine Nitrite (Negative) Ur Leukocyte Esterase (Negative) Urine RBC (0-2) /HPF Urine WBC (0-5) /HPF Ur Squamous Epith Cells (0-2) /HPF Urine Bacteria (None Seen) Hyaline Casts (0-2) /LPF Granular Casts 01/31/24 01/31/24 01/31/24 Range/Units 16:12 17:44 18:52 WBC (4.8-10.8) X10*3/uL RBC (4.60-5.80) X10*6/uL Hgb (14.0-18.0) g/dl Hct (42.0-52.0) % MCV (80.0-98.0) fL MCH (27.0-33.0) pg MCHC (31.0-36.0) g/dl RDW (11.0-16.0) % Plt Count (160-400) X10*3/uL MPV (9.4-12.4) fL Immature Gran % (Auto) (0.0-0.4) % Neut % (Auto) (45-73) % Lymph % (Auto) (20-40) % [place] % (Auto) (2-11) % Eos % (Auto) (0-4) % Baso % (Auto) (0-2) % Lymph # (Auto) (1.2-4.9) X10*3/uL [place] # (Auto) (0.1-1.2) X10*3/uL Eos # (Auto) (0.0-0.4) X10*3/uL Baso # (Auto) (0.0-0.2) X10*3/uL Abs Immat Gran (auto) (0.00-0.03) X10*3/uL Absolute Neuts (auto) (2.0-8.3) x10*3/uL Absolute Nucleated RBC (0.0-0.012) X10*3/uL Nucleated RBC % (auto) (0.0-0.2) /100WBC VBG pH (7.32-7.43) VBG pCO2 mmHg VBG pO2 mmHg VBG HCO3 (22-26) mmol/L VBG O2 Saturation % VBG Base Excess mmol/L Sodium (135-145) mmol/L Potassium (3.3-5.1) mmol/L Chloride (96-108) mmol/L Carbon Dioxide (22-29) mmol/L Anion Gap (12-20) BUN (9-16) mg/dL Creatinine (0.5-1.4) mg/dL Estim Creat Clear Calc Estimated GFR POC Glucose 487 H* 259 H (60-115) mg/dL Random Glucose (60-115) mg/dL Calcium (8.4-10.2) mg/dL Magnesium (1.6-2.6) mg/dL Total Bilirubin (0.0-1.0) mg/dL AST (5-37) U/L ALT (0-40) U/L Alkaline Phosphatase (39-117) U/L Total Protein (6.5-8.0) g/dL Albumin (3.5-5.0) g/dL Beta-Hydroxybutyrate (0.02-0.27) mmol/L Urine Color Yellow Urine Appearance Clear Urine pH 5.5 (5.0-9.0) Ur Specific [place] >= 1.030 H (1.005-1.025) Urine Protein 300 (3+) H (Neg-Trace) mg/dL Urine Glucose (UA) >=1000 H (Negative) mg/dL Urine Ketones 40 (Negative) mg/dL Urine Blood Small (1+) H (Negative) Urine Nitrite Negative (Negative) Ur Leukocyte Esterase Negative (Negative) Urine RBC 0-2 (0-2) /HPF Urine WBC 0-5 (0-5) /HPF Ur Squamous Epith Cells 0-2 (0-2) /HPF Urine Bacteria None Seen (None Seen) Hyaline Casts 3-5 (0-2) /LPF Granular Casts Present External Record Review External record reviewed: Outpatient record Tests considered The following testing was considered but not selected: Considered CT abdomen and pelvis, benign examination, suspect less likely to be acute abdomen Critical Care Time Critical Care Time Critical Care Time: Yes Total Critical Care Time: 35 Attestation: I personally attest to this critical care time spent taking care of the patient exclusive of all other billable procedures was approximately 35 minutes including initial evaluation of patient, ordering tests, IV morphine administration and re-evaluation, medical consultation, documentation, re-evaluation. Discharge Plan Discharge Clinical Impression: Acute hyperglycemia, Abdominal pain Patient Disposition: Home, Self-Care Instructions: Abdominal Pain (ED), Diabetic Hyperglycemia (ED) Additional Instructions: Please continue taking all your medications as prescribed including your insulin. Check your blood sugars frequently. Be sure that you are staying well hydrated, drinking plenty of water, avoiding foods that are high in sugar and carbohydrates. Follow-up with your primary care provider. Return to emergency department any new or worsening symptoms or concerns. Prescriptions: No Action insulin lispro protamin-lispro 100 unit/mL (75-25) insulin pen 45 unit subcut DAILY Rx Instructions: before meals insulin lispro protamin-lispro 100 unit/mL (75-25) insulin pen 60 unit subcut BEDTIME Rx Instructions: before meals ondansetron 4 mg tablet,disintegrating 4 mg PO Q8H PRN (Reason: nausea and vomiting) Qty: 20 0RF promethazine 25 mg tablet 25 mg PO TID PRN (Reason: nausea and vomiting) Qty: 20 0RF Referrals: Papi Olivo MD [Primary Care Provider] - Interventions: ED Discharge Assessment Last Done: 01/31/24 20:11 Discharge Date/Time: 01/31/24 20:12 Print Language: Andorran
[2024-01-31 14:00] LABS: Glucose, Whole Blood 476 mg/dL (60-115)
[2024-01-31 14:07] LABS: MANUAL DIFF FLAG NO
[2024-01-31 14:08] LABS: Venous Blood Gas Refer to POC result
[2024-01-31 14:09] LABS: Basophils Percent Auto 0.2 % (0-2); Hematocrit 44.1 % (42.0-52.0); Hemoglobin 15.2 g/dl (14.0-18.0); Imm Gran Abs Auto 0.04 X10*3/uL (0.00-0.03); Imm Gran Pct Auto 0.4 % (0.0-0.4); Lymphocytes Absolute Auto 1.4 X10*3/uL (1.2-4.9); Lymphocytes Percent Auto 14.5 % (20-40); Mean Corpuscular HGB Conc 34.5 g/dl (31.0-36.0); Mean Corpuscular Hemoglobin 28.7 pg (27.0-33.0); Mean Corpuscular Volume 83.2 fL (80.0-98.0); Mean Platelet Volume 10.2 fL (9.4-12.4); Monocytes Absolute Auto 0.8 X10*3/uL (0.1-1.2); Monocytes Percent Auto 8.4 % (2-11); Neutrophils Absolute Auto 7.3 x10*3/uL (2.0-8.3); Neutrophils Percent Auto 76.5 % (45-73); Platelet Count 292 X10*3/uL (160-400); Red Cell Distribution Width 12.7 % (11.0-16.0); White Blood Count 9.6 X10*3/uL (4.8-10.8)
[2024-01-31 14:11] LABS: VBG Base Excess 0.4 mmol/L; VBG HCO3 25 mmol/L (22-26); VBG pCO2 42 mmHg; VBG pH 7.38 (7.32-7.43); VBG pO2 45 mmHg
[2024-01-31 14:40] LABS: Alanine Aminotransferase 10 U/L (0-40); Albumin Level 3.9 g/dL (3.5-5.0); Alkaline Phosphatase 106 U/L (39-117); Anion Gap 20 (12-20); Aspartate Amino Transferase 13 U/L (5-37); Bilirubin Total 0.5 mg/dL (0.0-1.0); Blood Urea Nitrogen 26 mg/dL (9-16); Calcium 8.9 mg/dL (8.4-10.2); Carbon Dioxide 25 mmol/L (22-29); Chloride 88 mmol/L (96-108); Estimated Glomerular Filt Rate 59; Glucose Random 487 mg/dL (60-115); Magnesium 2.2 mg/dL (1.6-2.6); Potassium 4.6 mmol/L (3.3-5.1); Sodium 128 mmol/L (135-145); Total Protein 7.3 g/dL (6.5-8.0)
[2024-01-31 14:41] LABS: Beta-Hydroxybutyrate 3.61 mmol/L (0.02-0.27)
[2024-01-31 15:37] VITALS: BP 174/126; PULSE 112; RESP 16; TEMP 36.6; O2SAT 98
--- NOTE | 2024-01-31 15:41 | PC.NURSE ---
Pt presents to ED with n/v/d x2 days. BP and P elevated, Pt is unable to sit still and reports pacing/standing feels more comfortable. Afebrile and skin is warm and dry. Awaiting provider eval and orders. Labs completed.
[2024-01-31 16:00] VITALS: BP 135/86; PULSE 105; RESP 15; TEMP 36.6; O2SAT 100
[2024-01-31 16:17] LABS: Glucose, Whole Blood 487 mg/dL (60-115)
[2024-01-31] MEDS: droPERidol 5 MG/2 ML VIAL 1.25 MG IVPUSH (16:25)
[2024-01-31] MEDS: Insulin Regular, Human 100 UNIT/ML 10 ML VIAL 10 UNIT IVPUSH (16:25)
[2024-01-31] MEDS: Lactated Ringers 1,000 ML 999 ML IV ×2 (16:30→18:31)
--- NOTE | 2024-01-31 16:34 | PC.NURSE ---
IV access achieved and Pt medicated per MAR. Pt expresses dissatisfaction with his medications and requests morphine as he reports it is the only medication that can control his pain. Will report to provider.
--- NOTE | 2024-01-31 17:05 | PC.NURSE ---
Assess Pt following initiation of IV fluids and meds. Pt is observed resting comfortably on the bed. (+) rise and fall of chest noted.
[2024-01-31 17:47] LABS: Glucose, Whole Blood 259 mg/dL (60-115)
[2024-01-31 17:50] VITALS: RESP 14
[2024-01-31] MEDS: Morphine Sulfate 4 MG/ML CARTRIDGE IVPUSH (17:50)
[2024-01-31] MEDS: ondansetron HCL 4 MG/2 ML VIAL IVPUSH (17:50)
--- NOTE | 2024-01-31 17:58 | PC.NURSE ---
Pt awake following a short nap. States he is still having pain and requests additional intervention. PA consulted and new orders placed. Pt medicated per OCT BS recheck indicated effective treatment. Fluids still infusing.
[2024-01-31 18:00] VITALS: BP 123/85; PULSE 91; TEMP 36.9; O2SAT 99
[2024-01-31 19:03] LABS: Appearance Urine Clear; Color Urine Yellow; Glucose Urine UA >=1000 mg/dL (Negative); Leukocyte Esterase Urine Negative (Negative); Nitrite Urine Negative (Negative); PH 5.5 (5.0-9.0); Specific Gravity - Urine >= 1.030 (1.005-1.025); UMIC TRIGGER UACC YES; Urine Blood Small (1+) (Negative); Urine Ketones 40 mg/dL (Negative); Urine Protein 300 (3+) mg/dL (Neg-Trace)
[2024-01-31 19:17] LABS: Bacteria Urine None Seen (None Seen); Granular Casts Urine Present; RBC Urine 0-2 /HPF (0-2); Squamous Epithelial Cell Urine 0-2 /HPF (0-2); WBC Urine 0-5 /HPF (0-5)
--- NOTE | 2024-01-31 19:19 | PC.NURSE ---
Assumed care of pt. Pt lying on stretcher, complaining of generalized abdominal pain, 5/. IVF running in L AC at this time.
[2024-01-31 20:11] VITALS: BP 123/85; PULSE 91; RESP 14; TEMP 36.9; O2SAT 99
== END 2024-01-31 20:12 | disposition home or self-care (01) ==
PROVIDERS: Registered Nurse Emergency; Emergency Provider Internal Medicine; PCP Internal Medicine
DX: E11.65 Type 2 diabetes mellitus with hyperglycemia (principal); R11.2 Nausea with vomiting, unspecified; R10.30 Lower abdominal pain, unspecified; F12.90 Cannabis use, unspecified, uncomplicated; Z79.899 Other long term (current) drug therapy; Z79.4 Long term (current) use of insulin
CPT/HCPCS: 36415; 80053; 81001; 81003; 82010; 82803; 82947; 83735; 85025; 96361; 96374; 96375; 99285; J1790; J2270; J2405; J7120